=== PATIENT | male | born 1945 | race Caucasian/White ===

== ENCOUNTER 2016-03-19 07:24 | Inpatient (IN) | payer OTHER, BC ==
--- NOTE | 2016-03-19 07:36 | PDOC ---
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 He reports feeling shaky which he states is similar to his prior experience with extreme low blood pressure. He states his blood pressure was 71/ 40 when he checked before coming to the ED. He states he takes a low dose of clonidine ER (1xdaily) which he states lowers his blood pressure slightly, and states if he feels his pressure is too low he pops a salt pill which regulates the pressure. He denies taking the medications today. He reports that after his radiation treatments he has had difficulty controlling his blood pressures (very labile, alternately hypotensive and hypertensive), and reports a recorded high of 249. He states the change between extreme high and low pressures can be within the hour. The patient also states he has cervical problems s/p radiation, but states his neck pain is worse this morning. The pain is similar to previous, no associated facial numbness/tingling vision changes. He denies chest pain, shortness of breath, headache and dizziness. He denies fever, chills, nausea, vomit, diarrhea and constipation. He denies dysuria, frequency, urgency and hematuria. Allergies: NKDA Social history: Denies toxic habits PCP - Dr. Cohen Cardio Dr. Guardado <Casie Moreno - Last Filed: 03/19/16 11:54> - General Stated Complaint: WEAKNESS Time Seen by Provider: 03/19/16 07:36 Past History - Past Medical History Cancer: Yes HTN: Yes Hypercholesterolemia: Yes Thyroid Disease: Yes (hypo) - Psycho/Social/Smoking Cessation Hx Suicidal Ideation: No Smoking History: Unknown if ever smoked Hx Alcohol Use: No Drug/Substance Use Hx: No Substance Use Type: None Hx Substance Use Treatment: No <Ronal Choudhury - Last Filed: 03/19/16 11:02> <Casie Moreno - Last Filed: 03/19/16 11:54> - Past Medical History Allergies/Adverse Reactions: Allergies Allergy/AdvReac Type Severity Reaction Status Date / Time tamsulosin HCl [From Flomax] AdvReac Intermediate dizziness Verified 03/19/16 07 :45 Home Medications: Ambulatory Orders Aspirin [ASA -] 81 mg PO DAILY 10/20/15 Cholecalciferol (Vitamin D3) [Vitamin D3] 2,000 unit PO DAILY 10/20/15 Cyanocobalamin (Vitamin B-12) [Vitamin B-12] 1,000 mcg PO DAILY 10/20/15 Levothyroxine Sodium [Unithroid] 125 mcg PO DAILY 10/20/15 Rosuvastatin Calcium [Crestor] 10 mg PO DAILY 10/20/15 Clonidine HCl [Catapres -] 0.1 mg PO BID #60 tablet 10/23/15 Alfuzosin HCl [Uroxatral] 10 mg PO DAILY 03/19/16 Amlodipine Besylate [Norvasc -] 5 mg PO DAILY PRN 03/19/16 Trospium Chloride [Trospium Chloride ER] 20 mg PO DAILY 03/19/16 Review of Systems - Review of Systems Able to Perform ROS?: Yes Comments:: 03/19/16 09:07 CONSTITUTIONAL: No reported: Fever, Chills, Diaphoresis, Generalized Weakness, Malaise, Loss of Appetite HEENT: No reported: Rhinorrhea, Nasal Congestion, Throat Pain, Throat Swelling, Difficulty Swallowing, Mouth Swelling, Ear Pain, Eye Pain, Visual Changes CARDIOVASCULAR: No reported: Chest Pain, Syncope, Palpitations, Irregular Heart Rate, Lightheadedness, Peripheral Edema RESPIRATORY: No reported: Cough, Shortness of Breath, SOB with Exertion, Orthopnea, Wheezing , Stridor, Hemoptysis GASTROINTESTINAL: No reported: Abdominal pain, Abdominal Distension, Nausea, Vomiting, Diarrhea, Constipation, Melena, Hematochezia GENITOURINARY: No reported: Dysuria, Frequency, Urgency, Hesitancy, Flank Pain, Genital Pain MUSCULOSKELETAL: (+) Neck pain. No reported: Myalgia, Arthralgia, Joint Swelling, Back pain, SKIN: No reported: Rash, Itching, Pallor HEMEATOLOGIC/IMMUNOLOGIC: No reported: Easy Bleeding, Easy Bruising, Lymphadenopathy, Frequent infections ENDOCRINE: No reported: Unexplained Weight Gain, Unexplained Weight Loss, Heat Intolerance , Cold Intolerance NEUROLOGIC: (+) Feeling shaky. No reported: Headache, Focal Weakness, Paresthesias, Vertigo , Lightheadedness, Unsteady Gait, Seizure, Mental Status Changes, Incontinence PSYCHIATRIC: No reported: Anxiety, Depression <Casie Moreno - Last Filed: 03/19/16 11:54> *Physical Exam - Vital Signs Last Vital Signs Temp Pulse Resp BP Pulse Ox 97.9 F 94 H 18 181/98 98 03/19/16 07:46 03/19/16 07:54 03/19/16 07:46 03/19/16 07:46 03/19/16 07:54 - Physical Exam Comments: 03/19/16 09:08 GENERAL: The patient is awake, alert, and fully oriented, Nontoxic - in no acute distress. HEAD: Normocephalic, atraumatic. EYES: extraocular movements intact, sclera anicteric, conjunctiva clear. ENT: Normal voice, Moist mucous membranes. NECK: Normal range of motion, supple LUNGS: Breath sounds equal, clear to auscultation bilaterally. No wheezes, no rhonchi, no rales. HEART: Regular rate and rhythm, without murmur, rub or gallop. ABDOMEN: Soft, nontender, normoactive bowel sounds. No guarding, no rebound.No CVA tenderness EXTREMITIES: Normal range of motion, no edema. No clubbing or cyanosis. No cords, erythema, or tenderness. NEUROLOGICAL: No facial assymetry, Normal speech, PSYCH: Normal mood, normal affect. SKIN: Warm, Dry, normal turgor, <Casie Moreno - Last Filed: 03/19/16 11:54> Heart Score/ECG Review - ECG Impressions Comment:: 03/19/16 09:40 Twelve-lead EKG was performed and reviewed by me. There is normal sinus rhythm with a normal rate. Rate of 90 The intervals are normal. There is normal R wave progression Nonspecific ST-T wave changes <Ronal Choudhury - Last Filed: 03/19/16 11:02> ED Treatment Course - LABORATORY CBC & Chemistry Diagram: 03/19/16 08:10 03/19/16 08:10 <Ronal Choudhury - Last Filed: 03/19/16 11:02> - LABORATORY CBC & Chemistry Diagram: 03/19/16 08:10 03/19/16 08:10 - ADDITIONAL ORDERS Additional order review: Laboratory Results 03/19/16 08:10 Sodium 139 Potassium 3.9 Chloride 103 Carbon Dioxide 27 Anion Gap 9 BUN 21 H D Creatinine 1.4 H D Creat Clearance w eGFR 50.25 Random Glucose 143 H D Calcium 9.2 Total Bilirubin 0.5 AST 15 D ALT 25 D Alkaline Phosphatase 70 Total Protein 6.8 Albumin 4.1 03/19/16 08:10 RBC 4.76 MCV 86.3 MCHC 33.0 RDW 14.2 MPV 7.8 Neutrophils % 85.6 H Lymphocytes % 7.0 L D Monocytes % 6.4 Eosinophils % 0.8 Basophils % 0.2 - RADIOLOGY Radiograph Interpretation: 03/19/16 11:53 CXR was read at 09:32 Impression: No acute pathology <Casie Moreno - Last Filed: 03/19/16 11:54> Medical Decision Making - Medical Decision Making 03/19/16 08:03 70y M hx of throat ca s/p radiation and chemotherapy, labile htn, hl, hypothyroidism, presents with feeling mild headache/lightheaded this morning, pt also had passed out per his , took his BP and was 70s/40s, no cp/sob/ diaphoresis/fever/chills. pts bp here is slightly hypertensive. will ck labs will continue to monitor bp will give percocet for neck pain (secondary to radiatio ninjury) will reassess A portion of this note was documented by scribe services under my direction. I have reviewed the details of the note, within reason, and agree with the documentation with the following case summary and management plan written by me 03/19/16 09:54 labs reviewed pts bp reassessed, now his BP noted low at 99/[address] Cohen regarding disposition 03/19/16 10:50 03/19/16 11:03 case d/w dr. lara (covering for dr. cohen) wlil admit for further management terry ladmit to telemetry Case discussed in detail with admitting physician including history, physical exam and ancillary studies. Admitting physician has assumed care for the patient, will follow all pending diagnostics and will complete the evaluation and treatment. <Ronal Choudhury - Last Filed: 03/19/16 11:02> - Medical Decision Making 03/19/16 11:22 Dr. Cohen was paged at his office at 9:53 for a doctor to doctor consult. I was informed Dr. Lara is covering [facility] today and she was paged overhead at this time. Dr. Lara was paged a second time at 9:58. Dr. Lara was paged a third time at 10:25. She returned the call at 10:40 and the patient's case was discussed. <Casie Moreno - Last Filed: 03/19/16 11:54> *DC/Admit/Observation/Transfer - Discharge Dispostion Admit: Yes <Ronal Choudhury - Last Filed: 03/19/16 11:02> - Attestations Scribe Attestion: 03/19/16 09:08 Documentation prepared by Casie Moreno, acting as medical tech for Ronal Choudhury MD, MD <Casie Moreno - Last Filed: 03/19/16 11:54> Diagnosis at time of Disposition: Labile hypertension Syncope Qualifiers: Syncope type: unspecified Qualified Code(s): R55 - Syncope and collapse - Referrals
[2016-03-19] MEDS ORDERED: OXYCODONE/APAP 5/325MG COMBO TABLET PO ONE (08:06)
[2016-03-19 08:15] VITALS: BMI 32.5
[2016-03-19 08:36] LABS: BASOPHIL 0.2 % (0-2.0); EOSINOPHIL 0.8 % (0-4.5); MCH 28.5 pg (25.7-33.7); MEAN CELL VOLUME 86.3 fl (80-96); MEAN PLT VOLUME 7.8 fl (7.5-11.1); NEUTROPHILS 85.6 % (42.8-82.8); PLATELET COUNT 169 K/MM3 (134-434); RDW 14.2 % (11.9-15.9); WHITE BLOOD COUNT 10.2 K/mm3 (4.0-10.0)
[2016-03-19 08:51] LABS: INR 1.09 (0.82-1.09)
[2016-03-19 08:55] LABS: ALBUMIN 4.1 g/dl (3.4-5.0); BILIRUBIN,TOTAL 0.5 mg/dL (0.2-1.0); CALCIUM 9.2 mg/dL (8.5-10.1); CREATININE 1.4 mg/dL (0.7-1.3); TOT PROT 6.8 g/dl (6.4-8.2)
[2016-03-19] MEDS ORDERED: OXYCODONE/APAP 5/325MG COMBO TABLET ONE (09:41)
--- NOTE | 2016-03-19 13:42 | HP ---
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 He reports feeling shaky which he states is similar to his prior experience with extreme low blood pressure. He states his blood pressure was 71/ 40 when he checked before coming to the ED. He states he takes a low dose of clonidine ER (1xdaily) which he states lowers his blood pressure slightly, and states if he feels his pressure is too low he pops a salt pill which regulates the pressure. He denies taking the medications today. He reports that after his radiation treatments he has had difficulty controlling his blood pressures (very labile, alternately hypotensive and hypertensive), and reports a recorded high of 249. He states the change between extreme high and low pressures can be within the hour. The patient also states he has cervical problems s/p radiation, but states his neck pain is worse this morning. The pain is similar to previous, no associated facial numbness/tingling vision changes. He denies chest pain, shortness of breath, headache and dizziness. He denies fever, chills, nausea, vomit, diarrhea and constipation. He denies dysuria, frequency, urgency and hematuria. per patient he says he was ok last night then today early in morning he started feeling very cold and turned up heat but n relief then when he tried to get up from bed he passed out and fell in bed and thats when he came to ER he takes clonidine ER 01.g daily in afternoon, per patient his BP is very labile and keeps fluctating BP from as low as 60 spb to 240 sbp. 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[employer] , 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 Home Medications - Allergies Allergies/Adverse Reactions: Allergies Allergy/AdvReac Type Severity Reaction Status Date / Time tamsulosin HCl [From Flomax] AdvReac Intermediate dizziness Verified 03/19/16 07 :45 - Home Medications Home Medications: Ambulatory Orders Aspirin [ASA -] 81 mg PO DAILY 10/20/15 Cholecalciferol (Vitamin D3) [Vitamin D3] 2,000 unit PO DAILY 10/20/15 Cyanocobalamin (Vitamin B-12) [Vitamin B-12] 1,000 mcg PO DAILY 10/20/15 Levothyroxine Sodium [Unithroid] 125 mcg PO DAILY 10/20/15 Rosuvastatin Calcium [Crestor] 10 mg PO DAILY 10/20/15 Clonidine HCl [Catapres -] 0.1 mg PO BID #60 tablet 10/23/15 Alfuzosin HCl [Uroxatral] 10 mg PO DAILY 03/19/16 Amlodipine Besylate [Norvasc -] 5 mg PO DAILY PRN 03/19/16 Trospium Chloride [Trospium Chloride ER] 20 mg PO DAILY 03/19/16 Family Disease History - Family Disease History Family Disease History: CA: Father (G-E junction tumor), Mother (lung ca), Sister (breast ca), Other: Brother (goiter surgery) Review of Systems - Review of Systems Constitutional: reports: No Symptoms Neck: reports: No Symptoms Cardiovascular: reports: No Symptoms Respiratory: reports: No Symptoms Gastrointestinal: reports: No Symptoms Physical Examination Vital Signs: Vital Signs Temperature 97.8 F 03/19/16 13:28 Pulse Rate 84 03/19/16 13:28 Respiratory Rate 18 03/19/16 13:28 Blood Pressure 116/71 03/19/16 13:28 O2 Sat by Pulse Oximetry (%) 96 03/19/16 13:28 Constitutional: Yes: Calm Neck: Yes: Trachea Midline Cardiovascular: Yes: Regular Rate and Rhythm, S1, S2 Respiratory: Yes: CTA Bilaterally Gastrointestinal: Yes: Normal Bowel Sounds, Soft Edema: No Imaging - Results Chest X-ray: Report Reviewed Problem List - Problems (1) Syncope Assessment/Plan: tele echo carotid doppler cardio eval possible slight dehydration will give fluids for 6hrs check UA Code(s): R55 - SYNCOPE AND COLLAPSE Qualifiers: Syncope type: unspecified Qualified Code(s): R55 - Syncope and collapse (2) Labile hypertension Assessment/Plan: cardio clonidine ER 0.1mg daily in afternoon norvasc 5mg only takes of BP> 170 if BP< 80 sbptakes nacl tablet Code(s): I10 - ESSENTIAL (PRIMARY) HYPERTENSION (3) Benign prostatic hypertrophy Assessment/Plan: alfuzosin Code(s): N40.0 - BENIGN PROSTATIC HYPERPLASIA WITHOUT LOWER URINRY TRACT SYMP (4) HLD (hyperlipidemia) Assessment/Plan: crestor check lipid panel Code(s): E78.5 - HYPERLIPIDEMIA, UNSPECIFIED Qualifiers: (5) Hypothyroid Assessment/Plan: check tsh and free t4 Code(s): E03.9 - HYPOTHYROIDISM, UNSPECIFIED (6) Renal insufficiency Assessment/Plan: iv hydration Code(s): N28.9 - DISORDER OF KIDNEY AND URETER, UNSPECIFIED (7) History of throat cancer Assessment/Plan: s/p radiation Code(s): Z85.819 - PRSNL HX OF MALIG NEOPLM OF UNSP SITE LIP,ORAL CAV,& PHARYNX
[2016-03-19] MEDS ORDERED: SODIUM CHLORIDE 1,000 ML IV SCH ×2 (14:15→17:00)
[2016-03-19] MEDS ORDERED: cloNIDine HCL 0.1 MG TABLET PO ONE (17:00)
--- NOTE | 2016-03-19 18:15 | EKG ---
Test Reason : Blood Pressure : / mmHG Vent. Rate : 090 BPM Atrial Rate : 090 BPM P-R Int : 172 ms QRS Dur : 096 ms QT Int : 356 ms P-R-T Axes : 049 -05 027 degrees QTc Int : 435 ms NORMAL SINUS RHYTHM NONSPECIFIC ST ABNORMALITY RSR' OR QR PATTERN IN V1 SUGGESTS RIGHT VENTRICULAR CONDUCTION DELAY ABNORMAL ECG WHEN COMPARED WITH ECG OF 20-OCT-2015 04:47, VENT. RATE HAS INCREASED Confirmed by ROMINA DOTSON, ROBEL ([id number]) on 03/19/2016 6:14:59 PM Referred By: Confirmed By:ROBEL VANEGAS MD
--- NOTE | 2016-03-19 18:34 | CONSULT ---
Consult Consult Specialty:: Cardiology Referred by:: Dr. Murillo Reason for Consultation:: Cardiac evaluation - History of Present Illness Chief Complaint: Dizziness, possible syncope History of Present Illness: Patient is a 70 year male who is well known to our service (sees Dr. 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 He presents to ED feeling his blood pressure being low early this morning. His BP was measured at 71/40 mmHg. He usually takes Clonidine ER in the afternoon which he took yesterday. Early this morning, patient was found lethargic and possibly unable to respond while in his bed. His BP tends to be difficult to control as it goes up as high as 240 systolic and low as 70's systolic. He takes salt pill sometime at extreme low BP. He is awake and alert at this time. He denies chest pain, shortness of breath or palpitation. Denies PND or orthopnea. Denies fever or chills. Denies headache or lightheadedness. 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[employer] , [employer] Home Medications - Allergies Allergies/Adverse Reactions: Allergies Allergy/AdvReac Type Severity Reaction Status Date / Time tamsulosin HCl [From Flomax] AdvReac Intermediate dizziness Verified 03/19/16 07 :45 - Home Medications Home Medications: Ambulatory Orders Aspirin [ASA -] 81 mg PO DAILY 10/20/15 Cholecalciferol (Vitamin D3) [Vitamin D3] 2,000 unit PO DAILY 10/20/15 Cyanocobalamin (Vitamin B-12) [Vitamin B-12] 1,000 mcg PO DAILY 10/20/15 Levothyroxine Sodium [Unithroid] 125 mcg PO DAILY 10/20/15 Rosuvastatin Calcium [Crestor] 10 mg PO DAILY 10/20/15 Clonidine HCl [Catapres -] 0.1 mg PO BID #60 tablet 10/23/15 Alfuzosin HCl [Uroxatral] 10 mg PO DAILY 03/19/16 Amlodipine Besylate [Norvasc -] 5 mg PO DAILY PRN 03/19/16 Trospium Chloride [Trospium Chloride ER] 20 mg PO DAILY 03/19/16 Family Disease History - Family Disease History Family Disease History: CA: Father (G-E junction tumor), Mother (lung ca), Sister (breast ca), Other: Brother (goiter surgery) Review of Systems - Review of Systems Constitutional: denies: Chills, Fever Cardiovascular: denies: Chest Pain, Palpitations, Shortness of Breath Respiratory: denies: Cough, Hemoptysis, Orthopnea, PND, SOB, SOB on Exertion Gastrointestinal: denies: Abdominal Pain, Constipation, Diarrhea, Melena, Nausea , Rectal Bleeding, Vomiting Genitourinary: denies: Dysuria Neurological: reports: Dizziness. denies: Headache, Seizure, Syncope Vital Signs: Vital Signs Temperature 97.9 F 03/19/16 15:15 Pulse Rate 90 03/19/16 15:15 Respiratory Rate 18 03/19/16 15:15 Blood Pressure 181/112 03/19/16 15:15 O2 Sat by Pulse Oximetry (%) 96 03/19/16 15:15 Neck: Yes: Supple Respiratory: Yes: CTA Bilaterally Gastrointestinal: Yes: Normal Bowel Sounds, Soft. No: Tenderness Cardiovascular: Yes: Regular Rate and Rhythm JVD: No Carotid Bruit: No PMI: Non-Displaced Heart Sounds: Yes: S1, S2 Edema: No - Other Data Labs, Other Data: INR, PTT INR 1.09 (0.82-1.09) 03/19/16 08:10 Laboratory Results - last 24 hr 03/19/16 03/19/16 03/19/16 08:01 08:10 08:10 WBC 10.2 H D RBC 4.76 Hgb 13.6 Hct 41.1 MCV 86.3 MCHC 33.0 RDW 14.2 Plt Count 169 MPV 7.8 Neutrophils % 85.6 H Lymphocytes % 7.0 L D Monocytes % 6.4 Eosinophils % 0.8 Basophils % 0.2 INR Sodium 139 Potassium 3.9 Chloride 103 Carbon Dioxide 27 Anion Gap 9 BUN 21 H D Creatinine 1.4 H D Creat Clearance w eGFR 50.25 Random Glucose 143 H D Calcium 9.2 Total Bilirubin 0.5 AST 15 D ALT 25 D Alkaline Phosphatase 70 Total Protein 6.8 Albumin 4.1 Blood Type B POSITIVE Antibody Screen Negative Sinus rhythm with nonspecific ST abnormality Imaging - Results Chest X-ray: Report Reviewed EKG: Report Reviewed Problem List - Problems (1) History of throat cancer Code(s): Z85.819 - PRSNL HX OF MALIG NEOPLM OF UNSP SITE LIP,ORAL CAV,& PHARYNX (2) Hypothyroid Code(s): E03.9 - HYPOTHYROIDISM, UNSPECIFIED Qualifiers: Hypothyroidism type: unspecified Qualified Code(s): E03.9 - Hypothyroidism, unspecified (3) Labile hypertension Code(s): I10 - ESSENTIAL (PRIMARY) HYPERTENSION (4) Syncope Code(s): R55 - SYNCOPE AND COLLAPSE Qualifiers: Syncope type: unspecified Qualified Code(s): R55 - Syncope and collapse (5) Autonomic postural hypotension Code(s): I95.1 - ORTHOSTATIC HYPOTENSION (6) HLD (hyperlipidemia) Code(s): E78.5 - HYPERLIPIDEMIA, UNSPECIFIED Qualifiers: Hyperlipidemia type: pure hypercholesterolemia (7) Labile essential hypertension Code(s): I10 - ESSENTIAL (PRIMARY) HYPERTENSION (8) Renal insufficiency Code(s): N28.9 - DISORDER OF KIDNEY AND URETER, UNSPECIFIED Assessment/Plan 1. Autonomic dysfunction due to radiation therapy after head and neck CA - orthostatic hypotension 2. CAD - non-obstructive 3. HTN/HCVD - at times labile and with hypotension due to above 4. Hypercholesterolemia 5. Hypothyroidism 6. Head and neck CA S/P radiation and chemotherapy PLAN: 1. Clonidine ER as tolerated. Patient had taken other medications including Bystolic which was ineffective. Patient may take his own from home. 2. Continue Crestor 3. Continue ASA 4. DVT prophylaxis 5. Transthoracic echocardiogram to assess LV and valvular function - normal LV systolic function, mild LAD, mild MR, TR, AR and small pericardial effusion Further plans are to follow Gutierrez Acevedo MD
[2016-03-19] MEDS: HEPARIN NA (PORCINE) 5,000 UNITS/ML 1ML VIAL SQ SCH (21:18)
[2016-03-19] MEDS: ROSUVASTATIN CA 10 MG TABLET (FP) PO SCH (21:18)
[2016-03-19 21:52] LABS: PH,URINE 5.5 (5.0-8.0); URINE APPEARANCE CLEAR; URINE BILIRUBIN 1+ (NEGATIVE); URINE BLOOD NEGATIVE (NEGATIVE); URINE COLOR YELLOW; URINE GLUCOSE (UA) NEGATIVE (NEGATIVE); URINE KETONE NEGATIVE (NEGATIVE); URINE LEUK ESTERASE NEGATIVE (NEGATIVE); URINE NITRITE NEGATIVE (NEGATIVE); URINE UROBILINOGEN 0.2 E.U/dl E.U./dl (0.2-1.0)
[2016-03-19 21:59] LABS: URINE PROTEIN 1+ (NEGATIVE)
[2016-03-19] MEDS ORDERED: cloNIDine HCL 0.1 MG TABLET PO SCH (22:00)
[2016-03-19 22:14] LABS: GRANULAR CASTS 14 /lpf; URINE BACTERIA RARE /hpf (NONE SEEN); URINE HYALINE CAST 22 /lpf; URINE MUCUS MANY; URINE RBC 5 /hpf (0-3); URINE WBC 9 /hpf (3-5); YEAST FEW
[2016-03-20] MEDS: LEVOTHYROXINE NA 125 MCG TABLET (FP) PO SCH (06:09)
[2016-03-20 06:46] LABS: MCH 28.9 pg (25.7-33.7); MCHC 33.5 g/dl (32.0-35.9); MEAN CELL VOLUME 86.2 fl (80-96); MEAN PLT VOLUME 7.9 fl (7.5-11.1); PLATELET COUNT 166 K/MM3 (134-434); RDW 14.4 % (11.9-15.9)
[2016-03-20 07:30] LABS: ALBUMIN 3.1 g/dl (3.4-5.0); BILIRUBIN,TOTAL 0.4 mg/dL (0.2-1.0); CALCIUM 8.4 mg/dL (8.5-10.1); CREATININE 1.3 mg/dL (0.7-1.3); MAGNESIUM 2.2 mg/dL (1.8-2.4); PHOSPHOROUS 3.6 mg/dL (2.5-4.9); THYROID STIMULATING HORMONE 3.26 uIU/ml (0.358-3.74); TOT PROT 5.6 g/dl (6.4-8.2); TROPONIN I 0.03 ng/ml (0.00-0.05)
[2016-03-20 07:33] LABS: INR 1.1 (0.82-1.09); PROTHROMBIN TIME (PATIENT) 12.1 SEC (9.98-11.88)
[2016-03-20 07:36] LABS: ACTIVATED PTT 29.1 SECONDS (26.9-34.4)
--- NOTE | 2016-03-20 09:20 | PN ---
Progress Note, Physician - Current Medication List Current Medications: Active Medications Aspirin (Ecotrin -) 81 mg PO DAILY [facility] Clonidine (Catapres -) 0.1 mg PO DAILY [facility] Heparin Sodium (Porcine) (Heparin -) 5,000 unit SQ BID [facility] Last Admin: 03/19/16 21:18 Dose: 5,000 unit Sodium Chloride (Normal Saline -) 1,000 mls @ 50 mls/hr IV ASDIR [facility] Last Admin: 03/19/16 17:16 Dose: 50 mls/hr Levothyroxine Sodium (Synthroid -) 125 mcg PO DAILY@0700 [facility] Last Admin: 03/20/16 06:09 Dose: 125 mcg Rosuvastatin Calcium (Crestor -) 10 mg PO HS [facility] Last Admin: 03/19/16 21:18 Dose: 10 mg - Objective Vital Signs: Vital Signs Temperature 98.1 F 03/20/16 06:00 Pulse Rate 74 03/20/16 06:00 Respiratory Rate 20 03/20/16 06:00 Blood Pressure 100/60 03/20/16 06:00 O2 Sat by Pulse Oximetry (%) 96 03/19/16 21:00 Labs: CBC, BMP 03/20/16 05:35 03/20/16 05:35 INR, PTT INR 1.10 (0.82-1.09) 03/20/16 05:35 Assessment/Plan - Problems (1) Syncope Assessment/Plan: DUE TO LOW BP IVF tele echo carotid doppler cardio eval check UA Code(s): R55 - SYNCOPE AND COLLAPSE Qualifiers: Syncope type: unspecified Qualified Code(s): R55 - Syncope and collapse (2) Labile hypertension Assessment/Plan: cardio clonidine ER 0.1mg daily in afternoon norvasc 5mg only takes of BP> 170 if BP< 80 sbp takes nacl tablet Code(s): I10 - ESSENTIAL (PRIMARY) HYPERTENSION (3) Benign prostatic hypertrophy Assessment/Plan: dc alfuzosin start flomax Code(s): N40.0 - BENIGN PROSTATIC HYPERPLASIA WITHOUT LOWER URINRY TRACT SYMP (4) HLD (hyperlipidemia) Assessment/Plan: crestor check lipid panel Code(s): E78.5 - HYPERLIPIDEMIA, UNSPECIFIED Qualifiers: (5) Hypothyroid Assessment/Plan: check tsh and free t4 Code(s): E03.9 - HYPOTHYROIDISM, UNSPECIFIED (6) Renal insufficiency Assessment/Plan: iv hydration Code(s): N28.9 - DISORDER OF KIDNEY AND URETER, UNSPECIFIED (7) History of throat cancer Assessment/Plan: s/p radiation Code(s): Z85.819 - PRSNL HX OF MALIG NEOPLM OF UNSP SITE LIP,ORAL CAV,& PHARYNX
[2016-03-20] MEDS: HEPARIN NA (PORCINE) 5,000 UNITS/ML 1ML VIAL SQ SCH ×2 (09:58→21:07)
[2016-03-20] MEDS: ASPIRIN COATED 81 MG TABLET.EC PO SCH (09:58)
--- NOTE | 2016-03-20 10:38 | PN ---
Progress Note, Physician History of Present Illness: Labile pressures have improved on extended release clonidine, considering trying transdermal formulation. - Current Medication List Current Medications: Active Medications Aspirin (Ecotrin -) 81 mg PO DAILY [facility] Last Admin: 03/20/16 09:58 Dose: 81 mg Clonidine (Catapres -) 0.1 mg PO DAILY [facility] Heparin Sodium (Porcine) (Heparin -) 5,000 unit SQ BID [facility] Last Admin: 03/20/16 09:58 Dose: 5,000 unit Sodium Chloride (Normal Saline -) 1,000 mls @ 125 mls/hr IV ASDIR [facility] Levothyroxine Sodium (Synthroid -) 125 mcg PO DAILY@0700 [facility] Last Admin: 03/20/16 06:09 Dose: 125 mcg Rosuvastatin Calcium (Crestor -) 10 mg PO HS [facility] Last Admin: 03/19/16 21:18 Dose: 10 mg Tamsulosin HCl (Flomax -) 0.8 mg PO DAILY@0830 [facility] - Objective Vital Signs: Vital Signs Temperature 98.1 F 03/20/16 06:00 Pulse Rate 74 03/20/16 06:00 Respiratory Rate 20 03/20/16 06:00 Blood Pressure 100/60 03/20/16 06:00 O2 Sat by Pulse Oximetry (%) 96 03/19/16 21:00 Constitutional: Yes: No Distress, Calm Neck: Yes: Supple Cardiovascular: Yes: Regular Rate and Rhythm Respiratory: Yes: Regular, CTA Bilaterally Gastrointestinal: Yes: Normal Bowel Sounds, Soft Edema: No Labs: CBC, BMP 03/20/16 05:35 03/20/16 05:35 INR, PTT INR 1.10 (0.82-1.09) 03/20/16 05:35 - ....Imaging EKG: Report Reviewed (Tele shows no events) Problem List - Problems (1) Hypothyroid Code(s): E03.9 - HYPOTHYROIDISM, UNSPECIFIED Qualifiers: Hypothyroidism type: unspecified Qualified Code(s): E03.9 - Hypothyroidism, unspecified (2) Labile hypertension Code(s): I10 - ESSENTIAL (PRIMARY) HYPERTENSION (3) Autonomic postural hypotension Code(s): I95.1 - ORTHOSTATIC HYPOTENSION (4) HLD (hyperlipidemia) Code(s): E78.5 - HYPERLIPIDEMIA, UNSPECIFIED Qualifiers: Hyperlipidemia type: pure hypercholesterolemia Qualified Code(s): E78.0 - Pure hypercholesterolemia Assessment/Plan 09/28/2015 Normal LV size and fxn, mild LVH, mild-mod MR, TR, mild MS, AR 10/21/2015 Renovascular ultrasound showed no renal artery stenosis, increased resistive index bilaterally c/w small vessel renal disease 03/19/2016 normal LV systolic function, mild LAD, mild MR, TR, AR and small pericardial effusion 1. Hypertensive cardiovascular disease with labile hypertension and intermittent postural hypotension referable to dysautonomia post head and neck XRT 2. Non-obstructive CAD, angina pectoris 3. Hyperlipidemia 4. Hypothyroidism 5. Benign prostatic hypertrophy P:1. Continue clondine ER as hemodynamics tolerate, continue ASA 81 qd, Crestor 10 qhs 2. F/u carotid u/s
[2016-03-20] MEDS: SODIUM CHLORIDE 1,000 ML IV SCH (12:18)
[2016-03-20] MEDS ORDERED: cloNIDine HCL 0.1 MG TABLET PO SCH (13:00)
[2016-03-20] MEDS: CLONIDINE 0.1 MG PO SCH (18:08)
[2016-03-20] MEDS: ROSUVASTATIN CA 10 MG TABLET (FP) PO SCH (21:07)
[2016-03-21] MEDS: LEVOTHYROXINE NA 125 MCG TABLET (FP) PO SCH (06:21)
[2016-03-21] MEDS ORDERED: TAMSULOSIN HCL 0.4 MG CAP.ER.24H (FP) PO SCH (08:30)
[2016-03-21 08:46] LABS: CALCIUM 8.6 mg/dL (8.5-10.1); CREATININE 0.8 mg/dL (0.7-1.3)
--- NOTE | 2016-03-21 09:01 | DS ---
Physical Examination Vital Signs: Vital Signs Temperature 98.2 F 03/21/16 06:21 Pulse Rate 70 03/21/16 06:21 Respiratory Rate 18 03/21/16 06:21 Blood Pressure 128/88 03/21/16 06:21 O2 Sat by Pulse Oximetry (%) 98 03/20/16 22:02 Neck: Yes: Supple Cardiovascular: Yes: Regular Rate and Rhythm Respiratory: Yes: Regular, CTA Bilaterally Gastrointestinal: Yes: Normal Bowel Sounds, Soft Labs: CBC, BMP 03/20/16 05:35 03/21/16 05:35 Discharge Summary Reason For Visit: SYNCOPE,LABILE HYPERPERTENSION Current Active Problems History of throat cancer (Acute) Hypothyroid (Acute) Labile hypertension (Acute) Syncope (Acute) Hospital Course: The patient is a 70 year old male, with a significant past medical history of hypertension, hypothyroidism, hyperlipidemia, neuropathy (bilateral feet) and 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 He reports feeling shaky which he states is similar to his prior experience with extreme low blood pressure. He states his blood pressure was 71/ 40 when he checked before coming to the ED. He states he takes a low dose of clonidine ER (1xdaily) which he states lowers his blood pressure slightly, and states if he feels his pressure is too low he pops a salt pill which regulates the pressure. He denies taking the medications today. He reports that after his radiation treatments he has had difficulty controlling his blood pressures (very labile, alternately hypotensive and hypertensive), and reports a recorded high of 249. He states the change between extreme high and low pressures can be within the hour. The patient also states he has cervical problems s/p radiation, but states his neck pain is worse this morning. The pain is similar to previous, no associated facial numbness/tingling vision changes. He denies chest pain, shortness of breath, headache and dizziness. He denies fever, chills, nausea, vomit, diarrhea and constipation. He denies dysuria, frequency, urgency and hematuria. per patient he says he was ok last night then today early in morning he started feeling very cold and turned up heat but n relief then when he tried to get up from bed he passed out and fell in bed and thats when he came to ER he takes clonidine ER 01.g daily in afternoon, per patient his BP is very labile and keeps fluctating BP from as low as 60 spb to 240 sbp. 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) ENT: Yes: Other (tongue ca) Endocrine: Yes: Diabetes Mellitus, Hypothyroidism - Problems (1) Syncope Assessment/Plan: DUE TO LOW BP IVF tele echo carotid doppler cardio eval check UA Code(s): R55 - SYNCOPE AND COLLAPSE Qualifiers: Syncope type: unspecified Qualified Code(s): R55 - Syncope and collapse (2) Labile hypertension Assessment/Plan: cardio clonidine ER 0.1mg daily in afternoon norvasc 5mg only takes of BP> 170 if BP< 80 sbp takes nacl tablet Code(s): I10 - ESSENTIAL (PRIMARY) HYPERTENSION (3) Benign prostatic hypertrophy Assessment/Plan: dc alfuzosin start flomax Code(s): N40.0 - BENIGN PROSTATIC HYPERPLASIA WITHOUT LOWER URINRY TRACT SYMP (4) HLD (hyperlipidemia) Assessment/Plan: crestor check lipid panel Code(s): E78.5 - HYPERLIPIDEMIA, UNSPECIFIED Qualifiers: (5) Hypothyroid Assessment/Plan: check tsh and free t4 Code(s): E03.9 - HYPOTHYROIDISM, UNSPECIFIED (6) Renal insufficiency Assessment/Plan: iv hydration Code(s): N28.9 - DISORDER OF KIDNEY AND URETER, UNSPECIFIED (7) History of throat cancer Assessment/Plan: s/p radiation Code(s): Z85.819 - PRSNL HX OF MALIG NEOPLM OF UNSP SITE LIP,ORAL CAV,& PHARYNX - Instructions Referrals: Fern Murillo MD [Primary Care Provider] - 2 Weeks - Home Medications Comprehensive Discharge Medication List: Ambulatory Orders Aspirin [ASA -] 81 mg PO DAILY 10/20/15 Cholecalciferol (Vitamin D3) [Vitamin D3] 2,000 unit PO DAILY 10/20/15 Cyanocobalamin (Vitamin B-12) [Vitamin B-12] 1,000 mcg PO DAILY 10/20/15 Levothyroxine Sodium [Unithroid] 125 mcg PO DAILY 10/20/15 Rosuvastatin Calcium [Crestor] 10 mg PO DAILY 10/20/15 Clonidine HCl [Catapres -] 0.1 mg PO BID #60 tablet 10/23/15 Trospium Chloride [Trospium Chloride ER] 20 mg PO DAILY 03/19/16 Tamsulosin HCl [Flomax -] 0.8 mg PO DAILY@0830 #30 cap.er.24h 03/21/16
[2016-03-21 10:00] VITALS: BP 180/106; PULSE 88; TEMP 97.7
[2016-03-21] MEDS ORDERED: PT OWN MED DRAWER 7, Y5N ONE (10:01)
[2016-03-21] MEDS: HEPARIN NA (PORCINE) 5,000 UNITS/ML 1ML VIAL SQ SCH (10:06)
[2016-03-21] MEDS: SODIUM CHLORIDE 1,000 ML IV SCH (10:07)
[2016-03-21] MEDS: ASPIRIN COATED 81 MG TABLET.EC PO SCH (10:07)
[2016-03-21] MEDS: CLONIDINE 0.1 MG PO SCH (10:11)
== END 2016-03-21 10:40 | disposition home or self-care (01) | DRG 312 ==
LOC: JER 07:24 → JERBED 11:15 → J4S 15:13
PROVIDERS: ADMIT Family Medicine; ATTEND Family Medicine
DX: R55 Syncope and collapse (principal); E03.9 Hypothyroidism, unspecified; E78.5 Hyperlipidemia, unspecified; G62.9 Polyneuropathy, unspecified; N40.0 Benign prostatic hyperplasia without lower urinary tract symptoms; Z85.819 Personal history of malignant neoplasm of unspecified site of lip, oral cavity, and pharynx; I11.9 Hypertensive heart disease without heart failure; I25.119 Atherosclerotic heart disease of native coronary artery with unspecified angina pectoris; N28.9 Disorder of kidney and ureter, unspecified; I95.1 Orthostatic hypotension
CPT/HCPCS: 36415; 71010-TC; 80048; 80053; 80061; 81003; 81015; 82550; 83721; 83735; 83880; 84100; 84443; 84484; 85025; 85027; 85610; 85730; 86850; 86900; 86901; 93005; 93010; 93306-TC; 93880-TC; 99283-25; J1644

== ENCOUNTER 2017-06-17 00:49 | Inpatient (IN) | payer OTHER, BC ==
[2017-06-17] MEDS ORDERED: ACETAMINOPHEN 1000 MG/100 ML VIAL (NON FORMULARY) IVPB ONE (02:01)
[2017-06-17] MEDS ORDERED: SODIUM CHLORIDE 1,000 ML IV STA (02:01)
[2017-06-17 02:18] VITALS: BMI 29.8
[2017-06-17 02:33] LABS: BASO % 0.2 % (0-2.0); EOS % 0.1 % (0-4.5); HEMATOCRIT 37.2 % (35.4-49); HEMOGLOBIN 12.5 GM/dL (11.7-16.9); LYMPH % 1.9 % (8-40); MCH 28.5 pg (25.7-33.7); MCHC 33.5 g/dl (32.0-35.9); MEAN CELL VOLUME 85.2 fl (80-96); MEAN PLT VOLUME 8.3 fl (7.5-11.1); MONO % 3.4 % (3.8-10.2); NEUT % 94.4 % (42.8-82.8); PLATELET COUNT 221 K/MM3 (134-434); RBC 4.37 M/mm3 (4.00-5.60); RDW 14.1 % (11.9-15.9); WHITE BLOOD COUNT 16.9 K/mm3 (4.0-10.0)
--- NOTE | 2017-06-17 02:41 | PDOC ---
History of Present Illness - General Chief Complaint: Weakness Stated Complaint: FEVER,WEAKNESS Time Seen by Provider: 06/17/17 01:43 - History of Present Illness Initial Comments: 06/17/17 02:34 The patient is a 70 year old male with a significant PMH of hypertension, hypothyroidism, hyperlipidemia, neuropathy (bilateral feet) and radiation damage to throat 2/2 throat CA (remission 5 years) who presents to the emergency department with generalized weakness, dizziness, and fever with TMax 104 today. The patient states that he has been having intermittent fevers for a month. He had a chest X-ray and CT scan of his chest as outpt that showed a ground glass opacity. He was never started on abx but was scheduled for scope with Dr. Maki. Pt presents to ED today because he feels very weak. The patient denies vision changes, chest pain, shortness of breath, and headache. Denies nausea, vomit, diarrhea and constipation. Denies dysuria, frequency, urgency and hematuria. Allergies: NKDA Social history: Denies toxic habits PCP - Dr. Murillo Cardio Dr. Guardado Past History - Past Medical History Allergies/Adverse Reactions: Allergies Allergy/AdvReac Type Severity Reaction Status Date / Time tamsulosin HCl [From Flomax] AdvReac Intermediate dizziness Verified 03/19/16 07 :45 Home Medications: Ambulatory Orders Aspirin [ASA -] 81 mg PO DAILY 10/20/15 Cholecalciferol (Vitamin D3) [Vitamin D3] 2,000 unit PO DAILY 10/20/15 Cyanocobalamin (Vitamin B-12) [Vitamin B-12] 1,000 mcg PO DAILY 10/20/15 Levothyroxine Sodium [Unithroid] 125 mcg PO DAILY 10/20/15 Rosuvastatin Calcium [Crestor] 10 mg PO DAILY 10/20/15 cloNIDine HCL [Catapres -] 0.1 mg PO BID #60 tablet 10/23/15 Trospium Chloride [Trospium Chloride ER] 20 mg PO DAILY 03/19/16 Tamsulosin HCl [Flomax -] 0.8 mg PO DAILY@0830 #30 cap.er.24h 03/21/16 Cancer: Yes COPD: No HTN: Yes Hypercholesterolemia: Yes Thyroid Disease: Yes (hypo) - Suicide/Smoking/Psychosocial Hx Smoking History: Never smoked Have you smoked in the past 12 months: No Information on smoking cessation initiated: No Hx Alcohol Use: No Drug/Substance Use Hx: No Substance Use Type: None Hx Substance Use Treatment: No Review of Systems - Review of Systems Comments:: 06/17/17 02:40 "GENERAL/CONSTITUTIONAL: + fever no chills. No weakness. HEAD, EYES, EARS, NOSE AND THROAT: No change in vision. No ear pain or discharge. No sore throat. CARDIOVASCULAR: No chest pain or shortness of breath. RESPIRATORY: + cough, no wheezing, or hemoptysis. GASTROINTESTINAL: No nausea, vomiting, diarrhea or constipation. GENITOURINARY: No dysuria, frequency, or change in urination. MUSCULOSKELETAL: No joint or muscle swelling or pain. No neck or back pain. SKIN: No rash NEUROLOGIC: No headache, vertigo, loss of consciousness, or change in strength/ sensation. ENDOCRINE: No increased thirst. No abnormal weight change. HEMATOLOGIC/LYMPHATIC: No anemia, easy bleeding, or history of blood clots. ALLERGIC/IMMUNOLOGIC: No hives or skin allergy. " *Physical Exam - Vital Signs Last Vital Signs Temp Pulse Resp BP Pulse Ox 101.9 F H 103 H 18 115/63 89 L 06/17/17 00:55 06/17/17 00:55 06/17/17 00:55 06/17/17 00:55 06/17/17 00:55 - Physical Exam Comments: 06/17/17 02:41 "GENERAL: Awake, alert, and fully oriented, in no acute distress. Generally weak appearing. HEAD: No signs of trauma EYES: PERRLA, EOMI, sclera anicteric, conjunctiva clear ENT: Auricles normal inspection, hearing grossly normal, nares patent, oropharynx clear without exudates. Moist mucosa NECK: Nontender, no stepoffs, Normal ROM, supple, no lymphadenopathy, JVD, or masses LUNGS: Breath sounds equal, clear to auscultation bilaterally. No wheezes, and no crackles HEART: Regular rate and rhythm, normal S1 and S2, no murmurs, rubs or gallops ABDOMEN: Soft, nontender, normoactive bowel sounds. No guarding, no rebound. No masses EXTREMITIES: Normal range of motion, no edema. No clubbing or cyanosis. No cords, erythema, or tenderness NEUROLOGICAL: Cranial nerves II through XII intact. 5/5 strength and sensation in all extremities, Normal speech, normal gait, normal cerebellar function SKIN: Warm, Dry, normal turgor, no rashes or lesions noted. " ED Treatment Course - LABORATORY CBC & Chemistry Diagram: 06/17/17 02:00 06/17/17 02:00 - RADIOLOGY Radiology Studies Ordered: Category Date Time Status CHEST X-RAY PORTABLE* [RAD] Stat Radiology 06/17/17 02:01 Ordered Medical Decision Making - Medical Decision Making 06/17/17 02:41 72 M with fever, weakness, and cough. Found to have ground glass opacity on outpt CT chest. In ED, pt is febrile, tachycardic, and hypoxic. Clinically consistent with PNA. Will send cultures and flu swab. - Labs, cultures - CXR, UA - Flu swab - IVF, tylenol - Abx - Admit 06/17/17 03:51 Labs with WBC 16 CXR with no obvious consolidation, but given opacity seen on prior CT scan 2 weeks ago, will cover for CAP Pt admitted to hospitalist. *DC/Admit/Observation/Transfer Diagnosis at time of Disposition: PNA (pneumonia) - Discharge Dispostion Admit: Yes - Referrals Referrals: Fern Murillo MD [Primary Care Provider] - - Patient Instructions - Post Discharge Activity - Attestations Physician Attestion: 06/17/17 03:51 I, Dr. Lito Finley MD, attest that this document has been prepared under my direction and personally reviewed by me in its entirety. I further attest, that it accurately reflects all work, treatment, procedures and medical decision -making performed by me.
[2017-06-17] MEDS ORDERED: ACETAMINOPHEN INJECTION 100 ML IVPB ONE (02:48)
[2017-06-17 02:50] LABS: INR 1.14 (0.82-1.09); PROTHROMBIN TIME (PATIENT) 12.9 SEC (9.98-11.88)
[2017-06-17 02:53] LABS: ACTIVATED PTT 31.1 SECONDS (26.9-34.4)
[2017-06-17 02:56] LABS: ALBUMIN 3.9 g/dl (3.4-5.0); ANION GAP 11 (8-16); BLOOD UREA NITROGEN 22 mg/dL (7-18); CALCIUM 9.1 mg/dL (8.5-10.1); CHLORIDE 100 mmol/L (98-107); CO2 29 mmol/L (21-32); CREATININE 0.9 mg/dL (0.7-1.3); GLUCOSE,RANDOM 156 mg/dL (74-106); POTASSIUM 3.7 mmol/L (3.5-5.1); SGOT/AST 15 U/L (15-37); SGPT/ALT 18 U/L (12-78); SODIUM 140 mmol/L (136-145)
[2017-06-17 02:58] LABS: ALK PHOS 78 U/L (45-117); BILIRUBIN,TOTAL 0.6 mg/dL (0.2-1.0); TOT PROT 7.1 g/dl (6.4-8.2)
[2017-06-17] MEDS ORDERED: AZITHROMYCIN IVPB 500 MG in DEXTROSE 5%-WATER - 250 ML IVPB ONE (03:23)
[2017-06-17] MEDS ORDERED: CEFTRIAXONE 1 GM in DEXTROSE 5%-WATER - 100 ML IVPB ONE (03:23)
[2017-06-17] MEDS ORDERED: AZITHROMYCIN IVPB 250 ML IVPB ONE (03:52)
[2017-06-17] MEDS ORDERED: CEFTRIAXONE 1 GM/50 ML BAG ONE (03:52)
[2017-06-17 05:39] LABS: VENOUS PC02 42.9 mmHg (38-52); VENOUS PH 7.41 (7.32-7.42)
--- NOTE | 2017-06-17 05:43 | HP ---
CHIEF COMPLAINT: fever PCP: Chidi HISTORY OF PRESENT ILLNESS: This is a 72 year old male with a past medical history of HTN, HLD, neuropathy who presented to the ED with fever of 104 today. Pt reports he has been having intermittent fevers for about a month with chills. Also with dry, persistent cough. Had a CT scan last week which revealed ground glass opacities, was referred to Dr. Maki for same. Saw Dr. Maki today prior to fever who scheduled pt for a bronchoscopy. he then went home and spiked a fever which prompted him to come to the ED. ER course was notable for: (1) WBC 16.9 (2) Lactic acid 1.8 (3) temp 101.9 upon arrival Recent Travel: pt denies PAST MEDICAL HISTORY: HTN, HLD, hypothyroid, neuropathy (chemo induced?), 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 damage resulting in wide fluctuations in BP PAST SURGICAL HISTORY: tonsillectomy as a child g-tube placement and subsequent removal 2010 Social History: worked in [employer], + caustic exposures Smoking: pt denies Alcohol: pt denies Drugs: pt denies Allergies tamsulosin HCl [From Flomax] Adverse Reaction (Intermediate, Verified 03/19/16 07:45) dizziness HOME MEDICATIONS: 3 Medication Instructions Recorded Aspirin [ASA -] 81 mg PO DAILY 10/20/15 Cholecalciferol (Vitamin D3) 2,000 unit PO DAILY 10/20/15 [Vitamin D3] Cyanocobalamin (Vitamin B-12) 1,000 mcg PO DAILY 10/20/15 [Vitamin B-12] Levothyroxine Sodium [Unithroid] 125 mcg PO DAILY 10/20/15 Rosuvastatin Calcium [Crestor] 10 mg PO HS 10/20/15 Trospium Chloride [Trospium 20 mg PO BID 03/19/16 Chloride ER] Amlodipine Besylate 5 mg PO DAILY PRN 06/17/17 Midodrine HCl 2.5 mg PO DAILY PRN 06/17/17 cloNIDine HCL [Catapres -] 0.1 mg PO BID PRN 06/17/17 REVIEW OF SYSTEMS CONSTITUTIONAL: Present: fever, chills, diaphoresis Absent: generalized weakness, malaise, loss of appetite, weight change HEENT: Absent: rhinorrhea, nasal congestion, throat pain, throat swelling, difficulty swallowing, mouth swelling, ear pain, eye pain, visual changes CARDIOVASCULAR: Absent: chest pain, syncope, palpitations, irregular heart rate, lightheadedness , peripheral edema RESPIRATORY: Present: cough Absent: shortness of breath, dyspnea with exertion, orthopnea, wheezing, stridor , hemoptysis GASTROINTESTINAL: Absent: abdominal pain, abdominal distension, nausea, vomiting, diarrhea, constipation, melena, hematochezia GENITOURINARY: Absent: dysuria, frequency, urgency, hesitancy, hematuria, flank pain, genital pain MUSCULOSKELETAL: Absent: myalgia, arthralgia, joint swelling, back pain, neck pain SKIN: Absent: rash, itching, pallor HEMATOLOGIC/IMMUNOLOGIC: Absent: easy bleeding, easy bruising, lymphadenopathy, frequent infections ENDOCRINE: Absent: unexplained weight gain, unexplained weight loss, heat intolerance, cold intolerance NEUROLOGIC: Absent: headache, focal weakness or paresthesias, dizziness, unsteady gait, seizure, mental status changes, bladder or bowel incontinence PSYCHIATRIC: Absent: anxiety, depression, suicidal or homicidal ideation, hallucinations. PHYSICAL EXAMINATION Vital Signs - 24 hr 3 06/17/17 00:55 Temperature 101.9 F H Pulse Rate 103 H Respiratory 18 Rate Blood Pressure 115/63 O2 Sat by Pulse 89 L Oximetry (%) GENERAL: Awake, alert, and fully oriented, in no acute distress. HEAD: Normal with no signs of trauma. EYES: Pupils equal, round and reactive to light, extraocular movements intact, sclera anicteric, conjunctiva clear. No lid lag. EARS, NOSE, THROAT: Ears normal, nares patent, oropharynx clear without exudates. Moist mucous membranes. NECK: Normal range of motion, supple without lymphadenopathy, JVD, or masses. LUNGS: Breath sounds equal, clear to auscultation bilaterally. No wheezes. No accessory muscle use. + bibasilar crackles HEART: Regular rate and rhythm, normal S1 and S2 without murmur, rub or gallop. ABDOMEN: Soft, nontender, not distended, normoactive bowel sounds, no guarding, no rebound, no masses. No hepatomegaly or splenomegaly. MUSCULOSKELETAL: Normal range of motion at all joints. No bony deformities or tenderness. No CVA tenderness. UPPER EXTREMITIES: 2+ pulses, warm, well-perfused. No cyanosis. No clubbing. No peripheral edema. LOWER EXTREMITIES: 2+ pulses, warm, well-perfused. No calf tenderness. No peripheral edema. NEUROLOGICAL: Cranial nerves II-XII intact. Normal speech. Normal gait. PSYCHIATRIC: Cooperative. Good eye contact. Appropriate mood and affect. SKIN: Warm, dry, normal turgor, no rashes or lesions noted, normal capillary refill. Laboratory Results - last 24 hr 3 06/17/17 06/17/17 06/17/17 02:00 02:00 02:00 WBC 16.9 H D RBC 4.37 Hgb 12.5 Hct 37.2 MCV 85.2 MCH 28.5 MCHC 33.5 RDW 14.1 Plt Count 221 D MPV 8.3 Neutrophils % 94.4 H Lymphocytes % 1.9 L D Monocytes % 3.4 L Eosinophils % 0.1 D Basophils % 0.2 PT with INR 12.90 H INR 1.14 PTT (Actin FS) 31.1 Sodium 140 Potassium 3.7 Chloride 100 Carbon Dioxide 29 Anion Gap 11 BUN 22 H Creatinine 0.9 Creat Clearance w eGFR > 60 Random Glucose 156 H D Lactic Acid 1.8 Calcium 9.1 Total Bilirubin 0.6 D AST 15 D ALT 18 Alkaline Phosphatase 78 D Troponin I 0.02 D Total Protein 7.1 D Albumin 3.9 D ECG sinus tachycardia vent rate 102, QTC [address]/T wave changes CXR unavailable for viewing ASSESSMENT/PLAN: 72yM with PMH HTN, HLD, hypothyroid, neuropathy, tongue/throat CA with radiation induced damage presented to the ED with fever. Sepsis secondary to CAP - will treat for CAP given fever, cough, and recent CT findings - cont azithro and ceftriaxone - pulm consult HTN - monitor BP and administer meds accordingly HLD - cont home crestor BPH - cont home [id number] BID hypothyroid - cont home synthroid DVT PPX - heparin 5000u TID FEN - tolerating po, will hold on further IVF as pt appears euvolemic - bmp in am 06/18/17 - low sodium diet as tolerated Dispo: Pt currently requires inpatient management of his emergent condition. Visit type - Emergency Visit Emergency Visit: Yes ED Registration Date: 06/17/17 Care time: The patient presented to the Emergency Department on the above date and was hospitalized for further evaluation of their emergent condition. - New Patient This patient is new to me today: Yes Date on this admission: 06/17/17 - Critical Care Critical Care patient: No Hospitalist Screening - Colonoscopy Questionnaire Colonoscopy Questionnaire: Colonoscopy Questionnaire - Patient: 50 - 75 years old and never had a screening colonoscopy: No History of colon or rectal polyps, or CA: No History of IBD, Crohn's disease or UC: No History of abdominal radiation therapy as a child: No - Relative: 1 with colon or rectal CA, or polyps at age 60 or younger: No Colon or rectal CA diagnosed at age 45 or younger: No Multiple relatives with colon or rectal CA: No - Outcome: Screening Result: Negative Screen
[2017-06-17 07:35] LABS: URINE APPEARANCE CLEAR; URINE BILIRUBIN NEGATIVE (<2.0 mg/dL); URINE BLOOD 1+ (NEGATIVE); URINE COLOR STRAW; URINE GLUCOSE (UA) NEGATIVE (NEGATIVE); URINE KETONE NEGATIVE (NEGATIVE); URINE LEUK ESTERASE NEGATIVE (NEGATIVE); URINE NITRITE NEGATIVE (NEGATIVE); URINE PROTEIN NEGATIVE (NEGATIVE); URINE UROBILINOGEN NEGATIVE mg/dL (0.2-1.0)
--- NOTE | 2017-06-17 10:30 | EKG ---
Test Reason : Blood Pressure : / mmHG Vent. Rate : 102 BPM Atrial Rate : 102 BPM P-R Int : 164 ms QRS Dur : 094 ms QT Int : 352 ms P-R-T Axes : 041 -09 060 degrees QTc Int : 458 ms SINUS TACHYCARDIA OTHERWISE NORMAL ECG WHEN COMPARED WITH ECG OF 19-MAR-2016 07:40, NO SIGNIFICANT CHANGE WAS FOUND Confirmed by MD Askew Daniel ([id number]) on 06/17/2017 10:30:35 AM Referred By: Confirmed By:Alexis Askew MD
--- NOTE | 2017-06-17 10:40 | CON.ID ---
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 s/p chemo and RT 2010, he has had feveronce or twice a month. since the end of February! History of Present Illness: he gets fever at night only- starts with chills, then goes to bed and has fevers , sweats it out and he gets better after a couple of hours- this has been happening once or twice a month since February he has had several episodes of hemoptysis- old dry blood- none since May no weight loss good appetite- notes chronic aspiration- coughs all the time and forces food down at dinner sleeps poorly had chest ct last week by Dr Maki- ground glass infiltrate RLL had a dental cleaning within the last 6 months no history of TB worked in [employer] and a/c -now retired saw dr richelle patel 2 weeks ago had endoscopy- ok saw derm recently as well no pets - History Source History Provided By: Patient Limitations to Obtaining History: No Limitations - Past Medical History Cardio/Vascular: Yes: HTN, Hyperlipdemia, Other (Autonomic dysfunction with orthostatic hypotension) Renal/: Yes: BPH Heme/Onc: Yes: Cancer (cancer base of the tongue- s/p chemo and RT) ENT: Yes: Other (head and neck CA) Endocrine: Yes: Diabetes Mellitus, Hypothyroidism - Alcohol/Substance Use Hx Alcohol Use: No History of Substance Use: reports: None - Smoking History Smoking history: Never smoked Have you smoked in the past 12 months: No - Social History Usual Living Arrangement: With Spouse ADL: Independent 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, 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[place] , [employer] Place of : [facility] History of Recent Travel: No Home Medications - Allergies Allergies/Adverse Reactions: Allergies Allergy/AdvReac Type Severity Reaction Status Date / Time tamsulosin HCl [From Flomax] AdvReac Intermediate dizziness Verified 03/19/16 07 :45 - Home Medications Home Medications: Ambulatory Orders Aspirin [ASA -] 81 mg PO DAILY 10/20/15 Cholecalciferol (Vitamin D3) [Vitamin D3] 2,000 unit PO DAILY 10/20/15 Cyanocobalamin (Vitamin B-12) [Vitamin B-12] 1,000 mcg PO DAILY 10/20/15 Levothyroxine Sodium [Unithroid] 125 mcg PO DAILY 10/20/15 Rosuvastatin Calcium [Crestor] 10 mg PO HS 10/20/15 Family Disease History - Family Disease History Family Disease History: CA: Father (G-E junction tumor), Mother (lung ca), Sister (breast ca), Other: Brother (goiter surgery) Review of Systems - Review of Systems Constitutional: reports: Chills, Fever. denies: Loss of Appetite, Malaise, Night Sweats, Unintentional Wgt. Loss Eyes: reports: No Symptoms HENT: reports: Difficult Swallowing. denies: Throat Pain Neck: reports: No Symptoms Cardiovascular: reports: No Symptoms Respiratory: reports: Cough Gastrointestinal: reports: No Symptoms. denies: Abdominal Pain, Constipation, Diarrhea Genitourinary: reports: No Symptoms. denies: Burning, Discharge, Dysuria Musculoskeletal: reports: No Symptoms Integumentary: reports: No Symptoms Neurological: reports: No Symptoms Hematology/Lymphatic: reports: No Symptoms Physical Exam Vital Signs: Vital Signs Temperature 98.2 F 06/17/17 08:48 Pulse Rate 80 06/17/17 10:14 Respiratory Rate 20 06/17/17 08:48 Blood Pressure 184/104 06/17/17 10:14 O2 Sat by Pulse Oximetry (%) 95 06/17/17 07:09 Constitutional: Yes: Well Nourished, No Distress, Calm Eyes: Yes: Conjunctiva Clear, EOM Intact HENT: Yes: Atraumatic, Normocephalic, Other (good dentition). No: Pharyngeal Erythema, Thrush Cardiovascular: Yes: Regular Rate and Rhythm Respiratory: Yes: Regular, CTA Bilaterally Gastrointestinal: Yes: Normal Bowel Sounds, Soft ...Rectal Exam: Yes: Deferred Renal/: No: CVA Tenderness - Left, CVA Tenderness - Right Musculoskeletal: Yes: WNL Extremities: Yes: WNL Edema: LLE: Trace, RLE: Trace Integumentary: No: Jaundice, Rash Neurological: Yes: Alert, Oriented Labs: CBC, BMP 06/17/17 02:00 06/17/17 02:00 Imaging - Results Chest X-ray: Report Reviewed (portable cxray no infiltrate, will repeat pa and lateral) Problem List - Problems (1) FUO (fever of unknown origin) Code(s): R50.9 - FEVER, UNSPECIFIED (2) PNA (pneumonia) Code(s): J18.9 - PNEUMONIA, UNSPECIFIED ORGANISM (3) History of throat cancer Code(s): Z85.819 - PRSNL HX OF MALIG NEOPLM OF UNSP SITE LIP,ORAL CAV,& PHARYNX (4) Benign prostatic hypertrophy Code(s): N40.0 - BENIGN PROSTATIC HYPERPLASIA WITHOUT LOWER URINRY TRACT SYMP Assessment/Plan blood cultures esr/crp sputum culture swallowing eval- ?chronic aspiration quant gold legionella urinary antigen ?sbe, ?pneumonia ?malignancy may need bronch d/w dr lara d/w dr maki
--- NOTE | 2017-06-17 10:41 | PN ---
Progress Note (short form) - Note Progress Note: PULMONARY CONSULTATION DICTATED 06/17/17 IMP INTERMITTENT FEVERS ?ASPIRATION,? INFECTIOUS,?INFLAMMATORY,? RECURRENT ASPIRATION HEMOPTYSIS ? ENDOBRONCHIAL LESION,INFECTIOUS H/O THROAT AND TONGUE CA S/P RT,CHEMO DYSPHAGIA LABILE HTN HYPOTHYROID HLD PLAN IV ABX PER ID CULTURES SWALLOWING EVALUATION ENT EVAL FLEXIBLE BRONCHOSCOPY DR UMANA Problem List - Problems (1) Hemoptysis Code(s): R04.2 - HEMOPTYSIS (2) FUO (fever of unknown origin) Code(s): R50.9 - FEVER, UNSPECIFIED (3) Autonomic postural hypotension Code(s): I95.1 - ORTHOSTATIC HYPOTENSION (4) Benign prostatic hypertrophy Code(s): N40.0 - BENIGN PROSTATIC HYPERPLASIA WITHOUT LOWER URINRY TRACT SYMP (5) HLD (hyperlipidemia) Code(s): E78.5 - HYPERLIPIDEMIA, UNSPECIFIED Qualifiers: Hyperlipidemia type: pure hypercholesterolemia (6) History of throat cancer Code(s): Z85.819 - PRSNL HX OF MALIG NEOPLM OF UNSP SITE LIP,ORAL CAV,& PHARYNX (7) Hypothyroid Code(s): E03.9 - HYPOTHYROIDISM, UNSPECIFIED Qualifiers: Hypothyroidism type: unspecified Qualified Code(s): E03.9 - Hypothyroidism , unspecified (8) Labile essential hypertension Code(s): I10 - ESSENTIAL (PRIMARY) HYPERTENSION
--- NOTE | 2017-06-17 10:49 | PN ---
Progress Note, Physician Chief Complaint: patient seen and examined has had coughin for last few weeks,fever noted was seen by pulm had chest ct and told to come to ER temp 101.4 and WBC 16.9 in ER currently on abx - Current Medication List Current Medications: Active Medications Amlodipine Besylate (Norvasc -) 5 mg PO DAILY [facility] Heparin Sodium (Porcine) (Heparin -) 5,000 unit SQ TID [facility] Ceftriaxone Sodium 2 gm/ (Dextrose) 100 mls @ 200 mls/hr IVPB DAILY [facility] Azithromycin 500 mg/ Dextrose 250 mls @ 250 mls/hr IVPB DAILY [facility] - Objective Vital Signs: Vital Signs Temperature 98.2 F 06/17/17 08:48 Pulse Rate 80 06/17/17 10:14 Respiratory Rate 20 06/17/17 08:48 Blood Pressure 184/104 06/17/17 10:14 O2 Sat by Pulse Oximetry (%) 95 06/17/17 07:09 Constitutional: Yes: Calm Cardiovascular: Yes: Regular Rate and Rhythm, S1, S2 Respiratory: Yes: Diminished (on right side) Gastrointestinal: Yes: Normal Bowel Sounds, Soft Edema: No Neurological: Yes: Alert, Oriented Labs: CBC, BMP 06/17/17 02:00 06/17/17 02:00 INR, PTT INR 1.14 (0.82-1.09) 06/17/17 02:00 Assessment/Plan cough/ r/o CAP pulm ID on board iv abx delonte fay to r/o ? aspiration HTN: has history of labile blood presure he says his normal is around 140-150SBP on norvasc 5mg and says it drops his BP alot will give same dose and monitor DVT ppx
[2017-06-17] MEDS: amLODIPine BESYLATE 5 MG TABLET (FP) PO SCH (11:04)
[2017-06-17] MEDS ORDERED: amLODIPine BESYLATE 5 MG TABLET (FP) ONE (11:05)
--- NOTE | 2017-06-17 11:25 | CONS ---
DATE OF CONSULTATION: REFERRING PHYSICIAN: Fern Murillo MD HISTORY: The patient is a 72-year-old white male with past medical history of tongue and throat cancer status post RT and chemotherapy 2010 at [place], history of hypertension, hyperlipidemia, neuropathy, also labile blood pressure with episodes ranging from highs to hypotension, history of hypothyroidism secondary to radiation therapy, nonsmoker admitted to [facility] with the complaint of a fever of 104. I saw the patient yesterday in my office for initial evaluation. At the time, he presented secondary to intermittent hemoptysis for a couple of months with the last being in May. He has also had intermittent fevers since February. He states his fever usually presents in the evening about 9 o'clock and is associated with chills. He underwent a CAT scan of the chest a week ago, which revealed some ground-glass opacity in the right lower lobe and partial atelectasis right middle lobe. The patient was scheduled for bronchoscopy next week. The patient states that last night he went home and developed a fever of 104 at which time he presented to the emergency room. He denied any chest pain, shortness of breath, cough, or hemoptysis last night. He states that he has dysphagia secondary to radiation and when he swallows either liquids and/or solids it feels like it gets stuck. He is unsure whether or not he aspirates. He has a cough usually worse at nighttime. There is no history of recent travel. There is no history of DVT or PE in the past. He has a history of occupational exposure. 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 Exposure to fumes. PAST MEDICAL HISTORY: Again, includes labile blood pressure, hyperlipidemia, neuropathy, hypothyroidism, oral and throat cancer status post RT and chemotherapy. REVIEW OF SYSTEMS: Positive cough, positive intermittent hemoptysis, positive fever, positive chills. No nausea, no vomiting, no abdominal pain. Positive dysphagia. No lower extremity edema. SOCIAL HISTORY: Again, nonsmoker. Positive history of occupational exposures. CURRENT MEDICATIONS: Include heparin subcutaneous t.i.d. PHYSICAL EXAMINATION: General: The patient is a well-developed, well-nourished male awake and alert in no acute distress. Vital Signs: He is currently afebrile. Blood pressure 184/104, respiratory rate 20, O2 saturation 95% on 3 L. HEENT: Normocephalic and atraumatic. Neck: Supple. Heart: Regular S1, S2. Chest: A few bibasilar crackles. Abdomen: Soft. Bowel sounds are positive. Extremities: No cyanosis or edema. LABORATORIES: WBC 16.9, hemoglobin 12.5, hematocrit 37.2 with a platelet count of 221,000. There are 94 polys, 1 lymphocyte, and 3 monocytes. INR 1.14. Venous blood gas 7.41, PCO2 of 42, PO2 of 49, bicarbonate 26. Electrolytes: BUN 22, creatinine 0.9. Chest x-ray reveals no acute infiltrates or effusions. IMPRESSION: 1. Fever, etiology to be determined with a possible infectious etiology, although the patient has been with intermittent fevers for the past 3 months. 2. Rule out possible aspiration. The patient gives a history of dysphagia. 3. Hemoptysis, again, rule out endobronchial pathology. 4. History of oral throat and tongue cancer status post radiation therapy and chemotherapy. 5. Labile blood pressure with intermittent episodes of hypertension as well as hypotension. 6. Hypothyroidism. 7. Hyperlipidemia. PLAN: Antibiotics as per Infectious Disease. Obtain cultures. Consider swallowing evaluation. Also will schedule for flexible bronchoscopy. SOWMYA UMANA M.D. KENNY/[id number]
--- NOTE | 2017-06-17 14:02 | CONSULT ---
Admitting History and Physical - Primary Care Physician PCP: Jyoti Flores - Admission History of Present Illness: per emr: 72yM with PMH HTN, HLD, hypothyroid, neuropathy, tongue/throat CA with radiation induced damage presented to the ED with fever. Pt coughing for last few weeks,fever noted was seen by pulm had chest ct and told to come to ER temp 101.4 and WBC 16.9 in ER This is my first consult with this pt. Pt and report having intensive RT at [facility] in 2010, at which time he could not swallow and was given a feeding tube. His swallowing improved over 4- 6 months. He had an MBS at [facility] in December 05, 2016. Radiologist report documented residue and silent aspiration. The pt does not have the Speech pathologist's report, however, we sent her an Email to obtain it. Pt denies change of diet at that time of mbs or swallowing strategies given. However, he was taught 2 exercises- Sylvie and effortful swallow. He does not practice the effortful swallow or holding his breath as he feels he will pass out. At times, he will cough food out of his throat hours later eg rice, or eat spaghetti, with some in his mouth and some stuck in his throat. He does cough while drinking at home, and has taught himself to swallow and squeeze to eventually get the food down.. Pt reports his cancer was on the left of midline.Cancer base of the tongue- s/p chemo and RT History Source: Patient, Family Member, Medical Record Limitations to Obtaining History: No Limitations - Past Medical History Cardiovascular: Yes: HTN, Hyperlipdemia, Other (Autonomic dysfunction with orthostatic hypotension) Renal/: Yes: BPH Heme/Onc: Yes: Cancer (cancer base of the tongue- s/p chemo and RT) ENT: Yes: Other (head and neck CA) Endocrine: Yes: Diabetes Mellitus, Hypothyroidism - Smoking History Smoking history: Never smoked Have you smoked in the past 12 months: No - Alcohol/Substance Use Hx Alcohol Use: No History of Substance Use: reports: None - Social History ADL: Independent 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, 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 , 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 History of Recent Travel: No History - Admission Reason For Visit: PNEUMONIA - Diagnostics X-ray: Report Reviewed - General Mental Status: Alert and Oriented, Awake and Alert, Able to Follow Commands Attention: Intact Ability to Follow Directions: Excellent Head/Neck Control: WFL - Hearing Hearing: Functional Speech Evaluation - Communication Primary Language: ICELANDIC Communication: Yes: Within Normal Limits Oral Expression Ability: Yes: No Impairment - Speech Characteristics Voice Loudness: Normal Voice Pitch: Yes: Normal Voice Phonatory-based Quality: Yes: Normal Speech Pattern: Normal Speech Clarity: < 100% Nasal Resonance: Normal Articulation: Yes: Precise - Language/Auditory Comprehension Follows: Yes: 2 Stage Simple Commands - Language/Verbal Expression Able to Respond to Simple Queries: Yes: WNL Able to Communicate Wants and Needs: Yes: WNL Functional Communication Status: Yes: WNL - 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: Yes: WNL Short Term Memory: Yes: WNL - Swallow Evaluation/Bedside Assessment Current Nutritional Intake: Regular, Thin Liquids Oral Secretions: Yes: WFL Dentition: Yes: Adequate, Missing Teeth Facial Symmetry at Rest: Symmetrical Facial Symmetry on Retraction: Symmetrical Sensation: Normal Against Resistance Opening: Normal Against Resistance Closing: Normal Pucker Lips: Normal Smile: Normal Lingual Movement: Normal, Symmetric Lingual Speed of Movement: Normal Lingual Movement Strgth Against Opposition: Normal Lingual Movement Characteristics: Normal Velopharyngeal Movement: Normal Rate of Intake: WFL Sensation: Bite Reflex Labial Seal: WFL Chewing: WFL Oral Prep Time: WFL A-P Transit: WFL Timing of Swallow: WFL Coughing/Throat Clear: Yes (thin liquid, delayed. Not with nectar thick liquid) Recommendations - Speech Evaluation, Impression/Plan Impression: Strong suspicion of aspiration on thin liquid and residue in pharynx. Pt eats rapidly and does not use any swallowing strategies. - Dysphagia Impressions/Plan Swallowing Skills: Impaired Dysphagia Impressions: Mild Impairment, Moderate Impairment, Ongoing Evaluation , Suspect Aspiration *Silent aspiration: cannot be R/O at bedside Dysphagia Treatment Plan: Small Bites, Chin Tuck/Down, Head Turn Left, OOB for meals, OOB for 1 h. after meals, Other (Multiple swallows, alternate a bite of soft cohesive food with extra gravy with a 1/2 tsp of applesauce. Eat slowly, small bites. Trial of head rotation/flexed to left 9Presumed affected side per pt's hx) Cough/reswallow as indicated) Recommendations: MBS w Esophagus (after bronchoscopy performed) - Recommendations Diet Consistency: Dysphagia Whole (extra gravy. Extra applesauce on eac tray.) Medication Administration: Crushed with applesauce Liquids: [place] Thick Supplement: Other (Ensure compact)
[2017-06-17] MEDS: HEPARIN NA (PORCINE) 5,000 UNITS/ML 1ML VIAL SQ SCH ×2 (15:35→21:33)
[2017-06-17] MEDS ORDERED: amLODIPine BESYLATE 5 MG TABLET (FP) PO ONE (17:30)
[2017-06-18] MEDS: HEPARIN NA (PORCINE) 5,000 UNITS/ML 1ML VIAL SQ SCH ×3 (06:46→21:14)
[2017-06-18 07:35] LABS: BASO % 0.3 % (0-2.0); EOS % 3.1 % (0-4.5); HEMATOCRIT 35.8 % (35.4-49); LYMPH % 17.6 % (8-40); MCH 28.5 pg (25.7-33.7); MCHC 33.6 g/dl (32.0-35.9); MEAN CELL VOLUME 84.9 fl (80-96); MEAN PLT VOLUME 7.8 fl (7.5-11.1); PLATELET COUNT 194 K/MM3 (134-434); RBC 4.22 M/mm3 (4.00-5.60); RDW 14.3 % (11.9-15.9)
[2017-06-18 07:46] LABS: ANION GAP 6 (8-16); BLOOD UREA NITROGEN 17 mg/dL (7-18); CALCIUM 9.1 mg/dL (8.5-10.1); CHLORIDE 107 mmol/L (98-107); CO2 32 mmol/L (21-32); CREATININE 0.7 mg/dL (0.7-1.3); GLUCOSE,RANDOM 114 mg/dL (74-106); MAGNESIUM 2.3 mg/dL (1.8-2.4); PHOSPHOROUS 2.9 mg/dL (2.5-4.9); POTASSIUM 3.9 mmol/L (3.5-5.1); SODIUM 145 mmol/L (136-145)
[2017-06-18] MEDS ORDERED: PT OWN MED DRAWER 7, Y5N ONE (09:51)
[2017-06-18] MEDS: amLODIPine BESYLATE 5 MG TABLET (FP) PO SCH (09:59)
[2017-06-18] MEDS: AZITHROMYCIN IVPB 500 MG in SODIUM CHLORIDE 250 ML IVPB SCH (09:59)
[2017-06-18] MEDS: CEFTRIAXONE 2 GM in DEXTROSE 5%-WATER - 100 ML IVPB SCH (09:59)
--- NOTE | 2017-06-18 11:15 | PN ---
Progress Note, Physician Chief Complaint: AWAKE ALERT + DARK COLORED COFFEE GROUND SPUTUM? - Current Medication List Current Medications: Active Medications Amlodipine Besylate (Norvasc -) 5 mg PO DAILY [facility] Last Admin: 06/18/17 09:59 Dose: 5 mg Heparin Sodium (Porcine) (Heparin -) 5,000 unit SQ TID [facility] Last Admin: 06/18/17 06:46 Dose: 5,000 unit Ceftriaxone Sodium 2 gm/ (Dextrose) 100 mls @ 200 mls/hr IVPB DAILY [facility] Last Admin: 06/18/17 09:59 Dose: 200 mls/hr Azithromycin 500 mg/ Sodium (Chloride) 250 mls @ 250 mls/hr IVPB DAILY [facility] Last Admin: 06/18/17 09:59 Dose: 250 mls/hr - Objective Vital Signs: Vital Signs Temperature 98.0 F 06/18/17 06:00 Pulse Rate 75 06/18/17 06:00 Respiratory Rate 20 06/18/17 06:00 Blood Pressure 157/94 06/18/17 06:00 O2 Sat by Pulse Oximetry (%) 97 06/17/17 21:00 Constitutional: Yes: Mild Distress Eyes: Yes: WNL HENT: Yes: WNL Neck: Yes: WNL Cardiovascular: Yes: WNL Respiratory: Yes: WNL Gastrointestinal: Yes: WNL Genitourinary: Yes: WNL Musculoskeletal: Yes: WNL Extremities: Yes: WNL Edema: No Peripheral Pulses WNL: Yes Integumentary: Yes: WNL Wound/Incision: Yes: Clean/Dry Neurological: Yes: WNL ...Motor Strength: WNL Psychiatric: Yes: WNL Labs: CBC, BMP 06/18/17 07:05 06/18/17 07:05 INR, PTT INR 1.14 (0.82-1.09) 06/17/17 02:00 Problem List - Problems (1) HTN (hypertension) Code(s): I10 - ESSENTIAL (PRIMARY) HYPERTENSION (2) FUO (fever of unknown origin) Code(s): R50.9 - FEVER, UNSPECIFIED (3) Hemoptysis Code(s): R04.2 - HEMOPTYSIS (4) PNA (pneumonia) Code(s): J18.9 - PNEUMONIA, UNSPECIFIED ORGANISM (5) Benign prostatic hypertrophy Code(s): N40.0 - BENIGN PROSTATIC HYPERPLASIA WITHOUT LOWER URINRY TRACT SYMP (6) History of throat cancer Code(s): Z85.819 - PRSNL HX OF MALIG NEOPLM OF UNSP SITE LIP,ORAL CAV,& PHARYNX Assessment/Plan MODIFIED BARIUM TODAY BP CONTROL MAY ADD DARIN PULM F/U R/O NEOPLASM IV ABX NEBS
--- NOTE | 2017-06-18 11:39 | PN ---
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 Swallowing compensatory strategies reviewed. For MBS today. Awaiting copy of previous MBS 11/2016 from Speech Pathology at [facility].
--- NOTE | 2017-06-18 14:37 | PN ---
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
--- NOTE | 2017-06-18 18:31 | PN ---
Progress Note (short form) - Note Progress Note: doing well no fevers wbc now normal swallowing evaluation noted now on dysphagia diet Vital Signs Period Temp Pulse Resp BP Sys/Leblanc Pulse Ox Last 24 Hr 97.4 F-98.2 F 72-89 18-20 108-157/66-94 96-97 cor-rrr lungs clear abd soft,nt ext no edema CBC, BMP 06/18/17 07:05 06/18/17 07:05 Laboratory Tests 06/17/17 06/18/17 12:09 07:05 ESR 29 H C-Reactive Protein 7.4 H Microbiology 06/17/17 06:57 Urine - Urine Clean Catch Urine Culture - Final NO GROWTH OBTAINED 06/17/17 02:00 Blood - Peripheral Venous Blood Culture - Preliminary NO GROWTH OBTAINED AFTER 24 HOURS, INCUBATION TO CONTINUE FOR 4 DAYS. 06/17/17 02:00 Blood - Peripheral Venous Blood Culture - Preliminary NO GROWTH OBTAINED AFTER 24 HOURS, INCUBATION TO CONTINUE FOR 4 DAYS. 06/17/17 02:57 Nasopharyngeal Swab Influenza Types A,B Antigen (THERESA) - Final 06/17/17 02:57 Nasopharyngeal Swab - Final a/p fevers/leukocytosis resolved infiltrates on ct scan from last week suspect chronic aspiration he is for bronchoscopy this week continue rocephin/zith for CAP Problem List - Problems (1) FUO (fever of unknown origin) Code(s): R50.9 - FEVER, UNSPECIFIED (2) PNA (pneumonia) Code(s): J18.9 - PNEUMONIA, UNSPECIFIED ORGANISM (3) History of throat cancer Code(s): Z85.819 - PRSNL HX OF MALIG NEOPLM OF UNSP SITE LIP,ORAL CAV,& PHARYNX (4) Benign prostatic hypertrophy Code(s): N40.0 - BENIGN PROSTATIC HYPERPLASIA WITHOUT LOWER URINRY TRACT SYMP
[2017-06-19] MEDS: HEPARIN NA (PORCINE) 5,000 UNITS/ML 1ML VIAL SQ SCH ×3 (06:06→21:43)
[2017-06-19] MEDS: LEVOTHYROXINE NA 125 MCG TABLET (FP) PO SCH (06:06)
--- NOTE | 2017-06-19 09:06 | PN ---
Progress Note, Physician - Current Medication List Current Medications: Active Medications Amlodipine Besylate (Norvasc -) 5 mg PO DAILY [facility] Last Admin: 06/18/17 09:59 Dose: 5 mg Heparin Sodium (Porcine) (Heparin -) 5,000 unit SQ TID [facility] Last Admin: 06/19/17 06:06 Dose: 5,000 unit Ceftriaxone Sodium 2 gm/ (Dextrose) 100 mls @ 200 mls/hr IVPB DAILY [facility] Last Admin: 06/18/17 09:59 Dose: 200 mls/hr Azithromycin 500 mg/ Sodium (Chloride) 250 mls @ 250 mls/hr IVPB DAILY [facility] Last Admin: 06/18/17 09:59 Dose: 250 mls/hr Levothyroxine Sodium (Synthroid -) 125 mcg PO DAILY@0700 [facility] Last Admin: 06/19/17 06:06 Dose: 125 mcg - Objective Vital Signs: Vital Signs Temperature 98.2 F 06/19/17 06:00 Pulse Rate 69 06/19/17 06:00 Respiratory Rate 18 06/19/17 06:00 Blood Pressure 107/66 06/19/17 06:00 O2 Sat by Pulse Oximetry (%) 97 06/18/17 21:00 Cardiovascular: Yes: Regular Rate and Rhythm Respiratory: Yes: Cough, Rhonchi Gastrointestinal: Yes: Normal Bowel Sounds, Soft Labs: CBC, BMP 06/18/17 07:05 06/18/17 07:05 INR, PTT INR 1.14 (0.82-1.09) 06/17/17 02:00 Problem List - Problems (1) Aspiration into respiratory tract Assessment/Plan: -SWALLOW THERAPY -PRECAUTIONS DISCUSSED Code(s): T17.908A - UNSP FB IN RESP TRACT, PART UNSP CAUSING OTH INJURY, INIT (2) HTN (hypertension) Assessment/Plan: -MONITOR Code(s): I10 - ESSENTIAL (PRIMARY) HYPERTENSION (3) Hemoptysis Assessment/Plan: W/U PER PULMONARY -BRONCHOSCOPY Code(s): R04.2 - HEMOPTYSIS (4) PNA (pneumonia) Assessment/Plan: -IV ABX PER ID Code(s): J18.9 - PNEUMONIA, UNSPECIFIED ORGANISM (5) Melanoma Assessment/Plan: -PT MONITORED AY MT SAMIRA Code(s): C43.9 - MALIGNANT MELANOMA OF SKIN, UNSPECIFIED
[2017-06-19] MEDS: AZITHROMYCIN IVPB 500 MG in SODIUM CHLORIDE 250 ML IVPB SCH (09:26)
[2017-06-19] MEDS: CEFTRIAXONE 2 GM in DEXTROSE 5%-WATER - 100 ML IVPB SCH (09:26)
[2017-06-19] MEDS: amLODIPine BESYLATE 5 MG TABLET (FP) PO SCH (09:26)
--- NOTE | 2017-06-19 10:51 | PN ---
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 Dx of mild pharyngeal dysphagia with pharyngeal residue and mild silent aspiration on thin liquid after the swallow. Alternating solids with liquids and swallowing exercises were recommended at that time. Significant dysphagia noted on MBS yesterday, with Mild to moderate silent aspiration on thin liquid and on use of nectar thick liquid for liquid washdown technique. Pt and were educated at length (1.5 hours)on results of MBS. They watched videos of the aspiration to understand it and hopefully will improve compliance with recommendations. Diet modification to pureed, chopped moist foods (tuna, egg salad, chicken salad , extra vanegas, no celery) and easily mashed foods such as fish, quiche. At home, foods can be cooked moist and soft, and mashed with extra gravy/ condiments or cooked and chopped in mold maintenance technician with extra liquid. Espy thick liquids Compensatory strategies-Single, small sips of nectar thick liquid. No straws. No continuous drinking. Chin tuck, hold breath, swallow hard twice, cough hard, reswallow. Supraglottic swallow technique Swallowing exercises -Sylvie, effortful swallow, Tongue resistance exercises. Mouth care/Biotene spray before meals Swallowing tx is vital upon d/c to continue to educate above, monitor tolerance. Repeat MBS as indicated. Reviewed diet rec with need for new orders with nursing/dietary. Dys ground with 1-2 soft items, add tuna, egg salad etc, fish, etc. extra gravy Ensure pudding/magic cup?
--- NOTE | 2017-06-19 11:19 | PN ---
Progress Note, PALS NURSE - Note Progress Note: Pt education: Diet modification to pureed, chopped moist foods (tuna, egg salad, chicken salad , extra vanegas, no celery) and easily mashed foods such as fish, quiche. At home, foods can be cooked moist and soft, and mashed with extra gravy/ condiments or cooked and chopped in erecting crane operator with extra liquid. [place] thick liquids Compensatory strategies-Single, small sips of nectar thick liquid. No straws. No continuous drinking. Chin tuck, hold breath, swallow hard twice, cough hard, reswallow. Supraglottic swallow technique Swallowing exercises -Sylvie, effortful swallow, Tongue resistance exercises. Mouth care/Biotene spray befor meals Swallowing tx is vital upon d/c to continue to educate above, monitor tolerance. Repeat MBS as indicated.
--- NOTE | 2017-06-19 14:09 | PN ---
Progress Note (short form) - Note Progress Note: Feels better today. No hemoptysis. Afebrile. Swallow evaluation noted. Intake & Output 06/16/17 06/17/17 06/18/17 06/19/17 23:59 23:59 23:59 23:59 Intake Total 400 1605 425 Balance 400 1605 425 Weight 220 lb Last Vital Signs Temp Pulse Resp BP Pulse Ox 98 F 74 18 123/67 96 06/19/17 09:38 06/19/17 09:38 06/19/17 09:38 06/19/17 09:38 06/19/17 09:00 Active Medications Amlodipine Besylate (Norvasc -) 5 mg PO DAILY [facility] Last Admin: 06/19/17 09:26 Dose: 5 mg Heparin Sodium (Porcine) (Heparin -) 5,000 unit SQ TID [facility] Last Admin: 06/19/17 06:06 Dose: 5,000 unit Ceftriaxone Sodium 2 gm/ (Dextrose) 100 mls @ 200 mls/hr IVPB DAILY [facility] Last Admin: 06/19/17 09:26 Dose: 200 mls/hr Azithromycin 500 mg/ Sodium (Chloride) 250 mls @ 250 mls/hr IVPB DAILY [facility] Last Admin: 06/19/17 09:26 Dose: 250 mls/hr Levothyroxine Sodium (Synthroid -) 125 mcg PO DAILY@0700 [facility] Last Admin: 06/19/17 06:06 Dose: 125 mcg Constitutional: Yes: NAD Eyes: Yes: WNL HENT: Yes: WNL Neck: Yes: WNL Cardiovascular: Yes: WNL Respiratory: Yes: clear, no wheeze Gastrointestinal: Yes: (+) BS, soft Genitourinary: Yes: WNL Musculoskeletal: Yes: WNL Extremities: Yes: WNL Edema: No Peripheral Pulses WNL: Yes Integumentary: Yes: WNL Neurological: Yes: on-focal ...Motor Strength: WNL Psychiatric: Yes: WNL Labs: Problem List - Problems (1) Hemoptysis Code(s): R04.2 - HEMOPTYSIS (2) FUO (fever of unknown origin) Code(s): R50.9 - FEVER, UNSPECIFIED (3) Autonomic postural hypotension Code(s): I95.1 - ORTHOSTATIC HYPOTENSION (4) Benign prostatic hypertrophy Code(s): N40.0 - BENIGN PROSTATIC HYPERPLASIA WITHOUT LOWER URINRY TRACT SYMP (5) HLD (hyperlipidemia) Code(s): E78.5 - HYPERLIPIDEMIA, UNSPECIFIED Qualifiers: Hyperlipidemia type: pure hypercholesterolemia (6) History of throat cancer Code(s): Z85.819 - PRSNL HX OF MALIG NEOPLM OF UNSP SITE LIP,ORAL CAV,& PHARYNX (7) Hypothyroid Code(s): E03.9 - HYPOTHYROIDISM, UNSPECIFIED Qualifiers: Hypothyroidism type: unspecified Qualified Code(s): E03.9 - Hypothyroidism , unspecified (8) Labile essential hypertension Code(s): I10 - ESSENTIAL (PRIMARY) HYPERTENSION IMP INTERMITTENT FEVERS: LIKELY DUE TO RECURRENT RESOLVED HEMOPTYSIS H/O THROAT AND TONGUE CA S/P RT,CHEMO HTN HYPOTHYROID HLD PLAN ABX PER ID FOLLOW FINAL CULTURES RECOMMENDATIONS PER SWALLOW PACKING MACHINE INSPECTOR HOLD BRONCHOSCOPY FOR NOW / MAY CONSIDER OUTPATIENT DR ARTEAGA
[2017-06-20] MEDS: LEVOTHYROXINE NA 125 MCG TABLET (FP) PO SCH (06:07)
[2017-06-20] MEDS: HEPARIN NA (PORCINE) 5,000 UNITS/ML 1ML VIAL SQ SCH ×2 (06:07→14:19)
--- NOTE | 2017-06-20 09:19 | DS ---
Physical Examination Vital Signs: Vital Signs Temperature 97.8 F 06/20/17 06:00 Pulse Rate 70 06/20/17 06:00 Respiratory Rate 20 06/20/17 06:00 Blood Pressure 126/76 06/20/17 06:00 O2 Sat by Pulse Oximetry (%) 95 06/19/17 21:00 Labs: CBC, BMP 06/18/17 07:05 06/18/17 07:05 Discharge Summary Reason For Visit: PNEUMONIA Current Active Problems Aspiration into respiratory tract (Acute) FUO (fever of unknown origin) (Acute) HTN (hypertension) (Acute) Hemoptysis (Acute) PNA (pneumonia) (Acute) Hospital Course: 72 year old male with a past medical history of HTN, HLD, neuropathy who presented to the ED with fever of 104 today. Pt reports he has been having intermittent fevers for about a month with chills. Also with dry, persistent cough. Had a CT scan last week which revealed ground glass opacities, was referred to Dr. Maki for same. Saw Dr. Maki today prior to fever who scheduled pt for a bronchoscopy. he then went home and spiked a fever which prompted him to come to the ED. 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) ENT: Yes: Other (head and neck CA) Endocrine: Yes: Diabetes Mellitus, Hypothyroidism - Problems (1) Aspiration into respiratory tract Assessment/Plan: -SWALLOW THERAPY -PRECAUTIONS DISCUSSED Code(s): T17.908A - UNSP FB IN RESP TRACT, PART UNSP CAUSING OTH INJURY, INIT (2) HTN (hypertension) Assessment/Plan: -MONITOR Code(s): I10 - ESSENTIAL (PRIMARY) HYPERTENSION (3) Hemoptysis Assessment/Plan: W/U PER PULMONARY -BRONCHOSCOPY Code(s): R04.2 - HEMOPTYSIS (4) PNA (pneumonia) Assessment/Plan: -IV ABX PER ID Code(s): J18.9 - PNEUMONIA, UNSPECIFIED ORGANISM (5) Melanoma Assessment/Plan: -PT MONITORED AY YA HOGAN Code(s): C43.9 - MALIGNANT MELANOMA OF SKIN, UNSPECIFIED Condition: Improved - Instructions Referrals: Fern Murillo MD [Primary Care Provider] - 1 Week Disposition: HOME - Home Medications Comprehensive Discharge Medication List: Ambulatory Orders Aspirin [ASA -] 81 mg PO DAILY 10/20/15 Cholecalciferol (Vitamin D3) [Vitamin D3] 2,000 unit PO DAILY 10/20/15 Cyanocobalamin (Vitamin B-12) [Vitamin B-12] 1,000 mcg PO DAILY 10/20/15 Levothyroxine Sodium [Unithroid] 125 mcg PO DAILY 10/20/15 Rosuvastatin Calcium [Crestor] 10 mg PO HS 10/20/15 Amlodipine Besylate [Norvasc -] 5 mg PO DAILY #30 tablet 06/20/17 Cefuroxime Axetil [Ceftin -] 500 mg PO Q12H #10 tablet 06/20/17
[2017-06-20 09:37] VITALS: TEMP 97.9
[2017-06-20] MEDS ORDERED: PT OWN MED DRAWER 7, Y5N ONE (09:42)
[2017-06-20] MEDS: amLODIPine BESYLATE 5 MG TABLET (FP) PO SCH (09:44)
[2017-06-20] MEDS: CEFTRIAXONE 2 GM in DEXTROSE 5%-WATER - 100 ML IVPB SCH (09:44)
[2017-06-20] MEDS: AZITHROMYCIN IVPB 500 MG in SODIUM CHLORIDE 250 ML IVPB SCH (10:27)
--- NOTE | 2017-06-20 15:04 | PN ---
Progress Note, SOLDERER - Note Progress Note: Pt ordered simply thick Reviewed diet rec with pt and plans for d/c Dys ground with 1-2 soft items, add tuna, egg salad etc, fish, etc. extra gravy Ensure pudding/magic cup rec Pt seems to be coughing less. Reminded pt to Set up appt with swallowing therapist.
--- NOTE | 2017-06-20 15:51 | PN ---
Progress Note, Physician History of Present Illness: PULMONARY ALERT,NO DISTRESS,-SOB,-HEMOPTYSIS - Current Medication List Current Medications: Active Medications Amlodipine Besylate (Norvasc -) 5 mg PO DAILY [facility] Last Admin: 06/20/17 09:44 Dose: 5 mg Heparin Sodium (Porcine) (Heparin -) 5,000 unit SQ TID [facility] Last Admin: 06/20/17 14:19 Dose: 5,000 unit Ceftriaxone Sodium 2 gm/ (Dextrose) 100 mls @ 200 mls/hr IVPB DAILY [facility] Last Admin: 06/20/17 09:44 Dose: 200 mls/hr Azithromycin 500 mg/ Sodium (Chloride) 250 mls @ 250 mls/hr IVPB DAILY [facility] Last Admin: 06/20/17 10:27 Dose: 250 mls/hr Levothyroxine Sodium (Synthroid -) 125 mcg PO DAILY@0700 [facility] Last Admin: 06/20/17 06:07 Dose: 125 mcg - Objective Vital Signs: Vital Signs Temperature 97.9 F 06/20/17 09:33 Pulse Rate 76 06/20/17 09:33 Respiratory Rate 20 06/20/17 09:33 Blood Pressure 137/76 06/20/17 09:33 O2 Sat by Pulse Oximetry (%) 95 06/19/17 21:00 Constitutional: Yes: Well Nourished, Calm Eyes: Yes: WNL HENT: Yes: WNL Neck: Yes: WNL Cardiovascular: Yes: Regular Rate and Rhythm, S1, S2 Respiratory: Yes: CTA Bilaterally Gastrointestinal: Yes: Normal Bowel Sounds, Soft Extremities: Yes: WNL Edema: No Labs: CBC, BMP 06/18/17 07:05 Problem List - Problems (1) Hemoptysis Code(s): R04.2 - HEMOPTYSIS (2) FUO (fever of unknown origin) Code(s): R50.9 - FEVER, UNSPECIFIED (3) Autonomic postural hypotension Code(s): I95.1 - ORTHOSTATIC HYPOTENSION (4) Benign prostatic hypertrophy Code(s): N40.0 - BENIGN PROSTATIC HYPERPLASIA WITHOUT LOWER URINRY TRACT SYMP (5) HLD (hyperlipidemia) Code(s): E78.5 - HYPERLIPIDEMIA, UNSPECIFIED Qualifiers: Hyperlipidemia type: pure hypercholesterolemia (6) History of throat cancer Code(s): Z85.819 - PRSNL HX OF MALIG NEOPLM OF UNSP SITE LIP,ORAL CAV,& PHARYNX (7) Hypothyroid Code(s): E03.9 - HYPOTHYROIDISM, UNSPECIFIED Qualifiers: Hypothyroidism type: unspecified Qualified Code(s): E03.9 - Hypothyroidism , unspecified (8) Labile essential hypertension Code(s): I10 - ESSENTIAL (PRIMARY) HYPERTENSION Assessment/Plan Problem List - Problems (1) Hemoptysis Code(s): R04.2 - HEMOPTYSIS (2) FUO (fever of unknown origin) Code(s): R50.9 - FEVER, UNSPECIFIED (3) Autonomic postural hypotension Code(s): I95.1 - ORTHOSTATIC HYPOTENSION (4) Benign prostatic hypertrophy Code(s): N40.0 - BENIGN PROSTATIC HYPERPLASIA WITHOUT LOWER URINRY TRACT SYMP (5) HLD (hyperlipidemia) Code(s): E78.5 - HYPERLIPIDEMIA, UNSPECIFIED Qualifiers: Hyperlipidemia type: pure hypercholesterolemia (6) History of throat cancer Code(s): Z85.819 - PRSNL HX OF MALIG NEOPLM OF UNSP SITE LIP,ORAL CAV,& PHARYNX (7) Hypothyroid Code(s): E03.9 - HYPOTHYROIDISM, UNSPECIFIED Qualifiers: Hypothyroidism type: unspecified Qualified Code(s): E03.9 - Hypothyroidism , unspecified (8) Labile essential hypertension Code(s): I10 - ESSENTIAL (PRIMARY) HYPERTENSION IMP INTERMITTENT FEVERS: LIKELY DUE TO RECURRENT ASPIRATION RESOLVED HEMOPTYSIS H/O THROAT AND TONGUE CA S/P RT,CHEMO HTN HYPOTHYROID HLD PLAN ABX PER ID RECOMMENDATIONS PER SWALLOW REPAIRER EVAPORATOR OUTPATIENT BRONCHOSCOPY NEXT Friday06/25/[address] UMANA
[2017-06-20 15:54] VITALS: BP 153/92; PULSE 85
== END 2017-06-20 18:48 | disposition home or self-care (01) | DRG 178 ==
LOC: JER 00:49 → JERBED 03:51 → J5S 13:52
PROVIDERS: ADMIT Internal Medicine; ATTEND Family Medicine
DX: J69.0 Pneumonitis due to inhalation of food and vomit (principal); R04.2 Hemoptysis; T17.220A Food in pharynx causing asphyxiation, initial encounter; X58.XXXA Exposure to other specified factors, initial encounter; R13.13 Dysphagia, pharyngeal phase; I95.1 Orthostatic hypotension; C43.9 Malignant melanoma of skin, unspecified; I10 Essential (primary) hypertension; E03.9 Hypothyroidism, unspecified; E78.5 Hyperlipidemia, unspecified; G62.9 Polyneuropathy, unspecified; Z85.12 Personal history of malignant neoplasm of trachea; Z85.810 Personal history of malignant neoplasm of tongue; N40.0 Benign prostatic hyperplasia without lower urinary tract symptoms
CPT/HCPCS: 36415; 71045-TC-FY; 71046-TC-FY; 74230-TC-FY; 80048; 80053; 81003; 81015; 82803; 83605; 83735; 84100; 84484; 85025; 85610; 85651; 85730; 86140; 86480; 87040; 87070; 87086; 87205; 87804; 87899; 92611-GN; 93005; 93010; 99283-25; J0131; J1644; J7030

== ENCOUNTER 2017-06-26 11:16 | Day surgery (SDC) | payer OTHER, BC ==
[2017-06-24 20:08] VITALS: BMI 30.5
[2017-06-26 15:48] VITALS: BP 143/63; PULSE 79; TEMP 97.7
== END 2017-06-26 16:00 | disposition home or self-care (01) ==
LOC: JASU-SURG 11:16
PROVIDERS: ATTEND Internal Medicine
PROC: 0B9M8ZX Drainage of Bilateral Lungs, Via Natural or Artificial Opening Endoscopic, Diagnostic (ICD-10-PCS; principal; 2017-06-26)
DX: R04.2 Hemoptysis (principal); Z85.819 Personal history of malignant neoplasm of unspecified site of lip, oral cavity, and pharynx; E03.9 Hypothyroidism, unspecified; I10 Essential (primary) hypertension; E78.5 Hyperlipidemia, unspecified
CPT/HCPCS: 87070; 87102; 87116; 87205; 87206; 87210; 88108; 88305-TC; 94760

== ENCOUNTER 2017-06-28 02:51 | Inpatient (IN) | payer OTHER, BC ==
[2017-06-28] MEDS ORDERED: SODIUM CHLORIDE 1,000 ML IV STA (03:34)
--- NOTE | 2017-06-28 04:15 | PDOC ---
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 As per patient's , patient began to experiencing gradual weakness while at home last night, stating she gave him tylenol at 9:30pm and put him back to bed. She reports the patient woke up at midnight last night and began to talk to himself and experience delirious behaviour. Patient's reports taking his temperature which showed 103.7, prompting her to bring him into the ED for further evaluation. Patient's reports patient has been experiencing associated symptoms of general body aches coughing, dizziness, blurred vision and shortness of breath. Denies chest pain, nausea, Denies trauma to affected area. Denies contact with sick individuals, out of state traveling. Denies any other symptoms. Allergies: Tamsulosin HCL Social history: No smoking. No alcohol. No illicit Surgical history: tonsillectomy as a child, g-tube placement and subsequent removal 2010 PMD: Dr. Murillo <Jimenez Rouse - Last Filed: 06/28/17 04:36> - General History Source: Patient Exam Limitations: No Limitations <Christel Watts - Last Filed: 06/28/17 06:25> - General Chief Complaint: Respiratory Stated Complaint: FEVER/COUGH Time Seen by Provider: 06/28/17 03:22 Past History <Jimenez Rouse - Last Filed: 06/28/17 04:36> - Past Medical History Anemia: No Asthma: No Cancer: Yes (Tongue and throat CA 2010) Cardiac Disorders: No CVA: No COPD: No CHF: No Dementia: No Diabetes: No GI Disorders: Yes (GERD) Disorders: (BPH) HTN: Yes Hypercholesterolemia: Yes Liver Disease: No Seizures: No Thyroid Disease: Yes (hypo) - Surgical History Abdominal Surgery: No Appendectomy: No Cardiac Surgery: No Cholecystectomy: No Lung Surgery: No Neurologic Surgery: No Orthopedic Surgery: No - Suicide/Smoking/Psychosocial Hx Smoking History: Never smoked Have you smoked in the past 12 months: No Information on smoking cessation initiated: No Hx Alcohol Use: No Drug/Substance Use Hx: No Substance Use Type: Alcohol Hx Substance Use Treatment: No <Christel Watts - Last Filed: 06/28/17 06:25> - Past Medical History Allergies/Adverse Reactions: Allergies Allergy/AdvReac Type Severity Reaction Status Date / Time tamsulosin HCl [From Flomax] AdvReac Intermediate dizziness Verified 06/28/17 03 :34 Home Medications: Ambulatory Orders Aspirin [ASA -] 81 mg PO DAILY 10/20/15 Cholecalciferol (Vitamin D3) [Vitamin D3] 2,000 unit PO DAILY 10/20/15 Cyanocobalamin (Vitamin B-12) [Vitamin B-12] 1,000 mcg PO DAILY 10/20/15 Levothyroxine Sodium [Unithroid] 125 mcg PO DAILY 10/20/15 Rosuvastatin Calcium [Crestor] 10 mg PO HS 10/20/15 Amlodipine Besylate [Norvasc -] 5 mg PO DAILY #30 tablet 06/20/17 Cefuroxime Axetil [Ceftin -] 500 mg PO Q12H #10 tablet 06/20/17 Review of Systems - Review of Systems Able to Perform ROS?: Yes Comments:: 06/28/17 04:37 GENERAL/CONSTITUTIONAL: +Dizziness. +General weakness. +General body aches. No: fever, chills, weakness, loss of appetite. HEAD, EYES, EARS, NOSE AND THROAT: No: change in vision, ear pain, discharge, sore throat, throat swelling. CARDIOVASCULAR: No: chest pain, lightheadedness, palpitations, syncope RESPIRATORY: +Cough. +Sob. No: wheezing, hemoptysis, stridor. GASTROINTESTINAL: No: nausea, vomiting, abdominal cramping, diarrhea, rectal bleeding, constipation. GENITOURINARY: No: dysuria, hematuria, frequency, urgency, flank pain. MUSCULOSKELETAL: No: back pain, neck pain, joint pain, muscle swelling or pain SKIN: No: lesions, pallor, rash or easy bruising. NEUROLOGIC: +Momentary delirium. No: headache, vertigo, paresthesias, weakness ENDOCRINE: No: unexplained weight gain or loss HEMATOLOGIC/LYMPHATIC: No: anemia, easy bleeding, swelling nodes <Jimenez Rouse - Last Filed: 06/28/17 04:36> *Physical Exam - Vital Signs Last Vital Signs Temp Pulse Resp BP Pulse Ox 98.0 F 94 H 22 114/66 92 L 06/28/17 03:30 06/28/17 03:30 06/28/17 03:30 06/28/17 03:30 06/28/17 03:30 - Physical Exam Comments: 06/28/17 04:38 GENERAL: The patient is in no acute distress. HEAD: Normal with no signs of trauma. EYES: PERRLA, EOMI, sclera anicteric, conjunctiva clear. ENT: Ears normal, nares patent, oropharynx clear without exudates. Moist mucous membranes. NECK: Normal range of motion, supple without lymphadenopathy, JVD, or masses. LUNGS: +Rhonchi Left base. +Crackles Left base. Breath sounds equal, clear to auscultation bilaterally. No wheezes, and no crackles. HEART:Regular rate and rhythm, normal S1 and S2 without murmur, rub or gallop. ABDOMEN: Soft, nontender, normoactive bowel sounds. No guarding, no rebound. EXTREMITIES: Normal range of motion, no edema. No clubbing or cyanosis. No erythema, or tenderness. NEUROLOGICAL: Cranial nerves II through XII grossly intact. Normal speech. No focal neurological deficits. MUSCULOSKELETAL: Back nontender to palpation, no CVA tenderness SKIN: +Multiple hyperpigmented lesions. Warm, Dry, normal turgor, no rashes or lesions noted. <Jimenez Rouse - Last Filed: 06/28/17 04:36> - Vital Signs Last Vital Signs Temp Pulse Resp BP Pulse Ox 98.0 F 94 H 22 114/66 92 L 06/28/17 03:30 06/28/17 03:30 06/28/17 03:30 06/28/17 03:30 06/28/17 03:30 <Christel Watts - Last Filed: 06/28/17 06:25> ED Treatment Course - LABORATORY CBC & Chemistry Diagram: 06/28/17 03:53 - ADDITIONAL ORDERS Additional order review: Laboratory Results 06/28/17 03:53 VBG pH 7.46 H POC VBG pCO2 39.3 POC VBG pO2 33.7 D Mixed VBG HCO3 27.8 H 06/28/17 03:53 RBC 4.05 MCV 85.8 MCHC 33.9 RDW 14.7 MPV 7.9 Neutrophils % 77.0 Lymphocytes % 8.7 D Monocytes % 13.5 H Eosinophils % 0.5 D Basophils % 0.3 <Jimenez Rouse - Last Filed: 06/28/17 04:36> - LABORATORY CBC & Chemistry Diagram: 06/28/17 03:53 06/28/17 03:29 - RADIOLOGY Radiology Studies Ordered: Category Date Time Status CHEST X-RAY PORTABLE* [RAD] Stat Radiology 06/28/17 03:29 Ordered <MacChristel - Last Filed: 06/28/17 06:25> Medical Decision Making - Medical Decision Making 06/28/17 05:22 Mr Avila presents to the ER with due to fevers Briefly, he is a 72 yo M h/o HTN, HLD, neuropathy who is s/p recent admission for hemoptysis and fevers, found to have aspiration. Pt 2 days s/p bronchoscopy He had had bodyaches, decreased po intake all day This evening, he was noted by his to be confused, and sayinf strange things She checked his temperature and it was 103.7 Pt has had a cough (unchanged) No abdominal pain or nausea No vomiting, no diarrhea No rash He checks his O2 saturations at home and notes that his saturations were low - 80s On exam: Awake, alert, and fully oriented, in no acute distress. Left basilar crackles and rhonchi, No wheezes HEART: Regular rate and rhythm ABDOMEN: Soft, nontender, not distended UPPER EXTREMITIES: 2+ pulses, warm, well-perfused. No cyanosis. No clubbing. No peripheral edema. LOWER EXTREMITIES: 2+ pulses, warm, well-perfused. No calf tenderness. No peripheral edema. NEUROLOGICAL: Cranial nerves II-XII intact. Normal speech. Normal gait. PSYCHIATRIC: Cooperative. Good eye contact. Appropriate mood and affect. SKIN: Multiple hyperpigmented lesions noted on chest wall Sepsis order set placed Pt O2 saturations 89%, placed on supplemental O2 EKG: Sinus rhythm, rate of 89 bpm, axis is normal, no ST elevations or depressions, T waves upright 06/28/17 05:30 Laboratory Tests 06/18/17 06/28/17 06/28/17 07:05 03:29 03:53 WBC 5.1 Hgb 11.8 Hct 34.7 L Plt Count 163 Neutrophils % 77.0 Lymphocytes % 8.7 D PT with INR INR PTT (Actin FS) Sodium 139 Potassium 4.0 Chloride 101 Carbon Dioxide 27 Anion Gap 6 L 11 BUN 21 H D Creatinine 0.7 D 1.3 D Troponin I 06/28/17 06/28/17 03:53 03:53 WBC Hgb Hct Plt Count Neutrophils % Lymphocytes % PT with INR 12.50 H INR 1.11 PTT (Actin FS) 31.7 Sodium Potassium Chloride Carbon Dioxide Anion Gap BUN Creatinine Troponin I 0.02 CXR: left basilar changes No fever in ER No leukocytosis Lactate nml Will hold abx at this point (unclear if basilar changes are related to bronc) will place on observation to the hospitalist service clinical impression: hypoxia, initial presentation 06/28/17 06:24 <Christel Watts - Last Filed: 06/28/17 06:25> *DC/Admit/Observation/Transfer - Attestations Scribe Attestion: 06/28/17 04:38 Documentation prepared by Jimenez Rouse, acting as claim review medical director for Christel Watts MD/DO. <Jimenez Rouse - Last Filed: 06/28/17 04:36> - Discharge Dispostion Admit: Yes <Christel Watts - Last Filed: 06/28/17 06:25> Diagnosis at time of Disposition: Renal insufficiency, Hypoxia - Discharge Dispostion Condition at time of disposition: Stable
[2017-06-28 04:16] LABS: BASO % 0.3 % (0-2.0); EOS % 0.5 % (0-4.5); HEMATOCRIT 34.7 % (35.4-49); HEMOGLOBIN 11.8 GM/dL (11.7-16.9); LYMPH % 8.7 % (8-40); MCH 29.1 pg (25.7-33.7); MCHC 33.9 g/dl (32.0-35.9); MEAN CELL VOLUME 85.8 fl (80-96); MEAN PLT VOLUME 7.9 fl (7.5-11.1); MONO % 13.5 % (3.8-10.2); PLATELET COUNT 163 K/MM3 (134-434); RBC 4.05 M/mm3 (4.00-5.60); RDW 14.7 % (11.9-15.9); WHITE BLOOD COUNT 5.1 K/mm3 (4.0-10.0)
[2017-06-28 04:21] LABS: VENOUS PC02 39.3 mmHg (38-52); VENOUS PH 7.46 (7.32-7.42)
[2017-06-28 04:22] LABS: VENOUS PO2 33.7 mmHg (28-48)
[2017-06-28 04:30] LABS: INR 1.11 (0.82-1.09); PROTHROMBIN TIME (PATIENT) 12.5 SEC (9.98-11.88)
[2017-06-28 04:33] LABS: ACTIVATED PTT 31.7 SECONDS (26.9-34.4)
[2017-06-28 04:41] LABS: ALBUMIN 3.5 g/dl (3.4-5.0); ANION GAP 11 (8-16); BILIRUBIN,TOTAL 0.6 mg/dL (0.2-1.0); BLOOD UREA NITROGEN 21 mg/dL (7-18); CALCIUM 8.6 mg/dL (8.5-10.1); CHLORIDE 101 mmol/L (98-107); CO2 27 mmol/L (21-32); CREATININE 1.3 mg/dL (0.7-1.3); GLUCOSE,RANDOM 113 mg/dL (74-106); SGOT/AST 15 U/L (15-37); SGPT/ALT 28 U/L (12-78); SODIUM 139 mmol/L (136-145); TOT PROT 6.2 g/dl (6.4-8.2)
[2017-06-28 04:44] LABS: ALK PHOS 65 U/L (45-117)
[2017-06-28 06:14] LABS: URINE APPEARANCE SLCLOUDY; URINE BILIRUBIN NEGATIVE (<2.0 mg/dL); URINE BLOOD NEGATIVE (NEGATIVE); URINE COLOR YELLOW; URINE GLUCOSE (UA) NEGATIVE (NEGATIVE); URINE KETONE NEGATIVE (NEGATIVE); URINE LEUK ESTERASE NEGATIVE (NEGATIVE); URINE NITRITE NEGATIVE (NEGATIVE); URINE UROBILINOGEN NEGATIVE mg/dL (0.2-1.0)
[2017-06-28 06:15] LABS: URINE PROTEIN 1+ (NEGATIVE)
[2017-06-28 06:22] LABS: EPI CELLS RARE /HPF (FEW); URINE BACTERIA RARE /hpf (NONE SEEN); URINE HYALINE CAST 14 /lpf; URINE MUCUS MODERATE
--- NOTE | 2017-06-28 06:37 | HP ---
CHIEF COMPLAINT: fever PCP: Chidi HISTORY OF PRESENT ILLNESS: This is a 72 year old male with a past medical history significant for chronic silent aspiration, HTN, HLD, neuropathy who presented to the ED with fever of 103.7 last night. gave pt tylenol around 930pm. No fever upon arrival to ED or since. Recent hospitalization 06/17/17-06/20/17 for fever, found to have silent aspiration. His diet was changed to chopped with nectar thick liquids with improvement in cough. Pt is s/p bronchoscopy on 06/26. Pt also reports desat into 70s on home oximeter. Here sat was in high 80s prior to being placed on oxygen. Pt states that he has had some SOB since bronchoscopy on . Denies CP or change in cough. Pt reports strict compliance with chopped diet with nectar thick liquids. 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 resulting in wide fluctuations in BP, chronic silent aspiration PAST SURGICAL HISTORY: tonsillectomy as a child g-tube placement and subsequent removal 2010 Social History: worked in [employer] industry, + caustic exposures Smoking: pt denies Alcohol: pt denies Drugs: pt denies Family History: mother age 87, dementia father age 94, esophagus CA sister with breast CA one sister and one brother alive and well Allergies tamsulosin HCl [From [employer]] Adverse Reaction (Intermediate, Verified 06/28/17 03:34) dizziness HOME MEDICATIONS: 3 Medication Instructions Recorded Aspirin [ASA -] 81 mg PO DAILY 10/20/15 Cholecalciferol (Vitamin D3) 2,000 unit PO DAILY 10/20/15 [Vitamin D3] Cyanocobalamin (Vitamin B-12) 1,000 mcg PO DAILY 10/20/15 [Vitamin B-12] Levothyroxine Sodium [Unithroid] 125 mcg PO DAILY 10/20/15 Rosuvastatin Calcium [Crestor] 10 mg PO HS 10/20/15 Amlodipine Besylate [Norvasc -] 5 mg PO DAILY #30 tablet 06/20/17 Cefuroxime Axetil [Ceftin -] 500 mg PO Q12H #10 tablet 06/20/17 REVIEW OF SYSTEMS CONSTITUTIONAL: Present: fever, chills Absent: diaphoresis, generalized weakness, malaise, loss of appetite, weight change HEENT: Absent: rhinorrhea, nasal congestion, throat pain, throat swelling, difficulty swallowing, mouth swelling, ear pain, eye pain, visual changes CARDIOVASCULAR: Absent: chest pain, syncope, palpitations, irregular heart rate, lightheadedness , peripheral edema RESPIRATORY: Present: shortness of breath Absent: cough, dyspnea with exertion, orthopnea, wheezing, stridor, hemoptysis GASTROINTESTINAL: Absent: abdominal pain, abdominal distension, nausea, vomiting, diarrhea, constipation, melena, hematochezia GENITOURINARY: Absent: dysuria, frequency, urgency, hesitancy, hematuria, flank pain, genital pain MUSCULOSKELETAL: Absent: myalgia, arthralgia, joint swelling, back pain, neck pain SKIN: Absent: rash, itching, pallor HEMATOLOGIC/IMMUNOLOGIC: Absent: easy bleeding, easy bruising, lymphadenopathy, frequent infections ENDOCRINE: Absent: unexplained weight gain, unexplained weight loss, heat intolerance, cold intolerance NEUROLOGIC: Absent: headache, focal weakness or paresthesias, dizziness, unsteady gait, seizure, mental status changes, bladder or bowel incontinence PSYCHIATRIC: Absent: anxiety, depression, suicidal or homicidal ideation, hallucinations. PHYSICAL EXAMINATION Vital Signs - 24 hr 3 06/28/17 03:30 Temperature 98.0 F Pulse Rate 94 H Respiratory 22 Rate Blood Pressure 114/66 O2 Sat by Pulse 92 L Oximetry (%) GENERAL: Awake, alert, and fully oriented, in no acute distress. HEAD: Normal with no signs of trauma. EYES: Pupils equal, round and reactive to light, extraocular movements intact, sclera anicteric, conjunctiva clear. No lid lag. EARS, NOSE, THROAT: Ears normal, nares patent, oropharynx clear without exudates. Moist mucous membranes. NECK: Normal range of motion, supple without lymphadenopathy, JVD, or masses. LUNGS: Breath sounds equal, clear to auscultation bilaterally upper lung chisholm. Crackles present bilat bases. No wheezes. No accessory muscle use. HEART: Regular rate and rhythm, normal S1 and S2 without murmur, rub or gallop. ABDOMEN: Soft, nontender, not distended, normoactive bowel sounds, no guarding, no rebound, no masses. No hepatomegaly or splenomegaly. MUSCULOSKELETAL: Normal range of motion at all joints. No bony deformities or tenderness. No CVA tenderness. UPPER EXTREMITIES: 2+ pulses, warm, well-perfused. No cyanosis. No clubbing. No peripheral edema. LOWER EXTREMITIES: 2+ pulses, warm, well-perfused. No calf tenderness. No peripheral edema. NEUROLOGICAL: Cranial nerves II-XII intact. Normal speech. Normal gait. PSYCHIATRIC: Cooperative. Good eye contact. Appropriate mood and affect. SKIN: Warm, dry, normal turgor, no rashes or lesions noted, normal capillary refill. Laboratory Results - last 24 hr 3 06/28/17 06/28/17 06/28/17 03:29 03:53 03:53 WBC 5.1 RBC 4.05 Hgb 11.8 Hct 34.7 L MCV 85.8 MCH 29.1 MCHC 33.9 RDW 14.7 Plt Count 163 MPV 7.9 Neutrophils % 77.0 Lymphocytes % 8.7 D Monocytes % 13.5 H Eosinophils % 0.5 D Basophils % 0.3 PT with INR 12.50 H INR 1.11 PTT (Actin FS) 31.7 VBG pH POC VBG pCO2 POC VBG pO2 Mixed VBG HCO3 Sodium 139 Potassium 4.0 Chloride 101 Carbon Dioxide 27 Anion Gap 11 BUN 21 H D Creatinine 1.3 D Creat Clearance w eGFR 54.42 Random Glucose 113 H Lactic Acid Calcium 8.6 Total Bilirubin 0.6 AST 15 ALT 28 D Alkaline Phosphatase 65 Troponin I Total Protein 6.2 L Albumin 3.5 Urine Color Urine Appearance Urine pH Ur Specific [place] Urine Protein Urine Glucose (UA) Urine Ketones Urine Blood Urine Nitrite Urine Bilirubin Urine Urobilinogen Ur Leukocyte Esterase 3 06/28/17 06/28/17 06/28/17 03:53 03:53 03:53 WBC RBC Hgb Hct MCV MCH MCHC RDW Plt Count MPV Neutrophils % Lymphocytes % Monocytes % Eosinophils % Basophils % PT with INR INR PTT (Actin FS) VBG pH 7.46 H POC VBG pCO2 39.3 POC VBG pO2 33.7 D Mixed VBG HCO3 27.8 H Sodium Potassium Chloride Carbon Dioxide Anion Gap BUN Creatinine Creat Clearance w eGFR Random Glucose Lactic Acid 1.1 Calcium Total Bilirubin AST ALT Alkaline Phosphatase Troponin I 0.02 Total Protein Albumin Urine Color Urine Appearance Urine pH Ur Specific [place] Urine Protein Urine Glucose (UA) Urine Ketones Urine Blood Urine Nitrite Urine Bilirubin Urine Urobilinogen Ur Leukocyte Esterase 3 Urine Color Yellow 06/28/17 06:05 Urine Appearance Slcloudy 06/28/17 06:05 Urine pH 5.0 (5.0-8.0) 06/28/17 06:05 Ur Specific [place] 1.017 (1.001-1.035) 06/28/17 06:05 Urine Protein 1+ (NEGATIVE) H 06/28/17 06:05 Urine Glucose (UA) Negative (NEGATIVE) 06/28/17 06:05 Urine Ketones Negative (NEGATIVE) 06/28/17 06:05 Urine Blood Negative (NEGATIVE) 06/28/17 06:05 Urine Nitrite Negative (NEGATIVE) 06/28/17 06:05 Urine Bilirubin Negative (<2.0 mg/dL) 06/28/17 06:05 Ur Leukocyte Esterase Negative (NEGATIVE) 06/28/17 06:05 CXR official read pending, follow results ASSESSMENT/PLAN: 72yM with PMH HTN, HLD, hypothyroid, neuropathy (chemo induced?), 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 fever - unclear origin. No elevated WBC, no elevated lactic acid, does not appear septic - will monitor off antibiotics for now, would start if spikes fever. - ID consult Hypoxia - unclear etiology - pulmonary consult - cont oxygen via NC, sat improved and pt much more comfortable with same. mild elevation in Cr - ? hypovolemia r/t new diet / thickened liquids - gentle IV hydration NS 50cc/hr x 1 liter then reassess HTN - cont home amlodipine HLD - cont home crestor hypothyroid - cont home synthroid DVT PPX - heparin 5000u BID FEN - gentle IV hydration NS @ 50cc/hr x 1 liter - BMP in am 06/29 - chopped diet with nectar thick liquids Dispo: Pt currently requires further observation for management of his emergent condition. Visit type - Emergency Visit Emergency Visit: Yes ED Registration Date: 06/28/17 Care time: The patient presented to the Emergency Department on the above date and was hospitalized for further evaluation of their emergent condition. - New Patient This patient is new to me today: Yes Date on this admission: 06/28/17 - Critical Care Critical Care patient: No Hospitalist Screening - Colonoscopy Questionnaire Colonoscopy Questionnaire: Colonoscopy Questionnaire - Patient: 50 - 75 years old and never had a screening colonoscopy: Unknown History of colon or rectal polyps, or CA: No History of IBD, Crohn's disease or UC: No History of abdominal radiation therapy as a child: No - Relative: 1 with colon or rectal CA, or polyps at age 60 or younger: No Colon or rectal CA diagnosed at age 45 or younger: No Multiple relatives with colon or rectal CA: No - Outcome: Screening Result: Negative Screen
[2017-06-28] MEDS ORDERED: SODIUM CHLORIDE 1,000 ML IV SCH (06:45)
--- NOTE | 2017-06-28 07:37 | PN ---
Progress Note (short form) - Note Progress Note: ID Mr Avila admitted not feeling well yesterday with temp found to be 103.7 at home. He has history of recurrent aspirations possible related to a history of laryngeal cancer in 2010 [facility] gOT CHEMOTHERAPY AND radiation therapy and had a G tube at that time. Has had aspiration documented and says on off fevers since apr. IN june admitted with fever and WBC and cultures all negative. Bronch done 2 days ago outpt says results normal No cultures sent says he couphs up blood intermittently. Recent CT ground glass infiltrate RML. Now afebrile and looks comfortable Hypoxic on admission. Denies travel smoking LIves with . No pets or hobbies Says has enlarged prostate,neuropathy Laboratory Tests 06/28/17 06/28/17 06/28/17 03:29 03:53 06:05 WBCAssessment 5.1 Hgb 11.8 Hct 34.7 L Plt Count 163 Neutrophils % 77.0 Lymphocytes % 8.7 D Monocytes % 13.5 H BUN 21 H D Creatinine 1.3 D Creat Clearance w eGFR 54.42 Total Bilirubin 0.6 AST 15 ALT 28 D Alkaline Phosphatase 65 Total Protein 6.2 L Albumin 3.5 Urine WBC (Auto) 3 Urine RBC (Auto) 3 Selected Entries 06/28/17 03:30 Temperature 98.0 F Pulse Rate 94 H Respiratory 22 Rate Blood Pressure 114/66 O2 Sat by Pulse 92 L Oximetry (%) Weight 220 lb Assessment Possible that aspirations causing his fever. Currently afebrile and looks comfortable normal WBC Recent bronch 06/26 ? aspiration Plan Observe off antibiotics ESR CRP Would CT to look for malignancy Ivett DOTSON Problem List - Problems (1) Aspiration into respiratory tract Code(s): T17.908A - UNSP FB IN RESP TRACT, PART UNSP CAUSING OTH INJURY, INIT (2) FUO (fever of unknown origin) Code(s): R50.9 - FEVER, UNSPECIFIED
--- NOTE | 2017-06-28 08:25 | CONS ---
DATE OF CONSULTATION: DATE OF DICTATION: 06/28/2017 HISTORY OF PRESENT ILLNESS: This is a 72-year-old male who presents with a chief complaint of not feeling well at home yesterday and found to have a temperature at home of 103.7. The history is significant in that the patient in 2010 was diagnosed with a laryngeal cancer and treated at [facility] with radiation therapy and chemotherapy. He notes during that period of time he required a gastrostomy tube for feeding. This has since been removed. Over the last several months dating back perhaps to April he states he has had intermittent episodes of fever at home. In June of this year he was admitted to [facility] with documented fever to 101.9. Cultures were obtained at that time, blood and urine, all negative, and a sputum had normal respiratory culture. A CT imaging study showed some ground-glass infiltrate in the middle lobe and the patient has reported intermittent episodes of hemoptysis. He denies any prior history of tuberculosis and on June 26 he apparently underwent a bronchoscopy at [facility] as an outpatient. I could not find a report of the procedure, but the patient noted that he was told that everything was normal. He had been home since the procedure and yesterday said that he did not feel well and when his took his temperature it was 103.7. His O2 saturation was noted to be 92%, though he denied any shortness of breath. A decision was made to manage him off of antibiotics as here he has been afebrile and appears stable. He has no history of recent travel. His tuberculosis status is unknown. He is and no HIV risk factors. He has no pets and no unusual hobbies. He has been apparently diagnosed with aspiration and had a modified barium swallow study done June 18 which confirmed silent aspiration. His x-ray here shows no evidence of acute infiltrate. PAST MEDICAL HISTORY: Laryngeal cancer, radiation and chemotherapy, neuropathy, hyperlipidemia, hypothyroidism. CURRENT MEDICATIONS: Amlodipine, Crestor, aspirin, Synthroid, vitamin D. ALLERGIES: TAMSULOSIN? SOCIAL HISTORY: Nonsmoker. No history of ETOH. Retired. No history of occupational lung. FAMILY HISTORY: Positive for gastric cancer. REVIEW OF SYSTEMS: Respiratory: Hemoptysis intermittently with chronic cough. Cardiac: No chest pain, palpitations, syncope. Gastrointestinal: No weight loss, abdominal pain, nausea, vomiting. Genitourinary: History of enlarged prostate, frequent urination, urgency chronically. PHYSICAL EXAMINATION: General: Revealed a plcw-[id number]-bssrxgjnu male in no acute distress. Vital Signs: His temperature was 98, pulse 94, blood pressure 114/66, respirations 22. HEENT: Revealed his own teeth, several missing. Neck: Supple. No adenopathy. Lungs: Clear to P & A. Heart: S1, S2. Regular rhythm. Abdomen: Soft, nontender, without organomegaly, guarding or rebound. Extremities: No clubbing, cyanosis or edema. LABORATORY DATA: The white count was 5.1, hemoglobin 11.8, platelets of 163. ESR of 29. BUN 21, creatinine 1.3. Liver enzymes within normal limits. Urinalysis: WBCs 3, 3 RBCs, rare bacteria. Chest x-ray with no acute infiltrate seen. ASSESSMENT: A 72-year-old male with history of laryngeal cancer, 2010, recently diagnosed silent aspiration probably on the basis of his prior history of laryngeal cancer, now presents with recurrent fever which has been intermittent since April and at times associated with episodes of transient hemoptysis. His chest x-ray does not show any evidence of infiltrate and currently he appears stable. RECOMMENDATIONS: At this point it seems reasonable to observe him off of antibiotics as cultures of blood and urine have been obtained and are currently pending. Would obtain an ESR and CRP. Lastly CT imaging of the abdomen and pelvis for completeness to make sure no other source of fever of unknown origin such as neoplasm present. Will obtain full report on bronchoscopy once available. BrayanERON Gold. ALDEN WHALEY M.D. [id number]
--- NOTE | 2017-06-28 08:50 | EKG ---
Test Reason : Blood Pressure : / mmHG Vent. Rate : 089 BPM Atrial Rate : 089 BPM P-R Int : 172 ms QRS Dur : 094 ms QT Int : 354 ms P-R-T Axes : 042 -02 045 degrees QTc Int : 430 ms SINUS RHYTHM WITH PREMATURE ATRIAL COMPLEXES OTHERWISE NORMAL ECG WHEN COMPARED WITH ECG OF 17-JUN-2017 00:59, PREMATURE ATRIAL COMPLEXES ARE NOW PRESENT Confirmed by KEON DOTSON, ASHLEIGH ([id number]) on 06/28/2017 8:49:50 AM Referred By: Confirmed By:ASHLEIGH HERBERT MD
--- NOTE | 2017-06-28 09:38 | CON.PULM ---
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 As per patient's , patient began to experiencing gradual weakness while at home last night, stating she gave him tylenol at 9:30pm and put him back to bed. She reports the patient woke up at midnight last night and began to talk to himself and experience delirious behaviour. Patient's reports taking his temperature which showed 103.7, prompting her to bring him into the ED for further evaluation, patient has been experiencing associated symptoms of general body aches coughing, dizziness, blurred vision and shortness of breath. recent FOB performed 06/26 has been unrevealing thus far. - History Source History Provided By: Patient, Medical Record Limitations to Obtaining History: No Limitations - Past Medical History [employer]: No: Alzheimer's Cardio/Vascular: Yes: HTN, Hyperlipdemia, Other (Autonomic dysfunction with orthostatic hypotension) Pulmonary: Yes: Pneumonia, Other (aspiration) Renal/: Yes: BPH Heme/Onc: Yes: Anemia ENT: Yes: Other (head and neck CA) Endocrine: Yes: Diabetes Mellitus, Hypothyroidism - Alcohol/Substance Use Hx Alcohol Use: No History of Substance Use: reports: None - Smoking History Smoking history: Never smoked Have you smoked in the past 12 months: No - Social History Usual Living Arrangement: With Spouse ADL: Independent 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, 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[id number] History of Recent Travel: No Home Medications - Allergies Allergies/Adverse Reactions: Allergies Allergy/AdvReac Type Severity Reaction Status Date / Time tamsulosin HCl [From Flomax] AdvReac Intermediate dizziness Verified 06/28/17 03 :34 - Home Medications Home Medications: Ambulatory Orders Aspirin [ASA -] 81 mg PO DAILY 10/20/15 Cholecalciferol (Vitamin D3) [Vitamin D3] 2,000 unit PO DAILY 10/20/15 Cyanocobalamin (Vitamin B-12) [Vitamin B-12] 1,000 mcg PO DAILY 10/20/15 Levothyroxine Sodium [Unithroid] 125 mcg PO DAILY 10/20/15 Rosuvastatin Calcium [Crestor] 10 mg PO HS 10/20/15 Amlodipine Besylate [Norvasc -] 5 mg PO DAILY #30 tablet 06/20/17 Cefuroxime Axetil [Ceftin -] 500 mg PO Q12H #10 tablet 06/20/17 Family Disease History - Family Disease History Family Disease History: CA: Father (G-E junction tumor), Mother (lung ca), Sister (breast ca), Other: Brother (goiter surgery) Review of Systems - Review of Systems Constitutional: reports: Fever Eyes: reports: Blurred Vision HENT: denies: Ear Discharge Neck: denies: Lumps Cardiovascular: denies: Edema, Shortness of Breath Respiratory: reports: Cough. denies: Hemoptysis, Wheezing Gastrointestinal: denies: Abdominal Pain Genitourinary: denies: Burning Physical Exam Vital Sings: Vital Signs Temperature 98.0 F 06/28/17 03:30 Pulse Rate 94 H 06/28/17 03:30 Respiratory Rate 22 06/28/17 03:30 Blood Pressure 114/66 06/28/17 03:30 O2 Sat by Pulse Oximetry (%) 92 L 06/28/17 03:30 Constitutional: Yes: Calm Eyes: Yes: EOM Intact HENT: Yes: Normocephalic Neck: Yes: Trachea Midline Cardiovascular: Yes: S1, S2 Respiratory: Yes: Rales (right base) Gastrointestinal: Yes: Normal Bowel Sounds Edema: No Labs: CBC, BMP 06/28/17 03:53 06/28/17 03:29 Imaging - Results Chest X-ray: Report Reviewed, Image Reviewed Problem List - Problems (1) Aspiration into respiratory tract Code(s): T17.908A - UNSP FB IN RESP TRACT, PART UNSP CAUSING OTH INJURY, INIT (2) FUO (fever of unknown origin) Code(s): R50.9 - FEVER, UNSPECIFIED (3) HTN (hypertension) Code(s): I10 - ESSENTIAL (PRIMARY) HYPERTENSION (4) History of throat cancer Code(s): Z85.819 - PRSNL HX OF MALIG NEOPLM OF UNSP SITE LIP,ORAL CAV,& PHARYNX (5) PNA (pneumonia) Code(s): J18.9 - PNEUMONIA, UNSPECIFIED ORGANISM Assessment/Plan Likely repeat aspiration causing fever/cough will monitor off antibiotics for now Obtain ct chest supplemental o2 aspiration precautions dvt/pud proph will follow thank you Haley Iglesias MD
[2017-06-28] MEDS: amLODIPine BESYLATE 5 MG TABLET (FP) PO SCH (10:57)
[2017-06-28] MEDS: ASPIRIN 81 MG CHEWABLE TABLETS PO SCH (10:57)
[2017-06-28] MEDS: CYANOCOBALAMIN 1,000 MCG TABLET (FP) PO SCH (10:57)
[2017-06-28] MEDS: CHOLECALCIFEROL (VITAMIN D3) 1,000 UNIT TABLET (FP) PO SCH (10:57)
[2017-06-28] MEDS: LEVOTHYROXINE NA 125 MCG TABLET (FP) PO SCH (10:57)
[2017-06-28] MEDS: HEPARIN NA (PORCINE) 5,000 UNITS/ML 1ML VIAL SQ SCH ×2 (10:57→21:18)
[2017-06-28 13:12] VITALS: BMI 29.7
--- NOTE | 2017-06-28 17:33 | PN ---
Progress Note, Physician Chief Complaint: CT CHEST SHOWS NEW INFLAMMATORY PROCESS VS GROUNDGLASS DENIES FEVER OR CHILLS - Current Medication List Current Medications: Active Medications Amlodipine Besylate (Norvasc -) 5 mg PO DAILY [facility] Last Admin: 06/28/17 10:57 Dose: 5 mg Aspirin (Asa -) 81 mg PO DAILY [facility] Last Admin: 06/28/17 10:57 Dose: 81 mg Cholecalciferol (Vitamin D3 -) 2,000 unit PO DAILY [facility] Last Admin: 06/28/17 10:57 Dose: 2,000 unit Cyanocobalamin (Vitamin B12 -) 1,000 mcg PO DAILY [facility] Last Admin: 06/28/17 10:57 Dose: 1,000 mcg Heparin Sodium (Porcine) (Heparin -) 5,000 unit SQ BID [facility] Last Admin: 06/28/17 10:57 Dose: 5,000 unit Sodium Chloride (Normal Saline -) 1,000 mls @ 50 mls/hr IV ASDIR [facility] Stop: 06/29/17 06:35 Last Admin: 06/28/17 10:11 Dose: 50 mls/hr Levothyroxine Sodium (Synthroid -) 125 mcg PO DAILY@0700 [facility] Last Admin: 06/28/17 10:57 Dose: 125 mcg Rosuvastatin Calcium (Crestor -) 10 mg PO [facility] - Objective Vital Signs: Vital Signs Temperature 98.5 F 06/28/17 16:15 Pulse Rate 88 06/28/17 16:15 Respiratory Rate 20 06/28/17 16:15 Blood Pressure 153/98 06/28/17 16:15 O2 Sat by Pulse Oximetry (%) 94 L 06/28/17 16:23 Constitutional: Yes: Mild Distress Eyes: Yes: WNL HENT: Yes: WNL Neck: Yes: WNL Cardiovascular: Yes: WNL Respiratory: Yes: On Nasal O2, SOB Gastrointestinal: Yes: WNL Genitourinary: Yes: WNL Musculoskeletal: Yes: WNL Extremities: Yes: WNL Edema: No Peripheral Pulses WNL: Yes Integumentary: Yes: WNL Wound/Incision: Yes: Clean/Dry Neurological: Yes: WNL ...Motor Strength: WNL Psychiatric: Yes: WNL Labs: CBC, BMP 06/28/17 03:53 06/28/17 03:29 INR, PTT INR 1.11 (0.82-1.09) 06/28/17 03:53 Problem List - Problems (1) Hypoxia Code(s): R09.02 - HYPOXEMIA (2) Renal insufficiency Code(s): N28.9 - DISORDER OF KIDNEY AND URETER, UNSPECIFIED (3) Aspiration into respiratory tract Code(s): T17.908A - UNSP FB IN RESP TRACT, PART UNSP CAUSING OTH INJURY, INIT (4) FUO (fever of unknown origin) Code(s): R50.9 - FEVER, UNSPECIFIED (5) HLD (hyperlipidemia) Code(s): E78.5 - HYPERLIPIDEMIA, UNSPECIFIED Qualifiers: Hyperlipidemia type: pure hypercholesterolemia (6) HTN (hypertension) Code(s): I10 - ESSENTIAL (PRIMARY) HYPERTENSION Assessment/Plan NPO FOR NOW MODIFIED BARIUM ORDERED NS IVF MONITOR LABS OOB TO CHAIR
[2017-06-28] MEDS ORDERED: ACETAMINOPHEN 1000 MG/100 ML VIAL (NON FORMULARY) IVPB ONE (21:05)
[2017-06-28] MEDS: ROSUVASTATIN CA 10 MG TABLET (FP) PO SCH (21:18)
[2017-06-29] MEDS: LEVOTHYROXINE NA 125 MCG TABLET (FP) PO SCH (06:15)
[2017-06-29 07:14] LABS: BASO % 0.2 % (0-2.0); EOS % 0.2 % (0-4.5); HEMATOCRIT 37.2 % (35.4-49); HEMOGLOBIN 12.5 GM/dL (11.7-16.9); LYMPH % 3.8 % (8-40); MCH 28.7 pg (25.7-33.7); MCHC 33.5 g/dl (32.0-35.9); MEAN CELL VOLUME 85.6 fl (80-96); MEAN PLT VOLUME 7.8 fl (7.5-11.1); NEUT % 88.8 % (42.8-82.8); PLATELET COUNT 157 K/MM3 (134-434); RBC 4.35 M/mm3 (4.00-5.60); RDW 14.6 % (11.9-15.9); WHITE BLOOD COUNT 7.5 K/mm3 (4.0-10.0)
[2017-06-29 07:30] LABS: ANION GAP 8 (8-16); BLOOD UREA NITROGEN 14 mg/dL (7-18); CALCIUM 8.3 mg/dL (8.5-10.1); CHLORIDE 101 mmol/L (98-107); CO2 28 mmol/L (21-32); CREATININE 0.7 mg/dL (0.7-1.3); GLUCOSE,RANDOM 116 mg/dL (74-106); MAGNESIUM 1.8 mg/dL (1.8-2.4); PHOSPHOROUS 2.7 mg/dL (2.5-4.9); POTASSIUM 3.8 mmol/L (3.5-5.1); SODIUM 137 mmol/L (136-145)
[2017-06-29] MEDS: ASPIRIN 81 MG CHEWABLE TABLETS PO SCH ×2 (10:00→10:56)
[2017-06-29] MEDS: CYANOCOBALAMIN 1,000 MCG TABLET (FP) PO SCH (10:56)
[2017-06-29] MEDS: amLODIPine BESYLATE 5 MG TABLET (FP) PO SCH ×2 (10:56→13:29)
[2017-06-29] MEDS: CHOLECALCIFEROL (VITAMIN D3) 1,000 UNIT TABLET (FP) PO SCH (10:57)
[2017-06-29] MEDS: HEPARIN NA (PORCINE) 5,000 UNITS/ML 1ML VIAL SQ SCH ×2 (10:58→21:22)
--- NOTE | 2017-06-29 11:32 | PN ---
Progress Note (short form) - Note Progress Note: PULMONARY LOW GRADE TEMPS/HEADACHE OVERALL NOT FEELING WELL TMAX 100.0 ANICTERIC RIGHT BASE CRACKLES PERSIST S1S2 BS+ NO EDEMA CT CHEST: RIGHT BASE INFILTRATE LABS/MEDS/NOTES REVIEWED LIKELY REPEATED ASPIRATION WILL HAVE SWALLOW EVAL/MBS DIET MODIFICATION Haley MATTSON MD Problem List - Problems (1) Aspiration into respiratory tract Code(s): T17.908A - UNSP FB IN RESP TRACT, PART UNSP CAUSING OTH INJURY, INIT (2) FUO (fever of unknown origin) Code(s): R50.9 - FEVER, UNSPECIFIED (3) HTN (hypertension) Code(s): I10 - ESSENTIAL (PRIMARY) HYPERTENSION (4) History of throat cancer Code(s): Z85.819 - PRSNL HX OF MALIG NEOPLM OF UNSP SITE LIP,ORAL CAV,& PHARYNX (5) PNA (pneumonia) Code(s): J18.9 - PNEUMONIA, UNSPECIFIED ORGANISM
--- NOTE | 2017-06-29 11:47 | PN ---
Progress Note, Physician Chief Complaint: NPO FOR MODIFIED BARIUM TOMORROW C/O HEADACHE - Current Medication List Current Medications: Active Medications Amlodipine Besylate (Norvasc -) 5 mg PO DAILY [facility] Last Admin: 06/29/17 10:56 Dose: Not Given Aspirin (Asa -) 81 mg PO DAILY [facility] Last Admin: 06/29/17 10:56 Dose: Not Given Cholecalciferol (Vitamin D3 -) 2,000 unit PO DAILY [facility] Last Admin: 06/29/17 10:57 Dose: Not Given Cyanocobalamin (Vitamin B12 -) 1,000 mcg PO DAILY [facility] Last Admin: 06/29/17 10:56 Dose: Not Given Heparin Sodium (Porcine) (Heparin -) 5,000 unit SQ BID [facility] Last Admin: 06/29/17 10:58 Dose: 5,000 unit Levothyroxine Sodium (Synthroid -) 125 mcg PO DAILY@0700 [facility] Last Admin: 06/29/17 06:15 Dose: Not Given Rosuvastatin Calcium (Crestor -) 10 mg PO HS [facility] Last Admin: 06/28/17 21:18 Dose: Not Given - Objective Vital Signs: Vital Signs Temperature 98.9 F 06/29/17 06:14 Pulse Rate 99 H 06/29/17 06:14 Respiratory Rate 20 06/29/17 06:14 Blood Pressure 156/87 06/29/17 06:14 O2 Sat by Pulse Oximetry (%) 94 L 06/29/17 00:00 Constitutional: Yes: Mild Distress Eyes: Yes: WNL HENT: Yes: Other Neck: Yes: WNL Cardiovascular: Yes: WNL Respiratory: Yes: On Nasal O2, Rhonchi Gastrointestinal: Yes: WNL Genitourinary: Yes: WNL Musculoskeletal: Yes: WNL Extremities: Yes: WNL Edema: No Peripheral Pulses WNL: Yes Integumentary: Yes: WNL Wound/Incision: Yes: Clean/Dry Neurological: Yes: WNL ...Motor Strength: WNL Psychiatric: Yes: WNL Labs: CBC, BMP 06/29/17 06:00 06/29/17 06:00 INR, PTT INR 1.11 (0.82-1.09) 06/28/17 03:53 Problem List - Problems (1) Hypoxia Code(s): R09.02 - HYPOXEMIA (2) Renal insufficiency Code(s): N28.9 - DISORDER OF KIDNEY AND URETER, UNSPECIFIED (3) Aspiration into respiratory tract Code(s): T17.908A - UNSP FB IN RESP TRACT, PART UNSP CAUSING OTH INJURY, INIT (4) FUO (fever of unknown origin) Code(s): R50.9 - FEVER, UNSPECIFIED (5) HLD (hyperlipidemia) Code(s): E78.5 - HYPERLIPIDEMIA, UNSPECIFIED Qualifiers: Hyperlipidemia type: pure hypercholesterolemia Qualified Code(s): E78.00 - Pure hypercholesterolemia, unspecified; E78.0 - Pure hypercholesterolemia (6) HTN (hypertension) Code(s): I10 - ESSENTIAL (PRIMARY) HYPERTENSION Assessment/Plan FLONASE/CLARITIN/TYLENOL NASAL HEADACHE NPO EXCEPT MEDS AWAIT SWALLOW EVAL PULM EVAL CT CHEST SHOWS UPPER LOBE INFLAMMATORY CHANGES
[2017-06-29] MEDS: LORATADINE 10 MG TABLET PO SCH (12:00)
[2017-06-29] MEDS: FLUTICASONE PROP 0.05% 16 GM NASAL SPRAY NS SCH (12:00)
[2017-06-29] MEDS: ACETAMINOPHEN 325 MG TABLET (FP) PO PRN (13:32)
[2017-06-29] MEDS: SODIUM CHLORIDE NASAL SPRAY 44 ML BOTTLE NS PRN (13:44)
[2017-06-29] MEDS ORDERED: PT OWN MED DRAWER 7, Y5N ONE (13:59)
[2017-06-29] MEDS: ROSUVASTATIN CA 10 MG TABLET (FP) PO SCH (21:22)
[2017-06-30] MEDS: LEVOTHYROXINE NA 125 MCG TABLET (FP) PO SCH (06:37)
--- NOTE | 2017-06-30 08:39 | PN ---
Progress Note, Physician History of Present Illness: c/o cough congestion - Current Medication List Current Medications: Active Medications Acetaminophen (Tylenol -) 650 mg PO Q6H PRN PRN Reason: PAIN LEVEL 6-10 Last Admin: 06/29/17 13:32 Dose: 650 mg Amlodipine Besylate (Norvasc -) 5 mg PO DAILY [facility] Last Admin: 06/29/17 13:29 Dose: 5 mg Aspirin (Asa -) 81 mg PO DAILY [facility] Last Admin: 06/29/17 10:00 Dose: 81 mg Cholecalciferol (Vitamin D3 -) 2,000 unit PO DAILY [facility] Last Admin: 06/29/17 10:57 Dose: Not Given Cyanocobalamin (Vitamin B12 -) 1,000 mcg PO DAILY [facility] Last Admin: 06/29/17 10:56 Dose: Not Given Fluticasone Propionate (Flonase -) 2 spray NS DAILY [facility] Last Admin: 06/29/17 12:00 Dose: 2 spray Heparin Sodium (Porcine) (Heparin -) 5,000 unit SQ BID [facility] Last Admin: 06/29/17 21:22 Dose: 5,000 unit Levothyroxine Sodium (Synthroid -) 125 mcg PO DAILY@0700 [facility] Last Admin: 06/30/17 06:37 Dose: 125 mcg Loratadine (Claritin -) 10 mg PO DAILY [facility] Last Admin: 06/29/17 12:00 Dose: 10 mg Rosuvastatin Calcium (Crestor -) 10 mg PO HS [facility] Last Admin: 06/29/17 21:22 Dose: 10 mg Sodium Chloride ([place] Nasal [place] -) 2 spray NS BID PRN PRN Reason: NASAL CONGESTION Last Admin: 06/29/17 13:44 Dose: 2 sprays - Objective Vital Signs: Vital Signs Temperature 99.2 F 06/30/17 04:00 Pulse Rate 74 06/30/17 04:00 Respiratory Rate 20 06/30/17 04:00 Blood Pressure 106/63 06/30/17 04:00 O2 Sat by Pulse Oximetry (%) 94 L 06/30/17 00:00 Cardiovascular: Yes: S1, S2 Respiratory: Yes: Diminished, Rales Gastrointestinal: Yes: Normal Bowel Sounds, Soft Labs: CBC, BMP 06/29/17 06:00 06/29/17 06:00 INR, PTT INR 1.11 (0.82-1.09) 06/28/17 03:53 Problem List - Problems (1) Aspiration into respiratory tract Assessment/Plan: swallow eval peg discussed with patient and he agrees will d/w team Code(s): T17.908A - UNSP FB IN RESP TRACT, PART UNSP CAUSING OTH INJURY, INIT (2) Labile essential hypertension Assessment/Plan: same meds Code(s): I10 - ESSENTIAL (PRIMARY) HYPERTENSION (3) Melanoma Assessment/Plan: s/p excision and chemo Code(s): C43.9 - MALIGNANT MELANOMA OF SKIN, UNSPECIFIED (4) PNA (pneumonia) Assessment/Plan: iv abx nebs id and pulm on case Code(s): J18.9 - PNEUMONIA, UNSPECIFIED ORGANISM
[2017-06-30] MEDS ORDERED: PT OWN MED DRAWER 7, Y5N ONE ×2 (09:47→10:40)
[2017-06-30] MEDS: HEPARIN NA (PORCINE) 5,000 UNITS/ML 1ML VIAL SQ SCH ×2 (09:50→21:55)
[2017-06-30] MEDS: ASPIRIN 81 MG CHEWABLE TABLETS PO SCH (09:50)
[2017-06-30] MEDS: FLUTICASONE PROP 0.05% 16 GM NASAL SPRAY NS SCH (09:50)
[2017-06-30] MEDS: LORATADINE 10 MG TABLET PO SCH (09:50)
[2017-06-30] MEDS: amLODIPine BESYLATE 5 MG TABLET (FP) PO SCH (09:51)
--- NOTE | 2017-06-30 10:17 | CONSULT ---
Admitting History and Physical - Primary Care Physician PCP: Yosef Andrade - Admission History of Present Illness: Pt well known to me from recent admission. 72yM with PMH HTN, HLD, hypothyroid, neuropathy, tongue/throat CA with radiation induced damage presented to the ED last admission, coughing for last few weeks,fever noted. Significant dysphagia noted on MBS during last admission with Mild to moderate silent aspiration on thin liquid and on use of nectar thick liquid for liquid washdown technique. Diet was modified and pt and were educated at length regarding compensatory swallowing techniques.Swallowing tx was recommended, however, pt was waiting for call back from [facility]. Per pt and his , he was doing well with diet and strategies, eating well, with less phlegm and without know fevers following discharge. Pt had a bronchoscopy on 06/26, with noted mucous plugs removed. On 06/27, pt had a fever of 103.7. He is congested with cough. No appetite. Pt is NPO except for meds crushed and given in applesauce. MBS ordered. PMD has discussed PEG with pt. 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 Cardiovascular: Yes: HTN, Hyperlipdemia, Other (Autonomic dysfunction with orthostatic hypotension) Pulmonary: Yes: Pneumonia, Other (aspiration) Renal/: Yes: BPH Heme/Onc: Yes: Anemia ENT: Yes: Other (head and neck CA) Endocrine: Yes: Diabetes Mellitus, Hypothyroidism - Smoking History Smoking history: Never smoked Have you smoked in the past 12 months: No - Alcohol/Substance Use Hx Alcohol Use: No History of Substance Use: reports: None - Social History ADL: Independent 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, 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[employer] , 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 History of Recent Travel: No History - Admission Reason For Visit: HYPOXIA RENAL INSUFFICIENCY - Diagnostics X-ray: Report Reviewed CT Scan: Report Reviewed - General Mental Status: Alert and Oriented, Awake and Alert, Able to Follow Commands Attention: Intact Ability to Follow Directions: Excellent Head/Neck Control: WFL (c/o neck pain) - Hearing Hearing: Functional Speech Evaluation - Communication Primary Language: [place] Communication: Yes: Within Normal Limits Oral Expression Ability: Yes: No Impairment - Speech Production Able to Make Needs Known: Yes: WNL Intelligibility: Yes: WNL - Speech Characteristics Voice Loudness: Normal Voice Pitch: Yes: Normal Voice Phonatory-based Quality: Yes: Normal Speech Pattern: Normal Speech Clarity: < 100% Nasal Resonance: Normal Articulation: Yes: Precise - Language/Verbal Expression Able to Respond to Simple Queries: Yes: WNL Able to Communicate Wants and Needs: Yes: WNL Functional Communication Status: Yes: WNL - 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: Yes: WNL Short Term Memory: Yes: WNL - Swallow Evaluation/Bedside Assessment Current Nutritional Intake: NPO Oral Secretions: Yes: WFL Dentition: Yes: Adequate Facial Symmetry at Rest: Symmetrical Facial Symmetry on Retraction: Symmetrical Facial Movement: Controlled Sensation: Normal Against Resistance Opening: Normal Against Resistance Closing: Normal Pucker Lips: Normal Smile: Normal Lingual Movement: Normal, Symmetric Lingual Speed of Movement: Normal Lingual Movement Strgth Against Opposition: Normal Lingual Movement Characteristics: Normal Velopharyngeal Movement: Normal Laryngeal Elevation: Impaired Labial Seal: WFL Chewing: WFL A-P Transit: WFL Recommendations - Speech Evaluation, Impression/Plan Impression: Known to me from previous admission/mbs. Pt was clinically tolerating modified diet, using compensatory swallowing strategies, per , without known fever spikes or phlegm production.Cough/fever onset on 06/27.Was npo 06/25 and little intake on 06/26. PNA, aspiration during Bronch? - Disposition Discharge to: Home with Assist - Dysphagia Impressions/Plan Swallowing Skills: Impaired *Silent aspiration: cannot be R/O at bedside Recommendations: Modified Barium Swallow (to determine functionality of swallow with modified diet/compensatory strategies/indication for PEG.)
--- NOTE | 2017-06-30 10:20 | PN ---
Progress Note, Physician Chief Complaint: ID After I saw him 06/28 he spike fever to 102 degrees which he reports at home [employer]. says has a severe couph Note had had bronchoscopy for hemoptysis Recent antibiotics Couph is prominent now Congested - Current Medication List Current Medications: Active Medications Acetaminophen (Tylenol -) 650 mg PO Q6H PRN PRN Reason: PAIN LEVEL 6-10 Last Admin: 06/29/17 13:32 Dose: 650 mg Albuterol/Ipratropium (Duoneb -) 1 amp NEB RQID [facility] Amlodipine Besylate (Norvasc -) 5 mg PO DAILY [facility] Last Admin: 06/30/17 09:51 Dose: 5 mg Aspirin (Asa -) 81 mg PO DAILY [facility] Last Admin: 06/30/17 09:50 Dose: 81 mg Cholecalciferol (Vitamin D3 -) 2,000 unit PO DAILY [facility] Last Admin: 06/29/17 10:57 Dose: Not Given Cyanocobalamin (Vitamin B12 -) 1,000 mcg PO DAILY [facility] Last Admin: 06/29/17 10:56 Dose: Not Given Fluticasone Propionate (Flonase -) 2 spray NS DAILY [facility] Last Admin: 06/30/17 09:50 Dose: 2 spray Heparin Sodium (Porcine) (Heparin -) 5,000 unit SQ BID [facility] Last Admin: 06/30/17 09:50 Dose: 5,000 unit Levofloxacin (Levaquin 500 Mg Premixed Ivpb -) 500 mg in 100 mls @ 100 mls/hr IVPB ONCE ONE PRN Reason: Protocol Stop: 06/30/17 10:39 Last Admin: 06/30/17 09:49 Dose: 100 mls/hr Levothyroxine Sodium (Synthroid -) 125 mcg PO DAILY@0700 [facility] Last Admin: 06/30/17 06:37 Dose: 125 mcg Loratadine (Claritin -) 10 mg PO DAILY [facility] Last Admin: 06/30/17 09:50 Dose: 10 mg Rosuvastatin Calcium (Crestor -) 10 mg PO HS [facility] Last Admin: 06/29/17 21:22 Dose: 10 mg Sodium Chloride ([place] Nasal [place] -) 2 spray NS BID PRN PRN Reason: NASAL CONGESTION Last Admin: 06/29/17 13:44 Dose: 2 sprays - Objective Vital Signs: Vital Signs Temperature 99.4 F 06/30/17 09:45 Pulse Rate 93 H 06/30/17 09:45 Respiratory Rate 20 06/30/17 09:45 Blood Pressure 156/107 06/30/17 09:45 O2 Sat by Pulse Oximetry (%) 94 L 06/30/17 00:00 Constitutional: Yes: Well Nourished, No Distress Labs: CBC, BMP 06/29/17 06:00 06/29/17 06:00 INR, PTT INR 1.11 (0.82-1.09) 06/28/17 03:53 Problem List - Problems (1) Aspiration into respiratory tract Code(s): T17.908A - UNSP FB IN RESP TRACT, PART UNSP CAUSING OTH INJURY, INIT (2) FUO (fever of unknown origin) Code(s): R50.9 - FEVER, UNSPECIFIED Assessment/Plan Microbiology 06/28/17 06:33 Nasopharyngeal Swab Influenza Types A,B Antigen (THERESA) - Final 06/28/17 06:33 Nasopharyngeal Swab - Final 06/28/17 06:05 Urine - Urine Clean Catch Urine Culture - Final NO GROWTH OBTAINED 06/26/17 14:30 Bronchial Washings - Right Lower Lobe Gram Stain - Final 06/26/17 14:30 Bronchial Washings - Right Lower Lobe Bronchoalveolar Lavage Culture - Final NORMAL RESPIRATORY STEWART 06/26/17 14:30 Bronchial Washings - Right Lower Lobe AFB Smear Concentration - Final 06/28/17 03:53 Blood - Peripheral Venous Blood Culture - Preliminary NO GROWTH OBTAINED AFTER 48 HOURS, INCUBATION TO CONTINUE FOR 3 DAYS. 06/28/17 03:53 Blood - Peripheral Venous Blood Culture - Preliminary NO GROWTH OBTAINED AFTER 48 HOURS, INCUBATION TO CONTINUE FOR 3 DAYS. 06/26/17 14:30 Bronchial Washings - Right Lower Lobe AMBREEN Preparation - Preliminary 06/26/17 14:30 Bronchial Washings - Right Lower Lobe Fungal Culture - Preliminary Assessment Clinically suspect pneumonia ? procedure anesthesia related. Recently got Ceftriaxone and Azithrocycin last admission Treat more broadly now and get sputum c/s Zosyn 4.5grs q 8 H Ivett DOTSON
[2017-06-30] MEDS: ACETAMINOPHEN 325 MG TABLET (FP) PO PRN (11:00)
[2017-06-30] MEDS: ALBUTEROL SO4 2.5/IPRATROPIUM 0.5 INH SOL 3 ML VIAL.NEB. NEB SCH ×3 (11:00→20:44)
[2017-06-30] MEDS ORDERED: DEXTROSE 5%-WATER 100 ML IVPB ONE ×2 (11:49→17:09)
[2017-06-30] MEDS ORDERED: PIPERACILLIN/TAZOBACTAM 4.5 GM VIAL IVPB ONE ×2 (11:49→17:09)
[2017-06-30] MEDS: PIPERACILLIN/TAZOB 4.5 GM 4.5 GM in DEXTROSE 5%-WATER 100 ML IVPB SCH ×2 (11:59→17:20)
--- NOTE | 2017-06-30 14:08 | PN ---
Progress Note, Physician History of Present Illness: PULMONARY ALERT,NO DISTRESS,+ COUGH,- HEMOPTYSIS - Current Medication List Current Medications: Active Medications Acetaminophen (Tylenol -) 650 mg PO Q6H PRN PRN Reason: PAIN LEVEL 6-10 Last Admin: 06/30/17 11:00 Dose: 650 mg Albuterol/Ipratropium (Duoneb -) 1 amp NEB RQID [facility] Last Admin: 06/30/17 11:00 Dose: 1 amp Amlodipine Besylate (Norvasc -) 5 mg PO DAILY [facility] Last Admin: 06/30/17 09:51 Dose: 5 mg Aspirin (Asa -) 81 mg PO DAILY [facility] Last Admin: 06/30/17 09:50 Dose: 81 mg Cholecalciferol (Vitamin D3 -) 2,000 unit PO DAILY [facility] Last Admin: 06/29/17 10:57 Dose: Not Given Cyanocobalamin (Vitamin B12 -) 1,000 mcg PO DAILY [facility] Last Admin: 06/29/17 10:56 Dose: Not Given Fluticasone Propionate (Flonase -) 2 spray NS DAILY [facility] Last Admin: 06/30/17 09:50 Dose: 2 spray Heparin Sodium (Porcine) (Heparin -) 5,000 unit SQ BID [facility] Last Admin: 06/30/17 09:50 Dose: 5,000 unit Piperacillin Sod/Tazobactam (Sod 4.5 gm/ Dextrose) 100 mls @ 200 mls/hr IVPB Q8H-IV LITTLE PRN Reason: Protocol Last Admin: 06/30/17 11:59 Dose: 200 mls/hr Levothyroxine Sodium (Synthroid -) 125 mcg PO DAILY@0700 [facility] Last Admin: 06/30/17 06:37 Dose: 125 mcg Loratadine (Claritin -) 10 mg PO DAILY [facility] Last Admin: 06/30/17 09:50 Dose: 10 mg Rosuvastatin Calcium (Crestor -) 10 mg PO HS [facility] Last Admin: 06/29/17 21:22 Dose: 10 mg Sodium Chloride ([place] Nasal [place] -) 2 spray NS BID PRN PRN Reason: NASAL CONGESTION Last Admin: 06/29/17 13:44 Dose: 2 sprays - Objective Vital Signs: Vital Signs Temperature 99.4 F 06/30/17 09:45 Pulse Rate 93 H 06/30/17 09:45 Respiratory Rate 20 06/30/17 09:45 Blood Pressure 156/107 06/30/17 09:45 O2 Sat by Pulse Oximetry (%) 92 L 06/30/17 08:00 Constitutional: Yes: Well Nourished, Calm Eyes: Yes: WNL HENT: Yes: WNL Neck: Yes: WNL Cardiovascular: Yes: Regular Rate and Rhythm, S1, S2 Respiratory: Yes: Rales (SCATTERED NAKUL CRACKLES) Gastrointestinal: Yes: Normal Bowel Sounds, Soft Extremities: Yes: WNL Edema: No Labs: CBC, BMP 06/29/17 06:00 Assessment/Plan Problem List - Problems (1) Aspiration into respiratory tract Code(s): T17.908A - UNSP FB IN RESP TRACT, PART UNSP CAUSING OTH INJURY, INIT (2) FUO (fever of unknown origin) Code(s): R50.9 - FEVER, UNSPECIFIED (3) HTN (hypertension) Code(s): I10 - ESSENTIAL (PRIMARY) HYPERTENSION (4) History of throat cancer Code(s): Z85.819 - PRSNL HX OF MALIG NEOPLM OF UNSP SITE LIP,ORAL CAV,& PHARYNX (5) PNA (pneumonia) Code(s): J18.9 - PNEUMONIA, UNSPECIFIED ORGANISM RLL Assessment/Plan Likely repeat aspiration causing fever/cough abx as a per id supplemental o2 aspiration precautions dvt/pud proph inhaled bronchodilators DR UMANA
--- NOTE | 2017-06-30 18:02 | CON.GI ---
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 Cardio/Vascular: Yes: HTN, Hyperlipdemia, Other (Autonomic dysfunction with orthostatic hypotension) Pulmonary: Yes: Pneumonia, Other (aspiration) Renal/: Yes: BPH ENT: Yes: Other (head and neck CA) Endocrine: Yes: Diabetes Mellitus, Hypothyroidism - Alcohol/Substance Use Hx Alcohol Use: No History of Substance Use: reports: None - Smoking History Smoking history: Never smoked Have you smoked in the past 12 months: No - Social History Usual Living Arrangement: With Spouse ADL: Independent 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, 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[employer] , [employer] History of Recent Travel: No Home Medications - Allergies Allergies/Adverse Reactions: Allergies Allergy/AdvReac Type Severity Reaction Status Date / Time tamsulosin HCl [From Flomax] AdvReac Intermediate dizziness Verified 06/28/17 03 :34 - Home Medications Home Medications: Ambulatory Orders Aspirin [ASA -] 81 mg PO DAILY 10/20/15 Cholecalciferol (Vitamin D3) [Vitamin D3] 2,000 unit PO DAILY 10/20/15 Cyanocobalamin (Vitamin B-12) [Vitamin B-12] 1,000 mcg PO DAILY 10/20/15 Levothyroxine Sodium [Unithroid] 125 mcg PO DAILY 10/20/15 Rosuvastatin Calcium [Crestor] 10 mg PO HS 10/20/15 Amlodipine Besylate [Norvasc -] 5 mg PO DAILY #30 tablet 06/20/17 Cefuroxime Axetil [Ceftin -] 500 mg PO Q12H #10 tablet 06/20/17 Family Disease History - Family Disease History Family Disease History: CA: Father (G-E junction tumor), Mother (lung ca), Sister (breast ca), Other: Brother (goiter surgery) Physical Exam-GI Vital Signs: Vital Signs Temperature 98.6 F 06/30/17 15:12 Pulse Rate 85 06/30/17 15:12 Respiratory Rate 20 06/30/17 16:00 Blood Pressure 107/68 06/30/17 15:12 O2 Sat by Pulse Oximetry (%) 92 L 06/30/17 16:00 Constitutional: Yes: Well Nourished Eyes: Yes: Conjunctiva Clear HENT: Yes: Atraumatic Neck: Yes: Supple Cardiovascular: Yes: Regular Rate and Rhythm Respiratory: Yes: CTA Bilaterally ...Palpate: Yes: Soft. No: Firm/Rigid, Guarding, Hepatomegaly, Mass, Pulsatile Mass, Splenomegaly, Tenderness Labs: CBC, BMP 06/29/17 06:00 06/29/17 06:00 INR, PTT INR 1.11 (0.82-1.09) 06/28/17 03:53 Problem List - Problems (1) Aspiration into respiratory tract Assessment/Plan: R> for Peg insertion Code(s): T17.908A - UNSP FB IN RESP TRACT, PART UNSP CAUSING OTH INJURY, INIT
[2017-06-30] MEDS: ROSUVASTATIN CA 10 MG TABLET (FP) PO SCH (21:54)
[2017-07-01] MEDS ORDERED: PIPERACILLIN/TAZOBACTAM 4.5 GM VIAL IVPB ONE ×3 (01:16→16:44)
[2017-07-01] MEDS ORDERED: DEXTROSE 5%-WATER 100 ML IVPB ONE ×3 (01:17→16:45)
[2017-07-01] MEDS: PIPERACILLIN/TAZOB 4.5 GM 4.5 GM in DEXTROSE 5%-WATER 100 ML IVPB SCH ×3 (01:28→17:04)
[2017-07-01] MEDS: LEVOTHYROXINE NA 125 MCG TABLET (FP) PO SCH (06:30)
--- NOTE | 2017-07-01 08:01 | PN ---
Progress Note, Physician History of Present Illness: c/o cough--better congestion - Current Medication List Current Medications: Active Medications Acetaminophen (Tylenol -) 650 mg PO Q6H PRN PRN Reason: PAIN LEVEL 6-10 Last Admin: 06/30/17 11:00 Dose: 650 mg Albuterol/Ipratropium (Duoneb -) 1 amp NEB RQID [facility] Last Admin: 06/30/17 20:44 Dose: 1 amp Amlodipine Besylate (Norvasc -) 5 mg PO DAILY [facility] Last Admin: 06/30/17 09:51 Dose: 5 mg Aspirin (Asa -) 81 mg PO DAILY [facility] Last Admin: 06/30/17 09:50 Dose: 81 mg Cholecalciferol (Vitamin D3 -) 2,000 unit PO DAILY [facility] Last Admin: 06/29/17 10:57 Dose: Not Given Cyanocobalamin (Vitamin B12 -) 1,000 mcg PO DAILY [facility] Last Admin: 06/29/17 10:56 Dose: Not Given Fluticasone Propionate (Flonase -) 2 spray NS DAILY [facility] Last Admin: 06/30/17 09:50 Dose: 2 spray Heparin Sodium (Porcine) (Heparin -) 5,000 unit SQ BID [facility] Last Admin: 06/30/17 21:55 Dose: 5,000 unit Piperacillin Sod/Tazobactam (Sod 4.5 gm/ Dextrose) 100 mls @ 200 mls/hr IVPB Q8H-IV LITTLE PRN Reason: Protocol Last Admin: 07/01/17 01:28 Dose: 200 mls/hr Levothyroxine Sodium (Synthroid -) 125 mcg PO DAILY@0700 [facility] Last Admin: 07/01/17 06:30 Dose: 125 mcg Loratadine (Claritin -) 10 mg PO DAILY [facility] Last Admin: 06/30/17 09:50 Dose: 10 mg Rosuvastatin Calcium (Crestor -) 10 mg PO HS [facility] Last Admin: 06/30/17 21:54 Dose: 10 mg Sodium Chloride ([place] Nasal [place] -) 2 spray NS BID PRN PRN Reason: NASAL CONGESTION Last Admin: 06/29/17 13:44 Dose: 2 sprays - Objective Vital Signs: Vital Signs Temperature 98 F 07/01/17 06:45 Pulse Rate 80 07/01/17 06:45 Respiratory Rate 18 04/24/18 06:45 Blood Pressure 110/75 04/24/18 06:45 O2 Sat by Pulse Oximetry (%) 92 L 06/30/17 22:00 Cardiovascular: Yes: S1, S2 Respiratory: Yes: Diminished, Rhonchi Gastrointestinal: Yes: Normal Bowel Sounds, Soft Labs: CBC, BMP 06/29/17 06:00 06/29/17 06:00 INR, PTT INR 1.11 (0.82-1.09) 06/28/17 03:53 Problem List - Problems (1) Aspiration into respiratory tract Assessment/Plan: swallow eval noted--npo peg discussed with patient and he agrees gi on case Code(s): T17.908A - UNSP FB IN RESP TRACT, PART UNSP CAUSING OTH INJURY, INIT (2) Labile essential hypertension Assessment/Plan: same meds Code(s): I10 - ESSENTIAL (PRIMARY) HYPERTENSION (3) Melanoma Assessment/Plan: s/p excision and chemo Code(s): C43.9 - MALIGNANT MELANOMA OF SKIN, UNSPECIFIED (4) PNA (pneumonia) Assessment/Plan: iv abx nebs id and pulm on case cxr Code(s): J18.9 - PNEUMONIA, UNSPECIFIED ORGANISM
[2017-07-01] MEDS: ALBUTEROL SO4 2.5/IPRATROPIUM 0.5 INH SOL 3 ML VIAL.NEB. NEB SCH ×4 (08:45→20:14)
[2017-07-01] MEDS ORDERED: PT OWN MED DRAWER 7, Y5N ONE ×2 (09:45→18:25)
[2017-07-01] MEDS: ASPIRIN 81 MG CHEWABLE TABLETS PO SCH (09:51)
[2017-07-01] MEDS: LORATADINE 10 MG TABLET PO SCH (09:51)
[2017-07-01] MEDS: FLUTICASONE PROP 0.05% 16 GM NASAL SPRAY NS SCH (09:52)
[2017-07-01] MEDS: amLODIPine BESYLATE 5 MG TABLET (FP) PO SCH (09:52)
[2017-07-01] MEDS: HEPARIN NA (PORCINE) 5,000 UNITS/ML 1ML VIAL SQ SCH ×2 (09:52→21:08)
[2017-07-01] MEDS: CYANOCOBALAMIN 1,000 MCG TABLET (FP) PO SCH (09:52)
[2017-07-01] MEDS: CHOLECALCIFEROL (VITAMIN D3) 1,000 UNIT TABLET (FP) PO SCH (09:53)
--- NOTE | 2017-07-01 10:01 | PN ---
Progress Note, M[employer]IPAL [employer] MAGISTRATE - Note Progress Note: MBS/plan for PEG discussed with Dr. Murillo/Nursing/Pt. JT may be indicated to reduce aspiration risk with PEG. Dr. Murillo will discuss this with Sher Margarita. Pt is fearful about eating at this time. TF will provide hydration/ possibly nutrition. It is vital that pt continues to swallow to maintain and rehabilitate swallowing function for saliva and hopefully PO intake. Pt requires intensive swallowing tx upon discharge. Began review with pt :Chin tuck, hold breath, swallow hard twice, cough hard, reswallow. Supraglottic swallow technique Swallowing exercises -Sylvie, effortful swallow, Tongue resistance exercises. Mouthcare 2-3 times daily. Frequent use of hard cough/Expectorate if neccessary/reswallow to protect airway.
--- NOTE | 2017-07-01 10:03 | PN ---
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 Swallowing exercises - Sylvie, Effortful swallow, Tongue resistance exercises. Frequent use of hard cough/Expectorate, if neccessary/reswallow to protect airway. Mouthcare 2-3 times daily.
--- NOTE | 2017-07-01 11:42 | PN ---
Progress Note (short form) - Note Progress Note: Some improvement in congested cough. No CP or SOB. No acute events overnight. Intake & Output 06/28/17 06/29/17 06/30/17 07/01/17 23:59 23:59 23:59 23:59 Intake Total 1190 1000 1100 100 Balance 1190 1000 1100 100 Weight 219 lb 219 lb Last Vital Signs Temp Pulse Resp BP Pulse Ox 97.8 F 84 18 121/86 95 07/01/17 10:00 07/01/17 10:00 07/01/17 10:00 07/01/17 10:00 07/01/17 10:00 Active Medications Acetaminophen (Tylenol -) 650 mg PO Q6H PRN PRN Reason: PAIN LEVEL 6-10 Last Admin: 06/30/17 11:00 Dose: 650 mg Albuterol/Ipratropium (Duoneb -) 1 amp NEB RQID [facility] Last Admin: 06/30/17 20:44 Dose: 1 amp Amlodipine Besylate (Norvasc -) 5 mg PO DAILY [facility] Last Admin: 07/01/17 09:52 Dose: 5 mg Aspirin (Asa -) 81 mg PO DAILY [facility] Last Admin: 07/01/17 09:51 Dose: 81 mg Cholecalciferol (Vitamin D3 -) 2,000 unit PO DAILY [facility] Last Admin: 07/01/17 09:53 Dose: 2,000 unit Cyanocobalamin (Vitamin B12 -) 1,000 mcg PO DAILY [facility] Last Admin: 07/01/17 09:52 Dose: 1,000 mcg Fluticasone Propionate (Flonase -) 2 spray NS DAILY [facility] Last Admin: 07/01/17 09:52 Dose: 2 spray Heparin Sodium (Porcine) (Heparin -) 5,000 unit SQ BID [facility] Last Admin: 07/01/17 09:52 Dose: 5,000 unit Piperacillin Sod/Tazobactam (Sod 4.5 gm/ Dextrose) 100 mls @ 200 mls/hr IVPB Q8H-IV [facility] PRN Reason: Protocol Last Admin: 07/01/17 09:54 Dose: 200 mls/hr Amino Acids (Clinimix -) 1,000 mls @ 84 mls/hr IV Q12H [facility] Levothyroxine Sodium (Synthroid -) 125 mcg PO DAILY@0700 [facility] Last Admin: 07/01/17 06:30 Dose: 125 mcg Loratadine (Claritin -) 10 mg PO DAILY [facility] Last Admin: 07/01/17 09:51 Dose: 10 mg Rosuvastatin Calcium (Crestor -) 10 mg PO HS [facility] Last Admin: 06/30/17 21:54 Dose: 10 mg Sodium Chloride ([place] Nasal [place] -) 2 spray NS BID PRN PRN Reason: NASAL CONGESTION Last Admin: 06/29/17 13:44 Dose: 2 sprays Constitutional: Yes: NAD Eyes: Yes: WNL HENT: Yes: WNL Neck: Yes: WNL Cardiovascular: Yes: Regular Rate and Rhythm, S1, S2 Respiratory: Yes: Scattered basilar rhonchi Gastrointestinal: Yes: Normal Bowel Sounds, Soft Extremities: Yes: WNL Edema: No Labs: Assessment/Plan Problem List - Problems (1) Aspiration into respiratory tract Code(s): T17.908A - UNSP FB IN RESP TRACT, PART UNSP CAUSING OTH INJURY, INIT (2) FUO (fever of unknown origin) Code(s): R50.9 - FEVER, UNSPECIFIED (3) HTN (hypertension) Code(s): I10 - ESSENTIAL (PRIMARY) HYPERTENSION (4) History of throat cancer Code(s): Z85.819 - PRSNL HX OF MALIG NEOPLM OF UNSP SITE LIP,ORAL CAV,& PHARYNX (5) RLL PNA (pneumonia) Code(s): J18.9 - PNEUMONIA, UNSPECIFIED ORGANISM Assessment/Plan Likely repeat aspiration causing fever/cough ABX per ID Supplemental O2 as needed Aspiration precautions VTE prophylaxis BD [place] PRN Dr Powell
[2017-07-01] MEDS: AMINO ACIDS 4.25%/D5W 1,000 ML IV SCH ×2 (13:29→23:50)
--- NOTE | 2017-07-01 15:04 | PN ---
Progress Note, Physician History of Present Illness: Reports mild dyspnea at rest + Cough, congestion No c/o chest pain Temps down - Current Medication List Current Medications: Active Medications Acetaminophen (Tylenol -) 650 mg PO Q6H PRN PRN Reason: PAIN LEVEL 6-10 Last Admin: 06/30/17 11:00 Dose: 650 mg Albuterol/Ipratropium (Duoneb -) 1 amp NEB RQID [facility] Last Admin: 07/01/17 12:30 Dose: 1 amp Amlodipine Besylate (Norvasc -) 5 mg PO DAILY [facility] Last Admin: 07/01/17 09:52 Dose: 5 mg Aspirin (Asa -) 81 mg PO DAILY [facility] Last Admin: 07/01/17 09:51 Dose: 81 mg Cholecalciferol (Vitamin D3 -) 2,000 unit PO DAILY [facility] Last Admin: 07/01/17 09:53 Dose: 2,000 unit Cyanocobalamin (Vitamin B12 -) 1,000 mcg PO DAILY [facility] Last Admin: 07/01/17 09:52 Dose: 1,000 mcg Fluticasone Propionate (Flonase -) 2 spray NS DAILY [facility] Last Admin: 07/01/17 09:52 Dose: 2 spray Heparin Sodium (Porcine) (Heparin -) 5,000 unit SQ BID [facility] Last Admin: 07/01/17 09:52 Dose: 5,000 unit Piperacillin Sod/Tazobactam (Sod 4.5 gm/ Dextrose) 100 mls @ 200 mls/hr IVPB Q8H-IV [facility] PRN Reason: Protocol Last Admin: 07/01/17 09:54 Dose: 200 mls/hr Amino Acids (Clinimix -) 1,000 mls @ 84 mls/hr IV Q12H [facility] Last Admin: 07/01/17 13:29 Dose: 84 mls/hr Levothyroxine Sodium (Synthroid -) 125 mcg PO DAILY@0700 [facility] Last Admin: 07/01/17 06:30 Dose: 125 mcg Loratadine (Claritin -) 10 mg PO DAILY [facility] Last Admin: 07/01/17 09:51 Dose: 10 mg Rosuvastatin Calcium (Crestor -) 10 mg PO HS [facility] Last Admin: 06/30/17 21:54 Dose: 10 mg Sodium Chloride ([place] Nasal [place] -) 2 spray NS BID PRN PRN Reason: NASAL CONGESTION Last Admin: 06/29/17 13:44 Dose: 2 sprays - Objective Vital Signs: Vital Signs Temperature 97.8 F 07/01/17 10:00 Pulse Rate 84 07/01/17 10:00 Respiratory Rate 18 07/01/17 10:00 Blood Pressure 121/86 07/01/17 10:00 O2 Sat by Pulse Oximetry (%) 95 07/01/17 10:00 Constitutional: Yes: No Distress Cardiovascular: Yes: Regular Rate and Rhythm, S1, S2 Respiratory: Yes: Rhonchi, Other (+ bilateral rhonchi) Gastrointestinal: Yes: Normal Bowel Sounds, Soft, Tenderness Edema: LLE: 1+, RLE: 1+ Labs: CBC, BMP 06/29/17 06:00 06/29/17 06:00 INR, PTT INR 1.11 (0.82-1.09) 06/28/17 03:53 Assessment/Plan Pneumonia Fever- improved Continue Doug
[2017-07-01] MEDS: ROSUVASTATIN CA 10 MG TABLET (FP) PO SCH (21:08)
[2017-07-02] MEDS ORDERED: PIPERACILLIN/TAZOBACTAM 4.5 GM VIAL IVPB ONE ×3 (01:05→16:46)
[2017-07-02] MEDS ORDERED: DEXTROSE 5%-WATER 100 ML IVPB ONE ×3 (01:05→16:46)
[2017-07-02] MEDS: PIPERACILLIN/TAZOB 4.5 GM 4.5 GM in DEXTROSE 5%-WATER 100 ML IVPB SCH ×3 (01:10→17:23)
[2017-07-02] MEDS: AMINO ACIDS 4.25%/D5W 1,000 ML IV SCH ×4 (02:48→23:55)
[2017-07-02] MEDS: LEVOTHYROXINE NA 125 MCG TABLET (FP) PO SCH (06:39)
--- NOTE | 2017-07-02 07:46 | PN ---
Progress Note, Physician History of Present Illness: c/o cough--better congestion - Current Medication List Current Medications: Active Medications Acetaminophen (Tylenol -) 650 mg PO Q6H PRN PRN Reason: PAIN LEVEL 6-10 Last Admin: 06/30/17 11:00 Dose: 650 mg Albuterol/Ipratropium (Duoneb -) 1 amp NEB RQID [facility] Last Admin: 07/01/17 20:14 Dose: 1 amp Amlodipine Besylate (Norvasc -) 5 mg PO DAILY [facility] Last Admin: 07/01/17 09:52 Dose: 5 mg Aspirin (Asa -) 81 mg PO DAILY [facility] Last Admin: 07/01/17 09:51 Dose: 81 mg Cholecalciferol (Vitamin D3 -) 2,000 unit PO DAILY [facility] Last Admin: 07/01/17 09:53 Dose: 2,000 unit Cyanocobalamin (Vitamin B12 -) 1,000 mcg PO DAILY [facility] Last Admin: 07/01/17 09:52 Dose: 1,000 mcg Fluticasone Propionate (Flonase -) 2 spray NS DAILY [facility] Last Admin: 07/01/17 09:52 Dose: 2 spray Heparin Sodium (Porcine) (Heparin -) 5,000 unit SQ BID [facility] Last Admin: 07/01/17 21:08 Dose: 5,000 unit Piperacillin Sod/Tazobactam (Sod 4.5 gm/ Dextrose) 100 mls @ 200 mls/hr IVPB Q8H-IV [facility] PRN Reason: Protocol Last Admin: 07/02/17 01:10 Dose: 200 mls/hr Amino Acids (Clinimix -) 1,000 mls @ 84 mls/hr IV Q12H [facility] Last Admin: 07/02/17 02:48 Dose: 84 mls/hr Levothyroxine Sodium (Synthroid -) 125 mcg PO DAILY@0700 [facility] Last Admin: 07/02/17 06:39 Dose: 125 mcg Loratadine (Claritin -) 10 mg PO DAILY [facility] Last Admin: 07/01/17 09:51 Dose: 10 mg Rosuvastatin Calcium (Crestor -) 10 mg PO HS [facility] Last Admin: 07/01/17 21:08 Dose: 10 mg Sodium Chloride ([place] Nasal [place] -) 2 spray NS BID PRN PRN Reason: NASAL CONGESTION Last Admin: 06/29/17 13:44 Dose: 2 sprays - Objective Vital Signs: Vital Signs Temperature 97.6 F 07/02/17 06:44 Pulse Rate 79 07/02/17 06:44 Respiratory Rate 18 07/02/17 06:44 Blood Pressure 161/106 07/02/17 06:44 O2 Sat by Pulse Oximetry (%) 96 07/01/17 22:00 Cardiovascular: Yes: Regular Rate and Rhythm Respiratory: Yes: Regular, Rhonchi Gastrointestinal: Yes: Normal Bowel Sounds, Soft Labs: CBC, BMP 06/29/17 06:00 06/29/17 06:00 INR, PTT INR 1.11 (0.82-1.09) 06/28/17 03:53 Problem List - Problems (1) Aspiration into respiratory tract Assessment/Plan: swallow eval noted--npo peg discussed with patient and he agrees gi on case for peg in am if ok with id and pulm Code(s): T17.908A - UNSP FB IN RESP TRACT, PART UNSP CAUSING OTH INJURY, INIT (2) Labile essential hypertension Assessment/Plan: same meds Code(s): I10 - ESSENTIAL (PRIMARY) HYPERTENSION (3) Melanoma Assessment/Plan: s/p excision and chemo Code(s): C43.9 - MALIGNANT MELANOMA OF SKIN, UNSPECIFIED (4) PNA (pneumonia) Assessment/Plan: iv abx nebs id and pulm on case cxr improved Code(s): J18.9 - PNEUMONIA, UNSPECIFIED ORGANISM
[2017-07-02] MEDS ORDERED: PT OWN MED DRAWER 7, Y5N ONE (07:58)
[2017-07-02] MEDS: ALBUTEROL SO4 2.5/IPRATROPIUM 0.5 INH SOL 3 ML VIAL.NEB. NEB SCH ×4 (08:17→21:06)
[2017-07-02] MEDS: ASPIRIN 81 MG CHEWABLE TABLETS PO SCH (09:46)
[2017-07-02] MEDS: HEPARIN NA (PORCINE) 5,000 UNITS/ML 1ML VIAL SQ SCH ×2 (09:46→21:37)
[2017-07-02] MEDS: amLODIPine BESYLATE 5 MG TABLET (FP) PO SCH (09:46)
[2017-07-02] MEDS: CHOLECALCIFEROL (VITAMIN D3) 1,000 UNIT TABLET (FP) PO SCH (09:46)
[2017-07-02] MEDS: CYANOCOBALAMIN 1,000 MCG TABLET (FP) PO SCH (09:46)
[2017-07-02] MEDS: LORATADINE 10 MG TABLET PO SCH (09:46)
[2017-07-02] MEDS: FLUTICASONE PROP 0.05% 16 GM NASAL SPRAY NS SCH (09:47)
--- NOTE | 2017-07-02 11:42 | PN ---
Progress Note, [employer] - Note Progress Note: Looks better. Cough, nonproductive thoughout tx session. Educated pt on swallowing technigue. Reviewed video of mbs with pt where tx techniques of super supraglottic swallow -breath hold, effortful swallow, cough. , reswallow eliminated aspiration completely with honey thick liquid. Pt reports bringing up pills in applesauce. Suggest crushing meds, give in 1/3 tsp applesauce, swallow hard a few times, repeatedly, with chin flexed, to improve clearance. Swallowing exercises -Sylvie, effortful swallow, Tongue resistance exercises. Defer Shaker exercise due to neck pain at this time. Mouthcare 2-3 times daily. Frequent use of hard cough/Expectorate if neccessary/ reswallow to protect airway. Reminded pt to please work on calling [facility], if not MAUREEN Zamorano regarding out pt swallowing tx appt, marlyn. PEG planned for tomorrow.
--- NOTE | 2017-07-02 12:09 | PN ---
Progress Note (short form) - Note Progress Note: PULMONARY No further fevers. +nonproductive cough. Sputum growing presumptive pseudomonas. For PEG tomorrow. Last Vital Signs Temp Pulse Resp BP Pulse Ox 97.6 F 79 18 161/106 96 07/02/17 06:44 07/02/17 06:44 07/02/17 06:44 07/02/17 06:44 07/01/17 22:00 Gen: NAD at rest Heart: RRR Lung: decreased breath sounds at the bases Abd: soft, nontender Ext: no edema CBC, BMP 06/29/17 06:00 06/29/17 06:00 Active Medications Acetaminophen (Tylenol -) 650 mg PO Q6H PRN PRN Reason: PAIN LEVEL 6-10 Last Admin: 06/30/17 11:00 Dose: 650 mg Albuterol/Ipratropium (Duoneb -) 1 amp NEB RQID [facility] Last Admin: 07/02/17 08:17 Dose: 1 amp Amlodipine Besylate (Norvasc -) 5 mg PO DAILY [facility] Last Admin: 07/02/17 09:46 Dose: 5 mg Aspirin (Asa -) 81 mg PO DAILY [facility] Last Admin: 07/02/17 09:46 Dose: 81 mg Cholecalciferol (Vitamin D3 -) 2,000 unit PO DAILY [facility] Last Admin: 07/02/17 09:46 Dose: 2,000 unit Cyanocobalamin (Vitamin B12 -) 1,000 mcg PO DAILY [facility] Last Admin: 07/02/17 09:46 Dose: 1,000 mcg Fluticasone Propionate (Flonase -) 2 spray NS DAILY [facility] Last Admin: 07/02/17 09:47 Dose: 2 spray Heparin Sodium (Porcine) (Heparin -) 5,000 unit SQ BID [facility] Last Admin: 07/02/17 09:46 Dose: 5,000 unit Piperacillin Sod/Tazobactam (Sod 4.5 gm/ Dextrose) 100 mls @ 200 mls/hr IVPB Q8H-IV [facility] PRN Reason: Protocol Last Admin: 07/02/17 09:46 Dose: 200 mls/hr Amino Acids (Clinimix -) 1,000 mls @ 84 mls/hr IV Q12H [facility] Last Admin: 07/02/17 12:00 Dose: Not Given Levothyroxine Sodium (Synthroid -) 125 mcg PO DAILY@0700 [facility] Last Admin: 07/02/17 06:39 Dose: 125 mcg Loratadine (Claritin -) 10 mg PO DAILY [facility] Last Admin: 07/02/17 09:46 Dose: 10 mg Rosuvastatin Calcium (Crestor -) 10 mg PO HS [facility] Last Admin: 07/01/17 21:08 Dose: 10 mg Sodium Chloride ([place] Nasal [place] -) 2 spray NS BID PRN PRN Reason: NASAL CONGESTION Last Admin: 06/29/17 13:44 Dose: 2 sprays A/P Pneumonia likely Aspiration h/o Laryngeal Ca HTN Hypercholesterolemia Hypothyroidism - continue antibiotics - f/u cultures - aspiration precautions - inhaled bronchodilators - for PEG placement - DVT prophylaxis
[2017-07-02] MEDS: ROSUVASTATIN CA 10 MG TABLET (FP) PO SCH (21:36)
[2017-07-03] MEDS ORDERED: DEXTROSE 5%-WATER 100 ML IVPB ONE ×3 (00:53→18:04)
[2017-07-03] MEDS ORDERED: PIPERACILLIN/TAZOBACTAM 4.5 GM VIAL IVPB ONE ×3 (00:53→18:04)
[2017-07-03] MEDS: PIPERACILLIN/TAZOB 4.5 GM 4.5 GM in DEXTROSE 5%-WATER 100 ML IVPB SCH ×3 (01:15→18:06)
[2017-07-03] MEDS: LEVOTHYROXINE NA 125 MCG TABLET (FP) PO SCH (06:39)
[2017-07-03] MEDS ORDERED: PROPOFOL 20 ML ONE ×2 (07:28)
[2017-07-03] MEDS: ALBUTEROL SO4 2.5/IPRATROPIUM 0.5 INH SOL 3 ML VIAL.NEB. NEB SCH ×4 (09:05→20:41)
--- NOTE | 2017-07-03 10:01 | PN ---
Progress Note (short form) - Note Progress Note: Still with some congested cough. S/P PEG this AM without incident. Intake & Output 06/30/17 07/01/17 07/02/17 07/03/17 23:59 23:59 23:59 23:59 Intake Total 1100 1386 1040 904 Balance 1100 1386 1040 904 Weight 219 lb Last Vital Signs Temp Pulse Resp BP Pulse Ox 97.5 F L 74 18 145/84 95 07/03/17 08:14 07/03/17 08:51 07/03/17 08:51 07/03/17 08:51 07/03/17 08:51 Active Medications Acetaminophen (Tylenol -) 650 mg PO Q6H PRN PRN Reason: PAIN LEVEL 6-10 Last Admin: 06/30/17 11:00 Dose: 650 mg Albuterol/Ipratropium (Duoneb -) 1 amp NEB RQID [facility] Last Admin: 07/03/17 09:05 Dose: 1 amp Amlodipine Besylate (Norvasc -) 5 mg PO DAILY [facility] Last Admin: 07/02/17 09:46 Dose: 5 mg Aspirin (Asa -) 81 mg PO DAILY [facility] Last Admin: 07/02/17 09:46 Dose: 81 mg Cholecalciferol (Vitamin D3 -) 2,000 unit PO DAILY [facility] Last Admin: 07/02/17 09:46 Dose: 2,000 unit Cyanocobalamin (Vitamin B12 -) 1,000 mcg PO DAILY [facility] Last Admin: 07/02/17 09:46 Dose: 1,000 mcg Fluticasone Propionate (Flonase -) 2 spray NS DAILY [facility] Last Admin: 07/02/17 09:47 Dose: 2 spray Heparin Sodium (Porcine) (Heparin -) 5,000 unit SQ BID [facility] Last Admin: 07/02/17 21:37 Dose: Not Given Piperacillin Sod/Tazobactam (Sod 4.5 gm/ Dextrose) 100 mls @ 200 mls/hr IVPB Q8H-IV [facility] PRN Reason: Protocol Last Admin: 07/03/17 01:15 Dose: 200 mls/hr Amino Acids (Clinimix -) 1,000 mls @ 84 mls/hr IV Q12H [facility] Last Admin: 07/02/17 23:55 Dose: Not Given Levothyroxine Sodium (Synthroid -) 125 mcg PO DAILY@0700 [facility] Last Admin: 07/03/17 06:39 Dose: Not Given Loratadine (Claritin -) 10 mg PO DAILY [facility] Last Admin: 07/02/17 09:46 Dose: 10 mg Rosuvastatin Calcium (Crestor -) 10 mg PO HS [facility] Last Admin: 07/02/17 21:36 Dose: 10 mg Sodium Chloride ([place] Nasal [place] -) 2 spray NS BID PRN PRN Reason: NASAL CONGESTION Last Admin: 06/29/17 13:44 Dose: 2 sprays Constitutional: Yes: NAD Eyes: Yes: WNL HENT: Yes: WNL Neck: Yes: WNL Cardiovascular: Yes: Regular Rate and Rhythm, S1, S2 Respiratory: Yes: Scattered basilar rhonchi Gastrointestinal: Yes: Normal Bowel Sounds, Soft Extremities: Yes: WNL Edema: No Labs: Assessment/Plan Problem List - Problems (1) Aspiration into respiratory tract Code(s): T17.908A - UNSP FB IN RESP TRACT, PART UNSP CAUSING OTH INJURY, INIT (2) FUO (fever of unknown origin) Code(s): R50.9 - FEVER, UNSPECIFIED (3) HTN (hypertension) Code(s): I10 - ESSENTIAL (PRIMARY) HYPERTENSION (4) History of throat cancer Code(s): Z85.819 - PRSNL HX OF MALIG NEOPLM OF UNSP SITE LIP,ORAL CAV,& PHARYNX (5) RLL PNA (pneumonia) Code(s): J18.9 - PNEUMONIA, UNSPECIFIED ORGANISM Assessment/Plan Repeated aspiration causing fever/cough ABX per ID Supplemental O2 as needed Aspiration precautions VTE prophylaxis BD TX PRN PEG feeds Dr Powell
[2017-07-03] MEDS: amLODIPine BESYLATE 5 MG TABLET (FP) PO SCH (10:48)
[2017-07-03] MEDS: CYANOCOBALAMIN 1,000 MCG TABLET (FP) PO SCH (10:48)
[2017-07-03] MEDS: HEPARIN NA (PORCINE) 5,000 UNITS/ML 1ML VIAL SQ SCH ×2 (10:48→21:05)
[2017-07-03] MEDS: CHOLECALCIFEROL (VITAMIN D3) 1,000 UNIT TABLET (FP) PO SCH (10:48)
[2017-07-03] MEDS: ASPIRIN 81 MG CHEWABLE TABLETS PO SCH (10:48)
[2017-07-03] MEDS: LORATADINE 10 MG TABLET PO SCH (10:49)
[2017-07-03] MEDS: FLUTICASONE PROP 0.05% 16 GM NASAL SPRAY NS SCH (10:50)
[2017-07-03] MEDS: SODIUM CHLORIDE NASAL SPRAY 44 ML BOTTLE NS PRN (10:50)
[2017-07-03] MEDS: AMINO ACIDS 4.25%/D5W 1,000 ML IV SCH (10:53)
--- NOTE | 2017-07-03 11:11 | PN ---
Progress Note, Physician Chief Complaint: patient seen and examined s/p PEG placement patient had episode of while walking back from bathroom suddenly felt jittery and as if his legs giving way adn his helped him BP at that time and bgm was normal and his was alert oriented with no loss of consciousness - Current Medication List Current Medications: Active Medications Acetaminophen (Tylenol -) 650 mg PO Q6H PRN PRN Reason: PAIN LEVEL 6-10 Last Admin: 06/30/17 11:00 Dose: 650 mg Albuterol/Ipratropium (Duoneb -) 1 amp NEB RQID [facility] Last Admin: 07/03/17 09:05 Dose: 1 amp Amlodipine Besylate (Norvasc -) 5 mg PO DAILY [facility] Last Admin: 07/03/17 10:48 Dose: 5 mg Aspirin (Asa -) 81 mg PO DAILY [facility] Last Admin: 07/03/17 10:48 Dose: 81 mg Cholecalciferol (Vitamin D3 -) 2,000 unit PO DAILY [facility] Last Admin: 07/03/17 10:48 Dose: 2,000 unit Cyanocobalamin (Vitamin B12 -) 1,000 mcg PO DAILY [facility] Last Admin: 07/03/17 10:48 Dose: 1,000 mcg Fluticasone Propionate (Flonase -) 2 spray NS DAILY [facility] Last Admin: 07/03/17 10:50 Dose: 2 spray Heparin Sodium (Porcine) (Heparin -) 5,000 unit SQ BID [facility] Last Admin: 07/03/17 10:48 Dose: 5,000 unit Piperacillin Sod/Tazobactam (Sod 4.5 gm/ Dextrose) 100 mls @ 200 mls/hr IVPB Q8H-IV [facility] PRN Reason: Protocol Last Admin: 07/03/17 10:49 Dose: 200 mls/hr Amino Acids (Clinimix -) 1,000 mls @ 84 mls/hr IV Q12H [facility] Last Admin: 07/03/17 10:53 Dose: 84 mls/hr Levothyroxine Sodium (Synthroid -) 125 mcg PO DAILY@0700 [facility] Last Admin: 07/03/17 06:39 Dose: Not Given Loratadine (Claritin -) 10 mg PO DAILY [facility] Last Admin: 07/03/17 10:49 Dose: 10 mg Rosuvastatin Calcium (Crestor -) 10 mg PO HS [facility] Last Admin: 07/02/17 21:36 Dose: 10 mg Sodium Chloride ([place] Nasal [place] -) 2 spray NS BID PRN PRN Reason: NASAL CONGESTION Last Admin: 07/03/17 10:50 Dose: 2 sprays - Objective Vital Signs: Vital Signs Temperature 97.5 F L 07/03/17 08:14 Pulse Rate 74 07/03/17 08:51 Respiratory Rate 18 07/03/17 08:51 Blood Pressure 145/84 07/03/17 08:51 O2 Sat by Pulse Oximetry (%) 95 07/03/17 08:51 Constitutional: Yes: Calm Cardiovascular: Yes: Regular Rate and Rhythm, S1, S2 Respiratory: Yes: CTA Bilaterally Gastrointestinal: Yes: Normal Bowel Sounds, Soft, Other (peg) Edema: No Neurological: Yes: Alert, Oriented Labs: CBC, BMP 06/29/17 06:00 06/29/17 06:00 INR, PTT INR 1.11 (0.82-1.09) 06/28/17 03:53 Problem List - Problems (1) Aspiration into respiratory tract Assessment/Plan: pneumonia on iv zosyn s/p peg on tube feeds Code(s): T17.908A - UNSP FB IN RESP TRACT, PART UNSP CAUSING OTH INJURY, INIT (2) HLD (hyperlipidemia) Assessment/Plan: on statin Code(s): E78.5 - HYPERLIPIDEMIA, UNSPECIFIED Qualifiers: Hyperlipidemia type: pure hypercholesterolemia Qualified Code(s): E78.00 - Pure hypercholesterolemia, unspecified; E78.0 - Pure hypercholesterolemia (3) Hypothyroid Assessment/Plan: on synthroid Code(s): E03.9 - HYPOTHYROIDISM, UNSPECIFIED Qualifiers: Hypothyroidism type: unspecified Qualified Code(s): E03.9 - Hypothyroidism , unspecified Assessment/Plan will check orthostatic vitals for 24 hr and terry get carotid doppler to look for stenosis unclear why patient got jittery and unsteady on his feet PT evaluation
--- NOTE | 2017-07-03 12:45 | CON.CARD ---
Consult Consult Specialty:: Cardiology Referred by:: Dr. 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 He is being treated for aspiration PNA, swallow test confirms aspiration, PEG tube was placed, BP remains labile. 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: No: Alzheimer's Cardio/Vascular: Yes: HTN, Hyperlipdemia, Other (Autonomic dysfunction with orthostatic hypotension) Pulmonary: Yes: Pneumonia, Other (aspiration) Renal/: Yes: BPH ENT: Yes: Other (head and neck CA) Endocrine: Yes: Diabetes Mellitus, Hypothyroidism - Alcohol/Substance Use Hx Alcohol Use: No History of Substance Use: reports: None - Smoking History Smoking history: Never smoked Have you smoked in the past 12 months: No - Social History Usual Living Arrangement: With Spouse ADL: Independent 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, 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[employer] , [employer] History of Recent Travel: No Home Medications - Allergies Allergies/Adverse Reactions: Allergies Allergy/AdvReac Type Severity Reaction Status Date / Time tamsulosin HCl [From Flomax] AdvReac Intermediate dizziness Verified 06/28/17 03 :34 - Home Medications Home Medications: Ambulatory Orders Aspirin [ASA -] 81 mg PO DAILY 10/20/15 Cholecalciferol (Vitamin D3) [Vitamin D3] 2,000 unit PO DAILY 10/20/15 Cyanocobalamin (Vitamin B-12) [Vitamin B-12] 1,000 mcg PO DAILY 10/20/15 Levothyroxine Sodium [Unithroid] 125 mcg PO DAILY 10/20/15 Rosuvastatin Calcium [Crestor] 10 mg PO HS 10/20/15 Amlodipine Besylate [Norvasc -] 5 mg PO DAILY #30 tablet 06/20/17 Cefuroxime Axetil [Ceftin -] 500 mg PO Q12H #10 tablet 06/20/17 Family Disease History - Family Disease History Family Disease History: CA: Father (G-E junction tumor), Mother (lung ca), Sister (breast ca), Other: Brother (goiter surgery) Review of Systems - Review of Systems Constitutional: reports: Fever Respiratory: reports: Cough, Hemoptysis Vital Signs: Vital Signs Temperature 97.5 F L 07/03/17 08:14 Pulse Rate 74 07/03/17 08:51 Respiratory Rate 18 07/03/17 08:51 Blood Pressure 145/84 07/03/17 08:51 O2 Sat by Pulse Oximetry (%) 95 07/03/17 08:51 Constitutional: Yes: No Distress, Calm Neck: Yes: Supple Respiratory: Yes: Regular, Diminished, On Nasal O2 Gastrointestinal: Yes: Normal Bowel Sounds, Soft, Other (PEG tube in place) Cardiovascular: Yes: Regular Rate and Rhythm JVD: No Carotid Bruit: No Heart Sounds: Yes: S1, S2 Edema: No - Other Data Labs, Other Data: CBC, BMP 06/29/17 06:00 06/29/17 06:00 INR, PTT INR 1.11 (0.82-1.09) 06/28/17 03:53 SR @ 89 PAC Imaging - Results Chest X-ray: Report Reviewed (Improved aeration) Cat Scan: Report Reviewed (Patchy RLL infiltrates) Problem List - Problems (1) Aspiration into respiratory tract Code(s): T17.908A - UNSP FB IN RESP TRACT, PART UNSP CAUSING OTH INJURY, INIT Qualifiers: Encounter type: initial encounter Qualified Code(s): T17.908A - Unspecified foreign body in respiratory tract, part unspecified causing other injury, initial encounter (2) Autonomic postural hypotension Code(s): I95.1 - ORTHOSTATIC HYPOTENSION (3) HLD (hyperlipidemia) Code(s): E78.5 - HYPERLIPIDEMIA, UNSPECIFIED Qualifiers: Hyperlipidemia type: pure hypercholesterolemia Qualified Code(s): E78.00 - Pure hypercholesterolemia, unspecified; E78.0 - Pure hypercholesterolemia (4) Hemoptysis Code(s): R04.2 - HEMOPTYSIS (5) History of throat cancer Code(s): Z85.819 - PRSNL HX OF MALIG NEOPLM OF UNSP SITE LIP,ORAL CAV,& PHARYNX (6) Hypothyroid Code(s): E03.9 - HYPOTHYROIDISM, UNSPECIFIED Qualifiers: Hypothyroidism type: unspecified Qualified Code(s): E03.9 - Hypothyroidism , unspecified (7) Labile essential hypertension Code(s): I10 - ESSENTIAL (PRIMARY) HYPERTENSION (8) PNA (pneumonia) Code(s): J18.9 - PNEUMONIA, UNSPECIFIED ORGANISM Qualifiers: Pneumonia type: aspiration pneumonia Laterality: right Lung location: lower lobe of lung Assessment/Plan 09/28/2015 Normal LV size and fxn, mild LVH, mild-mod MR, TR, mild [place], AR 10/21/2015 Renovascular ultrasound showed no renal artery stenosis, increased resistive index bilaterally c/w small vessel renal disease 03/19/2016 normal LV systolic function, mild LAD, mild MR, TR, AR and small pericardial effusion Pharmacologic Lexiscan myocardial perfusion imaging study performed January revealed small size infero-basal wall defect compatible with diaphragmatic attenuation with normal left ventricular contraction pattern on LV gated analysis with calculated left ventricular ejection fraction of 67% at rest and 72% post Lexiscan infusion. Echocardiography performed September 28, 2015 revealed concentric left ventricular hypertrophy with overall preserved left ventricular systolic function and calculated left ventricular ejection fraction of 61%, mitral annular calcification, aortic valve leaflet sclerosis, left atrial dilatation measuring 4.2 cm, aortic root sclerosis and dilatation measuring 3.8 cm, mild to moderate mitral and tricuspid valve regurgitation, mild aortic valve regurgitation with calculated RVSP of 51 mmHg consistent with mild to moderate degree of pulmonary hypertension. 1. Aspiration Pneumonia with dysphagia post PEG 2. 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 Non-obstructive CAD, angina pectoris 3. Hyperlipidemia 4. Hypothyroidism 5. Benign prostatic hypertrophy P:1. Continue Norvasc 5 qd as hemodynamics tolerate, continue ASA 81 qd, Crestor 10 qhs 2. Complete abx course, Supplemental O2 as needed 3. Enteral feeds, DVT prophylaxis 4. Thank you for consultative opportunity
--- NOTE | 2017-07-03 14:53 | PN ---
Progress Note, Physician History of Present Illness: Reports occasional cough No c/o chest pain or dyspnea Temps down Sputum c/s Pseudomonas - Current Medication List Current Medications: Active Medications Acetaminophen (Tylenol -) 650 mg PO Q6H PRN PRN Reason: PAIN LEVEL 6-10 Last Admin: 06/30/17 11:00 Dose: 650 mg Albuterol/Ipratropium (Duoneb -) 1 amp NEB RQID [facility] Last Admin: 07/03/17 13:00 Dose: 1 amp Amlodipine Besylate (Norvasc -) 5 mg PO DAILY [facility] Last Admin: 07/03/17 10:48 Dose: 5 mg Aspirin (Asa -) 81 mg PO DAILY [facility] Last Admin: 07/03/17 10:48 Dose: 81 mg Cholecalciferol (Vitamin D3 -) 2,000 unit PO DAILY [facility] Last Admin: 07/03/17 10:48 Dose: 2,000 unit Cyanocobalamin (Vitamin B12 -) 1,000 mcg PO DAILY [facility] Last Admin: 07/03/17 10:48 Dose: 1,000 mcg Fluticasone Propionate (Flonase -) 2 spray NS DAILY [facility] Last Admin: 07/03/17 10:50 Dose: 2 spray Heparin Sodium (Porcine) (Heparin -) 5,000 unit SQ BID [facility] Last Admin: 07/03/17 10:48 Dose: 5,000 unit Piperacillin Sod/Tazobactam (Sod 4.5 gm/ Dextrose) 100 mls @ 200 mls/hr IVPB Q8H-IV [facility] PRN Reason: Protocol Last Admin: 07/03/17 10:49 Dose: 200 mls/hr Levothyroxine Sodium (Synthroid -) 125 mcg PO DAILY@0700 [facility] Last Admin: 07/03/17 06:39 Dose: Not Given Loratadine (Claritin -) 10 mg PO DAILY [facility] Last Admin: 07/03/17 10:49 Dose: 10 mg Rosuvastatin Calcium (Crestor -) 10 mg PO HS [facility] Last Admin: 07/02/17 21:36 Dose: 10 mg Sodium Chloride ([place] Nasal [place] -) 2 spray NS BID PRN PRN Reason: NASAL CONGESTION Last Admin: 07/03/17 10:50 Dose: 2 sprays - Objective Vital Signs: Vital Signs Temperature 97.6 F 07/03/17 10:00 Pulse Rate 87 07/03/17 10:00 Respiratory Rate 18 07/03/17 10:00 Blood Pressure 145/86 07/03/17 10:45 O2 Sat by Pulse Oximetry (%) 99 07/03/17 09:45 Constitutional: Yes: No Distress Eyes: Yes: Conjunctiva Clear Cardiovascular: Yes: Regular Rate and Rhythm, S1, S2 Respiratory: Yes: Rhonchi Gastrointestinal: Yes: Normal Bowel Sounds, Soft. No: Tenderness Labs: CBC, BMP 06/29/17 06:00 06/29/17 06:00 INR, PTT INR 1.11 (0.82-1.09) 06/28/17 03:53 Assessment/Plan Pneumonia Fever- improved Discontinue Zosyn Levaquin 500mg GT qd x 3d
[2017-07-03] MEDS ORDERED: ACETAMINOPHEN 325 MG TABLET (FP) PO PRN (17:52)
[2017-07-03] MEDS ORDERED: SODIUM CHLORIDE NASAL SPRAY 44 ML BOTTLE NS PRN (17:52)
[2017-07-03] MEDS ORDERED: PT OWN MED DRAWER 7, Y5N ONE (18:45)
[2017-07-03] MEDS: ROSUVASTATIN CA 10 MG TABLET (FP) PO SCH (21:05)
[2017-07-04] MEDS ORDERED: DEXTROSE 5%-WATER 100 ML IVPB ONE ×3 (00:11→18:01)
[2017-07-04] MEDS ORDERED: PIPERACILLIN/TAZOBACTAM 4.5 GM VIAL IVPB ONE ×3 (00:11→18:00)
[2017-07-04] MEDS: PIPERACILLIN/TAZOB 4.5 GM 4.5 GM in DEXTROSE 5%-WATER 100 ML IVPB SCH ×3 (01:23→18:07)
[2017-07-04] MEDS: LEVOTHYROXINE NA 125 MCG TABLET (FP) PO SCH (06:11)
--- NOTE | 2017-07-04 08:16 | PN ---
Progress Note, Physician History of Present Illness: cough--better less congestion had a syncopal episode while walking yesterday - Current Medication List Current Medications: Active Medications Acetaminophen (Tylenol -) 650 mg PO Q6H PRN PRN Reason: PAIN LEVEL 6-10 Albuterol/Ipratropium (Duoneb -) 1 amp NEB RQID [facility] Last Admin: 07/03/17 20:41 Dose: 1 amp Amlodipine Besylate (Norvasc -) 5 mg PO DAILY [facility] Aspirin (Asa -) 81 mg PO DAILY [facility] Cholecalciferol (Vitamin D3 -) 2,000 unit PO DAILY [facility] Cyanocobalamin (Vitamin B12 -) 1,000 mcg PO DAILY [facility] Fluticasone Propionate (Flonase -) 2 spray NS DAILY [facility] Heparin Sodium (Porcine) (Heparin -) 5,000 unit SQ BID [facility] Last Admin: 07/03/17 21:05 Dose: 5,000 unit Piperacillin Sod/Tazobactam (Sod 4.5 gm/ Dextrose) 100 mls @ 200 mls/hr IVPB Q8H-IV [facility] PRN Reason: Protocol Last Admin: 07/04/17 01:23 Dose: 200 mls/hr Levothyroxine Sodium (Synthroid -) 125 mcg PO DAILY@0700 [facility] Last Admin: 07/04/17 06:11 Dose: 125 mcg Loratadine (Claritin -) 10 mg PO DAILY [facility] Rosuvastatin Calcium (Crestor -) 10 mg PO HS [facility] Last Admin: 07/03/17 21:05 Dose: 10 mg Sodium Chloride ([place] Nasal [place] -) 2 spray NS BID PRN PRN Reason: NASAL CONGESTION - Objective Vital Signs: Vital Signs Temperature 97.7 F 07/04/17 06:00 Pulse Rate 71 07/04/17 06:00 Respiratory Rate 20 07/04/17 06:00 Blood Pressure 100/58 07/04/17 06:00 O2 Sat by Pulse Oximetry (%) 99 07/03/17 22:00 Cardiovascular: Yes: Murmur, S1, S2 Respiratory: Yes: Regular, CTA Bilaterally Gastrointestinal: Yes: Normal Bowel Sounds, Soft Neurological: Yes: Alert, Oriented Labs: CBC, BMP 06/29/17 06:00 06/29/17 06:00 INR, PTT INR 1.11 (0.82-1.09) 06/28/17 03:53 Problem List - Problems (1) Syncope Assessment/Plan: -echo -ct of head -holter -neuro -labs -ekg -orthostatic bp Code(s): R55 - SYNCOPE AND COLLAPSE Qualifiers: Syncope type: unspecified Qualified Code(s): R55 - Syncope and collapse (2) Aspiration into respiratory tract Assessment/Plan: swallow eval noted--npo peg in place Code(s): T17.908A - UNSP FB IN RESP TRACT, PART UNSP CAUSING OTH INJURY, INIT Qualifiers: Encounter type: initial encounter Qualified Code(s): T17.908A - Unspecified foreign body in respiratory tract, part unspecified causing other injury, initial encounter (3) Labile essential hypertension Assessment/Plan: same meds Code(s): I10 - ESSENTIAL (PRIMARY) HYPERTENSION (4) Melanoma Assessment/Plan: s/p excision and chemo Code(s): C43.9 - MALIGNANT MELANOMA OF SKIN, UNSPECIFIED (5) PNA (pneumonia) Assessment/Plan: iv abx nebs id and pulm on case cxr improved Code(s): J18.9 - PNEUMONIA, UNSPECIFIED ORGANISM Qualifiers: Pneumonia type: aspiration pneumonia Laterality: right Lung location: lower lobe of lung (6) Carotid stenosis Assessment/Plan: -vascular consult Code(s): I65.29 - OCCLUSION AND STENOSIS OF UNSPECIFIED CAROTID ARTERY
[2017-07-04] MEDS: ALBUTEROL SO4 2.5/IPRATROPIUM 0.5 INH SOL 3 ML VIAL.NEB. NEB SCH ×4 (08:30→16:05)
[2017-07-04] MEDS: FLUTICASONE PROP 0.05% 16 GM NASAL SPRAY NS SCH (10:04)
[2017-07-04 10:23] LABS: BASO % 0.2 % (0-2.0); EOS % 2.2 % (0-4.5); HEMATOCRIT 32.7 % (35.4-49); HEMOGLOBIN 11.1 GM/dL (11.7-16.9); LYMPH % 12.5 % (8-40); MCH 28.7 pg (25.7-33.7); MCHC 34.1 g/dl (32.0-35.9); MEAN CELL VOLUME 84.2 fl (80-96); MEAN PLT VOLUME 7.3 fl (7.5-11.1); MONO % 10.3 % (3.8-10.2); NEUT % 74.8 % (42.8-82.8); PLATELET COUNT 190 K/MM3 (134-434); RBC 3.88 M/mm3 (4.00-5.60); RDW 14.5 % (11.9-15.9); WHITE BLOOD COUNT 4.9 K/mm3 (4.0-10.0)
[2017-07-04] MEDS: CHOLECALCIFEROL (VITAMIN D3) 1,000 UNIT TABLET (FP) PO SCH (10:29)
[2017-07-04] MEDS: amLODIPine BESYLATE 5 MG TABLET (FP) PO SCH (10:29)
[2017-07-04] MEDS: CYANOCOBALAMIN 1,000 MCG TABLET (FP) PO SCH (10:29)
[2017-07-04] MEDS: ASPIRIN 81 MG CHEWABLE TABLETS PO SCH (10:29)
[2017-07-04] MEDS: LORATADINE 10 MG TABLET PO SCH (10:29)
[2017-07-04] MEDS: HEPARIN NA (PORCINE) 5,000 UNITS/ML 1ML VIAL SQ SCH ×2 (10:29→21:05)
[2017-07-04 10:44] LABS: ANION GAP 3 (8-16); BILIRUBIN,TOTAL 0.4 mg/dL (0.2-1.0); BLOOD UREA NITROGEN 16 mg/dL (7-18); CALCIUM 8.9 mg/dL (8.5-10.1); CHLORIDE 105 mmol/L (98-107); CO2 32 mmol/L (21-32); CREATININE 0.8 mg/dL (0.7-1.3); GLUCOSE,RANDOM 121 mg/dL (74-106); POTASSIUM 3.3 mmol/L (3.5-5.1); SGOT/AST 25 U/L (15-37); SGPT/ALT 27 U/L (12-78); SODIUM 140 mmol/L (136-145); TOT PROT 6.3 g/dl (6.4-8.2)
[2017-07-04 10:52] LABS: ALK PHOS 56 U/L (45-117)
--- NOTE | 2017-07-04 10:55 | PN ---
Progress Note (short form) - Note Progress Note: PULMONARY "PASSED OUT COMING OUT OF BATHROOM" LESS COUGH AFTER PLACEMENT OF PEG REMAINS ON ABS VSS/AFEBRILE ANICTERIC RIGHT BASE CRACKLES PERSIST S1S2 BS+ NO EDEMA CAROTID STUDY/CARDIO EVAL REVIEWED LABS/MEDS/NOTES REVIEWED CONTINUE CURRENT MANAGEMENT PER PRIMARY TEAM RESPIRATORY STATUS IS STABLE Haley MATTSON MD Problem List - Problems (1) Aspiration into respiratory tract Code(s): T17.908A - UNSP FB IN RESP TRACT, PART UNSP CAUSING OTH INJURY, INIT Qualifiers: Encounter type: initial encounter Qualified Code(s): T17.908A - Unspecified foreign body in respiratory tract, part unspecified causing other injury, initial encounter (2) FUO (fever of unknown origin) Code(s): R50.9 - FEVER, UNSPECIFIED (3) HTN (hypertension) Code(s): I10 - ESSENTIAL (PRIMARY) HYPERTENSION Qualifiers: Hypertension type: essential hypertension Qualified Code(s): I10 - Essential (primary) hypertension (4) History of throat cancer Code(s): Z85.819 - PRSNL HX OF MALIG NEOPLM OF UNSP SITE LIP,ORAL CAV,& PHARYNX (5) PNA (pneumonia) Code(s): J18.9 - PNEUMONIA, UNSPECIFIED ORGANISM Qualifiers: Pneumonia type: aspiration pneumonia Laterality: right Lung location: lower lobe of lung
--- NOTE | 2017-07-04 11:23 | PN ---
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 PEG inserted. Coughing less. Pt will be going to [place] for out pt swallowing therapy. Repeat MBS results faxed. I believe pt has excellent potential to tolerate PO intake with modified diet and use of compensatory strategies. Hopefully pt can be weaned from PEG feedings , or use predominantly for hydration/medication. Selected Entries 07/03/17 07/03/17 07/03/17 06:39 08:14 09:45 Temperature 98.1 F 97.5 F L 97.6 F 07/03/17 07/03/17 07/03/17 10:00 13:50 16:30 Temperature 97.6 F 98.6 F 97.7 F 07/03/17 07/04/17 07/04/17 22:35 01:48 06:00 Temperature 98.6 F 98.1 F 97.7 F Laboratory Tests 07/04/17 10:13 WBC 4.9 D
--- NOTE | 2017-07-04 12:00 | PN ---
Progress Note, Physician History of Present Illness: Episode of syncope in bathroom yesterday without prodromal sxs, BP remains labile. Holter monitor placed. - Current Medication List Current Medications: Active Medications Acetaminophen (Tylenol -) 650 mg PO Q6H PRN PRN Reason: PAIN LEVEL 6-10 Albuterol/Ipratropium (Duoneb -) 1 amp NEB RQID [facility] Last Admin: 07/04/17 11:51 Dose: 1 amp Amlodipine Besylate (Norvasc -) 5 mg PO DAILY [facility] Last Admin: 07/04/17 10:29 Dose: 5 mg Aspirin (Asa -) 81 mg PO DAILY [facility] Last Admin: 07/04/17 10:29 Dose: 81 mg Cholecalciferol (Vitamin D3 -) 2,000 unit PO DAILY [facility] Last Admin: 07/04/17 10:29 Dose: 2,000 unit Cyanocobalamin (Vitamin B12 -) 1,000 mcg PO DAILY [facility] Last Admin: 07/04/17 10:29 Dose: 1,000 mcg Fluticasone Propionate (Flonase -) 2 spray NS DAILY [facility] Heparin Sodium (Porcine) (Heparin -) 5,000 unit SQ BID [facility] Last Admin: 07/04/17 10:29 Dose: 5,000 unit Piperacillin Sod/Tazobactam (Sod 4.5 gm/ Dextrose) 100 mls @ 200 mls/hr IVPB Q8H-IV [facility] PRN Reason: Protocol Last Admin: 07/04/17 10:29 Dose: 200 mls/hr Levothyroxine Sodium (Synthroid -) 125 mcg PO DAILY@0700 [facility] Last Admin: 07/04/17 06:11 Dose: 125 mcg Loratadine (Claritin -) 10 mg PO DAILY [facility] Last Admin: 07/04/17 10:29 Dose: 10 mg Rosuvastatin Calcium (Crestor -) 10 mg PO HS [facility] Last Admin: 07/03/17 21:05 Dose: 10 mg Sodium Chloride ([place] Nasal [place] -) 2 spray NS BID PRN PRN Reason: NASAL CONGESTION - Objective Vital Signs: Vital Signs Temperature 98.9 F 07/04/17 10:00 Pulse Rate 83 07/04/17 10:00 Respiratory Rate 16 07/04/17 10:00 Blood Pressure 155/92 07/04/17 10:00 O2 Sat by Pulse Oximetry (%) 99 07/03/17 22:00 Constitutional: Yes: No Distress, Calm, Thin Neck: Yes: Supple Cardiovascular: Yes: Regular Rate and Rhythm Respiratory: Yes: Regular, CTA Bilaterally Gastrointestinal: Yes: Normal Bowel Sounds, Soft, Other (PEG in place) Edema: No Labs: CBC, BMP 07/04/17 10:13 07/04/17 10:13 INR, PTT INR 1.11 (0.82-1.09) 06/28/17 03:53 Problem List - Problems (1) Aspiration into respiratory tract Code(s): T17.908A - UNSP FB IN RESP TRACT, PART UNSP CAUSING OTH INJURY, INIT Qualifiers: Encounter type: initial encounter Qualified Code(s): T17.908A - Unspecified foreign body in respiratory tract, part unspecified causing other injury, initial encounter (2) Autonomic postural hypotension Code(s): I95.1 - ORTHOSTATIC HYPOTENSION (3) HLD (hyperlipidemia) Code(s): E78.5 - HYPERLIPIDEMIA, UNSPECIFIED Qualifiers: Hyperlipidemia type: pure hypercholesterolemia Qualified Code(s): E78.00 - Pure hypercholesterolemia, unspecified; E78.0 - Pure hypercholesterolemia (4) Hemoptysis Code(s): R04.2 - HEMOPTYSIS (5) History of throat cancer Code(s): Z85.819 - PRSNL HX OF MALIG NEOPLM OF UNSP SITE LIP,ORAL CAV,& PHARYNX (6) Hypothyroid Code(s): E03.9 - HYPOTHYROIDISM, UNSPECIFIED Qualifiers: Hypothyroidism type: unspecified Qualified Code(s): E03.9 - Hypothyroidism , unspecified (7) Labile essential hypertension Code(s): I10 - ESSENTIAL (PRIMARY) HYPERTENSION (8) PNA (pneumonia) Code(s): J18.9 - PNEUMONIA, UNSPECIFIED ORGANISM Qualifiers: Pneumonia type: aspiration pneumonia Laterality: right Lung location: lower lobe of lung Assessment/Plan 09/28/2015 Normal LV size and fxn, mild LVH, mild-mod MR, TR, mild [place], AR 10/21/2015 Renovascular ultrasound showed no renal artery stenosis, increased resistive index bilaterally c/w small vessel renal disease 03/19/2016 normal LV systolic function, mild LAD, mild MR, TR, AR and small pericardial effusion Pharmacologic Lexiscan myocardial perfusion imaging study performed January revealed small size infero-basal wall defect compatible with diaphragmatic attenuation with normal left ventricular contraction pattern on LV gated analysis with calculated left ventricular ejection fraction of 67% at rest and 72% post Lexiscan infusion. Echocardiography performed September 28, 2015 revealed concentric left ventricular hypertrophy with overall preserved left ventricular systolic function and calculated left ventricular ejection fraction of 61%, mitral annular calcification, aortic valve leaflet sclerosis, left atrial dilatation measuring 4.2 cm, aortic root sclerosis and dilatation measuring 3.8 cm, mild to moderate mitral and tricuspid valve regurgitation, mild aortic valve regurgitation with calculated RVSP of 51 mmHg consistent with mild to moderate degree of pulmonary hypertension. 1. Aspiration Pneumonia with dysphagia post PEG 2. 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 Non-obstructive CAD, angina pectoris 3. Hyperlipidemia 4. Hypothyroidism 5. Benign prostatic hypertrophy P:1. Continue Norvasc 5 qd as hemodynamics tolerate, continue ASA 81 qd, Crestor 10 qhs 2. Complete abx course, Supplemental O2 as needed 3. Enteral feeds, DVT prophylaxis 4. F/u holter monitor results
--- NOTE | 2017-07-04 16:52 | PN ---
Progress Note (short form) - Note Progress Note: VAscular surgery Carotid duplex images reviewed. At best <50% stenosis in right carotid. Left carotid is within normal limits. No need for any intervention. Medical management. David meyer DO
--- NOTE | 2017-07-04 18:28 | CONSULT ---
Consult - text type - Consultation Consultation Note: NEUROLOGY CONSULTATION is greatly appreciated: This 72 yo RH man, retired [employer] with h/o HTN, Chol, is s/p Surgery, RT and chemo for oropharyngeal carcinoma [id number]. Complicated by hypothyroidism, dysphagia, peripheral neuropathy and dysautonomia with blood pressure fluctualtions x 4 yrs. Has tried multiple combinations of hyper- and hypotensive meds including midodrine and fluorinef. Most recently on amlodipine and midodrine, both of which he takes on a PRN BASIS , based on multiple (Up to 80) BP determinations daily. BP's still fluctuate widely and quickly Presyncope (lightheadedness and blurred vision) and Syncope (sometimes with minimal or no warning) occur when standing up or with prolonged standing at any time of the day. Now admitted with weakness, fevers (103.7) and pneumonia attributed to aspiration confirmed by modified barium swallow. Now s/p PEG. LIBRADO: Neck supple. No bruits. cor reg. Neuro: MS/speech: Normal CN II-XII: normal Motor: No drift or tremor. normal strength. Near-constant periodic mov 't of the feet and toes. Reduced KJ's. Absent AJ's. Toes downgoing. Coord: No FTN dystaxia Sensory: Reduced vibration over the feet. Romberg +/- Gait: Sl wide-based. IMP: 1. Mild-Moderate Peripheral Neuropathy 2. Dysautonomia (possibly due to RT damage to carotid baroreceptors or to the neuropathy). 3. Dysphagia (more on a mechanical than neurological basis) SUGGEST: Continue midodrine 5 mg BID at breakfast and lunch times with amlodipine Continue to check orthostatic BP's. Consider neuro f/u and trial of treatment with Northera (a new agent for neurogenic orthostatic hypotension) if desired Thank you very much, Mekhi Rodriguez MD
[2017-07-04] MEDS: ROSUVASTATIN CA 10 MG TABLET (FP) PO SCH (21:05)
[2017-07-05] MEDS ORDERED: PIPERACILLIN/TAZOBACTAM 4.5 GM VIAL IVPB ONE (00:07)
[2017-07-05] MEDS ORDERED: DEXTROSE 5%-WATER 100 ML IVPB ONE (00:08)
[2017-07-05] MEDS: PIPERACILLIN/TAZOB 4.5 GM 4.5 GM in DEXTROSE 5%-WATER 100 ML IVPB SCH (02:43)
[2017-07-05] MEDS: LEVOTHYROXINE NA 125 MCG TABLET (FP) PO SCH (06:05)
[2017-07-05] MEDS: ALBUTEROL SO4 2.5/IPRATROPIUM 0.5 INH SOL 3 ML VIAL.NEB. NEB SCH ×4 (07:39→20:50)
[2017-07-05] MEDS ORDERED: POTASSIUM CHLORIDE ORAL LIQUID 20 MEQ/15 ML GT ONE (07:56)
--- NOTE | 2017-07-05 08:52 | PN ---
Progress Note, Physician Chief Complaint: aspiration pneumonia - Current Medication List Current Medications: Active Medications Acetaminophen (Tylenol -) 650 mg PO Q6H PRN PRN Reason: PAIN LEVEL 6-10 Albuterol/Ipratropium (Duoneb -) 1 amp NEB RQID [facility] Last Admin: 07/05/17 07:39 Dose: 1 amp Amino Acids (Prosource No Carb Liquid Pkt) 30 ml PO BID@0800,1730 [facility] Amlodipine Besylate (Norvasc -) 5 mg PO DAILY [facility] Last Admin: 07/04/17 10:29 Dose: 5 mg Aspirin (Asa -) 81 mg PO DAILY [facility] Last Admin: 07/04/17 10:29 Dose: 81 mg Bacitracin (Bacitracin -) 1 applic TP DAILY [facility] Cholecalciferol (Vitamin D3 -) 2,000 unit PO DAILY [facility] Last Admin: 07/04/17 10:29 Dose: 2,000 unit Cyanocobalamin (Vitamin B12 -) 1,000 mcg PO DAILY [facility] Last Admin: 07/04/17 10:29 Dose: 1,000 mcg Fluticasone Propionate (Flonase -) 2 spray NS DAILY [facility] Last Admin: 07/04/17 10:04 Dose: 2 spray Heparin Sodium (Porcine) (Heparin -) 5,000 unit SQ BID [facility] Last Admin: 07/04/17 21:05 Dose: 5,000 unit Levofloxacin (Levaquin -) 500 mg PO DAILY [facility] Levothyroxine Sodium (Synthroid -) 125 mcg PO DAILY@0700 [facility] Last Admin: 07/05/17 06:05 Dose: 125 mcg Loratadine (Claritin -) 10 mg PO DAILY [facility] Last Admin: 07/04/17 10:29 Dose: 10 mg Rosuvastatin Calcium (Crestor -) 10 mg PO HS [facility] Last Admin: 07/04/17 21:05 Dose: 10 mg Sodium Chloride ([place] Nasal [place] -) 2 spray NS BID PRN PRN Reason: NASAL CONGESTION - Objective Vital Signs: Vital Signs Temperature 97.8 F 07/05/17 06:00 Pulse Rate 77 07/05/17 06:00 Respiratory Rate 18 07/05/17 06:00 Blood Pressure 148/82 07/05/17 06:00 O2 Sat by Pulse Oximetry (%) 94 L 07/04/17 22:00 Constitutional: Yes: Well Nourished, No Distress, Calm Cardiovascular: Yes: Regular Rate and Rhythm Respiratory: Yes: Regular Gastrointestinal: Yes: Normal Bowel Sounds, Soft, Other (PEG) Musculoskeletal: Yes: WNL Extremities: Yes: WNL Edema: No Peripheral Pulses WNL: Yes Neurological: Yes: Alert, Oriented Psychiatric: Yes: Alert, Oriented Labs: CBC, BMP 07/04/17 10:13 07/04/17 10:13 INR, PTT INR 1.11 (0.82-1.09) 06/28/17 03:53 Problem List - Problems (1) Aspiration pneumonia Assessment/Plan: -Feeding through PEG -NPO until repeat swallow eval and therapy outpatient -seen by Speech pathology inpatient -ID and pulmonary on board -PO abx Code(s): J69.0 - PNEUMONITIS DUE TO INHALATION OF FOOD AND VOMIT (2) History of throat cancer Code(s): Z85.819 - PRSNL HX OF MALIG NEOPLM OF UNSP SITE LIP,ORAL CAV,& PHARYNX (3) Orthostatic hypotension Assessment/Plan: +orthostatics compression stockings midodrine with amlodipine? Code(s): I95.1 - ORTHOSTATIC HYPOTENSION (4) Hypokalemia Assessment/Plan: -likely 2/2 to decreased po intake -KCl 10 meq x 3 -repeat labs in AM Code(s): E87.6 - HYPOKALEMIA (5) Syncope Assessment/Plan: echo reviewed carotid U/S unremarkable cardiology consult appreciated Code(s): R55 - SYNCOPE AND COLLAPSE Qualifiers: Syncope type: unspecified Qualified Code(s): R55 - Syncope and collapse Assessment/Plan See problem list
[2017-07-05] MEDS: AMINO ACIDS/PROTEIN HYDROLYS 30 ML LIQUID.PKT PO SCH ×2 (09:35→17:56)
[2017-07-05] MEDS: ASPIRIN 81 MG CHEWABLE TABLETS PO SCH (09:35)
[2017-07-05] MEDS: CYANOCOBALAMIN 1,000 MCG TABLET (FP) PO SCH (09:35)
[2017-07-05] MEDS: LORATADINE 10 MG TABLET PO SCH (09:35)
[2017-07-05] MEDS: HEPARIN NA (PORCINE) 5,000 UNITS/ML 1ML VIAL SQ SCH ×2 (09:35→22:00)
[2017-07-05] MEDS: amLODIPine BESYLATE 5 MG TABLET (FP) PO SCH (09:35)
[2017-07-05] MEDS: FLUTICASONE PROP 0.05% 16 GM NASAL SPRAY NS SCH (09:36)
[2017-07-05] MEDS: BACITRACIN 15 GM TUBE TOPICAL OINTMENT TP SCH (09:36)
[2017-07-05] MEDS: CHOLECALCIFEROL (VITAMIN D3) 1,000 UNIT TABLET (FP) PO SCH (09:48)
[2017-07-05 10:38] LABS: BASO % 0.4 % (0-2.0); EOS % 2.7 % (0-4.5); HEMATOCRIT 35.6 % (35.4-49); HEMOGLOBIN 11.9 GM/dL (11.7-16.9); LYMPH % 11.9 % (8-40); MCH 28.5 pg (25.7-33.7); MCHC 33.6 g/dl (32.0-35.9); MEAN CELL VOLUME 84.9 fl (80-96); MEAN PLT VOLUME 7.6 fl (7.5-11.1); MONO % 10.9 % (3.8-10.2); NEUT % 74.1 % (42.8-82.8); PLATELET COUNT 211 K/MM3 (134-434); RBC 4.19 M/mm3 (4.00-5.60); RDW 14.5 % (11.9-15.9); WHITE BLOOD COUNT 4.7 K/mm3 (4.0-10.0)
[2017-07-05 11:02] LABS: ALBUMIN 3.5 g/dl (3.4-5.0); ALK PHOS 57 U/L (45-117); ANION GAP 7 (8-16); BILIRUBIN,TOTAL 0.4 mg/dL (0.2-1.0); BLOOD UREA NITROGEN 16 mg/dL (7-18); CHLORIDE 100 mmol/L (98-107); CO2 35 mmol/L (21-32); CREATININE 0.9 mg/dL (0.7-1.3); GLUCOSE,RANDOM 119 mg/dL (74-106); POTASSIUM 3.7 mmol/L (3.5-5.1); SGOT/AST 34 U/L (15-37); SGPT/ALT 40 U/L (12-78); SODIUM 142 mmol/L (136-145); TOT PROT 6.9 g/dl (6.4-8.2)
--- NOTE | 2017-07-05 11:33 | EKG ---
Test Reason : Blood Pressure : / mmHG Vent. Rate : 080 BPM Atrial Rate : 080 BPM P-R Int : 176 ms QRS Dur : 098 ms QT Int : 388 ms P-R-T Axes : 038 -04 037 degrees QTc Int : 447 ms NORMAL SINUS RHYTHM NORMAL ECG WHEN COMPARED WITH ECG OF 28-JUN-2017 03:21, PREMATURE ATRIAL COMPLEXES ARE NO LONGER PRESENT Confirmed by SHAYLA EATON MD ([id number]) on 07/05/2017 11:33:44 AM Referred By: Confirmed By:SHAYLA EATON MD
--- NOTE | 2017-07-05 12:56 | PN ---
Progress Note (short form) - Note Progress Note: PULMONARY No further fevers. +nonproductive cough but better. Tolerating feeds. Last Vital Signs Temp Pulse Resp BP Pulse Ox 97.6 F 66 18 135/78 100 07/05/17 10:00 07/05/17 10:00 07/05/17 10:00 07/05/17 10:00 07/05/17 10:00 Gen: NAD at rest Heart: RRR Lung: basilar rales Abd: soft, nontender Ext: no edema CBC, BMP 07/05/17 10:17 07/05/17 10:17 Active Medications Acetaminophen (Tylenol -) 650 mg PO Q6H PRN PRN Reason: PAIN LEVEL 6-10 Albuterol/Ipratropium (Duoneb -) 1 amp NEB RQID [facility] Last Admin: 07/05/17 12:10 Dose: 1 amp Amino Acids (Prosource No Carb Liquid Pkt) 30 ml PO BID@0800,1730 [facility] Last Admin: 07/05/17 09:35 Dose: 30 ml Amlodipine Besylate (Norvasc -) 5 mg PO DAILY [facility] Last Admin: 07/05/17 09:35 Dose: 5 mg Aspirin (Asa -) 81 mg PO DAILY [facility] Last Admin: 07/05/17 09:35 Dose: 81 mg Bacitracin (Bacitracin -) 1 applic TP DAILY [facility] Last Admin: 07/05/17 09:36 Dose: 1 applic Cholecalciferol (Vitamin D3 -) 2,000 unit PO DAILY [facility] Last Admin: 07/05/17 09:48 Dose: 2,000 unit Cyanocobalamin (Vitamin B12 -) 1,000 mcg PO DAILY [facility] Last Admin: 07/05/17 09:35 Dose: 1,000 mcg Fluticasone Propionate (Flonase -) 2 spray NS DAILY [facility] Last Admin: 07/05/17 09:36 Dose: 2 spray Heparin Sodium (Porcine) (Heparin -) 5,000 unit SQ BID [facility] Last Admin: 07/05/17 09:35 Dose: 5,000 unit Levofloxacin (Levaquin -) 500 mg PO DAILY [facility] Last Admin: 07/05/17 09:35 Dose: 500 mg Levothyroxine Sodium (Synthroid -) 125 mcg PO DAILY@0700 [facility] Last Admin: 07/05/17 06:05 Dose: 125 mcg Loratadine (Claritin -) 10 mg PO DAILY [facility] Last Admin: 07/05/17 09:35 Dose: 10 mg Rosuvastatin Calcium (Crestor -) 10 mg PO [facility] Last Admin: 07/04/17 21:05 Dose: 10 mg Sodium Chloride ([place] Nasal [place] -) 2 spray NS BID PRN PRN Reason: NASAL CONGESTION A/P Pneumonia likely Aspiration h/o Laryngeal Ca HTN Hypercholesterolemia Hypothyroidism - continue antibiotics - aspiration precautions - inhaled bronchodilators - enteral feeds - DVT prophylaxis
--- NOTE | 2017-07-05 17:08 | PN ---
Progress Note, Physician History of Present Illness: Denies recurrence of syncope, BP remains labile. Holter monitor pending. - Current Medication List Current Medications: Active Medications Acetaminophen (Tylenol -) 650 mg PO Q6H PRN PRN Reason: PAIN LEVEL 6-10 Albuterol/Ipratropium (Duoneb -) 1 amp NEB RQID [facility] Last Admin: 07/05/17 16:34 Dose: 1 amp Amino Acids (Prosource No Carb Liquid Pkt) 30 ml PO BID@0800,1730 [facility] Last Admin: 07/05/17 09:35 Dose: 30 ml Amlodipine Besylate (Norvasc -) 5 mg PO DAILY [facility] Last Admin: 07/05/17 09:35 Dose: 5 mg Aspirin (Asa -) 81 mg PO DAILY [facility] Last Admin: 07/05/17 09:35 Dose: 81 mg Bacitracin (Bacitracin -) 1 applic TP DAILY [facility] Last Admin: 07/05/17 09:36 Dose: 1 applic Cholecalciferol (Vitamin D3 -) 2,000 unit PO DAILY [facility] Last Admin: 07/05/17 09:48 Dose: 2,000 unit Cyanocobalamin (Vitamin B12 -) 1,000 mcg PO DAILY [facility] Last Admin: 07/05/17 09:35 Dose: 1,000 mcg Fluticasone Propionate (Flonase -) 2 spray NS DAILY [facility] Last Admin: 07/05/17 09:36 Dose: 2 spray Heparin Sodium (Porcine) (Heparin -) 5,000 unit SQ BID [facility] Last Admin: 07/05/17 09:35 Dose: 5,000 unit Levofloxacin (Levaquin -) 500 mg PO DAILY [facility] Last Admin: 07/05/17 09:35 Dose: 500 mg Levothyroxine Sodium (Synthroid -) 125 mcg PO DAILY@0700 [facility] Last Admin: 07/05/17 06:05 Dose: 125 mcg Loratadine (Claritin -) 10 mg PO DAILY [facility] Last Admin: 07/05/17 09:35 Dose: 10 mg Rosuvastatin Calcium (Crestor -) 10 mg PO HS [facility] Last Admin: 07/04/17 21:05 Dose: 10 mg Sodium Chloride ([place] Nasal [place] -) 2 spray NS BID PRN PRN Reason: NASAL CONGESTION - Objective Vital Signs: Vital Signs Temperature 98.2 F 07/05/17 14:13 Pulse Rate 86 07/05/17 16:42 Respiratory Rate 16 07/05/17 14:13 Blood Pressure 121/65 07/05/17 16:42 O2 Sat by Pulse Oximetry (%) 100 07/05/17 10:00 Constitutional: Yes: No Distress, Calm Neck: Yes: Supple Cardiovascular: Yes: Regular Rate and Rhythm Respiratory: Yes: Regular, CTA Bilaterally Gastrointestinal: Yes: Normal Bowel Sounds, Soft Edema: No Labs: CBC, BMP 07/05/17 10:17 07/05/17 10:17 INR, PTT INR 1.11 (0.82-1.09) 06/28/17 03:53 Problem List - Problems (1) Aspiration into respiratory tract Code(s): T17.908A - UNSP FB IN RESP TRACT, PART UNSP CAUSING OTH INJURY, INIT Qualifiers: Encounter type: initial encounter Qualified Code(s): T17.908A - Unspecified foreign body in respiratory tract, part unspecified causing other injury, initial encounter (2) Autonomic postural hypotension Code(s): I95.1 - ORTHOSTATIC HYPOTENSION (3) HLD (hyperlipidemia) Code(s): E78.5 - HYPERLIPIDEMIA, UNSPECIFIED Qualifiers: Hyperlipidemia type: pure hypercholesterolemia Qualified Code(s): E78.00 - Pure hypercholesterolemia, unspecified; E78.0 - Pure hypercholesterolemia (4) Hemoptysis Code(s): R04.2 - HEMOPTYSIS (5) History of throat cancer Code(s): Z85.819 - PRSNL HX OF MALIG NEOPLM OF UNSP SITE LIP,ORAL CAV,& PHARYNX (6) Hypothyroid Code(s): E03.9 - HYPOTHYROIDISM, UNSPECIFIED Qualifiers: Hypothyroidism type: unspecified Qualified Code(s): E03.9 - Hypothyroidism , unspecified (7) Labile essential hypertension Code(s): I10 - ESSENTIAL (PRIMARY) HYPERTENSION (8) PNA (pneumonia) Code(s): J18.9 - PNEUMONIA, UNSPECIFIED ORGANISM Qualifiers: Pneumonia type: aspiration pneumonia Laterality: right Lung location: lower lobe of lung Assessment/Plan 07/04/2017 Normal LV size and fxn, EF 55-60%, mild AR 09/28/2015 Normal LV size and fxn, mild LVH, mild-mod MR, TR, mild KS, AR 10/21/2015 Renovascular ultrasound showed no renal artery stenosis, increased resistive index bilaterally c/w small vessel renal disease 03/19/2016 normal LV systolic function, mild LAD, mild MR, TR, AR and small pericardial effusion Pharmacologic Lexiscan myocardial perfusion imaging study performed January revealed small size infero-basal wall defect compatible with diaphragmatic attenuation with normal left ventricular contraction pattern on LV gated analysis with calculated left ventricular ejection fraction of 67% at rest and 72% post Lexiscan infusion. Echocardiography performed September 28, 2015 revealed concentric left ventricular hypertrophy with overall preserved left ventricular systolic function and calculated left ventricular ejection fraction of 61%, mitral annular calcification, aortic valve leaflet sclerosis, left atrial dilatation measuring 4.2 cm, aortic root sclerosis and dilatation measuring 3.8 cm, mild to moderate mitral and tricuspid valve regurgitation, mild aortic valve regurgitation with calculated RVSP of 51 mmHg consistent with mild to moderate degree of pulmonary hypertension. 1. Aspiration Pneumonia with dysphagia post PEG 2. 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 Non-obstructive CAD, angina pectoris 3. Hyperlipidemia 4. Hypothyroidism 5. Benign prostatic hypertrophy P:1. Continue Norvasc 5 qd and Midodrine 5 bid prn SBP<90 mmHg (patient uses on as needed basis) as hemodynamics tolerate, continue ASA 81 qd, Crestor 10 qhs 2. Complete abx course, Supplemental O2 as needed 3. Enteral feeds, DVT prophylaxis 4. F/u holter monitor results 5. Trial of treatment with Northera (a new agent for neurogenic orthostatic hypotension)
[2017-07-05] MEDS ORDERED: MIDODRINE HCL 5 MG TABLET PO PRN (17:14)
[2017-07-05] MEDS: ROSUVASTATIN CA 10 MG TABLET (FP) PO SCH (22:00)
[2017-07-06] MEDS: LEVOTHYROXINE NA 125 MCG TABLET (FP) PO SCH (06:28)
[2017-07-06] MEDS: ALBUTEROL SO4 2.5/IPRATROPIUM 0.5 INH SOL 3 ML VIAL.NEB. NEB SCH ×4 (07:53→20:23)
[2017-07-06] MEDS ORDERED: amLODIPine BESYLATE 5 MG TABLET (FP) PO SCH (08:50)
--- NOTE | 2017-07-06 08:58 | PN ---
Progress Note, Physician Chief Complaint: aspiration pneumonia History of Present Illness: NAD, in bed was unable to tolerate continous feeding changed to Bolus feedings- which he will be getting at home Seen by Cardiology for labile BP's - Current Medication List Current Medications: Active Medications Acetaminophen (Tylenol -) 650 mg PO Q6H PRN PRN Reason: PAIN LEVEL 6-10 Albuterol/Ipratropium (Duoneb -) 1 amp NEB RQID [facility] Last Admin: 07/06/17 07:53 Dose: 1 amp Amino Acids (Prosource No Carb Liquid Pkt) 30 ml PO BID@0800,1730 [facility] Last Admin: 07/05/17 17:56 Dose: 30 ml Amlodipine Besylate (Norvasc -) 2.5 mg PO DAILY [facility] Aspirin (Asa -) 81 mg PO DAILY [facility] Last Admin: 07/05/17 09:35 Dose: 81 mg Bacitracin (Bacitracin -) 1 applic TP DAILY [facility] Last Admin: 07/05/17 09:36 Dose: 1 applic Cholecalciferol (Vitamin D3 -) 2,000 unit PO DAILY [facility] Last Admin: 07/05/17 09:48 Dose: 2,000 unit Cyanocobalamin (Vitamin B12 -) 1,000 mcg PO DAILY [facility] Last Admin: 07/05/17 09:35 Dose: 1,000 mcg Fluticasone Propionate (Flonase -) 2 spray NS DAILY [facility] Last Admin: 07/05/17 09:36 Dose: 2 spray Heparin Sodium (Porcine) (Heparin -) 5,000 unit SQ BID [facility] Last Admin: 07/05/17 22:00 Dose: 5,000 unit Levofloxacin (Levaquin -) 500 mg PO DAILY [facility] Last Admin: 07/05/17 09:35 Dose: 500 mg Levothyroxine Sodium (Synthroid -) 125 mcg PO DAILY@0700 [facility] Last Admin: 07/06/17 06:28 Dose: 125 mcg Loratadine (Claritin -) 10 mg PO DAILY [facility] Last Admin: 07/05/17 09:35 Dose: 10 mg Midodrine (Proamatine -) 5 mg PO BID-MID PRN PRN Reason: MAP<65mm Hg OR SBP <90 Rosuvastatin Calcium (Crestor -) 10 mg PO HS [facility] Last Admin: 07/05/17 22:00 Dose: 10 mg Sodium Chloride ([place] Nasal [place] -) 2 spray NS BID PRN PRN Reason: NASAL CONGESTION - Objective Vital Signs: Vital Signs Temperature 98.6 F 07/06/17 06:00 Pulse Rate 73 07/06/17 06:00 Respiratory Rate 20 07/06/17 06:00 Blood Pressure 116/70 07/06/17 06:00 O2 Sat by Pulse Oximetry (%) 100 07/05/17 10:00 Constitutional: Yes: Well Nourished, No Distress, Calm Cardiovascular: Yes: Regular Rate and Rhythm Respiratory: Yes: Regular Gastrointestinal: Yes: Normal Bowel Sounds, Soft, Other (PEG) Musculoskeletal: Yes: Muscle Weakness Extremities: Yes: WNL Edema: No Peripheral Pulses WNL: Yes Neurological: Yes: Alert, Oriented Psychiatric: Yes: Alert, Oriented Labs: CBC, BMP 07/05/17 10:17 07/05/17 10:17 INR, PTT INR 1.11 (0.82-1.09) 06/28/17 03:53 Problem List - Problems (1) Aspiration pneumonia Assessment/Plan: -Feeding through PEG- BOLUS -NPO until repeat swallow eval and therapy outpatient -seen by Speech pathology inpatient -ID and pulmonary on board -PO abx X 3 days Code(s): J69.0 - PNEUMONITIS DUE TO INHALATION OF FOOD AND VOMIT (2) History of throat cancer Code(s): Z85.819 - PRSNL HX OF MALIG NEOPLM OF UNSP SITE LIP,ORAL CAV,& PHARYNX (3) Orthostatic hypotension Assessment/Plan: +orthostatics compression stockings -decrease amlodipine to 2.5 mg po daily, hold for SBP <100 mm Hg -Midodrine BID PRN for SBP below 90 mm Hg Code(s): I95.1 - ORTHOSTATIC HYPOTENSION (4) Hypokalemia Assessment/Plan: -likely 2/2 to decreased po intake -resolved Code(s): E87.6 - HYPOKALEMIA (5) Syncope Assessment/Plan: echo reviewed carotid U/S unremarkable cardiology consult appreciated Code(s): R55 - SYNCOPE AND COLLAPSE Qualifiers: Syncope type: unspecified Qualified Code(s): R55 - Syncope and collapse Assessment/Plan See problem list Physical therapy
[2017-07-06] MEDS: amLODIPine BESYLATE 5 MG TABLET (FP) PO SCH (09:33)
[2017-07-06] MEDS: AMINO ACIDS/PROTEIN HYDROLYS 30 ML LIQUID.PKT PO SCH ×2 (09:33→18:45)
[2017-07-06] MEDS: LORATADINE 10 MG TABLET PO SCH (09:33)
[2017-07-06] MEDS: CYANOCOBALAMIN 1,000 MCG TABLET (FP) PO SCH (09:33)
[2017-07-06] MEDS: ASPIRIN 81 MG CHEWABLE TABLETS PO SCH (09:34)
[2017-07-06] MEDS: CHOLECALCIFEROL (VITAMIN D3) 1,000 UNIT TABLET (FP) PO SCH (09:35)
[2017-07-06] MEDS: HEPARIN NA (PORCINE) 5,000 UNITS/ML 1ML VIAL SQ SCH ×2 (09:35→21:09)
[2017-07-06] MEDS: BACITRACIN 15 GM TUBE TOPICAL OINTMENT TP SCH (09:39)
[2017-07-06] MEDS: FLUTICASONE PROP 0.05% 16 GM NASAL SPRAY NS SCH (09:39)
--- NOTE | 2017-07-06 09:56 | DS ---
Physical Examination Vital Signs: Vital Signs Temperature 98.6 F 07/06/17 06:00 Pulse Rate 73 07/06/17 06:00 Respiratory Rate 20 07/06/17 06:00 Blood Pressure 116/70 07/06/17 06:00 O2 Sat by Pulse Oximetry (%) 100 07/05/17 10:00 Constitutional: Yes: Well Nourished, No Distress, Calm Cardiovascular: Yes: Regular Rate and Rhythm Respiratory: Yes: Regular Gastrointestinal: Yes: Normal Bowel Sounds, Soft, Other (PEG) Musculoskeletal: Yes: Muscle Weakness Extremities: Yes: WNL Edema: No Peripheral Pulses WNL: Yes Neurological: Yes: Alert, Oriented Psychiatric: Yes: Alert, Oriented Labs: CBC, BMP 07/05/17 10:17 07/05/17 10:17 Discharge Summary Reason For Visit: HYPOXIA RENAL INSUFFICIENCY Current Active Problems Aspiration pneumonia (Acute) Carotid stenosis (Acute) Hypokalemia (Acute) Hypoxia (Acute) Orthostatic hypotension (Acute) Renal insufficiency (Acute) Hospital Course: ADMISSION This is a 72 year old male with a past medical history significant for chronic silent aspiration, HTN, HLD, neuropathy who presented to the ED with fever of 103.7 last night. gave pt tylenol around 930pm. No fever upon arrival to ED or since. Recent hospitalization 06/17/17-06/20/17 for fever, found to have silent aspiration. His diet was changed to chopped with nectar thick liquids with improvement in cough. Pt is s/p bronchoscopy on 06/26. Pt also reports desat into 70s on home oximeter. Here sat was in high 80s prior to being placed on oxygen. Pt states that he has had some SOB since bronchoscopy on . Denies CP or change in cough. Pt reports strict compliance with chopped diet with nectar thick liquids. MODIFIED BARIUM SWALLOW: PHARYNGEAL STAGE: The swallow reflex was delayed in onset with stasis in the vallecula and posterior pharyngeal wall with pureed food. There was intermittent trace penetration into the laryngeal vestibule. Patient needed reminders to flex his head and swallow hard twice and cough to protect the airway. With thick liquid there was trace to mild penetration during the swallow , as well as intermittent trace to mild silent aspiration on residue after the swallow without patient awareness. Patient did attempt to perform compensatory strategies that he has been taught previously. However it was inconsistent and unreliable. During the study when I talked him through be compensatory strategies, remind him to hold his breath and swallow hard, cough and re-swallow , airway protection was much improved. Patient had greatest difficulty initiating the second and third swallow upon command. ESOPHAGEAL STAGE: Not visualized IMPRESSION: Patient does silently aspirate intermittently on nectar and honey thick liquid. He is able to eliminate or mostly eliminate aspiration, holding his breath,swallowing hard, coughing and re-swallowing. However, he needs directions do so efficiently and successfully. I believe patient could probably tolerate pureed food using the strategies independently. However , it is questionable if he could do so with the liquids without direction of speech pathology. Greatest issue is that aspiration is silent- He does not feel the aspirate and does not cough reflexively or in a timely manner RECOMMENDATIONS: Patient is considering a PEG insertion to ease po intake. This may be feasible, at least for hydration until swallowing therapy is provided, and use of strategies are more consistent. Patient to have Repeat MBS outpatient. Condition: Stable - Instructions Diet, Activity, Other Instructions: Home: bolus 6 cans Jevity 1.5, 4 feedings: 1.5 can, 1.5 can, 1.5 can, 1.5 can Add 1320 mls water throughout the day; 165 ml before & after each feeding. Referrals: Fern Murillo MD [Primary Care Provider] - Kirstin Guardado MD [Staff Physician] - Disposition: VNS/HOME HEALTH CARE - Home Medications Comprehensive Discharge Medication List: Ambulatory Orders Aspirin [ASA -] 81 mg PO DAILY 10/20/15 Cholecalciferol (Vitamin D3) [Vitamin D3] 2,000 unit PO DAILY 10/20/15 Cyanocobalamin (Vitamin B-12) [Vitamin B-12] 1,000 mcg PO DAILY 10/20/15 Levothyroxine Sodium [Unithroid] 125 mcg PO DAILY 10/20/15 Rosuvastatin Calcium [Crestor] 10 mg PO HS 10/20/15 Amlodipine Besylate [Norvasc -] 5 mg PO DAILY #30 tablet 06/20/17 Cefuroxime Axetil [Ceftin -] 500 mg PO Q12H #10 tablet 06/20/17
--- NOTE | 2017-07-06 10:53 | HOL ---
Hook-up date: 2017-07-04 10:07:00 Duration: 23:41:00 Test Indications: SYNCOPE Medications: 32321 QRS complexes 300 Ventricular ectopics which represent <1 % of total QRS comp. 4305 Supraventricular ectopics which represent 5 % of total QRS comp. * Paced QRS complexs which represent % of total QRS comp. 27 % of Time Classified as Noise VENTRICULAR ECTOPY 299 Isolated 0 Bigeminal Cycles 0 Couplets 0 Runs 0 Beats in Runs * Beats LONGEST at * BPM at :: -- * Beats FASTEST at * BPM at :: -- SUPRAVENTRICULAR ECTOPY 4184 Isolated 47 Couplets 1 Runs 15 Beats in Runs 15 Beats LONGEST at 166 BPM at 18:57:07 2017-07-04 15 Beats FASTEST at 166 BPM at 18:57:07 2017-07-04 HEART RATES 59 MIN at 07:14:08 2017-07-05 77 AVG 105 MAX at 14:40:07 2017-07-04 LONGEST RR 1.296 secs at 07:29:20 2017-07-05 SCANNED BY: KADE 07/05/17 1. Baseline sinus rhythm with avg hr 77 and range 59-105. 2. No significant bradycardia/pauses. 3. Occasional isolated pvcs. 4. Frequent isolated PACs with one atrial run (15 beats). 5. No vt, vf, afib, aflutter. 6. No diary submitted. Confirmed by ANGELITO DOTSON, SHAYLA (2014) on 07/06/2017 10:53:25 AM Referred By: Ermias GOLDBERG Overread By: SHAYLA EATON MD
--- NOTE | 2017-07-06 12:57 | PN ---
Progress Note (short form) - Note Progress Note: PULMONARY +nonproductive cough but better. Tolerating bolus feeds. Desaturated off oxygen. Last Vital Signs Temp Pulse Resp BP Pulse Ox 98.6 F 73 20 116/70 100 07/06/17 06:00 07/06/17 06:00 07/06/17 06:00 07/06/17 06:00 07/05/17 10:00 Gen: NAD at rest Heart: RRR Lung: basilar rales Abd: soft, nontender Ext: no edema CBC, BMP 07/05/17 10:17 07/05/17 10:17 Active Medications Acetaminophen (Tylenol -) 650 mg PO Q6H PRN PRN Reason: PAIN LEVEL 6-10 Albuterol/Ipratropium (Duoneb -) 1 amp NEB RQID [facility] Last Admin: 07/06/17 12:19 Dose: 1 amp Amino Acids (Prosource No Carb Liquid Pkt) 30 ml PO BID@0800,1730 [facility] Last Admin: 07/06/17 09:33 Dose: 30 ml Amlodipine Besylate (Norvasc -) 2.5 mg PO DAILY [facility] Last Admin: 07/06/17 09:33 Dose: 2.5 mg Aspirin (Asa -) 81 mg PO DAILY [facility] Last Admin: 07/06/17 09:34 Dose: 81 mg Bacitracin (Bacitracin -) 1 applic TP DAILY [facility] Last Admin: 07/06/17 09:39 Dose: 1 applic Cholecalciferol (Vitamin D3 -) 2,000 unit PO DAILY [facility] Last Admin: 07/06/17 09:35 Dose: 2,000 unit Cyanocobalamin (Vitamin B12 -) 1,000 mcg PO DAILY [facility] Last Admin: 07/06/17 09:33 Dose: 1,000 mcg Fluticasone Propionate (Flonase -) 2 spray NS DAILY [facility] Last Admin: 07/06/17 09:39 Dose: 2 spray Heparin Sodium (Porcine) (Heparin -) 5,000 unit SQ BID [facility] Last Admin: 07/06/17 09:35 Dose: 5,000 unit Levofloxacin (Levaquin -) 500 mg PO DAILY [facility] Last Admin: 07/06/17 09:35 Dose: 500 mg Levothyroxine Sodium (Synthroid -) 125 mcg PO DAILY@0700 [facility] Last Admin: 07/06/17 06:28 Dose: 125 mcg Loratadine (Claritin -) 10 mg PO DAILY [facility] Last Admin: 07/06/17 09:33 Dose: 10 mg Midodrine (Proamatine -) 5 mg PO BID-MID PRN PRN Reason: MAP<65mm Hg OR SBP <90 Rosuvastatin Calcium (Crestor -) 10 mg PO HS [facility] Last Admin: 07/05/17 22:00 Dose: 10 mg Sodium Chloride ([place] Nasal [place] -) 2 spray NS BID PRN PRN Reason: NASAL CONGESTION A/P Pneumonia likely Aspiration h/o Laryngeal Ca HTN Hypercholesterolemia Hypothyroidism - continue antibiotics - aspiration precautions - inhaled bronchodilators - enteral feeds - DVT prophylaxis - will need to check ambulatory SpO2 on room air to assess for home O2 when ready for discharge
--- NOTE | 2017-07-06 13:30 | PN ---
Progress Note, Physician History of Present Illness: Episode of near syncope with prodrome, resolved after lying down, BP remains labile. Non-productive cough. - Current Medication List Current Medications: Active Medications Acetaminophen (Tylenol -) 650 mg PO Q6H PRN PRN Reason: PAIN LEVEL 6-10 Albuterol/Ipratropium (Duoneb -) 1 amp NEB RQID [facility] Last Admin: 07/06/17 12:19 Dose: 1 amp Amino Acids (Prosource No Carb Liquid Pkt) 30 ml PO BID@0800,1730 [facility] Last Admin: 07/06/17 09:33 Dose: 30 ml Amlodipine Besylate (Norvasc -) 2.5 mg PO DAILY [facility] Last Admin: 07/06/17 09:33 Dose: 2.5 mg Aspirin (Asa -) 81 mg PO DAILY [facility] Last Admin: 07/06/17 09:34 Dose: 81 mg Bacitracin (Bacitracin -) 1 applic TP DAILY [facility] Last Admin: 07/06/17 09:39 Dose: 1 applic Cholecalciferol (Vitamin D3 -) 2,000 unit PO DAILY [facility] Last Admin: 07/06/17 09:35 Dose: 2,000 unit Cyanocobalamin (Vitamin B12 -) 1,000 mcg PO DAILY [facility] Last Admin: 07/06/17 09:33 Dose: 1,000 mcg Fluticasone Propionate (Flonase -) 2 spray NS DAILY [facility] Last Admin: 07/06/17 09:39 Dose: 2 spray Heparin Sodium (Porcine) (Heparin -) 5,000 unit SQ BID [facility] Last Admin: 07/06/17 09:35 Dose: 5,000 unit Levofloxacin (Levaquin -) 500 mg PO DAILY [facility] Last Admin: 07/06/17 09:35 Dose: 500 mg Levothyroxine Sodium (Synthroid -) 125 mcg PO DAILY@0700 [facility] Last Admin: 07/06/17 06:28 Dose: 125 mcg Loratadine (Claritin -) 10 mg PO DAILY [facility] Last Admin: 07/06/17 09:33 Dose: 10 mg Midodrine (Proamatine -) 5 mg PO BID-MID PRN PRN Reason: MAP<65mm Hg OR SBP <90 Rosuvastatin Calcium (Crestor -) 10 mg PO HS [facility] Last Admin: 07/05/17 22:00 Dose: 10 mg Sodium Chloride ([place] Nasal [place] -) 2 spray NS BID PRN PRN Reason: NASAL CONGESTION - Objective Vital Signs: Vital Signs Temperature 97.6 F 07/06/17 11:00 Pulse Rate 78 07/06/17 11:00 Respiratory Rate 18 07/06/17 11:00 Blood Pressure 128/83 07/06/17 11:00 O2 Sat by Pulse Oximetry (%) 100 07/05/17 10:00 Constitutional: Yes: No Distress, Calm, Thin Neck: Yes: Supple Cardiovascular: Yes: Regular Rate and Rhythm Respiratory: Yes: Regular, Diminished, On Nasal O2 Gastrointestinal: Yes: Normal Bowel Sounds, Soft Edema: No Labs: CBC, BMP 07/05/17 10:17 07/05/17 10:17 INR, PTT INR 1.11 (0.82-1.09) 06/28/17 03:53 Problem List - Problems (1) Aspiration into respiratory tract Code(s): T17.908A - UNSP FB IN RESP TRACT, PART UNSP CAUSING OTH INJURY, INIT Qualifiers: Encounter type: initial encounter Qualified Code(s): T17.908A - Unspecified foreign body in respiratory tract, part unspecified causing other injury, initial encounter (2) Autonomic postural hypotension Code(s): I95.1 - ORTHOSTATIC HYPOTENSION (3) HLD (hyperlipidemia) Code(s): E78.5 - HYPERLIPIDEMIA, UNSPECIFIED Qualifiers: Hyperlipidemia type: pure hypercholesterolemia Qualified Code(s): E78.00 - Pure hypercholesterolemia, unspecified; E78.0 - Pure hypercholesterolemia (4) Hemoptysis Code(s): R04.2 - HEMOPTYSIS (5) History of throat cancer Code(s): Z85.819 - PRSNL HX OF MALIG NEOPLM OF UNSP SITE LIP,ORAL CAV,& PHARYNX (6) Hypothyroid Code(s): E03.9 - HYPOTHYROIDISM, UNSPECIFIED Qualifiers: Hypothyroidism type: unspecified Qualified Code(s): E03.9 - Hypothyroidism , unspecified (7) Labile essential hypertension Code(s): I10 - ESSENTIAL (PRIMARY) HYPERTENSION (8) PNA (pneumonia) Code(s): J18.9 - PNEUMONIA, UNSPECIFIED ORGANISM Qualifiers: Pneumonia type: aspiration pneumonia Laterality: right Lung location: lower lobe of lung Assessment/Plan 07/04/2017 Normal LV size and fxn, EF 55-60%, mild AR 09/28/2015 Normal LV size and fxn, mild LVH, mild-mod MR, TR, mild [place], AR 10/21/2015 Renovascular ultrasound showed no renal artery stenosis, increased resistive index bilaterally c/w small vessel renal disease 03/19/2016 normal LV systolic function, mild LAD, mild MR, TR, AR and small pericardial effusion Pharmacologic Lexiscan myocardial perfusion imaging study performed January revealed small size infero-basal wall defect compatible with diaphragmatic attenuation with normal left ventricular contraction pattern on LV gated analysis with calculated left ventricular ejection fraction of 67% at rest and 72% post Lexiscan infusion. Echocardiography performed September 28, 2015 revealed concentric left ventricular hypertrophy with overall preserved left ventricular systolic function and calculated left ventricular ejection fraction of 61%, mitral annular calcification, aortic valve leaflet sclerosis, left atrial dilatation measuring 4.2 cm, aortic root sclerosis and dilatation measuring 3.8 cm, mild to moderate mitral and tricuspid valve regurgitation, mild aortic valve regurgitation with calculated RVSP of 51 mmHg consistent with mild to moderate degree of pulmonary hypertension. 1. Aspiration Pneumonia with dysphagia post PEG 2. 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 Non-obstructive CAD, angina pectoris 3. Hyperlipidemia 4. Hypothyroidism 5. Benign prostatic hypertrophy P:1. Continue Norvasc 2.5 qd and Midodrine 5 bid prn SBP<90 mmHg (patient uses on as needed basis) as hemodynamics tolerate, continue ASA 81 qd, Crestor 10 qhs 2. Complete abx course, Supplemental O2 as needed 3. Enteral feeds, DVT prophylaxis 4. Holter monitor showed NSR, occ PVC, freq PAC, no pauses 5. Trial of treatment with Northera (a new agent for neurogenic orthostatic hypotension) 6. Will need to check ambulatory SpO2 on room air to assess for home O2 when ready for discharge
[2017-07-06] MEDS: ROSUVASTATIN CA 10 MG TABLET (FP) PO SCH (21:09)
[2017-07-07] MEDS: LEVOTHYROXINE NA 125 MCG TABLET (FP) PO SCH (06:07)
[2017-07-07] MEDS: ALBUTEROL SO4 2.5/IPRATROPIUM 0.5 INH SOL 3 ML VIAL.NEB. NEB SCH ×4 (07:10→20:06)
--- NOTE | 2017-07-07 08:32 | DS ---
Physical Examination Vital Signs: Vital Signs Temperature 97.8 F 07/07/17 06:00 Pulse Rate 74 07/07/17 06:00 Respiratory Rate 20 07/07/17 06:00 Blood Pressure 128/78 07/07/17 06:00 O2 Sat by Pulse Oximetry (%) 98 07/06/17 17:31 Cardiovascular: Yes: Regular Rate and Rhythm Respiratory: Yes: Regular, CTA Bilaterally Gastrointestinal: Yes: Normal Bowel Sounds, Soft Neurological: Yes: Alert, Oriented Labs: CBC, BMP 07/05/17 10:17 07/05/17 10:17 Discharge Summary Reason For Visit: HYPOXIA RENAL INSUFFICIENCY Current Active Problems Aspiration pneumonia (Acute) Carotid stenosis (Acute) Hypokalemia (Acute) Hypoxia (Acute) Orthostatic hypotension (Acute) Renal insufficiency (Acute) Hospital Course: Patient is a 72 year old male with a significant past medical history of HTN, HLD, hypothyroid, neuropathy (chemo induced?), 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 damage resulting in wide fluctuations in BP, who presents to the ED with complaints of weakness that began last night while at home. As per patient's , patient began to experiencing gradual weakness while at home last night, stating she gave him tylenol at 9:30pm and put him back to bed. She reports the patient woke up at midnight last night and began to talk to himself and experience delirious behaviour. Patient's reports taking his temperature which showed 103.7, prompting her to bring him into the ED for further evaluation, patient has been experiencing associated symptoms of general body aches coughing, dizziness, blurred vision and shortness of breath. recent FOB performed 06/26 has been unrevealing thus far. 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 Cardio/Vascular: Yes: HTN, Hyperlipdemia, Other (Autonomic dysfunction with orthostatic hypotension) Pulmonary: Yes: Pneumonia, Other (aspiration) Renal/: Yes: BPH Heme/Onc: Yes: Anemia ENT: Yes: Other (head and neck CA) Endocrine: Yes: Diabetes Mellitus, Hypothyroidism - Problems (1) Aspiration pneumonia Assessment/Plan: -Feeding through PEG- BOLUS-will need mcfp(99 months) at this time due to aspiration and to maintain adequate intake-- -NPO until repeat swallow eval and therapy outpatient -seen by Speech pathology inpatient -ID and pulmonary on board -PO abx X 3 days -check pulse ox Code(s): J69.0 - PNEUMONITIS DUE TO INHALATION OF FOOD AND VOMIT (2) History of throat cancer Code(s): Z85.819 - PRSNL HX OF MALIG NEOPLM OF UNSP SITE LIP,ORAL CAV,& PHARYNX (3) Orthostatic hypotension Assessment/Plan: +orthostatics compression stockings -decrease amlodipine to 2.5 mg po daily, hold for SBP <100 mm Hg -Midodrine BID PRN for SBP below 90 mm Hg Code(s): I95.1 - ORTHOSTATIC HYPOTENSION (4) Hypokalemia Assessment/Plan: -likely 2/2 to decreased po intake -resolved Code(s): E87.6 - HYPOKALEMIA (5) Syncope Assessment/Plan: echo reviewed carotid U/S unremarkable cardiology consult appreciated physical therapy Code(s): R55 - SYNCOPE AND COLLAPSE Qualifiers: Syncope type: unspecified Qualified Code(s): R55 - Syncope and collapse Condition: Stable - Instructions Diet, Activity, Other Instructions: Home: bolus 6 cans Jevity 1.5, 4 feedings: 1.5 can, 1.5 can, 1.5 can, 1.5 can Add 1320 mls water throughout the day; 165 ml before & after each feeding. Referrals: Fern Murillo MD [Primary Care Provider] - Kirstin Guardado MD [Staff Physician] - Disposition: VNS/HOME HEALTH CARE - Home Medications Comprehensive Discharge Medication List: Ambulatory Orders Aspirin [ASA -] 81 mg PO DAILY 10/20/15 Cholecalciferol (Vitamin D3) [Vitamin D3] 2,000 unit PO DAILY 10/20/15 Cyanocobalamin (Vitamin B-12) [Vitamin B-12] 1,000 mcg PO DAILY 10/20/15 Levothyroxine Sodium [Unithroid] 125 mcg PO DAILY 10/20/15 Rosuvastatin Calcium [Crestor] 10 mg PO HS 10/20/15 Acetaminophen [Tylenol .Regular Strength -] 650 mg PO Q6H PRN tablet 07/06/17 Amino Acids/Protein Hydrolys [Prosource No Carb Liquid Pkt] 30 ml PO BID@0800, 1730 #1800 ml 07/06/17 Amlodipine Besylate [Norvasc -] 2.5 mg PO DAILY #30 tablet 07/06/17 Bacitracin - [Bacitracin Topical Ointment -] 1 applic TP DAILY #1 tube 07/06/17 Fluticasone Prop 0.05% Nasal [Flonase -] 2 spray NS DAILY #1 inh 07/06/17 Loratadine [Claritin -] 10 mg PO DAILY #30 tablet 07/06/17 Midodrine HCl [Proamatine -] 5 mg PO BID-MID PRN #60 tablet 07/06/17
[2017-07-07] MEDS: HEPARIN NA (PORCINE) 5,000 UNITS/ML 1ML VIAL SQ SCH ×2 (11:02→21:52)
[2017-07-07] MEDS: AMINO ACIDS/PROTEIN HYDROLYS 30 ML LIQUID.PKT PO SCH ×2 (11:02→17:43)
[2017-07-07] MEDS: CYANOCOBALAMIN 1,000 MCG TABLET (FP) PO SCH (11:02)
[2017-07-07] MEDS: LORATADINE 10 MG TABLET PO SCH (11:02)
[2017-07-07] MEDS: amLODIPine BESYLATE 5 MG TABLET (FP) PO SCH (11:03)
[2017-07-07] MEDS: FLUTICASONE PROP 0.05% 16 GM NASAL SPRAY NS SCH (11:03)
[2017-07-07] MEDS: ASPIRIN 81 MG CHEWABLE TABLETS PO SCH (11:03)
[2017-07-07] MEDS: BACITRACIN 15 GM TUBE TOPICAL OINTMENT TP SCH (11:03)
[2017-07-07] MEDS: CHOLECALCIFEROL (VITAMIN D3) 1,000 UNIT TABLET (FP) PO SCH (11:03)
--- NOTE | 2017-07-07 11:21 | PN ---
Progress Note, Physician History of Present Illness: No further episode of near or true syncope with prodrome, BP remains labile. Non -productive cough. - Current Medication List Current Medications: Active Medications Acetaminophen (Tylenol -) 650 mg PO Q6H PRN PRN Reason: PAIN LEVEL 6-10 Albuterol/Ipratropium (Duoneb -) 1 amp NEB RQID [facility] Last Admin: 07/07/17 07:10 Dose: 1 amp Amino Acids (Prosource No Carb Liquid Pkt) 30 ml PO BID@0800,1730 [facility] Last Admin: 07/07/17 11:02 Dose: 30 ml Amlodipine Besylate (Norvasc -) 2.5 mg PO DAILY [facility] Last Admin: 07/07/17 11:03 Dose: 2.5 mg Aspirin (Asa -) 81 mg PO DAILY [facility] Last Admin: 07/07/17 11:03 Dose: 81 mg Bacitracin (Bacitracin -) 1 applic TP DAILY [facility] Last Admin: 07/07/17 11:03 Dose: 1 applic Cholecalciferol (Vitamin D3 -) 2,000 unit PO DAILY [facility] Last Admin: 07/07/17 11:03 Dose: 2,000 unit Cyanocobalamin (Vitamin B12 -) 1,000 mcg PO DAILY [facility] Last Admin: 07/07/17 11:02 Dose: 1,000 mcg Fluticasone Propionate (Flonase -) 2 spray NS DAILY [facility] Last Admin: 07/07/17 11:03 Dose: 2 spray Heparin Sodium (Porcine) (Heparin -) 5,000 unit SQ BID [facility] Last Admin: 07/07/17 11:02 Dose: 5,000 unit Levofloxacin (Levaquin -) 500 mg PO DAILY [facility] Last Admin: 07/07/17 11:03 Dose: 500 mg Levothyroxine Sodium (Synthroid -) 125 mcg PO DAILY@0700 [facility] Last Admin: 07/07/17 06:07 Dose: 125 mcg Loratadine (Claritin -) 10 mg PO DAILY [facility] Last Admin: 07/07/17 11:02 Dose: 10 mg Midodrine (Proamatine -) 5 mg PO BID-MID PRN PRN Reason: MAP<65mm Hg OR SBP <90 Rosuvastatin Calcium (Crestor -) 10 mg PO HS [facility] Last Admin: 07/06/17 21:09 Dose: 10 mg Sodium Chloride ([place] Nasal [place] -) 2 spray NS BID PRN PRN Reason: NASAL CONGESTION - Objective Vital Signs: Vital Signs Temperature 97.8 F 07/07/17 06:00 Pulse Rate 74 07/07/17 06:00 Respiratory Rate 20 07/07/17 06:00 Blood Pressure 128/78 07/07/17 06:00 O2 Sat by Pulse Oximetry (%) 98 07/06/17 17:31 Constitutional: Yes: No Distress Neck: Yes: Supple Cardiovascular: Yes: Regular Rate and Rhythm Respiratory: Yes: Regular, Diminished Gastrointestinal: Yes: Normal Bowel Sounds, Soft Edema: No Labs: CBC, BMP 07/05/17 10:17 07/05/17 10:17 INR, PTT INR 1.11 (0.82-1.09) 06/28/17 03:53 Problem List - Problems (1) Aspiration into respiratory tract Code(s): T17.908A - UNSP FB IN RESP TRACT, PART UNSP CAUSING OTH INJURY, INIT Qualifiers: Encounter type: initial encounter Qualified Code(s): T17.908A - Unspecified foreign body in respiratory tract, part unspecified causing other injury, initial encounter (2) Autonomic postural hypotension Code(s): I95.1 - ORTHOSTATIC HYPOTENSION (3) HLD (hyperlipidemia) Code(s): E78.5 - HYPERLIPIDEMIA, UNSPECIFIED Qualifiers: Hyperlipidemia type: pure hypercholesterolemia Qualified Code(s): E78.00 - Pure hypercholesterolemia, unspecified; E78.0 - Pure hypercholesterolemia (4) Hemoptysis Code(s): R04.2 - HEMOPTYSIS (5) History of throat cancer Code(s): Z85.819 - PRSNL HX OF MALIG NEOPLM OF UNSP SITE LIP,ORAL CAV,& PHARYNX (6) Hypothyroid Code(s): E03.9 - HYPOTHYROIDISM, UNSPECIFIED Qualifiers: Hypothyroidism type: unspecified Qualified Code(s): E03.9 - Hypothyroidism , unspecified (7) Labile essential hypertension Code(s): I10 - ESSENTIAL (PRIMARY) HYPERTENSION (8) PNA (pneumonia) Code(s): J18.9 - PNEUMONIA, UNSPECIFIED ORGANISM Qualifiers: Pneumonia type: aspiration pneumonia Laterality: right Lung location: lower lobe of lung Assessment/Plan 07/04/2017 Normal LV size and fxn, EF 55-60%, mild AR 09/28/2015 Normal LV size and fxn, mild LVH, mild-mod MR, TR, mild [place], AR 10/21/2015 Renovascular ultrasound showed no renal artery stenosis, increased resistive index bilaterally c/w small vessel renal disease 03/19/2016 normal LV systolic function, mild LAD, mild MR, TR, AR and small pericardial effusion Pharmacologic Lexiscan myocardial perfusion imaging study performed January revealed small size infero-basal wall defect compatible with diaphragmatic attenuation with normal left ventricular contraction pattern on LV gated analysis with calculated left ventricular ejection fraction of 67% at rest and 72% post Lexiscan infusion. Echocardiography performed September 28, 2015 revealed concentric left ventricular hypertrophy with overall preserved left ventricular systolic function and calculated left ventricular ejection fraction of 61%, mitral annular calcification, aortic valve leaflet sclerosis, left atrial dilatation measuring 4.2 cm, aortic root sclerosis and dilatation measuring 3.8 cm, mild to moderate mitral and tricuspid valve regurgitation, mild aortic valve regurgitation with calculated RVSP of 51 mmHg consistent with mild to moderate degree of pulmonary hypertension. 1. Aspiration Pneumonia with dysphagia post PEG 2. 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 Non-obstructive CAD, angina pectoris 3. Hyperlipidemia 4. Hypothyroidism 5. Benign prostatic hypertrophy P:1. Continue Norvasc 2.5 qd and Midodrine 5 bid prn SBP<90 mmHg (patient uses on as needed basis) as hemodynamics tolerate, continue ASA 81 qd, Crestor 10 qhs 2. Complete abx course, Supplemental O2 as needed 3. Enteral feeds, DVT prophylaxis 4. Holter monitor showed NSR, occ PVC, freq PAC, no pauses 5. Trial of treatment with Northera (a new agent for neurogenic orthostatic hypotension) 6. Will need to check ambulatory SpO2 on room air to assess for home O2 when ready for discharge
--- NOTE | 2017-07-07 12:28 | PN ---
Progress Note (short form) - Note Progress Note: PULMONARY +nonproductive cough but better. Tolerating bolus feeds. Desaturated with ambulation to 77% on room air. Last Vital Signs Temp Pulse Resp BP Pulse Ox 97.7 F 102 H 16 82/44 94 L 07/07/17 10:00 07/07/17 12:07 07/07/17 10:00 07/07/17 10:00 07/07/17 12:07 Gen: NAD at rest Heart: RRR Lung: basilar rales Abd: soft, nontender Ext: no edema CBC, BMP 07/05/17 10:17 07/05/17 10:17 Active Medications Acetaminophen (Tylenol -) 650 mg PO Q6H PRN PRN Reason: PAIN LEVEL 6-10 Albuterol/Ipratropium (Duoneb -) 1 amp NEB RQID [facility] Last Admin: 07/07/17 11:32 Dose: 1 amp Amino Acids (Prosource No Carb Liquid Pkt) 30 ml PO BID@0800,1730 [facility] Last Admin: 07/07/17 11:02 Dose: 30 ml Amlodipine Besylate (Norvasc -) 2.5 mg PO DAILY [facility] Last Admin: 07/07/17 11:03 Dose: 2.5 mg Aspirin (Asa -) 81 mg PO DAILY [facility] Last Admin: 07/07/17 11:03 Dose: 81 mg Bacitracin (Bacitracin -) 1 applic TP DAILY [facility] Last Admin: 07/07/17 11:03 Dose: 1 applic Cholecalciferol (Vitamin D3 -) 2,000 unit PO DAILY [facility] Last Admin: 07/07/17 11:03 Dose: 2,000 unit Cyanocobalamin (Vitamin B12 -) 1,000 mcg PO DAILY [facility] Last Admin: 07/07/17 11:02 Dose: 1,000 mcg Fluticasone Propionate (Flonase -) 2 spray NS DAILY [facility] Last Admin: 07/07/17 11:03 Dose: 2 spray Heparin Sodium (Porcine) (Heparin -) 5,000 unit SQ BID [facility] Last Admin: 07/07/17 11:02 Dose: 5,000 unit Levofloxacin (Levaquin -) 500 mg PO DAILY [facility] Last Admin: 07/07/17 11:03 Dose: 500 mg Levothyroxine Sodium (Synthroid -) 125 mcg PO DAILY@0700 [facility] Last Admin: 07/07/17 06:07 Dose: 125 mcg Loratadine (Claritin -) 10 mg PO DAILY [facility] Last Admin: 07/07/17 11:02 Dose: 10 mg Midodrine (Proamatine -) 5 mg PO BID-MID PRN PRN Reason: MAP<65mm Hg OR SBP <90 Rosuvastatin Calcium (Crestor -) 10 mg PO HS [facility] Last Admin: 07/06/17 21:09 Dose: 10 mg Sodium Chloride ([place] Nasal [place] -) 2 spray NS BID PRN PRN Reason: NASAL CONGESTION A/P Pneumonia likely Aspiration h/o Laryngeal Ca HTN Hypercholesterolemia Hypothyroidism - continue antibiotics - aspiration precautions - inhaled bronchodilators - enteral feeds - DVT prophylaxis - will need home O2 for chronic hypoxic respiratory failure
--- NOTE | 2017-07-07 14:26 | PN ---
Progress Note (short form) - Note Progress Note: PEG tube was inserted because of silent aspiration noted on MBS. patient was noted to be silently aspirating intermittently, and he was not able to feel the aspirate or cough up reflexively in a timely manner. patient will need extensive swallow therapy as an outpatient which might improve his condition and he might be able to eat orally again. Problem List - Problems (1) Aspiration into respiratory tract Code(s): T17.908A - UNSP FB IN RESP TRACT, PART UNSP CAUSING OTH INJURY, INIT Qualifiers: Encounter type: initial encounter Qualified Code(s): T17.908A - Unspecified foreign body in respiratory tract, part unspecified causing other injury, initial encounter (2) HLD (hyperlipidemia) Code(s): E78.5 - HYPERLIPIDEMIA, UNSPECIFIED Qualifiers: Hyperlipidemia type: pure hypercholesterolemia Qualified Code(s): E78.00 - Pure hypercholesterolemia, unspecified; E78.0 - Pure hypercholesterolemia (3) Hypothyroid Code(s): E03.9 - HYPOTHYROIDISM, UNSPECIFIED Qualifiers: Hypothyroidism type: unspecified Qualified Code(s): E03.9 - Hypothyroidism , unspecified
--- NOTE | 2017-07-07 16:06 | PN ---
Progress Note, FACILITIES COORDINATOR - Note Progress Note: I believe pt has excellent potential to tolerate PO intake with modified diet and use of compensatory strategies. Hopefully pt can be weaned from PEG feedings , or use predominantly for hydration/medication. Pt still does not have an appt set up with [facility]. I have suggested to family to follow up or call [facility]/Jaun to set up appt soon. It is important for him to perform the swallowing exercises and begin PO trials. Homecare swallowing tx can be ordered if out pt appt not yet obtained upon d/c.
[2017-07-07] MEDS ORDERED: PT OWN MED DRAWER 7, Y5N ONE (17:35)
[2017-07-07] MEDS: ROSUVASTATIN CA 10 MG TABLET (FP) PO SCH (21:52)
[2017-07-08] MEDS: LEVOTHYROXINE NA 125 MCG TABLET (FP) PO SCH (06:19)
[2017-07-08] MEDS: ALBUTEROL SO4 2.5/IPRATROPIUM 0.5 INH SOL 3 ML VIAL.NEB. NEB SCH ×3 (08:48→15:35)
[2017-07-08] MEDS: CHOLECALCIFEROL (VITAMIN D3) 1,000 UNIT TABLET (FP) PO SCH (09:40)
[2017-07-08] MEDS: amLODIPine BESYLATE 5 MG TABLET (FP) PO SCH (09:40)
[2017-07-08] MEDS: CYANOCOBALAMIN 1,000 MCG TABLET (FP) PO SCH (09:40)
[2017-07-08] MEDS: AMINO ACIDS/PROTEIN HYDROLYS 30 ML LIQUID.PKT PO SCH (09:40)
[2017-07-08] MEDS: HEPARIN NA (PORCINE) 5,000 UNITS/ML 1ML VIAL SQ SCH (09:40)
[2017-07-08] MEDS: ASPIRIN 81 MG CHEWABLE TABLETS PO SCH (09:40)
--- NOTE | 2017-07-08 09:40 | PN ---
Progress Note (short form) - Note Progress Note: PULMONARY Still with some nonproductive cough. Tolerating bolus feeds. Last Vital Signs Temp Pulse Resp BP Pulse Ox 98.3 F 81 20 141/94 94 L 07/08/17 06:00 07/08/17 06:00 07/08/17 06:00 07/08/17 06:00 07/07/17 22:00 Gen: NAD at rest Heart: RRR Lung: basilar rales Abd: soft, nontender Ext: no edema CBC, BMP 07/05/17 10:17 07/05/17 10:17 Active Medications Acetaminophen (Tylenol -) 650 mg PO Q6H PRN PRN Reason: PAIN LEVEL 6-10 Albuterol/Ipratropium (Duoneb -) 1 amp NEB RQID [facility] Last Admin: 07/08/17 08:48 Dose: 1 amp Amino Acids (Prosource No Carb Liquid Pkt) 30 ml PO BID@0800,1730 [facility] Last Admin: 07/07/17 17:43 Dose: 30 ml Amlodipine Besylate (Norvasc -) 2.5 mg PO DAILY [facility] Last Admin: 07/07/17 11:03 Dose: 2.5 mg Aspirin (Asa -) 81 mg PO DAILY [facility] Last Admin: 07/07/17 11:03 Dose: 81 mg Bacitracin (Bacitracin -) 1 applic TP DAILY [facility] Last Admin: 07/07/17 11:03 Dose: 1 applic Cholecalciferol (Vitamin D3 -) 2,000 unit PO DAILY [facility] Last Admin: 07/07/17 11:03 Dose: 2,000 unit Cyanocobalamin (Vitamin B12 -) 1,000 mcg PO DAILY [facility] Last Admin: 07/07/17 11:02 Dose: 1,000 mcg Fluticasone Propionate (Flonase -) 2 spray NS DAILY [facility] Last Admin: 07/07/17 11:03 Dose: 2 spray Heparin Sodium (Porcine) (Heparin -) 5,000 unit SQ BID [facility] Last Admin: 07/07/17 21:52 Dose: 5,000 unit Levofloxacin (Levaquin -) 500 mg PO DAILY [facility] Last Admin: 07/07/17 11:03 Dose: 500 mg Levothyroxine Sodium (Synthroid -) 125 mcg PO DAILY@0700 [facility] Last Admin: 07/08/17 06:19 Dose: 125 mcg Loratadine (Claritin -) 10 mg PO DAILY [facility] Last Admin: 07/07/17 11:02 Dose: 10 mg Midodrine (Proamatine -) 5 mg PO BID-MID PRN PRN Reason: MAP<65mm Hg OR SBP <90 Rosuvastatin Calcium (Crestor -) 10 mg PO HS [facility] Last Admin: 07/07/17 21:52 Dose: 10 mg Sodium Chloride ([place] Nasal [place] -) 2 spray NS BID PRN PRN Reason: NASAL CONGESTION A/P Pneumonia likely Aspiration h/o Laryngeal Ca HTN Hypercholesterolemia Hypothyroidism - continue antibiotics - aspiration precautions - inhaled bronchodilators - enteral feeds - DVT prophylaxis - will need home O2 for chronic hypoxic respiratory failure - can be discharged from pulmonary standpoint on home O2
[2017-07-08] MEDS: FLUTICASONE PROP 0.05% 16 GM NASAL SPRAY NS SCH (09:41)
[2017-07-08] MEDS: BACITRACIN 15 GM TUBE TOPICAL OINTMENT TP SCH (09:41)
[2017-07-08] MEDS: LORATADINE 10 MG TABLET PO SCH (09:41)
--- NOTE | 2017-07-08 10:01 | PN ---
Progress Note, Physician Chief Complaint: aspiration pneumonia History of Present Illness: NAD, in bed was unable to tolerate continous feeding changed to Bolus feedings- which he will be getting at home Seen by Cardiology for labile BP's - Current Medication List Current Medications: Active Medications Acetaminophen (Tylenol -) 650 mg PO Q6H PRN PRN Reason: PAIN LEVEL 6-10 Albuterol/Ipratropium (Duoneb -) 1 amp NEB RQID [facility] Last Admin: 07/08/17 08:48 Dose: 1 amp Amino Acids (Prosource No Carb Liquid Pkt) 30 ml PO BID@0800,1730 [facility] Last Admin: 07/08/17 09:40 Dose: 30 ml Amlodipine Besylate (Norvasc -) 2.5 mg PO DAILY [facility] Last Admin: 07/08/17 09:40 Dose: 2.5 mg Aspirin (Asa -) 81 mg PO DAILY [facility] Last Admin: 07/08/17 09:40 Dose: 81 mg Bacitracin (Bacitracin -) 1 applic TP DAILY [facility] Last Admin: 07/08/17 09:41 Dose: 1 applic Cholecalciferol (Vitamin D3 -) 2,000 unit PO DAILY [facility] Last Admin: 07/08/17 09:40 Dose: 2,000 unit Cyanocobalamin (Vitamin B12 -) 1,000 mcg PO DAILY [facility] Last Admin: 07/08/17 09:40 Dose: 1,000 mcg Fluticasone Propionate (Flonase -) 2 spray NS DAILY [facility] Last Admin: 07/08/17 09:41 Dose: 2 spray Heparin Sodium (Porcine) (Heparin -) 5,000 unit SQ BID [facility] Last Admin: 07/08/17 09:40 Dose: 5,000 unit Levothyroxine Sodium (Synthroid -) 125 mcg PO DAILY@0700 [facility] Last Admin: 07/08/17 06:19 Dose: 125 mcg Loratadine (Claritin -) 10 mg PO DAILY [facility] Last Admin: 07/08/17 09:41 Dose: 10 mg Midodrine (Proamatine -) 5 mg PO BID-MID PRN PRN Reason: MAP<65mm Hg OR SBP <90 Rosuvastatin Calcium (Crestor -) 10 mg PO HS [facility] Last Admin: 07/07/17 21:52 Dose: 10 mg Sodium Chloride ([place] Nasal [place] -) 2 spray NS BID PRN PRN Reason: NASAL CONGESTION - Objective Vital Signs: Vital Signs Temperature 98.3 F 07/08/17 06:00 Pulse Rate 81 07/08/17 06:00 Respiratory Rate 20 07/08/17 06:00 Blood Pressure 141/94 07/08/17 06:00 O2 Sat by Pulse Oximetry (%) 94 L 07/07/17 22:00 Constitutional: Yes: Well Nourished, No Distress, Calm Cardiovascular: Yes: Regular Rate and Rhythm Respiratory: Yes: Regular Gastrointestinal: Yes: Normal Bowel Sounds, Soft, Other (PEG) Musculoskeletal: Yes: WNL Extremities: Yes: WNL Edema: No Peripheral Pulses WNL: Yes Neurological: Yes: Alert, Oriented Psychiatric: Yes: Alert, Oriented Labs: CBC, BMP 07/05/17 10:17 07/05/17 10:17 INR, PTT INR 1.11 (0.82-1.09) 06/28/17 03:53 Problem List - Problems (1) Aspiration pneumonia Assessment/Plan: -Feeding through PEG- BOLUS -NPO until repeat swallow eval and therapy outpatient -seen by Speech pathology inpatient -ID and pulmonary on board -PO abx X 3 days-completed Code(s): J69.0 - PNEUMONITIS DUE TO INHALATION OF FOOD AND VOMIT (2) History of throat cancer Code(s): Z85.819 - PRSNL HX OF MALIG NEOPLM OF UNSP SITE LIP,ORAL CAV,& PHARYNX (3) Orthostatic hypotension Assessment/Plan: +orthostatics compression stockings -decrease amlodipine to 2.5 mg po daily, hold for SBP <100 mm Hg -Midodrine BID PRN for SBP below 90 mm Hg Code(s): I95.1 - ORTHOSTATIC HYPOTENSION (4) Hypokalemia Assessment/Plan: -likely 2/2 to decreased po intake -resolved Code(s): E87.6 - HYPOKALEMIA (5) Syncope Assessment/Plan: echo reviewed carotid U/S unremarkable cardiology consult appreciated Code(s): R55 - SYNCOPE AND COLLAPSE Qualifiers: Syncope type: unspecified Qualified Code(s): R55 - Syncope and collapse Assessment/Plan See problem list Physical therapy
--- NOTE | 2017-07-08 11:22 | PN ---
Progress Note, Physician Chief Complaint: Events noted Not in distress History of Present Illness: Patient was seen and examined. Awake and alert. Chart was reviewed Denies chest pain, SOB or palpitations Less cough - Current Medication List Current Medications: Active Medications Acetaminophen (Tylenol -) 650 mg PO Q6H PRN PRN Reason: PAIN LEVEL 6-10 Albuterol/Ipratropium (Duoneb -) 1 amp NEB RQID [facility] Last Admin: 07/08/17 08:48 Dose: 1 amp Amino Acids (Prosource No Carb Liquid Pkt) 30 ml PO BID@0800,1730 [facility] Last Admin: 07/08/17 09:40 Dose: 30 ml Amlodipine Besylate (Norvasc -) 2.5 mg PO DAILY [facility] Last Admin: 07/08/17 09:40 Dose: 2.5 mg Aspirin (Asa -) 81 mg PO DAILY [facility] Last Admin: 07/08/17 09:40 Dose: 81 mg Bacitracin (Bacitracin -) 1 applic TP DAILY [facility] Last Admin: 07/08/17 09:41 Dose: 1 applic Cholecalciferol (Vitamin D3 -) 2,000 unit PO DAILY [facility] Last Admin: 07/08/17 09:40 Dose: 2,000 unit Cyanocobalamin (Vitamin B12 -) 1,000 mcg PO DAILY [facility] Last Admin: 07/08/17 09:40 Dose: 1,000 mcg Fluticasone Propionate (Flonase -) 2 spray NS DAILY [facility] Last Admin: 07/08/17 09:41 Dose: 2 spray Heparin Sodium (Porcine) (Heparin -) 5,000 unit SQ BID [facility] Last Admin: 07/08/17 09:40 Dose: 5,000 unit Levothyroxine Sodium (Synthroid -) 125 mcg PO DAILY@0700 [facility] Last Admin: 07/08/17 06:19 Dose: 125 mcg Loratadine (Claritin -) 10 mg PO DAILY [facility] Last Admin: 07/08/17 09:41 Dose: 10 mg Midodrine (Proamatine -) 5 mg PO BID-MID PRN PRN Reason: MAP<65mm Hg OR SBP <90 Rosuvastatin Calcium (Crestor -) 10 mg PO HS [facility] Last Admin: 07/07/17 21:52 Dose: 10 mg Sodium Chloride ([place] Nasal [place] -) 2 spray NS BID PRN PRN Reason: NASAL CONGESTION - Objective Vital Signs: Vital Signs Temperature 98.3 F 07/08/17 06:00 Pulse Rate 81 07/08/17 06:00 Respiratory Rate 20 07/08/17 06:00 Blood Pressure 141/94 07/08/17 06:00 O2 Sat by Pulse Oximetry (%) 94 L 07/07/17 22:00 HENT: Yes: Atraumatic Neck: Yes: Supple Cardiovascular: Yes: Regular Rate and Rhythm, S1, S2 Respiratory: Yes: CTA Bilaterally Gastrointestinal: Yes: Normal Bowel Sounds, Soft. No: Tenderness Edema: No Problem List - Problems (1) Aspiration pneumonia Code(s): J69.0 - PNEUMONITIS DUE TO INHALATION OF FOOD AND VOMIT (2) Carotid stenosis Code(s): I65.29 - OCCLUSION AND STENOSIS OF UNSPECIFIED CAROTID ARTERY (3) Orthostatic hypotension Code(s): I95.1 - ORTHOSTATIC HYPOTENSION (4) Autonomic postural hypotension Code(s): I95.1 - ORTHOSTATIC HYPOTENSION (5) HLD (hyperlipidemia) Code(s): E78.5 - HYPERLIPIDEMIA, UNSPECIFIED Qualifiers: Hyperlipidemia type: pure hypercholesterolemia Qualified Code(s): E78.00 - Pure hypercholesterolemia, unspecified; E78.0 - Pure hypercholesterolemia (6) HTN (hypertension) Code(s): I10 - ESSENTIAL (PRIMARY) HYPERTENSION Qualifiers: Hypertension type: essential hypertension Qualified Code(s): I10 - Essential (primary) hypertension (7) History of throat cancer Code(s): Z85.819 - PRSNL HX OF MALIG NEOPLM OF UNSP SITE LIP,ORAL CAV,& PHARYNX (8) Hypothyroid Code(s): E03.9 - HYPOTHYROIDISM, UNSPECIFIED Qualifiers: Hypothyroidism type: unspecified Qualified Code(s): E03.9 - Hypothyroidism , unspecified (9) PNA (pneumonia) Code(s): J18.9 - PNEUMONIA, UNSPECIFIED ORGANISM Qualifiers: Pneumonia type: aspiration pneumonia Laterality: right Lung location: lower lobe of lung (10) Syncope Code(s): R55 - SYNCOPE AND COLLAPSE Qualifiers: Syncope type: unspecified Qualified Code(s): R55 - Syncope and collapse Assessment/Plan 1. Aspiration Pneumonia with dysphagia post PEG 2. 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 Non-obstructive CAD, angina pectoris 3. Hyperlipidemia 4. Hypothyroidism 5. Benign prostatic hypertrophy PLAN: 1. Continue Norvasc 2.5 qd and Midodrine 5 bid prn SBP<90 mmHg. Continue ASA 81 qd and Crestor 10 qhs 2. Complete antibiotic course and Supplemental O2 as needed 3. Enteral feeds and DVT prophylaxiss 4. Trial of treatment with Northera (a new agent for neurogenic orthostatic hypotension) 5. Nutrition via PEG Further plans are to follow. Patient to follow up with Dr. Guardado in the office Gutierrez Acevedo MD
--- NOTE | 2017-07-08 13:50 | PN ---
Progress Note, CREDIT COORDINATOR - Note Progress Note: I believe pt has excellent potential to tolerate PO intake with modified diet and use of compensatory strategies. Hopefully pt can be weaned from PEG feedings , or use predominantly for hydration/medication. Pt and his have not yet set up an appt with out pt tx. They will not receive home care. Pt is performing swallowing exercises independently but will benefit from initiation of PO trials with a sp pathologist. Pending d/c.
[2017-07-08 14:59] VITALS: BP 123/69; PULSE 85; TEMP 97.9
== END 2017-07-08 17:24 | disposition home health service (06) | DRG 177 ==
LOC: JER 02:51 → INTOOBSV 05:51 → JERBED 05:51 → UNDOADMOB 05:51 → JERBED 05:55 → UNDOADMIN 05:55 → JERBED 06:15 → J8W 06:44 → OBSVTOIN 06-30 09:24
PROVIDERS: ADMIT Internal Medicine; ATTEND Family Medicine
PROC: 0DH63UZ Insertion of Feeding Device into Stomach, Percutaneous Approach (ICD-10-PCS; principal; 2017-07-03 07:30)
DX: J69.0 Pneumonitis due to inhalation of food and vomit (principal); J96.21 Acute and chronic respiratory failure with hypoxia; R04.2 Hemoptysis; G90.3 Multi-system degeneration of the autonomic nervous system; I95.1 Orthostatic hypotension; I25.119 Atherosclerotic heart disease of native coronary artery with unspecified angina pectoris; E78.5 Hyperlipidemia, unspecified; E03.9 Hypothyroidism, unspecified; N40.0 Benign prostatic hyperplasia without lower urinary tract symptoms; E87.6 Hypokalemia; R55 Syncope and collapse; I65.29 Occlusion and stenosis of unspecified carotid artery; N28.9 Disorder of kidney and ureter, unspecified; G62.9 Polyneuropathy, unspecified; Z85.819 Personal history of malignant neoplasm of unspecified site of lip, oral cavity, and pharynx; R13.10 Dysphagia, unspecified; I10 Essential (primary) hypertension; R41.0 Disorientation, unspecified
CPT/HCPCS: 36415; 70552-TC; 71045-TC-FY; 71046-TC-FY; 71250-TC; 74230-TC-FY; 80048; 80053; 81003; 81015; 82550; 82803; 83605; 83735; 84100; 84443; 84484; 85025; 85610; 85651; 85730; 86140; 86480; 87040; 87070; 87086; 87186; 87205; 87804; 92611-GN; 93005; 93010; 93225; 93226; 93306-TC; 93880-TC; 94640; 94761; 97116-GP; 97161-GP; 99282-25; G0378; J0131; J1644; J7030; J7620

== ENCOUNTER 2017-09-26 14:12 | Emergency (ER) | payer OTHER, BC ==
[2017-09-26 14:36] VITALS: BP 154/86; PULSE 81; TEMP 98.2; BMI 27.1
--- NOTE | 2017-09-26 15:32 | PDOC ---
Attending Attestation - Resident Resident Name: RadhaKobe - ED Attending Attestation I have performed the following: I have examined & evaluated the patient, The case was reviewed & discussed with the resident, I agree w/resident's findings & plan, Exceptions are as noted - HPI HPI: 09/26/17 15:27 72 yo M c/ hx of HTN, labile HTN, carotid stenosis, neck cancer s/p radiation, CRI, HLD, aspiration PNA, PEG tube presents from Dr. Murillo for hypotension and dizziness. The patient reports a chronic history of alternating hypotension and hypertension that he controls at home with medications, either with midorine or amlodopine. The patient states that since his radiation to his neck, he has been having labile blood pressures, which is chronic. Yesterday, he started to note that he had an episode of low grade temperature but no other symptoms. Today, while visiting his PMD for review of his low grade fever (which he doesn' t have anymore). While in the office, the patient has had lightheadedness ( which he typically reports he has low blood pressure). The patient had systolics of 80s and the patient was sent here. The patient's blood pressure readings typically ranges from 80s to 200s. He currently has no complaints and wishes to go home. - Physicial Exam PE: 09/26/17 18:31 GENERAL: Awake, alert, and fully oriented, in no acute distress HEAD: No signs of trauma EYES: PERRLA, EOMI, sclera anicteric, conjunctiva clear ENT: Auricles normal inspection, hearing grossly normal, nares patent, oropharynx clear without exudates. Moist mucosa NECK: Normal ROM, supple LUNGS: Breath sounds equal, clear to auscultation bilaterally. No wheezes, and no crackles HEART: Regular rate and rhythm, normal S1 and S2, no murmurs, rubs or gallops ABDOMEN: Soft, nontender No guarding, no rebound. No masses +Peg clean dry and intact. EXTREMITIES: Normal range of motion, no edema. No clubbing or cyanosis. No cords, erythema, or tenderness NEUROLOGICAL: Cranial nerves II through XII grossly intact. Normal speech, normal gait SKIN: Warm, Dry, normal turgor, no rashes or lesions noted. - Medical Decision Making 09/26/17 18:38 Vital Signs Temp Pulse Resp BP Pulse Ox 98.2 F 81 16 154/86 98 09/26/17 14:30 09/26/17 14:30 09/26/17 14:30 09/26/17 14:30 09/26/17 14:30 The patient is otherwise nontoxic and well-appearing. I suspect his dizziness was secondary to his labile blood pressures. Patient reports that this is chronic for him. We wanted to ensure that his low grade fever from yesterday from an infectious process such as aspiration PNA. Chest xray reviewed by me, pending official radiology read, demonstrates no infiltrates. Labs reviewed and otherwise unremarkable. Perhaps he may have had a small viral syndrome, However, he is now well- appearing and comfortable. I feel comfortable in allowing patient to go home and have supportive care. 09/26/17 18:56 Heart Score/ECG Review #1 ECG reviewed & interpreted by me at: 16:15 09/26/17 18:40 NSR 77, nonspecific T wave abnormality, QTC 466 msec, no std/maryse
[2017-09-26 16:20] LABS: BASO % 0.4 % (0-2.0); EOS % 1.4 % (0-4.5); HEMATOCRIT 37.2 % (35.4-49); HEMOGLOBIN 12.4 GM/dL (11.7-16.9); LYMPH % 6.9 % (8-40); MCH 28.2 pg (25.7-33.7); MCHC 33.4 g/dl (32.0-35.9); MEAN CELL VOLUME 84.4 fl (80-96); MONO % 7.7 % (3.8-10.2); NEUT % 83.6 % (42.8-82.8); PLATELET COUNT 227 K/MM3 (134-434); RBC 4.41 M/mm3 (4.00-5.60); RDW 14.2 % (11.9-15.9); WHITE BLOOD COUNT 9.4 K/mm3 (4.0-10.0)
--- NOTE | 2017-09-26 16:25 | PDOC ---
History of Present Illness - General Chief Complaint: Blood Pressure Problem Stated Complaint: Blood Pressure Problem Time Seen by Provider: 09/26/17 14:37 History Source: Patient Exam Limitations: No Limitations - History of Present Illness Initial Comments: 09/26/17 16:14 72 yo male pmh of hyperlipidemia, carotid stenosis, renal insufficiency, aspiration pneumonia (currently has a peg tube) labile hypertension (ranges from SBP 80s to 230s) due to radiation of head and neck from throat cancer presents to ED from PCPs office (Dr. Murillo) for hypotension and dizziness. Patients history of head and neck cancer radiation lead to extreme variability in blood pressures from damaged baroreceptors and is required to self medicate based on daily pressures with Amlodipine and Midorine. At his PCPs office his pressure was in the 80s and was reportedly dizzy. Patient took 10mg of Midodrine which improved his pressure during triage to 154/86. Currently patient is feeling well and has no specific complaints but does admit to feeling fevers last night with a recorded temp of 99.6. Patient denies current f /c/n/v abdominal pain, changes in bowel or bladder habits, CP or SOB Past History - Past Medical History Allergies/Adverse Reactions: Allergies Allergy/AdvReac Type Severity Reaction Status Date / Time tamsulosin HCl [From Flomax] AdvReac Intermediate dizziness Verified 09/26/17 14 :29 Home Medications: Ambulatory Orders Aspirin [ASA -] 81 mg PO DAILY 10/20/15 Cholecalciferol (Vitamin D3) [Vitamin D3] 2,000 unit PO DAILY 10/20/15 Cyanocobalamin (Vitamin B-12) [Vitamin B-12] 1,000 mcg PO DAILY 10/20/15 Levothyroxine Sodium [Unithroid] 125 mcg PO DAILY 10/20/15 Rosuvastatin Calcium [Crestor] 10 mg PO HS 10/20/15 Acetaminophen [Tylenol .Regular Strength -] 650 mg PO Q6H PRN tablet 07/06/17 Amino Acids/Protein Hydrolys [Prosource No Carb Liquid Pkt] 30 ml PO BID@0800, 1730 #1800 ml 07/06/17 Amlodipine Besylate [Norvasc -] 2.5 mg PO DAILY #30 tablet 07/06/17 Fluticasone Prop 0.05% Nasal [Flonase -] 2 spray NS DAILY #1 inh 07/06/17 Loratadine [Claritin -] 10 mg PO DAILY #30 tablet 07/06/17 Midodrine HCl [Proamatine -] 5 mg PO BID-MID PRN #60 tablet 07/06/17 Anemia: No Asthma: No Cancer: Yes (Tongue and throat CA 2010) Cardiac Disorders: No CVA: No COPD: No CHF: No Dementia: No Diabetes: No GI Disorders: Yes (GERD) Disorders: (BPH) HTN: Yes Hypercholesterolemia: Yes Liver Disease: No Seizures: No Thyroid Disease: Yes (hypo) - Surgical History Abdominal Surgery: No Appendectomy: No Cardiac Surgery: No Cholecystectomy: No Lung Surgery: No Neurologic Surgery: No Orthopedic Surgery: Yes - Immunization History Immunization Up to Date: Yes - Suicide/Smoking/Psychosocial Hx Smoking History: Never smoked Have you smoked in the past 12 months: No Information on smoking cessation initiated: No Hx Alcohol Use: No Drug/Substance Use Hx: No Substance Use Type: None Hx Substance Use Treatment: No Review of Systems - Review of Systems Constitutional: No: Chills, Diaphoresis, Fever HEENTM: No: Recent change in vision Respiratory: Yes: Cough (persistent ), Productive cough (ongoing issue). No: Shortness of Breath, SOB with Exertion, Stridor, Wheezing, Hemoptysis Cardiac (ROS): No: Chest Pain, Edema, Irregular Heart Rate, Lightheadedness, Palpitations, Syncope ABD/GI: No: Abdominal Distended, Constipated, Diarrhea, Nausea, Vomiting : No: Burning, Dysuria, Discharge, Frequency, Flank Pain Musculoskeletal: No: Back Pain, Muscle Weakness Neurological: No: Headache, Numbness, Paresthesia, Tingling, Weakness *Physical Exam - Vital Signs Last Vital Signs Temp Pulse Resp BP Pulse Ox 98.2 F 81 16 154/86 98 09/26/17 14:30 09/26/17 14:30 09/26/17 14:30 09/26/17 14:30 09/26/17 14:30 - Physical Exam General Appearance: Yes: Nourished, Appropriately Dressed. No: Apparent Distress HEENT: positive: EOMI, Normal ENT Inspection Neck: negative: Carotid bruit Respiratory/Chest: positive: Other (Left lower lobe gargling other lobes clear to auscultation). negative: Lungs Clear, Respiratory Distress, Crackles, Wheezing Cardiovascular: positive: Regular Rhythm, Regular Rate, S1, S2. negative: Edema , JVD, Murmur Vascular Pulses: Dorsalis-Pedis (R): 4+, Doralis-Pedis (L): 4+ Gastrointestinal/Abdominal: positive: Normal Bowel Sounds. negative: Tender, Pulsatile Mass, Distended, Guarding, Rebound, Tenderness Extremity: positive: Normal Capillary Refill. 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 tech II-XII NML intact, Fully Oriented, Alert, Normal Mood/ Affect, Normal Response, Motor Strength 07/12 ED Treatment Course - LABORATORY CBC & Chemistry Diagram: 09/26/17 15:58 09/26/17 15:58 - RADIOLOGY Radiology Studies Ordered: Category Date Time Status CHEST X-RAY PORTABLE* [RAD] Stat Radiology 09/26/17 15:33 Ordered Medical Decision Making - Medical Decision Making 09/26/17 17:25 72 yo male pmh of hyperlipidemia, carotid stenosis, renal insufficiency, aspiration pneumonia (currently has a peg tube) labile hypertension (ranges from SBP 80s to 230s) due to radiation of head and neck from throat cancer presents to ED from PCPs office (Dr. Murillo) for hypotension and dizziness.At his PCPs office his pressure was in the 80s and was reportedly dizzy. Patient took 10mg of Midodrine which improved his pressure during triage to 154/86. Patient has had multiple blood pressure rechecks all within 150s SBP and no continued feelings of dizziness. Chest x ray negative for aspiration pneumonia Patient had an exacerbation of ongoing medical problem (labile pressures) and was self treated prior to arrival. Patient resting comfortably with no new complaints and plan to discharge home. 09/26/17 18:34 *DC/Admit/Observation/Transfer Diagnosis at time of Disposition: Labile hypertension - Discharge Dispostion Disposition: HOME Condition at time of disposition: Good Decision to Admit order: No - Referrals Referrals: Fern Murillo MD [Primary Care Provider] - - Patient Instructions Printed Discharge Instructions: How to Monitor Your Blood Pressure at Home, DI for High Blood Pressure Additional Instructions: please follow up with your PCP within 3 day. Please return to the Emergency Room if you have new or worsening symptoms including but not limited too loss of consciousness, persistent dizziness, chest pain, palpitations or shortness of breath. Please continue taking your home doses of medication to treat high and low pressures as needed. - Post Discharge Activity
[2017-09-26 16:44] LABS: ALBUMIN 3.7 g/dl (3.4-5.0); ALK PHOS 78 U/L (45-117); ANION GAP 6 (8-16); BILIRUBIN,TOTAL 0.7 mg/dL (0.2-1.0); BLOOD UREA NITROGEN 20 mg/dL (7-18); CALCIUM 9.5 mg/dL (8.5-10.1); CHLORIDE 101 mmol/L (98-107); CO2 34 mmol/L (21-32); CREATININE 0.9 mg/dL (0.7-1.3); GLUCOSE,RANDOM 94 mg/dL (74-106); POTASSIUM 3.6 mmol/L (3.5-5.1); SGOT/AST 9 U/L (15-37); SGPT/ALT 15 U/L (12-78); SODIUM 141 mmol/L (136-145); TOT PROT 7.4 g/dl (6.4-8.2)
--- NOTE | 2017-09-27 10:09 | EKG ---
Test Reason : Blood Pressure : / mmHG Vent. Rate : 077 BPM Atrial Rate : 077 BPM P-R Int : 176 ms QRS Dur : 090 ms QT Int : 412 ms P-R-T Axes : 048 003 044 degrees QTc Int : 466 ms NORMAL SINUS RHYTHM NONSPECIFIC T WAVE ABNORMALITY PROLONGED QT ABNORMAL ECG WHEN COMPARED WITH ECG OF 04-JUL-2017 09:41, NONSPECIFIC T WAVE ABNORMALITY NOW EVIDENT IN LATERAL LEADS Confirmed by KEON DOTSON, ASHLEIGH ([id number]) on 09/27/2017 10:09:19 AM Referred By: Confirmed By:ASHLEIGH HERBERT MD
== END 2017-09-26 19:35 | disposition home or self-care (01) ==
LOC: JER 14:12
DX: I10 Essential (primary) hypertension (principal); T66.XXXA Radiation sickness, unspecified, initial encounter; I65.29 Occlusion and stenosis of unspecified carotid artery; I12.9 Hypertensive chronic kidney disease with stage 1 through stage 4 chronic kidney disease, or unspecified chronic kidney disease; N18.9 Chronic kidney disease, unspecified; N40.0 Benign prostatic hyperplasia without lower urinary tract symptoms; Z85.810 Personal history of malignant neoplasm of tongue; Z85.818 Personal history of malignant neoplasm of other sites of lip, oral cavity, and pharynx; Z93.1 Gastrostomy status
CPT/HCPCS: 36415; 71045-TC-FY; 80053; 84484; 85025; 93005; 93010; 99283-25

== ENCOUNTER 2018-01-16 03:26 | Inpatient (IN) | payer OTHER, BC ==
--- NOTE | 2018-01-16 04:11 | PDOC ---
History of Present Illness - General Chief Complaint: Lightheaded Stated Complaint: DIZZINESS Time Seen by Provider: 01/16/18 03:30 - History of Present Illness Initial Comments: 72yo M with PMH of labile blood pressure, bph, gerd, hypothyroid, hld, cardiac stenosis, renal insufficiency, aspiration pneumonia presenting with fever and chills. Patients at the bedside providing collateral history. She measured a fever of 102.3 at home and out of concern for this and his recent chills, patient decided to come to the ED. He has used home oxygen 2L since he was discharged from the hospital in July for aspiration pneumonia. Patient will sometimes desat in the mid-80s when at home. Patient reports having a cough since that time as well. He last saw his truck operator, Dr. Maki on 10/30/17 and has an appointment to see him again on 02/03/18. Patient describes how his labile blood pressures are at his baseline, necessitating as many as twenty bp checks per day. Denies chest pain, shortness of breath, or abdominal pain. Past History - Past Medical History Allergies/Adverse Reactions: Allergies Allergy/AdvReac Type Severity Reaction Status Date / Time tamsulosin HCl [From Flomax] AdvReac Intermediate dizziness Verified 01/16/18 03 :35 Home Medications: Ambulatory Orders Aspirin [ASA -] 81 mg PO DAILY 10/20/15 Cholecalciferol (Vitamin D3) [Vitamin D3] 2,000 unit PO DAILY 10/20/15 Cyanocobalamin (Vitamin B-12) [Vitamin B-12] 1,000 mcg PO DAILY 10/20/15 Levothyroxine Sodium [Unithroid] 125 mcg PO DAILY 10/20/15 Rosuvastatin Calcium [Crestor] 10 mg PO HS 10/20/15 Acetaminophen [Tylenol .Regular Strength -] 650 mg PO Q6H PRN tablet 07/06/17 Midodrine HCl [Proamatine -] 5 mg PO BID-MID PRN #60 tablet 07/06/17 Albuterol 0.083% Nebulizer Malissa [Ventolin 0.083% Nebulizer Soln -] 1 amp NEB PRN PRN 01/16/18 Amlodipine Besylate [Norvasc -] 5 mg PO DAILY 01/16/18 Fluticasone Prop 0.05% Nasal [Flonase -] 2 spray NS DAILY PRN 01/16/18 Gabapentin 100 mg PO TID 01/16/18 Sodium Chloride 1,000 mg MC DAILY 01/16/18 Trospium Chloride [Trospium Chloride ER] 20 mg PO DAILY 01/16/18 Anemia: No Asthma: No Cancer: Yes (Tongue and throat CA 2010) Cardiac Disorders: No CVA: No COPD: No CHF: No Dementia: No Diabetes: No GI Disorders: Yes (GERD) Disorders: (BPH) HTN: Yes (and hypotension) Hypercholesterolemia: Yes Liver Disease: No Seizures: No Thyroid Disease: Yes (hypo) - Surgical History Abdominal Surgery: No Appendectomy: No Cardiac Surgery: No Cholecystectomy: No GI Surgery: Yes (G tube) Lung Surgery: No Neurologic Surgery: No Orthopedic Surgery: Yes - Immunization History Immunization Up to Date: Yes - Suicide/Smoking/Psychosocial Hx Smoking History: Never smoked Have you smoked in the past 12 months: No Information on smoking cessation initiated: No Hx Alcohol Use: No Drug/Substance Use Hx: No Substance Use Type: None Hx Substance Use Treatment: No Review of Systems - Review of Systems Comments:: Constitutional: +fever, +chills HEENT: no throat pain, no dysphagia Cardiovascular: no chest pain, no palpitations Respiratory: +cough, no shortness of breath Gastrointestinal: no abdominal pain, no nausea, no vomiting Genitourinary: no dysuria, no frequency Musculoskeletal: no myalgia, no arthralgia Skin: no rash, no itching Neurologic: no headache, no dizziness *Physical Exam - Vital Signs Last Vital Signs Temp Pulse Resp BP Pulse Ox 99.0 F 98 H 18 181/109 H 96 01/16/18 03:36 01/16/18 03:36 01/16/18 03:36 01/16/18 03:36 01/16/18 03:36 - Physical Exam Comments: General: Awake, alert, and fully oriented, in no acute distress Head: No signs of trauma Eyes: EOMI, sclera anicteric ENT: Moist mucus membranes Neck: Normal ROM, supple Lungs: Crackles present at right lower lung base Cardio: Regular rhythm, S1 and S2 present Abdomen: Soft, nontender. PEG tube in place Extremities: Normal range of motion, Distal pulses present SKIN: Warm, Dry, normal turgor Neurologic: Cranial nerves II through XII grossly intact. Normal speech ED Treatment Course - LABORATORY CBC & Chemistry Diagram: 01/16/18 04:45 01/16/18 04:40 Medical Decision Making - Medical Decision Making 72yo M with PMH of labile htn, bph, gerd, hypothyroid, hld, cardiac stenosis, renal insufficiency, aspiration pneumonia presenting with fever and chills. -WBC=7.2, Tpn negative -CXR shows bilateral infiltrates (my impression) suggestive of pneumonia -Will treat with levaquin 750 01/16/18 06:42 Plan to admit 01/16/18 06:50 Discussed case with inpatient team who accepted patient for admission under attending, Dr. Fenton *DC/Admit/Observation/Transfer Diagnosis at time of Disposition: Pneumonia - Discharge Dispostion Condition at time of disposition: Guarded Decision to Admit order: Yes - Referrals - Patient Instructions - Post Discharge Activity
[2018-01-16 05:06] LABS: BASO % 0.5 % (0-2.0); EOS % 2.1 % (0-4.5); HEMATOCRIT 32.6 % (35.4-49); HEMOGLOBIN 10.5 GM/dL (11.7-16.9); LYMPH % 9.9 % (8-40); MCH 26.7 pg (25.7-33.7); MCHC 32.3 g/dl (32.0-35.9); MEAN CELL VOLUME 82.9 fl (80-96); MONO % 6.5 % (3.8-10.2); PLATELET COUNT 217 K/MM3 (134-434); RBC 3.93 M/mm3 (4.00-5.60); RDW 14.8 % (11.9-15.9); WHITE BLOOD COUNT 7.2 K/mm3 (4.0-10.0)
[2018-01-16] MEDS ORDERED: MIDODRINE HCL 5 MG TABLET PO ONE (05:14)
[2018-01-16 05:23] LABS: ALBUMIN 3.2 g/dl (3.4-5.0); ALK PHOS 65 U/L (45-117); ANION GAP 6 MMOL/L (8-16); BILIRUBIN,TOTAL 0.4 mg/dL (0.2-1); BLOOD UREA NITROGEN 26 mg/dL (7-18); CALCIUM 8.6 mg/dL (8.5-10.1); CHLORIDE 104 mmol/L (98-107); CO2 29 mmol/L (21-32); CREATININE 0.8 mg/dL (0.55-1.3); GLUCOSE,RANDOM 113 mg/dL (74-106); MAGNESIUM 1.8 mg/dL (1.8-2.4); POTASSIUM 3.7 mmol/L (3.5-5.1); SGOT/AST 9 U/L (15-37); SGPT/ALT 13 U/L (13-61); SODIUM 140 mmol/L (136-145); TOT PROT 6.7 g/dl (6.4-8.2)
[2018-01-16] MEDS ORDERED: ACETAMINOPHEN 1000 MG/100 ML VIAL (NON FORMULARY) IVPB ONE ×2 (06:02→06:33)
--- NOTE | 2018-01-16 06:02 | PDOC ---
Attending Attestation - Resident Resident Name: Keren Koenig - ED Attending Attestation I have performed the following: I have examined & evaluated the patient, The case was reviewed & discussed with the resident, I agree w/resident's findings & plan - HPI HPI: 01/16/18 05:57 72-year-old male with history of pharyngeal CA status post radiation therapy complicated by autonomic stability with labile blood pressures, occasionally symptomatic with lightheadedness, also complicated by chronic dysphasia with aspiration pneumonia in the past presents now with episode of being unable to stand and prolonged dizziness. activated EMS, was noted to have elevated blood pressures on arrival, here with continued dizziness initially very hypertensive and then became very hypotensive, with lows at 70/40. All of this is not unusual for the patient, and is typical of his underlying syndrome. He treats his hypertension with amlodipine, treats his prolonged hypotension with Midrin. Has chronic cough, denies any lung pain, denies any change in his cough but reports low-grade temp of 99 at home this evening. - Physicial Exam PE: 01/16/18 05:59 On my examination, blood pressure 72/49 Patient is seated comfortably in stretcher speaking full sentences, no acute distress, conversant and pleasant Heart is regular Slightly decreased breath sounds at the right base, otherwise clear without crackles or wheezing Abdomen is soft Neurologically intact - Medical Decision Making 01/16/18 06:00 72-year-old male with history of autonomic instability presents with persistent generalized weakness and dizziness in the setting of his usual labile blood pressures, also with low-grade fever at home. Presentation could be patient's baseline underlying pathology, rule out acute process such as infection. Labs EKG, chest x-ray Given several descending blood pressure readings with most recent of 70/40, patient states this is past his threshold for taking the Midrin, so we'll dose here and follow-up symptoms Reassess 01/16/18 06:37 no leukocytosis, chem wnl cxr with RLL haziness concerning for pna, particularly aspiration given the hx. although bp instability appears to be 2/2 pt's baseline, will admit for further monitoring given superimposed pneumonia and infection. sepsis protocol initiated, will give IV abx [facility] covering [place] Heart Score/ECG Review #1 ECG reviewed & interpreted by me at: 04:03 General ECG Interpretation: Sinus Rhythm (apc noted), Normal Rate (93), Normal Intervals (qtc 469), No acute ischemic changes Compared to previous ECG there are: No significant change (c/w 09/26/17)
[2018-01-16] MEDS ORDERED: ACETAMINOPHEN INJECTION 100 ML IVPB ONE (06:17)
--- NOTE | 2018-01-16 07:36 | EKG ---
Test Reason : Blood Pressure : / mmHG Vent. Rate : 093 BPM Atrial Rate : 093 BPM P-R Int : 168 ms QRS Dur : 088 ms QT Int : 378 ms P-R-T Axes : 043 016 059 degrees QTc Int : 469 ms SINUS RHYTHM WITH PREMATURE ATRIAL COMPLEXES WHEN COMPARED WITH ECG OF 26-SEP-2017 16:12, PREMATURE ATRIAL COMPLEXES ARE NOW PRESENT NONSPECIFIC T WAVE ABNORMALITY NO LONGER EVIDENT IN LATERAL LEADS Confirmed by ANDREW LAI MD ([id number]) on 01/16/2018 7:36:44 AM Referred By: Confirmed By:ANDREW LAI MD
--- NOTE | 2018-01-16 09:57 | HP ---
Admitting History and Physical - Primary Care Physician PCP: Fern Murillo - Admission Chief Complaint: came in for fever and high BP History of Present Illness: 72-year-old male with history of pharyngeal CA status post radiation therapy complicated by autonomic stability with labile blood pressures, occasionally symptomatic with lightheadedness, also complicated by chronic dysphagia with aspiration pneumonia in the past presents now with episode of being unable to stand and prolonged dizziness. activated EMS, was noted to have elevated blood pressures on arrival, here with continued dizziness initially very hypertensive and then became very hypotensive, with lows at 70/40. All of this is not unusual for the patient, and is typical of his underlying syndrome. He treats his hypertension with amlodipine, treats his prolonged hypotension with Midodrin. Has chronic cough, denies any lung pain, denies any change in his cough but reports low-grade temp of 99 at home this evening. in ER temp 100.1 levaquin and midodrine in ER per patient he says he had fever at home and then his BP was elevated. 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[employer] , [employer] History of Recent Travel: No Home Medications - Allergies Allergies/Adverse Reactions: Allergies Allergy/AdvReac Type Severity Reaction Status Date / Time tamsulosin HCl [From Flomax] AdvReac Intermediate dizziness Verified 01/16/18 03 :35 - Home Medications Home Medications: Ambulatory Orders Aspirin [ASA -] 81 mg PO DAILY 10/20/15 Cholecalciferol (Vitamin D3) [Vitamin D3] 2,000 unit PO DAILY 10/20/15 Cyanocobalamin (Vitamin B-12) [Vitamin B-12] 1,000 mcg PO DAILY 10/20/15 Levothyroxine Sodium [Unithroid] 125 mcg PO DAILY 10/20/15 Rosuvastatin Calcium [Crestor] 10 mg PO HS 10/20/15 Acetaminophen [Tylenol .Regular Strength -] 650 mg PO Q6H PRN tablet 07/06/17 Midodrine HCl [Proamatine -] 5 mg PO BID-MID PRN #60 tablet 07/06/17 Albuterol 0.083% Nebulizer Malissa [Ventolin 0.083% Nebulizer Soln -] 1 amp NEB PRN PRN 01/16/18 Amlodipine Besylate [Norvasc -] 5 mg PO DAILY 01/16/18 Fluticasone Prop 0.05% Nasal [Flonase -] 2 spray NS DAILY PRN 01/16/18 Gabapentin 100 mg PO TID 01/16/18 Sodium Chloride 1,000 mg MC DAILY 01/16/18 Trospium Chloride [Trospium Chloride ER] 20 mg PO DAILY 01/16/18 Family Disease History - Family Disease History Family Disease History: CA: Father (G-E junction tumor), Mother (lung ca), Sister (breast ca), Other: Brother (goiter surgery) Review of Systems - Review of Systems Neck: reports: No Symptoms Cardiovascular: reports: No Symptoms Respiratory: reports: No Symptoms Physical Examination Vital Signs: Vital Signs Temperature 100.1 F H 01/16/18 05:56 Pulse Rate 83 01/16/18 07:00 Respiratory Rate 19 01/16/18 07:00 Blood Pressure 118/79 01/16/18 07:00 O2 Sat by Pulse Oximetry (%) 99 01/16/18 07:00 Constitutional: Yes: Calm Cardiovascular: Yes: Regular Rate and Rhythm, S1, S2 Respiratory: Yes: On Nasal O2, Other (crackles on right side) Gastrointestinal: Yes: Normal Bowel Sounds, Soft, Other ( g tube) Edema: No Integumentary: Yes: Other (variagated pigmented lesion on the back) Neurological: Yes: Alert, Oriented Labs: CBC, BMP 01/16/18 04:45 01/16/18 04:40 Imaging - Results Chest X-ray: Report Reviewed (bibasilar changes), Image Reviewed Problem List - Problems (1) PNA (pneumonia) Assessment/Plan: kevin aponte regarding po food ID and pulm consult Code(s): J18.9 - PNEUMONIA, UNSPECIFIED ORGANISM (2) Autonomic postural hypotension Assessment/Plan: autonomic 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 midodrine BID neuro dr moore PT telemetry Code(s): I95.1 - ORTHOSTATIC HYPOTENSION (3) HLD (hyperlipidemia) Assessment/Plan: statin lipid profile Code(s): E78.5 - HYPERLIPIDEMIA, UNSPECIFIED Qualifiers: Hyperlipidemia type: pure hypercholesterolemia Qualified Code(s): E78.00 - Pure hypercholesterolemia, unspecified; E78.0 - Pure hypercholesterolemia (4) Hypothyroid Assessment/Plan: synthroid check tsh Code(s): E03.9 - HYPOTHYROIDISM, UNSPECIFIED Qualifiers: Hypothyroidism type: unspecified Qualified Code(s): E03.9 - Hypothyroidism , unspecified (5) Dizziness Assessment/Plan: PT eval, neurology telemetry Code(s): R42 - DIZZINESS AND GIDDINESS (6) CAD (coronary artery disease) Assessment/Plan: asprin and statin Code(s): I25.10 - ATHSCL HEART DISEASE OF [place] CORONARY ARTERY W/O ANG PCTRS
[2018-01-16] MEDS: MIDODRINE HCL 5 MG TABLET PO SCH ×2 (10:53→19:27)
--- NOTE | 2018-01-16 11:56 | CONSULT ---
Admitting History and Physical - Primary Care Physician PCP: Jyoti Flores - Admission History of Present Illness: Per EMR: 72-year-old male with history of pharyngeal CA status post radiation therapy complicated by autonomic stability with labile blood pressures, occasionally symptomatic with lightheadedness, also complicated by chronic dysphagia with aspiration pneumonia in the past presents now with episode of being unable to stand and prolonged dizziness. activated EMS, was noted to have elevated blood pressures on arrival, here with continued dizziness initially very hypertensive and then became very hypotensive, with lows at 70/40. All of this is not unusual for the patient, and is typical of his underlying syndrome. He treats his hypertension with amlodipine, treats his prolonged hypotension with Midodrin. Has chronic cough, denies any lung pain, denies any change in his cough but reports low-grade temp of 99 at home this evening. in ER temp 100.1 Pneumonia Autonomic postural hypotension-autonomic 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 Pt seen by me in July 2017 for 2 MBS with intermittent silent aspiration on nectar and honey thick liquid. Aspiration eliminated with chin tuck, breath hold technique. Follow through with compensatory strategies was inconsistent and unreliable. With coaching, he was successful in protecting his airway.I felt he was fairly safe with puree independently butr not with liquids. PEG inserted, with intention of continueing puree, hydrating though PEG and supplemental nutrition though PEG. Pt was referred for OPD swallowing tx which he received at [facility]. Per pt, after d/c, he was NPO,received swallowing exercises at [facility] but he no longer ate by mouth. He said he "cheated sometimes and coughed, even on water!" He reports repeating MBS at [facility] and "failed" and was told not to eat or drink. 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 , 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 History of Recent Travel: No History - Admission Reason For Visit: DIZZINESS - Diagnostics X-ray: Report Reviewed (bibasilar changes) - General Mental Status: Alert and Oriented, Awake and Alert, Able to Follow Commands Attention: Intact Ability to Follow Directions: Good Head/Neck Control: WFL - Hearing Hearing: Functional Speech Evaluation - Communication Primary Language: UPPER SORBI[place] Communication: Yes: Within Normal Limits Oral Expression Ability: Yes: No Impairment - Speech Production Able to Make Needs Known: Yes: WNL Intelligibility: Yes: WNL - Speech Characteristics Voice Loudness: Normal Voice Pitch: Yes: Normal Voice Phonatory-based Quality: Yes: Normal Speech Pattern: Normal Speech Clarity: < 100% Nasal Resonance: Normal Articulation: Yes: Precise Rate of Speech: Intact - Language/Auditory Comprehension Follows: Yes: 2 Stage Simple Commands - Language/Verbal Expression Able to Respond to Simple Queries: Yes: WNL Able to Communicate Wants and Needs: Yes: WNL Functional Communication Status: Yes: WNL - Swallow Evaluation/Bedside Assessment Current Nutritional Intake: NPO, G Tube Oral Secretions: Yes: WFL Dentition: Yes: Adequate Facial Symmetry at Rest: Symmetrical Facial Symmetry on Retraction: Symmetrical Sensation: Normal Against Resistance Opening: Normal Against Resistance Closing: Normal Pucker Lips: Normal Smile: Normal Lingual Movement: Normal, Symmetric Lingual Speed of Movement: Normal Lingual Movement Strgth Against Opposition: Normal Lingual Movement Characteristics: Normal Velopharyngeal Movement: Normal Recommendations - Speech Evaluation, Impression/Plan Impression: PO trials not given. When last seen in July 2017, pt demonstrated intermittent aspiration on liquids. Pt received PEG. Pt d/c'd and received swallowing tx but has been NPO since July. Although I believe pt may have had potential for some safe PO intake, with modified diet, it was crucial that he used compensatory strategies which he did not seem to be able to do consistently.Pt requires PEG feedings for nutrition , hydration and medication. Pt does not want repeat MBS, "I have given up on eating." - Dysphagia Impressions/Plan Swallowing Skills: Impaired Dysphagia Impressions: Severe Impairment, Suspect Aspiration *Silent aspiration: cannot be R/O at bedside Recommendations: Other (GT feeding)
--- NOTE | 2018-01-16 15:05 | PN ---
Progress Note (short form) - Note Progress Note: PULMONARY CONSULTATION DICTATED 01/16/18 IMP PNEUMONIA LIKELY ASPIRATION AUTONOMIC DYSFUNCTION LABILE BP DIZZINESS H/O PHARYNGEAL CA S/P RT ANEMIA DM PLAN ABX O2 INHALED BRONCHODILATORS SPUTUM C+S F/U CHEST X-RAYS MONITOR BP DR UMANA Problem List - Problems (1) CAD (coronary artery disease) Code(s): I25.10 - ATHSCL HEART DISEASE OF [place] CORONARY ARTERY W/O ANG PCTRS (2) Dizziness Code(s): R42 - DIZZINESS AND GIDDINESS (3) PNA (pneumonia) Code(s): J18.9 - PNEUMONIA, UNSPECIFIED ORGANISM (4) Aspiration pneumonia Code(s): J69.0 - PNEUMONITIS DUE TO INHALATION OF FOOD AND VOMIT (5) Autonomic postural hypotension Code(s): I95.1 - ORTHOSTATIC HYPOTENSION (6) Benign prostatic hypertrophy Code(s): N40.0 - BENIGN PROSTATIC HYPERPLASIA WITHOUT LOWER URINRY TRACT SYMP (7) History of throat cancer Code(s): Z85.819 - PRSNL HX OF MALIG NEOPLM OF UNSP SITE LIP,ORAL CAV,& PHARYNX (8) Orthostatic hypotension Code(s): I95.1 - ORTHOSTATIC HYPOTENSION
[2018-01-16] MEDS ORDERED: ALBUTEROL SO4 2.5/IPRATROPIUM 0.5 INH SOL 3 ML VIAL.NEB. NEB PRN (15:06)
--- NOTE | 2018-01-16 15:35 | CON.CARD ---
Consult Consult Specialty:: Cardiology Referred by:: Dr. Montes Reason for Consultation:: Labile HTN - History of Present Illness Chief Complaint: Fevers, cough History of Present Illness: Patient is a 72 year old male with a significant past medical history of HTN, HLD, hypothyroid, neuropathy (chemo induced?), tongue and throat CA s/p radiation therapy with resulting hypothyroid state, c-spine and carotid baroreceptor autonomic dysfunction secondary to radiation therapy damage with labile blood pressures, chronic aspiration and dysphagia post PEG tube admitted for fevers, chills, cough without chest discomfort, dyspnea, near or true syncope, palpitations, orthopnea, PND or LE edema. He is being treated for aspiration PNA, BP remains labile. Last seen in office 01/01/2018. - History Source History Provided By: Patient Limitations to Obtaining History: No Limitations - Past Medical History Cardio/Vascular: Yes: HTN, Hyperlipdemia, Other (Autonomic dysfunction with orthostatic hypotension) Pulmonary: Yes: Pneumonia, Other (aspiration) Renal/: Yes: BPH ENT: Yes: Other (head and neck CA) Endocrine: Yes: Diabetes Mellitus, Hypothyroidism - Alcohol/Substance Use Hx Alcohol Use: No History of Substance Use: reports: None - Smoking History Smoking history: Never smoked Have you smoked in the past 12 months: No - Social History Usual Living Arrangement: With Spouse ADL: Independent 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 History of Recent Travel: No Home Medications - Allergies Allergies/Adverse Reactions: Allergies Allergy/AdvReac Type Severity Reaction Status Date / Time tamsulosin HCl [From Flomax] AdvReac Intermediate dizziness Verified 01/16/18 03 :35 - Home Medications Home Medications: Ambulatory Orders Aspirin [ASA -] 81 mg PO DAILY 10/20/15 Cholecalciferol (Vitamin D3) [Vitamin D3] 2,000 unit PO DAILY 10/20/15 Cyanocobalamin (Vitamin B-12) [Vitamin B-12] 1,000 mcg PO DAILY 10/20/15 Levothyroxine Sodium [Unithroid] 125 mcg PO DAILY 10/20/15 Rosuvastatin Calcium [Crestor] 10 mg PO HS 10/20/15 Acetaminophen [Tylenol .Regular Strength -] 650 mg PO Q6H PRN tablet 07/06/17 Midodrine HCl [Proamatine -] 5 mg PO BID-MID PRN #60 tablet 07/06/17 Albuterol 0.083% Nebulizer Malissa [Ventolin 0.083% Nebulizer Soln -] 1 amp NEB PRN PRN 01/16/18 Amlodipine Besylate [Norvasc -] 5 mg PO DAILY 01/16/18 Fluticasone Prop 0.05% Nasal [Flonase -] 2 spray NS DAILY PRN 01/16/18 Gabapentin 100 mg PO TID 01/16/18 Sodium Chloride 1,000 mg MC DAILY 01/16/18 Trospium Chloride [Trospium Chloride ER] 20 mg PO DAILY 01/16/18 Family Disease History - Family Disease History Family Disease History: CA: Father (G-E junction tumor), Mother (lung ca), Sister (breast ca), Other: Brother (goiter surgery) Review of Systems - Review of Systems Constitutional: reports: Fever Respiratory: reports: Cough, SOB Vital Signs: Vital Signs Temperature 100.1 F H 01/16/18 05:56 Pulse Rate 73 01/16/18 12:50 Respiratory Rate 18 01/16/18 12:50 Blood Pressure 108/70 01/16/18 12:50 O2 Sat by Pulse Oximetry (%) 97 01/16/18 12:50 Constitutional: Yes: No Distress, Calm, Thin Neck: Yes: Supple Respiratory: Yes: Regular, Diminished, On Nasal O2 Gastrointestinal: Yes: Normal Bowel Sounds, Soft, Other (PEG site intact) Cardiovascular: Yes: Regular Rate and Rhythm JVD: No Carotid Bruit: No Heart Sounds: Yes: S1, S2 Edema: No - Other Data Labs, Other Data: CBC, BMP 01/16/18 04:45 01/16/18 04:40 Troponin, BNP 01/16/18 04:40 Troponin I < 0.02 Troponin, BNP 01/16/18 04:40 Troponin I < 0.02 NSR @ 93 PAC Imaging - Results Chest X-ray: Report Reviewed (Bibasilar infiltrates) Problem List - Problems (1) CAD (coronary artery disease) Code(s): I25.10 - ATHSCL HEART DISEASE OF [place] CORONARY ARTERY W/O ANG PCTRS Qualifiers: Coronary Disease-Associated Artery/Lesion type: [place] artery [place] vs. transplanted heart: [place] heart Associated angina: without angina Qualified Code(s): I25.10 - Atherosclerotic heart disease of [place] coronary artery without angina pectoris (2) Aspiration pneumonia Code(s): J69.0 - PNEUMONITIS DUE TO INHALATION OF FOOD AND VOMIT Qualifiers: Laterality: bilateral Lung location: lower lobe of lung (3) Autonomic postural hypotension Code(s): I95.1 - ORTHOSTATIC HYPOTENSION (4) Carotid stenosis Code(s): I65.29 - OCCLUSION AND STENOSIS OF UNSPECIFIED CAROTID ARTERY (5) HLD (hyperlipidemia) Code(s): E78.5 - HYPERLIPIDEMIA, UNSPECIFIED Qualifiers: Hyperlipidemia type: pure hypercholesterolemia Qualified Code(s): E78.00 - Pure hypercholesterolemia, unspecified; E78.0 - Pure hypercholesterolemia (6) History of throat cancer Code(s): Z85.819 - PRSNL HX OF MALIG NEOPLM OF UNSP SITE LIP,ORAL CAV,& PHARYNX (7) Hypothyroid Code(s): E03.9 - HYPOTHYROIDISM, UNSPECIFIED Qualifiers: Hypothyroidism type: unspecified Qualified Code(s): E03.9 - Hypothyroidism , unspecified (8) Labile hypertension Code(s): I10 - ESSENTIAL (PRIMARY) HYPERTENSION (9) Orthostatic hypotension Code(s): I95.1 - ORTHOSTATIC HYPOTENSION Assessment/Plan Holter: SR freq PAC Echo: 07/04/2017 Echo: Normal LV and RV size and fxn, mild LAE, mild AR Lexisan Myoview: 01/31/2016 No ischemia, LVEF 67% 1. Aspiration Pneumonia with chronic aspiration and dysphagia post PEG 2. 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 Non-obstructive CAD, angina pectoris 3. Hyperlipidemia 4. Hypothyroidism 5. Benign prostatic hypertrophy PLAN: 1. Continue Norvasc 5 qd and Midodrine 5 bid prn SBP<90 mmHg. Continue ASA 81 qd and Crestor 20 qhs 2. Continue empiric antibiotic course and Supplemental O2 as needed 3. Enteral feeds and DVT prophylaxiss 4. Consider trial of treatment with Northera (a new agent for neurogenic orthostatic hypotension) 5. Nutrition via PEG 6. Thank you for consultative opportunity
[2018-01-16] MEDS ORDERED: GABAPENTIN 100 MG CAPSULE (FP) ONE (16:03)
--- NOTE | 2018-01-16 16:41 | PN ---
Progress Note (short form) - Note Progress Note: ID Consult dictated Probable aspiration RLL pneumonia Possible sepsis secondary to pneumonia Hx laryngeal ca in remission Await c/s Obtain sputum c/s, legionella/pneumococcal ag Influenza swab Empiric zosyn
--- NOTE | 2018-01-16 18:14 | CONS ---
DATE OF CONSULTATION: 01/16/2018 HISTORY OF PRESENT ILLNESS: The patient is a 72-year-old male with a history of laryngeal cancer in remission, evaluated for pneumonia. He presents with the onset of chills and high-grade fever at home. He reports fever as high as 102.3. He has had an increased cough. The patient states that he has had a chronic cough since July of this year when he was treated for pneumonia. He reports that over the past several days, he has had increased sputum production which has gone from whitish to yellowish in color. He denies any hemoptysis, dyspnea or chest pain. A chest x-ray shows increased markings at the bases bilaterally. He has a history of laryngeal cancer status post radiation and chemotherapy in 2010. He has been in remission. He has a feeding gastrostomy and takes nothing by mouth. He has had no known ill contacts. His is well. He is a lifelong nonsmoker. No recent travel or significant pet exposure. No hospitalization since spring of this year. He has received influenza and pneumococcal vaccines. The patient has had labile blood pressure with systolic blood pressures dropping into the 70s. PAST MEDICAL HISTORY: Positive for labile blood pressure secondary to autonomic dysfunction, benign prostatic hypertrophy, gastroesophageal reflux, hypothyroidism, hyperlipidemia, chronic kidney disease, autonomic dysfunction, laryngeal cancer. ALLERGIES: FLOMAX. MEDICATIONS: Aspirin, levothyroxine, Crestor, Norvasc, Neurontin. SOCIAL HISTORY: He resides at home with his . He reports being a lifelong nonsmoker. He is a nondrinker. REVIEW OF SYSTEMS: Neurologic: No loss of consciousness, seizure activity or focal weakness. Cardiac: Negative for chest pain or palpitations. Respiratory: As per HPI. Gastrointestinal: Positive for feeding gastrostomy. Genitourinary: Negative for urinary tract infection. LABORATORY DATA: White count 7.2, hematocrit 32.6, platelet count 217, creatinine 0.8. Blood cultures are pending. PHYSICAL EXAMINATION: General: The patient is a thin male in no acute respiratory distress. He appears comfortable at rest on nasal cannula O2. Vital Signs: Temperature 100.1, blood pressure 108/70, pulse 73 and regular, respiratory rate 18 per minute. HEENT: Sclerae anicteric. Neck: Supple. Heart: Heart sounds S1, S2. Lungs: Rales at the bases bilaterally. Abdomen: Soft. No tenderness elicited. No masses, rebound or rigidity. A feeding gastrostomy tube is in place. No erythema or tenderness. Extremities: Negative for edema. IMPRESSION: 1. Probable aspiration/right lower lobe pneumonia. 2. Positive sepsis secondary to pneumonia. 3. History of laryngeal cancer. PLAN: 1. Will await cultures. 2. Obtain sputum culture and urine Legionella/pneumococcal antigens, influenza swab. 3. Empiric antibiotic coverage with Zosyn 3.375 grams IV piggyback every 8 hours. 4. Would hold macrolides or quinolones in light of prolonged QT interval of 469. The case was discussed with the patient's present at the time of the examination. Thank you for the kind referral. ANDREW TURNER M.D. [id number]
[2018-01-16] MEDS: GABAPENTIN 100 MG CAPSULE (FP) PO SCH ×2 (19:27→23:55)
[2018-01-16] MEDS ORDERED: PIPERACILLIN/TAZOB 3.375 GM 3.375 GM/50 ML BAG IVPB ONE (19:32)
[2018-01-16] MEDS: PIPERACILLIN/TAZOB 3.375 GM 3.375 GM in DEXTROSE 5%-WATER - 50 ML IVPB SCH (19:57)
[2018-01-16] MEDS ORDERED: ROSUVASTATIN CA 10 MG TABLET (FP) PO SCH (22:00)
[2018-01-17] MEDS: HEPARIN NA (PORCINE) 5,000 UNITS/ML 1ML VIAL SQ SCH ×3 (00:08→21:59)
[2018-01-17] MEDS: ROSUVASTATIN CA 10 MG TABLET (FP) PO SCH ×2 (00:08→21:59)
[2018-01-17] MEDS ORDERED: PIPERACILLIN/TAZOBACTAM 3.375 GM VIAL IVPB ONE ×3 (01:23→17:53)
[2018-01-17] MEDS ORDERED: DEXTROSE 5%-WATER - 50 ML IVPB ONE ×3 (01:23→17:54)
[2018-01-17] MEDS: PIPERACILLIN/TAZOB 3.375 GM 3.375 GM in DEXTROSE 5%-WATER - 50 ML IVPB SCH ×3 (01:48→18:00)
[2018-01-17 03:28] VITALS: BMI 25.0
[2018-01-17] MEDS: LEVOTHYROXINE NA 125 MCG TABLET (FP) PO SCH (06:06)
[2018-01-17] MEDS: GABAPENTIN 100 MG CAPSULE (FP) PO SCH ×3 (06:06→21:59)
[2018-01-17 07:49] LABS: HEMATOCRIT 34.7 % (35.4-49); HEMOGLOBIN 11.3 GM/dL (11.7-16.9); MCH 26.9 pg (25.7-33.7); MCHC 32.6 g/dl (32.0-35.9); MEAN CELL VOLUME 82.6 fl (80-96); PLATELET COUNT 215 K/MM3 (134-434); RBC 4.19 M/mm3 (4.00-5.60); RDW 14.6 % (11.9-15.9); WHITE BLOOD COUNT 6.4 K/mm3 (4.0-10.0)
[2018-01-17 08:27] LABS: ALBUMIN 3.1 g/dl (3.4-5.0); ALK PHOS 67 U/L (45-117); ANION GAP 8 MMOL/L (8-16); BILIRUBIN,TOTAL 0.4 mg/dL (0.2-1); BLOOD UREA NITROGEN 19 mg/dL (7-18); CALCIUM 8.8 mg/dL (8.5-10.1); CHLORIDE 101 mmol/L (98-107); CHOLESTEROL 90 mg/dL (50-200); CO2 32 mmol/L (21-32); CREATININE 0.7 mg/dL (0.55-1.3); GLUCOSE,RANDOM 87 mg/dL (74-106); HDL CHOLESTEROL 48 mg/dL (40-60); MAGNESIUM 2.1 mg/dL (1.8-2.4); PHOSPHOROUS 3.7 mg/dL (2.5-4.9); POTASSIUM 3.8 mmol/L (3.5-5.1); SGOT/AST 10 U/L (15-37); SGPT/ALT 14 U/L (13-61); SODIUM 141 mmol/L (136-145); TOT PROT 6.8 g/dl (6.4-8.2); TRIGLYCERIDES 72 mg/dL (0-150)
--- NOTE | 2018-01-17 08:44 | PN ---
Progress Note, Physician Chief Complaint: Dizziness Aspiration Pneumonia History of Present Illness: NAD Feeling better CXR- New Bibasilar changes Febrile on admission afebrile overnight Being treated with IV abx, seen by ID HAD A REPEAT MODIFIED BARIUM SWALLOW AT [place], WHICH SHOWED THAT PATIENT ASPIRATED DURING SWALLOW WITH NO COUGH RESPONSE WHEN GIVEN LIQUID BOLUS TRIALS. IT WAS THEREFORE CONCLUDED THAT PATIENT HAS SEVERE PHARYNGEAL STAGE DYSPHAGIA, IS AT HIGH RISK FOR ASPIRATION WITH ORAL FEEDS AND HAS SIGNIFICANT BOLUS TRANSPORT ISSUES SECONDARY TO LATE RADIATION ASSOCIATED DYSPHAGIA AND IS NOT EMENDABLE TO THERAPEUTIC INTERVENTION WHICH IS NOT REVERSIBLE DESPITE SPEECH THERAPY OUTPATIENT. (COPY IN CHART) - Current Medication List Current Medications: Active Medications Albuterol/Ipratropium (Duoneb -) 1 amp NEB Q4H PRN PRN Reason: SHORTNESS OF BREATH Amlodipine Besylate (Norvasc -) 5 mg PO DAILY [facility] Aspirin (Asa -) 81 mg PO DAILY [facility] Gabapentin (Neurontin -) 100 mg PO TID [facility] Last Admin: 01/17/18 06:06 Dose: 100 mg Heparin Sodium (Porcine) (Heparin -) 5,000 unit SQ BID [facility] Last Admin: 01/17/18 00:08 Dose: 5,000 unit Piperacillin Sod/Tazobactam (Sod 3.375 gm/ Dextrose) 50 mls @ 100 mls/hr IVPB Q8H-IV [facility]; Protocol Last Admin: 01/17/18 01:48 Dose: 100 mls/hr Levothyroxine Sodium (Synthroid -) 125 mcg PO DAILY@0700 [facility] Last Admin: 01/17/18 06:06 Dose: 125 mcg Midodrine (Proamatine -) 5 mg PO BID-MID [facility] Last Admin: 01/16/18 19:27 Dose: Not Given Rosuvastatin Calcium (Crestor -) 20 mg PO HS [facility] Last Admin: 01/17/18 00:08 Dose: 20 mg - Objective Vital Signs: Vital Signs Temperature 97.5 F L 01/17/18 05:00 Pulse Rate 78 01/17/18 05:00 Respiratory Rate 17 01/17/18 05:00 Blood Pressure 154/103 H 01/17/18 05:00 O2 Sat by Pulse Oximetry (%) 98 01/16/18 22:30 Constitutional: Yes: Well Nourished, No Distress, Calm Cardiovascular: Yes: Regular Rate and Rhythm Respiratory: Yes: Regular, Rales (BLL) Musculoskeletal: Yes: WNL Extremities: Yes: WNL Edema: No Peripheral Pulses WNL: Yes Neurological: Yes: Alert, Oriented Psychiatric: Yes: Alert, Oriented Labs: CBC, BMP 01/17/18 05:30 01/17/18 05:30 Problem List - Problems (1) Aspiration pneumonia Assessment/Plan: -NPO except meds -CXR-Bibasilar changes -Nasal O2 PRN -Bronchodilators -Pulmonary and ID consult -Also seen by PUBLIC HEALTH TECHNOLOGIST -Repeat MBS not indicated at this time -On IV Zosyn 3.375 Q8H -Legionella culture pending Code(s): J69.0 - PNEUMONITIS DUE TO INHALATION OF FOOD AND VOMIT Qualifiers: Laterality: bilateral Lung location: lower lobe of lung (2) Autonomic postural hypotension Assessment/Plan: -Seen by Cardiology -Chronic -Maintains pressure with midodrine and amlodipine -Compression stockings Code(s): I95.1 - ORTHOSTATIC HYPOTENSION (3) History of throat cancer Assessment/Plan: -Has seen ENT [facility] Code(s): Z85.819 - PRSNL HX OF MALIG NEOPLM OF UNSP SITE LIP,ORAL CAV,& PHARYNX Assessment/Plan see problem list Physical therapy DVT prophylaxis
--- NOTE | 2018-01-17 09:19 | PN ---
Progress Note, Physician Chief Complaint: Events noted Not in distress History of Present Illness: Patient was seen and examined. Awake and alert. Chart was reviewed Denies chest pain, SOB or palpitations - Current Medication List Current Medications: Active Medications Albuterol/Ipratropium (Duoneb -) 1 amp NEB Q4H PRN PRN Reason: SHORTNESS OF BREATH Amlodipine Besylate (Norvasc -) 5 mg PO DAILY [facility] Aspirin (Asa -) 81 mg PO DAILY [facility] Gabapentin (Neurontin -) 100 mg PO TID [facility] Last Admin: 01/17/18 06:06 Dose: 100 mg Heparin Sodium (Porcine) (Heparin -) 5,000 unit SQ BID [facility] Last Admin: 01/17/18 00:08 Dose: 5,000 unit Piperacillin Sod/Tazobactam (Sod 3.375 gm/ Dextrose) 50 mls @ 100 mls/hr IVPB Q8H-IV [facility]; Protocol Last Admin: 01/17/18 01:48 Dose: 100 mls/hr Levothyroxine Sodium (Synthroid -) 125 mcg PO DAILY@0700 [facility] Last Admin: 01/17/18 06:06 Dose: 125 mcg Midodrine (Proamatine -) 5 mg PO BID-MID [facility] Last Admin: 01/16/18 19:27 Dose: Not Given Rosuvastatin Calcium (Crestor -) 20 mg PO HS [facility] Last Admin: 01/17/18 00:08 Dose: 20 mg - Objective Vital Signs: Vital Signs Temperature 97.6 F 01/17/18 08:57 Pulse Rate 68 01/17/18 08:57 Respiratory Rate 18 01/17/18 08:57 Blood Pressure 98/58 L 01/17/18 08:57 O2 Sat by Pulse Oximetry (%) 96 01/17/18 08:57 Eyes: Yes: PERRL HENT: Yes: Atraumatic Neck: Yes: Supple Cardiovascular: Yes: Regular Rate and Rhythm, S1, S2 Respiratory: Yes: CTA Bilaterally Gastrointestinal: Yes: Normal Bowel Sounds, Soft, Other (PEG) Edema: No Additional Findings/Remarks: Review of Systems Cardiovascular: denies: chest pain, SOB, palpitations Respiratory: denies: denies: Cough or Sputum Production Gastrointestinal: denies: Nausea, Vomiting, Diarrhea, Constipation or Abdominal Discomfort Musculoskeletal: denies: joint pains Endocrine: No Symptoms Reported Neuro: denies syncope, seizures Labs: CBC, BMP 01/17/18 05:30 01/17/18 05:30 Problem List - Problems (1) CAD (coronary artery disease) Code(s): I25.10 - ATHSCL HEART DISEASE OF [place] CORONARY ARTERY W/O ANG PCTRS Qualifiers: Coronary Disease-Associated Artery/Lesion type: [place] artery [place] vs. transplanted heart: [place] heart Associated angina: without angina Qualified Code(s): I25.10 - Atherosclerotic heart disease of [place] coronary artery without angina pectoris (2) PNA (pneumonia) Code(s): J18.9 - PNEUMONIA, UNSPECIFIED ORGANISM Qualifiers: Pneumonia type: aspiration pneumonia (3) Aspiration pneumonia Code(s): J69.0 - PNEUMONITIS DUE TO INHALATION OF FOOD AND VOMIT Qualifiers: Laterality: bilateral Lung location: lower lobe of lung (4) Autonomic postural hypotension Code(s): I95.1 - ORTHOSTATIC HYPOTENSION (5) Benign prostatic hypertrophy Code(s): N40.0 - BENIGN PROSTATIC HYPERPLASIA WITHOUT LOWER URINRY TRACT SYMP (6) Carotid stenosis Code(s): I65.29 - OCCLUSION AND STENOSIS OF UNSPECIFIED CAROTID ARTERY (7) HLD (hyperlipidemia) Code(s): E78.5 - HYPERLIPIDEMIA, UNSPECIFIED Qualifiers: Hyperlipidemia type: pure hypercholesterolemia Qualified Code(s): E78.00 - Pure hypercholesterolemia, unspecified; E78.0 - Pure hypercholesterolemia (8) HTN (hypertension) Code(s): I10 - ESSENTIAL (PRIMARY) HYPERTENSION Qualifiers: Hypertension type: essential hypertension Qualified Code(s): I10 - Essential (primary) hypertension (9) Hypothyroid Code(s): E03.9 - HYPOTHYROIDISM, UNSPECIFIED Qualifiers: Hypothyroidism type: unspecified Qualified Code(s): E03.9 - Hypothyroidism , unspecified (10) Orthostatic hypotension Code(s): I95.1 - ORTHOSTATIC HYPOTENSION (11) Renal insufficiency Code(s): N28.9 - DISORDER OF KIDNEY AND URETER, UNSPECIFIED Assessment/Plan 1. Aspiration Pneumonia 2. Recurrent syncope with labile hypertension and intermittent postural hypotension referable to dysautonomia 3. 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 Non-obstructive CAD, angina pectoris 5. Hyperlipidemia 6. Hypothyroidism 7. Benign prostatic hypertrophy PLAN: 1. Continue Norvasc 5 QD and Midodrine 5 BID as needed. Continue ASA 81 QD and Crestor 20 QHS 2. Continue empiric antibiotic course 3. Enteral feeds via PEG 4. Consider trial of treatment with Northera (a new agent for neurogenic orthostatic hypotension) 5. DVT prophylaxis Gutierrez Acevedo MD
[2018-01-17] MEDS ORDERED: PT OWN MED DRAWER 7, Y5N ONE ×4 (09:26→22:16)
[2018-01-17] MEDS: ASPIRIN 81 MG CHEWABLE TABLETS PO SCH (10:37)
[2018-01-17] MEDS: MIDODRINE HCL 5 MG TABLET PO SCH ×2 (10:37→18:30)
[2018-01-17] MEDS: amLODIPine BESYLATE 5 MG TABLET (FP) PO SCH (10:52)
--- NOTE | 2018-01-17 11:17 | CON.NEURO ---
Consult Consult Specialty:: neurology - History of Present Illness Chief Complaint: dizziness History of Present Illness: 72-year-old male with history of pharyngeal CA status post radiation therapy complicated by autonomic stability with labile blood pressures, occasionally symptomatic with lightheadedness, also complicated by chronic dysphagia with aspiration pneumonia in the past presents now with episode of being unable to stand and prolonged dizziness. activated EMS, was noted to have elevated blood pressures on arrival, here with continued dizziness initially very hypertensive and then became very hypotensive, with lows at 70/40. All of this is not unusual for the patient, and is typical of his underlying syndrome. He treats his hypertension with amlodipine, treats his prolonged hypotension with Midodrin. He states that was dx as laryngeal ca in 2010 , s/p chemo and radiation ; he has developed sever autonomic dysfx post XRT , he also c/o numbness of his exts ; he denies any spinning sensation or stroke like symptoms. 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[employer] , [employer] History of Recent Travel: No Home Medications - Allergies Allergies/Adverse Reactions: Allergies Allergy/AdvReac Type Severity Reaction Status Date / Time tamsulosin HCl [From Flomax] AdvReac Intermediate dizziness Verified 01/16/18 03 :35 - Home Medications Home Medications: Ambulatory Orders Aspirin [ASA -] 81 mg PO DAILY 10/20/15 Cholecalciferol (Vitamin D3) [Vitamin D3] 2,000 unit PO DAILY 10/20/15 Cyanocobalamin (Vitamin B-12) [Vitamin B-12] 1,000 mcg PO DAILY 10/20/15 Levothyroxine Sodium [Unithroid] 125 mcg PO DAILY 10/20/15 Rosuvastatin Calcium [Crestor] 10 mg PO HS 10/20/15 Acetaminophen [Tylenol .Regular Strength -] 650 mg PO Q6H PRN tablet 07/06/17 Midodrine HCl [Proamatine -] 5 mg PO BID-MID PRN #60 tablet 07/06/17 Albuterol 0.083% Nebulizer Malissa [Ventolin 0.083% Nebulizer Soln -] 1 amp NEB PRN PRN 01/16/18 Amlodipine Besylate [Norvasc -] 5 mg PO DAILY 01/16/18 Fluticasone Prop 0.05% Nasal [Flonase -] 2 spray NS DAILY PRN 01/16/18 Gabapentin 100 mg PO TID 01/16/18 Sodium Chloride 1,000 mg MC DAILY 01/16/18 Trospium Chloride [Trospium Chloride ER] 20 mg PO DAILY 01/16/18 Family Disease History - Family Disease History Family Disease History: CA: Father (G-E junction tumor), Mother (lung ca), Sister (breast ca), Other: Brother (goiter surgery) Review of Systems - Review of Systems Constitutional: reports: No Symptoms Eyes: reports: No Symptoms Neck: reports: No Symptoms Cardiovascular: reports: No Symptoms Physical Exam-Neuro Vital Signs: Vital Signs Temperature 97.6 F 01/17/18 08:57 Pulse Rate 68 01/17/18 08:57 Respiratory Rate 18 01/17/18 08:57 Blood Pressure 98/58 L 01/17/18 08:57 O2 Sat by Pulse Oximetry (%) 96 01/17/18 08:57 Constitutional: Yes: Well Nourished Neck: Yes: Supple Cardiovascular: Yes: Regular Rate and Rhythm Respiratory: Yes: Regular Musculoskeletal: Yes: WNL Labs: CBC, BMP 01/17/18 05:30 01/17/18 05:30 Problem List - Problems (1) CAD (coronary artery disease) Code(s): I25.10 - ATHSCL HEART DISEASE OF [place] CORONARY ARTERY W/O ANG PCTRS Qualifiers: Coronary Disease-Associated Artery/Lesion type: [place] artery [place] vs. transplanted heart: [place] heart Associated angina: without angina Qualified Code(s): I25.10 - Atherosclerotic heart disease of [place] coronary artery without angina pectoris (2) Dizziness Code(s): R42 - DIZZINESS AND GIDDINESS (3) Aspiration pneumonia Code(s): J69.0 - PNEUMONITIS DUE TO INHALATION OF FOOD AND VOMIT Qualifiers: Laterality: bilateral Lung location: lower lobe of lung (4) Autonomic postural hypotension Code(s): I95.1 - ORTHOSTATIC HYPOTENSION (5) Carotid stenosis Code(s): I65.29 - OCCLUSION AND STENOSIS OF UNSPECIFIED CAROTID ARTERY Assessment/Plan 72-year-old male with history of pharyngeal CA status post radiation therapy complicated by autonomic stability with labile blood pressures, occasionally symptomatic with lightheadedness, also complicated by chronic dysphagia with aspiration pneumonia in the past presents now with episode of being unable to stand and prolonged dizziness. No evidence of central ataxia or stroke like symptoms , no parkinsonism to suggest MSA . His sym is due to Autonomic dysfx and autonomic neuropathy , need to exclude mets . Rec CTH WO MRA brain wo MRA head and neck Elevation of the head of bed at night psodomotor as OP EMG as OP Cardio f/u pt/ot Fall precautions c/w current meds Health maintenance per primary team. Thank you. Librado Zabala MD [phone]
[2018-01-17] MEDS ORDERED: ACETAMINOPHEN 325 MG TABLET (FP) PO PRN (13:38)
--- NOTE | 2018-01-17 14:23 | PN ---
Progress Note (short form) - Note Progress Note: Resting in NAD. Afebrile. No acute events overnight. Intake & Output 01/14/18 01/15/18 01/16/18 01/17/18 23:59 23:59 23:59 23:59 Intake Total 1510 250 Output Total 800 600 Balance 710 -350 Weight 185 lb 0.016 oz Last Vital Signs Temp Pulse Resp BP Pulse Ox 97.6 F 68 18 98/58 L 96 01/17/18 08:57 01/17/18 08:57 01/17/18 08:57 01/17/18 08:57 01/17/18 08:57 Active Medications Acetaminophen (Tylenol -) 650 mg PO Q4H PRN PRN Reason: FEVER Last Admin: 01/17/18 13:43 Dose: 650 mg Albuterol/Ipratropium (Duoneb -) 1 amp NEB Q4H PRN PRN Reason: SHORTNESS OF BREATH Amlodipine Besylate (Norvasc -) 5 mg PO DAILY [facility] Last Admin: 01/17/18 10:52 Dose: Not Given Aspirin (Asa -) 81 mg PO DAILY [facility] Last Admin: 01/17/18 10:37 Dose: 81 mg Gabapentin (Neurontin -) 100 mg PO TID [facility] Last Admin: 01/17/18 13:56 Dose: 100 mg Heparin Sodium (Porcine) (Heparin -) 5,000 unit SQ BID [facility] Last Admin: 01/17/18 10:37 Dose: 5,000 unit Piperacillin Sod/Tazobactam (Sod 3.375 gm/ Dextrose) 50 mls @ 100 mls/hr IVPB Q8H-IV [facility]; Protocol Last Admin: 01/17/18 10:36 Dose: 100 mls/hr Levothyroxine Sodium (Synthroid -) 125 mcg PO DAILY@0700 [facility] Last Admin: 01/17/18 06:06 Dose: 125 mcg Midodrine (Proamatine -) 5 mg PO BID-MID [facility] Last Admin: 01/17/18 10:37 Dose: Not Given Rosuvastatin Calcium (Crestor -) 20 mg PO HS [facility] Last Admin: 01/17/18 00:08 Dose: 20 mg Constitutional: Yes: NAD Cardiovascular: Yes: Regular Rate and Rhythm Respiratory: Yes: Bibasilar rhonchi Musculoskeletal: Yes: WNL Extremities: Yes: WNL Edema: No Peripheral Pulses WNL: Yes Neurological: Yes: Alert, Oriented Psychiatric: Yes: Alert, Oriented Labs: Laboratory Results - last 24 hr 01/17/18 01/17/18 01/17/18 05:30 05:30 10:33 WBC 6.4 RBC 4.19 Hgb 11.3 L Hct 34.7 L MCV 82.6 MCH 26.9 MCHC 32.6 RDW 14.6 Plt Count 215 MPV 8.0 Sodium 141 Potassium 3.8 Chloride 101 Carbon Dioxide 32 Anion Gap 8 BUN 19 H Creatinine 0.7 Creat Clearance w eGFR > 60 Random Glucose 87 Calcium 8.8 Phosphorus 3.7 Magnesium 2.1 Ferritin 200.7 Total Bilirubin 0.4 AST 10 L ALT 14 Alkaline Phosphatase 67 Creatine Kinase 29 Troponin I < 0.02 Total Protein 6.8 Albumin 3.1 L Triglycerides 72 Cholesterol 90 Total LDL Cholesterol 37 HDL Cholesterol 48 TSH 3.18 D Problem List - Problems (1) CAD (coronary artery disease) Code(s): I25.10 - ATHSCL HEART DISEASE OF [place] CORONARY ARTERY W/O ANG PCTRS (2) Dizziness Code(s): R42 - DIZZINESS AND GIDDINESS (3) PNA (pneumonia) Code(s): J18.9 - PNEUMONIA, UNSPECIFIED ORGANISM (4) Aspiration pneumonia Code(s): J69.0 - PNEUMONITIS DUE TO INHALATION OF FOOD AND VOMIT (5) Autonomic postural hypotension Code(s): I95.1 - ORTHOSTATIC HYPOTENSION (6) Benign prostatic hypertrophy Code(s): N40.0 - BENIGN PROSTATIC HYPERPLASIA WITHOUT LOWER URINRY TRACT SYMP (7) History of throat cancer Code(s): Z85.819 - PRSNL HX OF MALIG NEOPLM OF UNSP SITE LIP,ORAL CAV,& PHARYNX (8) Orthostatic hypotension Code(s): I95.1 - ORTHOSTATIC HYPOTENSION IMP PNEUMONIA LIKELY ASPIRATION AUTONOMIC DYSFUNCTION LABILE BP DIZZINESS H/O PHARYNGEAL CA S/P RT ANEMIA DM PLAN ABX PER ID O2 INHALED BRONCHODILATORS FOLLOW SPUTUM C+S DR ARTEAGA
--- NOTE | 2018-01-17 18:44 | PN ---
Progress Note, Physician History of Present Illness: Awake, alert Seated in bed Reports less sputum production No c/o chest pain/ dyspnea Temps down - Current Medication List Current Medications: Active Medications Acetaminophen (Tylenol -) 650 mg PO Q4H PRN PRN Reason: FEVER Last Admin: 01/17/18 13:43 Dose: 650 mg Albuterol/Ipratropium (Duoneb -) 1 amp NEB Q4H PRN PRN Reason: SHORTNESS OF BREATH Amlodipine Besylate (Norvasc -) 5 mg PO DAILY [facility] Last Admin: 01/17/18 10:52 Dose: Not Given Aspirin (Asa -) 81 mg PO DAILY [facility] Last Admin: 01/17/18 10:37 Dose: 81 mg Gabapentin (Neurontin -) 100 mg PO TID [facility] Last Admin: 01/17/18 13:56 Dose: 100 mg Heparin Sodium (Porcine) (Heparin -) 5,000 unit SQ BID [facility] Last Admin: 01/17/18 10:37 Dose: 5,000 unit Piperacillin Sod/Tazobactam (Sod 3.375 gm/ Dextrose) 50 mls @ 100 mls/hr IVPB Q8H-IV [facility]; Protocol Last Admin: 01/17/18 18:00 Dose: 100 mls/hr Levothyroxine Sodium (Synthroid -) 125 mcg PO DAILY@0700 [facility] Last Admin: 01/17/18 06:06 Dose: 125 mcg Midodrine (Proamatine -) 5 mg PO BID-MID [facility] Last Admin: 01/17/18 10:37 Dose: Not Given Pt's Won Med_Non- Formulary Med_ Trospium 20mg Tab 1 each PO BID [facility] Rosuvastatin Calcium (Crestor -) 20 mg PO HS [facility] Last Admin: 01/17/18 00:08 Dose: 20 mg - Objective Vital Signs: Vital Signs Temperature 97.4 F L 01/17/18 17:00 Pulse Rate 80 01/17/18 17:00 Respiratory Rate 20 01/17/18 17:00 Blood Pressure 95/47 L 01/17/18 17:00 O2 Sat by Pulse Oximetry (%) 96 01/17/18 08:57 Constitutional: Yes: No Distress Eyes: Yes: Conjunctiva Clear Cardiovascular: Yes: Regular Rate and Rhythm, S1, S2 Respiratory: Yes: Other (rales R base/lower lung field) Gastrointestinal: Yes: Normal Bowel Sounds, Soft Edema: No Labs: CBC, BMP 01/17/18 05:30 01/17/18 05:30 Assessment/Plan Probable aspiration pneumonia Fever- improved Hx laryngeal ca Continue empiric zosyn
[2018-01-17] MEDS: TROSPIUM PO SCH (21:59)
[2018-01-18] MEDS ORDERED: PIPERACILLIN/TAZOBACTAM 3.375 GM VIAL IVPB ONE ×3 (00:30→16:47)
[2018-01-18] MEDS ORDERED: DEXTROSE 5%-WATER - 50 ML IVPB ONE ×3 (00:31→16:48)
[2018-01-18] MEDS: PIPERACILLIN/TAZOB 3.375 GM 3.375 GM in DEXTROSE 5%-WATER - 50 ML IVPB SCH ×3 (02:49→18:13)
[2018-01-18] MEDS: GABAPENTIN 100 MG CAPSULE (FP) PO SCH ×3 (06:12→21:18)
[2018-01-18] MEDS: LEVOTHYROXINE NA 125 MCG TABLET (FP) PO SCH (06:12)
[2018-01-18 08:08] LABS: SERUM IRON SATURATION 19 % (15-55); TOTAL IRON BINDING CAPACITY 232 ug/dL (250-450); UIBC 189 ug/dL (111-343)
--- NOTE | 2018-01-18 09:13 | PN ---
Progress Note, Physician Chief Complaint: Events noted Not in distress History of Present Illness: Patient was seen and examined. Awake and alert. Chart was reviewed Denies chest pain, SOB or palpitations - Current Medication List Current Medications: Active Medications Acetaminophen (Tylenol -) 650 mg PO Q4H PRN PRN Reason: FEVER Last Admin: 01/17/18 13:43 Dose: 650 mg Albuterol/Ipratropium (Duoneb -) 1 amp NEB Q4H PRN PRN Reason: SHORTNESS OF BREATH Amlodipine Besylate (Norvasc -) 5 mg PO DAILY [facility] Last Admin: 01/17/18 10:52 Dose: Not Given Aspirin (Asa -) 81 mg PO DAILY [facility] Last Admin: 01/17/18 10:37 Dose: 81 mg Gabapentin (Neurontin -) 100 mg PO TID [facility] Last Admin: 01/18/18 06:12 Dose: 100 mg Heparin Sodium (Porcine) (Heparin -) 5,000 unit SQ BID [facility] Last Admin: 01/17/18 21:59 Dose: 5,000 unit Piperacillin Sod/Tazobactam (Sod 3.375 gm/ Dextrose) 50 mls @ 100 mls/hr IVPB Q8H-IV [facility]; Protocol Last Admin: 01/18/18 02:49 Dose: 100 mls/hr Levothyroxine Sodium (Synthroid -) 125 mcg PO DAILY@0700 [facility] Last Admin: 01/18/18 06:12 Dose: 125 mcg Midodrine (Proamatine -) 5 mg PO BID-MID [facility] Last Admin: 01/17/18 18:30 Dose: 5 mg Pt's Won Med_Non- Formulary Med_ Trospium 20mg Tab 1 each PO BID [facility] Last Admin: 01/17/18 21:59 Dose: 1 each Rosuvastatin Calcium (Crestor -) 20 mg PO HS [facility] Last Admin: 01/17/18 21:59 Dose: 20 mg - Objective Vital Signs: Vital Signs Temperature 97.9 F 01/18/18 05:47 Pulse Rate 69 01/18/18 05:47 Respiratory Rate 20 01/18/18 05:47 Blood Pressure 109/64 01/18/18 05:47 O2 Sat by Pulse Oximetry (%) 98 01/17/18 21:00 Eyes: Yes: PERRL HENT: Yes: Atraumatic Neck: Yes: Supple Cardiovascular: Yes: Regular Rate and Rhythm, S1, S2 Respiratory: Yes: CTA Bilaterally Gastrointestinal: Yes: Normal Bowel Sounds, Soft, Other (PEG) Edema: No Additional Findings/Remarks: Review of Systems Cardiovascular: denies: chest pain, SOB, palpitations Respiratory: denies: denies: Cough or Sputum Production Gastrointestinal: denies: Nausea, Vomiting, Diarrhea, Constipation or Abdominal Discomfort Musculoskeletal: denies: joint pains Endocrine: No Symptoms Reported Neuro: denies syncope, seizures Labs: CBC, BMP 01/17/18 05:30 01/17/18 05:30 Problem List - Problems (1) CAD (coronary artery disease) Code(s): I25.10 - ATHSCL HEART DISEASE OF [place] CORONARY ARTERY W/O ANG PCTRS Qualifiers: Coronary Disease-Associated Artery/Lesion type: [place] artery [place] vs. transplanted heart: [place] heart Associated angina: without angina Qualified Code(s): I25.10 - Atherosclerotic heart disease of [place] coronary artery without angina pectoris (2) PNA (pneumonia) Code(s): J18.9 - PNEUMONIA, UNSPECIFIED ORGANISM Qualifiers: Pneumonia type: aspiration pneumonia (3) Aspiration pneumonia Code(s): J69.0 - PNEUMONITIS DUE TO INHALATION OF FOOD AND VOMIT Qualifiers: Laterality: bilateral Lung location: lower lobe of lung (4) Autonomic postural hypotension Code(s): I95.1 - ORTHOSTATIC HYPOTENSION (5) Benign prostatic hypertrophy Code(s): N40.0 - BENIGN PROSTATIC HYPERPLASIA WITHOUT LOWER URINRY TRACT SYMP (6) Carotid stenosis Code(s): I65.29 - OCCLUSION AND STENOSIS OF UNSPECIFIED CAROTID ARTERY (7) HLD (hyperlipidemia) Code(s): E78.5 - HYPERLIPIDEMIA, UNSPECIFIED Qualifiers: Hyperlipidemia type: pure hypercholesterolemia Qualified Code(s): E78.00 - Pure hypercholesterolemia, unspecified; E78.0 - Pure hypercholesterolemia (8) HTN (hypertension) Code(s): I10 - ESSENTIAL (PRIMARY) HYPERTENSION Qualifiers: Hypertension type: essential hypertension Qualified Code(s): I10 - Essential (primary) hypertension (9) Hypothyroid Code(s): E03.9 - HYPOTHYROIDISM, UNSPECIFIED Qualifiers: Hypothyroidism type: unspecified Qualified Code(s): E03.9 - Hypothyroidism , unspecified (10) Orthostatic hypotension Code(s): I95.1 - ORTHOSTATIC HYPOTENSION (11) Renal insufficiency Code(s): N28.9 - DISORDER OF KIDNEY AND URETER, UNSPECIFIED Assessment/Plan 1. Aspiration Pneumonia 2. Recurrent syncope with labile hypertension and intermittent postural hypotension referable to dysautonomia 3. 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 Non-obstructive CAD, angina pectoris 5. Hyperlipidemia 6. Hypothyroidism 7. Benign prostatic hypertrophy PLAN: 1. Continue Norvasc 5 QD 2. Continue Midodrine 5 BID as needed. 3. Continue ASA 81 QD and Crestor 20 QHS 4. Continue empiric antibiotic course 5. Enteral feeds via PEG 6. DVT prophylaxis. Monitor orthostasis Gutierrez Acevedo MD
[2018-01-18] MEDS ORDERED: PT OWN MED DRAWER 7, Y5N ONE ×2 (09:26→19:45)
--- NOTE | 2018-01-18 09:31 | PN ---
Progress Note, Physician Chief Complaint: Dizziness Aspiration Pneumonia History of Present Illness: NAD Feeling better CXR- New Bibasilar changes Febrile on admission afebrile overnight Being treated with IV abx, seen by ID HAD A REPEAT MODIFIED BARIUM SWALLOW AT [place], WHICH SHOWED THAT PATIENT ASPIRATED DURING SWALLOW WITH NO COUGH RESPONSE WHEN GIVEN LIQUID BOLUS TRIALS. IT WAS THEREFORE CONCLUDED THAT PATIENT HAS SEVERE PHARYNGEAL STAGE DYSPHAGIA, IS AT HIGH RISK FOR ASPIRATION WITH ORAL FEEDS AND HAS SIGNIFICANT BOLUS TRANSPORT ISSUES SECONDARY TO LATE RADIATION ASSOCIATED DYSPHAGIA AND IS NOT EMENDABLE TO THERAPEUTIC INTERVENTION WHICH IS NOT REVERSIBLE DESPITE SPEECH THERAPY OUTPATIENT. (COPY IN CHART) - Current Medication List Current Medications: Active Medications Acetaminophen (Tylenol -) 650 mg PO Q4H PRN PRN Reason: FEVER Last Admin: 01/17/18 13:43 Dose: 650 mg Albuterol/Ipratropium (Duoneb -) 1 amp NEB Q4H PRN PRN Reason: SHORTNESS OF BREATH Amlodipine Besylate (Norvasc -) 5 mg PO DAILY [facility] Last Admin: 01/17/18 10:52 Dose: Not Given Aspirin (Asa -) 81 mg PO DAILY [facility] Last Admin: 01/17/18 10:37 Dose: 81 mg Gabapentin (Neurontin -) 100 mg PO TID [facility] Last Admin: 01/18/18 06:12 Dose: 100 mg Heparin Sodium (Porcine) (Heparin -) 5,000 unit SQ BID [facility] Last Admin: 01/17/18 21:59 Dose: 5,000 unit Piperacillin Sod/Tazobactam (Sod 3.375 gm/ Dextrose) 50 mls @ 100 mls/hr IVPB Q8H-IV [facility]; Protocol Last Admin: 01/18/18 02:49 Dose: 100 mls/hr Levothyroxine Sodium (Synthroid -) 125 mcg PO DAILY@0700 [facility] Last Admin: 01/18/18 06:12 Dose: 125 mcg Midodrine (Proamatine -) 5 mg PO BID-MID [facility] Last Admin: 01/17/18 18:30 Dose: 5 mg Pt's Won Med_Non- Formulary Med_ Trospium 20mg Tab 1 each PO BID [facility] Last Admin: 01/17/18 21:59 Dose: 1 each Rosuvastatin Calcium (Crestor -) 20 mg PO HS [facility] Last Admin: 01/17/18 21:59 Dose: 20 mg - Objective Vital Signs: Vital Signs Temperature 97.9 F 01/18/18 05:47 Pulse Rate 69 01/18/18 05:47 Respiratory Rate 20 01/18/18 05:47 Blood Pressure 109/64 01/18/18 05:47 O2 Sat by Pulse Oximetry (%) 98 01/17/18 21:00 Constitutional: Yes: Well Nourished, No Distress, Calm Cardiovascular: Yes: Regular Rate and Rhythm Respiratory: Yes: Regular, On Nasal O2, Rhonchi (RLL), SOB on Exertion Gastrointestinal: Yes: Normal Bowel Sounds, Soft Genitourinary: Yes: WNL Musculoskeletal: Yes: WNL Extremities: Yes: WNL Edema: No Peripheral Pulses WNL: Yes Neurological: Yes: Alert, Oriented Psychiatric: Yes: Alert, Oriented Labs: CBC, BMP 01/17/18 05:30 01/17/18 05:30 Problem List - Problems (1) Aspiration pneumonia Assessment/Plan: -NPO except meds -CXR-Bibasilar changes -Nasal O2 PRN -Bronchodilators -Pulmonary and ID consult -Also seen by [employer] -Repeat MBS not indicated at this time -On IV Zosyn 3.375 Q8H -Legionella culture pending Code(s): J69.0 - PNEUMONITIS DUE TO INHALATION OF FOOD AND VOMIT Qualifiers: Laterality: bilateral Lung location: lower lobe of lung (2) Autonomic postural hypotension Assessment/Plan: -Seen by Cardiology -Chronic -Maintains pressure with midodrine and amlodipine -Compression stockings Code(s): I95.1 - ORTHOSTATIC HYPOTENSION (3) History of throat cancer Assessment/Plan: -Has seen ENT at [facility] Code(s): Z85.819 - PRSNL [facility],ORAL CAV,& PHARYNX Assessment/Plan see problem list Physical therapy DVT prophylaxis
[2018-01-18] MEDS: HEPARIN NA (PORCINE) 5,000 UNITS/ML 1ML VIAL SQ SCH ×2 (10:58→21:18)
[2018-01-18] MEDS: ASPIRIN 81 MG CHEWABLE TABLETS PO SCH (10:58)
[2018-01-18] MEDS: amLODIPine BESYLATE 5 MG TABLET (FP) PO SCH ×2 (10:58→11:01)
[2018-01-18] MEDS: TROSPIUM PO SCH ×2 (10:59→21:19)
[2018-01-18] MEDS: MIDODRINE HCL 5 MG TABLET PO SCH ×2 (10:59→17:18)
--- NOTE | 2018-01-18 13:15 | PN ---
Progress Note (short form) - Note Progress Note: Resting in NAD. No CP Or SOB. Afebrile. No acute events overnight. Intake & Output 01/15/18 01/16/18 01/17/18 01/18/18 23:59 23:59 23:59 23:59 Intake Total 1510 500 100 Output Total 800 600 400 Balance 710 -100 -300 Weight 185 lb 0.016 oz Last Vital Signs Temp Pulse Resp BP Pulse Ox 98 F 77 20 95/57 L 98 01/18/18 10:57 01/18/18 10:57 01/18/18 10:57 01/18/18 10:57 01/17/18 21:00 Active Medications Acetaminophen (Tylenol -) 650 mg PO Q4H PRN PRN Reason: FEVER Last Admin: 01/17/18 13:43 Dose: 650 mg Albuterol/Ipratropium (Duoneb -) 1 amp NEB Q4H PRN PRN Reason: SHORTNESS OF BREATH Amlodipine Besylate (Norvasc -) 5 mg PO DAILY [facility] Last Admin: 01/18/18 11:01 Dose: Not Given Aspirin (Asa -) 81 mg PO DAILY [facility] Last Admin: 01/18/18 10:58 Dose: 81 mg Gabapentin (Neurontin -) 100 mg PO TID [facility] Last Admin: 01/18/18 06:12 Dose: 100 mg Heparin Sodium (Porcine) (Heparin -) 5,000 unit SQ BID [facility] Last Admin: 01/18/18 10:58 Dose: 5,000 unit Piperacillin Sod/Tazobactam (Sod 3.375 gm/ Dextrose) 50 mls @ 100 mls/hr IVPB Q8H-IV [facility]; Protocol Last Admin: 01/18/18 10:59 Dose: 100 mls/hr Levothyroxine Sodium (Synthroid -) 125 mcg PO DAILY@0700 [facility] Last Admin: 01/18/18 06:12 Dose: 125 mcg Midodrine (Proamatine -) 5 mg PO BID-MID [facility] Last Admin: 01/18/18 10:59 Dose: Not Given Pt's Won Med_Non- Formulary Med_ Trospium 20mg Tab 1 each PO BID [facility] Last Admin: 01/18/18 10:59 Dose: 1 each Rosuvastatin Calcium (Crestor -) 20 mg PO HS [facility] Last Admin: 01/17/18 21:59 Dose: 20 mg Constitutional: Yes: NAD Cardiovascular: Yes: Regular Rate and Rhythm Respiratory: Yes: Bibasilar rhonchi Musculoskeletal: Yes: WNL Extremities: Yes: WNL Edema: No Peripheral Pulses WNL: Yes Neurological: Yes: Alert, Oriented Psychiatric: Yes: Alert, Oriented Labs: Laboratory Results - last 24 hr 01/17/18 10:33 Iron 43 TIBC 232 L Iron Saturation 19 Problem List - Problems (1) CAD (coronary artery disease) Code(s): I25.10 - ATHSCL HEART DISEASE OF [place] CORONARY ARTERY W/O ANG PCTRS (2) Dizziness Code(s): R42 - DIZZINESS AND GIDDINESS (3) PNA (pneumonia) Code(s): J18.9 - PNEUMONIA, UNSPECIFIED ORGANISM (4) Aspiration pneumonia Code(s): J69.0 - PNEUMONITIS DUE TO INHALATION OF FOOD AND VOMIT (5) Autonomic postural hypotension Code(s): I95.1 - ORTHOSTATIC HYPOTENSION (6) Benign prostatic hypertrophy Code(s): N40.0 - BENIGN PROSTATIC HYPERPLASIA WITHOUT LOWER URINRY TRACT SYMP (7) History of throat cancer Code(s): Z85.819 - PRSNL HX OF MALIG NEOPLM OF [place] SITE LIP,ORAL CAV,& PHARYNX (8) Orthostatic hypotension Code(s): I95.1 - ORTHOSTATIC HYPOTENSION IMP PNEUMONIA LIKELY ASPIRATION AUTONOMIC DYSFUNCTION LABILE BP DIZZINESS H/O PHARYNGEAL CA S/P RT ANEMIA DM PLAN ABX PER ID O2 INHALED BRONCHODILATORS DR ARTEAGA
[2018-01-18] MEDS: ROSUVASTATIN CA 10 MG TABLET (FP) PO SCH (21:18)
[2018-01-19] MEDS: PIPERACILLIN/TAZOB 3.375 GM 3.375 GM in DEXTROSE 5%-WATER - 50 ML IVPB SCH ×3 (02:44→17:18)
[2018-01-19] MEDS ORDERED: PIPERACILLIN/TAZOBACTAM 3.375 GM VIAL IVPB ONE ×3 (03:41→16:56)
[2018-01-19] MEDS ORDERED: DEXTROSE 5%-WATER - 50 ML IVPB ONE ×3 (03:41→16:56)
[2018-01-19] MEDS: LEVOTHYROXINE NA 125 MCG TABLET (FP) PO SCH (05:59)
[2018-01-19] MEDS: GABAPENTIN 100 MG CAPSULE (FP) PO SCH ×3 (05:59→21:24)
--- NOTE | 2018-01-19 08:43 | PN ---
Progress Note, Physician - Current Medication List Current Medications: Active Medications Acetaminophen (Tylenol -) 650 mg PO Q4H PRN PRN Reason: FEVER Last Admin: 01/17/18 13:43 Dose: 650 mg Albuterol/Ipratropium (Duoneb -) 1 amp NEB Q4H PRN PRN Reason: SHORTNESS OF BREATH Amlodipine Besylate (Norvasc -) 5 mg PO DAILY [facility] Last Admin: 01/18/18 11:01 Dose: Not Given Aspirin (Asa -) 81 mg PO DAILY [facility] Last Admin: 01/18/18 10:58 Dose: 81 mg Gabapentin (Neurontin -) 100 mg PO TID [facility] Last Admin: 01/19/18 05:59 Dose: 100 mg Heparin Sodium (Porcine) (Heparin -) 5,000 unit SQ BID [facility] Last Admin: 01/18/18 21:18 Dose: 5,000 unit Piperacillin Sod/Tazobactam (Sod 3.375 gm/ Dextrose) 50 mls @ 100 mls/hr IVPB Q8H-IV [facility]; Protocol Last Admin: 01/19/18 02:44 Dose: 100 mls/hr Levothyroxine Sodium (Synthroid -) 125 mcg PO DAILY@0700 [facility] Last Admin: 01/19/18 05:59 Dose: 125 mcg Midodrine (Proamatine -) 5 mg PO BID-MID [facility] Last Admin: 01/18/18 17:18 Dose: Not Given Pt's Won Med_Non- Formulary Med_ Trospium 20mg Tab 1 each PO BID [facility] Last Admin: 01/18/18 21:19 Dose: 1 each Rosuvastatin Calcium (Crestor -) 20 mg PO HS [facility] Last Admin: 01/18/18 21:18 Dose: 20 mg - Objective Vital Signs: Vital Signs Temperature 98.3 F 01/19/18 05:00 Pulse Rate 70 01/19/18 05:00 Respiratory Rate 18 01/19/18 05:00 Blood Pressure 112/71 01/19/18 05:00 O2 Sat by Pulse Oximetry (%) 96 01/18/18 21:00 Cardiovascular: Yes: S1, S2 Respiratory: Yes: On Nasal O2, Rhonchi Gastrointestinal: Yes: Normal Bowel Sounds, Soft. No: Tenderness Labs: CBC, BMP 01/17/18 05:30 01/17/18 05:30 Assessment/Plan - Problems (1) Aspiration pneumonia Assessment/Plan: -NPO except meds -CXR-Bibasilar changes--Repeat -Nasal O2 PRN -Bronchodilators -Pulmonary and ID consult -Also seen by [employer] -Repeat MBS not indicated at this time -On IV Zosyn 3.375 Q8H -Legionella culture pending Code(s): J69.0 - PNEUMONITIS DUE TO INHALATION OF FOOD AND VOMIT Qualifiers: Laterality: bilateral Lung location: lower lobe of lung (2) Autonomic postural hypotension Assessment/Plan: -Seen by Cardiology -Chronic -Maintains pressure with midodrine and amlodipine -Compression stockings Code(s): I95.1 - ORTHOSTATIC HYPOTENSION (3) History of throat cancer Assessment/Plan: -Has seen ENT at [facility] Code(s): Z85.819 - PRSNL HX OF MALIG NEOPLM OF [place] SITE LIP,ORAL CAV,& PHARYNX Assessment/Plan see problem list Physical therapy DVT prophylaxis
--- NOTE | 2018-01-19 09:20 | CONS ---
DATE OF CONSULTATION: 01/16/2018 REFERRING PHYSICIAN: Fern Murillo MD HISTORY OF PRESENT ILLNESS: The patient is a 72-year-old white male known to me from previous hospitalization as well as from office followup. He has a past medical history of pharyngeal cancer status post radiation therapy complicated by autonomic instability with labile blood pressures, maintained on midodrine as well as amlodipine. He has a history of chronic dysphagia, aspiration pneumonia, status post G-tube, hyperlipidemia, benign prostatic hypertrophy, anemia, diabetes and hypothyroidism. He was admitted to [facility] with prolonged dizziness and inability to stand. EMS was called and the patient was noted to have blood pressure. He presented to the emergency room with the above. In the ER, he was also noted to be hypotensive, for which he was given midodrine. The patient has also been complaining of some chills over the past couple of days and has been coughing up yellow sputum. He denies any fever, nausea, vomiting or diaphoresis. A chest x-ray performed revealed increasing bibasilar infiltrates, likely pneumonia. The patient denies any significant shortness of breath. He has had some weight loss. He denies night sweats. PAST MEDICAL HISTORY: Again, this includes autonomic dysfunction, a history of labile blood pressures, pneumonia, aspiration, hyperlipidemia, orthostatic hypotension, benign prostatic hypertrophy, anemia, diabetes, hypothyroidism and pharyngeal cancer. REVIEW OF SYSTEMS: Positive for cough, sputum, mild chest congestion and chills. No fever or hemoptysis. No abdominal pain. Positive for dizziness. PAST MEDICATIONS: Medications prior to admission included aspirin, vitamin D3, vitamin B12, Synthroid, Crestor, , albuterol, Norvasc, Nasonex, gabapentin, sodium chloride and . CURRENT MEDICATIONS: Levaquin, , heparin, Neurontin, Norvasc, Crestor, aspirin and Synthroid. PHYSICAL EXAMINATION: General: The patient is a well-developed, well-nourished male, awake and alert, in no acute distress. Vital Signs: He is afebrile. Blood pressure is 108/70, respiratory rate 18, O2 saturation is 92% on 2 liters of oxygen. Temperature is 100.1. HEENT: Head is normocephalic, atraumatic. Neck: Supple. Heart: Regular, S1, S2. Chest: Bibasilar crackles one-third up. Abdomen: Soft. Bowel sounds are positive. Extremities: No cyanosis or edema. LABORATORY: WBC is 7.2, hemoglobin 10.5, hematocrit 32.6, platelet count of 217,000, BUN 26, creatinine 0.8. A chest x-ray is as noted earlier. IMPRESSION: 1. Fever and chills secondary to bilateral lower lobe infiltrates, specifically pneumonia. 2. History of recurrent aspiration pneumonia. 3. Autonomic dysfunction with labile blood pressures and orthostatic hypotension. 4. Anemia. 5. Benign prostatic hypertrophy. 6. Pharyngeal cancer status post radiation therapy. PLAN: 1. IV antibiotics. 2. Inhaled bronchodilators. 3. Continue G-tube feedings. 4. Supplemental O2. 5. Obtain cultures. 6. Monitor blood pressures. SOWMYA UMANA M.D. [id number]
[2018-01-19] MEDS: HEPARIN NA (PORCINE) 5,000 UNITS/ML 1ML VIAL SQ SCH ×2 (09:43→21:24)
[2018-01-19] MEDS: ASPIRIN 81 MG CHEWABLE TABLETS PO SCH (09:43)
[2018-01-19] MEDS: amLODIPine BESYLATE 5 MG TABLET (FP) PO SCH ×2 (09:44→09:50)
[2018-01-19] MEDS: TROSPIUM PO SCH ×2 (09:44→21:24)
[2018-01-19] MEDS: MIDODRINE HCL 5 MG TABLET PO SCH ×3 (09:45→17:45)
--- NOTE | 2018-01-19 09:51 | PN ---
Progress Note, Physician Chief Complaint: Events noted Not in distress History of Present Illness: Patient was seen and examined. Awake and alert. Chart was reviewed Denies chest pain, SOB or palpitations - Current Medication List Current Medications: Active Medications Acetaminophen (Tylenol -) 650 mg PO Q4H PRN PRN Reason: FEVER Last Admin: 01/17/18 13:43 Dose: 650 mg Albuterol/Ipratropium (Duoneb -) 1 amp NEB Q4H PRN PRN Reason: SHORTNESS OF BREATH Amlodipine Besylate (Norvasc -) 5 mg PO DAILY [facility] Last Admin: 01/19/18 09:50 Dose: Not Given Aspirin (Asa -) 81 mg PO DAILY [facility] Last Admin: 01/19/18 09:43 Dose: 81 mg Gabapentin (Neurontin -) 100 mg PO TID [facility] Last Admin: 01/19/18 05:59 Dose: 100 mg Heparin Sodium (Porcine) (Heparin -) 5,000 unit SQ BID [facility] Last Admin: 01/19/18 09:43 Dose: 5,000 unit Piperacillin Sod/Tazobactam (Sod 3.375 gm/ Dextrose) 50 mls @ 100 mls/hr IVPB Q8H-IV [facility]; Protocol Last Admin: 01/19/18 09:45 Dose: 100 mls/hr Levothyroxine Sodium (Synthroid -) 125 mcg PO DAILY@0700 [facility] Last Admin: 01/19/18 05:59 Dose: 125 mcg Midodrine (Proamatine -) 5 mg PO BID-MID [facility] Last Admin: 01/19/18 09:49 Dose: 5 mg Pt's Won Med_Non- Formulary Med_ Trospium 20mg Tab 1 each PO BID [facility] Last Admin: 01/19/18 09:44 Dose: 1 each Rosuvastatin Calcium (Crestor -) 20 mg PO HS [facility] Last Admin: 01/18/18 21:18 Dose: 20 mg - Objective Vital Signs: Vital Signs Temperature 98.3 F 01/19/18 05:00 Pulse Rate 70 01/19/18 05:00 Respiratory Rate 18 01/19/18 05:00 Blood Pressure 112/71 01/19/18 05:00 O2 Sat by Pulse Oximetry (%) 96 01/18/18 21:00 Eyes: Yes: PERRL HENT: Yes: Atraumatic Neck: Yes: Supple Cardiovascular: Yes: Regular Rate and Rhythm, S1, S2 Respiratory: Yes: CTA Bilaterally Gastrointestinal: Yes: Normal Bowel Sounds, Soft, Other (PEG). No: Tenderness Edema: No Additional Findings/Remarks: Review of Systems Cardiovascular: denies: chest pain, SOB, palpitations Respiratory: denies: denies: Cough or Sputum Production Gastrointestinal: denies: Nausea, Vomiting, Diarrhea, Constipation or Abdominal Discomfort Musculoskeletal: denies: joint pains Endocrine: No Symptoms Reported Neuro: denies syncope, seizures Problem List - Problems (1) CAD (coronary artery disease) Code(s): I25.10 - ATHSCL HEART DISEASE OF [place] CORONARY ARTERY W/O ANG PCTRS Qualifiers: Coronary Disease-Associated Artery/Lesion type: [place] artery [place] vs. transplanted heart: [place] heart Associated angina: without angina Qualified Code(s): I25.10 - Atherosclerotic heart disease of [place] coronary artery without angina pectoris (2) PNA (pneumonia) Code(s): J18.9 - PNEUMONIA, UNSPECIFIED ORGANISM Qualifiers: Pneumonia type: aspiration pneumonia (3) Aspiration pneumonia Code(s): J69.0 - PNEUMONITIS DUE TO INHALATION OF FOOD AND VOMIT Qualifiers: Laterality: bilateral Lung location: lower lobe of lung (4) Autonomic postural hypotension Code(s): I95.1 - ORTHOSTATIC HYPOTENSION (5) Benign prostatic hypertrophy Code(s): N40.0 - BENIGN PROSTATIC HYPERPLASIA WITHOUT LOWER URINRY TRACT SYMP (6) Carotid stenosis Code(s): I65.29 - OCCLUSION AND STENOSIS OF UNSPECIFIED CAROTID ARTERY (7) HLD (hyperlipidemia) Code(s): E78.5 - HYPERLIPIDEMIA, UNSPECIFIED Qualifiers: Hyperlipidemia type: pure hypercholesterolemia Qualified Code(s): E78.00 - Pure hypercholesterolemia, unspecified; E78.0 - Pure hypercholesterolemia (8) HTN (hypertension) Code(s): I10 - ESSENTIAL (PRIMARY) HYPERTENSION Qualifiers: Hypertension type: essential hypertension Qualified Code(s): I10 - Essential (primary) hypertension (9) Hypothyroid Code(s): E03.9 - HYPOTHYROIDISM, UNSPECIFIED Qualifiers: Hypothyroidism type: unspecified Qualified Code(s): E03.9 - Hypothyroidism , unspecified (10) Orthostatic hypotension Code(s): I95.1 - ORTHOSTATIC HYPOTENSION (11) Renal insufficiency Code(s): N28.9 - DISORDER OF KIDNEY AND URETER, UNSPECIFIED Assessment/Plan 1. Aspiration Pneumonia 2. Recurrent syncope with labile hypertension and intermittent postural hypotension referable to dysautonomia 3. 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 Non-obstructive CAD, angina pectoris 5. Hyperlipidemia 6. Hypothyroidism 7. Benign prostatic hypertrophy PLAN: 1. Continue Norvasc 5 QD 2. Continue Midodrine 5 BID as needed. 3. Continue ASA 81 QD and Crestor 20 QHS 4. Continue empiric antibiotic course 5. Enteral feeds via PEG 6. DVT prophylaxis. Monitor orthostasis Gutierrez Acevedo MD
--- NOTE | 2018-01-19 11:19 | PN ---
Progress Note, Physician History of Present Illness: PULMONARY ALERT,FEELING BETTER,+ COUGH (YELLOW SPUTUM) - Current Medication List Current Medications: Active Medications Acetaminophen (Tylenol -) 650 mg PO Q4H PRN PRN Reason: FEVER Last Admin: 01/17/18 13:43 Dose: 650 mg Albuterol/Ipratropium (Duoneb -) 1 amp NEB Q4H PRN PRN Reason: SHORTNESS OF BREATH Amlodipine Besylate (Norvasc -) 5 mg PO DAILY [facility] Last Admin: 01/19/18 09:50 Dose: Not Given Aspirin (Asa -) 81 mg PO DAILY [facility] Last Admin: 01/19/18 09:43 Dose: 81 mg Gabapentin (Neurontin -) 100 mg PO TID [facility] Last Admin: 01/19/18 05:59 Dose: 100 mg Heparin Sodium (Porcine) (Heparin -) 5,000 unit SQ BID [facility] Last Admin: 01/19/18 09:43 Dose: 5,000 unit Piperacillin Sod/Tazobactam (Sod 3.375 gm/ Dextrose) 50 mls @ 100 mls/hr IVPB Q8H-IV [facility]; Protocol Last Admin: 01/19/18 09:45 Dose: 100 mls/hr Levothyroxine Sodium (Synthroid -) 125 mcg PO DAILY@0700 [facility] Last Admin: 01/19/18 05:59 Dose: 125 mcg Midodrine (Proamatine -) 5 mg PO BID-MID [facility] Last Admin: 01/19/18 09:49 Dose: 5 mg Pt's Won Med_Non- Formulary Med_ Trospium 20mg Tab 1 each PO BID [facility] Last Admin: 01/19/18 09:44 Dose: 1 each Rosuvastatin Calcium (Crestor -) 20 mg PO HS [facility] Last Admin: 01/18/18 21:18 Dose: 20 mg - Objective Vital Signs: Vital Signs Temperature 98.3 F 01/19/18 05:00 Pulse Rate 70 01/19/18 05:00 Respiratory Rate 18 01/19/18 05:00 Blood Pressure 112/71 01/19/18 05:00 O2 Sat by Pulse Oximetry (%) 96 01/18/18 21:00 Constitutional: Yes: Well Nourished, Calm Eyes: Yes: WNL HENT: Yes: WNL Neck: Yes: WNL Cardiovascular: Yes: Regular Rate and Rhythm, S1, S2 Respiratory: Yes: Rales (BILATERAL RALES 1/3 UP) Gastrointestinal: Yes: Normal Bowel Sounds, Soft Extremities: Yes: WNL Edema: No Labs: CBC, BMP Problem List - Problems (1) CAD (coronary artery disease) Code(s): I25.10 - ATHSCL HEART DISEASE OF [place] CORONARY ARTERY W/O ANG PCTRS Qualifiers: Coronary Disease-Associated Artery/Lesion type: [place] artery [place] vs. transplanted heart: [place] heart Associated angina: without angina Qualified Code(s): I25.10 - Atherosclerotic heart disease of [place] coronary artery without angina pectoris (2) Dizziness Code(s): R42 - DIZZINESS AND GIDDINESS (3) PNA (pneumonia) Code(s): J18.9 - PNEUMONIA, UNSPECIFIED ORGANISM Qualifiers: Pneumonia type: aspiration pneumonia (4) Aspiration pneumonia Code(s): J69.0 - PNEUMONITIS DUE TO INHALATION OF FOOD AND VOMIT Qualifiers: Laterality: bilateral Lung location: lower lobe of lung (5) Autonomic postural hypotension Code(s): I95.1 - ORTHOSTATIC HYPOTENSION (6) Benign prostatic hypertrophy Code(s): N40.0 - BENIGN PROSTATIC HYPERPLASIA WITHOUT LOWER URINRY TRACT SYMP (7) History of throat cancer Code(s): Z85.819 - PRSNL HX OF MALIG NEOPLM OF UNSP SITE LIP,ORAL CAV,& PHARYNX (8) Orthostatic hypotension Code(s): I95.1 - ORTHOSTATIC HYPOTENSION Assessment/Plan IMP PNEUMONIA LIKELY ASPIRATION AUTONOMIC DYSFUNCTION LABILE BP DIZZINESS H/O PHARYNGEAL CA S/P RT ANEMIA DM PLAN ABX PER ID O2 INHALED BRONCHODILATORS F/U CHEST X-RAYS MONITOR BP DR UMANA Problem List - Problems (1) CAD (coronary artery disease) Code(s): I25.10 - ATHSCL HEART DISEASE OF [place] CORONARY ARTERY W/O ANG PCTRS (2) Dizziness Code(s): R42 - DIZZINESS AND GIDDINESS (3) PNA (pneumonia) Code(s): J18.9 - PNEUMONIA, UNSPECIFIED ORGANISM (4) Aspiration pneumonia Code(s): J69.0 - PNEUMONITIS DUE TO INHALATION OF FOOD AND VOMIT (5) Autonomic postural hypotension Code(s): I95.1 - ORTHOSTATIC HYPOTENSION (6) Benign prostatic hypertrophy Code(s): N40.0 - BENIGN PROSTATIC HYPERPLASIA WITHOUT LOWER URINRY TRACT SYMP (7) History of throat cancer Code(s): Z85.819 - PRSNL HX OF MALIG NEOPLM OF UNSP SITE LIP,ORAL CAV,& PHARYNX (8) Orthostatic hypotension Code(s): I95.1 - ORTHOSTATIC HYPOTENSION
--- NOTE | 2018-01-19 11:23 | PN ---
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 Reviewed with him that he is likely aspirating silently on thin water, with greater risk if he is not performing frequent mouth care to reduce build up of oral bacteria. [facility] MBS reviewed. Voice is strong and not wet or gurgly. Suggest Mouth care TID Continuation of swallowing exercises to reduce risk of aspiration on secretions. NPO including PO medication and sips of water. Consider all Meds via PEG for now. Pt instructed again to Sip water/swish/spit- Do not swallow water. Recurrent PNA possibly sec to aspiration. Pt requires TF for total nutritional intake/hydration/medication at this time.
--- NOTE | 2018-01-19 14:43 | PN ---
Progress Note, Physician History of Present Illness: Awake, alert Seated in bed Reports less sputum production No c/o chest pain/ dyspnea Temps down Wound c/s PEG site MRSA - Current Medication List Current Medications: Active Medications Acetaminophen (Tylenol -) 650 mg PO Q4H PRN PRN Reason: FEVER Last Admin: 01/17/18 13:43 Dose: 650 mg Albuterol/Ipratropium (Duoneb -) 1 amp NEB Q4H PRN PRN Reason: SHORTNESS OF BREATH Amlodipine Besylate (Norvasc -) 5 mg PO DAILY [facility] Last Admin: 01/19/18 09:50 Dose: Not Given Aspirin (Asa -) 81 mg PO DAILY [facility] Last Admin: 01/19/18 09:43 Dose: 81 mg Gabapentin (Neurontin -) 100 mg PO TID [facility] Last Admin: 01/19/18 13:29 Dose: 100 mg Heparin Sodium (Porcine) (Heparin -) 5,000 unit SQ BID [facility] Last Admin: 01/19/18 09:43 Dose: 5,000 unit Piperacillin Sod/Tazobactam (Sod 3.375 gm/ Dextrose) 50 mls @ 100 mls/hr IVPB Q8H-IV [facility]; Protocol Last Admin: 01/19/18 09:45 Dose: 100 mls/hr Levothyroxine Sodium (Synthroid -) 125 mcg PO DAILY@0700 [facility] Last Admin: 01/19/18 05:59 Dose: 125 mcg Midodrine (Proamatine -) 5 mg PO BID-MID [facility] Last Admin: 01/19/18 09:49 Dose: 5 mg Pt's Won Med_Non- Formulary Med_ Trospium 20mg Tab 1 each PO BID [facility] Last Admin: 01/19/18 09:44 Dose: 1 each Rosuvastatin Calcium (Crestor -) 20 mg PO HS [facility] Last Admin: 01/18/18 21:18 Dose: 20 mg - Objective Vital Signs: Vital Signs Temperature 98.3 F 01/19/18 14:00 Pulse Rate 79 01/19/18 14:00 Respiratory Rate 20 01/19/18 14:00 Blood Pressure 159/99 01/19/18 14:00 O2 Sat by Pulse Oximetry (%) 97 01/19/18 09:00 Constitutional: Yes: No Distress Eyes: Yes: Conjunctiva Clear Cardiovascular: Yes: Regular Rate and Rhythm, S1, S2 Respiratory: Yes: Other (few crepitations R base) Gastrointestinal: Yes: Normal Bowel Sounds, Soft, Other (no erythema or drainage noted at PEG site). No: Tenderness Edema: No Labs: CBC, BMP 01/17/18 05:30 01/17/18 05:30 Assessment/Plan Probable aspiration pneumonia Fever- improved Hx laryngeal ca + wound c/s MRSA- PEG site does not appear clinically infected Continue empiric zosyn, day #4
[2018-01-19] MEDS ORDERED: PT OWN MED DRAWER 7, Y5N ONE ×2 (19:18→21:18)
[2018-01-19] MEDS: ROSUVASTATIN CA 10 MG TABLET (FP) PO SCH (21:24)
[2018-01-20] MEDS ORDERED: PIPERACILLIN/TAZOBACTAM 3.375 GM VIAL IVPB ONE ×3 (01:05→18:44)
[2018-01-20] MEDS ORDERED: DEXTROSE 5%-WATER - 50 ML IVPB ONE ×3 (01:05→18:44)
[2018-01-20] MEDS: PIPERACILLIN/TAZOB 3.375 GM 3.375 GM in DEXTROSE 5%-WATER - 50 ML IVPB SCH ×3 (01:22→18:48)
[2018-01-20] MEDS: LEVOTHYROXINE NA 125 MCG TABLET (FP) PO SCH (06:03)
[2018-01-20] MEDS: GABAPENTIN 100 MG CAPSULE (FP) PO SCH ×3 (06:03→21:55)
[2018-01-20] MEDS ORDERED: PT OWN MED DRAWER 7, Y5N ONE ×2 (09:21→21:27)
[2018-01-20] MEDS: amLODIPine BESYLATE 5 MG TABLET (FP) PO SCH (09:35)
[2018-01-20] MEDS: MIDODRINE HCL 5 MG TABLET PO SCH ×2 (09:35→18:44)
[2018-01-20] MEDS: TROSPIUM PO SCH ×2 (09:43→21:55)
[2018-01-20] MEDS: ASPIRIN 81 MG CHEWABLE TABLETS PO SCH (09:44)
[2018-01-20] MEDS: HEPARIN NA (PORCINE) 5,000 UNITS/ML 1ML VIAL SQ SCH ×2 (09:44→21:55)
--- NOTE | 2018-01-20 10:16 | PN ---
Progress Note (short form) - Note Progress Note: Chief Complaint: Events noted, notes reviewed, reports cough productive of sputum, denies any chest pain History of Present Illness: Seen and examined on telemetry. Events noted, notes reviewed, reports cough productive of sputum, denies any chest pain Medications: Current Medications Acetaminophen (Tylenol -) 650 mg PO Q4H PRN PRN Reason: FEVER Last Admin: 01/17/18 13:43 Dose: 650 mg Albuterol/Ipratropium (Duoneb -) 1 amp NEB Q4H PRN PRN Reason: SHORTNESS OF BREATH Amlodipine Besylate (Norvasc -) 5 mg PO DAILY [facility] Last Admin: 01/20/18 09:35 Dose: Not Given Aspirin (Asa -) 81 mg PO DAILY [facility] Last Admin: 01/20/18 09:44 Dose: 81 mg Gabapentin (Neurontin -) 100 mg PO TID [facility] Last Admin: 01/20/18 06:03 Dose: 100 mg Heparin Sodium (Porcine) (Heparin -) 5,000 unit SQ BID [facility] Last Admin: 01/20/18 09:44 Dose: 5,000 unit Piperacillin Sod/Tazobactam (Sod 3.375 gm/ Dextrose) 50 mls @ 100 mls/hr IVPB Q8H-IV [facility]; Protocol Last Admin: 01/20/18 09:36 Dose: 100 mls/hr Levothyroxine Sodium (Synthroid -) 125 mcg PO DAILY@0700 [facility] Last Admin: 01/20/18 06:03 Dose: 125 mcg Midodrine (Proamatine -) 5 mg PO BID-MID [facility] Last Admin: 01/20/18 09:35 Dose: Not Given Pt's Won Med_Non- Formulary Med_ Trospium 20mg Tab 1 each PO BID [facility] Last Admin: 01/20/18 09:43 Dose: 1 each Rosuvastatin Calcium (Crestor -) 20 mg PO HS [facility] Last Admin: 01/19/18 21:24 Dose: 20 mg Review of Systems - Review of Systems Constitutional: no symptoms reported Respiratory: as noted above Cardiovascular: as noted above Gastrointestinal: denies Nausea, Vomiting, Diarrhea, Constipation or Abdominal Pain Genitourinary: no symptoms reported Musculoskeletal: no symptoms reported Endocrine: no symptoms reported Vital Signs: Last Vital Signs Temp Pulse Resp BP Pulse Ox 97.8 F 79 20 146/96 95 01/20/18 06:00 01/20/18 06:00 01/20/18 06:00 01/20/18 06:00 01/19/18 22:00 Intake & Output 01/17/18 01/18/18 01/19/18 01/20/18 23:59 23:59 23:59 23:59 Intake Total 500 210 70 50 Output Total 600 400 Balance -100 -190 70 50 Weight 185 lb Neck: Supple Negative JVD Respiratory: Diminished Breath Sounds at the Bases Bilaterally Cardiovascular: S1 S2 Regular Rate and Rhythm Gastrointestinal: Soft Benign Normal Bowel Sounds Ext: Negative Edema Labs: CBC, BMP 01/17/18 05:30 01/17/18 05:30 Assessment/Plan ASSESSMENT: 1. Aspiration Pneumonia, resolving 2. Recurrent syncope related to postural hypotension referable to profound dysautonomia post head and neck radiation therapy 3. HTN, labile blood pressure 4. CAD non-obstructive CAD, angina pectoris 5. Diastolic LV dysfuntion with clinical class 0 NYHA classification LV failure 6. Hyperlipidemia 7. Hypothyroidism 8. 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 Benign prostatic hypertrophy PLAN: 1. Continue Norvasc at the above noted dosage with caution related to the above noted profound dysautonomia 2. Continue Midodrine at the above noted dosage as needed 3. Continue ASA 4. Continue Crestor 5. Antibiotic as per the primary team Kirstin Guardado M.D.
--- NOTE | 2018-01-20 12:27 | PN ---
Progress Note, Physician History of Present Illness: PULMONARY ALERT,FEELING BETTER,-RESP DISTRESS,MILD COUGH - Current Medication List Current Medications: Active Medications Acetaminophen (Tylenol -) 650 mg PO Q4H PRN PRN Reason: FEVER Last Admin: 01/17/18 13:43 Dose: 650 mg Albuterol/Ipratropium (Duoneb -) 1 amp NEB Q4H PRN PRN Reason: SHORTNESS OF BREATH Amlodipine Besylate (Norvasc -) 5 mg PO DAILY [facility] Last Admin: 01/20/18 09:35 Dose: Not Given Aspirin (Asa -) 81 mg PO DAILY [facility] Last Admin: 01/20/18 09:44 Dose: 81 mg Gabapentin (Neurontin -) 100 mg PO TID [facility] Last Admin: 01/20/18 06:03 Dose: 100 mg Heparin Sodium (Porcine) (Heparin -) 5,000 unit SQ BID [facility] Last Admin: 01/20/18 09:44 Dose: 5,000 unit Piperacillin Sod/Tazobactam (Sod 3.375 gm/ Dextrose) 50 mls @ 100 mls/hr IVPB Q8H-IV [facility]; Protocol Last Admin: 01/20/18 09:36 Dose: 100 mls/hr Levothyroxine Sodium (Synthroid -) 125 mcg PO DAILY@0700 [facility] Last Admin: 01/20/18 06:03 Dose: 125 mcg Midodrine (Proamatine -) 5 mg PO BID-MID [facility] Last Admin: 01/20/18 09:35 Dose: Not Given Pt's Won Med_Non- Formulary Med_ Trospium 20mg Tab 1 each PO BID [facility] Last Admin: 01/20/18 09:43 Dose: 1 each Rosuvastatin Calcium (Crestor -) 20 mg PO HS [facility] Last Admin: 01/19/18 21:24 Dose: 20 mg - Objective Vital Signs: Vital Signs Temperature 97.2 F L 01/20/18 10:00 Pulse Rate 75 01/20/18 10:00 Respiratory Rate 18 01/20/18 10:00 Blood Pressure 114/73 01/20/18 10:00 O2 Sat by Pulse Oximetry (%) 97 01/20/18 10:31 Constitutional: Yes: Well Nourished, Calm Eyes: Yes: WNL HENT: Yes: WNL Neck: Yes: WNL Cardiovascular: Yes: Regular Rate and Rhythm, S1, S2 Respiratory: Yes: Rales (BIBASAILR CRACKLES) Gastrointestinal: Yes: Normal Bowel Sounds, Soft Extremities: Yes: WNL Edema: No Labs: CBC, BMP Problem List - Problems (1) CAD (coronary artery disease) Code(s): I25.10 - ATHSCL HEART DISEASE OF [place] CORONARY ARTERY W/O ANG PCTRS Qualifiers: Coronary Disease-Associated Artery/Lesion type: [place] artery [place] vs. transplanted heart: [place] heart Associated angina: without angina Qualified Code(s): I25.10 - Atherosclerotic heart disease of [place] coronary artery without angina pectoris (2) Dizziness Code(s): R42 - DIZZINESS AND GIDDINESS (3) PNA (pneumonia) Code(s): J18.9 - PNEUMONIA, UNSPECIFIED ORGANISM Qualifiers: Pneumonia type: aspiration pneumonia (4) Aspiration pneumonia Code(s): J69.0 - PNEUMONITIS DUE TO INHALATION OF FOOD AND VOMIT Qualifiers: Laterality: bilateral Lung location: lower lobe of lung (5) Autonomic postural hypotension Code(s): I95.1 - ORTHOSTATIC HYPOTENSION (6) Benign prostatic hypertrophy Code(s): N40.0 - BENIGN PROSTATIC HYPERPLASIA WITHOUT LOWER URINRY TRACT SYMP (7) History of throat cancer Code(s): Z85.819 - PRSNL HX OF MALIG NEOPLM OF UNSP SITE LIP,ORAL CAV,& PHARYNX (8) Orthostatic hypotension Code(s): I95.1 - ORTHOSTATIC HYPOTENSION Assessment/Plan IMP PNEUMONIA LIKELY ASPIRATION AUTONOMIC DYSFUNCTION LABILE BP DIZZINESS H/O PHARYNGEAL CA S/P RT ANEMIA DM PLAN ABX PER ID O2 INHALED BRONCHODILATORS F/U CHEST X-RAYS MONITOR BP DR UMANA Problem List - Problems (1) CAD (coronary artery disease) Code(s): I25.10 - ATHSCL HEART DISEASE OF [place] CORONARY ARTERY W/O ANG PCTRS (2) Dizziness Code(s): R42 - DIZZINESS AND GIDDINESS (3) PNA (pneumonia) Code(s): J18.9 - PNEUMONIA, UNSPECIFIED ORGANISM (4) Aspiration pneumonia Code(s): J69.0 - PNEUMONITIS DUE TO INHALATION OF FOOD AND VOMIT (5) Autonomic postural hypotension Code(s): I95.1 - ORTHOSTATIC HYPOTENSION (6) Benign prostatic hypertrophy Code(s): N40.0 - BENIGN PROSTATIC HYPERPLASIA WITHOUT LOWER URINRY TRACT SYMP (7) History of throat cancer Code(s): Z85.819 - PRSNL HX OF MALIG NEOPLM OF UNSP SITE LIP,ORAL CAV,& PHARYNX (8) Orthostatic hypotension Code(s): I95.1 - ORTHOSTATIC HYPOTENSION
--- NOTE | 2018-01-20 18:28 | PN ---
Progress Note, Physician Chief Complaint: AWAKE ALERT FEELING BETTER EVENTS AND NOTES REVIEWED - Current Medication List Current Medications: Active Medications Acetaminophen (Tylenol -) 650 mg PO Q4H PRN PRN Reason: FEVER Last Admin: 01/17/18 13:43 Dose: 650 mg Albuterol/Ipratropium (Duoneb -) 1 amp NEB Q4H PRN PRN Reason: SHORTNESS OF BREATH Amlodipine Besylate (Norvasc -) 5 mg PO DAILY [facility] Last Admin: 01/20/18 09:35 Dose: Not Given Aspirin (Asa -) 81 mg PO DAILY [facility] Last Admin: 01/20/18 09:44 Dose: 81 mg Gabapentin (Neurontin -) 100 mg PO TID [facility] Last Admin: 01/20/18 14:58 Dose: 100 mg Heparin Sodium (Porcine) (Heparin -) 5,000 unit SQ BID [facility] Last Admin: 01/20/18 09:44 Dose: 5,000 unit Piperacillin Sod/Tazobactam (Sod 3.375 gm/ Dextrose) 50 mls @ 100 mls/hr IVPB Q8H-IV [facility]; Protocol Last Admin: 01/20/18 09:36 Dose: 100 mls/hr Levothyroxine Sodium (Synthroid -) 125 mcg PO DAILY@0700 [facility] Last Admin: 01/20/18 06:03 Dose: 125 mcg Midodrine (Proamatine -) 5 mg PO BID-MID [facility] Last Admin: 01/20/18 09:35 Dose: Not Given Pt's Won Med_Non- Formulary Med_ Trospium 20mg Tab 1 each PO BID [facility] Last Admin: 01/20/18 09:43 Dose: 1 each Rosuvastatin Calcium (Crestor -) 20 mg PO HS [facility] Last Admin: 01/19/18 21:24 Dose: 20 mg - Objective Vital Signs: Vital Signs Temperature 98.0 F 01/20/18 13:45 Pulse Rate 81 01/20/18 13:45 Respiratory Rate 18 01/20/18 13:45 Blood Pressure 152/107 H 01/20/18 13:45 O2 Sat by Pulse Oximetry (%) 97 01/20/18 10:31 Constitutional: Yes: No Distress Eyes: Yes: WNL HENT: Yes: WNL Neck: Yes: WNL Cardiovascular: Yes: WNL Respiratory: Yes: Diminished, On Nasal O2 Gastrointestinal: Yes: WNL Genitourinary: Yes: WNL Musculoskeletal: Yes: WNL Extremities: Yes: WNL Edema: No Peripheral Pulses WNL: Yes Integumentary: Yes: WNL Wound/Incision: Yes: Clean/Dry Neurological: Yes: WNL ...Motor Strength: WNL Psychiatric: Yes: WNL Labs: CBC, BMP 01/17/18 05:30 01/17/18 05:30 Problem List - Problems (1) CAD (coronary artery disease) Code(s): I25.10 - ATHSCL HEART DISEASE OF [place] CORONARY ARTERY W/O ANG PCTRS Qualifiers: Coronary Disease-Associated Artery/Lesion type: [place] artery [place] vs. transplanted heart: [place] heart Associated angina: without angina Qualified Code(s): I25.10 - Atherosclerotic heart disease of [place] coronary artery without angina pectoris (2) Dizziness Code(s): R42 - DIZZINESS AND GIDDINESS (3) PNA (pneumonia) Code(s): J18.9 - PNEUMONIA, UNSPECIFIED ORGANISM Qualifiers: Pneumonia type: aspiration pneumonia (4) Aspiration into respiratory tract Code(s): T17.908A - UNSP FB IN RESP TRACT, PART UNSP CAUSING OTH INJURY, INIT Qualifiers: Encounter type: initial encounter Qualified Code(s): T17.908A - Unspecified foreign body in respiratory tract, part unspecified causing other injury, initial encounter (5) Aspiration pneumonia Code(s): J69.0 - PNEUMONITIS DUE TO INHALATION OF FOOD AND VOMIT Qualifiers: Laterality: bilateral Lung location: lower lobe of lung (6) Autonomic postural hypotension Code(s): I95.1 - ORTHOSTATIC HYPOTENSION (7) Benign prostatic hypertrophy Code(s): N40.0 - BENIGN PROSTATIC HYPERPLASIA WITHOUT LOWER URINRY TRACT SYMP Assessment/Plan IV ABX PER ID NEBS O2 SUPPORT OOB TO CHAIR DVT PROPHYLAXIS CARDIO EVAL FOR FLUCTUATIONG BP
[2018-01-20] MEDS: ROSUVASTATIN CA 10 MG TABLET (FP) PO SCH (21:45)
[2018-01-21] MEDS ORDERED: PIPERACILLIN/TAZOBACTAM 3.375 GM VIAL IVPB ONE ×2 (01:29→09:19)
[2018-01-21] MEDS ORDERED: DEXTROSE 5%-WATER - 50 ML IVPB ONE ×2 (01:30→09:19)
[2018-01-21] MEDS: PIPERACILLIN/TAZOB 3.375 GM 3.375 GM in DEXTROSE 5%-WATER - 50 ML IVPB SCH ×2 (01:31→09:26)
[2018-01-21] MEDS: LEVOTHYROXINE NA 125 MCG TABLET (FP) PO SCH (06:35)
[2018-01-21] MEDS: GABAPENTIN 100 MG CAPSULE (FP) PO SCH ×2 (06:35→14:14)
--- NOTE | 2018-01-21 08:49 | PN ---
Progress Note, Physician - Current Medication List Current Medications: Active Medications Acetaminophen (Tylenol -) 650 mg PO Q4H PRN PRN Reason: FEVER Last Admin: 01/17/18 13:43 Dose: 650 mg Albuterol/Ipratropium (Duoneb -) 1 amp NEB Q4H PRN PRN Reason: SHORTNESS OF BREATH Amlodipine Besylate (Norvasc -) 5 mg PO DAILY [facility] Last Admin: 01/20/18 09:35 Dose: Not Given Aspirin (Asa -) 81 mg PO DAILY [facility] Last Admin: 01/20/18 09:44 Dose: 81 mg Gabapentin (Neurontin -) 100 mg PO TID [facility] Last Admin: 01/21/18 06:35 Dose: 100 mg Heparin Sodium (Porcine) (Heparin -) 5,000 unit SQ BID [facility] Last Admin: 01/20/18 21:55 Dose: 5,000 unit Piperacillin Sod/Tazobactam (Sod 3.375 gm/ Dextrose) 50 mls @ 100 mls/hr IVPB Q8H-IV [facility]; Protocol Last Admin: 01/21/18 01:31 Dose: 100 mls/hr Levothyroxine Sodium (Synthroid -) 125 mcg PO DAILY@0700 [facility] Last Admin: 01/21/18 06:35 Dose: 125 mcg Midodrine (Proamatine -) 5 mg PO BID-MID [facility] Last Admin: 01/20/18 18:44 Dose: Not Given Pt's Won Med_Non- Formulary Med_ Trospium 20mg Tab 1 each PO BID [facility] Last Admin: 01/20/18 21:55 Dose: 1 each Rosuvastatin Calcium (Crestor -) 20 mg PO HS [facility] Last Admin: 01/20/18 21:45 Dose: 20 mg - Objective Vital Signs: Vital Signs Temperature 97.6 F 01/21/18 06:00 Pulse Rate 68 01/21/18 06:00 Respiratory Rate 19 01/21/18 06:00 Blood Pressure 128/72 01/21/18 06:00 O2 Sat by Pulse Oximetry (%) 95 01/20/18 21:00 Cardiovascular: Yes: S1, S2 Respiratory: Yes: Regular, CTA Bilaterally Gastrointestinal: Yes: Normal Bowel Sounds, Soft Labs: CBC, BMP 01/17/18 05:30 01/17/18 05:30 Assessment/Plan - Problems (1) Aspiration pneumonia Assessment/Plan: -NPO except meds -CXR---Repeat noted -Nasal O2 PRN -Bronchodilators -Pulmonary and ID follow up -Also seen by BUILDING SERVICE WORKER -Repeat MBS not indicated at this time -On IV Zosyn 3.375 U0M--oahuwjgm po if ok with id -Legionella culture pending Code(s): J69.0 - PNEUMONITIS DUE TO INHALATION OF FOOD AND VOMIT Qualifiers: Laterality: bilateral Lung location: lower lobe of lung (2) Autonomic postural hypotension Assessment/Plan: -Seen by Cardiology -Chronic -Maintains pressure with midodrine and amlodipine -Compression stockings Code(s): I95.1 - ORTHOSTATIC HYPOTENSION (3) History of throat cancer Assessment/Plan: -Has seen ENT [facility] Code(s): Z85.819 - PRSNL HX OF MALIG NEOPLM OF UNSP SITE LIP,ORAL CAV,& PHARYNX see problem list Physical therapy DVT prophylaxis
[2018-01-21] MEDS ORDERED: PT OWN MED DRAWER 7, Y5N ONE (09:19)
[2018-01-21] MEDS: MIDODRINE HCL 5 MG TABLET PO SCH (09:26)
[2018-01-21] MEDS: amLODIPine BESYLATE 5 MG TABLET (FP) PO SCH (09:27)
[2018-01-21] MEDS: HEPARIN NA (PORCINE) 5,000 UNITS/ML 1ML VIAL SQ SCH (09:28)
[2018-01-21] MEDS: TROSPIUM PO SCH (09:28)
[2018-01-21] MEDS: ASPIRIN 81 MG CHEWABLE TABLETS PO SCH (09:28)
--- NOTE | 2018-01-21 10:08 | PN ---
Progress Note, Physician History of Present Illness: Cough improved, denies fevers, chills, dyspnea, worsening orthostasis. - Current Medication List Current Medications: Active Medications Acetaminophen (Tylenol -) 650 mg PO Q4H PRN PRN Reason: FEVER Last Admin: 01/17/18 13:43 Dose: 650 mg Albuterol/Ipratropium (Duoneb -) 1 amp NEB Q4H PRN PRN Reason: SHORTNESS OF BREATH Amlodipine Besylate (Norvasc -) 5 mg PO DAILY [facility] Last Admin: 01/21/18 09:27 Dose: Not Given Aspirin (Asa -) 81 mg PO DAILY [facility] Last Admin: 01/21/18 09:28 Dose: 81 mg Gabapentin (Neurontin -) 100 mg PO TID [facility] Last Admin: 01/21/18 06:35 Dose: 100 mg Heparin Sodium (Porcine) (Heparin -) 5,000 unit SQ BID [facility] Last Admin: 01/21/18 09:28 Dose: 5,000 unit Piperacillin Sod/Tazobactam (Sod 3.375 gm/ Dextrose) 50 mls @ 100 mls/hr IVPB Q8H-IV [facility]; Protocol Last Admin: 01/21/18 09:26 Dose: 100 mls/hr Levothyroxine Sodium (Synthroid -) 125 mcg PO DAILY@0700 [facility] Last Admin: 01/21/18 06:35 Dose: 125 mcg Midodrine (Proamatine -) 5 mg PO BID-MID [facility] Last Admin: 01/21/18 09:26 Dose: Not Given Pt's Won Med_Non- Formulary Med_ Trospium 20mg Tab 1 each PO BID [facility] Last Admin: 01/21/18 09:28 Dose: 1 each Rosuvastatin Calcium (Crestor -) 20 mg PO HS [facility] Last Admin: 01/20/18 21:45 Dose: 20 mg - Objective Vital Signs: Vital Signs Temperature 97.6 F 01/21/18 06:00 Pulse Rate 68 01/21/18 06:00 Respiratory Rate 19 01/21/18 06:00 Blood Pressure 128/72 01/21/18 06:00 O2 Sat by Pulse Oximetry (%) 95 01/20/18 21:00 Constitutional: Yes: No Distress, Calm, Thin Neck: Yes: Supple Cardiovascular: Yes: Regular Rate and Rhythm Respiratory: Yes: Regular, Diminished Gastrointestinal: Yes: Normal Bowel Sounds, Soft, Other (PEG in situ) Edema: No Labs: CBC, BMP 01/17/18 05:30 01/17/18 05:30 Problem List - Problems (1) CAD (coronary artery disease) Code(s): I25.10 - ATHSCL HEART DISEASE OF [place] CORONARY ARTERY W/O ANG PCTRS Qualifiers: Coronary Disease-Associated Artery/Lesion type: [place] artery [place] vs. transplanted heart: [place] heart Associated angina: without angina Qualified Code(s): I25.10 - Atherosclerotic heart disease of [place] coronary artery without angina pectoris (2) Aspiration pneumonia Code(s): J69.0 - PNEUMONITIS DUE TO INHALATION OF FOOD AND VOMIT Qualifiers: Laterality: bilateral Lung location: lower lobe of lung (3) Autonomic postural hypotension Code(s): I95.1 - ORTHOSTATIC HYPOTENSION (4) Carotid stenosis Code(s): I65.29 - OCCLUSION AND STENOSIS OF UNSPECIFIED CAROTID ARTERY (5) HLD (hyperlipidemia) Code(s): E78.5 - HYPERLIPIDEMIA, UNSPECIFIED Qualifiers: Hyperlipidemia type: pure hypercholesterolemia Qualified Code(s): E78.00 - Pure hypercholesterolemia, unspecified; E78.0 - Pure hypercholesterolemia (6) History of throat cancer Code(s): Z85.819 - PRSNL HX OF MALIG NEOPLM OF UNSP SITE LIP,ORAL CAV,& PHARYNX (7) Hypothyroid Code(s): E03.9 - HYPOTHYROIDISM, UNSPECIFIED Qualifiers: Hypothyroidism type: unspecified Qualified Code(s): E03.9 - Hypothyroidism , unspecified (8) Labile hypertension Code(s): I10 - ESSENTIAL (PRIMARY) HYPERTENSION (9) Orthostatic hypotension Code(s): I95.1 - ORTHOSTATIC HYPOTENSION Assessment/Plan Holter: SR freq PAC Echo: 07/04/2017 Echo: Normal LV and RV size and fxn, mild LAE, mild AR Lexisan Myoview: 01/31/2016 No ischemia, LVEF 67% 1. Resolving Aspiration Pneumonia with chronic aspiration and dysphagia post PEG 2. 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 Non-obstructive CAD, angina pectoris 3. Hyperlipidemia 4. Hypothyroidism 5. Benign prostatic hypertrophy 6. Diastolic dysfunction PLAN: 1. Continue Norvasc 5 qd and Midodrine 5 bid prn SBP<90 mmHg. Continue ASA 81 qd and Crestor 20 qhs 2. Continue empiric antibiotic course and Supplemental O2 as needed 3. Enteral feeds and DVT prophylaxiss 4. Consider trial of treatment with Northera (a new agent for neurogenic orthostatic hypotension) 5. Nutrition via PEG
--- NOTE | 2018-01-21 12:45 | DS ---
Physical Examination Vital Signs: Vital Signs Temperature 97.6 F 01/21/18 10:00 Pulse Rate 77 01/21/18 10:00 Respiratory Rate 18 01/21/18 10:00 Blood Pressure 151/107 H 01/21/18 10:00 O2 Sat by Pulse Oximetry (%) 99 01/21/18 09:00 Labs: CBC, BMP 01/17/18 05:30 01/17/18 05:30 Discharge Summary Reason For Visit: DIZZINESS Current Active Problems CAD (coronary artery disease) (Acute) Dizziness (Acute) PNA (pneumonia) (Acute) Condition: Improved - Instructions Disposition: HOME - Home Medications Comprehensive Discharge Medication List: Ambulatory Orders Aspirin [ASA -] 81 mg PO DAILY 10/20/15 Cholecalciferol (Vitamin D3) [Vitamin D3] 2,000 unit PO DAILY 10/20/15 Cyanocobalamin (Vitamin B-12) [Vitamin B-12] 1,000 mcg PO DAILY 10/20/15 Levothyroxine Sodium [Unithroid] 125 mcg PO DAILY 10/20/15 Rosuvastatin Calcium [Crestor] 10 mg PO HS 10/20/15 Acetaminophen [Tylenol .Regular Strength -] 650 mg PO Q6H PRN tablet 07/06/17 Midodrine HCl [Proamatine -] 5 mg PO BID-MID PRN #60 tablet 07/06/17 Albuterol 0.083% Nebulizer Malissa [Ventolin 0.083% Nebulizer Soln -] 1 amp NEB PRN PRN 01/16/18 Amlodipine Besylate [Norvasc -] 5 mg PO DAILY 01/16/18 Fluticasone Prop 0.05% Nasal [Flonase -] 2 spray NS DAILY PRN 01/16/18 Gabapentin 100 mg PO TID 01/16/18 Sodium Chloride 1,000 mg MC DAILY 01/16/18 Acetaminophen [Tylenol .Regular Strength -] 650 mg PO Q4H PRN tablet 01/21/18 Albuterol 2.5/Ipratropium 0.5 [Duoneb -] 1 amp NEB Q4H PRN amp 01/21/18 Amoxicillin/Potassium Clav [Augmentin 250-62.5 mg/5 ml] 750 mg PO BID #300 ml Aspirin [ASA -] 81 mg PO DAILY tab.chew 01/21/18
--- NOTE | 2018-01-21 13:37 | PN ---
Progress Note, Physician History of Present Illness: PULMONARY ALERT,NO DISTRESS,LESS COUGH - Current Medication List Current Medications: Active Medications Acetaminophen (Tylenol -) 650 mg PO Q4H PRN PRN Reason: FEVER Last Admin: 01/17/18 13:43 Dose: 650 mg Albuterol/Ipratropium (Duoneb -) 1 amp NEB Q4H PRN PRN Reason: SHORTNESS OF BREATH Amlodipine Besylate (Norvasc -) 5 mg PO DAILY [facility] Last Admin: 01/21/18 09:27 Dose: Not Given Aspirin (Asa -) 81 mg PO DAILY [facility] Last Admin: 01/21/18 09:28 Dose: 81 mg Gabapentin (Neurontin -) 100 mg PO TID [facility] Last Admin: 01/21/18 06:35 Dose: 100 mg Heparin Sodium (Porcine) (Heparin -) 5,000 unit SQ BID [facility] Last Admin: 01/21/18 09:28 Dose: 5,000 unit Piperacillin Sod/Tazobactam (Sod 3.375 gm/ Dextrose) 50 mls @ 100 mls/hr IVPB Q8H-IV [facility]; Protocol Last Admin: 01/21/18 09:26 Dose: 100 mls/hr Levothyroxine Sodium (Synthroid -) 125 mcg PO DAILY@0700 [facility] Last Admin: 01/21/18 06:35 Dose: 125 mcg Midodrine (Proamatine -) 5 mg PO BID-MID [facility] Last Admin: 01/21/18 09:26 Dose: Not Given Pt's Won Med_Non- Formulary Med_ Trospium 20mg Tab 1 each PO BID [facility] Last Admin: 01/21/18 09:28 Dose: 1 each Rosuvastatin Calcium (Crestor -) 20 mg PO HS [facility] Last Admin: 01/20/18 21:45 Dose: 20 mg - Objective Vital Signs: Vital Signs Temperature 97.6 F 01/21/18 10:00 Pulse Rate 77 01/21/18 10:00 Respiratory Rate 18 01/21/18 10:00 Blood Pressure 151/107 H 01/21/18 10:00 O2 Sat by Pulse Oximetry (%) 99 01/21/18 09:00 Constitutional: Yes: Well Nourished, Calm Eyes: Yes: WNL HENT: Yes: WNL Neck: Yes: WNL Cardiovascular: Yes: Regular Rate and Rhythm, S1, S2 Respiratory: Yes: Rales (BIBASILAR RALES) Gastrointestinal: Yes: Normal Bowel Sounds, Soft Extremities: Yes: WNL Edema: No Labs: CBC, BMP Problem List - Problems (1) CAD (coronary artery disease) Code(s): I25.10 - ATHSCL HEART DISEASE OF [place] CORONARY ARTERY W/O ANG PCTRS Qualifiers: Coronary Disease-Associated Artery/Lesion type: [place] artery [place] vs. transplanted heart: [place] heart Associated angina: without angina Qualified Code(s): I25.10 - Atherosclerotic heart disease of [place] coronary artery without angina pectoris (2) Dizziness Code(s): R42 - DIZZINESS AND GIDDINESS (3) PNA (pneumonia) Code(s): J18.9 - PNEUMONIA, UNSPECIFIED ORGANISM Qualifiers: Pneumonia type: aspiration pneumonia (4) Aspiration pneumonia Code(s): J69.0 - PNEUMONITIS DUE TO INHALATION OF FOOD AND VOMIT Qualifiers: Laterality: bilateral Lung location: lower lobe of lung (5) Autonomic postural hypotension Code(s): I95.1 - ORTHOSTATIC HYPOTENSION (6) Benign prostatic hypertrophy Code(s): N40.0 - BENIGN PROSTATIC HYPERPLASIA WITHOUT LOWER URINRY TRACT SYMP (7) History of throat cancer Code(s): Z85.819 - PRSNL HX OF MALIG NEOPLM OF UNSP SITE LIP,ORAL CAV,& PHARYNX (8) Orthostatic hypotension Code(s): I95.1 - ORTHOSTATIC HYPOTENSION Assessment/Plan IMP PNEUMONIA LIKELY ASPIRATION IMPROVING AUTONOMIC DYSFUNCTION LABILE BP DIZZINESS H/O PHARYNGEAL CA S/P RT ANEMIA DM PLAN ABX O2 INHALED BRONCHODILATORS F/U CHEST X-RAYS MONITOR BP DR UMANA Problem List - Problems (1) CAD (coronary artery disease) Code(s): I25.10 - ATHSCL HEART DISEASE OF [place] CORONARY ARTERY W/O ANG PCTRS (2) Dizziness Code(s): R42 - DIZZINESS AND GIDDINESS (3) PNA (pneumonia) Code(s): J18.9 - PNEUMONIA, UNSPECIFIED ORGANISM (4) Aspiration pneumonia Code(s): J69.0 - PNEUMONITIS DUE TO INHALATION OF FOOD AND VOMIT (5) Autonomic postural hypotension Code(s): I95.1 - ORTHOSTATIC HYPOTENSION (6) Benign prostatic hypertrophy Code(s): N40.0 - BENIGN PROSTATIC HYPERPLASIA WITHOUT LOWER URINRY TRACT SYMP (7) History of throat cancer Code(s): Z85.819 - PRSNL HX OF MALIG NEOPLM OF UNSP SITE LIP,ORAL CAV,& PHARYNX (8) Orthostatic hypotension Code(s): I95.1 - ORTHOSTATIC HYPOTENSION
[2018-01-21 14:51] VITALS: BP 125/71; PULSE 78; TEMP 98.1
== END 2018-01-21 16:45 | disposition home or self-care (01) | DRG 178 ==
LOC: JER 03:26 → JERBED 06:51 → J4W 22:42 → J4S 01-19 16:32
PROVIDERS: ADMIT Internal Medicine; ATTEND Family Medicine
DX: J69.0 Pneumonitis due to inhalation of food and vomit (principal); G90.3 Multi-system degeneration of the autonomic nervous system; N40.0 Benign prostatic hyperplasia without lower urinary tract symptoms; E03.9 Hypothyroidism, unspecified; E78.5 Hyperlipidemia, unspecified; I10 Essential (primary) hypertension; K21.9 Gastro-esophageal reflux disease without esophagitis; E11.9 Type 2 diabetes mellitus without complications; R42 Dizziness and giddiness; I25.10 Atherosclerotic heart disease of native coronary artery without angina pectoris; N28.9 Disorder of kidney and ureter, unspecified; D64.9 Anemia, unspecified; I65.29 Occlusion and stenosis of unspecified carotid artery; G90.4 Autonomic dysreflexia; Z85.810 Personal history of malignant neoplasm of tongue; Z85.819 Personal history of malignant neoplasm of unspecified site of lip, oral cavity, and pharynx; Z85.01 Personal history of malignant neoplasm of esophagus; Z93.1 Gastrostomy status
CPT/HCPCS: 36415; 70450-TC; 70544-TC; 70547-TC; 70551-TC; 71045-TC-FY; 71046-TC-FY; 80053; 80061; 82550; 82728; 83540; 83550; 83605; 83721; 83735; 84100; 84443; 84484; 85025; 85027; 87040; 87070; 87186; 87205; 87804; 87899; 93005; 93010; 97116-GP; 97161-GP; 99285-25; J0131; J1644

== ENCOUNTER 2018-02-14 05:05 | Inpatient (IN) | payer OTHER, BC ==
--- NOTE | 2018-02-14 05:16 | PDOC ---
Attending Attestation - Resident Resident Name: David Jaimes - ED Attending Attestation I have performed the following: I have examined & evaluated the patient, The case was reviewed & discussed with the resident, I agree w/resident's findings & plan - HPI HPI: 02/14/18 06:51 Pt comes with 3 syncopal episodes, which is noral for him ever since he receieved radiation to the head and neck for his throat cancer. He states that he is often on our ER for HTN or hypotension and that he has meds for both at home, as given by Dr. Murillo, his PMD. Pt has a fever today, which made him come to the ER. Pt has a fever, but no localizing symptoms. He has a hx of aspirating, and thus has a PEG tube in place. Pt is likely having microaspirations, due to aspiration of his sputum, and oral mary. - Physicial Exam PE: 02/14/18 06:54 Agree with resident exam. Lungs clear bilat. No suprapubic pain and no flank pain. Pt has no abdominal tenderness and his PEG site is no cellulitic. - Medical Decision Making 02/14/18 06:55 Pt likely has microaspiration into the right hilar area.. Pt will be treated with IV rocephin and metronidazole. We are awaiting collection of his urine. He will be admitted to the hospitalist. team. Heart Score/ECG Review - ECG Intrepretation Rhythm: Regular Rhythm - [place]: Normal - P and OK Prominent R with upright T in V1 (true posterior OK): No Delta Wave(s) Present: No WPW: No - QRS Poor R Wave Progression: No Q Wave Present: No - ST and T Early Repolarization: No Non Specific ST-T Wave changes: No Flattened T Waves: No Prolonged Q-T Interval: No - ECG Impressions Normal ECG: Yes Non-specific ST Elevation: No Ischemic Changes: No Bradycardia: No Torsades liz Pointes: No WPW: No
[2018-02-14 05:57] LABS: BASO % 0.2 % (0-2.0); EOS % 0.6 % (0-4.5); HEMATOCRIT 32.4 % (35.4-49); HEMOGLOBIN 10.4 GM/dL (11.7-16.9); LYMPH % 5.6 % (8-40); MCHC 32.1 g/dl (32.0-35.9); MEAN PLT VOLUME 8.1 fl (7.5-11.1); MONO % 6.3 % (3.8-10.2); NEUT % 87.3 % (42.8-82.8); PLATELET COUNT 184 K/MM3 (134-434); RBC 3.86 M/mm3 (4.00-5.60); WHITE BLOOD COUNT 10.1 K/mm3 (4.0-10.0)
--- NOTE | 2018-02-14 05:57 | PDOC ---
History of Present Illness - General Chief Complaint: Syncope/Near Syncope Stated Complaint: WEAKNESS Time Seen by Provider: 02/14/18 05:09 History Source: Patient Exam Limitations: No Limitations - History of Present Illness Initial Comments: 02/14/18 05:52 The patient is a 72M with a PMH of pharyngeal CA status post radiation therapy complicated by autonomic stability with labile blood pressures, occasionally symptomatic with lightheadedness, also complicated by chronic dysphasia who presents to the ER after having a syncopal episode, cough, and fevers. The patient states that he's had syncopal episodes almost daily. However, he's had a cough for "a while" with fevers x 2 days. He denies CP, SOB, nausea, vomiting , but admits to prior aspiration PNA. Past History - Past Medical History Allergies/Adverse Reactions: Allergies Allergy/AdvReac Type Severity Reaction Status Date / Time tamsulosin HCl [From Flomax] AdvReac Intermediate dizziness Verified 02/14/18 06 :07 Home Medications: Ambulatory Orders Aspirin [ASA -] 81 mg PO DAILY 10/20/15 Cholecalciferol (Vitamin D3) [Vitamin D3] 2,000 unit PO DAILY 10/20/15 Cyanocobalamin (Vitamin B-12) [Vitamin B-12] 1,000 mcg PO DAILY 10/20/15 Levothyroxine Sodium [Unithroid] 125 mcg PO DAILY 10/20/15 Rosuvastatin Calcium [Crestor] 10 mg PO HS 10/20/15 Acetaminophen [Tylenol .Regular Strength -] 650 mg PO Q6H PRN tablet 07/06/17 Midodrine HCl [Proamatine -] 5 mg PO BID-MID PRN #60 tablet 07/06/17 Albuterol 0.083% Nebulizer Malissa [Ventolin 0.083% Nebulizer Soln -] 1 amp NEB PRN PRN 01/16/18 Amlodipine Besylate [Norvasc -] 5 mg PO DAILY 01/16/18 Fluticasone Prop 0.05% Nasal [Flonase -] 2 spray NS DAILY PRN 01/16/18 Gabapentin 100 mg PO TID 01/16/18 Sodium Chloride 1,000 mg MC DAILY 01/16/18 Acetaminophen [Tylenol .Regular Strength -] 650 mg PO Q4H PRN tablet 01/21/18 Albuterol 2.5/Ipratropium 0.5 [Duoneb -] 1 amp NEB Q4H PRN amp 01/21/18 Aspirin [ASA -] 81 mg PO DAILY tab.chew 01/21/18 Anemia: Yes Asthma: No Cancer: Yes (Tongue and throat CA 2010) Cardiac Disorders: Yes CVA: No COPD: No CHF: No Dementia: No Diabetes: No GI Disorders: Yes (GERD) Disorders: (BPH) HTN: Yes Hypercholesterolemia: Yes Liver Disease: No Seizures: No Thyroid Disease: Yes (hypo) - Surgical History Abdominal Surgery: No Appendectomy: No Cardiac Surgery: No Cholecystectomy: No GI Surgery: Yes (G tube) Lung Surgery: No Neurologic Surgery: No Orthopedic Surgery: Yes - Immunization History Immunization Up to Date: Yes - Suicide/Smoking/Psychosocial Hx Smoking History: Never smoked Have you smoked in the past 12 months: No Hx Alcohol Use: No Drug/Substance Use Hx: No Substance Use Type: None Hx Substance Use Treatment: No Review of Systems - Review of Systems Able to Perform ROS?: Yes Comments:: 02/14/18 05:57 GENERAL/CONSTITUTIONAL: No fever or chills. No weakness. HEAD, EYES, EARS, NOSE AND THROAT: No change in vision. No ear pain or discharge. No sore throat. CARDIOVASCULAR: No chest pain, palpitations, or lightheadedness. RESPIRATORY: Positive for cough. No wheezing, shortness of breath, or hemoptysis. GASTROINTESTINAL: No nausea, vomiting, diarrhea, constipation, or abdominal pain. GENITOURINARY: No dysuria, frequency, hematuria, or change in urination. MUSCULOSKELETAL: No joint or muscle swelling or pain. No neck or back pain. SKIN: No rash or lesions. NEUROLOGIC: No headache, numbness, tingling, focal weakness, loss of consciousness, or change in strength/sensation. Is the patient limited [place] proficient: No *Physical Exam - Vital Signs Last Vital Signs Temp Pulse Resp BP Pulse Ox 99.8 F H 93 H 19 163/86 97 02/14/18 05:43 02/14/18 05:05 02/14/18 05:05 02/14/18 05:05 02/14/18 05:05 - Physical Exam Comments: 02/14/18 06:18 GENERAL: Well developed, well nourished. Awake and alert. No acute distress. HEENT: Normocephalic, atraumatic. Hearing grossly normal. Moist mucous membranes. PERRLA, EOMI. No conjunctival pallor. NECK: Supple. Full ROM. No JVD. CARDIOVASCULAR: Regular rate and rhythm. No murmurs, rubs, or gallops. PULMONARY: No evidence of respiratory distress. Coarse breath sounds present bilaterally. ABDOMINAL: Soft. Non-tender. Non-distended. No rebound or guarding. GENITOURINARY: No CVA tenderness bilaterally. MUSCULOSKELETAL: Normal range of motion at all joints. No bony deformities or tenderness. EXTREMITIES: No cyanosis. No clubbing. No edema. No calf tenderness or swelling. SKIN: Warm and dry. Normal capillary refill. No rashes. No jaundice. NEUROLOGICAL: Alert, awake, appropriate. Cranial nerves 2-12 grossly intact. Normal speech. PSYCHIATRIC: Cooperative. Good eye contact. Appropriate mood and affect. Moderate Sedation - Procedure Monitoring Vital Signs: Procedure Monitoring Vital Signs Temperature 99.8 F H 02/14/18 05:43 Pulse Rate 93 H 02/14/18 05:05 Respiratory Rate 19 02/14/18 05:05 Blood Pressure 163/86 02/14/18 05:05 O2 Sat by Pulse Oximetry (%) 97 02/14/18 05:05 ED Treatment Course - LABORATORY CBC & Chemistry Diagram: 02/14/18 05:27 02/14/18 05:27 - RADIOLOGY Radiology Studies Ordered: Category Date Time Status CHEST X-RAY PORTABLE* [RAD] Stat Radiology 02/14/18 05:09 Taken Medical Decision Making - Medical Decision Making 02/14/18 06:19 The patient is a 72M with MMP including frequent syncopal episodes who presents to the ER after having a syncopal episodes. Per , he has had a worsening cough and fever up to 102 at home. He was given motrin prior to arrival. Concern for recurrent PNA and sepsis 2/2 to PNA. CXR and labs pending. 02/14/18 06:25 Preliminary read of CXR shows hilar consolidation on R side. Will give ceftriaxone and metronidazole for presumed aspiration PNA. Will microblog for admission once labs return. 02/14/18 06:47 Pt endorsed to [facility] for admission under Dr. Murillo. *DC/Admit/Observation/Transfer Diagnosis at time of Disposition: Syncope Qualifiers: Syncope type: unspecified Qualified Code(s): R55 - Syncope and collapse Aspiration pneumonia Qualifiers: Aspiration pneumonia type: unspecified Laterality: right Lung location: unspecified part of lung Qualified Code(s): J69.0 - Pneumonitis due to inhalation of food and vomit - Discharge Dispostion Condition at time of disposition: Guarded Decision to Admit order: Yes - Referrals Referrals: Fern Murillo MD [Primary Care Provider] - - Patient Instructions - Post Discharge Activity
[2018-02-14 06:05] LABS: INR 1.13 (0.83-1.09); PROTHROMBIN TIME (PATIENT) 13.3 SEC (9.7-13.0)
[2018-02-14] MEDS ORDERED: CEFTRIAXONE 1,000 MG in DEXTROSE 5%-WATER - 50 ML IVPB ONE (06:26)
[2018-02-14 06:32] LABS: ALBUMIN 3.1 g/dl (3.4-5.0); ALK PHOS 69 U/L (45-117); ANION GAP 9 MMOL/L (8-16); BILIRUBIN,TOTAL 0.6 mg/dL (0.2-1); BLOOD UREA NITROGEN 24 mg/dL (7-18); CALCIUM 8.4 mg/dL (8.5-10.1); CHLORIDE 102 mmol/L (98-107); CO2 29 mmol/L (21-32); CREATININE 0.8 mg/dL (0.55-1.3); GLUCOSE,RANDOM 146 mg/dL (74-106); POTASSIUM 3.7 mmol/L (3.5-5.1); SGOT/AST 16 U/L (15-37); SGPT/ALT 22 U/L (13-61); SODIUM 140 mmol/L (136-145); TOT PROT 6.5 g/dl (6.4-8.2)
[2018-02-14] MEDS ORDERED: CEFTRIAXONE 1 GM/50 ML BAG ONE ×2 (06:34→13:54)
[2018-02-14 09:50] LABS: URINE APPEARANCE CLOUDY; URINE BILIRUBIN NEGATIVE (<2.0 mg/dL); URINE COLOR YELLOW; URINE GLUCOSE (UA) NEGATIVE (NEGATIVE); URINE KETONE NEGATIVE (NEGATIVE); URINE LEUK ESTERASE NEGATIVE (NEGATIVE); URINE NITRITE NEGATIVE (NEGATIVE); URINE PROTEIN NEGATIVE (NEGATIVE)
--- NOTE | 2018-02-14 11:58 | HP ---
Admitting History and Physical - Admission History of Present Illness: 72M with a PMH of pharyngeal CA status post radiation therapy complicated by autonomic stability with labile blood pressures, occasionally symptomatic with lightheadedness, also complicated by chronic dysphasia who presents to the ER after having a syncopal episode, cough, and fevers. The patient states that he' s had syncopal episodes almost daily. However, he's had a cough for "a while" with fevers x 2 days. He denies CP, SOB, nausea, vomiting, but admits to prior aspiration PNA. 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[employer] , [employer] History of Recent Travel: No Home Medications - Allergies Allergies/Adverse Reactions: Allergies Allergy/AdvReac Type Severity Reaction Status Date / Time tamsulosin HCl [From Flomax] AdvReac Intermediate dizziness Verified 02/14/18 06 :07 - Home Medications Home Medications: Ambulatory Orders Aspirin [ASA -] 81 mg PO DAILY 10/20/15 Cholecalciferol (Vitamin D3) [Vitamin D3] 2,000 unit PO DAILY 10/20/15 Cyanocobalamin (Vitamin B-12) [Vitamin B-12] 1,000 mcg PO DAILY 10/20/15 Levothyroxine Sodium [Unithroid] 125 mcg PO DAILY 10/20/15 Rosuvastatin Calcium [Crestor] 10 mg PO HS 10/20/15 Acetaminophen [Tylenol .Regular Strength -] 650 mg PO Q6H PRN tablet 07/06/17 Midodrine HCl [Proamatine -] 5 mg PO BID-MID PRN #60 tablet 07/06/17 Albuterol 0.083% Nebulizer Malissa [Ventolin 0.083% Nebulizer Soln -] 1 amp NEB PRN PRN 01/16/18 Amlodipine Besylate [Norvasc -] 5 mg PO DAILY 01/16/18 Fluticasone Prop 0.05% Nasal [Flonase -] 2 spray NS DAILY PRN 01/16/18 Gabapentin 100 mg PO TID 01/16/18 Sodium Chloride 1,000 mg MC DAILY 01/16/18 Acetaminophen [Tylenol .Regular Strength -] 650 mg PO Q4H PRN tablet 01/21/18 Albuterol 2.5/Ipratropium 0.5 [Duoneb -] 1 amp NEB Q4H PRN amp 01/21/18 Aspirin [ASA -] 81 mg PO DAILY tab.chew 01/21/18 Family Disease History - Family Disease History Family Disease History: CA: Father (G-E junction tumor), Mother (lung ca), Sister (breast ca), Other: Brother (goiter surgery) Physical Examination Vital Signs: Vital Signs Temperature 98.6 F 02/14/18 08:19 Pulse Rate 78 02/14/18 08:19 Respiratory Rate 17 02/14/18 08:19 Blood Pressure 126/75 02/14/18 08:19 O2 Sat by Pulse Oximetry (%) 100 02/14/18 08:20 Labs: CBC, BMP 02/14/18 05:27 02/14/18 05:27 Problem List - Problems (1) Aspiration pneumonia Assessment/Plan: IV ABX -ID Code(s): J69.0 - PNEUMONITIS DUE TO INHALATION OF FOOD AND VOMIT Qualifiers: Aspiration pneumonia type: unspecified Laterality: right Lung location: unspecified part of lung Qualified Code(s): J69.0 - Pneumonitis due to inhalation of food and vomit (2) Syncope Assessment/Plan: Monitor bp Code(s): R55 - SYNCOPE AND COLLAPSE Qualifiers: Syncope type: unspecified Qualified Code(s): R55 - Syncope and collapse (3) Labile hypertension Code(s): I10 - ESSENTIAL (PRIMARY) HYPERTENSION
[2018-02-14] MEDS ORDERED: FLUTICASONE PROP 0.05% 16 GM NASAL SPRAY NS PRN (13:38)
[2018-02-14] MEDS ORDERED: MIDODRINE HCL 5 MG TABLET PO PRN (13:38)
[2018-02-14] MEDS ORDERED: ACETAMINOPHEN 325 MG TABLET (FP) PO PRN (13:38)
[2018-02-14] MEDS ORDERED: ALBUTEROL SO4 2.5/IPRATROPIUM 0.5 INH SOL 3 ML VIAL.NEB. NEB PRN (13:38)
[2018-02-14] MEDS ORDERED: CEFTRIAXONE 1 GM in DEXTROSE 5%-WATER - 100 ML IVPB SCH (13:45)
[2018-02-14] MEDS: GABAPENTIN 100 MG CAPSULE (FP) PO SCH ×2 (13:59→21:23)
[2018-02-14 18:32] LABS: HEMATOCRIT 31.2 % (35.4-49); HEMOGLOBIN 10.8 GM/dL (11.7-16.9); MCH 28.6 pg (25.7-33.7); MCHC 34.5 g/dl (32.0-35.9); MEAN CELL VOLUME 82.9 fl (80-96); MEAN PLT VOLUME 8.8 fl (7.5-11.1); PLATELET COUNT 195 K/MM3 (134-434); RBC 3.76 M/mm3 (4.00-5.60); WHITE BLOOD COUNT 5.7 K/mm3 (4.0-10.0)
[2018-02-14] MEDS ORDERED: GABAPENTIN 100 MG CAPSULE (FP) ONE (21:14)
--- NOTE | 2018-02-14 21:18 | EKG ---
Test Reason : Blood Pressure : / mmHG Vent. Rate : 086 BPM Atrial Rate : 086 BPM P-R Int : 170 ms QRS Dur : 090 ms QT Int : 390 ms P-R-T Axes : 046 001 058 degrees QTc Int : 466 ms NORMAL SINUS RHYTHM NORMAL ECG WHEN COMPARED WITH ECG OF 16-JAN-2018 04:03, PREMATURE ATRIAL COMPLEXES ARE NO LONGER PRESENT Confirmed by ASHLEIGH HERBERT MD ([id number]) on 02/14/2018 9:18:31 PM Referred By: Confirmed By:ASHLEIGH HERBERT MD
[2018-02-14] MEDS: ROSUVASTATIN CA 10 MG TABLET (FP) PO SCH (21:23)
[2018-02-14 22:36] VITALS: BMI 25.0
[2018-02-15] MEDS: LEVOTHYROXINE NA 125 MCG TABLET (FP) PO SCH (06:55)
[2018-02-15] MEDS: GABAPENTIN 100 MG CAPSULE (FP) PO SCH ×3 (06:55→21:29)
[2018-02-15 07:56] LABS: BASO % 0.3 % (0-2.0); EOS % 4.2 % (0-4.5); HEMATOCRIT 31.1 % (35.4-49); HEMOGLOBIN 10.8 GM/dL (11.7-16.9); LYMPH % 16.2 % (8-40); MCH 28.8 pg (25.7-33.7); MCHC 34.7 g/dl (32.0-35.9); MEAN CELL VOLUME 82.9 fl (80-96); MEAN PLT VOLUME 8.7 fl (7.5-11.1); MONO % 10.4 % (3.8-10.2); NEUT % 68.9 % (42.8-82.8); PLATELET COUNT 199 K/MM3 (134-434); RBC 3.74 M/mm3 (4.00-5.60); RDW 15.1 % (11.9-15.9); WHITE BLOOD COUNT 4.8 K/mm3 (4.0-10.0)
[2018-02-15 08:50] LABS: ALBUMIN 3.1 g/dl (3.4-5.0); ALK PHOS 65 U/L (45-117); ANION GAP 10 MMOL/L (8-16); BILIRUBIN,TOTAL 0.5 mg/dL (0.2-1); BLOOD UREA NITROGEN 17 mg/dL (7-18); CALCIUM 8.7 mg/dL (8.5-10.1); CHLORIDE 101 mmol/L (98-107); CO2 30 mmol/L (21-32); CREATININE 0.6 mg/dL (0.55-1.3); GLUCOSE,RANDOM 83 mg/dL (74-106); POTASSIUM 3.8 mmol/L (3.5-5.1); SGOT/AST 14 U/L (15-37); SGPT/ALT 19 U/L (13-61); SODIUM 141 mmol/L (136-145); TOT PROT 6.5 g/dl (6.4-8.2)
[2018-02-15] MEDS ORDERED: SODIUM CHLORIDE 1 GM TABLET PO SCH (10:00)
[2018-02-15] MEDS ORDERED: cefTRIAXone SODIUM 1 GM VIAL ONE (11:05)
[2018-02-15] MEDS ORDERED: DEXTROSE 5%-WATER - 50 ML IVPB ONE (11:05)
[2018-02-15] MEDS ORDERED: PT OWN MED DRAWER 7, Y5N ONE (11:05)
[2018-02-15] MEDS: ASPIRIN 81 MG CHEWABLE TABLETS PO SCH (11:15)
[2018-02-15] MEDS: amLODIPine BESYLATE 5 MG TABLET (FP) PO SCH (11:15)
[2018-02-15] MEDS: CEFTRIAXONE 1 GM in DEXTROSE 5%-WATER - 50 ML IVPB SCH (11:15)
--- NOTE | 2018-02-15 14:07 | PN ---
Progress Note, Physician - Current Medication List Current Medications: Active Medications Acetaminophen (Tylenol -) 650 mg PO Q4H PRN PRN Reason: FEVER Albuterol/Ipratropium (Duoneb -) 1 amp NEB Q4H PRN PRN Reason: SHORTNESS OF BREATH Amlodipine Besylate (Norvasc -) 5 mg PO DAILY [facility] Last Admin: 02/15/18 11:15 Dose: 5 mg Aspirin (Asa -) 81 mg PO DAILY [facility] Last Admin: 02/15/18 11:15 Dose: 81 mg Fluticasone Propionate (Flonase -) 2 spray NS DAILY PRN PRN Reason: NASAL CONGESTION Gabapentin (Neurontin -) 100 mg PO TID [facility] Last Admin: 02/15/18 06:55 Dose: 100 mg Ceftriaxone Sodium 1 gm/ (Dextrose) 50 mls @ 100 mls/hr IVPB DAILY [facility]; Protocol Last Admin: 02/15/18 11:15 Dose: 100 mls/hr Levothyroxine Sodium (Synthroid -) 125 mcg PO DAILY@0700 [facility] Last Admin: 02/15/18 06:55 Dose: 125 mcg Midodrine (Proamatine -) 5 mg PO BID-MID PRN PRN Reason: MAP<65mm Hg OR SBP <90 Rosuvastatin Calcium (Crestor -) 10 mg PO HS [facility] Last Admin: 02/14/18 21:23 Dose: 10 mg Sodium Chloride (Sodium Chloride Tablet -) 1 gm PO DAILY [facility] Last Admin: 02/15/18 11:16 Dose: Not Given - Objective Vital Signs: Vital Signs Temperature 97.7 F 02/15/18 10:00 Pulse Rate 77 02/15/18 10:00 Respiratory Rate 20 02/15/18 10:00 Blood Pressure 132/74 02/15/18 10:00 O2 Sat by Pulse Oximetry (%) 97 02/15/18 09:00 Cardiovascular: Yes: S1, S2 Respiratory: Yes: Regular, CTA Bilaterally Gastrointestinal: Yes: Normal Bowel Sounds, Soft Labs: CBC, BMP 02/15/18 05:30 02/15/18 05:30 INR, PTT INR 1.13 (0.83-1.09) H 02/14/18 05:27 Problem List - Problems (1) Aspiration pneumonia Assessment/Plan: IV ABX -ID Consult -Repeat cxr--? pneumonia--maybe atelactasis Code(s): J69.0 - PNEUMONITIS DUE TO INHALATION OF FOOD AND VOMIT Qualifiers: Aspiration pneumonia type: unspecified Laterality: right Lung location: unspecified part of lung Qualified Code(s): J69.0 - Pneumonitis due to inhalation of food and vomit (2) Syncope Assessment/Plan: Monitor bp Code(s): R55 - SYNCOPE AND COLLAPSE Qualifiers: Syncope type: unspecified Qualified Code(s): R55 - Syncope and collapse (3) Labile hypertension Assessment/Plan: Monitor Code(s): I10 - ESSENTIAL (PRIMARY) HYPERTENSION
--- NOTE | 2018-02-15 19:07 | PN ---
Progress Note (short form) - Note Progress Note: ID Consult dictated R/O recurrent aspiration pneumonia Hx Laryngeal ca Hx autonomic dysfunction Await c/s Continue empiric ceftriaxone
[2018-02-15] MEDS: ROSUVASTATIN CA 10 MG TABLET (FP) PO SCH (21:29)
--- NOTE | 2018-02-16 01:03 | CONS ---
DATE OF CONSULTATION: 02/15/2018 The patient is a 72-year-old male with a history of laryngeal cancer, status post chemotherapy and radiation therapy, history of chronic dysphagia status post feeding gastrostomy and recent hospitalization for aspiration pneumonia, now evaluated for suspected recurrent aspiration. The patient was hospitalized in January of 2018 with aspiration pneumonia. He now presents with worsening cough and fever at home. Patient has had a chronic cough dating back to July. His cough increased in frequency and was associated with whitish sputum. In addition, he reports having recurrent syncopal episodes secondary to his known diagnosis of autonomic dysfunction. He was evaluated in the emergency room where he was noted to have low-grade fever and chest x-ray with increased markings at the bases bilaterally. He was empirically treated with ceftriaxone and Flagyl for presumed aspiration pneumonia. At the present time, he is awake and alert. He is ambulatory. He denies any chest pain. No complaints of dyspnea. He denies any shaking chills. No known ill contacts. Recent hospitalizations, as mentioned. No recent travel. PAST MEDICAL HISTORY: Positive for autonomic dysfunction with recurrent syncopal episodes, laryngeal cancer status post radiation and chemotherapy in 2010, hyperlipidemia, BPH, gastroesophageal reflux, hypothyroidism. PAST SURGICAL HISTORY: Status post feeding gastrostomy. ALLERGIES: FLOMAX. MEDICATIONS: Aspirin, levothyroxine, Crestor, Norvasc, Neurontin. SOCIAL HISTORY: Lives at home with his significant other. He is a nonsmoker. REVIEW OF SYSTEMS: Neurologic: Positive for recurrent syncopal episodes secondary to labile blood pressure. Cardiac: Negative chest pain or palpitations. Respiratory: As per HPI. Gastrointestinal: Status post feeding gastrostomy. Genitourinary: Negative for urinary tract infection. LABORATORY DATA: White count on admission is 10.1, presently 4.8. Hematocrit 31.1, platelet count 199, creatinine 0.6. Urinalysis is negative. Chest x-ray shows increased markings at the bases bilaterally. PHYSICAL EXAMINATION: General: He is awake and alert. He is ambulatory. He is in no acute distress. Vital Signs: Temperature 97.7, temperature maximum 99.8, blood pressure 132/74, pulse 77 and regular, respirations 20 per minute. HEENT: Sclerae anicteric. Heart Sounds: S1, S2. Lungs: Rhonchi bilaterally. Abdomen: Soft. Feeding gastrostomy tube is in place. Extremities: Negative for edema. IMPRESSION: 1. Probable recurrent aspiration pneumonia. 2. Autonomic dysfunction status post syncopal episodes. 3. Laryngeal cancer status post chemotherapy and radiation therapy. PLAN: Await cultures. Continue empiric antibiotic coverage for presumed aspiration with ceftriaxone. Sputum cultures in the past have grown mixed organisms including yeast, MRSA, and pseudomonas, which likely represented colonization. Continue supportive measures and aspiration precautions. I will follow. Thank you for the kind referral. ANDREW TURNER M.D. [id number]
[2018-02-16] MEDS: LEVOTHYROXINE NA 125 MCG TABLET (FP) PO SCH (06:17)
[2018-02-16] MEDS: GABAPENTIN 100 MG CAPSULE (FP) PO SCH (06:18)
[2018-02-16] MEDS ORDERED: cefTRIAXone SODIUM 1 GM VIAL ONE (09:58)
[2018-02-16] MEDS ORDERED: DEXTROSE 5%-WATER - 50 ML IVPB ONE (09:58)
[2018-02-16] MEDS: ASPIRIN 81 MG CHEWABLE TABLETS PO SCH (10:10)
[2018-02-16] MEDS: amLODIPine BESYLATE 5 MG TABLET (FP) PO SCH (10:10)
[2018-02-16] MEDS: CEFTRIAXONE 1 GM in DEXTROSE 5%-WATER - 50 ML IVPB SCH (10:10)
--- NOTE | 2018-02-16 11:25 | PN ---
Progress Note, Physician History of Present Illness: Awake, alert Supine in bed No new complaints No recurrent syncope Reports + blood - streaked sputum No c/o fever/ chills - Current Medication List Current Medications: Active Medications Acetaminophen (Tylenol -) 650 mg PO Q4H PRN PRN Reason: FEVER Albuterol/Ipratropium (Duoneb -) 1 amp NEB Q4H PRN PRN Reason: SHORTNESS OF BREATH Amlodipine Besylate (Norvasc -) 5 mg PO DAILY [facility] Last Admin: 02/16/18 10:10 Dose: 5 mg Aspirin (Asa -) 81 mg PO DAILY [facility] Last Admin: 02/16/18 10:10 Dose: 81 mg Fluticasone Propionate (Flonase -) 2 spray NS DAILY PRN PRN Reason: NASAL CONGESTION Gabapentin (Neurontin Oral Liquid -) 100 mg PO TID [facility] Ceftriaxone Sodium 1 gm/ (Dextrose) 50 mls @ 100 mls/hr IVPB DAILY [facility]; Protocol Last Admin: 02/16/18 10:10 Dose: 100 mls/hr Levothyroxine Sodium (Synthroid -) 125 mcg PO DAILY@0700 [facility] Last Admin: 02/16/18 06:17 Dose: 125 mcg Midodrine (Proamatine -) 5 mg PO BID-MID PRN PRN Reason: MAP<65mm Hg OR SBP <90 Rosuvastatin Calcium (Crestor -) 10 mg PO HS [facility] Last Admin: 02/15/18 21:29 Dose: 10 mg - Objective Vital Signs: Vital Signs Temperature 98.2 F 02/16/18 09:14 Pulse Rate 81 02/16/18 09:14 Respiratory Rate 20 02/16/18 09:14 Blood Pressure 139/102 H 02/16/18 09:14 O2 Sat by Pulse Oximetry (%) 97 02/15/18 20:41 Constitutional: Yes: No Distress, Thin Eyes: Yes: Conjunctiva Clear Cardiovascular: Yes: Regular Rate and Rhythm, S1, S2 Respiratory: Yes: Other (few crepitations at bases) Gastrointestinal: Yes: Normal Bowel Sounds, Soft, Other (+ GT). No: Tenderness Edema: No Labs: CBC, BMP 02/15/18 05:30 02/15/18 05:30 INR, PTT INR 1.13 (0.83-1.09) H 12/08/18 05:27 Assessment/Plan Probable recurrent aspiration pneumonia S/P Syncope Labile blood c/s/ autonomic dysfunction Laryngeal ca Continue ceftriaxone
[2018-02-16] MEDS ORDERED: MIDODRINE HCL 5 MG TABLET GT PRN (11:35)
[2018-02-16] MEDS ORDERED: ACETAMINOPHEN 650 MG/20.3 ML ORAL SOLUTION (CUPS) GT PRN (11:36)
--- NOTE | 2018-02-16 11:41 | PN ---
Progress Note, Physician Chief Complaint: EVENTS AND NOTES REVIEWED AWAKE ALERT DENIES CHEST PAIN OR SOB +DIZZINESS - Current Medication List Current Medications: Active Medications Acetaminophen (Tylenol Oral Solution -) 650 mg GT Q6H PRN PRN Reason: PAIN OR FEVER Albuterol/Ipratropium (Duoneb -) 1 amp NEB Q4H PRN PRN Reason: SHORTNESS OF BREATH Amlodipine Besylate (Norvasc -) 5 mg GT DAILY [facility] Aspirin (Asa -) [address] [facility] Last Admin: 02/16/18 10:10 Dose: 81 mg Fluticasone Propionate (Flonase -) 2 spray NS DAILY PRN PRN Reason: NASAL CONGESTION Gabapentin (Neurontin Oral Liquid -) 100 mg GT TID [facility] Ceftriaxone Sodium 1 gm/ (Dextrose) 50 mls @ 100 mls/hr IVPB DAILY [facility]; Protocol Last Admin: 02/16/18 10:10 Dose: 100 mls/hr Levothyroxine Sodium (Synthroid -) 125 mcg GT DAILY@0700 [facility] Midodrine (Proamatine -) 5 mg GT BID-MID PRN PRN Reason: MAP<65mm Hg OR SBP <90 Rosuvastatin Calcium (Crestor -) 10 mg PO HS [facility] Last Admin: 02/15/18 21:29 Dose: 10 mg - Objective Vital Signs: Vital Signs Temperature 98.2 F 02/16/18 09:14 Pulse Rate 81 02/16/18 09:14 Respiratory Rate 20 02/16/18 09:14 Blood Pressure 139/102 H 02/16/18 09:14 O2 Sat by Pulse Oximetry (%) 97 02/15/18 20:41 Constitutional: Yes: Mild Distress Eyes: Yes: WNL HENT: Yes: WNL Neck: Yes: WNL Cardiovascular: Yes: WNL Respiratory: Yes: WNL Gastrointestinal: Yes: Soft, Other (GTUBE) Genitourinary: Yes: WNL Musculoskeletal: Yes: WNL Extremities: Yes: WNL Edema: Yes Peripheral Pulses WNL: Yes Integumentary: Yes: WNL Wound/Incision: Yes: Clean/Dry Neurological: Yes: WNL ...Motor Strength: WNL Psychiatric: Yes: WNL Labs: CBC, BMP 02/15/18 05:30 02/15/18 05:30 INR, PTT INR 1.13 (0.83-1.09) H 02/14/18 05:27 Problem List - Problems (1) Aspiration pneumonia Code(s): J69.0 - PNEUMONITIS DUE TO INHALATION OF FOOD AND VOMIT Qualifiers: Aspiration pneumonia type: unspecified Laterality: right Lung location: unspecified part of lung Qualified Code(s): J69.0 - Pneumonitis due to inhalation of food and vomit (2) Syncope Code(s): R55 - SYNCOPE AND COLLAPSE Qualifiers: Syncope type: unspecified Qualified Code(s): R55 - Syncope and collapse (3) Aspiration into respiratory tract Code(s): T17.908A - UNSP FB IN RESP TRACT, PART UNSP CAUSING OTH INJURY, INIT Qualifiers: Encounter type: initial encounter Qualified Code(s): T17.908A - Unspecified foreign body in respiratory tract, part unspecified causing other injury, initial encounter (4) Benign prostatic hypertrophy Code(s): N40.0 - BENIGN PROSTATIC HYPERPLASIA WITHOUT LOWER URINRY TRACT SYMP (5) CAD (coronary artery disease) Code(s): I25.10 - ATHSCL HEART DISEASE OF [place] CORONARY ARTERY W/O ANG PCTRS Qualifiers: Coronary Disease-Associated Artery/Lesion type: [place] artery [place] vs. transplanted heart: [place] heart Associated angina: without angina Qualified Code(s): I25.10 - Atherosclerotic heart disease of [place] coronary artery without angina pectoris (6) Carotid stenosis Code(s): I65.29 - OCCLUSION AND STENOSIS OF UNSPECIFIED CAROTID ARTERY (7) Dizziness Code(s): R42 - DIZZINESS AND GIDDINESS (8) HTN (hypertension) Code(s): I10 - ESSENTIAL (PRIMARY) HYPERTENSION Qualifiers: Hypertension type: essential hypertension Qualified Code(s): I10 - Essential (primary) hypertension (9) History of throat cancer Code(s): Z85.819 - PRSNL HX OF MALIG NEOPLM OF UNSP SITE LIP,ORAL CAV,& PHARYNX (10) Hypothyroid Code(s): E03.9 - HYPOTHYROIDISM, UNSPECIFIED Qualifiers: Hypothyroidism type: unspecified Qualified Code(s): E03.9 - Hypothyroidism , unspecified Assessment/Plan IV ABX FOR UTI CHECKING LABS PT EVAL OOB TO CHAIR
[2018-02-16] MEDS ORDERED: GABAPENTIN 250 MG/5 ML ORAL SOLUTION, 470 ML BOTTLE PO SCH (14:00)
[2018-02-16] MEDS ORDERED: PT OWN MED DRAWER 7, Y5N ONE ×3 (14:43→22:48)
[2018-02-16] MEDS: GABAPENTIN 250 MG/5 ML ORAL SOLUTION, 470 ML BOTTLE GT SCH ×2 (14:57→22:49)
[2018-02-16] MEDS: ROSUVASTATIN CA 10 MG TABLET (FP) PO SCH (22:49)
[2018-02-16] MEDS: NYSTATIN/TRIAMCINOLONE TOPICAL CREAM 15 GM TUBE TP SCH (22:50)
[2018-02-17] MEDS ORDERED: PT OWN MED DRAWER 7, Y5N ONE (06:10)
[2018-02-17] MEDS: LEVOTHYROXINE NA 125 MCG TABLET (FP) GT SCH (07:02)
[2018-02-17] MEDS: GABAPENTIN 250 MG/5 ML ORAL SOLUTION, 470 ML BOTTLE GT SCH ×3 (07:03→21:36)
--- NOTE | 2018-02-17 09:21 | PN ---
Progress Note (short form) - Note Progress Note: Chief Complaint: Events noted, notes reviewed, fever and chills with recurrent syncope, denies any chest pain or dyspnea, reports cough productive of clear sputum History of Present Illness: Seen and examined on telemetry. Full consult dictated Medications: Current Medications Acetaminophen (Tylenol Oral Solution -) 650 mg GT Q6H PRN PRN Reason: PAIN OR FEVER Albuterol/Ipratropium (Duoneb -) 1 amp NEB Q4H PRN PRN Reason: SHORTNESS OF BREATH Amlodipine Besylate (Norvasc -) 5 mg GT DAILY [facility] Aspirin (Asa -) 81 mg PO DAILY [facility] Last Admin: 02/16/18 10:10 Dose: 81 mg Fluticasone Propionate (Flonase -) 2 spray NS DAILY PRN PRN Reason: NASAL CONGESTION Gabapentin (Neurontin Oral Liquid -) 100 mg GT TID [facility] Last Admin: 02/17/18 07:03 Dose: 100 mg Ceftriaxone Sodium 1 gm/ (Dextrose) 50 mls @ 100 mls/hr IVPB DAILY [facility]; Protocol Last Admin: 02/16/18 10:10 Dose: 100 mls/hr Levothyroxine Sodium (Synthroid -) 125 mcg GT DAILY@0700 [facility] Last Admin: 02/17/18 07:02 Dose: 125 mcg Midodrine (Proamatine -) 5 mg GT BID-MID PRN PRN Reason: MAP<65mm Hg OR SBP <90 Nystatin/Triamcinolone Acetonide (Mycolog Ii Cream -) 1 applic TP BID [facility] Last Admin: 02/16/18 22:50 Dose: 1 applic Rosuvastatin Calcium (Crestor -) 10 mg PO HS [facility] Last Admin: 02/16/18 22:49 Dose: 10 mg Review of Systems - Review of Systems Constitutional: no symptoms reported Respiratory: as noted above Cardiovascular: as noted above Gastrointestinal: denies Nausea, Vomiting, Diarrhea, Constipation or Abdominal Pain Genitourinary: no symptoms reported Musculoskeletal: no symptoms reported Endocrine: no symptoms reported Vital Signs: Last Vital Signs Temp Pulse Resp BP Pulse Ox 97.3 F L 75 20 129/84 96 02/17/18 06:45 02/17/18 06:45 02/17/18 06:45 02/17/18 06:45 02/16/18 21:00 Intake & Output 12/10/2502/15/18 02/16/18 02/17/18 23:59 23:59 23:59 23:59 Intake Total 1000 1010 Balance 1000 1010 Weight 185 lb Neck: Supple Negative JVD Respiratory: Diminished Breath Sounds at the Bases Bilaterally Cardiovascular: S1 S2 Regular Rate and Rhythm Gastrointestinal: Soft Benign Normal Bowel Sounds Ext: Negative Edema Labs: CBC, BMP 02/15/18 05:30 02/15/18 05:30 Hepatic Panel Total Bilirubin 0.5 mg/dL (0.2-1) 02/15/18 05:30 AST 14 U/L (15-37) L 02/15/18 05:30 ALT 19 U/L (13-61) 02/15/18 05:30 Alkaline Phosphatase 65 U/L (45-117) 02/15/18 05:30 Albumin 3.1 g/dl (3.4-5.0) L 02/15/18 05:30 INR, PTT INR 1.13 (0.83-1.09) H 02/14/18 05:27 Assessment/Plan ASSESSMENT: 1. Aspiration Pneumonia, recurrent 2. Recurrent syncope related to postural hypotension referable to profound dysautonomia post head and neck radiation therapy 3. HTN, labile blood pressure 4. CAD non-obstructive CAD, angina pectoris 5. Diastolic LV dysfuntion with clinical class 0 NYHA classification LV failure 6. Hyperlipidemia 7. Hypothyroidism 8. 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 Benign prostatic hypertrophy PLAN: 1. Continue Norvasc at the above noted dosage with caution related to the above noted profound dysautonomia 2. Continue Midodrine at the above noted dosage as needed 3. Continue ASA 4. Continue Crestor 5. Antibiotic as per the primary team 6. No additional intervention is indicated from the cardiovascular point of view , additional evaluation and F/U as outpatient referral to the [facility] at [facility] [place]/Neurology Kirstin Guardado M.D.
[2018-02-17] MEDS ORDERED: cefTRIAXone SODIUM 1 GM VIAL ONE (09:36)
[2018-02-17] MEDS ORDERED: DEXTROSE 5%-WATER - 50 ML IVPB ONE (09:37)
[2018-02-17] MEDS: ASPIRIN 81 MG CHEWABLE TABLETS PO SCH (10:47)
[2018-02-17] MEDS: amLODIPine BESYLATE 5 MG TABLET (FP) GT SCH (10:48)
[2018-02-17] MEDS: NYSTATIN/TRIAMCINOLONE TOPICAL CREAM 15 GM TUBE TP SCH ×2 (10:48→21:36)
[2018-02-17] MEDS: CEFTRIAXONE 1 GM in DEXTROSE 5%-WATER - 50 ML IVPB SCH (10:48)
--- NOTE | 2018-02-17 11:30 | CONS ---
DATE OF CONSULTATION: 02/17/2018 REQUESTING PHYSICIAN: Yosef Andrade MD CHIEF COMPLAINT: Syncopal episode, cardiovascular evaluation. A 72-year-old male well known to our service from prior hospitalizations and recent office followup, with known history of coronary artery disease; non-obstructive coronary artery disease on coronary angiography; angina pectoris; diastolic left ventricular dysfunction with clinical class 0 [employer] classification left ventricular failure; hypertensive cardiovascular disease; labile hypertension; hypercholesterolemia; hypothyroidism; throat carcinoma, post radiation therapy; with profound autonomic dysfunction with recurrent syncopal episodes related to profound orthostatic hypotension; chronic aspiration pneumonias; chronic dysphagia; post PEG tube insertion, who was recently hospitalized January 16, 2018, with aspiration pneumonia and recurrent syncopal episodes. Patient states that at home he developed fever and chills and subsequently had recurrent syncopal episodes. In view of which, EMS was contacted, and patient was transferred to [facility] for further evaluation and management. Patient currently is in bed, denies any chest discomfort. Patient denies any dyspnea. Patient reports cough productive of clear sputum. Patient denied any orthopnea or paroxysmal nocturnal dyspnea. Patient denied peripheral edema. Patient denied any palpitations. Patient reports fatigue and tiredness. PAST MEDICAL HISTORY: Coronary artery disease; nonobstructive coronary artery disease on prior coronary angiography; angina pectoris; diastolic left ventricular dysfunction with clinical class 0 [employer] classification left ventricular failure; hypertensive cardiovascular disease; labile blood pressure; hypercholesterolemia; hypothyroidism; profound autonomic dysfunction with recurrent syncopal episodes related to hypotension; throat carcinoma, post radiation therapy; recurrent aspiration pneumonias; dysphagia; post PEG insertion. SOCIAL HISTORY: Nonsmoker. FAMILY HISTORY: No history of coronary artery disease. ALLERGIES: FLOMAX. MEDICAL THERAPY CURRENTLY: Includes acetaminophen 650 mg every 6 hours as needed, DuoNeb nebulizer, Norvasc 5 mg once a day, Ecotrin 81 mg once a day, Flonase 2 sprays daily as needed, gabapentin 100 mg 3 times a day, ceftriaxone 50 mL daily, levothyroxine 125 mcg once daily, midodrine 5 mg twice a day, Crestor 10 mg once daily. REVIEW OF SYSTEMS: Head and Neck: Denies headache, photophobia, blurring of vision. Respiratory: Cough productive of clear sputum. Cardiovascular: As noted above. Gastrointestinal: Dysphagia. Denies nausea, vomiting, diarrhea. Genitourinary: No symptoms reported. Musculoskeletal: No symptoms reported. PHYSICAL EXAMINATION: Vital Signs: Blood pressure is 129/84 mmHg, pulse rate 75 beats per minute. Head and Neck: Pupils equal and reactive to light and accommodation. Extraocular muscles are intact. Anicteric sclerae. Negative JVD. No bruit appreciated. Chest: Minimal scattered rhonchi at the bases. Cardiovascular: S1 and S2 regular. No murmurs appreciated. Abdomen: PEG in situ. Soft, benign. Normoactive bowel sounds. Extremities: Negative edema. Intact distal pulses. No calf tenderness . Electrocardiogram reveals sinus rhythm with nonspecific T-wave abnormality, early transition. Chest x-ray report was noted. CBC revealed white cell count 4.8, hemoglobin 10.8, platelet count 199. INR 1.13. Basic metabolic profile revealed sodium 141, potassium 3.8, BUN of 17, creatinine 0.6, glucose 83. ASSESSMENT: 1. Aspiration pneumonia, recurrent. 2. Recurrent syncopal episodes related to postural hypotension referable to profound dysautonomia post head and neck radiation therapy. 3. Hypertensive cardiovascular disease, labile blood pressure. 4. Coronary artery disease, nonobstructive coronary artery disease, angina pectoris. 5. Diastolic left ventricular dysfunction with clinical class 0 [employer] classification left ventricular failure. 6. Hypercholesterolemia. 7. Hypothyroidism. 8. Both head and neck radiation therapy for laryngeal carcinoma. 9. History of benign prostatic hypertrophy. RECOMMENDATIONS: 1. Continuation of Norvasc at the above-noted dosage with caution related to the above-noted profound dysautonomia. 2. Continuation of midodrine therapy at the above-noted dosage as needed. Dose titration. 3. Continuation of aspirin. 4. Continuation of Crestor. 5. Antibiotics as per the primary team. 6. No additional intervention is indicated from the cardiovascular point of view. Additional evaluation and followup as outpatient with a referral to the autonomic nervous system center at [facility], Neurology Division. Thank you for the kind referral. PANFILO LE M.D. [id number]
--- NOTE | 2018-02-17 15:15 | PN ---
Progress Note, Physician Chief Complaint: AWAKE ALERT BEDSIDE DENIES CHEST PAIN OR SOB - Current Medication List Current Medications: Active Medications Acetaminophen (Tylenol Oral Solution -) 650 mg GT Q6H PRN PRN Reason: PAIN OR FEVER Albuterol/Ipratropium (Duoneb -) 1 amp NEB Q4H PRN PRN Reason: SHORTNESS OF BREATH Amlodipine Besylate (Norvasc -) 5 mg GT DAILY [facility] Last Admin: 02/17/18 10:48 Dose: 5 mg Aspirin (Asa -) 81 mg PO DAILY [facility] Last Admin: 02/17/18 10:47 Dose: 81 mg Fluticasone Propionate (Flonase -) 2 spray NS DAILY PRN PRN Reason: NASAL CONGESTION Gabapentin (Neurontin Oral Liquid -) 100 mg GT TID [facility] Last Admin: 02/17/18 07:03 Dose: 100 mg Ceftriaxone Sodium 1 gm/ (Dextrose) 50 mls @ 100 mls/hr IVPB DAILY [facility]; Protocol Last Admin: 02/17/18 10:48 Dose: 100 mls/hr Levothyroxine Sodium (Synthroid -) 125 mcg GT DAILY@0700 [facility] Last Admin: 02/17/18 07:02 Dose: 125 mcg Midodrine (Proamatine -) 5 mg GT BID-MID PRN PRN Reason: MAP<65mm Hg OR SBP <90 Nystatin/Triamcinolone Acetonide (Mycolog Ii Cream -) 1 applic TP BID [facility] Last Admin: 02/17/18 10:48 Dose: 1 applic Rosuvastatin Calcium (Crestor -) 10 mg PO HS [facility] Last Admin: 02/16/18 22:49 Dose: 10 mg - Objective Vital Signs: Vital Signs Temperature 97.3 F L 02/17/18 06:45 Pulse Rate 82 02/17/18 10:46 Respiratory Rate 20 02/17/18 09:00 Blood Pressure 103/70 02/17/18 10:46 O2 Sat by Pulse Oximetry (%) 98 02/17/18 09:00 Constitutional: Yes: Mild Distress Eyes: Yes: WNL HENT: Yes: WNL Neck: Yes: Other Cardiovascular: Yes: WNL Respiratory: Yes: Diminished Gastrointestinal: Yes: WNL Genitourinary: Yes: WNL Musculoskeletal: Yes: WNL Extremities: Yes: WNL Edema: No Peripheral Pulses WNL: Yes Integumentary: Yes: WNL Wound/Incision: Yes: Clean/Dry Neurological: Yes: WNL ...Motor Strength: WNL Psychiatric: Yes: WNL Labs: CBC, BMP 02/15/18 05:30 02/15/18 05:30 INR, PTT INR 1.13 (0.83-1.09) H 02/14/18 05:27 Problem List - Problems (1) Aspiration pneumonia Code(s): J69.0 - PNEUMONITIS DUE TO INHALATION OF FOOD AND VOMIT Qualifiers: Aspiration pneumonia type: unspecified Laterality: right Lung location: unspecified part of lung Qualified Code(s): J69.0 - Pneumonitis due to inhalation of food and vomit (2) Syncope Code(s): R55 - SYNCOPE AND COLLAPSE Qualifiers: Syncope type: unspecified Qualified Code(s): R55 - Syncope and collapse (3) Aspiration into respiratory tract Code(s): T17.908A - UNSP FB IN RESP TRACT, PART UNSP CAUSING OTH INJURY, INIT Qualifiers: Encounter type: initial encounter Qualified Code(s): T17.908A - Unspecified foreign body in respiratory tract, part unspecified causing other injury, initial encounter (4) Benign prostatic hypertrophy Code(s): N40.0 - BENIGN PROSTATIC HYPERPLASIA WITHOUT LOWER URINRY TRACT SYMP (5) CAD (coronary artery disease) Code(s): I25.10 - ATHSCL HEART DISEASE OF [place] CORONARY ARTERY W/O ANG PCTRS Qualifiers: Coronary Disease-Associated Artery/Lesion type: [place] artery [place] vs. transplanted heart: [place] heart Associated angina: without angina Qualified Code(s): I25.10 - Atherosclerotic heart disease of [place] coronary artery without angina pectoris (6) Carotid stenosis Code(s): I65.29 - OCCLUSION AND STENOSIS OF UNSPECIFIED CAROTID ARTERY (7) Dizziness Code(s): R42 - DIZZINESS AND GIDDINESS (8) HTN (hypertension) Code(s): I10 - ESSENTIAL (PRIMARY) HYPERTENSION Qualifiers: Hypertension type: essential hypertension Qualified Code(s): I10 - Essential (primary) hypertension (9) History of throat cancer Code(s): Z85.819 - PRSNL HX OF MALIG NEOPLM OF UNSP SITE LIP,ORAL CAV,& PHARYNX (10) Hypothyroid Code(s): E03.9 - HYPOTHYROIDISM, UNSPECIFIED Qualifiers: Hypothyroidism type: unspecified Qualified Code(s): E03.9 - Hypothyroidism , unspecified Assessment/Plan IV ABX FOR UTI CHECKING LABS PT EVAL OOB TO CHAIR ORTHOSTATIC POSITIVE
[2018-02-17] MEDS: ROSUVASTATIN CA 10 MG TABLET (FP) PO SCH (21:36)
[2018-02-18] MEDS: GABAPENTIN 250 MG/5 ML ORAL SOLUTION, 470 ML BOTTLE GT SCH ×3 (06:51→21:32)
[2018-02-18] MEDS: LEVOTHYROXINE NA 125 MCG TABLET (FP) GT SCH (06:51)
[2018-02-18 07:29] LABS: HEMATOCRIT 35.3 % (35.4-49); HEMOGLOBIN 11.2 GM/dL (11.7-16.9); MCH 27.1 pg (25.7-33.7); MCHC 31.9 g/dl (32.0-35.9); MEAN CELL VOLUME 85.2 fl (80-96); MEAN PLT VOLUME 8.4 fl (7.5-11.1); PLATELET COUNT 210 K/MM3 (134-434); RBC 4.14 M/mm3 (4.00-5.60); RDW 15.2 % (11.9-15.9); WHITE BLOOD COUNT 4.5 K/mm3 (4.0-10.0)
[2018-02-18 08:01] LABS: ANION GAP 6 MMOL/L (8-16); BLOOD UREA NITROGEN 17 mg/dL (7-18); CHLORIDE 100 mmol/L (98-107); CO2 36 mmol/L (21-32); CREATININE 0.7 mg/dL (0.55-1.3); GLUCOSE,RANDOM 94 mg/dL (74-106); POTASSIUM 4.3 mmol/L (3.5-5.1); SODIUM 142 mmol/L (136-145)
--- NOTE | 2018-02-18 09:31 | PN ---
Progress Note, Physician History of Present Illness: Cough improved, denies recurrent near or true syncope, afebrile. - Current Medication List Current Medications: Active Medications Acetaminophen (Tylenol Oral Solution -) 650 mg GT Q6H PRN PRN Reason: PAIN OR FEVER Albuterol/Ipratropium (Duoneb -) 1 amp NEB Q4H PRN PRN Reason: SHORTNESS OF BREATH Amlodipine Besylate (Norvasc -) 5 mg GT DAILY [facility] Last Admin: 02/17/18 10:48 Dose: 5 mg Aspirin (Asa -) 81 mg PO DAILY [facility] Last Admin: 02/17/18 10:47 Dose: 81 mg Fluticasone Propionate (Flonase -) 2 spray NS DAILY PRN PRN Reason: NASAL CONGESTION Gabapentin (Neurontin Oral Liquid -) 100 mg GT TID [facility] Last Admin: 02/18/18 06:51 Dose: 100 mg Ceftriaxone Sodium 1 gm/ (Dextrose) 50 mls @ 100 mls/hr IVPB DAILY [facility]; Protocol Last Admin: 02/17/18 10:48 Dose: 100 mls/hr Levothyroxine Sodium (Synthroid -) 125 mcg GT DAILY@0700 [facility] Last Admin: 02/18/18 06:51 Dose: 125 mcg Midodrine (Proamatine -) 5 mg GT BID-MID PRN PRN Reason: MAP<65mm Hg OR SBP <90 Nystatin/Triamcinolone Acetonide (Mycolog Ii Cream -) 1 applic TP BID [facility] Last Admin: 02/17/18 21:36 Dose: 1 applic Rosuvastatin Calcium (Crestor -) 10 mg PO HS [facility] Last Admin: 02/17/18 21:36 Dose: 10 mg - Objective Vital Signs: Vital Signs Temperature 97.3 F L 02/18/18 06:00 Pulse Rate 70 02/18/18 06:00 Respiratory Rate 20 02/18/18 06:00 Blood Pressure 117/72 02/18/18 06:00 O2 Sat by Pulse Oximetry (%) 98 02/17/18 21:00 Constitutional: Yes: No Distress, Calm Neck: Yes: Supple Cardiovascular: Yes: Regular Rate and Rhythm Respiratory: Yes: Regular, CTA Bilaterally Gastrointestinal: Yes: Normal Bowel Sounds, Soft Edema: No Labs: CBC, BMP 02/18/18 05:30 02/18/18 05:30 INR, PTT INR 1.13 (0.83-1.09) H 02/14/18 05:27 Problem List - Problems (1) Aspiration pneumonia Code(s): J69.0 - PNEUMONITIS DUE TO INHALATION OF FOOD AND VOMIT Qualifiers: Aspiration pneumonia type: unspecified Laterality: right Lung location: unspecified part of lung Qualified Code(s): J69.0 - Pneumonitis due to inhalation of food and vomit (2) Syncope Code(s): R55 - SYNCOPE AND COLLAPSE Qualifiers: Syncope type: unspecified Qualified Code(s): R55 - Syncope and collapse (3) Autonomic postural hypotension Code(s): I95.1 - ORTHOSTATIC HYPOTENSION (4) CAD (coronary artery disease) Code(s): I25.10 - ATHSCL HEART DISEASE OF [place] CORONARY ARTERY W/O ANG PCTRS Qualifiers: Coronary Disease-Associated Artery/Lesion type: [place] artery [place] vs. transplanted heart: [place] heart Associated angina: without angina Qualified Code(s): I25.10 - Atherosclerotic heart disease of [place] coronary artery without angina pectoris (5) HLD (hyperlipidemia) Code(s): E78.5 - HYPERLIPIDEMIA, UNSPECIFIED Qualifiers: Hyperlipidemia type: pure hypercholesterolemia Qualified Code(s): E78.00 - Pure hypercholesterolemia, unspecified; E78.0 - Pure hypercholesterolemia (6) HTN (hypertension) Code(s): I10 - ESSENTIAL (PRIMARY) HYPERTENSION Qualifiers: Hypertension type: essential hypertension Qualified Code(s): I10 - Essential (primary) hypertension (7) Hypothyroid Code(s): E03.9 - HYPOTHYROIDISM, UNSPECIFIED Qualifiers: Hypothyroidism type: unspecified Qualified Code(s): E03.9 - Hypothyroidism , unspecified (8) Orthostatic hypotension Code(s): I95.1 - ORTHOSTATIC HYPOTENSION Assessment/Plan 1. Aspiration Pneumonia, recurrent 2. Recurrent syncope related to postural hypotension referable to profound dysautonomia post head and neck radiation therapy 3. HTN, labile blood pressure 4. CAD non-obstructive CAD, angina pectoris 5. Diastolic LV dysfuntion with clinical class 0 NYHA classification LV failure 6. Hyperlipidemia 7. Hypothyroidism 8. 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 Benign prostatic hypertrophy PLAN: 1. Continue Norvasc 5 qd at the above noted dosage with caution related to the above noted profound dysautonomia 2. Continue Midodrine 5 bid at the above noted dosage as needed 3. Continue ASA 81 qd 4. Continue Crestor 10 qhs 5. Complete antibiotic as per the primary team 6. No additional intervention is indicated from the cardiovascular point of view , additional evaluation and F/U as outpatient referral to [place] [facility] [place] [facility] [place]
--- NOTE | 2018-02-18 10:16 | PN ---
Progress Note, Physician Chief Complaint: AWAKE AND ALERT DENIES ANY DISCOMFORT - Current Medication List Current Medications: Active Medications Acetaminophen (Tylenol Oral Solution -) 650 mg GT Q6H PRN PRN Reason: PAIN OR FEVER Albuterol/Ipratropium (Duoneb -) 1 amp NEB Q4H PRN PRN Reason: SHORTNESS OF BREATH Amlodipine Besylate (Norvasc -) 5 mg GT DAILY [facility] Last Admin: 02/17/18 10:48 Dose: 5 mg Aspirin (Asa -) 81 mg PO DAILY [facility] Last Admin: 02/17/18 10:47 Dose: 81 mg Fluticasone Propionate (Flonase -) 2 spray NS DAILY PRN PRN Reason: NASAL CONGESTION Gabapentin (Neurontin Oral Liquid -) 100 mg GT TID [facility] Last Admin: 02/18/18 06:51 Dose: 100 mg Ceftriaxone Sodium 1 gm/ (Dextrose) 50 mls @ 100 mls/hr IVPB DAILY [facility]; Protocol Last Admin: 02/17/18 10:48 Dose: 100 mls/hr Levothyroxine Sodium (Synthroid -) 125 mcg GT DAILY@0700 [facility] Last Admin: 02/18/18 06:51 Dose: 125 mcg Midodrine (Proamatine -) 5 mg GT BID-MID PRN PRN Reason: MAP<65mm Hg OR SBP <90 Nystatin/Triamcinolone Acetonide (Mycolog Ii Cream -) 1 applic TP BID [facility] Last Admin: 02/17/18 21:36 Dose: 1 applic Rosuvastatin Calcium (Crestor -) 10 mg PO HS [facility] Last Admin: 02/17/18 21:36 Dose: 10 mg - Objective Vital Signs: Vital Signs Temperature 97.3 F L 02/18/18 06:00 Pulse Rate 70 02/18/18 06:00 Respiratory Rate 20 02/18/18 06:00 Blood Pressure 117/72 02/18/18 06:00 O2 Sat by Pulse Oximetry (%) 98 02/17/18 21:00 Constitutional: Yes: Mild Distress Eyes: Yes: WNL HENT: Yes: WNL Cardiovascular: Yes: Regular Rate and Rhythm Respiratory: Yes: WNL, Other (GTUBE) Gastrointestinal: Yes: WNL Musculoskeletal: Yes: WNL Extremities: Yes: WNL Labs: CBC, BMP 02/18/18 05:30 02/18/18 05:30 INR, PTT INR 1.13 (0.83-1.09) H 02/14/18 05:27 Problem List - Problems (1) Aspiration pneumonia Code(s): J69.0 - PNEUMONITIS DUE TO INHALATION OF FOOD AND VOMIT Qualifiers: Aspiration pneumonia type: unspecified Laterality: right Lung location: unspecified part of lung Qualified Code(s): J69.0 - Pneumonitis due to inhalation of food and vomit (2) Syncope Code(s): R55 - SYNCOPE AND COLLAPSE Qualifiers: Syncope type: unspecified Qualified Code(s): R55 - Syncope and collapse (3) Aspiration into respiratory tract Code(s): T17.908A - UNSP FB IN RESP TRACT, PART UNSP CAUSING OTH INJURY, INIT Qualifiers: Encounter type: initial encounter Qualified Code(s): T17.908A - Unspecified foreign body in respiratory tract, part unspecified causing other injury, initial encounter (4) Benign prostatic hypertrophy Code(s): N40.0 - BENIGN PROSTATIC HYPERPLASIA WITHOUT LOWER URINRY TRACT SYMP (5) CAD (coronary artery disease) Code(s): I25.10 - ATHSCL HEART DISEASE OF [place] CORONARY ARTERY W/O ANG PCTRS Qualifiers: Coronary Disease-Associated Artery/Lesion type: [place] artery [place] vs. transplanted heart: [place] heart Associated angina: without angina Qualified Code(s): I25.10 - Atherosclerotic heart disease of [place] coronary artery without angina pectoris (6) Carotid stenosis Code(s): I65.29 - OCCLUSION AND STENOSIS OF UNSPECIFIED CAROTID ARTERY (7) Dizziness Code(s): R42 - DIZZINESS AND GIDDINESS (8) HTN (hypertension) Code(s): I10 - ESSENTIAL (PRIMARY) HYPERTENSION Qualifiers: Hypertension type: essential hypertension Qualified Code(s): I10 - Essential (primary) hypertension (9) History of throat cancer Code(s): Z85.819 - PRSNL HX OF MALIG NEOPLM OF UNSP SITE LIP,ORAL CAV,& PHARYNX (10) Hypothyroid Code(s): E03.9 - HYPOTHYROIDISM, UNSPECIFIED Qualifiers: Hypothyroidism type: unspecified Qualified Code(s): E03.9 - Hypothyroidism , unspecified Assessment/Plan IV ABX FOR UTI CHECKING LABS PT EVAL OOB TO CHAIR ORTHOSTATIC POSITIVE DC TELE TRANSFER TO MED SURG
[2018-02-18] MEDS ORDERED: cefTRIAXone SODIUM 1 GM VIAL ONE (10:33)
[2018-02-18] MEDS ORDERED: DEXTROSE 5%-WATER - 50 ML IVPB ONE (10:34)
[2018-02-18] MEDS: amLODIPine BESYLATE 5 MG TABLET (FP) GT SCH (10:35)
[2018-02-18] MEDS: ASPIRIN 81 MG CHEWABLE TABLETS PO SCH (10:36)
[2018-02-18] MEDS: CEFTRIAXONE 1 GM in DEXTROSE 5%-WATER - 50 ML IVPB SCH (10:36)
[2018-02-18] MEDS: NYSTATIN/TRIAMCINOLONE TOPICAL CREAM 15 GM TUBE TP SCH ×2 (10:36→21:38)
--- NOTE | 2018-02-18 11:56 | PN ---
Progress Note (short form) - Note Progress Note: PULMONARY CONSULTATION DICTATED 02/18/18 IMP RECURRENT ASPIRATION PNEUMONIA SYNCOPE H/O PHARYNGEAL CA S/P RT AUTONOMIC DYSFUNCTION ORTHOSTATIC HYPOTENSION LABILE HTN S/P GT BPH DM PLAN ABX PER ID O2 ASPIRATION PRECAUTIONS F/U CHEST X-RAY MONITOR BPS DR UMANA Problem List - Problems (1) Aspiration pneumonia Code(s): J69.0 - PNEUMONITIS DUE TO INHALATION OF FOOD AND VOMIT Qualifiers: Aspiration pneumonia type: unspecified Laterality: right Lung location: unspecified part of lung Qualified Code(s): J69.0 - Pneumonitis due to inhalation of food and vomit (2) Syncope Code(s): R55 - SYNCOPE AND COLLAPSE Qualifiers: Syncope type: unspecified Qualified Code(s): R55 - Syncope and collapse (3) Aspiration into respiratory tract Code(s): T17.908A - UNSP FB IN RESP TRACT, PART UNSP CAUSING OTH INJURY, INIT Qualifiers: Encounter type: initial encounter Qualified Code(s): T17.908A - Unspecified foreign body in respiratory tract, part unspecified causing other injury, initial encounter (4) Autonomic postural hypotension Code(s): I95.1 - ORTHOSTATIC HYPOTENSION (5) Benign prostatic hypertrophy Code(s): N40.0 - BENIGN PROSTATIC HYPERPLASIA WITHOUT LOWER URINRY TRACT SYMP (6) CAD (coronary artery disease) Code(s): I25.10 - ATHSCL HEART DISEASE OF [place] CORONARY ARTERY W/O ANG PCTRS Qualifiers: Coronary Disease-Associated Artery/Lesion type: [place] artery [place] vs. transplanted heart: [place] heart Associated angina: without angina Qualified Code(s): I25.10 - Atherosclerotic heart disease of [place] coronary artery without angina pectoris (7) HLD (hyperlipidemia) Code(s): E78.5 - HYPERLIPIDEMIA, UNSPECIFIED Qualifiers: Hyperlipidemia type: pure hypercholesterolemia Qualified Code(s): E78.00 - Pure hypercholesterolemia, unspecified; E78.0 - Pure hypercholesterolemia (8) Labile hypertension Code(s): I10 - ESSENTIAL (PRIMARY) HYPERTENSION (9) Orthostatic hypotension Code(s): I95.1 - ORTHOSTATIC HYPOTENSION
--- NOTE | 2018-02-18 12:42 | CONS ---
DATE OF CONSULTATION: 02/18/2018 REFERRING PHYSICIAN: Fern Murillo MD HISTORY OF PRESENT ILLNESS: The patient is a 72-year-old white male known to me from previous hospitalization as well as office followup with a past medical history of pharyngeal cancer, status post radiation therapy complicated by autonomic instability with labile blood pressures with chronic dysphagia, history of recurrent aspiration pneumonia, status post G-tube, benign prostatic hyperplasia, hyperlipidemia, and orthostatic hypotension. He was admitted to [facility] on February 14, 2018 status post syncopal episode, cough, and fevers. The patient states that he has been having syncopal episodes on a daily basis as he gets up and blacks out. He denied any chest pain, nausea or vomiting. He has also had a cough for a couple of days prior to admission with a fever for 2 days. He presented to the emergency room above. On admission he was felt to have likely aspiration pneumonia. He was placed on antibiotic therapy. He was admitted to the telemetry unit for further workup. He was evaluated by Infectious Disease consult by Dr. Quintero and placed on broad spectrum antibiotics. He was also evaluated by Dr. Guardado with a cardiology consultation due to recurrent syncope who felt that the patient has postural hypotension secondary to profound dysautonomia status post head and neck radiation therapy. The patient is a nonsmoker. There is no history of occupational exposure to chemical fumes. PAST MEDICAL HISTORY: Includes recurrent aspiration pneumonia, nonobstructive coronary artery disease, diastolic heart failure, hypothyroidism, hypercholesterolemia, labile hypertension as well as orthostatic hypotension, pharyngeal cancer, status post radiation therapy, profound autonomic dysfunction with chronic syncopal episodes, chronic aspiration pneumonia and dysphagia status post G-tube insertion. REVIEW OF SYSTEMS: No orthopnea, no PND. Positive for occasional mild shortness of breath and positive cough. No chest pain, no palpitations. No headaches or visual disturbances. Positive syncopal episodes. CURRENT MEDICATIONS: Include ____, Tylenol, ceftriaxone, Neurontin, ____, DuoNeb, Flonase, Norvasc, Crestor, aspirin, and Synthroid. PHYSICAL EXAMINATION: General: The patient is a well-developed, well-nourished male currently awake and alert in no acute distress. Vital Signs: He is afebrile. Blood pressure is right side standing 84/54, right side supine 106/45, respiratory rate 20, and oxygen saturation 98% on room air. HEENT: Normocephalic, atraumatic. Neck: Supple. Heart: Regular S1, S2. Chest: A few crackles at the bases. Abdomen: Soft, bowel sounds positive. Extremities: No cyanosis or edema. LABORATORIES: WBC 4.5, hemoglobin 11.2, hematocrit 35.3, platelet count of 210,000, INR is 1.13, BUN 17, creatinine 0.7. Chest x-ray: No atelectatic changes at the bases. IMPRESSION: 1. Likely recurrent aspiration pneumonia. 2. Syncopal secondary to serial autonomic dysfunction. 3. Severe orthostatic hypotension. 4. Labile hypertension. 5. History of pharyngeal cancer, status post radiation therapy and status post G-tube insertion. 6. Hypothyroidism. 7. Diabetes. PLAN: Antibiotics as per Infectious Disease, supplemental oxygen, aspiration precautions, further workup as per Cardiology, and monitor blood pressures. SOWMYA UMANA M.D. [id number]
[2018-02-18] MEDS ORDERED: ALBUTEROL SO4 2.5/IPRATROPIUM 0.5 INH SOL 3 ML VIAL.NEB. NEB PRN (14:14)
[2018-02-18] MEDS ORDERED: FLUTICASONE PROP 0.05% 16 GM NASAL SPRAY NS PRN (14:14)
[2018-02-18] MEDS ORDERED: MIDODRINE HCL 5 MG TABLET GT PRN (14:14)
[2018-02-18] MEDS ORDERED: ACETAMINOPHEN 650 MG/20.3 ML ORAL SOLUTION (CUPS) GT PRN (14:14)
[2018-02-18] MEDS ORDERED: PT OWN MED DRAWER 7, Y5N ONE ×3 (14:31→21:32)
[2018-02-18] MEDS: ROSUVASTATIN CA 10 MG TABLET (FP) PO SCH (21:32)
[2018-02-19] MEDS: GABAPENTIN 250 MG/5 ML ORAL SOLUTION, 470 ML BOTTLE GT SCH ×3 (06:06→21:08)
[2018-02-19] MEDS: LEVOTHYROXINE NA 125 MCG TABLET (FP) GT SCH (06:06)
[2018-02-19] MEDS ORDERED: DEXTROSE 5%-WATER - 50 ML IVPB ONE (09:58)
[2018-02-19] MEDS ORDERED: cefTRIAXone SODIUM 1 GM VIAL ONE (09:58)
[2018-02-19] MEDS: ASPIRIN 81 MG CHEWABLE TABLETS PO SCH (10:20)
[2018-02-19] MEDS: amLODIPine BESYLATE 5 MG TABLET (FP) GT SCH (10:20)
[2018-02-19] MEDS: CEFTRIAXONE 1 GM in DEXTROSE 5%-WATER - 50 ML IVPB SCH (10:20)
[2018-02-19] MEDS: NYSTATIN/TRIAMCINOLONE TOPICAL CREAM 15 GM TUBE TP SCH ×2 (10:21→21:08)
--- NOTE | 2018-02-19 10:42 | PN ---
Progress Note, Physician History of Present Illness: Cough improved, denies recurrent near or true syncope, afebrile. - Current Medication List Current Medications: Active Medications Acetaminophen (Tylenol Oral Solution -) 650 mg GT Q6H PRN PRN Reason: PAIN OR FEVER Albuterol/Ipratropium (Duoneb -) 1 amp NEB Q4H PRN PRN Reason: SHORTNESS OF BREATH Amlodipine Besylate (Norvasc -) 5 mg GT DAILY [facility] Aspirin (Asa -) 81 mg PO DAILY [facility] Fluticasone Propionate (Flonase -) 2 spray NS DAILY PRN PRN Reason: NASAL CONGESTION Gabapentin (Neurontin Oral Liquid -) 100 mg GT TID [facility] Last Admin: 02/19/18 06:06 Dose: 100 mg Ceftriaxone Sodium 1 gm/ (Dextrose) 50 mls @ 100 mls/hr IVPB DAILY [facility]; Protocol Levothyroxine Sodium (Synthroid -) 125 mcg GT DAILY@0700 [facility] Last Admin: 02/19/18 06:06 Dose: 125 mcg Midodrine (Proamatine -) 5 mg GT BID-MID PRN PRN Reason: MAP<65mm Hg OR SBP <90 Nystatin/Triamcinolone Acetonide (Mycolog Ii Cream -) 1 applic TP BID [facility] Last Admin: 02/18/18 21:38 Dose: 1 applic Rosuvastatin Calcium (Crestor -) 10 mg PO HS [facility] Last Admin: 02/18/18 21:32 Dose: 10 mg - Objective Vital Signs: Vital Signs Temperature 98.1 F 02/19/18 06:10 Pulse Rate 82 02/19/18 06:10 Respiratory Rate 20 02/19/18 06:10 Blood Pressure 113/63 02/19/18 06:10 O2 Sat by Pulse Oximetry (%) 98 02/18/18 21:00 Constitutional: Yes: No Distress, Calm, Thin Neck: Yes: Supple Cardiovascular: Yes: Regular Rate and Rhythm Respiratory: Yes: Regular, CTA Bilaterally Gastrointestinal: Yes: Normal Bowel Sounds, Soft Edema: No Labs: CBC, BMP 02/18/18 05:30 02/18/18 05:30 INR, PTT INR 1.13 (0.83-1.09) H 02/14/18 05:27 Problem List - Problems (1) Aspiration pneumonia Code(s): J69.0 - PNEUMONITIS DUE TO INHALATION OF FOOD AND VOMIT Qualifiers: Aspiration pneumonia type: unspecified Laterality: right Lung location: unspecified part of lung Qualified Code(s): J69.0 - Pneumonitis due to inhalation of food and vomit (2) Syncope Code(s): R55 - SYNCOPE AND COLLAPSE Qualifiers: Syncope type: unspecified Qualified Code(s): R55 - Syncope and collapse (3) Autonomic postural hypotension Code(s): I95.1 - ORTHOSTATIC HYPOTENSION (4) CAD (coronary artery disease) Code(s): I25.10 - ATHSCL HEART DISEASE OF [place] CORONARY ARTERY W/O ANG PCTRS Qualifiers: Coronary Disease-Associated Artery/Lesion type: [place] artery [place] vs. transplanted heart: [place] heart Associated angina: without angina Qualified Code(s): I25.10 - Atherosclerotic heart disease of [place] coronary artery without angina pectoris (5) HLD (hyperlipidemia) Code(s): E78.5 - HYPERLIPIDEMIA, UNSPECIFIED Qualifiers: Hyperlipidemia type: pure hypercholesterolemia Qualified Code(s): E78.00 - Pure hypercholesterolemia, unspecified; E78.0 - Pure hypercholesterolemia (6) HTN (hypertension) Code(s): I10 - ESSENTIAL (PRIMARY) HYPERTENSION Qualifiers: Hypertension type: essential hypertension Qualified Code(s): I10 - Essential (primary) hypertension (7) Hypothyroid Code(s): E03.9 - HYPOTHYROIDISM, UNSPECIFIED Qualifiers: Hypothyroidism type: unspecified Qualified Code(s): E03.9 - Hypothyroidism , unspecified (8) Orthostatic hypotension Code(s): I95.1 - ORTHOSTATIC HYPOTENSION Assessment/Plan 1. Aspiration Pneumonia, recurrent s/p G-tube 2. Recurrent syncope related to postural hypotension referable to profound dysautonomia post head and neck radiation therapy 3. HTN, labile blood pressure 4. CAD non-obstructive CAD, angina pectoris 5. Diastolic LV dysfuntion with clinical class 0 NYHA classification LV failure 6. Hyperlipidemia 7. Hypothyroidism 8. 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 Benign prostatic hypertrophy PLAN: 1. Continue Norvasc 5 qd at the above noted dosage with caution related to the above noted profound dysautonomia 2. Continue Midodrine 5 bid at the above noted dosage as needed 3. Continue ASA 81 qd 4. Continue Crestor 10 qhs 5. Complete antibiotic as per the primary team 6. No additional intervention is indicated from the cardiovascular point of view , additional evaluation and F/U as outpatient referral to the [facility] at [facility] [place]
--- NOTE | 2018-02-19 11:01 | PN ---
Progress Note, Physician Chief Complaint: Aspiration pneumonia History of Present Illness: NAD Seen by Pulmonary and ID Received 5 days of ceftriaxone afebrile no leukocytosis - Current Medication List Current Medications: Active Medications Acetaminophen (Tylenol Oral Solution -) 650 mg GT Q6H PRN PRN Reason: PAIN OR FEVER Albuterol/Ipratropium (Duoneb -) 1 amp NEB Q4H PRN PRN Reason: SHORTNESS OF BREATH Amlodipine Besylate (Norvasc -) 5 mg GT DAILY [facility] Aspirin (Asa -) 81 mg PO DAILY [facility] Fluticasone Propionate (Flonase -) 2 spray NS DAILY PRN PRN Reason: NASAL CONGESTION Gabapentin (Neurontin Oral Liquid -) 100 mg GT TID [facility] Last Admin: 02/19/18 06:06 Dose: 100 mg Ceftriaxone Sodium 1 gm/ (Dextrose) 50 mls @ 100 mls/hr IVPB DAILY [facility]; Protocol Levothyroxine Sodium (Synthroid -) 125 mcg GT DAILY@0700 [facility] Last Admin: 02/19/18 06:06 Dose: 125 mcg Midodrine (Proamatine -) 5 mg GT BID-MID PRN PRN Reason: MAP<65mm Hg OR SBP <90 Nystatin/Triamcinolone Acetonide (Mycolog Ii Cream -) 1 applic TP BID [facility] Last Admin: 02/18/18 21:38 Dose: 1 applic Rosuvastatin Calcium (Crestor -) 10 mg PO HS [facility] Last Admin: 02/18/18 21:32 Dose: 10 mg - Objective Vital Signs: Vital Signs Temperature 98.1 F 02/19/18 06:10 Pulse Rate 82 02/19/18 06:10 Respiratory Rate 20 02/19/18 06:10 Blood Pressure 113/63 02/19/18 06:10 O2 Sat by Pulse Oximetry (%) 98 02/18/18 21:00 Constitutional: Yes: Well Nourished, No Distress, Calm Cardiovascular: Yes: Regular Rate and Rhythm Respiratory: Yes: Regular Gastrointestinal: Yes: Normal Bowel Sounds, Soft Musculoskeletal: Yes: WNL Extremities: Yes: WNL Edema: No Peripheral Pulses WNL: Yes Neurological: Yes: Alert, Oriented Psychiatric: Yes: Alert, Oriented Labs: CBC, BMP 02/18/18 05:30 02/18/18 05:30 INR, PTT INR 1.13 (0.83-1.09) H 02/14/18 05:27 Problem List - Problems (1) Aspiration pneumonia Assessment/Plan: -CXR unrevealing of aspiration pneumonia -BC negative -UA negative Code(s): J69.0 - PNEUMONITIS DUE TO INHALATION OF FOOD AND VOMIT Qualifiers: Aspiration pneumonia type: unspecified Laterality: right Lung location: unspecified part of lung Qualified Code(s): J69.0 - Pneumonitis due to inhalation of food and vomit (2) Dysautonomia orthostatic hypotension syndrome Assessment/Plan: 2/2 to head and neck radiation s/p laryngeal ca -Seen by Cardiology -balances between midodrine and amlodipine Code(s): G90.3 - MULTI-SYSTEM DEGENERATION OF THE AUTONOMIC NERVOUS SYSTEM Assessment/Plan see problem list self ambulatory
--- NOTE | 2018-02-19 14:41 | PN ---
Progress Note (short form) - Note Progress Note: PULMONARY Denies shortness of breath. +cough with green sputum. Had episode of near syncope about 20 minutes ago, now resolved. Vital Signs Period Temp Pulse Resp BP Sys/Leblanc Pulse Ox Last 24 Hr 97.6 F-98.2 F 76-84 20-20 71-187/37-96 98-98 Gen: NAD at rest Heart: RRR Lung: decreased breath sounds at the bases Abd: soft, nontender Ext: no edema CBC, BMP 02/18/18 05:30 02/18/18 05:30 Active Medications Acetaminophen (Tylenol Oral Solution -) 650 mg GT Q6H PRN PRN Reason: PAIN OR FEVER Albuterol/Ipratropium (Duoneb -) 1 amp NEB Q4H PRN PRN Reason: SHORTNESS OF BREATH Amlodipine Besylate (Norvasc -) 5 mg GT DAILY [facility] Last Admin: 02/19/18 10:20 Dose: 5 mg Aspirin (Asa -) 81 mg PO DAILY [facility] Last Admin: 02/19/18 10:20 Dose: 81 mg Fluticasone Propionate (Flonase -) 2 spray NS DAILY PRN PRN Reason: NASAL CONGESTION Gabapentin (Neurontin Oral Liquid -) 100 mg GT TID [facility] Last Admin: 02/19/18 06:06 Dose: 100 mg Ceftriaxone Sodium 1 gm/ (Dextrose) 50 mls @ 100 mls/hr IVPB DAILY [facility]; Protocol Last Admin: 02/19/18 10:20 Dose: 100 mls/hr Levothyroxine Sodium (Synthroid -) 125 mcg GT DAILY@0700 [facility] Last Admin: 02/19/18 06:06 Dose: 125 mcg Midodrine (Proamatine -) 5 mg GT BID-MID PRN PRN Reason: MAP<65mm Hg OR SBP <90 Nystatin/Triamcinolone Acetonide (Mycolog Ii Cream -) 1 applic TP BID [facility] Last Admin: 02/19/18 10:21 Dose: 1 applic Rosuvastatin Calcium (Crestor -) 10 mg PO HS [facility] Last Admin: 02/18/18 21:32 Dose: 10 mg A/P Pneumonia likely Aspiration Syncope Orthostatic Hypotension HTN CAD LV Diastolic Dysfunction Hyperlipidemia Hypothyroidism h/o Laryngeal Ca BPH - continue antibiotics - continue midodrine - fall precautions - O2 as needed - aspiration precautions - DVT prophylaxis
[2018-02-19] MEDS ORDERED: PT OWN MED DRAWER 7, Y5N ONE ×2 (15:11→21:04)
--- NOTE | 2018-02-19 17:51 | DS ---
Physical Examination Vital Signs: Vital Signs Temperature 97.9 F 02/19/18 14:19 Pulse Rate 83 02/19/18 14:19 Respiratory Rate 20 02/19/18 09:00 Blood Pressure 146/83 02/19/18 14:19 O2 Sat by Pulse Oximetry (%) 98 02/19/18 09:00 Findings/Remarks: 72M with a PMH of pharyngeal CA status post radiation therapy complicated by autonomic stability with labile blood pressures, occasionally symptomatic with lightheadedness, also complicated by chronic dysphasia who presents to the ER after having a syncopal episode, cough, and fevers. The patient states that he' s had syncopal episodes almost daily. However, he's had a cough for "a while" with fevers x 2 days. He denies CP, SOB, nausea, vomiting, but admits to prior aspiration PNA. Constitutional: Yes: Well Nourished, No Distress, Calm Cardiovascular: Yes: Regular Rate and Rhythm Respiratory: Yes: Regular Gastrointestinal: Yes: Normal Bowel Sounds, Soft Musculoskeletal: Yes: WNL Extremities: Yes: WNL Edema: No Peripheral Pulses WNL: Yes Neurological: Yes: Alert, Oriented Psychiatric: Yes: Alert, Oriented Labs: CBC, BMP 02/18/18 05:30 02/18/18 05:30 Discharge Summary Reason For Visit: SYNCOPE/PNEUMONIA Current Active Problems Aspiration pneumonia (Acute) Dysautonomia orthostatic hypotension syndrome (Acute) Syncope (Acute) Hospital Course: Laboratory Last Values WBC 4.5 K/mm3 (4.0-10.0) 02/18/18 05:30 RBC 4.14 M/mm3 (4.00-5.60) 02/18/18 05:30 Hgb 11.2 GM/dL (11.7-16.9) L 02/18/18 05:30 Hct 35.3 % (35.4-49) L 02/18/18 05:30 MCV 85.2 fl (80-96) 02/18/18 05:30 MCH 27.1 pg (25.7-33.7) 02/18/18 05:30 MCHC 31.9 g/dl (32.0-35.9) L 02/18/18 05:30 RDW 15.2 % (11.9-15.9) 02/18/18 05:30 Plt Count 210 K/MM3 (134-434) 02/18/18 05:30 MPV 8.4 fl (7.5-11.1) 02/18/18 05:30 Absolute Neuts (auto) 3.3 K/mm3 (1.5-8.0) 02/15/18 05:30 Neutrophils % 68.9 % (42.8-82.8) D 02/15/18 05:30 Lymphocytes % 16.2 % (8-40) D 02/15/18 05:30 Monocytes % 10.4 % (3.8-10.2) H 02/15/18 05:30 Eosinophils % 4.2 % (0-4.5) D 02/15/18 05:30 Basophils % 0.3 % (0-2.0) 02/15/18 05:30 Nucleated RBC % 0 % (0-0) 02/15/18 05:30 PT with INR 13.30 SEC (9.7-13.0) H 02/14/18 05:27 INR 1.13 (0.83-1.09) H 02/14/18 05:27 Sodium 142 mmol/L (136-145) 02/18/18 05:30 Potassium 4.3 mmol/L (3.5-5.1) 02/18/18 05:30 Chloride 100 mmol/L (98-107) 02/18/18 05:30 Carbon Dioxide 36 mmol/L (21-32) H 02/18/18 05:30 Anion Gap 6 MMOL/L (8-16) L 02/18/18 05:30 BUN 17 mg/dL (7-18) 02/18/18 05:30 Creatinine 0.7 mg/dL (0.55-1.3) 02/18/18 05:30 Creat Clearance w eGFR > 60 (>60) 02/18/18 05:30 Random Glucose 94 mg/dL (74-106) 02/18/18 05:30 Lactic Acid 1.3 mmol/L (0.4-2.0) 02/14/18 05:27 Calcium 9.0 mg/dL (8.5-10.1) 02/18/18 05:30 Magnesium 2.0 mg/dL (1.8-2.4) 02/14/18 05:27 Ferritin 235.4 ng/ml (8-388) 02/14/18 05:27 Total Bilirubin 0.5 mg/dL (0.2-1) 02/15/18 05:30 AST 14 U/L (15-37) L 02/15/18 05:30 ALT 19 U/L (13-61) 02/15/18 05:30 Alkaline Phosphatase 65 U/L (45-117) 02/15/18 05:30 Creatine Kinase 24 IU/L (26-308) L 02/14/18 05:27 Troponin I 0.03 ng/ml (0.00-0.05) 02/14/18 05:27 B-Natriuretic Peptide 287.0 pg/ml (5-125) H 02/14/18 05:27 Total Protein 6.5 g/dl (6.4-8.2) 02/15/18 05:30 Albumin 3.1 g/dl (3.4-5.0) L 02/15/18 05:30 Vitamin B12 898 pg/ml (193-986) 02/14/18 05:27 Urine Color Yellow 02/14/18 09:00 Urine Appearance Cloudy 02/14/18 09:00 Urine pH 7.0 (5.0-8.0) D 02/14/18 09:00 Ur Specific [place] 1.014 (1.010-1.035) 02/14/18 09:00 Urine Protein Negative (NEGATIVE) 02/14/18 09:00 Urine Glucose (UA) Negative (NEGATIVE) 02/14/18 09:00 Urine Ketones Negative (NEGATIVE) 02/14/18 09:00 Urine Blood Negative (NEGATIVE) 02/14/18 09:00 Urine Nitrite Negative (NEGATIVE) 02/14/18 09:00 Urine Bilirubin Negative (<2.0 mg/dL) 02/14/18 09:00 Urine Urobilinogen 2.0 mg/dL (0.2-1.0) 02/14/18 09:00 Ur Leukocyte Esterase Negative (NEGATIVE) 02/14/18 09:00 Microbiology 02/14/18 05:27 Blood - Peripheral Venous Blood Culture - Final NO GROWTH AFTER 5 DAYS INCUBATION 02/14/18 05:27 Blood - Peripheral Venous Blood Culture - Final NO GROWTH AFTER 5 DAYS INCUBATION Condition: Stable - Instructions Referrals: Fern Murillo MD [Primary Care Provider] - Disposition: HOME - Home Medications Comprehensive Discharge Medication List: Ambulatory Orders Aspirin [ASA -] 81 mg PO DAILY 10/20/15 Cholecalciferol (Vitamin D3) [Vitamin D3] 2,000 unit PO DAILY 10/20/15 Cyanocobalamin (Vitamin B-12) [Vitamin B-12] 1,000 mcg PO DAILY 10/20/15 Levothyroxine Sodium [Unithroid] 125 mcg PO DAILY 10/20/15 Rosuvastatin Calcium [Crestor] 10 mg PO HS 10/20/15 Acetaminophen [Tylenol .Regular Strength -] 650 mg PO Q6H PRN tablet 07/06/17 Midodrine HCl [Proamatine -] 5 mg PO BID-MID PRN #60 tablet 07/06/17 Albuterol 0.083% Nebulizer Malissa [Ventolin 0.083% Nebulizer Soln -] 1 amp NEB PRN PRN 01/16/18 Amlodipine Besylate [Norvasc -] 5 mg PO DAILY 01/16/18 Fluticasone Prop 0.05% Nasal [Flonase -] 2 spray NS DAILY PRN 01/16/18 Sodium Chloride 1,000 mg MC DAILY 01/16/18 Acetaminophen [Tylenol .Regular Strength -] 650 mg PO Q4H PRN tablet 01/21/18 Albuterol 2.5/Ipratropium 0.5 [Duoneb -] 1 amp NEB Q4H PRN amp 01/21/18 Aspirin [ASA -] 81 mg PO DAILY tab.chew 01/21/18 Gabapentin Liquid [Neurontin Oral Liquid -] 100 mg GT TID #120 ml 02/19/18 Nystatin/Triamcinolone Top Cr [Mycolog II -] 1 applic TP BID #45 g 02/19/18
[2018-02-19] MEDS: ROSUVASTATIN CA 10 MG TABLET (FP) PO SCH (21:08)
[2018-02-20] MEDS: LEVOTHYROXINE NA 125 MCG TABLET (FP) GT SCH (06:12)
[2018-02-20] MEDS: GABAPENTIN 250 MG/5 ML ORAL SOLUTION, 470 ML BOTTLE GT SCH ×2 (06:12→14:33)
--- NOTE | 2018-02-20 09:39 | PN ---
Progress Note, Physician History of Present Illness: Cough improved, denies recurrent near or true syncope, afebrile. - Current Medication List Current Medications: Active Medications Acetaminophen (Tylenol Oral Solution -) 650 mg GT Q6H PRN PRN Reason: PAIN OR FEVER Albuterol/Ipratropium (Duoneb -) 1 amp NEB Q4H PRN PRN Reason: SHORTNESS OF BREATH Amlodipine Besylate (Norvasc -) 5 mg GT DAILY [facility] Last Admin: 02/19/18 10:20 Dose: 5 mg Aspirin (Asa -) 81 mg PO DAILY [facility] Last Admin: 02/19/18 10:20 Dose: 81 mg Fluticasone Propionate (Flonase -) 2 spray NS DAILY PRN PRN Reason: NASAL CONGESTION Gabapentin (Neurontin Oral Liquid -) 100 mg GT TID [facility] Last Admin: 02/20/18 06:12 Dose: 100 mg Ceftriaxone Sodium 1 gm/ (Dextrose) 50 mls @ 100 mls/hr IVPB DAILY [facility]; Protocol Last Admin: 02/19/18 10:20 Dose: 100 mls/hr Levothyroxine Sodium (Synthroid -) 125 mcg GT DAILY@0700 [facility] Last Admin: 02/20/18 06:12 Dose: 125 mcg Midodrine (Proamatine -) 5 mg GT BID-MID PRN PRN Reason: MAP<65mm Hg OR SBP <90 Nystatin/Triamcinolone Acetonide (Mycolog Ii Cream -) 1 applic TP BID [facility] Last Admin: 02/19/18 21:08 Dose: 1 applic Rosuvastatin Calcium (Crestor -) 10 mg PO HS [facility] Last Admin: 02/19/18 21:08 Dose: 10 mg - Objective Vital Signs: Vital Signs Temperature 98.2 F 02/20/18 09:00 Pulse Rate 73 02/20/18 09:00 Respiratory Rate 18 02/20/18 09:00 Blood Pressure 103/59 L 02/20/18 09:00 O2 Sat by Pulse Oximetry (%) 98 02/19/18 21:00 Constitutional: Yes: No Distress, Calm Neck: Yes: Supple Cardiovascular: Yes: Regular Rate and Rhythm Respiratory: Yes: Regular, CTA Bilaterally, On Nasal O2 Gastrointestinal: Yes: Normal Bowel Sounds, Soft Edema: No Labs: CBC, BMP 02/18/18 05:30 02/18/18 05:30 INR, PTT INR 1.13 (0.83-1.09) H 02/14/18 05:27 Problem List - Problems (1) Aspiration pneumonia Code(s): J69.0 - PNEUMONITIS DUE TO INHALATION OF FOOD AND VOMIT Qualifiers: Aspiration pneumonia type: unspecified Laterality: right Lung location: unspecified part of lung Qualified Code(s): J69.0 - Pneumonitis due to inhalation of food and vomit (2) Syncope Code(s): R55 - SYNCOPE AND COLLAPSE Qualifiers: Syncope type: unspecified Qualified Code(s): R55 - Syncope and collapse (3) Autonomic postural hypotension Code(s): I95.1 - ORTHOSTATIC HYPOTENSION (4) CAD (coronary artery disease) Code(s): I25.10 - ATHSCL HEART DISEASE OF [place] CORONARY ARTERY W/O ANG PCTRS Qualifiers: Coronary Disease-Associated Artery/Lesion type: [place] artery [place] vs. transplanted heart: [place] heart Associated angina: without angina Qualified Code(s): I25.10 - Atherosclerotic heart disease of [place] coronary artery without angina pectoris (5) HLD (hyperlipidemia) Code(s): E78.5 - HYPERLIPIDEMIA, UNSPECIFIED Qualifiers: Hyperlipidemia type: pure hypercholesterolemia Qualified Code(s): E78.00 - Pure hypercholesterolemia, unspecified; E78.0 - Pure hypercholesterolemia (6) HTN (hypertension) Code(s): I10 - ESSENTIAL (PRIMARY) HYPERTENSION Qualifiers: Hypertension type: essential hypertension Qualified Code(s): I10 - Essential (primary) hypertension (7) Hypothyroid Code(s): E03.9 - HYPOTHYROIDISM, UNSPECIFIED Qualifiers: Hypothyroidism type: unspecified Qualified Code(s): E03.9 - Hypothyroidism , unspecified (8) Orthostatic hypotension Code(s): I95.1 - ORTHOSTATIC HYPOTENSION Assessment/Plan 1. Aspiration Pneumonia, recurrent s/p G-tube 2. Recurrent syncope related to postural hypotension referable to profound dysautonomia post head and neck radiation therapy 3. HTN, labile blood pressure 4. CAD non-obstructive CAD, angina pectoris 5. Diastolic LV dysfuntion with clinical class 0 NYHA classification LV failure 6. Hyperlipidemia 7. Hypothyroidism 8. 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 Benign prostatic hypertrophy PLAN: 1. Continue Norvasc 5 qd at the above noted dosage with caution related to the above noted profound dysautonomia 2. Continue Midodrine 5 bid at the above noted dosage as needed 3. Continue ASA 81 qd 4. Continue Crestor 10 qhs 5. Complete antibiotic course as per the primary team, aspiration precautions 6. No additional intervention is indicated from the cardiovascular point of view , additional evaluation and F/U as outpatient referral to the [facility] at [facility]/Neurology
[2018-02-20] MEDS ORDERED: DEXTROSE 5%-WATER - 50 ML IVPB ONE (10:33)
[2018-02-20] MEDS ORDERED: cefTRIAXone SODIUM 1 GM VIAL ONE (10:33)
[2018-02-20] MEDS: ASPIRIN 81 MG CHEWABLE TABLETS PO SCH (10:40)
[2018-02-20] MEDS: amLODIPine BESYLATE 5 MG TABLET (FP) GT SCH (10:40)
[2018-02-20] MEDS: CEFTRIAXONE 1 GM in DEXTROSE 5%-WATER - 50 ML IVPB SCH (10:40)
[2018-02-20] MEDS: NYSTATIN/TRIAMCINOLONE TOPICAL CREAM 15 GM TUBE TP SCH (10:41)
--- NOTE | 2018-02-20 10:53 | PN ---
Progress Note, Physician Chief Complaint: Aspiration pneumonia History of Present Illness: NAD Seen by Pulmonary and ID Received 7 days of ceftriaxone afebrile no leukocytosis - Current Medication List Current Medications: Active Medications Acetaminophen (Tylenol Oral Solution -) 650 mg GT Q6H PRN PRN Reason: PAIN OR FEVER Albuterol/Ipratropium (Duoneb -) 1 amp NEB Q4H PRN PRN Reason: SHORTNESS OF BREATH Amlodipine Besylate (Norvasc -) 5 mg GT DAILY [facility] Last Admin: 02/20/18 10:40 Dose: Not Given Aspirin (Asa -) 81 mg PO DAILY [facility] Last Admin: 02/20/18 10:40 Dose: 81 mg Fluticasone Propionate (Flonase -) 2 spray NS DAILY PRN PRN Reason: NASAL CONGESTION Gabapentin (Neurontin Oral Liquid -) 100 mg GT TID [facility] Last Admin: 02/20/18 06:12 Dose: 100 mg Ceftriaxone Sodium 1 gm/ (Dextrose) 50 mls @ 100 mls/hr IVPB DAILY [facility]; Protocol Last Admin: 02/20/18 10:40 Dose: 100 mls/hr Levothyroxine Sodium (Synthroid -) 125 mcg GT DAILY@0700 [facility] Last Admin: 02/20/18 06:12 Dose: 125 mcg Midodrine (Proamatine -) 5 mg GT BID-MID PRN PRN Reason: MAP<65mm Hg OR SBP <90 Nystatin/Triamcinolone Acetonide (Mycolog Ii Cream -) 1 applic TP BID [facility] Last Admin: 02/20/18 10:41 Dose: 1 applic Rosuvastatin Calcium (Crestor -) 10 mg PO HS [facility] Last Admin: 02/19/18 21:08 Dose: 10 mg - Objective Vital Signs: Vital Signs Temperature 98.2 F 02/20/18 09:00 Pulse Rate 73 02/20/18 09:00 Respiratory Rate 18 02/20/18 09:00 Blood Pressure 103/59 L 02/20/18 09:00 O2 Sat by Pulse Oximetry (%) 98 02/19/18 21:00 Constitutional: Yes: Well Nourished, No Distress, Calm Cardiovascular: Yes: Regular Rate and Rhythm Respiratory: Yes: Regular Gastrointestinal: Yes: Normal Bowel Sounds, Soft, Other (PEG) Genitourinary: Yes: WNL Musculoskeletal: Yes: WNL Extremities: Yes: WNL Edema: No Peripheral Pulses WNL: Yes Neurological: Yes: Alert, Oriented Psychiatric: Yes: Alert, Oriented Labs: CBC, BMP 02/18/18 05:30 02/18/18 05:30 INR, PTT INR 1.13 (0.83-1.09) H 02/14/18 05:27 Problem List - Problems (1) Aspiration pneumonia Assessment/Plan: -CXR unrevealing of aspiration pneumonia -BC negative -UA negative Code(s): J69.0 - PNEUMONITIS DUE TO INHALATION OF FOOD AND VOMIT Qualifiers: Aspiration pneumonia type: unspecified Laterality: right Lung location: unspecified part of lung Qualified Code(s): J69.0 - Pneumonitis due to inhalation of food and vomit (2) Dysautonomia orthostatic hypotension syndrome Assessment/Plan: 2/2 to head and neck radiation s/p laryngeal ca -Seen by Cardiology -balances between midodrine and amlodipine Code(s): G90.3 - MULTI-SYSTEM DEGENERATION OF THE AUTONOMIC NERVOUS SYSTEM Assessment/Plan see problem list self ambulatory d/c home
--- NOTE | 2018-02-20 12:00 | PN ---
Progress Note, Physician History of Present Illness: Awake, alert Seated in bed No new complaints Afebrile WBC WNL - Current Medication List Current Medications: Active Medications Acetaminophen (Tylenol Oral Solution -) 650 mg GT Q6H PRN PRN Reason: PAIN OR FEVER Albuterol/Ipratropium (Duoneb -) 1 amp NEB Q4H PRN PRN Reason: SHORTNESS OF BREATH Amlodipine Besylate (Norvasc -) 5 mg GT DAILY [facility] Last Admin: 02/20/18 10:40 Dose: Not Given Aspirin (Asa -) 81 mg PO DAILY [facility] Last Admin: 02/20/18 10:40 Dose: 81 mg Fluticasone Propionate (Flonase -) 2 spray NS DAILY PRN PRN Reason: NASAL CONGESTION Gabapentin (Neurontin Oral Liquid -) 100 mg GT TID [facility] Last Admin: 02/20/18 06:12 Dose: 100 mg Ceftriaxone Sodium 1 gm/ (Dextrose) 50 mls @ 100 mls/hr IVPB DAILY [facility]; Protocol Last Admin: 02/20/18 10:40 Dose: 100 mls/hr Levothyroxine Sodium (Synthroid -) 125 mcg GT DAILY@0700 [facility] Last Admin: 02/20/18 06:12 Dose: 125 mcg Midodrine (Proamatine -) 5 mg GT BID-MID PRN PRN Reason: MAP<65mm Hg OR SBP <90 Nystatin/Triamcinolone Acetonide (Mycolog Ii Cream -) 1 applic TP BID [facility] Last Admin: 02/20/18 10:41 Dose: 1 applic Rosuvastatin Calcium (Crestor -) 10 mg PO HS [facility] Last Admin: 02/19/18 21:08 Dose: 10 mg - Objective Vital Signs: Vital Signs Temperature 98.2 F 02/20/18 09:00 Pulse Rate 73 02/20/18 09:00 Respiratory Rate 18 02/20/18 09:00 Blood Pressure 103/59 L 02/20/18 09:00 O2 Sat by Pulse Oximetry (%) 98 02/19/18 21:00 Constitutional: Yes: No Distress Eyes: Yes: Conjunctiva Clear Cardiovascular: Yes: Regular Rate and Rhythm, S1, S2 Respiratory: Yes: CTA Bilaterally Gastrointestinal: Yes: Normal Bowel Sounds, Soft. No: Tenderness Edema: No Labs: CBC, BMP 02/18/18 05:30 02/18/18 05:30 INR, PTT INR 1.13 (0.83-1.09) H 02/14/18 05:27 Assessment/Plan Probable recurrent aspiration pneumonia S/P Syncope Labile blood c/s/ autonomic dysfunction Laryngeal ca Substitute augmentin po bid x3d
[2018-02-20 13:56] VITALS: BP 125/75; PULSE 79; TEMP 97.7
== END 2018-02-20 16:37 | disposition home or self-care (01) | DRG 178 ==
LOC: JER 05:05 → JERBED 06:38 → J4W 22:46 → J6S 02-18 13:33
PROVIDERS: ADMIT Family Medicine; ATTEND Family Medicine
DX: J69.0 Pneumonitis due to inhalation of food and vomit (principal); G90.3 Multi-system degeneration of the autonomic nervous system; I25.110 Atherosclerotic heart disease of native coronary artery with unstable angina pectoris; R13.10 Dysphagia, unspecified; R55 Syncope and collapse; I95.1 Orthostatic hypotension; E03.9 Hypothyroidism, unspecified; D64.9 Anemia, unspecified; N40.0 Benign prostatic hyperplasia without lower urinary tract symptoms; K21.9 Gastro-esophageal reflux disease without esophagitis; E78.00 Pure hypercholesterolemia, unspecified; E11.9 Type 2 diabetes mellitus without complications; I10 Essential (primary) hypertension; I65.29 Occlusion and stenosis of unspecified carotid artery; Z85.819 Personal history of malignant neoplasm of unspecified site of lip, oral cavity, and pharynx; Z93.1 Gastrostomy status
CPT/HCPCS: 36415; 71045-TC-FY; 71046-TC-FY; 80048; 80053; 81003; 82550; 82607; 82728; 83540; 83550; 83605; 83735; 83880; 84484; 85025; 85027; 85610; 87040; 93005; 93010; 97116-GP; 97161-GP; 99285-25

== ENCOUNTER 2018-09-21 13:36 | Inpatient (IN) | payer OTHER, BC ==
[2018-09-21 13:45] VITALS: BMI 25.7
--- NOTE | 2018-09-21 13:45 | PDOC ---
Rapid Medical Evaluation Chief Complaint: Hemoptysis Time Seen by Provider: 09/21/18 13:41 Medical Evaluation: Allergies Allergy/AdvReac Type Severity Reaction Status Date / Time tamsulosin HCl [From Flomax] AdvReac Intermediate dizziness Verified 02/14/18 06 :07 09/21/18 13:41 I have performed a brief in-person evaluation of this patient. The patient presents with a chief complaint of: h/o aspirated PNA on supplementary oxygen sent in by PCP for evaluation of coughing up blood. Patient report has h/o intermittent hemoptysis but has been persistent now for 2 weeks now. report tactile fever yesterday. Pertinent physical exam findings: A&O x 3. lungs CTAB I have ordered the following: CXR, cbc, cmp, d-dimer The patient will proceed to the ED for further evaluation Discharge Disposition - Diagnosis Hemoptysis - Discharge Dispostion Condition at time of disposition: Stable - Referrals - Patient Instructions - Post Discharge Activity
--- NOTE | 2018-09-21 15:39 | PDOC ---
History of Present Illness - General Chief Complaint: Hemoptysis Stated Complaint: SPITTING BLOOD Time Seen by Provider: 09/21/18 13:41 History Source: Patient Exam Limitations: No Limitations - History of Present Illness Initial Comments: 09/21/18 15:18 73 yo M with a hx of HTN, COPD (2 liters home O2), HLD, autonomic dysfunction, hypothyroidism, anemia, DM, and pharyngeal cancer s/p radiation [phone] without surgical resection without metastatic disease presents to the emergency department with hemoptysis for the past 2 weeks. Per the patient, he had cases of hemoptysis that last for a day with less blood content throughout the past couple of years. His last surveillance of his cancer was 2011. He states he has had subjective fevers Past History - Past Medical History Allergies/Adverse Reactions: Allergies Allergy/AdvReac Type Severity Reaction Status Date / Time tamsulosin HCl [From Flomax] AdvReac Intermediate dizziness Verified 02/14/18 06 :07 Home Medications: Ambulatory Orders Aspirin [ASA -] 81 mg PO DAILY 10/20/15 Cholecalciferol (Vitamin D3) [Vitamin D3] 2,000 unit PO DAILY 10/20/15 Cyanocobalamin (Vitamin B-12) [Vitamin B-12] 1,000 mcg PO DAILY 10/20/15 Levothyroxine Sodium [Unithroid] 125 mcg PO DAILY 10/20/15 Rosuvastatin Calcium [Crestor] 10 mg PO HS 10/20/15 Acetaminophen [Tylenol .Regular Strength -] 650 mg PO Q6H PRN tablet 07/06/17 Midodrine HCl [Proamatine -] 5 mg PO BID-MID PRN #60 tablet 07/06/17 Albuterol 0.083% Nebulizer Malissa [Ventolin 0.083% Nebulizer Soln -] 1 amp NEB PRN PRN 01/16/18 Amlodipine Besylate [Norvasc -] 5 mg PO DAILY 01/16/18 Fluticasone Prop 0.05% Nasal [Flonase -] 2 spray NS DAILY PRN 01/16/18 Sodium Chloride 1,000 mg MC DAILY 01/16/18 Acetaminophen [Tylenol .Regular Strength -] 650 mg PO Q4H PRN tablet 01/21/18 Albuterol 2.5/Ipratropium 0.5 [Duoneb -] 1 amp NEB Q4H PRN amp 01/21/18 Aspirin [ASA -] 81 mg PO DAILY tab.chew 01/21/18 Gabapentin Liquid [Neurontin Oral Liquid -] 100 mg GT TID #120 ml 02/19/18 Nystatin/Triamcinolone Top Cr [Mycolog II -] 1 applic TP BID #45 g 02/19/18 Amoxicillin/Potassium Clav [Augmentin ES Suspension] 600 mg PO BID #30 ml Anemia: Yes Asthma: No Cancer: Yes (Tongue and throat CA 2010) Cardiac Disorders: Yes CVA: No COPD: No CHF: No Dementia: No Diabetes: No GI Disorders: Yes (GERD) Disorders: (BPH) HTN: Yes Hypercholesterolemia: Yes Liver Disease: No Seizures: No Thyroid Disease: Yes (hypo) - Surgical History Abdominal Surgery: No Appendectomy: No Cardiac Surgery: No Cholecystectomy: No GI Surgery: Yes (G tube) Lung Surgery: No Neurologic Surgery: No Orthopedic Surgery: Yes - Immunization History Immunization Up to Date: Yes - Suicide/Smoking/Psychosocial Hx Smoking History: Never smoked Have you smoked in the past 12 months: No Information on smoking cessation initiated: No Hx Alcohol Use: No Drug/Substance Use Hx: No Substance Use Type: None Hx Substance Use Treatment: No *Physical Exam - Vital Signs Last Vital Signs Temp Pulse Resp BP Pulse Ox 97.7 F 95 H 20 118/55 L 96 09/21/18 13:41 09/21/18 13:41 09/21/18 13:41 09/21/18 13:41 09/21/18 13:41 *DC/Admit/Observation/Transfer Diagnosis at time of Disposition: Hemoptysis - Discharge Dispostion Condition at time of disposition: Stable - Referrals - Patient Instructions - Post Discharge Activity
--- NOTE | 2018-09-21 16:15 | PDOC ---
Documentation entered by Jaqueline Barrow SCRIBE, acting as scribe for Dio Franco MD. Dio Franco MD: This documentation has been prepared by the scribe, Jaqueline Barrow SCRIBE, under my direction and personally reviewed by me in its entirety. I confirm that the documentation accurately reflects all work, treatment, procedures, and medical decision making performed by me. Attending Attestation - Resident Resident Name: Nolberto Hidalgo - ED Attending Attestation I have performed the following: I have examined & evaluated the patient, The case was reviewed & discussed with the resident, I agree w/resident's findings & plan - HPI HPI: 09/21/18 16:08 73-year-old male with history of nasopharyngeal CA, COPD on oxygen presents from home with hemoptysis for 8d. Pt has h/o radiation treatment to the neck 2010, since then will have occasional episodes of hemoptysis, but now with daily and ongoing cough with white/brown phlegm and blood. no lung/thoracic pain , has had worsening dyspnea over the last 2 days, and had subjective fever/ chills for two days. - Physicial Exam PE: 09/21/18 16:13 O2 sat 96% on his baseline supplemental oxygen, vital signs otherwise normal Seated in wheelchair, oxygen in place, baseline state dyspnea Oropharynx without any active bleeding or lesions Crackles and decreased breath sounds in the left lower and left mid lung field, right side is clear Heart is regular with systolic ejection murmur Abdomen benign No edema - Medical Decision Making 09/21/18 16:14 73-year-old male with history of COPD and nasopharyngeal CA status post radiation presents with 8 days of persistent hemoptysis, question infectious versus neoplastic. No acute respiratory distress at this time. Sepsis workup initiated given subjective fever/chills at home Labs, EKG Chest x-ray, will likely need CT chest Supplemental oxygen Admission
[2018-09-21 16:27] LABS: BASO % 0.2 % (0-2.0); EOS % 0.8 % (0-4.5); HEMATOCRIT 32.6 % (35.4-49); HEMOGLOBIN 10.9 GM/dL (11.7-16.9); LYMPH % 5.7 % (8-40); MCH 29.6 pg (25.7-33.7); MCHC 33.3 g/dl (32.0-35.9); MEAN CELL VOLUME 88.8 fl (80-96); MEAN PLT VOLUME 8.2 fl (7.5-11.1); MONO % 7.6 % (3.8-10.2); NEUT % 85.7 % (42.8-82.8); PLATELET COUNT 217 K/MM3 (134-434); RBC 3.67 M/mm3 (4.00-5.60); RDW 13.7 % (11.9-15.9)
[2018-09-21 16:31] LABS: INR 1.08 (0.83-1.09); PROTHROMBIN TIME (PATIENT) 12.8 SEC (9.7-13.0)
[2018-09-21 16:34] LABS: ACTIVATED PTT 33.3 SECONDS (25.2-36.5)
[2018-09-21 16:55] LABS: ALBUMIN 3.4 g/dl (3.4-5.0); BILIRUBIN,TOTAL 0.7 mg/dL (0.2-1); BLOOD UREA NITROGEN 29.9 mg/dL (7-18); POTASSIUM 3.7 mmol/L (3.5-5.1); TOT PROT 7.1 g/dl (6.4-8.2)
[2018-09-21] MEDS ORDERED: ALBUTEROL SO4 0.083% IH SOL 2.5 MG/3 ML VIAL.NEB. NEB PRN (20:20)
[2018-09-21] MEDS ORDERED: ALBUTEROL SO4 2.5/IPRATROPIUM 0.5 INH SOL 3 ML VIAL.NEB. NEB PRN (20:20)
[2018-09-21] MEDS ORDERED: INSULIN (NOVOLOG) ASPART 100 UNITS/ML 10ML VIAL ONE (23:33)
[2018-09-22] MEDS: GABAPENTIN 250 MG/5 ML ORAL SOLUTION, 470 ML BOTTLE GT SCH ×3 (00:50→13:03)
[2018-09-22] MEDS ORDERED: LEVOTHYROXINE NA 125 MCG TABLET (FP) PO SCH (07:00)
[2018-09-22 08:12] LABS: BASO % 0.3 % (0-2.0); EOS % 2.3 % (0-4.5); HEMATOCRIT 33.8 % (35.4-49); HEMOGLOBIN 11.5 GM/dL (11.7-16.9); LYMPH % 11.5 % (8-40); MCH 30.1 pg (25.7-33.7); MCHC 34.2 g/dl (32.0-35.9); MEAN PLT VOLUME 8.1 fl (7.5-11.1); MONO % 7.3 % (3.8-10.2); NEUT % 78.6 % (42.8-82.8); RBC 3.84 M/mm3 (4.00-5.60); RDW 13.8 % (11.9-15.9)
[2018-09-22 08:47] LABS: ALBUMIN 3.5 g/dl (3.4-5.0); BILIRUBIN,TOTAL 0.7 mg/dL (0.2-1); BLOOD UREA NITROGEN 20.9 mg/dL (7-18); CALCIUM 9.1 mg/dL (8.5-10.1); CREATININE 0.8 mg/dL (0.55-1.3); MAGNESIUM 2.4 mg/dL (1.8-2.4); PHOSPHOROUS 3.3 mg/dL (2.5-4.9); POTASSIUM 3.7 mmol/L (3.5-5.1); TOT PROT 7.4 g/dl (6.4-8.2)
--- NOTE | 2018-09-22 09:37 | HP ---
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[employer] , [employer] History of Recent Travel: No Home Medications - Allergies Allergies/Adverse Reactions: Allergies Allergy/AdvReac Type Severity Reaction Status Date / Time tamsulosin HCl [From Flomax] AdvReac Intermediate dizziness Verified 02/14/18 06 :07 - Home Medications Home Medications: Ambulatory Orders Aspirin [ASA -] 81 mg PO DAILY 10/20/15 Cholecalciferol (Vitamin D3) [Vitamin D3] 2,000 unit PO DAILY 10/20/15 Cyanocobalamin (Vitamin B-12) [Vitamin B-12] 1,000 mcg PO DAILY 10/20/15 Levothyroxine Sodium [Unithroid] 125 mcg PO DAILY 10/20/15 Rosuvastatin Calcium [Crestor] 10 mg PO HS 10/20/15 Acetaminophen [Tylenol .Regular Strength -] 650 mg PO Q6H PRN tablet 07/06/17 Midodrine HCl [Proamatine -] 5 mg PO BID-MID PRN #60 tablet 07/06/17 Albuterol 0.083% Nebulizer Malissa [Ventolin 0.083% Nebulizer Soln -] 1 amp NEB PRN PRN 01/16/18 Amlodipine Besylate [Norvasc -] 5 mg PO DAILY 01/16/18 Fluticasone Prop 0.05% Nasal [Flonase -] 2 spray NS DAILY PRN 01/16/18 Sodium Chloride 1,000 mg MC DAILY 01/16/18 Acetaminophen [Tylenol .Regular Strength -] 650 mg PO Q4H PRN tablet 01/21/18 Albuterol 2.5/Ipratropium 0.5 [Duoneb -] 1 amp NEB Q4H PRN amp 01/21/18 Aspirin [ASA -] 81 mg PO DAILY tab.chew 01/21/18 Gabapentin Liquid [Neurontin Oral Liquid -] 100 mg GT TID #120 ml 02/19/18 Nystatin/Triamcinolone Top Cr [Mycolog II -] 1 applic TP BID #45 g 02/19/18 Amoxicillin/Potassium Clav [Augmentin ES Suspension] 600 mg PO BID #30 ml Family Disease History - Family Disease History Family Disease History: CA: Father (G-E junction tumor), Mother (lung ca), Sister (breast ca), Other: Brother (goiter surgery) Physical Examination Vital Signs: Vital Signs Temperature 98.9 F 09/22/18 06:04 Pulse Rate 76 09/22/18 06:04 Respiratory Rate 20 09/22/18 06:04 Blood Pressure 157/99 09/22/18 06:04 O2 Sat by Pulse Oximetry (%) 99 09/22/18 06:04 Cardiovascular: Yes: Regular Rate and Rhythm Respiratory: Yes: On Nasal O2, Rhonchi Gastrointestinal: Yes: Normal Bowel Sounds, Soft Edema: No Labs: CBC, BMP 09/22/18 07:46 Imaging - Results Cat Scan: Report Reviewed Problem List - Problems (1) Aspiration into respiratory tract Assessment/Plan: IV ABX ID AND PULM CONSULTS MONITOR Code(s): T17.908A - UNSP FB IN RESP TRACT, PART UNSP CAUSING OTH INJURY, INIT Qualifiers: Encounter type: initial encounter Qualified Code(s): T17.908A - Unspecified foreign body in respiratory tract, part unspecified causing other injury, initial encounter (2) Hemoptysis Assessment/Plan: DUE TO ABOVE Code(s): R04.2 - HEMOPTYSIS (3) HLD (hyperlipidemia) Assessment/Plan: CRESTOR Code(s): E78.5 - HYPERLIPIDEMIA, UNSPECIFIED Qualifiers: Hyperlipidemia type: pure hypercholesterolemia Qualified Code(s): E78.00 - Pure hypercholesterolemia, unspecified; E78.0 - Pure hypercholesterolemia (4) HTN (hypertension) Code(s): I10 - ESSENTIAL (PRIMARY) HYPERTENSION Qualifiers: Hypertension type: essential hypertension Qualified Code(s): I10 - Essential (primary) hypertension (5) History of throat cancer Code(s): Z85.819 - PRSNL HX OF MALIG NEOPLM OF UNSP SITE LIP,ORAL CAV,& PHARYNX (6) Labile essential hypertension Assessment/Plan: MONITOR ON CURRENT MEDS Code(s): I10 - ESSENTIAL (PRIMARY) HYPERTENSION (7) PNA (pneumonia) Assessment/Plan: ABOVE Code(s): J18.9 - PNEUMONIA, UNSPECIFIED ORGANISM Qualifiers: Pneumonia type: aspiration pneumonia
[2018-09-22 09:46] LABS: PLATELET COUNT 212 K/MM3 (134-434)
[2018-09-22] MEDS ORDERED: PANTOPRAZOLE 20 MG TABLET (FP) PO SCH (10:00)
[2018-09-22] MEDS ORDERED: FLUTICASONE PROP 0.05% 16 GM NASAL SPRAY NS PRN (10:07)
[2018-09-22] MEDS ORDERED: PIPERACILLIN/TAZOB 3.375 GM 3.375 GM in DEXTROSE 5%-WATER - 50 ML IVPB SCH ×2 (11:00→18:00)
[2018-09-22] MEDS: amLODIPine BESYLATE 5 MG TABLET (FP) PEG SCH (11:45)
--- NOTE | 2018-09-22 11:47 | PN ---
Progress Note (short form) - Note Progress Note: ID CONSULT DICTATED R/O RECURRENT ASP PNEUMONIA RECURENT HEMOPTYSIS HX AUTONOMIC DYSFUNCTION/ RECURRENT SYNCOPE HX HEAD AND NECK CA HX + SPUTUM C/S MRSA/ PSEUDOMONAS OBTAIN C/S EMPIRIC VANCOMYCIN / CEFEPIME
--- NOTE | 2018-09-22 12:19 | CONS ---
INFECTIOUS DISEASE CONSULTATION DATE OF CONSULTATION: DATE OF DICTATION: 09/22/2018 HISTORY: The patient is a 73-year-old male with a history of head and neck CA status post radiation therapy, feeding gastrostomy, autonomic dysfunction/recurrent syncope now re-admitted with hemoptysis. Patient has had recurrent episodes of hemoptysis over the past several years. He was most recently admitted in February of 2018 for a recurrent aspiration pneumonia. He reports that over the past week he has had recurrent taty hemoptysis associated with increasing shortness of breath. He reports having a syncopal episode at home and developing fever 1 day prior to admission. He presented to the emergency room where CAT scan of the chest showed atelectasis and bibasilar infiltrates. He was empirically treated with Zosyn. Patient reports cough productive of thick sputum with taty blood. He denies any chest pain. No complaints of dyspnea at the present time on nasal cannula O2. He has had a history of recurrent aspiration pneumonia, and in the past, he has had positive sputum cultures for pseudomonas and MRSA. He denies any ill contacts, any recent travel. No recent antibiotic therapy. Last admission was in February 2018. PAST MEDICAL HISTORY: Positive for head and neck cancer status post radiation therapy, COPD, gastroesophageal reflux, BPH, hypothyroidism, diabetes mellitus, autonomic dysfunction/recurrent syncope. PAST SURGICAL HISTORY: Status post feeding gastrostomy. ALLERGIES: TAMSULOSIN. MEDICATIONS: At the present time include Tylenol, albuterol, amlodipine, Zosyn, Neurontin, Zantac, Crestor. SOCIAL HISTORY: Lives at home with his significant other. He is a nonsmoker, nondrinker. Patient is fed through a feeding gastrostomy tube. SYSTEMS REVIEW: Neurologic: Positive for syncopal episode. There is no seizure activity or focal weakness. Cardiac: Negative chest pain or palpitations. Respiratory: As per HPI. Gastrointestinal: Positive for feeding gastrostomy. Genitourinary: Positive for BPH. Negative for urinary tract infection. LABORATORY DATA: White count 7.0, hematocrit 33.8, platelets 212, BUN 20, creatinine 0.8. Liver enzymes normal. INR 1.0. Cultures are pending. PHYSICAL EXAMINATION: General: He is awake and alert, thin male in no acute distress. Breathing is nonlabored. Vital Signs: Temperature is 98.6, blood pressure 180/109, pulse 87 regular, respirations 20 per minute. HEENT: Sclerae anicteric. Heart: Sounds S1, S2. Lungs: Rales at the bases bilaterally. Abdomen: Soft. Feeding gastrostomy tube is in place. Extremities: Negative for edema. IMPRESSION: 1. Rule out recurrent aspiration pneumonia. 2. Recurrent hemoptysis. 3. History of autonomic dysfunction/recurrent syncope. 4. Head and neck cancer status post radiation therapy. 5. Positive sputum culture, methicillin-resistant Staphylococcus aureus, and pseudomonas. PLAN: Await cultures. Empiric antibiotic coverage with vancomycin and cefepime. Pulmonary evaluation. We will follow. Thank you for the kind referral. ANDREW TURNER M.D. [id number]
--- NOTE | 2018-09-22 12:28 | PN ---
Progress Note (short form) - Note Progress Note: PULMONARY CONSULTATION DICTATED 09/22/18 IMP BILATERAL PNEUMONIA LIKELY ASPIRATION HEMOPTYSIS SECONDARY TO PNEUMONIA COPD H/O ORAL PHARYNGEAL CA S/P RT H/O ASPIRATION S/P GT AUTONOMIC DYSFUNCTION DM BPH PLAN ABX PER ID O2 INHALED BRONCHODILATORS F/U CHEST X-RAY QUANTIFY HEMOPTYSIS F/U CHEST CT IN 4-6 WKS TO CONFIRM RESOLUTION OF INFILTRATES FLEX BRONCHOSCOPY IF HEMOPTYSIS PERSIST DR UMANA Problem List - Problems (1) Hemoptysis Code(s): R04.2 - HEMOPTYSIS (2) Aspiration into respiratory tract Code(s): T17.908A - UNSP FB IN RESP TRACT, PART UNSP CAUSING OTH INJURY, INIT Qualifiers: Encounter type: initial encounter Qualified Code(s): T17.908A - Unspecified foreign body in respiratory tract, part unspecified causing other injury, initial encounter (3) Aspiration pneumonia Code(s): J69.0 - PNEUMONITIS DUE TO INHALATION OF FOOD AND VOMIT Qualifiers: Aspiration pneumonia type: unspecified Laterality: right Lung location: unspecified part of lung Qualified Code(s): J69.0 - Pneumonitis due to inhalation of food and vomit (4) Autonomic postural hypotension Code(s): I95.1 - ORTHOSTATIC HYPOTENSION (5) Benign prostatic hypertrophy Code(s): N40.0 - BENIGN PROSTATIC HYPERPLASIA WITHOUT LOWER URINRY TRACT SYMP (6) CAD (coronary artery disease) Code(s): I25.10 - ATHSCL HEART DISEASE OF [place] CORONARY ARTERY W/O ANG PCTRS Qualifiers: Coronary Disease-Associated Artery/Lesion type: [place] artery [place] vs. transplanted heart: [place] heart Associated angina: without angina Qualified Code(s): I25.10 - Atherosclerotic heart disease of [place] coronary artery without angina pectoris (7) HLD (hyperlipidemia) Code(s): E78.5 - HYPERLIPIDEMIA, UNSPECIFIED Qualifiers: Hyperlipidemia type: pure hypercholesterolemia Qualified Code(s): E78.00 - Pure hypercholesterolemia, unspecified; E78.0 - Pure hypercholesterolemia (8) HTN (hypertension) Code(s): I10 - ESSENTIAL (PRIMARY) HYPERTENSION Qualifiers: Hypertension type: essential hypertension Qualified Code(s): I10 - Essential (primary) hypertension (9) History of throat cancer Code(s): Z85.819 - PRSNL HX OF MALIG NEOPLM OF UNSP SITE LIP,ORAL CAV,& PHARYNX
[2018-09-22] MEDS: VANCOMYCIN 1 GRAM (PRE-DOCKED) 1,000 MG/250 ML BAG IVPB SCH (13:36)
--- NOTE | 2018-09-22 13:36 | CONS ---
PULMONARY CONSULTATION DATE OF CONSULTATION: 09/22/2018 REFERRING PHYSICIAN: Fern Murillo MD HISTORY: The patient is a 73-year-old white male known to me from previous hospitalizations as well as followed with past medical history that includes pharyngeal CA status post radiation therapy complicated by autonomic disability, autonomic labile blood pressures maintained on Midodrine as well as amlodipine, history of chronic dysphagia, recurrent aspiration pneumonia, status post GT, hyperlipidemia, benign BPH, anemia, diabetes, hypothyroidism, nonsmoker. Admitted to [facility] on September 21 with complaint of 2-day history hemoptysis as well as fever. Patient states he was doing well until a couple of days prior to admission when he started developing a fever up to 103, chills as well as cough productive of bloody sputum. Denied any chest pain, nausea, vomiting, diarrhea, diaphoresis. Denied any significant shortness of breath. Patient has a history of hemoptysis and had a bronchoscopy 2 years ago, which revealed no evidence of malignancy, no evidence of endobronchial pathology. On admission, he underwent a CT scan of the chest, which revealed bibasilar infiltrates. He was placed on broad-spectrum antibiotics. Patient, as stated before, has a history of recurrent aspiration pneumonias and status post GT insertion. Occasionally he takes p.o. but on predominantly GT feedings. PAST MEDICAL HISTORY: Again, includes tongue and throat CA status post RT, COPD, history of BPH, GERD, labile hypertension, autonomic dysfunction, hypothyroidism, anemia, diabetes, pneumonia, and chronic dysphagia status post GT as well as BPH and orthostatic hypotension. REVIEW OF SYSTEMS: Positive fever, positive chills, positive hemoptysis. No chest pain, no palpitations, no nausea, no vomiting. CURRENT MEDICATIONS: Include cefepime, vancomycin, Neurontin, albuterol, DuoNeb, Flonase, Norvasc, Zantac, Crestor, and Synthroid. SOCIAL HISTORY: Nonsmoker. No occupational exposures. PHYSICAL EXAMINATION: General: The patient is a well-developed, well-nourished male awake and alert in no acute distress. Vital Signs: He is currently afebrile. Heart rate is 87, blood pressure is 180/109, respiratory rate is 20, O2 saturation is 99% on 2 L. HEENT: Normocephalic, atraumatic. Neck: Supple. Heart: Regular S1, S2. Chest: Bilateral rales 1/3 up. Abdomen: Soft. Bowel sounds are positive. Extremities: No cyanosis or edema. LABORATORIES: WBC 7, hemoglobin 11.5, hematocrit 33.8 with a platelet count of 212,000. INR is 1.08. Chemistries: BUN 20, creatinine 0.8. Chest CT, again, reveals bilateral lower lobe alveolar opacities, bilateral upper lobe infiltrates, minimal bibasilar bronchiectatic changes. IMPRESSION: 1. Fever, hemoptysis likely secondary to bilateral pneumonia, likely aspiration. 2. Hemoptysis, again, secondary to pneumonia. 3. History of chronic obstructive pulmonary disease. 4. History of oropharyngeal cancer status post radiation therapy. 5. History of dysphagia. 6. History of aspiration status post gastrostomy tube. 7. Autonomic dysfunction with labile blood pressures. 8. Diabetes. 9. Benign prostatic hypertrophy. PLAN: Continue antibiotics as per Infectious Disease. Obtain cultures. Supplemental O2. Inhaled bronchodilators. Follow up chest x-ray. Quantify hemoptysis. Follow up chest CT in 4-6 weeks to confirm resolution of infiltrates and a flex bronchoscopy if hemoptysis persists. SOWMYA UMANA M.D. [id number]
[2018-09-22] MEDS: CEFEPIME 1 GM in DEXTROSE 5%-WATER 100 ML IVPB SCH ×2 (16:18→17:14)
[2018-09-22] MEDS ORDERED: amLODIPine BESYLATE 5 MG TABLET (FP) PO ONE (18:29)
[2018-09-22] MEDS ORDERED: ROSUVASTATIN CA 10 MG TABLET (FP) PO SCH (22:00)
[2018-09-23] MEDS ORDERED: VANCOMYCIN 1 GRAM (PRE-DOCKED) 1,000 MG/250 ML BAG IVPB ONE (00:43)
[2018-09-23] MEDS: GABAPENTIN 250 MG/5 ML ORAL SOLUTION, 470 ML BOTTLE GT SCH ×4 (00:55→22:07)
[2018-09-23] MEDS: VANCOMYCIN 1 GRAM (PRE-DOCKED) 1,000 MG/250 ML BAG IVPB SCH ×3 (00:55→23:15)
[2018-09-23] MEDS: RANITIDINE HCL 150 MG/10 ML UNIT-DOSE PEG SCH ×3 (00:55→22:07)
[2018-09-23] MEDS ORDERED: amLODIPine BESYLATE 5 MG TABLET (FP) ONE (00:59)
[2018-09-23] MEDS ORDERED: hydrALAZINE HCL 20 MG/ML VIAL IVPB ONE (02:58)
[2018-09-23] MEDS ORDERED: DEXTROSE 5%-WATER 100 ML IVPB ONE ×2 (03:06→08:29)
[2018-09-23] MEDS ORDERED: CEFEPIME HCL 1 GM VIAL (RESTRICTED TO ID) ONE ×3 (03:06→16:53)
[2018-09-23] MEDS ORDERED: amLODIPine BESYLATE 5 MG TABLET (FP) PO ONE (03:13)
[2018-09-23] MEDS: CEFEPIME 1 GM in DEXTROSE 5%-WATER 100 ML IVPB SCH ×3 (03:42→17:46)
[2018-09-23] MEDS: LEVOTHYROXINE NA 125 MCG TABLET (FP) PEG SCH (07:14)
[2018-09-23] MEDS: amLODIPine BESYLATE 5 MG TABLET (FP) PEG SCH ×2 (09:13→11:32)
--- NOTE | 2018-09-23 09:41 | PN ---
Progress Note, Physician Chief Complaint: AWAKE ALERT C/O BACK PAIN - Current Medication List Current Medications: Active Medications Acetaminophen (Tylenol -) 650 mg PO Q6H PRN PRN Reason: PAIN LEVEL 6-10 Albuterol Sulfate (Ventolin 0.083% Nebulizer Soln -) 1 amp NEB PRN PRN PRN Reason: Dyspnea Albuterol/Ipratropium (Duoneb -) 1 amp NEB Q4H PRN PRN Reason: SHORTNESS OF BREATH Amlodipine Besylate (Norvasc -) 5 mg PEG DAILY [facility] Fluticasone Propionate (Flonase -) 2 spray NS DAILY PRN PRN Reason: NASAL CONGESTION Gabapentin (Neurontin Oral Liquid -) 100 mg GT TID [facility] Last Admin: 09/23/18 06:46 Dose: 100 mg Vancomycin HCl (Vancomycin (Pre-Docked)) 1,000 mg in 250 mls @ 166.667 mls/hr IVPB BID@0000,1200 [facility]; Protocol Last Admin: 09/23/18 00:55 Dose: 166.667 mls/hr Cefepime HCl 1 gm/ Dextrose 100 mls @ 200 mls/hr IVPB Q8H-IV [facility]; Protocol Last Admin: 09/23/18 09:13 Dose: 200 mls/hr Levothyroxine Sodium (Synthroid -) 125 mcg PEG AM [facility] Last Admin: 09/23/18 07:14 Dose: 125 mcg Ranitidine HCl (Zantac Oral Solution -) 150 mg PEG BID [facility] Last Admin: 09/23/18 09:13 Dose: 150 mg Rosuvastatin Calcium (Crestor -) 10 mg PO HS [facility] - Objective Vital Signs: Vital Signs Temperature 98.2 F 09/23/18 02:07 Pulse Rate 91 H 09/23/18 04:15 Respiratory Rate 20 09/23/18 02:07 Blood Pressure 186/109 H 09/23/18 04:15 O2 Sat by Pulse Oximetry (%) 99 09/23/18 03:48 Constitutional: Yes: Mild Distress Eyes: Yes: WNL HENT: Yes: WNL Neck: Yes: WNL Cardiovascular: Yes: Regular Rate and Rhythm Respiratory: Yes: Diminished, Rhonchi Gastrointestinal: Yes: Normal Bowel Sounds, Other (GTUBE) Genitourinary: Yes: WNL Musculoskeletal: Yes: Back Pain Extremities: Yes: WNL Edema: No Peripheral Pulses WNL: Yes Integumentary: Yes: WNL Wound/Incision: Yes: Clean/Dry Neurological: Yes: Other Psychiatric: Yes: WNL Labs: CBC, BMP 09/22/18 07:46 09/22/18 07:46 INR, PTT INR 1.08 (0.83-1.09) 09/21/18 15:57 Problem List - Problems (1) Lumbago Code(s): M54.5 - LOW BACK PAIN (2) Aspiration into respiratory tract Code(s): T17.908A - UNSP FB IN RESP TRACT, PART UNSP CAUSING OTH INJURY, INIT Qualifiers: Encounter type: initial encounter Qualified Code(s): T17.908A - Unspecified foreign body in respiratory tract, part unspecified causing other injury, initial encounter (3) Aspiration pneumonia Code(s): J69.0 - PNEUMONITIS DUE TO INHALATION OF FOOD AND VOMIT Qualifiers: Aspiration pneumonia type: unspecified Laterality: right Lung location: unspecified part of lung Qualified Code(s): J69.0 - Pneumonitis due to inhalation of food and vomit (4) Benign prostatic hypertrophy Code(s): N40.0 - BENIGN PROSTATIC HYPERPLASIA WITHOUT LOWER URINRY TRACT SYMP (5) CAD (coronary artery disease) Code(s): I25.10 - ATHSCL HEART DISEASE OF [place] CORONARY ARTERY W/O ANG PCTRS Qualifiers: Coronary Disease-Associated Artery/Lesion type: [place] artery [place] vs. transplanted heart: [place] heart Associated angina: without angina Qualified Code(s): I25.10 - Atherosclerotic heart disease of [place] coronary artery without angina pectoris (6) Carotid stenosis Code(s): I65.29 - OCCLUSION AND STENOSIS OF UNSPECIFIED CAROTID ARTERY (7) Dizziness Code(s): R42 - DIZZINESS AND GIDDINESS (8) Dysautonomia orthostatic hypotension syndrome Code(s): G90.3 - MULTI-SYSTEM DEGENERATION OF THE AUTONOMIC NERVOUS SYSTEM (9) HLD (hyperlipidemia) Code(s): E78.5 - HYPERLIPIDEMIA, UNSPECIFIED Qualifiers: Hyperlipidemia type: pure hypercholesterolemia Qualified Code(s): E78.00 - Pure hypercholesterolemia, unspecified; E78.0 - Pure hypercholesterolemia (10) HTN (hypertension) Code(s): I10 - ESSENTIAL (PRIMARY) HYPERTENSION Qualifiers: Hypertension type: essential hypertension Qualified Code(s): I10 - Essential (primary) hypertension (11) History of throat cancer Code(s): Z85.819 - PRSNL HX OF MALIG NEOPLM OF UNSP SITE LIP,ORAL CAV,& PHARYNX Assessment/Plan IV ABX PER ID PULMONARY EVAL CHANGED FEEDS TO BOLUS TID NEBS LIDODERM PATCH TO BACK DVT PROPHYLAXIS PT EVAL
[2018-09-23] MEDS: LIDOCAINE 5% TOPICAL PATCH TP SCH (10:06)
--- NOTE | 2018-09-23 13:17 | EKG ---
Test Reason : Blood Pressure : / mmHG Vent. Rate : 080 BPM Atrial Rate : 080 BPM P-R Int : 168 ms QRS Dur : 098 ms QT Int : 390 ms P-R-T Axes : 015 000 039 degrees QTc Int : 449 ms NORMAL SINUS RHYTHM NORMAL ECG WHEN COMPARED WITH ECG OF 14-FEB-2018 05:18, NO SIGNIFICANT CHANGE WAS FOUND Confirmed by ASHLEIGH HERBERT MD ([id number]) on 09/23/2018 1:17:34 PM Referred By: Ermias DENISE Confirmed By:ASHLEIGH HERBERT MD
--- NOTE | 2018-09-23 14:37 | PN ---
Progress Note (short form) - Note Progress Note: PULMONARY Still with some hemoptysis. No shortness of breath. No fevers recorded. Vital Signs Period Temp Pulse Resp BP Sys/Leblanc Pulse Ox Last 24 Hr 97.9 F-98.2 F 76-97 16-20 106-224/68-137 95-99 Gen: NAD at rest Heart: RRR Lung: decreased breath sounds at the bases Abd: soft, nontender Ext: no edema CBC, BMP 09/22/18 07:46 09/22/18 07:46 Active Medications Acetaminophen (Tylenol -) 650 mg PO Q6H PRN PRN Reason: PAIN LEVEL 6-10 Albuterol Sulfate (Ventolin 0.083% Nebulizer Soln -) 1 amp NEB PRN PRN PRN Reason: Dyspnea Albuterol/Ipratropium (Duoneb -) 1 amp NEB Q4H PRN PRN Reason: SHORTNESS OF BREATH Amlodipine Besylate (Norvasc -) 5 mg PEG DAILY [facility] Last Admin: 09/23/18 11:32 Dose: Not Given Fluticasone Propionate (Flonase -) 2 spray NS DAILY PRN PRN Reason: NASAL CONGESTION Gabapentin (Neurontin Oral Liquid -) 100 mg GT TID [facility] Last Admin: 09/23/18 13:40 Dose: 100 mg Vancomycin HCl (Vancomycin (Pre-Docked)) 1,000 mg in 250 mls @ 166.667 mls/hr IVPB BID@0000,1200 [facility]; Protocol Last Admin: 09/23/18 11:25 Dose: 166.667 mls/hr Cefepime HCl 1 gm/ Dextrose 100 mls @ 200 mls/hr IVPB Q8H-IV [facility]; Protocol Last Admin: 09/23/18 09:13 Dose: 200 mls/hr Levothyroxine Sodium (Synthroid -) 125 mcg PEG AM [facility] Last Admin: 09/23/18 07:14 Dose: 125 mcg Lidocaine (Lidoderm Patch -) 1 patch TP DAILY [facility] Last Admin: 09/23/18 10:06 Dose: 1 patch Miscellaneous (Lidoderm Patch Removal) 1 each MC DAILY@2200 [facility] Ranitidine HCl (Zantac Oral Solution -) 150 mg PEG BID [facility] Last Admin: 09/23/18 09:13 Dose: 150 mg Rosuvastatin Calcium (Crestor -) 10 mg PO HS [facility] A/P Pneumonia likely Aspiration Hemoptysis COPD h/o Pharyngeal Ca s/p RT s/p PEG DM Hyperlipidemia HTN - continue antibiotics - f/u cultures - monitor hemoptysis - inhaled bronchodilators - O2 to keep SpO2 >90% - DVT prophylaxis
--- NOTE | 2018-09-23 15:13 | PN ---
Progress Note (short form) - Note Progress Note: still with intermittent hemoptysis no fevers Vital Signs Period Temp Pulse Resp BP Sys/Leblanc Pulse Ox Last 24 Hr 97.9 F-98.2 F 76-97 16-20 106-224/68-137 95-99 cpr-rrr lungs decreased bs at bases abd soft,nt +gt ext no edema CBC, BMP 09/22/18 07:46 09/22/18 07:46 Microbiology 09/22/18 10:47 Blood - Peripheral Venous Blood Culture - Preliminary NO GROWTH OBTAINED AFTER 24 HOURS, INCUBATION TO CONTINUE FOR 4 DAYS. 09/22/18 10:55 Blood - Peripheral Venous Blood Culture - Preliminary NO GROWTH OBTAINED AFTER 24 HOURS, INCUBATION TO CONTINUE FOR 4 DAYS. a/p bibasilar pneumonia most likely aspiration bronchiectasis with hemoptysis continue vancomycin and cefepime will give patient a sputum cup to get culture will check vanco trough in am history of head and neck cancer MRSA contact isolation to continue
--- NOTE | 2018-09-23 15:57 | CONSULT ---
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 He says he's had hemoptysis for a few years but has worsened over the last few weeks. He normally has copious secretions without blood. He also states that he's had subjective fevers to 104 on Friday night. Today patient states he still has hemoptysis. He is currently being treated for B/L aspiration PNA and is on cefepime and vanc per ID. No recent travels Background: lib[place], mongolian Colonoscopy in the last 10 years. Says it was normal Social: Never smoker, denies drugs Family hx: Sister w/ Breast cancer, Father with Esophageal Ca, Colon Ca REVIEW OF SYSTEMS: CONSTITUTIONAL: fevers Absent: chills, diaphoresis, generalized weakness, malaise, loss of appetite, weight change HEENT: Absent: rhinorrhea, nasal congestion, throat pain, throat swelling, difficulty swallowing, mouth swelling, ear pain, eye pain, visual changes CARDIOVASCULAR: Absent: chest pain, syncope, palpitations, irregular heart rate, lightheadedness , peripheral edema RESPIRATORY: cough, hemoptysis Absent:dyspnea with exertion, orthopnea, wheezing, stridor GASTROINTESTINAL: Absent: abdominal pain, abdominal distension, nausea, vomiting, diarrhea, melena GENITOURINARY: Absent: dysuria, frequency, urgency, hesitancy, hematuria, flank pain, genital pain Neuro: numbness feet and toes, autonomic neuropathy HEMATOLOGIC/IMMUNOLOGIC: Absent: easy bleeding, easy bruising, lymphadenopathy PHYSICAL EXAMINATION Vital Signs - 24 hr 09/22/18 09/22/18 09/22/18 18:13 19:00 21:05 Temperature 98.2 F Pulse Rate 95 H 87 Pulse Rate [ 89 Apical] Respiratory 20 20 16 Rate Blood Pressure 224/119 H 183/105 H Blood Pressure 212/122 H [Left Arm] O2 Sat by Pulse 99 Oximetry (%) 09/23/18 09/23/18 09/23/18 01:00 02:07 02:25 Temperature 98.2 F Pulse Rate 97 H Pulse Rate [ 87 Apical] Respiratory 16 20 Rate Blood Pressure 208/130 H 207/137 H Blood Pressure 202/98 H [Left Arm] O2 Sat by Pulse 99 Oximetry (%) 09/23/18 09/23/18 09/23/18 02:47 03:00 03:45 Temperature Pulse Rate Pulse Rate [ Apical] Respiratory Rate Blood Pressure 199/110 H 145/99 Blood Pressure [Left Arm] O2 Sat by Pulse 99 Oximetry (%) 09/23/18 09/23/18 09/23/18 03:48 04:00 04:15 Temperature Pulse Rate 91 H Pulse Rate [ Apical] Respiratory Rate Blood Pressure 182/97 H 186/109 H Blood Pressure [Left Arm] O2 Sat by Pulse 99 Oximetry (%) 09/23/18 09/23/18 09/23/18 07:30 09:00 09:15 Temperature 97.9 F Pulse Rate 76 Pulse Rate [ Apical] Respiratory 18 Rate Blood Pressure 106/68 156/84 Blood Pressure [Left Arm] O2 Sat by Pulse 95 Oximetry (%) 09/23/18 09/23/18 11:32 15:13 Temperature 97.8 F Pulse Rate 75 Pulse Rate [ Apical] Respiratory 20 Rate Blood Pressure 142/86 101/54 L Blood Pressure [Left Arm] O2 Sat by Pulse Oximetry (%) GENERAL: Awake, alert, and fully oriented, in no acute distress. HEAD: Normal with no signs of trauma. EYES: Pupils equal, round and reactive to light, extraocular movements intact, sclera anicteric, conjunctiva clear. EARS, NOSE, THROAT: oropharynx clear without exudates. dry mucous membranes. NECK: supple without lymphadenopathy LUNGS: decreased breath sounds at the bases HEART: RRR, no MGRs ABDOMEN: Soft, nontender, not distended, normoactive bowel sounds, +Peg in place. no erythema, warmth. LOWER EXTREMITIES: 2+ pulses, warm, No peripheral edema. NEUROLOGICAL: Cranial nerves II-XII intact. Normal speech. Testes: circumsized, No masses palpable, no tenderness, no discharge ASSESSMENT/PLAN: #Hemoptysis #Aspiration PNA #Hx of Laryngeal Ca- s/p chemotherapy/RT -CXR w/ B/L Lower Lobe infiltrates -IV abx per ID, Vanco, Cefepime -Hgb Stable -Transfuse if Hgb <7 -MRSA isolation Dispo: We will continue to follow the patient. Thank you for this consultative opportunity. Visit type - Emergency Visit Emergency Visit: Yes ED Registration Date: 09/21/18 Care time: The patient presented to the Emergency Department on the above date and was hospitalized for further evaluation of their emergent condition. - New Patient This patient is new to me today: Yes Date on this admission: 09/24/18 - Critical Care Critical Care patient: No ATTENDING PHYSICIAN STATEMENT I saw and evaluated the patient. I reviewed the resident's note and discussed the case with the resident. I agree with the resident's findings and plan as documented. SUBJECTIVE: OBJECTIVE: ASSESSMENT AND PLAN:
--- NOTE | 2018-09-23 17:11 | PN ---
Teaching Attending Note Name of Resident: Dilan Schreiber ATTENDING PHYSICIAN STATEMENT I saw and evaluated the patient. I reviewed the resident's note and discussed the case with the resident. I agree with the resident's findings and plan as documented. SUBJECTIVE: Patient seen and examined 73 year old male with history of hypopharynx tumor s/p RT/ chemotherapy. Resultant hypothyroid post RT Non smoker, non drinker, with ? exposures in past Oxygen dependent PEG feeding tube Last Vital Signs Temp Pulse Resp BP Pulse Ox 97.8 F 75 20 101/54 L 95 09/23/18 15:13 09/23/18 15:13 09/23/18 15:13 09/23/18 15:13 09/23/18 09:00 ROS- recent headaches, no diplopia, epistasis, on PEG tube feedings; hemoptysis intermittently, fevers intermittently, frequency, decrease flow nocturia - 3-4 x per night ; numbness feet and toes ; autonomic neuropathy; intermittent diarrhea Current Medications Generic Name Dose Route Start Last Admin Trade Name Freq PRN Reason Stop Dose Admin Acetaminophen 650 mg 09/21/18 20:20 Tylenol - PO Q6H PRN PAIN LEVEL 6-10 Albuterol Sulfate 1 amp 09/21/18 20:20 Ventolin 0.083% Nebulizer Soln - NEB PRN PRN Dyspnea Albuterol/Ipratropium 1 amp 09/21/18 20:20 Duoneb - NEB Q4H PRN SHORTNESS OF BREATH Amlodipine Besylate 5 mg 09/23/18 10:00 09/23/18 11:32 Norvasc - PEG Not Given DAILY [facility] Fluticasone Propionate 2 spray 09/22/18 10:07 Flonase - NS DAILY PRN NASAL CONGESTION Gabapentin 100 mg 09/21/18 22:00 09/23/18 13:40 Neurontin Oral Liquid - GT 100 mg TID [facility] Administration Vancomycin HCl 1,000 mg in 250 mls @ 166.667 mls/hr 09/22/18 12:00 09/23/18 11:25 Vancomycin (Pre-Docked) IVPB 166.667 mls/hr BID@0000,1200 [facility] Administration Protocol Cefepime HCl 1 gm/ Dextrose 100 mls @ 200 mls/hr 09/22/18 12:30 09/23/18 09: 13 IVPB 200 mls/hr Q8H-IV [facility] Administration Protocol Levothyroxine Sodium 125 mcg 09/22/18 10:11 09/23/18 07:14 Synthroid - PEG 125 mcg AM [facility] Administration Lidocaine 1 patch 09/23/18 10:00 09/23/18 10:06 Lidoderm Patch - TP 1 patch DAILY [facility] Administration Miscellaneous 1 each 09/23/18 22:00 Lidoderm Patch Removal MC DAILY@2200 [facility] Ranitidine HCl 150 mg 09/22/18 22:00 09/23/18 09:13 Zantac Oral Solution - PEG 150 mg BID [facility] Administration Rosuvastatin Calcium 10 mg 09/22/18 22:00 Crestor - PO HS [facility] OBJECTIVE: CT- bilateral lower lobe infiltrates HEENT: LIZA, EOM Intact Oropharynx: No thrush, No mucositis Neck: fullness to neck Nodes: Without adenopathy Cor: RSR, No murmurs, No gallops Lungs: Clear to P&A Abd: Soft, Normal bowel sounds, No organomegaly PEG testes descended , circumcised Ext:No significant edema Skin: No rashes, Integument intact ASSESSMENT AND PLAN: Impression Hypopharynx ca - s/p chemotherapy /RT Hypothyroid PEG feeding Bilateral lower lobe infiltrates Plan: Antibiotics per ID
[2018-09-23] MEDS: LIDOCAINE PATCH REMOVAL MC SCH (22:07)
[2018-09-24] MEDS ORDERED: CEFEPIME HCL 1 GM VIAL (RESTRICTED TO ID) ONE ×3 (01:18→17:20)
[2018-09-24] MEDS ORDERED: DEXTROSE 5%-WATER 100 ML IVPB ONE ×3 (01:19→17:20)
[2018-09-24] MEDS: CEFEPIME 1 GM in DEXTROSE 5%-WATER 100 ML IVPB SCH ×3 (01:41→17:29)
[2018-09-24] MEDS: LEVOTHYROXINE NA 125 MCG TABLET (FP) PEG SCH (06:08)
[2018-09-24] MEDS: GABAPENTIN 250 MG/5 ML ORAL SOLUTION, 470 ML BOTTLE GT SCH ×3 (06:08→22:12)
--- NOTE | 2018-09-24 07:59 | PN ---
Progress Note, Physician - Current Medication List Current Medications: Active Medications Acetaminophen (Tylenol -) 650 mg PO Q6H PRN PRN Reason: PAIN LEVEL 6-10 Albuterol Sulfate (Ventolin 0.083% Nebulizer Soln -) 1 amp NEB PRN PRN PRN Reason: Dyspnea Albuterol/Ipratropium (Duoneb -) 1 amp NEB Q4H PRN PRN Reason: SHORTNESS OF BREATH Amlodipine Besylate (Norvasc -) 5 mg PEG DAILY [facility] Last Admin: 09/23/18 11:32 Dose: Not Given Fluticasone Propionate (Flonase -) 2 spray NS DAILY PRN PRN Reason: NASAL CONGESTION Gabapentin (Neurontin Oral Liquid -) 100 mg GT TID [facility] Last Admin: 09/24/18 06:08 Dose: 100 mg Vancomycin HCl (Vancomycin (Pre-Docked)) 1,000 mg in 250 mls @ 166.667 mls/hr IVPB BID@0000,1200 [facility]; Protocol Last Admin: 09/23/18 23:15 Dose: 166.667 mls/hr Cefepime HCl 1 gm/ Dextrose 100 mls @ 200 mls/hr IVPB Q8H-IV [facility]; Protocol Last Admin: 09/24/18 01:41 Dose: 200 mls/hr Levothyroxine Sodium (Synthroid -) 125 mcg PEG AM [facility] Last Admin: 09/24/18 06:08 Dose: 125 mcg Lidocaine (Lidoderm Patch -) 1 patch TP DAILY [facility] Last Admin: 09/23/18 10:06 Dose: 1 patch Miscellaneous (Lidoderm Patch Removal) 1 each MC DAILY@2200 [facility] Last Admin: 09/23/18 22:07 Dose: 1 each Ranitidine HCl (Zantac Oral Solution -) 150 mg PEG BID [facility] Last Admin: 09/23/18 22:07 Dose: 150 mg Rosuvastatin Calcium (Crestor -) 10 mg PO HS [facility] - Objective Vital Signs: Vital Signs Temperature 98.2 F 09/24/18 02:00 Pulse Rate 79 09/24/18 02:00 Respiratory Rate 20 09/24/18 02:00 Blood Pressure 114/65 09/24/18 02:00 O2 Sat by Pulse Oximetry (%) 96 09/23/18 21:00 Cardiovascular: Yes: S1, S2 Respiratory: Yes: On Nasal O2, Rhonchi Gastrointestinal: Yes: Normal Bowel Sounds, Soft Labs: CBC, BMP 09/22/18 07:46 09/22/18 07:46 INR, PTT INR 1.08 (0.83-1.09) 09/21/18 15:57 Problem List - Problems (1) Aspiration into respiratory tract Assessment/Plan: IV ABX--continue vancomycin and cefepime ID AND PULM CONSULTS NOTED MONITOR Code(s): T17.908A - UNSP FB IN RESP TRACT, PART UNSP CAUSING OTH INJURY, INIT Qualifiers: Encounter type: initial encounter Qualified Code(s): T17.908A - Unspecified foreign body in respiratory tract, part unspecified causing other injury, initial encounter (2) Hemoptysis Assessment/Plan: DUE TO ABOVE BRONCHOSCOPY IF PERSISTENT Code(s): R04.2 - HEMOPTYSIS (3) HLD (hyperlipidemia) Assessment/Plan: CRESTOR Code(s): E78.5 - HYPERLIPIDEMIA, UNSPECIFIED Qualifiers: Hyperlipidemia type: pure hypercholesterolemia Qualified Code(s): E78.00 - Pure hypercholesterolemia, unspecified; E78.0 - Pure hypercholesterolemia (4) HTN (hypertension) Code(s): I10 - ESSENTIAL (PRIMARY) HYPERTENSION Qualifiers: Hypertension type: essential hypertension Qualified Code(s): I10 - Essential (primary) hypertension (5) History of throat cancer Code(s): Z85.819 - PRSNL HX OF MALIG NEOPLM OF UNSP SITE LIP,ORAL CAV,& PHARYNX (6) Labile essential hypertension Assessment/Plan: MONITOR ON CURRENT MEDS Code(s): I10 - ESSENTIAL (PRIMARY) HYPERTENSION (7) PNA (pneumonia) Assessment/Plan: ABOVE Code(s): J18.9 - PNEUMONIA, UNSPECIFIED ORGANISM Qualifiers: Pneumonia type: aspiration pneumonia
--- NOTE | 2018-09-24 10:17 | PN ---
Progress Note (short form) - Note Progress Note: PULMONARY Still with some hemoptysis but much less. No shortness of breath. No fevers recorded. Vital Signs Period Temp Pulse Resp BP Sys/Leblanc Pulse Ox Last 24 Hr 97.5 F-98.2 F 75-80 20-20 101-142/54-86 96 Gen: NAD at rest Heart: RRR Lung: decreased breath sounds at the bases Abd: soft, nontender Ext: no edema CBC, BMP 09/22/18 07:46 09/22/18 07:46 Active Medications Acetaminophen (Tylenol -) 650 mg PO Q6H PRN PRN Reason: PAIN LEVEL 6-10 Albuterol Sulfate (Ventolin 0.083% Nebulizer Soln -) 1 amp NEB PRN PRN PRN Reason: Dyspnea Albuterol/Ipratropium (Duoneb -) 1 amp NEB Q4H PRN PRN Reason: SHORTNESS OF BREATH Amlodipine Besylate (Norvasc -) 5 mg PEG DAILY [facility] Last Admin: 09/23/18 11:32 Dose: Not Given Fluticasone Propionate (Flonase -) 2 spray NS DAILY PRN PRN Reason: NASAL CONGESTION Gabapentin (Neurontin Oral Liquid -) 100 mg GT TID [facility] Last Admin: 09/24/18 06:08 Dose: 100 mg Vancomycin HCl (Vancomycin (Pre-Docked)) 1,000 mg in 250 mls @ 166.667 mls/hr IVPB BID@0000,1200 [facility]; Protocol Last Admin: 09/23/18 23:15 Dose: 166.667 mls/hr Cefepime HCl 1 gm/ Dextrose 100 mls @ 200 mls/hr IVPB Q8H-IV [facility]; Protocol Last Admin: 09/24/18 01:41 Dose: 200 mls/hr Levothyroxine Sodium (Synthroid -) 125 mcg PEG AM [facility] Last Admin: 09/24/18 06:08 Dose: 125 mcg Lidocaine (Lidoderm Patch -) 1 patch TP DAILY [facility] Last Admin: 09/23/18 10:06 Dose: 1 patch Miscellaneous (Lidoderm Patch Removal) 1 each MC DAILY@2200 [facility] Last Admin: 09/23/18 22:07 Dose: 1 each Ranitidine HCl (Zantac Oral Solution -) 150 mg PEG BID [facility] Last Admin: 09/23/18 22:07 Dose: 150 mg Rosuvastatin Calcium (Crestor -) 10 mg PO HS [facility] A/P Pneumonia likely Aspiration Hemoptysis COPD Bronchiectasis h/o Pharyngeal Ca s/p RT s/p PEG DM Hyperlipidemia HTN - continue antibiotics - f/u cultures - monitor hemoptysis - inhaled bronchodilators - O2 to keep SpO2 >90% - DVT prophylaxis
[2018-09-24] MEDS: LIDOCAINE 5% TOPICAL PATCH TP SCH (10:45)
--- NOTE | 2018-09-24 11:19 | PN ---
Progress Note, Physician History of Present Illness: AWAKE, ALERT SEATED IN BED REPORTS EPISODE OF HEMOPTYSIS NO C/O CHEST PAIN/ DYSPNEA AFEBRILE - Current Medication List Current Medications: Active Medications Acetaminophen (Tylenol -) 650 mg PO Q6H PRN PRN Reason: PAIN LEVEL 6-10 Albuterol Sulfate (Ventolin 0.083% Nebulizer Soln -) 1 amp NEB PRN PRN PRN Reason: Dyspnea Albuterol/Ipratropium (Duoneb -) 1 amp NEB Q4H PRN PRN Reason: SHORTNESS OF BREATH Amlodipine Besylate (Norvasc -) 5 mg PEG DAILY [facility] Last Admin: 09/23/18 11:32 Dose: Not Given Fluticasone Propionate (Flonase -) 2 spray NS DAILY PRN PRN Reason: NASAL CONGESTION Gabapentin (Neurontin Oral Liquid -) 100 mg GT TID [facility] Last Admin: 09/24/18 06:08 Dose: 100 mg Vancomycin HCl (Vancomycin (Pre-Docked)) 1,000 mg in 250 mls @ 166.667 mls/hr IVPB BID@0000,1200 [facility]; Protocol Last Admin: 09/23/18 23:15 Dose: 166.667 mls/hr Cefepime HCl 1 gm/ Dextrose 100 mls @ 200 mls/hr IVPB Q8H-IV [facility]; Protocol Last Admin: 09/24/18 01:41 Dose: 200 mls/hr Levothyroxine Sodium (Synthroid -) 125 mcg PEG AM [facility] Last Admin: 09/24/18 06:08 Dose: 125 mcg Lidocaine (Lidoderm Patch -) 1 patch TP DAILY [facility] Last Admin: 09/23/18 10:06 Dose: 1 patch Miscellaneous (Lidoderm Patch Removal) 1 each MC DAILY@2200 [facility] Last Admin: 09/23/18 22:07 Dose: 1 each Ranitidine HCl (Zantac Oral Solution -) 150 mg PEG BID [facility] Last Admin: 09/23/18 22:07 Dose: 150 mg Rosuvastatin Calcium (Crestor -) 10 mg PO HS [facility] - Objective Vital Signs: Vital Signs Temperature 97.7 F 09/24/18 10:00 Pulse Rate 67 09/24/18 10:00 Respiratory Rate 20 09/24/18 10:00 Blood Pressure 130/80 09/24/18 10:00 O2 Sat by Pulse Oximetry (%) 96 09/23/18 21:00 Constitutional: Yes: No Distress Eyes: Yes: Conjunctiva Clear Cardiovascular: Yes: Regular Rate and Rhythm, S1, S2 Respiratory: Yes: Rhonchi Gastrointestinal: Yes: Normal Bowel Sounds, Soft. 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
[2018-09-24] MEDS: VANCOMYCIN 1 GRAM (PRE-DOCKED) 1,000 MG/250 ML BAG IVPB SCH (12:50)
[2018-09-24] MEDS: amLODIPine BESYLATE 5 MG TABLET (FP) PEG SCH (13:03)
[2018-09-24] MEDS: RANITIDINE HCL 150 MG/10 ML UNIT-DOSE PEG SCH ×2 (13:03→22:12)
[2018-09-24] MEDS ORDERED: PT OWN MED DRAWER 7, Y5N ONE ×2 (14:45→22:02)
[2018-09-24] MEDS: LIDOCAINE PATCH REMOVAL MC SCH (22:13)
[2018-09-25] MEDS: VANCOMYCIN 1 GRAM (PRE-DOCKED) 1,000 MG/250 ML BAG IVPB SCH ×3 (00:30→23:49)
[2018-09-25] MEDS ORDERED: CEFEPIME HCL 1 GM VIAL (RESTRICTED TO ID) ONE ×4 (00:48→23:28)
[2018-09-25] MEDS ORDERED: DEXTROSE 5%-WATER 100 ML IVPB ONE ×4 (00:48→23:29)
[2018-09-25] MEDS: CEFEPIME 1 GM in DEXTROSE 5%-WATER 100 ML IVPB SCH ×3 (01:08→17:04)
[2018-09-25 04:08] LABS: SERUM IRON SATURATION 13 % (15-55); TOTAL IRON BINDING CAPACITY 254 ug/dL (250-450)
[2018-09-25] MEDS: GABAPENTIN 250 MG/5 ML ORAL SOLUTION, 470 ML BOTTLE GT SCH ×3 (06:14→21:22)
[2018-09-25] MEDS: LEVOTHYROXINE NA 125 MCG TABLET (FP) PEG SCH (06:14)
[2018-09-25] MEDS: amLODIPine BESYLATE 5 MG TABLET (FP) PEG SCH (09:02)
[2018-09-25] MEDS: RANITIDINE HCL 150 MG/10 ML UNIT-DOSE PEG SCH ×2 (09:02→21:22)
[2018-09-25] MEDS: LIDOCAINE 5% TOPICAL PATCH TP SCH (09:02)
[2018-09-25] MEDS ORDERED: PT OWN MED DRAWER 7, Y5N ONE ×3 (13:37→21:20)
--- NOTE | 2018-09-25 15:11 | PN ---
Progress Note, Physician Chief Complaint: Hemoptysis Pneumonia History of Present Illness: Previous notes and events reviewed awake and alert NAD denies hemoptysis denies chest pain or SOB - Current Medication List Current Medications: Active Medications Acetaminophen (Tylenol -) 650 mg PO Q6H PRN PRN Reason: PAIN LEVEL 6-10 Albuterol Sulfate (Ventolin 0.083% Nebulizer Soln -) 1 amp NEB PRN PRN PRN Reason: Dyspnea Albuterol/Ipratropium (Duoneb -) 1 amp NEB Q4H PRN PRN Reason: SHORTNESS OF BREATH Amlodipine Besylate (Norvasc -) 5 mg PEG DAILY [facility] Last Admin: 09/25/18 09:02 Dose: Not Given Fluticasone Propionate (Flonase -) 2 spray NS DAILY PRN PRN Reason: NASAL CONGESTION Gabapentin (Neurontin Oral Liquid -) 100 mg GT TID [facility] Last Admin: 09/25/18 13:27 Dose: 100 mg Vancomycin HCl (Vancomycin (Pre-Docked)) 1,000 mg in 250 mls @ 166.667 mls/hr IVPB BID@0000,1200 [facility]; Protocol Last Admin: 09/25/18 11:06 Dose: 166.667 mls/hr Cefepime HCl 1 gm/ Dextrose 100 mls @ 200 mls/hr IVPB Q8H-IV [facility]; Protocol Last Admin: 09/25/18 09:01 Dose: 200 mls/hr Levothyroxine Sodium (Synthroid -) 125 mcg PEG AM [facility] Last Admin: 09/25/18 06:14 Dose: 125 mcg Lidocaine (Lidoderm Patch -) 1 patch TP DAILY [facility] Last Admin: 09/25/18 09:02 Dose: 1 patch Miscellaneous (Lidoderm Patch Removal) 1 each MC DAILY@2200 [facility] Last Admin: 09/24/18 22:13 Dose: 1 each Ranitidine HCl (Zantac Oral Solution -) 150 mg PEG BID [facility] Last Admin: 09/25/18 09:02 Dose: 150 mg Rosuvastatin Calcium (Crestor -) 10 mg PO HS [facility] - Objective Vital Signs: Vital Signs Temperature 97.7 F 09/25/18 13:43 Pulse Rate 74 09/25/18 13:43 Respiratory Rate 20 09/25/18 13:43 Blood Pressure 148/100 09/25/18 13:43 O2 Sat by Pulse Oximetry (%) 98 09/25/18 09:00 Constitutional: Yes: No Distress, Calm Eyes: Yes: Conjunctiva Clear HENT: Yes: Atraumatic Cardiovascular: Yes: Regular Rate and Rhythm Respiratory: Yes: Regular, On Nasal O2, Rhonchi Gastrointestinal: Yes: Normal Bowel Sounds, Soft, Other (G tube) Musculoskeletal: Yes: WNL Extremities: Yes: WNL Edema: No Neurological: Yes: Alert, Oriented Psychiatric: Yes: Alert, Oriented Labs: CBC, BMP 09/22/18 07:46 09/22/18 07:46 INR, PTT INR 1.08 (0.83-1.09) 09/21/18 15:57 Microbiology 09/22/18 10:55 Blood - Peripheral Venous Blood Culture - Preliminary NO GROWTH OBTAINED AFTER 72 HOURS, INCUBATION TO CONTINUE FOR 2 DAYS. 09/22/18 10:47 Blood - Peripheral Venous Blood Culture - Preliminary NO GROWTH OBTAINED AFTER 72 HOURS, INCUBATION TO CONTINUE FOR 2 DAYS. 09/23/18 17:00 Sputum - Expectorated Gram Stain - Final Problem List - Problems (1) Hemoptysis Assessment/Plan: -Pulm on board -Chest CT shows B/L lower lobe patchy alveolar opacities could in part include hemorrhage, -f/u chest CT in 4-6 weeks -if hemoptysis persist will need bronchoscopy Code(s): R04.2 - HEMOPTYSIS (2) Aspiration pneumonia Assessment/Plan: -Pulm and ID on board -No leukocytosis -afebrile -Chest CT scan shows B/L lower lobe patchy alveolar opacities, small B/L upper and mid lung field opacities which may be persistent and/or recurrent in nature , probable minimal to mild bibasilar bronchiectasis , no pleural effusion -Cefepime and Vanco Code(s): J69.0 - PNEUMONITIS DUE TO INHALATION OF FOOD AND VOMIT Qualifiers: Aspiration pneumonia type: unspecified Laterality: right Lung location: unspecified part of lung Qualified Code(s): J69.0 - Pneumonitis due to inhalation of food and vomit (3) CAD (coronary artery disease) Assessment/Plan: -Crestor Code(s): I25.10 - ATHSCL HEART DISEASE OF [place] CORONARY ARTERY W/O ANG PCTRS Qualifiers: Coronary Disease-Associated Artery/Lesion type: [place] artery [place] vs. transplanted heart: [place] heart Associated angina: without angina Qualified Code(s): I25.10 - Atherosclerotic heart disease of [place] coronary artery without angina pectoris (4) HLD (hyperlipidemia) Assessment/Plan: -Crestor Code(s): E78.5 - HYPERLIPIDEMIA, UNSPECIFIED Qualifiers: Hyperlipidemia type: pure hypercholesterolemia Qualified Code(s): E78.00 - Pure hypercholesterolemia, unspecified; E78.0 - Pure hypercholesterolemia (5) HTN (hypertension) Assessment/Plan: -Norvasc -low Na diet Code(s): I10 - ESSENTIAL (PRIMARY) HYPERTENSION Qualifiers: Hypertension type: essential hypertension Qualified Code(s): I10 - Essential (primary) hypertension (6) History of throat cancer Code(s): Z85.819 - PRSNL HX OF MALIG NEOPLM OF UNSP SITE LIP,ORAL CAV,& PHARYNX (7) Hypothyroid Assessment/Plan: -Levothyroxine Code(s): E03.9 - HYPOTHYROIDISM, UNSPECIFIED Qualifiers: Hypothyroidism type: unspecified Qualified Code(s): E03.9 - Hypothyroidism , unspecified Assessment/Plan see problem list SCDs
--- NOTE | 2018-09-25 15:39 | PN ---
Progress Note, Physician History of Present Illness: pulmonary alert,much improved,-sob,less cough,trace blood tinged sputum - Current Medication List Current Medications: Active Medications Acetaminophen (Tylenol -) 650 mg PO Q6H PRN PRN Reason: PAIN LEVEL 6-10 Albuterol Sulfate (Ventolin 0.083% Nebulizer Soln -) 1 amp NEB PRN PRN PRN Reason: Dyspnea Albuterol/Ipratropium (Duoneb -) 1 amp NEB Q4H PRN PRN Reason: SHORTNESS OF BREATH Amlodipine Besylate (Norvasc -) 5 mg PEG DAILY [facility] Last Admin: 09/25/18 09:02 Dose: Not Given Fluticasone Propionate (Flonase -) 2 spray NS DAILY PRN PRN Reason: NASAL CONGESTION Gabapentin (Neurontin Oral Liquid -) 100 mg GT TID [facility] Last Admin: 09/25/18 13:27 Dose: 100 mg Vancomycin HCl (Vancomycin (Pre-Docked)) 1,000 mg in 250 mls @ 166.667 mls/hr IVPB BID@0000,1200 [facility]; Protocol Last Admin: 09/25/18 11:06 Dose: 166.667 mls/hr Cefepime HCl 1 gm/ Dextrose 100 mls @ 200 mls/hr IVPB Q8H-IV [facility]; Protocol Last Admin: 09/25/18 09:01 Dose: 200 mls/hr Levothyroxine Sodium (Synthroid -) 125 mcg PEG AM [facility] Last Admin: 09/25/18 06:14 Dose: 125 mcg Lidocaine (Lidoderm Patch -) 1 patch TP DAILY [facility] Last Admin: 09/25/18 09:02 Dose: 1 patch Miscellaneous (Lidoderm Patch Removal) 1 each MC DAILY@2200 [facility] Last Admin: 09/24/18 22:13 Dose: 1 each Ranitidine HCl (Zantac Oral Solution -) 150 mg PEG BID [facility] Last Admin: 09/25/18 09:02 Dose: 150 mg Rosuvastatin Calcium (Crestor -) 10 mg PO HS [facility] - Objective Vital Signs: Vital Signs Temperature 97.7 F 09/25/18 13:43 Pulse Rate 74 09/25/18 13:43 Respiratory Rate 20 09/25/18 13:43 Blood Pressure 148/100 09/25/18 13:43 O2 Sat by Pulse Oximetry (%) 98 09/25/18 09:00 Constitutional: Yes: Well Nourished, Calm Eyes: Yes: WNL HENT: Yes: WNL Neck: Yes: WNL Cardiovascular: Yes: Regular Rate and Rhythm, S1, S2 Respiratory: Yes: Rales (bilateral cracckle1/3 up) Gastrointestinal: Yes: Normal Bowel Sounds, Soft Extremities: Yes: WNL Edema: No Labs: CBC, BMP Problem List - Problems (1) Hemoptysis Code(s): R04.2 - HEMOPTYSIS (2) Aspiration into respiratory tract Code(s): T17.908A - UNSP FB IN RESP TRACT, PART UNSP CAUSING OTH INJURY, INIT Qualifiers: Encounter type: initial encounter Qualified Code(s): T17.908A - Unspecified foreign body in respiratory tract, part unspecified causing other injury, initial encounter (3) Aspiration pneumonia Code(s): J69.0 - PNEUMONITIS DUE TO INHALATION OF FOOD AND VOMIT Qualifiers: Aspiration pneumonia type: unspecified Laterality: right Lung location: unspecified part of lung Qualified Code(s): J69.0 - Pneumonitis due to inhalation of food and vomit (4) Autonomic postural hypotension Code(s): I95.1 - ORTHOSTATIC HYPOTENSION (5) Benign prostatic hypertrophy Code(s): N40.0 - BENIGN PROSTATIC HYPERPLASIA WITHOUT LOWER URINRY TRACT SYMP (6) CAD (coronary artery disease) Code(s): I25.10 - ATHSCL HEART DISEASE OF [place] CORONARY ARTERY W/O ANG PCTRS Qualifiers: Coronary Disease-Associated Artery/Lesion type: [place] artery [place] vs. transplanted heart: [place] heart Associated angina: without angina Qualified Code(s): I25.10 - Atherosclerotic heart disease of [place] coronary artery without angina pectoris (7) HLD (hyperlipidemia) Code(s): E78.5 - HYPERLIPIDEMIA, UNSPECIFIED Qualifiers: Hyperlipidemia type: pure hypercholesterolemia Qualified Code(s): E78.00 - Pure hypercholesterolemia, unspecified; E78.0 - Pure hypercholesterolemia (8) HTN (hypertension) Code(s): I10 - ESSENTIAL (PRIMARY) HYPERTENSION Qualifiers: Hypertension type: essential hypertension Qualified Code(s): I10 - Essential (primary) hypertension (9) History of throat cancer Code(s): Z85.819 - PRSNL HX OF MALIG NEOPLM OF UNSP SITE LIP,ORAL CAV,& PHARYNX Assessment/Plan IMP BILATERAL PNEUMONIA LIKELY ASPIRATION HEMOPTYSIS SECONDARY TO PNEUMONIA IMPROVED COPD H/O ORAL PHARYNGEAL CA S/P RT H/O ASPIRATION S/P GT AUTONOMIC DYSFUNCTION DM BPH PLAN ABX PER ID O2 INHALED BRONCHODILATORS F/U CHEST X-RAY F/U CHEST CT IN 4-6 WKS TO CONFIRM RESOLUTION OF INFILTRATES DR UMANA Problem List - Problems (1) Hemoptysis Code(s): R04.2 - HEMOPTYSIS (2) Aspiration into respiratory tract Code(s): T17.908A - UNSP FB IN RESP TRACT, PART UNSP CAUSING OTH INJURY, INIT Qualifiers: Encounter type: initial encounter Qualified Code(s): T17.908A - Unspecified foreign body in respiratory tract, part unspecified causing other injury, initial encounter (3) Aspiration pneumonia Code(s): J69.0 - PNEUMONITIS DUE TO INHALATION OF FOOD AND VOMIT Qualifiers: Aspiration pneumonia type: unspecified Laterality: right Lung location: unspecified part of lung Qualified Code(s): J69.0 - Pneumonitis due to inhalation of food and vomit (4) Autonomic postural hypotension Code(s): I95.1 - ORTHOSTATIC HYPOTENSION (5) Benign prostatic hypertrophy Code(s): N40.0 - BENIGN PROSTATIC HYPERPLASIA WITHOUT LOWER URINRY TRACT SYMP (6) CAD (coronary artery disease) Code(s): I25.10 - ATHSCL HEART DISEASE OF [place] CORONARY ARTERY W/O ANG PCTRS Qualifiers: Coronary Disease-Associated Artery/Lesion type: [place] artery [place] vs. transplanted heart: [place] heart Associated angina: without angina Qualified Code(s): I25.10 - Atherosclerotic heart disease of [place] coronary artery without angina pectoris (7) HLD (hyperlipidemia) Code(s): E78.5 - HYPERLIPIDEMIA, UNSPECIFIED Qualifiers: Hyperlipidemia type: pure hypercholesterolemia Qualified Code(s): E78.00 - Pure hypercholesterolemia, unspecified; E78.0 - Pure hypercholesterolemia (8) HTN (hypertension) Code(s): I10 - ESSENTIAL (PRIMARY) HYPERTENSION Qualifiers: Hypertension type: essential hypertension Qualified Code(s): I10 - Essential (primary) hypertension (9) History of throat cancer Code(s): Z85.819 - PRSNL HX OF MALIG NEOPLM OF UNSP SITE LIP,ORAL CAV,& PHARYNX
[2018-09-25] MEDS: LIDOCAINE PATCH REMOVAL MC SCH (21:22)
[2018-09-26] MEDS: CEFEPIME 1 GM in DEXTROSE 5%-WATER 100 ML IVPB SCH ×3 (01:25→17:01)
[2018-09-26] MEDS ORDERED: PT OWN MED DRAWER 7, Y5N ONE (01:44)
[2018-09-26] MEDS: LEVOTHYROXINE NA 125 MCG TABLET (FP) PEG SCH (06:04)
[2018-09-26] MEDS: GABAPENTIN 250 MG/5 ML ORAL SOLUTION, 470 ML BOTTLE GT SCH ×3 (06:04→22:21)
[2018-09-26] MEDS ORDERED: CEFEPIME HCL 1 GM VIAL (RESTRICTED TO ID) ONE ×2 (08:44→16:33)
[2018-09-26] MEDS ORDERED: DEXTROSE 5%-WATER 100 ML IVPB ONE ×2 (08:44→16:33)
[2018-09-26] MEDS: LIDOCAINE 5% TOPICAL PATCH TP SCH (09:01)
[2018-09-26] MEDS: RANITIDINE HCL 150 MG/10 ML UNIT-DOSE PEG SCH ×2 (09:02→22:21)
[2018-09-26] MEDS: amLODIPine BESYLATE 5 MG TABLET (FP) PEG SCH (09:02)
--- NOTE | 2018-09-26 10:00 | PN ---
Progress Note, Physician Chief Complaint: AWAKE ALERT FEELS TIRED NO CP OR SOB - Current Medication List Current Medications: Active Medications Acetaminophen (Tylenol -) 650 mg PO Q6H PRN PRN Reason: PAIN LEVEL 6-10 Albuterol Sulfate (Ventolin 0.083% Nebulizer Soln -) 1 amp NEB PRN PRN PRN Reason: Dyspnea Albuterol/Ipratropium (Duoneb -) 1 amp NEB Q4H PRN PRN Reason: SHORTNESS OF BREATH Amlodipine Besylate (Norvasc -) 5 mg PEG DAILY [facility] Last Admin: 09/26/18 09:02 Dose: Not Given Diphenhydramine HCl (Benadryl Injection -) 12.5 mg IVPUSH Q4H PRN PRN Reason: FOR ITCHING Fluticasone Propionate (Flonase -) 2 spray NS DAILY PRN PRN Reason: NASAL CONGESTION Gabapentin (Neurontin Oral Liquid -) 100 mg GT TID [facility] Last Admin: 09/26/18 06:04 Dose: 100 mg Vancomycin HCl (Vancomycin (Pre-Docked)) 1,000 mg in 250 mls @ 166.667 mls/hr IVPB BID@0000,1200 [facility]; Protocol Last Admin: 09/25/18 23:49 Dose: 166.667 mls/hr Cefepime HCl 1 gm/ Dextrose 100 mls @ 200 mls/hr IVPB Q8H-IV [facility]; Protocol Last Admin: 09/26/18 09:02 Dose: 200 mls/hr [place] Sucrose 300 mg/ Sodium (Chloride) 250 mls @ 166.667 mls/hr IVPB ONCE ONE Stop: 09/26/18 12:29 Levothyroxine Sodium (Synthroid -) 125 mcg PEG AM [facility] [place] Last Admin: 09/26/18 06:04 Dose: 125 mcg Lidocaine (Lidoderm Patch -) 1 patch TP DAILY [facility] [place] Last Admin: 09/26/18 09:01 Dose: 1 patch Miscellaneous (Lidoderm Patch Removal) 1 each MC DAILY@2200 [facility] [place] Last Admin: 09/25/18 21:22 Dose: 1 each Ranitidine HCl (Zantac Oral Solution -) 150 mg PEG BID [facility] [place] Last Admin: 09/26/18 09:02 Dose: 150 mg Rosuvastatin Calcium (Crestor -) 10 mg PO [facility] - Objective Vital Signs: Vital Signs Temperature 97.6 F 07/20/19 09:57 Pulse Rate 72 09/26/18 09:57 Respiratory Rate 18 09/26/18 09:57 Blood Pressure 117/63 09/26/18 09:57 O2 Sat by Pulse Oximetry (%) 97 09/26/18 09:00 Constitutional: Yes: Mild Distress Eyes: Yes: WNL HENT: Yes: WNL Neck: Yes: WNL Cardiovascular: Yes: Regular Rate and Rhythm Respiratory: Yes: Diminished Gastrointestinal: Yes: Soft, Other (GTUBE) Genitourinary: Yes: WNL Musculoskeletal: Yes: Muscle Weakness Extremities: Yes: WNL Edema: No Peripheral Pulses WNL: Yes Integumentary: Yes: WNL Wound/Incision: Yes: Clean/Dry Neurological: Yes: Pre-Existing Deficit ...Motor Strength: LLE, RLE Psychiatric: Yes: Other Labs: CBC, BMP 09/22/18 07:46 09/22/18 07:46 INR, PTT INR 1.08 (0.83-1.09) 09/21/18 15:57 Problem List - Problems (1) Lumbago Code(s): M54.5 - LOW BACK PAIN (2) Aspiration into respiratory tract Code(s): T17.908A - UNSP FB IN RESP TRACT, PART UNSP CAUSING OTH INJURY, INIT Qualifiers: Encounter type: initial encounter Qualified Code(s): T17.908A - Unspecified foreign body in respiratory tract, part unspecified causing other injury, initial encounter (3) Aspiration pneumonia Code(s): J69.0 - PNEUMONITIS DUE TO INHALATION OF FOOD AND VOMIT Qualifiers: Aspiration pneumonia type: unspecified Laterality: right Lung location: unspecified part of lung Qualified Code(s): J69.0 - Pneumonitis due to inhalation of food and vomit (4) Benign prostatic hypertrophy Code(s): N40.0 - BENIGN PROSTATIC HYPERPLASIA WITHOUT LOWER URINRY TRACT SYMP (5) CAD (coronary artery disease) Code(s): I25.10 - ATHSCL HEART DISEASE OF [place] CORONARY ARTERY W/O ANG PCTRS Qualifiers: Coronary Disease-Associated Artery/Lesion type: [place] artery [place] vs. transplanted heart: [place] heart Associated angina: without angina Qualified Code(s): I25.10 - Atherosclerotic heart disease of [place] coronary artery without angina pectoris (6) Carotid stenosis Code(s): I65.29 - OCCLUSION AND STENOSIS OF UNSPECIFIED CAROTID ARTERY (7) Dizziness Code(s): R42 - DIZZINESS AND GIDDINESS (8) Dysautonomia orthostatic hypotension syndrome Code(s): G90.3 - MULTI-SYSTEM DEGENERATION OF THE AUTONOMIC NERVOUS SYSTEM (9) HLD (hyperlipidemia) Code(s): E78.5 - HYPERLIPIDEMIA, UNSPECIFIED Qualifiers: Hyperlipidemia type: pure hypercholesterolemia Qualified Code(s): E78.00 - Pure hypercholesterolemia, unspecified; E78.0 - Pure hypercholesterolemia (10) HTN (hypertension) Code(s): I10 - ESSENTIAL (PRIMARY) HYPERTENSION Qualifiers: Hypertension type: essential hypertension Qualified Code(s): I10 - Essential (primary) hypertension (11) History of throat cancer Code(s): Z85.819 - PRSNL HX OF MALIG NEOPLM OF UNSP SITE LIP,ORAL CAV,& PHARYNX Assessment/Plan IV ABX PER ID PULMONARY EVAL CHANGED FEEDS TO BOLUS TID NEBS LIDODERM PATCH TO BACK DVT PROPHYLAXIS PT EVAL ADDED VENOFER IV WITH BENADRYL PRN FOR ANY POSSIBLE REACTION WILL NEED 3 DOSES OF 300MG
[2018-09-26] MEDS ORDERED: IRON SUCROSE INJECTION 300 MG in SODIUM CHLORIDE 235 ML IVPB ONE (11:00)
[2018-09-26] MEDS: VANCOMYCIN 1 GRAM (PRE-DOCKED) 1,000 MG/250 ML BAG IVPB SCH (11:27)
--- NOTE | 2018-09-26 12:04 | PN ---
Progress Note (short form) - Note Progress Note: Feels overall better. Less SOB and resolved hemoptysis. No acute events overnight. Intake & Output 09/23/18 09/24/18 09/25/18 09/26/18 23:59 23:59 23:59 23:59 Intake Total 460 1400 850 Output Total 600 Balance 460 800 850 Weight 190 lb Last Vital Signs Temp Pulse Resp BP Pulse Ox 97.6 F 72 18 117/63 97 09/26/18 09:57 09/26/18 09:57 09/26/18 09:57 09/26/18 09:57 09/26/18 09:00 Active Medications Acetaminophen (Tylenol -) 650 mg PO Q6H PRN PRN Reason: PAIN LEVEL 6-10 Albuterol Sulfate (Ventolin 0.083% Nebulizer Soln -) 1 amp NEB PRN PRN PRN Reason: Dyspnea Albuterol/Ipratropium (Duoneb -) 1 amp NEB Q4H PRN PRN Reason: SHORTNESS OF BREATH Amlodipine Besylate (Norvasc -) 5 mg PEG DAILY [facility] Last Admin: 09/26/18 09:02 Dose: Not Given Diphenhydramine HCl (Benadryl Injection -) 12.5 mg IVPUSH Q4H PRN PRN Reason: FOR ITCHING Last Admin: 09/26/18 11:27 Dose: 12.5 mg Fluticasone Propionate (Flonase -) 2 spray NS DAILY PRN PRN Reason: NASAL CONGESTION Gabapentin (Neurontin Oral Liquid -) 100 mg GT TID [facility] Last Admin: 09/26/18 06:04 Dose: 100 mg Vancomycin HCl (Vancomycin (Pre-Docked)) 1,000 mg in 250 mls @ 166.667 mls/hr IVPB BID@0000,1200 [facility]; Protocol Last Admin: 09/26/18 11:27 Dose: 166.667 mls/hr Cefepime HCl 1 gm/ Dextrose 100 mls @ 200 mls/hr IVPB Q8H-IV [facility]; Protocol Last Admin: 09/26/18 09:02 Dose: 200 mls/hr Iron Sucrose 300 mg/ Sodium (Chloride) 250 mls @ 166.667 mls/hr IVPB ONCE ONE Stop: 09/26/18 12:29 Last Admin: 09/26/18 11:27 Dose: 166.667 mls/hr Levothyroxine Sodium (Synthroid -) 125 mcg PEG AM [facility] Last Admin: 09/26/18 06:04 Dose: 125 mcg Lidocaine (Lidoderm Patch -) 1 patch TP DAILY [facility] Last Admin: 09/26/18 09:01 Dose: 1 patch Miscellaneous (Lidoderm Patch Removal) 1 each MC DAILY@2200 [facility] Last Admin: 09/25/18 21:22 Dose: 1 each Ranitidine HCl (Zantac Oral Solution -) 150 mg PEG BID [facility] Last Admin: 09/26/18 09:02 Dose: 150 mg Rosuvastatin Calcium (Crestor -) 10 mg PO HS [facility] Constitutional: Yes: Well Nourished, Calm Eyes: Yes: WNL HENT: Yes: WNL Neck: Yes: WNL Cardiovascular: Yes: Regular Rate and Rhythm, S1, S2 Respiratory: Yes: Bilateral Rhonchi Gastrointestinal: Yes: Normal Bowel Sounds, Soft Extremities: Yes: WNL Edema: No Labs: Problem List - Problems (1) Hemoptysis Code(s): R04.2 - HEMOPTYSIS (2) Aspiration into respiratory tract Code(s): T17.908A - UNSP FB IN RESP TRACT, PART UNSP CAUSING OTH INJURY, INIT Qualifiers: Encounter type: initial encounter Qualified Code(s): T17.908A - Unspecified foreign body in respiratory tract, part unspecified causing other injury, initial encounter (3) Aspiration pneumonia Code(s): J69.0 - PNEUMONITIS DUE TO INHALATION OF FOOD AND VOMIT Qualifiers: Aspiration pneumonia type: unspecified Laterality: right Lung location: unspecified part of lung Qualified Code(s): J69.0 - Pneumonitis due to inhalation of food and vomit (4) Autonomic postural hypotension Code(s): I95.1 - ORTHOSTATIC HYPOTENSION (5) Benign prostatic hypertrophy Code(s): N40.0 - BENIGN PROSTATIC HYPERPLASIA WITHOUT LOWER URINRY TRACT SYMP (6) CAD (coronary artery disease) Code(s): I25.10 - ATHSCL HEART DISEASE OF [place] CORONARY ARTERY W/O ANG PCTRS Qualifiers: Coronary Disease-Associated Artery/Lesion type: [place] artery [place] vs. transplanted heart: [place] heart Associated angina: without angina Qualified Code(s): I25.10 - Atherosclerotic heart disease of [place] coronary artery without angina pectoris (7) HLD (hyperlipidemia) Code(s): E78.5 - HYPERLIPIDEMIA, UNSPECIFIED Qualifiers: Hyperlipidemia type: pure hypercholesterolemia Qualified Code(s): E78.00 - Pure hypercholesterolemia, unspecified; E78.0 - Pure hypercholesterolemia (8) HTN (hypertension) Code(s): I10 - ESSENTIAL (PRIMARY) HYPERTENSION Qualifiers: Hypertension type: essential hypertension Qualified Code(s): I10 - Essential (primary) hypertension (9) History of throat cancer Code(s): Z85.819 - PRSNL HX OF MALIG NEOPLM OF UNSP SITE LIP,ORAL CAV,& PHARYNX Assessment/Plan IMP BILATERAL PNEUMONIA LIKELY ASPIRATION HEMOPTYSIS SECONDARY TO PNEUMONIA IMPROVED COPD H/O ORAL PHARYNGEAL CA S/P RT H/O ASPIRATION S/P GT AUTONOMIC DYSFUNCTION DM BPH PLAN ABX PER ID O2 INHALED BRONCHODILATORS F/U CHEST CT IN 6 WKS TO CONFIRM RESOLUTION OF INFILTRATES Dr Powell
[2018-09-26] MEDS: ACETAMINOPHEN 325 MG TABLET (FP) PO PRN ×2 (17:05→22:28)
[2018-09-26] MEDS: LIDOCAINE PATCH REMOVAL MC SCH (22:21)
[2018-09-27] MEDS ORDERED: DEXTROSE 5%-WATER 100 ML IVPB ONE ×3 (01:53→17:28)
[2018-09-27] MEDS ORDERED: CEFEPIME HCL 1 GM VIAL (RESTRICTED TO ID) ONE ×3 (01:53→17:27)
[2018-09-27] MEDS: VANCOMYCIN 1 GRAM (PRE-DOCKED) 1,000 MG/250 ML BAG IVPB SCH ×2 (01:57→12:26)
[2018-09-27] MEDS: CEFEPIME 1 GM in DEXTROSE 5%-WATER 100 ML IVPB SCH ×3 (01:59→17:35)
[2018-09-27] MEDS: LEVOTHYROXINE NA 125 MCG TABLET (FP) PEG SCH (05:59)
[2018-09-27] MEDS: GABAPENTIN 250 MG/5 ML ORAL SOLUTION, 470 ML BOTTLE GT SCH ×3 (05:59→22:05)
[2018-09-27 07:27] LABS: HEMATOCRIT 32.2 % (35.4-49); HEMOGLOBIN 10.6 GM/dL (11.7-16.9); MCH 29.3 pg (25.7-33.7); MCHC 32.9 g/dl (32.0-35.9); PLATELET COUNT 245 K/MM3 (134-434); RBC 3.61 M/mm3 (4.00-5.60); WHITE BLOOD COUNT 7.8 K/mm3 (4.0-10.0)
--- NOTE | 2018-09-27 07:34 | PN ---
Progress Note, Physician Chief Complaint: AWAKE ALERT NAD UNEVENTFULT NIGHT TOLERATED VENOFER IV NAD - Current Medication List Current Medications: Active Medications Acetaminophen (Tylenol -) 650 mg PO Q6H PRN PRN Reason: PAIN LEVEL 6-10 Last Admin: 09/26/18 22:28 Dose: 650 mg Albuterol Sulfate (Ventolin 0.083% Nebulizer Soln -) 1 amp NEB PRN PRN PRN Reason: Dyspnea Albuterol/Ipratropium (Duoneb -) 1 amp NEB Q4H PRN PRN Reason: SHORTNESS OF BREATH Amlodipine Besylate (Norvasc -) [address] [facility] Last Admin: 09/26/18 09:02 Dose: Not Given Diphenhydramine HCl (Benadryl Injection -) 12.5 mg IVPUSH Q4H PRN PRN Reason: FOR ITCHING Last Admin: 09/26/18 11:27 Dose: 12.5 mg Fluticasone Propionate (Flonase -) 2 spray NS DAILY PRN PRN Reason: NASAL CONGESTION Gabapentin (Neurontin Oral Liquid -) [address] [facility] Last Admin: 09/27/18 05:59 Dose: 100 mg Vancomycin HCl (Vancomycin (Pre-Docked)) 1,000 mg in 250 mls @ 166.667 mls/hr IVPB BID@0000,1200 [facility]; Protocol Last Admin: 09/27/18 01:57 Dose: 166.667 mls/hr Cefepime HCl 1 gm/ Dextrose 100 mls @ 200 mls/hr IVPB Q8H-IV [facility]; Protocol Last Admin: 09/27/18 01:59 Dose: 200 mls/hr Levothyroxine Sodium (Synthroid -) [address] [facility] Last Admin: 09/27/18 05:59 Dose: 125 mcg Lidocaine (Lidoderm Patch -) [address] [facility] Last Admin: 09/26/18 09:01 Dose: 1 patch Miscellaneous (Lidoderm Patch Removal) 1 each MC DAILY@2200 [facility] Last Admin: 09/26/18 22:21 Dose: 1 each Ranitidine HCl (Zantac Oral Solution -) [address] [facility] Last Admin: 09/26/18 22:21 Dose: 150 mg Rosuvastatin Calcium (Crestor -) [address] [facility] - Objective Vital Signs: Vital Signs Temperature 98 F 09/27/18 06:00 Pulse Rate 71 09/27/18 06:00 Respiratory Rate 20 09/27/18 06:00 Blood Pressure 158/91 09/27/18 06:00 O2 Sat by Pulse Oximetry (%) 100 09/26/18 21:00 Constitutional: Yes: No Distress Eyes: Yes: WNL HENT: Yes: WNL Neck: Yes: WNL Cardiovascular: Yes: Regular Rate and Rhythm Respiratory: Yes: Diminished, On Nasal O2, Rales Gastrointestinal: Yes: Normal Bowel Sounds, Other (GTUBE) Genitourinary: Yes: WNL Musculoskeletal: Yes: Muscle Weakness Edema: No Peripheral Pulses WNL: Yes Integumentary: Yes: WNL Wound/Incision: Yes: Clean/Dry Neurological: Yes: WNL ...Motor Strength: WNL Psychiatric: Yes: WNL Labs: INR, PTT INR 1.08 (0.83-1.09) 09/21/18 15:57 Problem List - Problems (1) Lumbago Code(s): M54.5 - LOW BACK PAIN (2) Aspiration into respiratory tract Code(s): T17.908A - UNSP FB IN RESP TRACT, PART UNSP CAUSING OTH INJURY, INIT Qualifiers: Encounter type: initial encounter Qualified Code(s): T17.908A - Unspecified foreign body in respiratory tract, part unspecified causing other injury, initial encounter (3) Aspiration pneumonia Code(s): J69.0 - PNEUMONITIS DUE TO INHALATION OF FOOD AND VOMIT Qualifiers: Aspiration pneumonia type: unspecified Laterality: right Lung location: unspecified part of lung Qualified Code(s): J69.0 - Pneumonitis due to inhalation of food and vomit (4) Benign prostatic hypertrophy Code(s): N40.0 - BENIGN PROSTATIC HYPERPLASIA WITHOUT LOWER URINRY TRACT SYMP (5) CAD (coronary artery disease) Code(s): I25.10 - ATHSCL HEART DISEASE OF [place] CORONARY ARTERY W/O ANG PCTRS Qualifiers: Coronary Disease-Associated Artery/Lesion type: [place] artery [place] vs. transplanted heart: [place] heart Associated angina: without angina Qualified Code(s): I25.10 - Atherosclerotic heart disease of [place] coronary artery without angina pectoris (6) Carotid stenosis Code(s): I65.29 - OCCLUSION AND STENOSIS OF UNSPECIFIED CAROTID ARTERY (7) Dizziness Code(s): R42 - DIZZINESS AND GIDDINESS (8) Dysautonomia orthostatic hypotension syndrome Code(s): G90.3 - MULTI-SYSTEM DEGENERATION OF THE AUTONOMIC NERVOUS SYSTEM (9) HLD (hyperlipidemia) Code(s): E78.5 - HYPERLIPIDEMIA, UNSPECIFIED Qualifiers: Hyperlipidemia type: pure hypercholesterolemia Qualified Code(s): E78.00 - Pure hypercholesterolemia, unspecified; E78.0 - Pure hypercholesterolemia (10) HTN (hypertension) Code(s): I10 - ESSENTIAL (PRIMARY) HYPERTENSION Qualifiers: Hypertension type: essential hypertension Qualified Code(s): I10 - Essential (primary) hypertension (11) History of throat cancer Code(s): Z85.819 - PRSNL HX OF MALIG NEOPLM OF UNSP SITE LIP,ORAL CAV,& PHARYNX Assessment/Plan IV ABX PER ID PULM EVAL APPRECIATED 02 SUPPORT INJECTOFER IV 750MG FOR IRON DEF. OOB TO CHAIR AWAIT CX
[2018-09-27 08:02] LABS: BLOOD UREA NITROGEN 17.8 mg/dL (7-18); CREATININE 0.7 mg/dL (0.55-1.3); POTASSIUM 4.1 mmol/L (3.5-5.1)
[2018-09-27] MEDS ORDERED: FERRIC CARBOXYMALTOSE 750 MG in SODIUM CHLORIDE 250 ML IVPB ONE (09:30)
[2018-09-27] MEDS: RANITIDINE HCL 150 MG/10 ML UNIT-DOSE PEG SCH ×2 (10:26→22:02)
[2018-09-27] MEDS: LIDOCAINE 5% TOPICAL PATCH TP SCH (10:27)
[2018-09-27] MEDS: amLODIPine BESYLATE 5 MG TABLET (FP) PEG SCH (10:32)
--- NOTE | 2018-09-27 11:22 | PN ---
Progress Note (short form) - Note Progress Note: Feels overall better. Less SOB. Minimal hemoptysis mixed with sputum. No acute events overnight. Intake & Output 09/24/18 09/25/18 09/26/18 09/27/18 23:59 23:59 23:59 23:59 Intake Total 1400 850 535 Output Total 600 Balance 800 850 535 Last Vital Signs Temp Pulse Resp BP Pulse Ox 98 F 71 20 158/91 100 09/27/18 06:00 09/27/18 06:00 09/27/18 06:00 09/27/18 06:00 09/26/18 21:00 Active Medications Acetaminophen (Tylenol -) 650 mg PO Q6H PRN PRN Reason: PAIN LEVEL 6-10 Last Admin: 09/26/18 22:28 Dose: 650 mg Albuterol Sulfate (Ventolin 0.083% Nebulizer Soln -) 1 amp NEB PRN PRN PRN Reason: Dyspnea Albuterol/Ipratropium (Duoneb -) 1 amp NEB Q4H PRN PRN Reason: SHORTNESS OF BREATH Amlodipine Besylate (Norvasc -) 5 mg PEG DAILY [facility] Last Admin: 09/27/18 10:32 Dose: Not Given Diphenhydramine HCl (Benadryl Injection -) 12.5 mg IVPUSH Q4H PRN PRN Reason: FOR ITCHING Last Admin: 09/26/18 11:27 Dose: 12.5 mg Fluticasone Propionate (Flonase -) 2 spray NS DAILY PRN PRN Reason: NASAL CONGESTION Gabapentin (Neurontin Oral Liquid -) 100 mg GT TID [facility] Last Admin: 09/27/18 05:59 Dose: 100 mg Vancomycin HCl (Vancomycin (Pre-Docked)) 1,000 mg in 250 mls @ 166.667 mls/hr IVPB BID@0000,1200 [facility]; Protocol Last Admin: 09/27/18 01:57 Dose: 166.667 mls/hr Cefepime HCl 1 gm/ Dextrose 100 mls @ 200 mls/hr IVPB Q8H-IV [facility]; Protocol Last Admin: 09/27/18 10:26 Dose: 200 mls/hr Levothyroxine Sodium (Synthroid -) 125 mcg PEG AM [facility] Last Admin: 09/27/18 05:59 Dose: 125 mcg Lidocaine (Lidoderm Patch -) 1 patch TP DAILY [facility] Last Admin: 09/27/18 10:27 Dose: 1 patch Miscellaneous (Lidoderm Patch Removal) 1 each MC DAILY@2200 [facility] Last Admin: 09/26/18 22:21 Dose: 1 each Ranitidine HCl (Zantac Oral Solution -) 150 mg PEG BID [facility] Last Admin: 09/27/18 10:26 Dose: 150 mg Rosuvastatin Calcium (Crestor -) 10 mg PO [facility] Constitutional: Yes: Well Nourished, Calm Eyes: Yes: WNL HENT: Yes: WNL Neck: Yes: WNL Cardiovascular: Yes: Regular Rate and Rhythm, S1, S2 Respiratory: Yes: Bilateral Rhonchi Gastrointestinal: Yes: Normal Bowel Sounds, Soft Extremities: Yes: WNL Edema: No Labs: Laboratory Results - last 24 hr 09/27/18 09/27/18 06:30 06:30 WBC 7.8 RBC 3.61 L Hgb 10.6 L Hct 32.2 L MCV 89.0 MCH 29.3 MCHC 32.9 RDW 14.0 Plt Count 245 MPV 8.0 Sodium 139 Potassium 4.1 Chloride 99 Carbon Dioxide 37 H Anion Gap 3 L BUN 17.8 Creatinine 0.7 Est GFR (CKD-EPI)AfAm 109.27 Est GFR (CKD-EPI)NonAf 94.28 Random Glucose 144 H Calcium 9.0 Problem List - Problems (1) Hemoptysis Code(s): R04.2 - HEMOPTYSIS (2) Aspiration into respiratory tract Code(s): T17.908A - UNSP FB IN RESP TRACT, PART UNSP CAUSING OTH INJURY, INIT Qualifiers: Encounter type: initial encounter Qualified Code(s): T17.908A - Unspecified foreign body in respiratory tract, part unspecified causing other injury, initial encounter (3) Aspiration pneumonia Code(s): J69.0 - PNEUMONITIS DUE TO INHALATION OF FOOD AND VOMIT Qualifiers: Aspiration pneumonia type: unspecified Laterality: right Lung location: unspecified part of lung Qualified Code(s): J69.0 - Pneumonitis due to inhalation of food and vomit (4) Autonomic postural hypotension Code(s): I95.1 - ORTHOSTATIC HYPOTENSION (5) Benign prostatic hypertrophy Code(s): N40.0 - BENIGN PROSTATIC HYPERPLASIA WITHOUT LOWER URINRY TRACT SYMP (6) CAD (coronary artery disease) Code(s): I25.10 - ATHSCL HEART DISEASE OF [place] CORONARY ARTERY W/O ANG PCTRS Qualifiers: Coronary Disease-Associated Artery/Lesion type: [place] artery [place] vs. transplanted heart: [place] heart Associated angina: without angina Qualified Code(s): I25.10 - Atherosclerotic heart disease of [place] coronary artery without angina pectoris (7) HLD (hyperlipidemia) Code(s): E78.5 - HYPERLIPIDEMIA, UNSPECIFIED Qualifiers: Hyperlipidemia type: pure hypercholesterolemia Qualified Code(s): E78.00 - Pure hypercholesterolemia, unspecified; E78.0 - Pure hypercholesterolemia (8) HTN (hypertension) Code(s): I10 - ESSENTIAL (PRIMARY) HYPERTENSION Qualifiers: Hypertension type: essential hypertension Qualified Code(s): I10 - Essential (primary) hypertension (9) History of throat cancer Code(s): Z85.819 - PRSNL HX OF MALIG NEOPLM OF UNSP SITE LIP,ORAL CAV,& PHARYNX Assessment/Plan IMP BILATERAL PNEUMONIA LIKELY ASPIRATION HEMOPTYSIS SECONDARY TO PNEUMONIA IMPROVED COPD H/O ORAL PHARYNGEAL CA S/P RT H/O ASPIRATION S/P GT AUTONOMIC DYSFUNCTION DM BPH PLAN ABX PER ID O2 INHALED BRONCHODILATORS F/U CHEST CT IN 6 WKS TO CONFIRM RESOLUTION OF INFILTRATES Dr Powell
[2018-09-27] MEDS: LIDOCAINE PATCH REMOVAL MC SCH (22:04)
[2018-09-28] MEDS: VANCOMYCIN 1 GRAM (PRE-DOCKED) 1,000 MG/250 ML BAG IVPB SCH ×2 (00:52→13:35)
[2018-09-28] MEDS ORDERED: CEFEPIME HCL 1 GM VIAL (RESTRICTED TO ID) ONE ×3 (01:48→18:03)
[2018-09-28] MEDS ORDERED: DEXTROSE 5%-WATER 100 ML IVPB ONE ×3 (01:49→18:03)
[2018-09-28] MEDS: CEFEPIME 1 GM in DEXTROSE 5%-WATER 100 ML IVPB SCH ×3 (01:53→18:06)
[2018-09-28] MEDS ORDERED: PT OWN MED DRAWER 7, Y5N ONE ×4 (05:41→21:08)
[2018-09-28] MEDS: LEVOTHYROXINE NA 125 MCG TABLET (FP) PEG SCH (06:35)
[2018-09-28] MEDS: GABAPENTIN 250 MG/5 ML ORAL SOLUTION, 470 ML BOTTLE GT SCH ×3 (06:35→22:06)
--- NOTE | 2018-09-28 07:36 | PN ---
Progress Note, Physician - Current Medication List Current Medications: Active Medications Acetaminophen (Tylenol -) 650 mg PO Q6H PRN PRN Reason: PAIN LEVEL 6-10 Last Admin: 09/26/18 22:28 Dose: 650 mg Albuterol Sulfate (Ventolin 0.083% Nebulizer Soln -) 1 amp NEB PRN PRN PRN Reason: Dyspnea Albuterol/Ipratropium (Duoneb -) 1 amp NEB Q4H PRN PRN Reason: SHORTNESS OF BREATH Amlodipine Besylate (Norvasc -) 5 mg PEG DAILY [facility] Last Admin: 09/27/18 10:32 Dose: Not Given Diphenhydramine HCl (Benadryl Injection -) 12.5 mg IVPUSH Q4H PRN PRN Reason: FOR ITCHING Last Admin: 09/26/18 11:27 Dose: 12.5 mg Fluticasone Propionate (Flonase -) 2 spray NS DAILY PRN PRN Reason: NASAL CONGESTION Gabapentin (Neurontin Oral Liquid -) 100 mg GT TID [facility] Last Admin: 09/28/18 06:35 Dose: 100 mg Vancomycin HCl (Vancomycin (Pre-Docked)) 1,000 mg in 250 mls @ 166.667 mls/hr IVPB BID@0000,1200 [facility]; Protocol Last Admin: 09/28/18 00:52 Dose: 166.667 mls/hr Cefepime HCl 1 gm/ Dextrose 100 mls @ 200 mls/hr IVPB Q8H-IV [facility]; Protocol Last Admin: 09/28/18 01:53 Dose: 200 mls/hr Levothyroxine Sodium (Synthroid -) 125 mcg PEG AM [facility] Last Admin: 09/28/18 06:35 Dose: 125 mcg Lidocaine (Lidoderm Patch -) 1 patch TP DAILY [facility] Last Admin: 09/27/18 10:27 Dose: 1 patch Miscellaneous (Lidoderm Patch Removal) 1 each MC DAILY@2200 [facility] Last Admin: 09/27/18 22:04 Dose: 1 each Ranitidine HCl (Zantac Oral Solution -) 150 mg PEG BID [facility] Last Admin: 09/27/18 22:02 Dose: 150 mg Rosuvastatin Calcium (Crestor -) 10 mg PO HS [facility] - Objective Vital Signs: Vital Signs Temperature 98.8 F 09/28/18 05:57 Pulse Rate 72 09/28/18 05:57 Respiratory Rate 18 09/28/18 05:57 Blood Pressure 131/83 09/28/18 05:57 O2 Sat by Pulse Oximetry (%) 100 09/27/18 21:00 Cardiovascular: Yes: S1, S2 Respiratory: Yes: Regular, CTA Bilaterally Gastrointestinal: Yes: Normal Bowel Sounds, Soft Labs: CBC, BMP 09/27/18 06:30 09/27/18 06:30 INR, PTT INR 1.08 (0.83-1.09) 09/21/18 15:57 Problem List - Problems (1) Aspiration into respiratory tract Code(s): T17.908A - UNSP FB IN RESP TRACT, PART UNSP CAUSING OTH INJURY, INIT Qualifiers: Encounter type: initial encounter Qualified Code(s): T17.908A - Unspecified foreign body in respiratory tract, part unspecified causing other injury, initial encounter (2) Hemoptysis Code(s): R04.2 - HEMOPTYSIS (3) HLD (hyperlipidemia) Code(s): E78.5 - HYPERLIPIDEMIA, UNSPECIFIED Qualifiers: Hyperlipidemia type: pure hypercholesterolemia Qualified Code(s): E78.00 - Pure hypercholesterolemia, unspecified; E78.0 - Pure hypercholesterolemia (4) HTN (hypertension) Code(s): I10 - ESSENTIAL (PRIMARY) HYPERTENSION Qualifiers: Hypertension type: essential hypertension Qualified Code(s): I10 - Essential (primary) hypertension (5) History of throat cancer Code(s): Z85.819 - PRSNL HX OF MALIG NEOPLM OF [place] SITE LIP,ORAL CAV,& PHARYNX (6) Labile essential hypertension Code(s): I10 - ESSENTIAL (PRIMARY) HYPERTENSION (7) PNA (pneumonia) Code(s): J18.9 - PNEUMONIA, UNSPECIFIED ORGANISM Qualifiers: Pneumonia type: aspiration pneumonia Assessment/Plan - Problems (1) Hemoptysis Assessment/Plan: -Improved--minimal -Pulm on board -Chest CT shows B/L lower lobe patchy alveolar opacities could in part include hemorrhage, -f/u chest CT in 4-6 weeks -if hemoptysis persist will need bronchoscopy Code(s): R04.2 - HEMOPTYSIS (2) Aspiration pneumonia Assessment/Plan: -Pulm and ID on board -No leukocytosis -afebrile -Chest CT scan shows B/L lower lobe patchy alveolar opacities, small B/L upper and mid lung field opacities which may be persistent and/or recurrent in nature , probable minimal to mild bibasilar bronchiectasis , no pleural effusion -Cefepime and Vanco --ID follow up Code(s): J69.0 - PNEUMONITIS DUE TO INHALATION OF FOOD AND VOMIT Qualifiers: Aspiration pneumonia type: unspecified Laterality: right Lung location: unspecified part of lung Qualified Code(s): J69.0 - Pneumonitis due to inhalation of food and vomit (3) CAD (coronary artery disease) Assessment/Plan: -Crestor Code(s): I25.10 - ATHSCL HEART DISEASE OF [place] CORONARY ARTERY W/O ANG PCTRS Qualifiers: Coronary Disease-Associated Artery/Lesion type: [place] artery [place] vs. transplanted heart: [place] heart Associated angina: without angina Qualified Code(s): I25.10 - Atherosclerotic heart disease of [place] coronary artery without angina pectoris (4) HLD (hyperlipidemia) Assessment/Plan: -Crestor Code(s): E78.5 - HYPERLIPIDEMIA, UNSPECIFIED Qualifiers: Hyperlipidemia type: pure hypercholesterolemia Qualified Code(s): E78.00 - Pure hypercholesterolemia, unspecified; E78.0 - Pure hypercholesterolemia (5) HTN (hypertension) Assessment/Plan: -Norvasc -low Na diet Code(s): I10 - ESSENTIAL (PRIMARY) HYPERTENSION Qualifiers: Hypertension type: essential hypertension Qualified Code(s): I10 - Essential (primary) hypertension (6) History of throat cancer Code(s): Z85.819 - PRSNL HX OF MALIG NEOPLM OF [email or web address] SITE LIP,ORAL CAV,& PHARYNX (7) Hypothyroid Assessment/Plan: -Levothyroxine Code(s): E03.9 - HYPOTHYROIDISM, UNSPECIFIED Qualifiers: Hypothyroidism type: unspecified Qualified Code(s): E03.9 - Hypothyroidism , unspecified
[2018-09-28] MEDS: LIDOCAINE 5% TOPICAL PATCH TP SCH (09:43)
[2018-09-28] MEDS: RANITIDINE HCL 150 MG/10 ML UNIT-DOSE PEG SCH ×2 (09:45→22:06)
[2018-09-28] MEDS: amLODIPine BESYLATE 5 MG TABLET (FP) PEG SCH (09:45)
--- NOTE | 2018-09-28 14:04 | PN ---
Progress Note (short form) - Note Progress Note: Feels overall better. Less SOB. Minimal hemoptysis mixed with sputum x 1 episode this AM. No acute events overnight. Intake & Output 09/25/18 09/26/18 09/27/18 09/28/18 23:59 23:59 23:59 23:59 Intake Total 309 349 4010 0 Balance 170 404 8927 0 Last Vital Signs Temp Pulse Resp BP Pulse Ox 98.8 F 72 18 131/83 100 09/28/18 05:57 09/28/18 05:57 09/28/18 05:57 09/28/18 05:57 09/27/18 21:00 Active Medications Acetaminophen (Tylenol -) 650 mg PO Q6H PRN PRN Reason: PAIN LEVEL 6-10 Last Admin: 09/26/18 22:28 Dose: 650 mg Albuterol Sulfate (Ventolin 0.083% Nebulizer Soln -) 1 amp NEB PRN PRN PRN Reason: Dyspnea Albuterol/Ipratropium (Duoneb -) 1 amp NEB Q4H PRN PRN Reason: SHORTNESS OF BREATH Amlodipine Besylate (Norvasc -) 5 mg PEG DAILY [facility] Last Admin: 09/28/18 09:45 Dose: Not Given Diphenhydramine HCl (Benadryl Injection -) 12.5 mg IVPUSH Q4H PRN PRN Reason: FOR ITCHING Last Admin: 09/26/18 11:27 Dose: 12.5 mg Fluticasone Propionate (Flonase -) 2 spray NS DAILY PRN PRN Reason: NASAL CONGESTION Gabapentin (Neurontin Oral Liquid -) 100 mg GT TID [facility] Last Admin: 09/28/18 06:35 Dose: 100 mg Vancomycin HCl (Vancomycin (Pre-Docked)) 1,000 mg in 250 mls @ 166.667 mls/hr IVPB BID@0000,1200 [facility]; Protocol Last Admin: 09/28/18 13:35 Dose: 166.667 mls/hr Cefepime HCl 1 gm/ Dextrose 100 mls @ 200 mls/hr IVPB Q8H-IV [facility]; Protocol Last Admin: 09/28/18 09:44 Dose: 200 mls/hr Levothyroxine Sodium (Synthroid -) 125 mcg PEG AM [facility] Last Admin: 09/28/18 06:35 Dose: 125 mcg Lidocaine (Lidoderm Patch -) 1 patch TP DAILY [facility] Last Admin: 09/28/18 09:43 Dose: 1 patch Miscellaneous (Lidoderm Patch Removal) 1 each MC DAILY@2200 [facility] Last Admin: 09/27/18 22:04 Dose: 1 each Ranitidine HCl (Zantac Oral Solution -) 150 mg PEG BID [facility] Last Admin: 09/28/18 09:45 Dose: 150 mg Rosuvastatin Calcium (Crestor -) 10 mg PO [facility] Constitutional: Yes: Well Nourished, Calm Eyes: Yes: WNL HENT: Yes: WNL Neck: Yes: WNL Cardiovascular: Yes: Regular Rate and Rhythm, S1, S2 Respiratory: Yes: Bilateral Rhonchi Gastrointestinal: Yes: Normal Bowel Sounds, Soft Extremities: Yes: WNL Edema: No Labs: Problem List - Problems (1) Hemoptysis Code(s): R04.2 - HEMOPTYSIS (2) Aspiration into respiratory tract Code(s): T17.908A - UNSP FB IN RESP TRACT, PART UNSP CAUSING OTH INJURY, INIT Qualifiers: Encounter type: initial encounter Qualified Code(s): T17.908A - Unspecified foreign body in respiratory tract, part unspecified causing other injury, initial encounter (3) Aspiration pneumonia Code(s): J69.0 - PNEUMONITIS DUE TO INHALATION OF FOOD AND VOMIT Qualifiers: Aspiration pneumonia type: unspecified Laterality: right Lung location: unspecified part of lung Qualified Code(s): J69.0 - Pneumonitis due to inhalation of food and vomit (4) Autonomic postural hypotension Code(s): I95.1 - ORTHOSTATIC HYPOTENSION (5) Benign prostatic hypertrophy Code(s): N40.0 - BENIGN PROSTATIC HYPERPLASIA WITHOUT LOWER URINRY TRACT SYMP (6) CAD (coronary artery disease) Code(s): I25.10 - ATHSCL HEART DISEASE OF [place] CORONARY ARTERY W/O ANG PCTRS Qualifiers: Coronary Disease-Associated Artery/Lesion type: [place] artery [place] vs. transplanted heart: [place] heart Associated angina: without angina Qualified Code(s): I25.10 - Atherosclerotic heart disease of [place] coronary artery without angina pectoris (7) HLD (hyperlipidemia) Code(s): E78.5 - HYPERLIPIDEMIA, UNSPECIFIED Qualifiers: Hyperlipidemia type: pure hypercholesterolemia Qualified Code(s): E78.00 - Pure hypercholesterolemia, unspecified; E78.0 - Pure hypercholesterolemia (8) HTN (hypertension) Code(s): I10 - ESSENTIAL (PRIMARY) HYPERTENSION Qualifiers: Hypertension type: essential hypertension Qualified Code(s): I10 - Essential (primary) hypertension (9) History of throat cancer Code(s): Z85.819 - PRSNL HX OF MALIG NEOPLM OF UNSP SITE LIP,ORAL CAV,& PHARYNX Assessment/Plan IMP BILATERAL PNEUMONIA HEMOPTYSIS SECONDARY TO PNEUMONIA IMPROVING COPD H/O ORAL PHARYNGEAL CA S/P RT H/O ASPIRATION S/P GT AUTONOMIC DYSFUNCTION DM BPH BRONCHIECTASIS PLAN ABX PER ID O2 INHALED BRONCHODILATORS F/U CHEST CT IN 6 WKS TO CONFIRM RESOLUTION OF INFILTRATES Dr Powell
--- NOTE | 2018-09-28 15:06 | PN ---
Progress Note, Physician History of Present Illness: AWAKE, ALERT SEATED IN BED + SCANT AMT BLOOD-STREAKED SPUTUM NO C/O CHEST PAIN/ DYSPNEA AFEBRILE - Current Medication List Current Medications: Active Medications Acetaminophen (Tylenol -) 650 mg PO Q6H PRN PRN Reason: PAIN LEVEL 6-10 Last Admin: 09/26/18 22:28 Dose: 650 mg Albuterol Sulfate (Ventolin 0.083% Nebulizer Soln -) 1 amp NEB PRN PRN PRN Reason: Dyspnea Albuterol/Ipratropium (Duoneb -) 1 amp NEB Q4H PRN PRN Reason: SHORTNESS OF BREATH Amlodipine Besylate (Norvasc -) 5 mg PEG DAILY [facility] Last Admin: 09/28/18 09:45 Dose: Not Given Diphenhydramine HCl (Benadryl Injection -) 12.5 mg IVPUSH Q4H PRN PRN Reason: FOR ITCHING Last Admin: 09/26/18 11:27 Dose: 12.5 mg Fluticasone Propionate (Flonase -) 2 spray NS DAILY PRN PRN Reason: NASAL CONGESTION Gabapentin (Neurontin Oral Liquid -) 100 mg GT TID [facility] Last Admin: 09/28/18 06:35 Dose: 100 mg Vancomycin HCl (Vancomycin (Pre-Docked)) 1,000 mg in 250 mls @ 166.667 mls/hr IVPB BID@0000,1200 [facility]; Protocol Last Admin: 09/28/18 13:35 Dose: 166.667 mls/hr Cefepime HCl 1 gm/ Dextrose 100 mls @ 200 mls/hr IVPB Q8H-IV [facility]; Protocol Last Admin: 09/28/18 09:44 Dose: 200 mls/hr Levothyroxine Sodium (Synthroid -) 125 mcg PEG AM [facility] Last Admin: 09/28/18 06:35 Dose: 125 mcg Lidocaine (Lidoderm Patch -) 1 patch TP DAILY [facility] Last Admin: 09/28/18 09:43 Dose: 1 patch Miscellaneous (Lidoderm Patch Removal) 1 each MC DAILY@2200 [facility] Last Admin: 09/27/18 22:04 Dose: 1 each Ranitidine HCl (Zantac Oral Solution -) 150 mg PEG BID [facility] Last Admin: 09/28/18 09:45 Dose: 150 mg Rosuvastatin Calcium (Crestor -) 10 mg PO HS [facility] - Objective Vital Signs: Vital Signs Temperature 97.8 F 09/28/18 14:00 Pulse Rate 76 09/28/18 14:00 Respiratory Rate 20 09/28/18 14:00 Blood Pressure 149/82 09/28/18 14:00 O2 Sat by Pulse Oximetry (%) 100 09/27/18 21:00 Constitutional: Yes: No Distress Cardiovascular: Yes: Regular Rate and Rhythm, S1, S2 Respiratory: Yes: CTA Bilaterally Gastrointestinal: Yes: Normal Bowel Sounds, Soft. No: Tenderness Edema: No Labs: CBC, BMP 09/27/18 06:30 09/27/18 06:30 INR, PTT INR 1.08 (0.83-1.09) 09/21/18 15:57 Assessment/Plan BIBASILAR PNEUMONIA HEMOPTYSIS HX HEAD AND NECK CA HX MRSA/ [facility] GT BID X 7D NEXT 24H
[2018-09-28] MEDS: LIDOCAINE PATCH REMOVAL MC SCH (22:19)
[2018-09-29] MEDS ORDERED: CEFEPIME HCL 1 GM VIAL (RESTRICTED TO ID) ONE ×3 (00:43→18:02)
[2018-09-29] MEDS ORDERED: DEXTROSE 5%-WATER 100 ML IVPB ONE ×3 (00:43→18:02)
[2018-09-29] MEDS: VANCOMYCIN 1 GRAM (PRE-DOCKED) 1,000 MG/250 ML BAG IVPB SCH ×2 (00:47→14:51)
[2018-09-29] MEDS: CEFEPIME 1 GM in DEXTROSE 5%-WATER 100 ML IVPB SCH ×3 (02:20→20:45)
[2018-09-29] MEDS: GABAPENTIN 250 MG/5 ML ORAL SOLUTION, 470 ML BOTTLE GT SCH ×3 (06:19→21:44)
[2018-09-29] MEDS: LEVOTHYROXINE NA 125 MCG TABLET (FP) PEG SCH (06:19)
--- NOTE | 2018-09-29 08:26 | PN ---
Progress Note, Physician - Current Medication List Current Medications: Active Medications Acetaminophen (Tylenol -) 650 mg PO Q6H PRN PRN Reason: PAIN LEVEL 6-10 Last Admin: 09/26/18 22:28 Dose: 650 mg Albuterol Sulfate (Ventolin 0.083% Nebulizer Soln -) 1 amp NEB PRN PRN PRN Reason: Dyspnea Albuterol/Ipratropium (Duoneb -) 1 amp NEB Q4H PRN PRN Reason: SHORTNESS OF BREATH Amlodipine Besylate (Norvasc -) 5 mg PEG DAILY [facility] Last Admin: 09/28/18 09:45 Dose: Not Given Diphenhydramine HCl (Benadryl Injection -) 12.5 mg IVPUSH Q4H PRN PRN Reason: FOR ITCHING Last Admin: 09/26/18 11:27 Dose: 12.5 mg Fluticasone Propionate (Flonase -) 2 spray NS DAILY PRN PRN Reason: NASAL CONGESTION Gabapentin (Neurontin Oral Liquid -) 100 mg GT TID [facility] Last Admin: 09/29/18 06:19 Dose: 100 mg Vancomycin HCl (Vancomycin (Pre-Docked)) 1,000 mg in 250 mls @ 166.667 mls/hr IVPB BID@0000,1200 [facility]; Protocol Last Admin: 09/29/18 00:47 Dose: 166.667 mls/hr Cefepime HCl 1 gm/ Dextrose 100 mls @ 200 mls/hr IVPB Q8H-IV [facility]; Protocol Last Admin: 09/29/18 02:20 Dose: 200 mls/hr Levothyroxine Sodium (Synthroid -) 125 mcg PEG AM [facility] Last Admin: 09/29/18 06:19 Dose: 125 mcg Lidocaine (Lidoderm Patch -) 1 patch TP DAILY [facility] Last Admin: 09/28/18 09:43 Dose: 1 patch Miscellaneous (Lidoderm Patch Removal) 1 each MC DAILY@2200 [facility] Last Admin: 09/28/18 22:19 Dose: 1 each Ranitidine HCl (Zantac Oral Solution -) 150 mg PEG BID [facility] Last Admin: 09/28/18 22:06 Dose: 150 mg Rosuvastatin Calcium (Crestor -) 10 mg PO HS [facility] - Objective Vital Signs: Vital Signs Temperature 97.8 F 09/29/18 06:00 Pulse Rate 69 09/29/18 06:00 Respiratory Rate 20 09/29/18 06:00 Blood Pressure 121/73 09/29/18 06:00 O2 Sat by Pulse Oximetry (%) 100 09/28/18 21:00 Cardiovascular: Yes: Regular Rate and Rhythm Respiratory: Yes: Regular, CTA Bilaterally Gastrointestinal: Yes: Normal Bowel Sounds, Soft Labs: CBC, BMP 09/27/18 06:30 09/27/18 06:30 INR, PTT INR 1.08 (0.83-1.09) 09/21/18 15:57 Problem List - Problems (1) Aspiration into respiratory tract Code(s): T17.908A - UNSP FB IN RESP TRACT, PART UNSP CAUSING OTH INJURY, INIT Qualifiers: Encounter type: initial encounter Qualified Code(s): T17.908A - Unspecified foreign body in respiratory tract, part unspecified causing other injury, initial encounter (2) Hemoptysis Code(s): R04.2 - HEMOPTYSIS (3) HLD (hyperlipidemia) Code(s): E78.5 - HYPERLIPIDEMIA, UNSPECIFIED Qualifiers: Hyperlipidemia type: pure hypercholesterolemia Qualified Code(s): E78.00 - Pure hypercholesterolemia, unspecified; E78.0 - Pure hypercholesterolemia (4) HTN (hypertension) Code(s): I10 - ESSENTIAL (PRIMARY) HYPERTENSION Qualifiers: Hypertension type: essential hypertension Qualified Code(s): I10 - Essential (primary) hypertension (5) History of throat cancer Code(s): Z85.819 - PRSNL HX OF MALIG NEOPLM OF [place] SITE LIP,ORAL CAV,& PHARYNX (6) Labile essential hypertension Code(s): I10 - ESSENTIAL (PRIMARY) HYPERTENSION (7) PNA (pneumonia) Code(s): J18.9 - PNEUMONIA, UNSPECIFIED ORGANISM Qualifiers: Pneumonia type: aspiration pneumonia Assessment/Plan - Problems (1) Hemoptysis Assessment/Plan: -Improved--minimal -Pulm on board -Chest CT shows B/L lower lobe patchy alveolar opacities could in part include hemorrhage, -f/u chest CT in 4-6 weeks -if hemoptysis persist will need bronchoscopy Code(s): R04.2 - HEMOPTYSIS (2) Aspiration pneumonia Assessment/Plan: -Pulm and ID on board--D/W DR TURNER -No leukocytosis -afebrile -Chest CT scan shows B/L lower lobe patchy alveolar opacities, small B/L upper and mid lung field opacities which may be persistent and/or recurrent in nature , probable minimal to mild bibasilar bronchiectasis , no pleural effusion -Cefepime and Vanco --ID follow up Code(s): J69.0 - PNEUMONITIS DUE TO INHALATION OF FOOD AND VOMIT Qualifiers: Aspiration pneumonia type: unspecified Laterality: right Lung location: unspecified part of lung Qualified Code(s): J69.0 - Pneumonitis due to inhalation of food and vomit (3) CAD (coronary artery disease) Assessment/Plan: -Crestor Code(s): I25.10 - ATHSCL HEART DISEASE OF [place] CORONARY ARTERY W/O ANG PCTRS Qualifiers: Coronary Disease-Associated Artery/Lesion type: [place] artery [place] vs. transplanted heart: [place] heart Associated angina: without angina Qualified Code(s): I25.10 - Atherosclerotic heart disease of [place] coronary artery without angina pectoris (4) HLD (hyperlipidemia) Assessment/Plan: -Crestor Code(s): E78.5 - HYPERLIPIDEMIA, UNSPECIFIED Qualifiers: Hyperlipidemia type: pure hypercholesterolemia Qualified Code(s): E78.00 - Pure hypercholesterolemia, unspecified; E78.0 - Pure hypercholesterolemia (5) HTN (hypertension) Assessment/Plan: -Norvasc -low Na diet Code(s): I10 - ESSENTIAL (PRIMARY) HYPERTENSION Qualifiers: Hypertension type: essential hypertension Qualified Code(s): I10 - Essential (primary) hypertension (6) History of throat cancer Code(s): Z85.819 - PRSNL [facility] S[facility],ORAL CAV,& PHARYNX (7) Hypothyroid Assessment/Plan: -Levothyroxine Code(s): E03.9 - HYPOTHYROIDISM, UNSPECIFIED Qualifiers: Hypothyroidism type: unspecified Qualified Code(s): E03.9 - Hypothyroidism , unspecified
[2018-09-29] MEDS: RANITIDINE HCL 150 MG/10 ML UNIT-DOSE PEG SCH ×2 (09:50→21:44)
[2018-09-29] MEDS: LIDOCAINE 5% TOPICAL PATCH TP SCH (09:50)
[2018-09-29] MEDS: amLODIPine BESYLATE 5 MG TABLET (FP) PEG SCH (09:51)
[2018-09-29 13:34] LABS: BILIRUBIN,TOTAL 0.3 mg/dL (0.2-1); CALCIUM 8.9 mg/dL (8.5-10.1); CREATININE 0.6 mg/dL (0.55-1.3); POTASSIUM 4.4 mmol/L (3.5-5.1); TOT PROT 6.4 g/dl (6.4-8.2)
[2018-09-29 13:36] LABS: BASO % 0.6 % (0-2.0); EOS % 3.4 % (0-4.5); HEMATOCRIT 30.2 % (35.4-49); LYMPH % 10.8 % (8-40); MCH 29.6 pg (25.7-33.7); MEAN CELL VOLUME 89.8 fl (80-96); MEAN PLT VOLUME 8.3 fl (7.5-11.1); MONO % 13.8 % (3.8-10.2); NEUT % 71.4 % (42.8-82.8); PLATELET COUNT 263 K/MM3 (134-434); RBC 3.37 M/mm3 (4.00-5.60); RDW 13.7 % (11.9-15.9); WHITE BLOOD COUNT 4.5 K/mm3 (4.0-10.0)
--- NOTE | 2018-09-29 13:45 | PN ---
Progress Note, Physician History of Present Illness: pulmonary alert,no distress,-sob,less cough,trace heme - Current Medication List Current Medications: Active Medications Acetaminophen (Tylenol -) 650 mg PO Q6H PRN PRN Reason: PAIN LEVEL 6-10 Last Admin: 09/26/18 22:28 Dose: 650 mg Albuterol Sulfate (Ventolin 0.083% Nebulizer Soln -) 1 amp NEB PRN PRN PRN Reason: Dyspnea Albuterol/Ipratropium (Duoneb -) 1 amp NEB Q4H PRN PRN Reason: SHORTNESS OF BREATH Amlodipine Besylate (Norvasc -) 5 mg PEG DAILY [facility] Last Admin: 09/29/18 09:51 Dose: Not Given Diphenhydramine HCl (Benadryl Injection -) 12.5 mg IVPUSH Q4H PRN PRN Reason: FOR ITCHING Last Admin: 09/26/18 11:27 Dose: 12.5 mg Fluticasone Propionate (Flonase -) 2 spray NS DAILY PRN PRN Reason: NASAL CONGESTION Gabapentin (Neurontin Oral Liquid -) 100 mg GT TID [facility] Last Admin: 09/29/18 06:19 Dose: 100 mg Vancomycin HCl (Vancomycin (Pre-Docked)) 1,000 mg in 250 mls @ 166.667 mls/hr IVPB BID@0000,1200 [facility]; Protocol Last Admin: 09/29/18 00:47 Dose: 166.667 mls/hr Cefepime HCl 1 gm/ Dextrose 100 mls @ 200 mls/hr IVPB Q8H-IV [facility]; Protocol Last Admin: 09/29/18 09:50 Dose: 200 mls/hr Levothyroxine Sodium (Synthroid -) 125 mcg PEG AM [facility] Last Admin: 09/29/18 06:19 Dose: 125 mcg Lidocaine (Lidoderm Patch -) 1 patch TP DAILY [facility] Last Admin: 09/29/18 09:50 Dose: 1 patch Miscellaneous (Lidoderm Patch Removal) 1 each MC DAILY@2200 [facility] Last Admin: 09/28/18 22:19 Dose: 1 each Ranitidine HCl (Zantac Oral Solution -) 150 mg PEG BID [facility] Last Admin: 09/29/18 09:50 Dose: 150 mg Rosuvastatin Calcium (Crestor -) 10 mg PO HS [facility] - Objective Vital Signs: Vital Signs Temperature 98.1 F 09/29/18 08:00 Pulse Rate 81 09/29/18 08:00 Respiratory Rate 20 09/29/18 08:00 Blood Pressure 154/83 09/29/18 08:00 O2 Sat by Pulse Oximetry (%) 100 09/28/18 21:00 Constitutional: Yes: Well Nourished, Calm Eyes: Yes: WNL HENT: Yes: WNL Neck: Yes: WNL Cardiovascular: Yes: Regular Rate and Rhythm, S1, S2 Respiratory: Yes: Rales (few bibasilar rales) Gastrointestinal: Yes: Normal Bowel Sounds, Soft Extremities: Yes: WNL Edema: No Labs: CBC, BMP 09/29/18 12:22 09/29/18 12:22 INR, PTT INR 1.08 (0.83-1.09) 09/21/18 15:57 Problem List - Problems (1) Hemoptysis Code(s): R04.2 - HEMOPTYSIS (2) Aspiration into respiratory tract Code(s): T17.908A - UNSP FB IN RESP TRACT, PART UNSP CAUSING OTH INJURY, INIT Qualifiers: Encounter type: initial encounter Qualified Code(s): T17.908A - Unspecified foreign body in respiratory tract, part unspecified causing other injury, initial encounter (3) Aspiration pneumonia Code(s): J69.0 - PNEUMONITIS DUE TO INHALATION OF FOOD AND VOMIT Qualifiers: Aspiration pneumonia type: unspecified Laterality: right Lung location: unspecified part of lung Qualified Code(s): J69.0 - Pneumonitis due to inhalation of food and vomit (4) Autonomic postural hypotension Code(s): I95.1 - ORTHOSTATIC HYPOTENSION (5) Benign prostatic hypertrophy Code(s): N40.0 - BENIGN PROSTATIC HYPERPLASIA WITHOUT LOWER URINRY TRACT SYMP (6) CAD (coronary artery disease) Code(s): I25.10 - ATHSCL HEART DISEASE OF [place] CORONARY ARTERY W/O ANG PCTRS Qualifiers: Coronary Disease-Associated Artery/Lesion type: [place] artery [place] vs. transplanted heart: [place] heart Associated angina: without angina Qualified Code(s): I25.10 - Atherosclerotic heart disease of [place] coronary artery without angina pectoris (7) HLD (hyperlipidemia) Code(s): E78.5 - HYPERLIPIDEMIA, UNSPECIFIED Qualifiers: Hyperlipidemia type: pure hypercholesterolemia Qualified Code(s): E78.00 - Pure hypercholesterolemia, unspecified; E78.0 - Pure hypercholesterolemia (8) HTN (hypertension) Code(s): I10 - ESSENTIAL (PRIMARY) HYPERTENSION Qualifiers: Hypertension type: essential hypertension Qualified Code(s): I10 - Essential (primary) hypertension (9) History of throat cancer Code(s): Z85.819 - PRSNL HX OF MALIG NEOPLM OF UNSP SITE LIP,ORAL CAV,& PHARYNX Assessment/Plan IMP BILATERAL PNEUMONIA LIKELY ASPIRATION HEMOPTYSIS SECONDARY TO PNEUMONIA IMPROVING COPD H/O ORAL PHARYNGEAL CA S/P RT H/O ASPIRATION S/P GT AUTONOMIC DYSFUNCTION DM BPH PLAN ABX PER ID O2 INHALED BRONCHODILATORS F/U CHEST X-RAY TODAY F/U CHEST CT IN 4-6 WKS TO CONFIRM RESOLUTION OF INFILTRATES DR UMANA Problem List - Problems (1) Hemoptysis Code(s): R04.2 - HEMOPTYSIS (2) Aspiration into respiratory tract Code(s): T17.908A - UNSP FB IN RESP TRACT, PART UNSP CAUSING OTH INJURY, INIT Qualifiers: Encounter type: initial encounter Qualified Code(s): T17.908A - Unspecified foreign body in respiratory tract, part unspecified causing other injury, initial encounter (3) Aspiration pneumonia Code(s): J69.0 - PNEUMONITIS DUE TO INHALATION OF FOOD AND VOMIT Qualifiers: Aspiration pneumonia type: unspecified Laterality: right Lung location: unspecified part of lung Qualified Code(s): J69.0 - Pneumonitis due to inhalation of food and vomit (4) Autonomic postural hypotension Code(s): I95.1 - ORTHOSTATIC HYPOTENSION (5) Benign prostatic hypertrophy Code(s): N40.0 - BENIGN PROSTATIC HYPERPLASIA WITHOUT LOWER URINRY TRACT SYMP (6) CAD (coronary artery disease) Code(s): I25.10 - ATHSCL HEART DISEASE OF [place] CORONARY ARTERY W/O ANG PCTRS Qualifiers: Coronary Disease-Associated Artery/Lesion type: [place] artery [place] vs. transplanted heart: [place] heart Associated angina: without angina Qualified Code(s): I25.10 - Atherosclerotic heart disease of [place] coronary artery without angina pectoris (7) HLD (hyperlipidemia) Code(s): E78.5 - HYPERLIPIDEMIA, UNSPECIFIED Qualifiers: Hyperlipidemia type: pure hypercholesterolemia Qualified Code(s): E78.00 - Pure hypercholesterolemia, unspecified; E78.0 - Pure hypercholesterolemia (8) HTN (hypertension) Code(s): I10 - ESSENTIAL (PRIMARY) HYPERTENSION Qualifiers: Hypertension type: essential hypertension Qualified Code(s): I10 - Essential (primary) hypertension (9) History of throat cancer Code(s): Z85.819 - PRSNL HX OF IZAIAH GALO OF [facility] SITE LIP,ORAL CAV,& PHARYNX
[2018-09-29] MEDS ORDERED: PT OWN MED DRAWER 7, Y5N ONE (21:08)
[2018-09-29] MEDS: LIDOCAINE PATCH REMOVAL MC SCH (21:47)
[2018-09-30] MEDS ORDERED: CEFEPIME HCL 1 GM VIAL (RESTRICTED TO ID) ONE ×2 (02:59→09:34)
[2018-09-30] MEDS ORDERED: DEXTROSE 5%-WATER 100 ML IVPB ONE ×2 (03:00→09:34)
[2018-09-30] MEDS: CEFEPIME 1 GM in DEXTROSE 5%-WATER 100 ML IVPB SCH ×2 (03:04→11:03)
[2018-09-30] MEDS: GABAPENTIN 250 MG/5 ML ORAL SOLUTION, 470 ML BOTTLE GT SCH (06:28)
[2018-09-30] MEDS ORDERED: LEVOTHYROXINE NA 75 MCG TABLET (FP) ONE (06:35)
[2018-09-30] MEDS ORDERED: LEVOTHYROXINE NA 50 MCG TABLET (FP) ONE (06:36)
[2018-09-30] MEDS ORDERED: LEVOTHYROXINE PEG SCH (07:00)
[2018-09-30] MEDS ORDERED: VANCOMYCIN 1 GRAM (PRE-DOCKED) 1,000 MG/250 ML BAG IVPB SCH (08:00)
[2018-09-30] MEDS: amLODIPine BESYLATE 5 MG TABLET (FP) PEG SCH (11:03)
[2018-09-30] MEDS: LIDOCAINE 5% TOPICAL PATCH TP SCH (11:03)
[2018-09-30] MEDS: RANITIDINE HCL 150 MG/10 ML UNIT-DOSE PEG SCH (11:03)
[2018-09-30] MEDS ORDERED: PT OWN MED DRAWER 7, Y5N ONE (13:17)
--- NOTE | 2018-09-30 13:42 | PN ---
Progress Note, Physician History of Present Illness: pulmonary alert,feeling better,-resp distress,less cough trace heme - Current Medication List Current Medications: Active Medications Acetaminophen (Tylenol -) 650 mg PO Q6H PRN PRN Reason: PAIN LEVEL 6-10 Last Admin: 09/26/18 22:28 Dose: 650 mg Albuterol Sulfate (Ventolin 0.083% Nebulizer Soln -) 1 amp NEB PRN PRN PRN Reason: Dyspnea Albuterol/Ipratropium (Duoneb -) 1 amp NEB Q4H PRN PRN Reason: SHORTNESS OF BREATH Amlodipine Besylate (Norvasc -) 5 mg PEG DAILY [facility] Last Admin: 09/30/18 11:03 Dose: Not Given Diphenhydramine HCl (Benadryl Injection -) 12.5 mg IVPUSH Q4H PRN PRN Reason: FOR ITCHING Last Admin: 09/26/18 11:27 Dose: 12.5 mg Fluticasone Propionate (Flonase -) 2 spray NS DAILY PRN PRN Reason: NASAL CONGESTION Gabapentin (Neurontin Oral Liquid -) 100 mg GT TID [facility] Last Admin: 09/30/18 06:28 Dose: 100 mg Cefepime HCl 1 gm/ Dextrose 100 mls @ 200 mls/hr IVPB Q8H-IV [facility]; Protocol Last Admin: 09/30/18 11:03 Dose: 200 mls/hr Levothyroxine Sodium 75 mcg/ (Levothyroxine Sodium 50 mcg) 125 mcg PEG DAILY@ 0700 [facility] Last Admin: 09/30/18 06:38 Dose: 125 mcg Lidocaine (Lidoderm Patch -) 1 patch TP DAILY [facility] Last Admin: 09/30/18 11:03 Dose: 1 patch Miscellaneous (Lidoderm Patch Removal) 1 each MC DAILY@2200 [facility] Last Admin: 09/29/18 21:47 Dose: 1 each Ranitidine HCl (Zantac Oral Solution -) 150 mg PEG BID [facility] Last Admin: 09/30/18 11:03 Dose: 150 mg Rosuvastatin Calcium (Crestor -) 10 mg PO HS [facility] - Objective Vital Signs: Vital Signs Temperature 98.4 F 09/30/18 10:00 Pulse Rate 72 09/30/18 10:00 Respiratory Rate 20 09/30/18 10:00 Blood Pressure 134/68 09/30/18 10:00 O2 Sat by Pulse Oximetry (%) 100 09/29/18 23:34 Constitutional: Yes: Well Nourished, Calm Eyes: Yes: WNL HENT: Yes: WNL Neck: Yes: WNL Cardiovascular: Yes: Regular Rate and Rhythm, S1, S2 Respiratory: Yes: Rales (bibasilar crackles) Gastrointestinal: Yes: Normal Bowel Sounds, Soft Extremities: Yes: WNL Edema: No Labs: CBC, BMP - ....Imaging X-ray: Report Reviewed, Image Reviewed Problem List - Problems (1) Hemoptysis Code(s): R04.2 - HEMOPTYSIS (2) Aspiration into respiratory tract Code(s): T17.908A - UNSP FB IN RESP TRACT, PART UNSP CAUSING OTH INJURY, INIT Qualifiers: Encounter type: initial encounter Qualified Code(s): T17.908A - Unspecified foreign body in respiratory tract, part unspecified causing other injury, initial encounter (3) Aspiration pneumonia Code(s): J69.0 - PNEUMONITIS DUE TO INHALATION OF FOOD AND VOMIT Qualifiers: Aspiration pneumonia type: unspecified Laterality: right Lung location: unspecified part of lung Qualified Code(s): J69.0 - Pneumonitis due to inhalation of food and vomit (4) Autonomic postural hypotension Code(s): I95.1 - ORTHOSTATIC HYPOTENSION (5) Benign prostatic hypertrophy Code(s): N40.0 - BENIGN PROSTATIC HYPERPLASIA WITHOUT LOWER URINRY TRACT SYMP (6) CAD (coronary artery disease) Code(s): I25.10 - ATHSCL HEART DISEASE OF [place] CORONARY ARTERY W/O ANG PCTRS Qualifiers: Coronary Disease-Associated Artery/Lesion type: [place] artery [place] vs. transplanted heart: [place] heart Associated angina: without angina Qualified Code(s): I25.10 - Atherosclerotic heart disease of [place] coronary artery without angina pectoris (7) HLD (hyperlipidemia) Code(s): E78.5 - HYPERLIPIDEMIA, UNSPECIFIED Qualifiers: Hyperlipidemia type: pure hypercholesterolemia Qualified Code(s): E78.00 - Pure hypercholesterolemia, unspecified; E78.0 - Pure hypercholesterolemia (8) HTN (hypertension) Code(s): I10 - ESSENTIAL (PRIMARY) HYPERTENSION Qualifiers: Hypertension type: essential hypertension Qualified Code(s): I10 - Essential (primary) hypertension (9) History of throat cancer Code(s): Z85.819 - PRSNL HX OF MALIG NEOPLM OF UNSP SITE LIP,ORAL CAV,& PHARYNX Assessment/Plan IMP BILATERAL PNEUMONIA LIKELY ASPIRATION improving HEMOPTYSIS SECONDARY TO PNEUMONIA IMPROVING COPD H/O ORAL PHARYNGEAL CA S/P RT H/O ASPIRATION S/P GT AUTONOMIC DYSFUNCTION DM BPH PLAN ABX PER ID O2 INHALED BRONCHODILATORS F/U CHEST CT IN 4-6 WKS TO CONFIRM RESOLUTION OF INFILTRATES DR UMANA Problem List - Problems (1) Hemoptysis Code(s): R04.2 - HEMOPTYSIS (2) Aspiration into respiratory tract Code(s): T17.908A - UNSP FB IN RESP TRACT, PART UNSP CAUSING OTH INJURY, INIT Qualifiers: Encounter type: initial encounter Qualified Code(s): T17.908A - Unspecified foreign body in respiratory tract, part unspecified causing other injury, initial encounter (3) Aspiration pneumonia Code(s): J69.0 - PNEUMONITIS DUE TO INHALATION OF FOOD AND VOMIT Qualifiers: Aspiration pneumonia type: unspecified Laterality: right Lung location: unspecified part of lung Qualified Code(s): J69.0 - Pneumonitis due to inhalation of food and vomit (4) Autonomic postural hypotension Code(s): I95.1 - ORTHOSTATIC HYPOTENSION (5) Benign prostatic hypertrophy Code(s): N40.0 - BENIGN PROSTATIC HYPERPLASIA WITHOUT LOWER URINRY TRACT SYMP (6) CAD (coronary artery disease) Code(s): I25.10 - ATHSCL HEART DISEASE OF [place] CORONARY ARTERY W/O ANG PCTRS Qualifiers: Coronary Disease-Associated Artery/Lesion type: [place] artery [place] vs. transplanted heart: [place] heart Associated angina: without angina Qualified Code(s): I25.10 - Atherosclerotic heart disease of [place] coronary artery without angina pectoris (7) HLD (hyperlipidemia) Code(s): E78.5 - HYPERLIPIDEMIA, UNSPECIFIED Qualifiers: Hyperlipidemia type: pure hypercholesterolemia Qualified Code(s): E78.00 - Pure hypercholesterolemia, unspecified; E78.0 - Pure hypercholesterolemia (8) HTN (hypertension) Code(s): I10 - ESSENTIAL (PRIMARY) HYPERTENSION Qualifiers: Hypertension type: essential hypertension Qualified Code(s): I10 - Essential (primary) hypertension (9) History of throat cancer Code(s): Z85.819 - PRSNL HX OF MALIG NEOPLM OF UNSP SITE LIP,ORAL CAV,& PHARYNX
--- NOTE | 2018-09-30 14:19 | DS ---
Physical Examination Vital Signs: Vital Signs Temperature 98.4 F 09/30/18 10:00 Pulse Rate 72 09/30/18 10:00 Respiratory Rate 20 09/30/18 10:00 Blood Pressure 134/68 09/30/18 10:00 O2 Sat by Pulse Oximetry (%) 97 09/30/18 09:00 Findings/Remarks: Patient is 73 y/o male with past medical history of HTN, COPD (home O2 2L), HLD , autonomic dysfunction, hypothyroidism, anemia, DM, and pharyngeal cancer s/p radiation [phone] without surgical resection. Patient presented to ER after having hemoptysis x 2 weeks. Constitutional: Yes: No Distress, Calm Eyes: Yes: Conjunctiva Clear HENT: Yes: Atraumatic Cardiovascular: Yes: Regular Rate and Rhythm Respiratory: Yes: Regular, CTA Bilaterally, On Nasal O2 Gastrointestinal: Yes: Normal Bowel Sounds, Soft, Other (G tube) Musculoskeletal: Yes: WNL Extremities: Yes: WNL Edema: No Neurological: Yes: Alert, Oriented Psychiatric: Yes: Alert, Oriented Labs: CBC, BMP 09/29/18 12:22 09/29/18 12:22 Discharge Summary Reason For Visit: HEMOPTYSIS Current Active Problems Hemoptysis (Acute) Lumbago (Acute) Hospital Course: see progress notes Laboratory Tests 09/21/18 09/21/18 09/21/18 15:57 15:57 15:57 WBC 10.0 RBC 3.67 L Hgb 10.9 L Hct 32.6 L MCV 88.8 MCH 29.6 MCHC 33.3 RDW 13.7 Plt Count 217 MPV 8.2 Absolute Neuts (auto) 8.6 H Neutrophils % 85.7 H D Lymphocytes % 5.7 L D Monocytes % 7.6 Eosinophils % 0.8 D Basophils % 0.2 Nucleated RBC % 0 Retic Count PT with INR 12.80 INR 1.08 PTT (Actin FS) 33.3 Sodium 140 Potassium 3.7 Chloride 100 Carbon Dioxide 33 H Anion Gap 6 L BUN 29.9 H Creatinine 1.0 Est GFR (CKD-EPI)AfAm 86.76 Est GFR (CKD-EPI)NonAf 74.86 Random Glucose 144 H Calcium 9.0 Phosphorus Magnesium Iron TIBC Iron Saturation Unsaturated IBC Ferritin Total Bilirubin 0.7 AST 14 L ALT 21 Alkaline Phosphatase 71 Total Protein 7.1 Albumin 3.4 Triglycerides Cholesterol Total LDL Cholesterol HDL Cholesterol TSH Vancomycin Pre-Dose Blood Type Antibody Screen 09/21/18 09/22/18 09/22/18 15:57 07:46 07:46 WBC 7.0 RBC 3.84 L Hgb 11.5 L Hct 33.8 L MCV 88.0 MCH 30.1 MCHC 34.2 RDW 13.8 Plt Count 212 MPV 8.1 Absolute Neuts (auto) 5.5 Neutrophils % 78.6 Lymphocytes % 11.5 D Monocytes % 7.3 Eosinophils % 2.3 D Basophils % 0.3 Nucleated RBC % 0 Retic Count PT with INR INR PTT (Actin FS) Sodium 141 Potassium 3.7 Chloride 99 Carbon Dioxide 36 H Anion Gap 6 L BUN 20.9 H Creatinine 0.8 Est GFR (CKD-EPI)AfAm 103.44 Est GFR (CKD-EPI)NonAf 89.25 Random Glucose 131 H Calcium 9.1 Phosphorus 3.3 Magnesium 2.4 Iron TIBC Iron Saturation Unsaturated IBC Ferritin Total Bilirubin 0.7 AST 20 ALT 28 Alkaline Phosphatase 74 Total Protein 7.4 Albumin 3.5 Triglycerides 72 Cholesterol 108 Total LDL Cholesterol 41 HDL Cholesterol 56 TSH 3.06 D Vancomycin Pre-Dose Blood Type B POSITIVE Antibody Screen Negative 09/24/18 09/24/18 09/24/18 06:11 06:11 06:11 WBC RBC Hgb Hct MCV MCH MCHC RDW Plt Count MPV Absolute Neuts (auto) Neutrophils % Lymphocytes % Monocytes % Eosinophils % Basophils % Nucleated RBC % Retic Count 1.33 PT with INR INR PTT (Actin FS) Sodium Potassium Chloride Carbon Dioxide Anion Gap BUN Creatinine Est GFR (CKD-EPI)AfAm Est GFR (CKD-EPI)NonAf Random Glucose Calcium Phosphorus Magnesium Iron 34 L TIBC 254 Iron Saturation 13 L Unsaturated IBC 220 Ferritin 176.2 Total Bilirubin AST ALT Alkaline Phosphatase Total Protein Albumin Triglycerides Cholesterol Total LDL Cholesterol HDL Cholesterol TSH Vancomycin Pre-Dose Blood Type Antibody Screen 09/24/18 09/27/18 09/27/18 11:00 06:30 06:30 WBC 7.8 RBC 3.61 L Hgb 10.6 L Hct 32.2 L MCV 89.0 MCH 29.3 MCHC 32.9 RDW 14.0 Plt Count 245 MPV 8.0 Absolute Neuts (auto) Neutrophils % Lymphocytes % Monocytes % Eosinophils % Basophils % Nucleated RBC % Retic Count PT with INR INR PTT (Actin FS) Sodium 139 Potassium 4.1 Chloride 99 Carbon Dioxide 37 H Anion Gap 3 L BUN 17.8 Creatinine 0.7 Est GFR (CKD-EPI)AfAm 109.27 Est GFR (CKD-EPI)NonAf 94.28 Random Glucose 144 H Calcium 9.0 Phosphorus Magnesium Iron TIBC Iron Saturation Unsaturated IBC Ferritin Total Bilirubin AST ALT Alkaline Phosphatase Total Protein Albumin Triglycerides Cholesterol Total LDL Cholesterol HDL Cholesterol TSH Vancomycin Pre-Dose 15.5 L Blood Type Antibody Screen 09/29/18 09/29/18 12:22 12:22 WBC 4.5 RBC 3.37 L Hgb 10.0 L Hct 30.2 L MCV 89.8 MCH 29.6 MCHC 33.0 RDW 13.7 Plt Count 263 MPV 8.3 Absolute Neuts (auto) 3.2 Neutrophils % 71.4 Lymphocytes % 10.8 Monocytes % 13.8 H D Eosinophils % 3.4 Basophils % 0.6 Nucleated RBC % 0 Retic Count PT with INR INR PTT (Actin FS) Sodium 141 Potassium 4.4 Chloride 102 Carbon Dioxide 34 H Anion Gap 5 L BUN 19.0 H Creatinine 0.6 Est GFR (CKD-EPI)AfAm 116.42 Est GFR (CKD-EPI)NonAf 100.45 Random Glucose 102 Calcium 8.9 Phosphorus Magnesium Iron TIBC Iron Saturation Unsaturated IBC Ferritin Total Bilirubin 0.3 AST 15 ALT 22 Alkaline Phosphatase 66 Total Protein 6.4 Albumin 3.0 L Triglycerides Cholesterol Total LDL Cholesterol HDL Cholesterol TSH Vancomycin Pre-Dose Blood Type Antibody Screen Active Medications Generic Name Dose Route Start Last Admin Trade Name Freq PRN Reason Stop Dose Admin Acetaminophen 650 mg 09/21/18 20:20 09/26/18 22:28 Tylenol - PO 650 mg Q6H PRN Administration PAIN LEVEL 6-10 Albuterol Sulfate 1 amp 09/21/18 20:20 Ventolin 0.083% Nebulizer Soln - NEB PRN PRN Dyspnea Albuterol/Ipratropium 1 amp 09/21/18 20:20 Duoneb - NEB Q4H PRN SHORTNESS OF BREATH Amlodipine Besylate 5 mg 09/23/18 10:00 09/30/18 11:03 Norvasc - PEG Not Given DAILY [facility] Diphenhydramine HCl 12.5 mg 09/26/18 09:54 09/26/18 11:27 Benadryl Injection - IVPUSH 12.5 mg Q4H PRN Administration FOR ITCHING Fluticasone Propionate 2 spray 09/22/18 10:07 Flonase - NS DAILY PRN NASAL CONGESTION Gabapentin 100 mg 09/21/18 22:00 09/30/18 06:28 Neurontin Oral Liquid - GT 100 mg TID [facility] Administration Cefepime HCl 1 gm/ Dextrose 100 mls @ 200 mls/hr 09/22/18 12:30 09/30/18 11: 03 IVPB 200 mls/hr Q8H-IV [facility] Administration Protocol Levothyroxine Sodium 75 mcg/ 125 mcg 09/30/18 07:00 09/30/18 06:38 Levothyroxine Sodium 50 mcg PEG 125 mcg DAILY@0700 [facility] Administration Lidocaine 1 patch 09/23/18 10:00 09/30/18 11:03 Lidoderm Patch - TP 1 patch DAILY [facility] Administration Miscellaneous 1 each 09/23/18 22:00 09/29/18 21:47 Lidoderm Patch Removal MC 1 each DAILY@2200 [facility] Administration Ranitidine HCl 150 mg 09/22/18 22:00 09/30/18 11:03 Zantac Oral Solution - PEG 150 mg BID [facility] Administration Rosuvastatin Calcium 10 mg 09/22/18 22:00 Crestor - PO HS [facility] Baby's Blood Type, [place] Blood Type B POSITIVE 09/21/18 15:57 Microbiology 09/22/18 10:55 Blood - Peripheral Venous Blood Culture - Final NO GROWTH AFTER 5 DAYS INCUBATION 09/22/18 10:47 Blood - Peripheral Venous Blood Culture - Final NO GROWTH AFTER 5 DAYS INCUBATION 09/23/18 17:00 Sputum - Expectorated Gram Stain - Final Condition: Stable - Instructions Diet, Activity, Other Instructions: follow up with pmd in 1 week follow up with [facility] Dr Maki for repeat Chest CT in 4-6 weeks continue with antibiotics as prescribed continue with current medication regimen return to ER if develop fever, blood in sputum, altered mental status, respiratory distress, chest pain Referrals: Jj Maki MD [Staff Physician] - Disposition: HOME - Home Medications Comprehensive Discharge Medication List: Ambulatory Orders Aspirin [ASA -] 81 mg PO DAILY 10/20/15 Cholecalciferol (Vitamin D3) [Vitamin D3] 2,000 unit PO DAILY 10/20/15 Cyanocobalamin (Vitamin B-12) [Vitamin B-12] 1,000 mcg PO DAILY 10/20/15 Levothyroxine Sodium [Unithroid] 125 mcg PO DAILY 10/20/15 Rosuvastatin Calcium [Crestor] 10 mg PO HS 10/20/15 Acetaminophen [Tylenol .Regular Strength -] 650 mg PO Q6H PRN tablet 07/06/17 Midodrine HCl [Proamatine -] 5 mg PO BID-MID PRN #60 tablet 07/06/17 Albuterol 0.083% Nebulizer [place] [Ventolin 0.083% Nebulizer Soln -] 1 amp NEB PRN PRN 01/16/18 Amlodipine Besylate [Norvasc -] 5 mg PO DAILY 01/16/18 Fluticasone Prop 0.05% Nasal [Flonase -] 2 spray NS DAILY PRN 01/16/18 Sodium Chloride 1,000 mg MC DAILY 01/16/18 Acetaminophen [Tylenol .Regular Strength -] 650 mg PO Q4H PRN tablet 01/21/18 Albuterol 2.5/Ipratropium 0.5 [Duoneb -] 1 amp NEB Q4H PRN amp 01/21/18 Gabapentin Liquid [Neurontin Oral Liquid -] 100 mg GT TID #120 ml 02/19/18 Nystatin/Triamcinolone Top Cr [Mycolog II -] 1 applic TP BID #45 g 02/19/18 Amoxicillin/Potassium Clav [Augmentin ES Suspension] 600 mg PO BID #30 ml Amox-Tr/K Cl [Augmentin - 875Mg Tablet] 1 tab GT BID #14 tablet 09/30/18 Lidocaine 5% Patch [Lidoderm -] 1 patch TP DAILY #30 patch 09/30/18
[2018-09-30 15:03] VITALS: BP 156/97; PULSE 78; TEMP 97.9
== END 2018-09-30 16:24 | disposition home or self-care (01) | DRG 178 ==
LOC: JER 13:36 → JERBED 16:47 → J7W 09-23 02:31
PROVIDERS: ADMIT Family Medicine; ATTEND Family Medicine
DX: J69.0 Pneumonitis due to inhalation of food and vomit (principal); R04.2 Hemoptysis; E78.5 Hyperlipidemia, unspecified; I10 Essential (primary) hypertension; J44.9 Chronic obstructive pulmonary disease, unspecified; E11.9 Type 2 diabetes mellitus without complications; Z99.81 Dependence on supplemental oxygen; Z85.22 Personal history of malignant neoplasm of nasal cavities, middle ear, and accessory sinuses; Z85.810 Personal history of malignant neoplasm of tongue; Z85.818 Personal history of malignant neoplasm of other sites of lip, oral cavity, and pharynx; N40.0 Benign prostatic hyperplasia without lower urinary tract symptoms; K21.9 Gastro-esophageal reflux disease without esophagitis; Z85.3 Personal history of malignant neoplasm of breast; Z85.118 Personal history of other malignant neoplasm of bronchus and lung; I95.1 Orthostatic hypotension; I25.10 Atherosclerotic heart disease of native coronary artery without angina pectoris; E89.0 Postprocedural hypothyroidism; Z93.1 Gastrostomy status; D50.9 Iron deficiency anemia, unspecified; G90.8 Other disorders of autonomic nervous system
CPT/HCPCS: 36415; 70491-TC; 71046-TC-FY; 71260-TC; 80048; 80053; 80061; 82728; 83540; 83550; 83721; 83735; 84100; 84436; 84443; 85025; 85027; 85044; 85610; 85730; 86850; 86900; 86901; 87040; 87205; 93005; 93010; 97116-GP; 97161-GP; 99284-25; G0480; J1439; J1756

== ENCOUNTER 2018-11-16 21:17 | Emergency (ER) | payer OTHER, BC ==
[2018-11-16 21:25] VITALS: TEMP 98.5; BMI 26.7
--- NOTE | 2018-11-16 21:25 | PDOC ---
Rapid Medical Evaluation Medical Evaluation: Allergies Allergy/AdvReac Type Severity Reaction Status Date / Time tamsulosin HCl [From Flomax] AdvReac Intermediate dizziness Verified 02/14/18 06 :07 I have performed a brief in-person evaluation of this patient. The patient presents with a chief complaint of: history of HTN, COPD (home O2 2L ), HLD, autonomic dysfunction, hypothyroidism, anemia, DM, and pharyngeal cancer s/p radiation [phone]; c/o L foot injury today; had passed out today due to his autonomic dysfunction (was trying to get chair before he could pass out but fell); denies taking blood thinners Pertinent physical exam findings: In NAD, +swelling and tenderness along lateral aspect of L foot/ankle I have ordered the following: Xray, labs, EKG The patient will proceed to the ED for further evaluation. 11/16/18 21:20
[2018-11-16] MEDS ORDERED: IBUPROFEN 600 MG TABLET (FP) PO ONE ×2 (21:26→22:18)
[2018-11-16 22:36] LABS: BASO % 0.5 % (0-2.0); EOS % 1.9 % (0-4.5); HEMATOCRIT 34.3 % (35.4-49); HEMOGLOBIN 11.1 GM/dL (11.7-16.9); LYMPH % 7.5 % (8-40); MCH 29.6 pg (25.7-33.7); MCHC 32.5 g/dl (32.0-35.9); MEAN PLT VOLUME 8.1 fl (7.5-11.1); MONO % 6.3 % (3.8-10.2); NEUT % 83.8 % (42.8-82.8); PLATELET COUNT 251 K/MM3 (134-434); RBC 3.76 M/mm3 (4.00-5.60); RDW 14.4 % (11.9-15.9)
--- NOTE | 2018-11-16 22:58 | PDOC ---
Attending Attestation - Resident Resident Name: HarithabrayananJorge - ED Attending Attestation I have performed the following: I have examined & evaluated the patient, The case was reviewed & discussed with the resident, I agree w/resident's findings & plan - HPI HPI: 11/17/18 02:18 see resident hpi - Physicial Exam PE: 11/17/18 02:19 agree with resident exam - Medical Decision Making 11/17/18 02:19 73 yo male s/p fall with left ankle/leg and right elbow pain X-rays were obtained of the left foot/ankle/tib-fib and right elbow There is a small fragment lateral to the 5th metatarsal, possibly avulsio pt to be placed in a posterior splint, d/c with ortho follow up In regards to patient's syncope, patient states that he has had similar events 100s of times and does not want further evALUATION
[2018-11-16] MEDS ORDERED: IBUPROFEN 800 MG/8 ML IJ IVPB ONE (23:07)
[2018-11-16 23:13] LABS: ALBUMIN 3.6 g/dl (3.4-5.0); ALK PHOS 75 U/L (45-117); ANION GAP 8 MMOL/L (8-16); BILIRUBIN,TOTAL 0.3 mg/dL (0.2-1); CALCIUM 9.4 mg/dL (8.5-10.1); CHLORIDE 101 mmol/L (98-107); CO2 32 mmol/L (21-32); CREATININE 0.9 mg/dL (0.55-1.3); GLUCOSE,RANDOM 114 mg/dL (74-106); POTASSIUM 4.3 mmol/L (3.5-5.1); SGOT/AST 23 U/L (15-37); SGPT/ALT 21 U/L (13-61); SODIUM 141 mmol/L (136-145); TOT PROT 6.9 g/dl (6.4-8.2)
[2018-11-16] MEDS ORDERED: ACETAMINOPHEN 1000 MG/100 ML VIAL (NON FORMULARY) IVPB ONE (23:14)
[2018-11-16] MEDS ORDERED: ACETAMINOPHEN INJECTION 100 ML IVPB ONE (23:22)
--- NOTE | 2018-11-17 00:20 | PDOC ---
History of Present Illness - General Chief Complaint: Injury Stated Complaint: INJURY ON LT FOOT Time Seen by Provider: 11/16/18 21:20 History Source: Patient, Family - History of Present Illness Initial Comments: 11/17/18 06:36 Mr. Avila is a 73 y/o M with hx autonomic orthostatic hypotension, COPD on 2L home O2, HLD, hypothyroidism, DM presenting after a syncopal episode at home. He reports that due to his autonomic orthostatic hypotension he has approx 1-2 syncopal episodes per month. He is followed by Neurology (Dr. Rodriguez) for this and takes droxidopa to control symptoms. He reports that today at approx 1800 he was standing [place], when he began to feel his vision growing dark alongside lightheadedness. He reports that he typically sits down on the floor, but in an effort to avoid crashing into the curio, he attempted to walk several steps to a nearby chair. He reports that he was unable to reach the chair in time, and fell forward, rolling his L ankle and landing on his R elbow. He denies any head injury during the fall, and reports that he remembers catching himself on his hands and knees before entirely losing consciousness. He denies any palpitations, head or neck pain, chest pain, shortness of breath, abdominal pain, confusion after regaining consciousness, recent fevers, chills, dysuria, cough. Past History - Past Medical History Allergies/Adverse Reactions: Allergies Allergy/AdvReac Type Severity Reaction Status Date / Time tamsulosin HCl [From Flomax] AdvReac Intermediate dizziness Verified 11/16/18 21 :22 Home Medications: Ambulatory Orders Aspirin [ASA -] 81 mg PO DAILY 10/20/15 Cholecalciferol (Vitamin D3) [Vitamin D3] 2,000 unit PO DAILY 10/20/15 Cyanocobalamin (Vitamin B-12) [Vitamin B-12] 1,000 mcg PO DAILY 10/20/15 Levothyroxine Sodium [Unithroid] 125 mcg PO DAILY 10/20/15 Rosuvastatin Calcium [Crestor] 10 mg PO HS 10/20/15 Acetaminophen [Tylenol .Regular Strength -] 650 mg PO Q6H PRN tablet 07/06/17 Midodrine HCl [Proamatine -] 5 mg PO BID-MID PRN #60 tablet 07/06/17 Albuterol 0.083% Nebulizer Malissa [Ventolin 0.083% Nebulizer Soln -] 1 amp NEB PRN PRN 01/16/18 Amlodipine Besylate [Norvasc -] 5 mg PO DAILY 01/16/18 Fluticasone Prop 0.05% Nasal [Flonase -] 2 spray NS DAILY PRN 01/16/18 Sodium Chloride 1,000 mg MC DAILY 01/16/18 Acetaminophen [Tylenol .Regular Strength -] 650 mg PO Q4H PRN tablet 01/21/18 Albuterol 2.5/Ipratropium 0.5 [Duoneb -] 1 amp NEB Q4H PRN amp 01/21/18 Gabapentin Liquid [Neurontin Oral Liquid -] 100 mg GT TID #120 ml 02/19/18 Nystatin/Triamcinolone Top Cr [Mycolog II -] 1 applic TP BID #45 g 02/19/18 Amoxicillin/Potassium Clav [Augmentin ES Suspension] 600 mg PO BID #30 ml Amox-Tr/K Cl [Augmentin - 875Mg Tablet] 1 tab GT BID #14 tablet 09/30/18 Lidocaine 5% Patch [Lidoderm -] 1 patch TP DAILY #30 patch 09/30/18 Anemia: Yes Asthma: No Cancer: Yes (Tongue and throat CA 2010) Cardiac Disorders: Yes CVA: No COPD: No CHF: No Dementia: No Diabetes: No GI Disorders: Yes (GERD) Disorders: (BPH) HTN: Yes Hypercholesterolemia: Yes Liver Disease: No Seizures: No Thyroid Disease: Yes (hypo) - Surgical History Abdominal Surgery: No Appendectomy: No Cardiac Surgery: No Cholecystectomy: No GI Surgery: Yes (G tube) Lung Surgery: No Neurologic Surgery: No Orthopedic Surgery: Yes - Immunization History Immunization Up to Date: Yes - Suicide/Smoking/Psychosocial Hx Smoking History: Never smoked Have you smoked in the past 12 months: No Hx Alcohol Use: No Drug/Substance Use Hx: No Substance Use Type: None Hx Substance Use Treatment: No Review of Systems - Review of Systems Able to Perform ROS?: Yes Comments:: 11/17/18 05:03 ROS: GENERAL/CONSTITUTIONAL: No fever or chills. No weakness. HEAD, EYES, EARS, NOSE AND THROAT: No change in vision. No ear pain or discharge. No sore throat. CARDIOVASCULAR: No chest pain or shortness of breath RESPIRATORY: No cough, wheezing, or hemoptysis. GASTROINTESTINAL: No nausea, vomiting, diarrhea or constipation. GENITOURINARY: No dysuria, frequency, or change in urination. MUSCULOSKELETAL: L ankle muscle swelling, pain. Chronic back pain. No other joint or muscle swelling or pain. No neck. SKIN: No rash NEUROLOGIC: LOC. No headache, vertigo, or change in strength/sensation. ENDOCRINE: No increased thirst. No abnormal weight change HEMATOLOGIC/LYMPHATIC: No anemia, easy bleeding, or history of blood clots. ALLERGIC/IMMUNOLOGIC: No hives or skin allergy. *Physical Exam - Vital Signs Last Vital Signs Temp Pulse Resp BP Pulse Ox 98.5 F 89 18 166/93 96 11/16/18 21:22 11/16/18 21:22 11/16/18 21:22 11/16/18 21:22 11/16/18 21:22 - Physical Exam Comments: 11/17/18 05:22 PE: GENERAL: Awake, alert, and fully oriented, in no acute distress HEAD: No signs of trauma, normocephalic, atraumatic EYES: PERRLA, EOMI, sclera anicteric, conjunctiva clear ENT: Auricles normal inspection, hearing grossly normal, nares patent, oropharynx clear without exudates. Moist mucosa NECK: Normal ROM, supple, no lymphadenopathy, JVD, or masses LUNGS: No distress, speaks full sentences, clear to auscultation bilaterally HEART: Regular rate and rhythm, normal S1 and S2, no murmurs, rubs or gallops, peripheral pulses normal and equal bilaterally. ABDOMEN: Soft, nontender, normoactive bowel sounds. No guarding, no rebound. No masses EXTREMITIES : L ankle swelling, tenderness. ROM limited by pain. No obvious bony deformities noted. No contusions. Normal inspection, Normal range of motion , no edema. No clubbing or cyanosis NEUROLOGICAL: Cranial nerves II through XII grossly intact. Normal speech, no focal sensorimotor deficits SKIN: Warm, Dry, normal turgor, no rashes or lesions noted ED Treatment Course - LABORATORY CBC & Chemistry Diagram: 11/16/18 22:28 11/16/18 22:28 - ADDITIONAL ORDERS Additional order review: Laboratory Results 11/16/18 11/16/18 22:28 22:28 Sodium 141 Cancelled Potassium 4.3 Cancelled Chloride 101 Cancelled Carbon Dioxide 32 Cancelled Anion Gap 8 Cancelled BUN 24.0 H Cancelled Creatinine 0.9 Cancelled Est GFR (CKD-EPI)AfAm 98.55 Cancelled Est GFR (CKD-EPI)NonAf 85.03 Cancelled Random Glucose 114 H Cancelled Calcium 9.4 Cancelled Total Bilirubin 0.3 Cancelled AST 23 Cancelled ALT 21 Cancelled Alkaline Phosphatase 75 Cancelled Troponin I < 0.02 Total Protein 6.9 Cancelled Albumin 3.6 Cancelled 11/16/18 22:28 RBC 3.76 L MCV 91.0 MCHC 32.5 RDW 14.4 MPV 8.1 Neutrophils % 83.8 H Lymphocytes % 7.5 L D Monocytes % 6.3 Eosinophils % 1.9 Basophils % 0.5 - Medications Given in the ED: ED Medications Discontinued Medications Generic Name Dose Route Start Last Admin Trade Name Freq PRN Reason Stop Dose Admin Acetaminophen 1,000 mg 11/16/18 23:14 11/16/18 23:15 Ofirmev Injection - IVPB 11/16/18 23:15 1,000 mg ONCE ONE Administration Ibuprofen 600 mg 11/16/18 21:26 11/16/18 23:20 Motrin - PO 11/16/18 21:27 Not Given ONCE ONE Ibuprofen 800 mg 11/16/18 23:07 11/16/18 23:20 Caldolor Injection - IVPB 11/16/18 23:08 Not Given ONCE ONE Medical Decision Making - Medical Decision Making 73 M with autonomic orthostatic hypotension, COPD on home O2, HLD, DM, hypothyroidism, presenting s/p syncopal episode at home with injury to L ankle, R elbow. Episode reportedly identical to prior LOC due to autonomic othostasis. Denies head injury, headache, normal ROM of neck without pain. While similar to prior episodes, cannot r/o other causes of syncope. Plan: CBC CMP Cardiac profile EKG X ray: L ankle, L tib fib, L knee, R elbow Ofirmev for pain control Dispo: Pending labs, imaging --- CBC, CMP - wnl Troponin - negative Dispo pending imaging On reassessment, pain improved with ofirmev. --- X rays reviewed, no fracture noted. Plan for splinting, discharge home. 11/17/18 05:23 Splint applied. 10 min s/p splint application, motor function intact, capillary refil < 2s. At baseline he has no sensitivity of the bilateral lower extremities. Plan for discharge home with PCP follow up. *DC/Admit/Observation/Transfer Diagnosis at time of Disposition: Fall Qualifiers: Encounter type: initial encounter Qualified Code(s): W19.XXXA - Unspecified fall, initial encounter - Discharge Dispostion Disposition: HOME Condition at time of disposition: Stable Decision to Admit order: No - Referrals Referrals: Fern Murillo MD [Primary Care Provider] - - Patient Instructions Printed Discharge Instructions: How to Take Care of Your Splint Additional Instructions: You were seen in the emergency department after a fall with an ankle injury. Your blood work, EKG, and X rays were normal. Please follow up with your primary care provider as soon as possible, within the next seven days. We placed a splint on your left leg, please keep the splint dry. Cover that foot with a plastic bag to shower and try to keep it as dry as possible. - Post Discharge Activity
[2018-11-17 01:39] VITALS: BP 146/88; PULSE 76
--- NOTE | 2018-11-17 10:50 | EKG ---
Test Reason : Blood Pressure : / mmHG Vent. Rate : 085 BPM Atrial Rate : 085 BPM P-R Int : 178 ms QRS Dur : 090 ms QT Int : 384 ms P-R-T Axes : 054 003 054 degrees QTc Int : 456 ms NORMAL SINUS RHYTHM NORMAL ECG WHEN COMPARED WITH ECG OF 23-SEP-2018 11:45, NONSPECIFIC T WAVE ABNORMALITY NO LONGER EVIDENT IN LATERAL LEADS Confirmed by Beto Mg MD ([id number]) on 11/17/2018 10:50:10 AM Referred By: Confirmed By:Beto Mg MD
== END 2018-11-17 03:35 | disposition home or self-care (01) ==
LOC: JER 21:17
PROC: 3E033NZ Introduction of Analgesics, Hypnotics, Sedatives into Peripheral Vein, Percutaneous Approach (ICD-10-PCS; principal; 2018-11-16)
DX: R55 Syncope and collapse (principal); S99.822A Other specified injuries of left foot, initial encounter; S59.801A Other specified injuries of right elbow, initial encounter; W18.39XA Other fall on same level, initial encounter; Y93.89 Activity, other specified; Y92.018 Other place in single-family (private) house as the place of occurrence of the external cause; Y99.8 Other external cause status; G90.3 Multi-system degeneration of the autonomic nervous system; J44.9 Chronic obstructive pulmonary disease, unspecified; Z99.81 Dependence on supplemental oxygen; E78.5 Hyperlipidemia, unspecified; E03.9 Hypothyroidism, unspecified; E11.9 Type 2 diabetes mellitus without complications
CPT/HCPCS: 73070-TC-RT-FY; 73562-TC-LT-FY; 73590-TC-LT-FY; 73610-TC-LT-FY; 73630-TC-LT; 80053; 84484; 85025; 93005; 93010; 96374; 99283-25; J0131

== ENCOUNTER 2018-12-13 22:10 | Inpatient (IN) | payer OTHER, BC ==
[2018-12-13 22:32] VITALS: BMI 25.7
--- NOTE | 2018-12-14 00:44 | PDOC ---
Attending Attestation - Resident Resident Name: RajSoila - ED Attending Attestation I have performed the following: I have examined & evaluated the patient, The case was reviewed & discussed with the resident, I agree w/resident's findings & plan - HPI HPI: 12/14/18 00:57 Pt comes with SOB and fever and hyemoptysis. Ever since his head and neck radiation, he has had microaspiration of his food. He keeps getting aspiration pneumonias. - Physicial Exam PE: 12/14/18 03:08 Agree with resident exam. Pt has crackles in the bases of his lungs. Pt had a fever at home; fever is defervescing here. - Medical Decision Making 12/14/18 00:44 Pt comes with hemoptysis and sob. He has COPD and he recently drove to [place]; possibly DVT/PE/pneumonia/TB. Labs normal Pt will have CTA of his lungs. 12/14/18 00:57 12/15/18 22:29 ECG: NSR (HR 80, HI 172, QRS 92, QTc 456). No changes from prior ECG. Chest x-ray with worsened RML and RLL infiltrates compared to prior -- providing IV clindamycin for abx coverage Pt taken for CTA to r/o PE CTA chest: FINDINGS: Negative for pulmonary embolus. Negative for thoracic aortic aneurysm or dissection. Extensive infiltrates/pneumonia is noted in the right lower lobe and right middle lobe. There is also a milder infiltrate in the left lower lobe. Cardiomegaly and calcified coronary artery plaque. Gastrostomy tube noted. Right renal cyst. 12/14/18 02:57 Pt will be admitted for bilateral pneumonia Heart Score/ECG Review - ECG Intrepretation Rhythm: Regular Rhythm - Brilliant Brilliant: Normal - P and HI Delta Wave(s) Present: No WPW: No - QRS Poor R Wave Progression: No Q Wave Present: No - ST and T Early Repolarization: No Non Specific ST-T Wave changes: No Flattened T Waves: No Prolonged Q-T Interval: No - ECG Impressions Normal ECG: Yes Non-specific ST Elevation: No Ischemic Changes: No Bradycardia: No Torsades liz Pointes: No WPW: No
[2018-12-14] MEDS ORDERED: CLINDAMYCIN 600MG PREMIX IVPB 600 MG/50 ML BAG IVPB ONE ×2 (00:58→01:02)
[2018-12-14 01:11] LABS: BASO % 0.3 % (0-2.0); EOS % 3.6 % (0-4.5); HEMATOCRIT 32.4 % (35.4-49); HEMOGLOBIN 10.7 GM/dL (11.7-16.9); LYMPH % 14.1 % (8-40); MCH 29.9 pg (25.7-33.7); MCHC 33.1 g/dl (32.0-35.9); MEAN CELL VOLUME 90.4 fl (80-96); MEAN PLT VOLUME 7.7 fl (7.5-11.1); MONO % 9.3 % (3.8-10.2); NEUT % 72.7 % (42.8-82.8); PLATELET COUNT 242 K/MM3 (134-434); RBC 3.58 M/mm3 (4.00-5.60); RDW 14.5 % (11.9-15.9); WHITE BLOOD COUNT 5.4 K/mm3 (4.0-10.0)
[2018-12-14 01:12] LABS: VENOUS PC02 41.7 mmHg (38-52); VENOUS PH 7.47 (7.31-7.41); VENOUS PO2 71.3 mmHg (28-48)
[2018-12-14 01:21] LABS: INR 1.05 (0.83-1.09); PROTHROMBIN TIME (PATIENT) 12.4 SEC (9.7-13.0)
[2018-12-14] MEDS ORDERED: ALBUTEROL SO4 2.5/IPRATROPIUM 0.5 INH SOL 3 ML VIAL.NEB. NEB ONE (01:23)
[2018-12-14] MEDS ORDERED: LORATADINE 10 MG TABLET ONE (01:24)
[2018-12-14 01:28] LABS: ALBUMIN 3.3 g/dl (3.4-5.0); BILIRUBIN,TOTAL 0.5 mg/dL (0.2-1); BLOOD UREA NITROGEN 36.9 mg/dL (7-18); CREATININE 0.8 mg/dL (0.55-1.3); POTASSIUM 4.2 mmol/L (3.5-5.1)
[2018-12-14] MEDS ORDERED: SODIUM CHLORIDE 0.9% 500 ML INFUS.BAG IV ONE (01:44)
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
[2018-12-14 03:41] LABS: N-TERMINAL BNP 333.4 pg/ml (5-125)
--- NOTE | 2018-12-14 03:43 | HP ---
Admitting History and Physical - Primary Care Physician PCP: Dr. Murillo - Admission Chief Complaint: Hemoptysis, fever History of Present Illness: 73 year old male with PMH of HTN, HLD, COPD, 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 Patient stated he usually has mild hemoptysis, however it became very severe and brought him in to hospital for further evaluation. Patient denies eating, drinking anything, however when does oral care in am take a "bottle cap worth of water". Patient had fever 103 last night which resolved after taking Tylenol. Patient states he has been on a road trip to [place] before the start of his symptoms. Patient denies any headache, syncope, chest pain, SOB, nausea/ vomiting, urinary symptoms, diarrhea/constipation, or leg swelling. History Source: Patient Limitations to Obtaining History: No Limitations - Past Medical History Cardiovascular: Yes: HTN, Hyperlipdemia, Other (Autonomic dysfunction with orthostatic hypotension) Pulmonary: Yes: Cancer (pharyngeal CA (last radiation in 2011)), Pneumonia, Other (aspiration) Renal/: Yes: BPH Heme/Onc: Yes: Anemia ENT: Yes: Other (head and neck CA) Endocrine: Yes: Hypothyroidism - Past Surgical History Additional Past Surgical History: G - tube - Smoking History Smoking history: Never smoked Have you smoked in the past 12 months: No - Alcohol/Substance Use Hx Alcohol Use: No History of Substance Use: reports: None - Social History Usual Living Arrangement: Yes: With Spouse ADL: Independent 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, 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[employer] , [place] History of Recent Travel: No Home Medications - Allergies Allergies/Adverse Reactions: Allergies Allergy/AdvReac Type Severity Reaction Status Date / Time tamsulosin HCl [From Flomax] AdvReac Intermediate dizziness Verified 12/13/18 22 :30 - Home Medications Home Medications: Ambulatory Orders Aspirin [ASA -] 81 mg PO DAILY 10/20/15 Cholecalciferol (Vitamin D3) [Vitamin D3] 2,000 unit PO DAILY 10/20/15 Cyanocobalamin (Vitamin B-12) [Vitamin B-12] 1,000 mcg PO DAILY 10/20/15 Levothyroxine Sodium [Unithroid] 125 mcg PO DAILY 08/12/16 Rosuvastatin Calcium [Crestor] 10 mg PO HS 10/20/15 Acetaminophen [Tylenol .Regular Strength -] 650 mg PO Q6H PRN tablet 07/06/17 Midodrine HCl [Proamatine -] 5 mg PO BID-MID PRN #60 tablet 07/06/17 Albuterol 0.083% Nebulizer Malissa [Ventolin 0.083% Nebulizer Soln -] 1 amp NEB PRN PRN 01/16/18 Amlodipine Besylate [Norvasc -] 5 mg PO DAILY 01/16/18 Fluticasone Prop 0.05% Nasal [Flonase -] 2 spray NS DAILY PRN 01/16/18 Sodium Chloride 1,000 mg MC DAILY 01/16/18 Acetaminophen [Tylenol .Regular Strength -] 650 mg PO Q4H PRN tablet 01/21/18 Albuterol 2.5/Ipratropium 0.5 [Duoneb -] 1 amp NEB Q4H PRN amp 01/21/18 Gabapentin Liquid [Neurontin Oral Liquid -] 100 mg GT TID #120 ml 02/19/18 Nystatin/Triamcinolone Top Cr [Mycolog II -] 1 applic TP BID #45 g 02/19/18 Amoxicillin/Potassium Clav [Augmentin ES Suspension] 600 mg PO BID #30 ml Amox-Tr/K Cl [Augmentin - 875Mg Tablet] 1 tab GT BID #14 tablet 09/30/18 Lidocaine 5% Patch [Lidoderm -] 1 patch TP DAILY #30 patch 09/30/18 Family Medical History Family History: Denies Review of Systems - Review of Systems Constitutional: reports: Fever Eyes: reports: No Symptoms HENT: reports: No Symptoms Neck: reports: No Symptoms Cardiovascular: reports: No Symptoms Respiratory: reports: Cough, Hemoptysis Gastrointestinal: reports: No Symptoms Genitourinary: reports: No Symptoms Musculoskeletal: reports: No Symptoms Integumentary: reports: No Symptoms Neurological: reports: No Symptoms Endocrine: reports: No Symptoms Hematology/Lymphatic: reports: No Symptoms Psychiatric: reports: No Symptoms Physical Examination Vital Signs: Vital Signs Temperature 98.4 F 12/13/18 22:30 Pulse Rate 80 12/13/18 22:30 Respiratory Rate 20 12/13/18 22:30 Blood Pressure 136/81 12/13/18 22:30 O2 Sat by Pulse Oximetry (%) 95 12/13/18 22:30 Constitutional: Yes: No Distress, Calm Eyes: Yes: Conjunctiva Clear, EOM Intact HENT: Yes: Atraumatic, Normocephalic Neck: Yes: Supple, Trachea Midline Cardiovascular: Yes: Regular Rate and Rhythm Respiratory: Yes: CTA Bilaterally, Rales Gastrointestinal: Yes: Normal Bowel Sounds, Soft, Other (+ G-tube) Musculoskeletal: Yes: WNL Extremities: Yes: WNL Edema: No Neurological: Yes: Alert, Oriented Labs: CBC, BMP 12/14/18 00:45 12/14/18 00:45 Imaging - Results Cat Scan: Report Reviewed (CTA chest: Negative for pulmonary embolus and thoracic aortic aneurysm or dissection. Extensive infiltrates/pneumonia is noted in the right lower lobe and right middle lobe. There is also a milder infiltrate in the left lower lobe.) EKG: Report Reviewed (NSR, no acute changes) Other: Report Reviewed (CBC: no elevated WBC count CMP: BUN 36, Cr 0.8 Trop < .02, no EKG changes) Problem List - Problems (1) Aspiration pneumonia Code(s): J69.0 - PNEUMONITIS DUE TO INHALATION OF FOOD AND VOMIT Qualifiers: Aspiration pneumonia type: unspecified Laterality: bilateral Lung location: lower lobe of lung Qualified Code(s): J69.0 - Pneumonitis due to inhalation of food and vomit (2) Acute prerenal azotemia Code(s): R79.89 - OTHER SPECIFIED ABNORMAL FINDINGS OF BLOOD CHEMISTRY (3) COPD (chronic obstructive pulmonary disease) Code(s): J44.9 - CHRONIC OBSTRUCTIVE PULMONARY DISEASE, UNSPECIFIED (4) History of throat cancer Code(s): Z85.819 - PRSNL HX OF MALIG NEOPLM OF [facility] SITE LIP,ORAL CAV,& PHARYNX (5) HLD (hyperlipidemia) Code(s): E78.5 - HYPERLIPIDEMIA, UNSPECIFIED Qualifiers: Hyperlipidemia type: pure hypercholesterolemia Qualified Code(s): E78.00 - Pure hypercholesterolemia, unspecified; E78.0 - Pure hypercholesterolemia (6) HTN (hypertension) Code(s): I10 - ESSENTIAL (PRIMARY) HYPERTENSION Qualifiers: Hypertension type: essential hypertension Qualified Code(s): I10 - Essential (primary) hypertension (7) Hypothyroid Code(s): E03.9 - HYPOTHYROIDISM, UNSPECIFIED Qualifiers: Hypothyroidism type: unspecified Qualified Code(s): E03.9 - Hypothyroidism , unspecified Assessment/Plan 73 year old male with PMH of HTN, HLD, COPD, 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 # Aspiration Pneumonia CTA chest: Negative for pulmonary embolus and thoracic aortic aneurysm or dissection. Extensive infiltrates/pneumonia is noted in the right lower lobe and right middle lobe. There is also a milder infiltrate in the left lower lobe. CBC: no elevated WBC count Trop <.02, no EKG changes In Ed given Clindamycin x1 - continue with nebs - Tylenol 650mg q 4 hours - follow up ID consult in AM - will follow repeat cbc # Pre-renal Azotemia CMP: BUN 36, Cr 0.8 - In ED given 500 mL IVF - continue with IVF x 24 hours - follow up BMP in AM # COPD - continue with nebulizer - monitor spo2 - O2 via NC 2-3 L/min as needed #HTN - bp stable at this time, as per patient has episode of hypotension and hypertension - recently been off medication #HLD - continue with Rosuvastatin Calcium 10 mg PO HS #Hypothyrodism - Levothyroxine Sodium 125 mcg PO DAILY #Anemia - hgb: 10.7 baseline - monitor H/H trend Visit type - Emergency Visit Emergency Visit: Yes Care time: The patient presented to the Emergency Department on the above date and was hospitalized for further evaluation of their emergent condition. - New Patient This patient is new to me today: Yes Date on this admission: 12/14/18 - Critical Care Critical Care patient: No
[2018-12-14] MEDS ORDERED: ALBUTEROL SO4 0.083% IH SOL 2.5 MG/3 ML VIAL.NEB. NEB PRN (04:03)
[2018-12-14] MEDS ORDERED: ACETAMINOPHEN 325 MG TABLET (FP) PO PRN (04:03)
[2018-12-14] MEDS ORDERED: IPRATROPIUM BR 0.02% 0.5 MG/2.5 ML VIAL.NEB. NEB PRN (04:05)
[2018-12-14] MEDS ORDERED: SODIUM CHLORIDE 1,000 ML IV SCH (04:15)
[2018-12-14] MEDS: GABAPENTIN 250 MG/5 ML ORAL SOLUTION, 470 ML BOTTLE GT SCH ×3 (09:47→22:40)
[2018-12-14] MEDS: LEVOTHYROXINE NA 125 MCG TABLET (FP) PO SCH (09:48)
--- NOTE | 2018-12-14 10:15 | EKG ---
Test Reason : Blood Pressure : / mmHG Vent. Rate : 080 BPM Atrial Rate : 080 BPM P-R Int : 172 ms QRS Dur : 092 ms QT Int : 396 ms P-R-T Axes : 023 -07 042 degrees QTc Int : 456 ms NORMAL SINUS RHYTHM NORMAL ECG WHEN COMPARED WITH ECG OF 16-NOV-2018 21:49, NO SIGNIFICANT CHANGE WAS FOUND Confirmed by ROBEL VANEGAS MD ([id number]) on 12/14/2018 10:15:10 AM Referred By: Confirmed By:ROBEL VANEGAS MD
--- NOTE | 2018-12-14 10:18 | CONSULT ---
Consult Consult Specialty:: Infectious disease Referred by:: NURA Brady Reason for Consultation:: aspiration PNA - History of Present Illness Chief Complaint: Worsening hempotysis X10 days. Tmax 103 x 3 days History of Present Illness: Pt is a 73 yo M with PMHx of HTN, HLD, COPD, pharyngeal CA (last radiation in 2011), recurrent aspiration pneumonia with G tube, hypothyroidism, anemia presenting from home with 10 day hx of worsening hemoptysis and Tmax 103 noted 3 days ago. Pt has hemoptysis at baseline since his diagnosis of pharyngeal cancer and GT insertion June 2017, with ranges of clear sputum to yellow, green and bloody intermittently. About 10 days ago he noted more frequent hemoptysis sometimes with mucus, requiring use of up to 100 tissues per day. No chest pain, no shortness of breath. The hemoptysis worsened as pt arrived at the end of a road trip in [place] requiring a return to [place]. No leg swelling, no chest pain, no orthopnea. His oxygen demand has stayed at 2L. Pt has remained on jevity feeds since 06/25 and does his own oral care, with occasional bottle cap sips of water, with no cough or choking sensation. 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 [employer] Occ alcohol intake - History Source History Provided By: Patient, Medical Record - Past Medical History Cardio/Vascular: Yes: HTN, Hyperlipdemia, Other (Autonomic dysfunction with orthostatic hypotension) Pulmonary: Yes: Cancer (pharyngeal CA (last radiation in 2011)), Pneumonia, Other (aspiration) Renal/: Yes: BPH ENT: Yes: Other (head and neck CA) Endocrine: Yes: Hypothyroidism - Alcohol/Substance Use Hx Alcohol Use: No History of Substance Use: reports: None - Smoking History Smoking history: Never smoked Have you smoked in the past 12 months: No - Social History Usual Living Arrangement: With Spouse ADL: Independent 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, 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[employer] , [employer] History of Recent Travel: No Home Medications - Allergies Allergies/Adverse Reactions: Allergies Allergy/AdvReac Type Severity Reaction Status Date / Time tamsulosin HCl [From Flomax] AdvReac Intermediate dizziness Verified 12/13/18 22 :30 - Home Medications Home Medications: Ambulatory Orders Aspirin [ASA -] 81 mg PO DAILY 10/20/15 Cholecalciferol (Vitamin D3) [Vitamin D3] 2,000 unit PO DAILY 10/20/15 Cyanocobalamin (Vitamin B-12) [Vitamin B-12] 1,000 mcg PO DAILY 10/20/15 Levothyroxine Sodium [Unithroid] 135 mcg PO DAILY 10/20/15 Rosuvastatin Calcium [Crestor] 10 mg PO HS 10/20/15 Gabapentin Liquid [Neurontin Oral Liquid -] 100 mg GT TID #120 ml 02/19/18 Family Medical History Family Hx Cancer: Mother, Father Review of Systems - Review of Systems Constitutional: reports: Chills, Fever. denies: Lethargy, Loss of Appetite HENT: reports: Difficult Swallowing Cardiovascular: denies: Chest Pain, Edema, Palpitations, Shortness of Breath Respiratory: reports: Cough, Hemoptysis. denies: SOB, SOB on Exertion Genitourinary: denies: Burning, Dysuria Neurological: denies: Change in LOC, Change in Speech Physical Exam Vital Signs: Vital Signs Temperature 97.8 F 12/14/18 06:42 Pulse Rate 92 H 12/14/18 06:42 Respiratory Rate 20 12/14/18 06:42 Blood Pressure 150/99 12/14/18 06:50 O2 Sat by Pulse Oximetry (%) 95 12/14/18 05:31 Constitutional: Yes: No Distress, Calm Eyes: Yes: Conjunctiva Clear, EOM Intact, PERRL. No: Sclera Icterus HENT: Yes: Atraumatic. No: Thrush, Tonsillar Exudate Neck: Yes: Supple Cardiovascular: Yes: Regular Rate and Rhythm, S1, S2 Respiratory: Yes: Rales (L>R base) Gastrointestinal: Yes: Hypoactive Bowel Sounds, Other (GTube LUQ) Musculoskeletal: No: Joint Swelling Edema: No Peripheral Pulses WNL: Yes Neurological: Yes: Alert, Oriented ...Motor Strength: WNL Psychiatric: Yes: Alert, Oriented Labs: CBC, BMP 12/14/18 00:45 12/14/18 00:45 Imaging - Results Chest X-ray: Report Reviewed, Image Reviewed (New infiltrats R base, chronic scarring/atelectasis) Cat Scan: Image Reviewed (CTA- No PE, mild midsternal lymphadenopathy 1.5 pretracheal nodes, extensive R PNA (patchy consolidation.) Assessment/Plan Ambulatory Orders Aspirin [ASA -] 81 mg PO DAILY 10/20/15 Cholecalciferol (Vitamin D3) [Vitamin D3] 2,000 unit PO DAILY 10/20/15 Cyanocobalamin (Vitamin B-12) [Vitamin B-12] 1,000 mcg PO DAILY 10/20/15 Levothyroxine Sodium [Unithroid] 135 mcg PO DAILY 10/20/15 Rosuvastatin Calcium [Crestor] 10 mg PO HS 10/20/15 Gabapentin Liquid [Neurontin Oral Liquid -] 100 mg GT TID #120 ml 02/19/18 Current Medications Acetaminophen (Tylenol -) 650 mg PO Q4H PRN PRN Reason: FEVER Albuterol Sulfate (Ventolin 0.083% Nebulizer Soln -) 1 amp NEB PRN PRN PRN Reason: Dyspnea Gabapentin (Neurontin Oral Liquid -) 100 mg GT TID [facility] Last Admin: 12/14/18 09:47 Dose: Not Given Heparin Sodium (Porcine) (Heparin -) 5,000 unit SQ BID [facility] Sodium Chloride (Normal Saline -) 1,000 mls @ 50 mls/hr IV ASDIR [facility] Stop: 12/15/18 04:07 Last Admin: 12/14/18 04:59 Dose: 50 mls/hr Ampicillin Sodium/Sulbactam (Sodium 1.5 gm/ Sodium Chloride) 100 mls @ 200 mls/ hr IVPB Q6H-IV [facility] Last Admin: 12/14/18 13:17 Dose: 200 mls/hr Ipratropium Ranier (Atrovent 0.02% Nebulizer -) 1 amp NEB Q6H PRN PRN Reason: WHEEZING Levothyroxine Sodium (Synthroid -) 125 mcg PO DAILY@0700 [facility] Last Admin: 12/14/18 09:48 Dose: Not Given Rosuvastatin Calcium (Crestor -) [address] [facility] Assessment/Plan: Pt is a 73 yo M with PMHx of HTN, HLD, COPD, pharyngeal CA (last radiation in 2011), recurrent aspiration pneumonia with G tube, hypothyroidism, anemia presenting from home with 10 day hx of worsening hemoptysis and Tmax 103 noted 3 days ago. HTN, HLD, COPD, pharyngeal CA (last radiation in 2011), recurrent aspiration pneumonia with G tube, hypothyroidism, anemia worsening hemoptysis Tmax 103 Possible aspiration PNA Plan: IV unasyn 1.5g Q6H Stop clindamycin Follow cultures Sputum cx pending Legionella Ag Supplemental Oxygen Other mx per primary team Visit type - Emergency Visit Emergency Visit: Yes ED Registration Date: 12/14/18 Care time: The patient presented to the Emergency Department on the above date and was hospitalized for further evaluation of their emergent condition. - New Patient This patient is new to me today: Yes Date on this admission: 12/14/18 - Critical Care Critical Care patient: No ATTENDING PHYSICIAN STATEMENT I saw and evaluated the patient. I reviewed the resident's note and discussed the case with the resident. I agree with the resident's findings and plan as documented. SUBJECTIVE: OBJECTIVE: ASSESSMENT AND PLAN:
--- NOTE | 2018-12-14 10:22 | CONSULT ---
Admitting History and Physical - Primary Care Physician PCP: Fern Murillo - Admission History of Present Illness: Pt is a 73 yo M, with PMH of HTN, HLD, COPD (home 2L NC, frequent aspiration pneumonia with G tube), hypothyroidism, anemia, and pharyngeal CA (last radiation 2011), who is presenting with worsening sputum production and hemoptysis that is heavier and longer in duration than usual. Pt states he has been coughing up "globs" of blood, which is more than his usual "blood mixed into the sputum". Pt denies eating or drinking anything since his G-tube was placed. Pt took a long car ride to [place] just preceding the start of his symptoms. Pt also endorses fever of 103 last night, which resolved with tylenol. CTA chest: FINDINGS: Negative for pulmonary embolus. Negative for thoracic aortic aneurysm or dissection. Extensive infiltrates/pneumonia is noted in the right lower lobe and right middle lobe. There is also a milder infiltrate in the left lower lobe Last seen by me 01/19/18- Pt taking sips of water PO, AMA.He was told not to by [employer], but took a sip in front of me, saying his mouth was dry. Reviewed with him that he is likely aspirating silently on thin water, with greater risk if he is not performing frequent mouth care to reduce build up of oral bacteria. [facility] MBS reviewed. Voice is strong and not wet or gurgly. Suggest Mouth care TID Continuation of swallowing exercises to reduce risk of aspiration on secretions. NPO including PO medication and sips of water. Consider all Meds via PEG for now. Pt instructed again to Sip water/swish/spit- Do not swallow water. Recurrent PNA possibly sec to aspiration. Pt requires TF for total nutritional intake/hydration/medication at this time. Pt states he "only drinks a capful of water", no longer attends swallowing tx at [facility]. They continued to recommend strict NPO when he was d/c'd from tx. He reports a lot of phlegm from his TF. He's says he has had recurrent admissions, for PNA and a fall. He denies reclining for at least 2 hours after GT feedings, with feedings at 6/ 12/6 daily.He says if he doesnt wait 2 hours, the feeding comes out of his mouth. He sits up in a recliner and now SLEEPS FLAT ON THE FLOOR WITH A SMALL PILLOW since the fall. When he slept on a bed, he slept flat with a small pillow. I suggested a hospital bed to elevate his upper body but he said that would be uncomfortable. History Source: Patient Limitations to Obtaining History: No Limitations - Past Medical History Cardiovascular: Yes: HTN, Hyperlipdemia, Other (Autonomic dysfunction with orthostatic hypotension) Pulmonary: Yes: Cancer (pharyngeal CA (last radiation in 2011)), Pneumonia, Other (aspiration) Renal/: Yes: BPH Heme/Onc: Yes: Anemia ENT: Yes: Other (head and neck CA) Endocrine: Yes: Hypothyroidism - Past Surgical History Additional Past Surgical History: G - tube - Smoking History Smoking history: Never smoked Have you smoked in the past 12 months: No - Alcohol/Substance Use Hx Alcohol Use: No History of Substance Use: reports: None - Social History ADL: Independent 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 Negative for thoracic aortic aneurysm or dissection. Extensive infiltrates/ pneumonia is noted in the right lower lobe and right middle lobe. There is also a milder infiltrate in the left lower lobe) - General Mental Status: Alert and Oriented, Awake and Alert, Able to Follow Commands Attention: Intact Ability to Follow Directions: Good Head/Neck Control: Good - Hearing Hearing: Functional Speech Evaluation - Communication Primary Language: BELARUSIAN Communication: Yes: Within Normal Limits Oral Expression Ability: Yes: No Impairment - Speech Production Able to Make Needs Known: Yes: WNL Intelligibility: Yes: WNL - Speech Characteristics Voice Loudness: Normal Voice Pitch: Yes: Normal Voice Phonatory-based Quality: Yes: Normal Speech Pattern: Normal Speech Clarity: < 100% Nasal Resonance: Normal Articulation: Yes: Precise Rate of Speech: Intact - Language/Auditory Comprehension Follows: Yes: 1 Stage Simple Commands Observation: Able to respond to yes/no queries: Yes, Yes/No Confusion: No, Comprehends Conversational Speech: Yes - Language/Verbal Expression Able to Respond to Simple Queries: Yes: WNL Able to Communicate Wants and Needs: Yes: WNL Functional Communication Status: Yes: WNL - Swallow Evaluation/Bedside Assessment Current Nutritional Intake: NPO, G Tube Oral Secretions: Yes: WFL Dentition: Yes: Adequate Facial Symmetry at Rest: Symmetrical Facial Symmetry on Retraction: Symmetrical Facial Movement: Controlled Sensation: Normal Against Resistance Opening: Normal Against Resistance Closing: Normal Pucker Lips: Normal Smile: Normal Lingual Movement: Normal, Symmetric Lingual Speed of Movement: Normal Lingual Movement Strgth Against Opposition: Normal Lingual Movement Characteristics: Normal Velopharyngeal Movement: Normal Laryngeal Elevation: Impaired A-P Transit: WFL Recommendations - Speech Evaluation, Impression/Plan Impression: Pt well known to me with h/o Dysphagia, NPO, GT feedings, with repeat admission for PNA. CT- infiltrates.Voice is strong. Doubt aspirating saliva. When seen by Pulmonary in September 2018-. BILATERAL PNEUMONIA LIKELY ASPIRATION improving. HEMOPTYSIS SECONDARY TO PNEUMONIA IMPROVING. COPD. H/O ORAL PHARYNGEAL CA S/P RT. H/O ASPIRATION S/P GT. AUTONOMIC DYSFUNCTION. DM. BPH-Pending Pulmonary consult. Related to sleeping flat at home? Consider hospital bed, with consistent HOB elevation and continue to professor of counseling pt on eliminating "capfuls of water". Pt with poor compliance for me in the past. - Dysphagia Impressions/Plan Swallowing Skills: Impaired Dysphagia Impressions: Suspect Aspiration (retrograde from TF, anterograde fron "capfuls of water") *Silent aspiration: cannot be R/O at bedside Dysphagia Treatment Plan: Other (HOB elevated at all times) Recommendations: Other (Mouth care tid.)
[2018-12-14] MEDS ORDERED: AMPICILLIN NA/SULBACTAM NA 1.5 GM in SODIUM CHLORIDE 100 ML IVPB SCH (11:45)
[2018-12-14] MEDS: HEPARIN NA (PORCINE) 5,000 UNITS/ML 1ML VIAL SQ SCH ×3 (12:09→22:42)
[2018-12-14] MEDS ORDERED: SODIUM CHLORIDE 100 ML IVPB ONE ×3 (13:13→22:18)
[2018-12-14] MEDS ORDERED: AMPICILLIN NA/SULBACTAM NA 1.5 GM VIAL ONE ×3 (13:13→22:17)
[2018-12-14] MEDS: AMPICILLIN NA/SULBACTAM NA 1.5 GM in SODIUM CHLORIDE 100 ML IVPB SCH ×3 (13:17→22:39)
--- NOTE | 2018-12-14 13:25 | CON.PULM ---
Consult Consult Specialty:: PULMONARY Referred by:: Dr Murillo Reason for Consultation:: hemoptysis - History of Present Illness Chief Complaint: hemoptysis History of Present Illness: 73yo male with h/o HTN, hyperlipidemia, COPD, pharyngeal ca s/p RT, hypothyroidism, recurrent aspiration pneumonia s/p G tube placement, known from prior hospitalizations who was admitted with fevers and hemoptysis. Denies chest pain or palpitations. Reports compliance with NPO. Hemoptysis described as dark. He feeds himself via G tube 3x/day. Does report some cough and congestion after feeding himself. Reports good mouth care. - History Source History Provided By: Patient, Medical Record Limitations to Obtaining History: No Limitations - Past Medical History Cardio/Vascular: Yes: HTN, Hyperlipdemia, Other (Autonomic dysfunction with orthostatic hypotension) Pulmonary: Yes: Cancer (pharyngeal CA (last radiation in 2011)), Pneumonia, Other (aspiration) Renal/: Yes: BPH ENT: Yes: Other (head and neck CA) Endocrine: Yes: Hypothyroidism - Alcohol/Substance Use Hx Alcohol Use: No History of Substance Use: reports: None - Smoking History Smoking history: Never smoked Have you smoked in the past 12 months: No - Social History Usual Living Arrangement: With Spouse ADL: Independent 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, 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[employer] , [employer] History of Recent Travel: No Home Medications - Allergies Allergies/Adverse Reactions: Allergies Allergy/AdvReac Type Severity Reaction Status Date / Time tamsulosin HCl [From Flomax] AdvReac Intermediate dizziness Verified 12/13/18 22 :30 - Home Medications Home Medications: Ambulatory Orders Aspirin [ASA -] 81 mg PO DAILY 10/20/15 Cholecalciferol (Vitamin D3) [Vitamin D3] 2,000 unit PO DAILY 10/20/15 Cyanocobalamin (Vitamin B-12) [Vitamin B-12] 1,000 mcg PO DAILY 10/20/15 Levothyroxine Sodium [Unithroid] 135 mcg PO DAILY 10/20/15 Rosuvastatin Calcium [Crestor] 10 mg PO HS 10/20/15 Gabapentin Liquid [Neurontin Oral Liquid -] 100 mg GT TID #120 ml 02/19/18 Review of Systems - Review of Systems Constitutional: reports: Chills, Fever, Weakness Eyes: denies: Recent Change in Vision HENT: denies: Nasal Congestion, Throat Pain Neck: denies: Stiffness, Tenderness Cardiovascular: denies: Chest Pain, Shortness of Breath Respiratory: reports: Cough, Hemoptysis. denies: Wheezing Gastrointestinal: denies: Abdominal Pain, Nausea, Vomiting Genitourinary: denies: Dysuria, Hematuria Neurological: denies: Dizziness, Headache Endocrine: denies: Unexplained Weight Loss Physical Exam Vital Sings: Vital Signs Temperature 97.8 F 12/14/18 06:42 Pulse Rate 92 H 12/14/18 06:42 Respiratory Rate 20 12/14/18 06:42 Blood Pressure 150/99 12/14/18 06:50 O2 Sat by Pulse Oximetry (%) 95 12/14/18 05:31 Constitutional: Yes: No Distress, Calm Eyes: Yes: Conjunctiva Clear, EOM Intact HENT: Yes: Atraumatic, Normocephalic Neck: Yes: Supple, Trachea Midline Cardiovascular: Yes: Regular Rate and Rhythm Respiratory: Yes: Diminished (decreased breath sounds at the bases), Rales ...Clubbing: No Gastrointestinal: Yes: Normal Bowel Sounds, Soft. No: Tenderness Edema: No Neurological: Yes: Alert, Oriented Labs: CBC, BMP 12/14/18 00:45 12/14/18 00:45 Imaging - Results Chest X-ray: Report Reviewed, Image Reviewed Cat Scan: Report Reviewed, Image Reviewed (extensive right sided infiltrates) Problem List - Problems (1) Aspiration pneumonia Code(s): J69.0 - PNEUMONITIS DUE TO INHALATION OF FOOD AND VOMIT Qualifiers: Aspiration pneumonia type: unspecified Laterality: bilateral Lung location: lower lobe of lung Qualified Code(s): J69.0 - Pneumonitis due to inhalation of food and vomit (2) Hemoptysis Code(s): R04.2 - HEMOPTYSIS Assessment/Plan Pneumonia likely Aspiration Hemoptysis likely from above COPD h/o Pharyngeal Ca s/p RT HTN Hyperlipidemia - IV antibiotics - f/u cultures including sputum - quantify hemoptysis - inhaled bronchodilators - O2 to keep SpO2 >90% - can defer systemic steroids at this time - enteral feeds - aspiration precautions - mouth care - DVT prophylaxis Thank you for this consult Alexis Li MD
[2018-12-14 13:46] LABS: HEMATOCRIT 34.5 % (35.4-49); HEMOGLOBIN 11.3 GM/dL (11.7-16.9); MCH 29.6 pg (25.7-33.7); MCHC 32.8 g/dl (32.0-35.9); MEAN CELL VOLUME 90.4 fl (80-96); MEAN PLT VOLUME 7.8 fl (7.5-11.1); PLATELET COUNT 251 K/MM3 (134-434); RBC 3.82 M/mm3 (4.00-5.60); RDW 14.2 % (11.9-15.9); WHITE BLOOD COUNT 7.6 K/mm3 (4.0-10.0)
--- NOTE | 2018-12-14 13:52 | PN ---
Progress Note, Physician Chief Complaint: patient seen and examined admitted for hemoptysis - Current Medication List Current Medications: Active Medications Acetaminophen (Tylenol -) 650 mg PO Q4H PRN PRN Reason: FEVER Albuterol Sulfate (Ventolin 0.083% Nebulizer Soln -) 1 amp NEB PRN PRN PRN Reason: Dyspnea Gabapentin (Neurontin Oral Liquid -) 100 mg GT TID [facility] Last Admin: 12/14/18 09:47 Dose: Not Given Heparin Sodium (Porcine) (Heparin -) 5,000 unit SQ BID [facility] Sodium Chloride (Normal Saline -) 1,000 mls @ 50 mls/hr IV [facility] Stop: 12/15/18 04:07 Last Admin: 12/14/18 04:59 Dose: 50 mls/hr Ampicillin Sodium/Sulbactam (Sodium 1.5 gm/ Sodium Chloride) 100 mls @ 200 mls/ hr IVPB Q6H-IV [facility] Last Admin: 12/14/18 13:17 Dose: 200 mls/hr Ipratropium [place] (Atrovent 0.02% Nebulizer -) 1 amp NEB Q6H PRN PRN Reason: WHEEZING Levothyroxine Sodium (Synthroid -) 125 mcg PO DAILY@0700 [facility] Last Admin: 12/14/18 09:48 Dose: Not Given Rosuvastatin Calcium (Crestor -) 10 mg PO [facility] - Objective Vital Signs: Vital Signs Temperature 97.8 F 12/14/18 06:42 Pulse Rate 92 H 12/14/18 06:42 Respiratory Rate 20 12/14/18 06:42 Blood Pressure 150/99 12/14/18 06:50 O2 Sat by Pulse Oximetry (%) 95 12/14/18 05:31 Constitutional: Yes: Calm Neck: Yes: Trachea Midline Cardiovascular: Yes: Regular Rate and Rhythm, S1, S2 Respiratory: Yes: Diminished Gastrointestinal: Yes: Normal Bowel Sounds, Soft, Other (g tube) Edema: No Neurological: Yes: Alert, Oriented Labs: CBC, BMP 12/14/18 12:42 INR, PTT INR 1.05 (0.83-1.09) 12/14/18 00:45 Assessment/Plan hemoptysis monitor h/h pulm eval sputum culture iv abx ID on board chest cta no PE extensive right side pna hypothyroid synthroid check tsh
[2018-12-14 14:18] LABS: BLOOD UREA NITROGEN 22.5 mg/dL (7-18); CALCIUM 8.9 mg/dL (8.5-10.1); CREATININE 0.7 mg/dL (0.55-1.3)
[2018-12-14] MEDS: amLODIPine BESYLATE 10 MG TABLET (FP) PO ONE ×2 (14:35→15:58)
[2018-12-14] MEDS ORDERED: amLODIPine BESYLATE 2.5 MG TABLET (FP) PO ONE (15:50)
--- NOTE | 2018-12-14 15:50 | CON.CARD ---
Consult Consult Specialty:: Cardiology Referred by:: Fern Murillo MD Reason for Consultation:: Cardiac evaluation - History of Present Illness Chief Complaint: Hemoptysis History of Present Illness: Patient is a 73 year old male well known to our office (sees Dr. Kirstin Guardado ) with underlying history of CAD, nonobstructive on coronary angiography, angina pectoris, diastolic LV dysfunction with clinical class 0 NYHA classification LV failure, HTN, hypercholesterolemia, hypothyroidism, throat CA post radiation therapy and profound autonomic dysfunction with recurrent syncope and orthostatic hypotension, aspiration pneumonia and post PEG insertion who presents with hemoptysis. He is awake and alert. He denies chest pain, shortness of breath or palpitations. He denies paroxysmal nocturnal dyspnea or orthopnea. He denies fever or chills at this time, but he does state fever up to 103 over the weekend ad took Tylenol. He denies nausea, vomiting, diarrhea or abdominal pain. He denies headache or lightheadedness. - History Source History Provided By: Patient, Medical Record Limitations to Obtaining History: No Limitations - Past Medical History Cardio/Vascular: Yes: CAD, CHF, HTN, Hyperlipdemia, Other (Autonomic dysfunction with orthostatic hypotension) Pulmonary: Yes: Cancer (pharyngeal CA (last radiation in 2011)), Pneumonia, Other (aspiration) Renal/: Yes: BPH ENT: Yes: Other (head and neck CA) Endocrine: Yes: Hypothyroidism - Past Surgical History Additional Surgical History: PEG - Alcohol/Substance Use Hx Alcohol Use: No History of Substance Use: reports: None - Smoking History Smoking history: Never smoked Have you smoked in the past 12 months: No - Social History Usual Living Arrangement: With Spouse ADL: Independent 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, 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[email or web address] , [employer] History of Recent Travel: No Home Medications - Allergies Allergies/Adverse Reactions: Allergies Allergy/AdvReac Type Severity Reaction Status Date / Time tamsulosin HCl [From Flomax] AdvReac Intermediate dizziness Verified 12/13/18 22 :30 - Home Medications Home Medications: Ambulatory Orders Aspirin [ASA -] 81 mg PO DAILY 10/20/15 Cholecalciferol (Vitamin D3) [Vitamin D3] 2,000 unit PO DAILY 10/20/15 Cyanocobalamin (Vitamin B-12) [Vitamin B-12] 1,000 mcg PO DAILY 10/20/15 Levothyroxine Sodium [Unithroid] 135 mcg PO DAILY 10/20/15 Rosuvastatin Calcium [Crestor] 10 mg PO HS 10/20/15 Gabapentin Liquid [Neurontin Oral Liquid -] 100 mg GT TID #120 ml 02/19/18 Family Medical History Family History: Denies Review of Systems - Review of Systems Constitutional: reports: Fever. denies: Chills Cardiovascular: denies: Chest Pain, Palpitations, Shortness of Breath Respiratory: reports: Hemoptysis. denies: Cough, Orthopnea, PND, SOB, SOB on Exertion, Wheezing Gastrointestinal: denies: Abdominal Pain, Constipation, Diarrhea, Melena, Nausea , Rectal Bleeding, Vomiting Genitourinary: denies: Dysuria, Hematuria Musculoskeletal: denies: Back Pain, Joint Pain Neurological: denies: Dizziness, Headache, Seizure, Syncope Vital Signs: Vital Signs Temperature 97.8 F 12/14/18 06:42 Pulse Rate 92 H 12/14/18 06:42 Respiratory Rate 20 12/14/18 06:42 Blood Pressure 150/99 12/14/18 06:50 O2 Sat by Pulse Oximetry (%) 95 12/14/18 05:31 Eyes: Yes: PERRL Neck: Yes: Supple Respiratory: Yes: Diminished Gastrointestinal: Yes: Normal Bowel Sounds, Soft. No: Tenderness Cardiovascular: Yes: Regular Rate and Rhythm JVD: No PMI: Non-Displaced Heart Sounds: Yes: S1, S2. No: Gallop Murmur: No: Systolic Murmur Edema: No - Other Data Labs, Other Data: CBC, BMP 12/14/18 12:42 12/14/18 12:42 INR, PTT INR 1.05 (0.83-1.09) 12/14/18 00:45 Troponin, BNP 12/14/18 00:45 Troponin I < 0.02 B-Natriuretic Peptide 333.4 H Normal sinus rhythm with no ST-T abnormality Problem List - Problems (1) Aspiration pneumonia Code(s): J69.0 - PNEUMONITIS DUE TO INHALATION OF FOOD AND VOMIT Qualifiers: Aspiration pneumonia type: unspecified Laterality: bilateral Lung location: lower lobe of lung Qualified Code(s): J69.0 - Pneumonitis due to inhalation of food and vomit (2) COPD (chronic obstructive pulmonary disease) Code(s): J44.9 - CHRONIC OBSTRUCTIVE PULMONARY DISEASE, UNSPECIFIED (3) Hemoptysis Code(s): R04.2 - HEMOPTYSIS (4) History of throat cancer Code(s): Z85.819 - PRSNL HX OF MALIG NEOPLM OF UNSP SITE LIP,ORAL CAV,& PHARYNX (5) Aspiration into respiratory tract Code(s): T17.908A - UNSP FB IN RESP TRACT, PART UNSP CAUSING OTH INJURY, INIT Qualifiers: Encounter type: initial encounter Qualified Code(s): T17.908A - Unspecified foreign body in respiratory tract, part unspecified causing other injury, initial encounter (6) Autonomic postural hypotension Code(s): I95.1 - ORTHOSTATIC HYPOTENSION (7) Benign prostatic hypertrophy Code(s): N40.0 - BENIGN PROSTATIC HYPERPLASIA WITHOUT LOWER URINRY TRACT SYMP (8) CAD (coronary artery disease) Code(s): I25.10 - ATHSCL HEART DISEASE OF [place] CORONARY ARTERY W/O ANG PCTRS Qualifiers: Coronary Disease-Associated Artery/Lesion type: [place] artery [place] vs. transplanted heart: [place] heart Associated angina: without angina Qualified Code(s): I25.10 - Atherosclerotic heart disease of [place] coronary artery without angina pectoris (9) Carotid stenosis Code(s): I65.29 - OCCLUSION AND STENOSIS OF UNSPECIFIED CAROTID ARTERY (10) HLD (hyperlipidemia) Code(s): E78.5 - HYPERLIPIDEMIA, UNSPECIFIED Qualifiers: Hyperlipidemia type: pure hypercholesterolemia Qualified Code(s): E78.00 - Pure hypercholesterolemia, unspecified; E78.0 - Pure hypercholesterolemia (11) HTN (hypertension) Code(s): I10 - ESSENTIAL (PRIMARY) HYPERTENSION Qualifiers: Hypertension type: essential hypertension Qualified Code(s): I10 - Essential (primary) hypertension (12) Hypothyroid Code(s): E03.9 - HYPOTHYROIDISM, UNSPECIFIED Qualifiers: Hypothyroidism type: unspecified Qualified Code(s): E03.9 - Hypothyroidism , unspecified (13) Orthostatic hypotension Code(s): I95.1 - ORTHOSTATIC HYPOTENSION (14) PNA (pneumonia) Code(s): J18.9 - PNEUMONIA, UNSPECIFIED ORGANISM Qualifiers: Pneumonia type: aspiration pneumonia (15) Renal insufficiency Code(s): N28.9 - DISORDER OF KIDNEY AND URETER, UNSPECIFIED Assessment/Plan 1. Pneumonia 2. History of syncope, orthostatic hypotension and profound autonomic dysfunction 3. HTN with labile BP 4. CAD (non-obstructive), angina pectoris 5. Diastolic dysfunction with class 0 NYHA classification heart failure 6. Hypercholesterolemia 7. Hypothyroidism 8. Head and neck CA s/p radiation therapy 9. Post PEG PLAN: 1. May use Amlodipine 2.5 mg as needed if BP is severely high 2. Monitor BP closely 3. Patient is on Northera 4. Antibiotic coverage 5. Cautious with hydration 6. Continue statin therapy Further plans are to follow Gutierrez Acevedo MD
--- NOTE | 2018-12-14 21:18 | PN ---
Teaching Attending Note Name of Resident: Katja Booth ATTENDING PHYSICIAN STATEMENT I saw and evaluated the patient. I reviewed the resident's note and discussed the case with the resident. I agree with the resident's findings and plan as documented. SUBJECTIVE: OBJECTIVE: ASSESSMENT AND PLAN: 73 Y/O MALE WITH PMH HEAD AND NECK CA ADMITTED WITH RECURRENT HEMOPTYSIS PROBABLE ASPIRATION PNEUMONIA PENDING CULTURES EMPIRIC UNASYN
[2018-12-14] MEDS ORDERED: ROSUVASTATIN CA 10 MG TABLET (FP) PO SCH (22:00)
[2018-12-15] MEDS ORDERED: AMPICILLIN NA/SULBACTAM NA 1.5 GM VIAL ONE ×4 (02:16→21:30)
[2018-12-15] MEDS ORDERED: SODIUM CHLORIDE 100 ML IVPB ONE ×4 (02:17→21:30)
[2018-12-15] MEDS: AMPICILLIN NA/SULBACTAM NA 1.5 GM in SODIUM CHLORIDE 100 ML IVPB SCH ×3 (02:22→14:39)
[2018-12-15] MEDS: LEVOTHYROXINE NA 125 MCG TABLET (FP) PO SCH (06:45)
[2018-12-15] MEDS: GABAPENTIN 250 MG/5 ML ORAL SOLUTION, 470 ML BOTTLE GT SCH ×3 (06:45→21:40)
[2018-12-15 08:26] LABS: BASO % 0.1 % (0-2.0); EOS % 3.1 % (0-4.5); HEMATOCRIT 32.7 % (35.4-49); LYMPH % 8.9 % (8-40); MCH 30.3 pg (25.7-33.7); MCHC 33.6 g/dl (32.0-35.9); MEAN CELL VOLUME 90.2 fl (80-96); MEAN PLT VOLUME 7.8 fl (7.5-11.1); MONO % 7.5 % (3.8-10.2); NEUT % 80.4 % (42.8-82.8); PLATELET COUNT 244 K/MM3 (134-434); RBC 3.63 M/mm3 (4.00-5.60); RDW 14.4 % (11.9-15.9); WHITE BLOOD COUNT 6.4 K/mm3 (4.0-10.0)
--- NOTE | 2018-12-15 10:29 | PN ---
Progress Note, Physician Chief Complaint: Pneumonia History of Present Illness: NAD in bed Denies any SOB or pain - Current Medication List Current Medications: Active Medications Acetaminophen (Tylenol -) 650 mg PO Q4H PRN PRN Reason: FEVER Albuterol Sulfate (Ventolin 0.083% Nebulizer Soln -) 1 amp NEB RQID PRN PRN Reason: Dyspnea Amlodipine Besylate (Norvasc -) 10 mg PO DAILY [facility] Atorvastatin Calcium (Lipitor -) 20 mg PO HS [facility] Gabapentin (Neurontin Oral Liquid -) 100 mg GT TID [facility] Last Admin: 12/15/18 06:45 Dose: 100 mg Heparin Sodium (Porcine) (Heparin -) 5,000 unit SQ BID [facility] Last Admin: 12/14/18 22:42 Dose: Not Given Ampicillin Sodium/Sulbactam (Sodium 1.5 gm/ Sodium Chloride) 100 mls @ 200 mls/ hr IVPB Q6H-IV [facility] Last Admin: 12/15/18 09:34 Dose: 200 mls/hr Levothyroxine Sodium (Synthroid -) 125 mcg PO DAILY@0700 [facility] Last Admin: 12/15/18 06:45 Dose: 125 mcg - Objective Vital Signs: Vital Signs Temperature 98.4 F 12/15/18 06:00 Pulse Rate 97 H 12/15/18 06:00 Respiratory Rate 20 12/15/18 06:00 Blood Pressure 152/97 12/15/18 06:00 O2 Sat by Pulse Oximetry (%) 97 12/14/18 21:00 Constitutional: Yes: Well Nourished, No Distress, Calm Cardiovascular: Yes: Regular Rate and Rhythm Respiratory: Yes: Regular, On Nasal O2 Gastrointestinal: Yes: Normal Bowel Sounds, Soft Genitourinary: Yes: WNL Musculoskeletal: Yes: WNL Extremities: Yes: WNL Edema: No Peripheral Pulses WNL: Yes Neurological: Yes: Alert, Oriented Psychiatric: Yes: Alert, Oriented Labs: CBC, BMP 12/15/18 07:26 12/14/18 12:42 INR, PTT INR 1.05 (0.83-1.09) 12/14/18 00:45 Problem List - Problems (1) Aspiration pneumonia Assessment/Plan: -ID consult -Pulmonary consult -IV abx -CT chest reviewed-extensive right sided pneumonia -Nasal O 2 to maintain SpO2>90% -Bronchodilators -Acetaminophen PRn for fever >100.0F Problems reviewed: Yes Code(s): J69.0 - PNEUMONITIS DUE TO INHALATION OF FOOD AND VOMIT Qualifiers: Aspiration pneumonia type: unspecified Laterality: bilateral Lung location: lower lobe of lung Qualified Code(s): J69.0 - Pneumonitis due to inhalation of food and vomit (2) Hemoptysis Problems reviewed: Yes Code(s): R04.2 - HEMOPTYSIS (3) History of throat cancer Problems reviewed: Yes Code(s): Z85.819 - PRSNL HX OF MALIG NEOPLM OF UNSP SITE LIP,ORAL CAV,& PHARYNX (4) Dysautonomia orthostatic hypotension syndrome Assessment/Plan: -Cardiology on board -Maintains BP with Amlodipine -Restart Northera 600 mg po TID Problems reviewed: Yes Code(s): G90.3 - MULTI-SYSTEM DEGENERATION OF THE AUTONOMIC NERVOUS SYSTEM Assessment/Plan see problem list
[2018-12-15] MEDS: HEPARIN NA (PORCINE) 5,000 UNITS/ML 1ML VIAL SQ SCH ×2 (11:00→21:37)
[2018-12-15] MEDS: amLODIPine BESYLATE 10 MG TABLET (FP) PO SCH ×2 (11:00→11:55)
--- NOTE | 2018-12-15 11:36 | PN ---
Progress Note (short form) - Note Progress Note: PULMONARY States hemoptysis slightly less. No fevers recorded. Vital Signs Period Temp Pulse Resp BP Sys/Leblanc Pulse Ox Last 24 Hr 98.1 F-98.4 F 79-97 20-20 141-198/81-121 97 Gen: NAD at rest Heart: RRR Lung: decreased breath sounds at the bases Abd: soft, nontender Ext: no edema CBC, BMP 12/15/18 07:26 12/14/18 12:42 Active Medications Acetaminophen (Tylenol -) 650 mg PO Q4H PRN PRN Reason: FEVER Albuterol Sulfate (Ventolin 0.083% Nebulizer Soln -) 1 amp NEB RQID PRN PRN Reason: Dyspnea Amlodipine Besylate (Norvasc -) 10 mg PO DAILY [facility] Atorvastatin Calcium (Lipitor -) 20 mg PO HS [facility] Gabapentin (Neurontin Oral Liquid -) 100 mg GT TID [facility] Last Admin: 12/15/18 06:45 Dose: 100 mg Heparin Sodium (Porcine) (Heparin -) 5,000 unit SQ BID [facility] Last Admin: 12/14/18 22:42 Dose: Not Given Ampicillin Sodium/Sulbactam (Sodium 1.5 gm/ Sodium Chloride) 100 mls @ 200 mls/ hr IVPB Q6H-IV [facility] Last Admin: 12/15/18 09:34 Dose: 200 mls/hr Levothyroxine Sodium (Synthroid -) 125 mcg PO DAILY@0700 [facility] Last Admin: 12/15/18 06:45 Dose: 125 mcg A/P Pneumonia likely Aspiration Hemoptysis likely from above COPD h/o Pharyngeal Ca s/p RT HTN Hyperlipidemia - IV antibiotics - f/u cultures - quantify hemoptysis - inhaled bronchodilators - O2 to keep SpO2 >90% - can defer systemic steroids at this time - enteral feeds - aspiration precautions - mouth care - DVT prophylaxis Problem List - Problems (1) Aspiration pneumonia Code(s): J69.0 - PNEUMONITIS DUE TO INHALATION OF FOOD AND VOMIT Qualifiers: Aspiration pneumonia type: unspecified Laterality: bilateral Lung location: lower lobe of lung Qualified Code(s): J69.0 - Pneumonitis due to inhalation of food and vomit (2) Hemoptysis Code(s): R04.2 - HEMOPTYSIS
--- NOTE | 2018-12-15 12:03 | PN ---
Progress Note, MANAGER RELIABILITY - Note Progress Note: Selected Entries 12/14/18 12/14/18 12/14/18 06:42 11:08 15:58 Supper Temperature 97.8 F 98.3 F 98.3 F 12/14/18 12/14/18 12/15/18 18:00 22:00 02:00 Supper NPO Temperature 98.1 F 98.4 F 98.1 F 12/15/18 06:00 Supper Temperature 98.4 F Laboratory Tests 12/15/18 07:26 WBC 6.4 Pt aware of NPO rec and HOB elevation to avoid retrograde aspiration of feedings.
--- NOTE | 2018-12-15 12:24 | PN ---
Progress Note, Physician Chief Complaint: Not in distress History of Present Illness: Patient was seen and examined. Awake and alert. Chart was reviewed Denies chest pain, SOB or palpitations - Current Medication List Current Medications: Active Medications Acetaminophen (Tylenol -) 650 mg PO Q4H PRN PRN Reason: FEVER Albuterol Sulfate (Ventolin 0.083% Nebulizer Soln -) 1 amp NEB RQID PRN PRN Reason: Dyspnea Amlodipine Besylate (Norvasc -) 10 mg PO DAILY [facility] Last Admin: 12/15/18 11:00 Dose: Not Given Atorvastatin Calcium (Lipitor -) 20 mg PO HS [facility] Gabapentin (Neurontin Oral Liquid -) 100 mg GT TID [facility] Last Admin: 12/15/18 06:45 Dose: 100 mg Heparin Sodium (Porcine) (Heparin -) 5,000 unit SQ BID [facility] Last Admin: 12/15/18 11:00 Dose: 5,000 unit Ampicillin Sodium/Sulbactam (Sodium 1.5 gm/ Sodium Chloride) 100 mls @ 200 mls/ hr IVPB Q6H-IV [facility] Last Admin: 12/15/18 09:34 Dose: 200 mls/hr Levothyroxine Sodium (Synthroid -) 125 mcg PO DAILY@0700 [facility] Last Admin: 12/15/18 06:45 Dose: 125 mcg - Objective Vital Signs: Vital Signs Temperature 98.4 F 12/15/18 06:00 Pulse Rate 97 H 12/15/18 06:00 Respiratory Rate 20 12/15/18 06:00 Blood Pressure 152/97 12/15/18 06:00 O2 Sat by Pulse Oximetry (%) 97 12/14/18 21:00 Eyes: Yes: PERRL HENT: Yes: Atraumatic Neck: Yes: Supple Cardiovascular: Yes: Regular Rate and Rhythm, S1, S2 Respiratory: Yes: Diminished Gastrointestinal: Yes: Normal Bowel Sounds, Soft. No: Tenderness Edema: No Labs: CBC, BMP 12/15/18 07:26 12/14/18 12:42 INR, PTT INR 1.05 (0.83-1.09) 12/14/18 00:45 Problem List - Problems (1) Aspiration pneumonia Code(s): J69.0 - PNEUMONITIS DUE TO INHALATION OF FOOD AND VOMIT Qualifiers: Aspiration pneumonia type: unspecified Laterality: bilateral Lung location: lower lobe of lung Qualified Code(s): J69.0 - Pneumonitis due to inhalation of food and vomit (2) COPD (chronic obstructive pulmonary disease) Code(s): J44.9 - CHRONIC OBSTRUCTIVE PULMONARY DISEASE, UNSPECIFIED (3) Hemoptysis Code(s): R04.2 - HEMOPTYSIS (4) History of throat cancer Code(s): Z85.819 - PRSNL HX OF MALIG NEOPLM OF UNSP SITE LIP,ORAL CAV,& PHARYNX (5) Aspiration into respiratory tract Code(s): T17.908A - UNSP FB IN RESP TRACT, PART UNSP CAUSING OTH INJURY, INIT Qualifiers: Encounter type: initial encounter Qualified Code(s): T17.908A - Unspecified foreign body in respiratory tract, part unspecified causing other injury, initial encounter (6) Autonomic postural hypotension Code(s): I95.1 - ORTHOSTATIC HYPOTENSION (7) Benign prostatic hypertrophy Code(s): N40.0 - BENIGN PROSTATIC HYPERPLASIA WITHOUT LOWER URINRY TRACT SYMP (8) CAD (coronary artery disease) Code(s): I25.10 - ATHSCL HEART DISEASE OF [place] CORONARY ARTERY W/O ANG PCTRS Qualifiers: Coronary Disease-Associated Artery/Lesion type: [place] artery [place] vs. transplanted heart: [place] heart Associated angina: without angina Qualified Code(s): I25.10 - Atherosclerotic heart disease of [place] coronary artery without angina pectoris (9) Carotid stenosis Code(s): I65.29 - OCCLUSION AND STENOSIS OF UNSPECIFIED CAROTID ARTERY (10) HLD (hyperlipidemia) Code(s): E78.5 - HYPERLIPIDEMIA, UNSPECIFIED Qualifiers: Hyperlipidemia type: pure hypercholesterolemia Qualified Code(s): E78.00 - Pure hypercholesterolemia, unspecified; E78.0 - Pure hypercholesterolemia (11) HTN (hypertension) Code(s): I10 - ESSENTIAL (PRIMARY) HYPERTENSION Qualifiers: Hypertension type: essential hypertension Qualified Code(s): I10 - Essential (primary) hypertension (12) Hypothyroid Code(s): E03.9 - HYPOTHYROIDISM, UNSPECIFIED Qualifiers: Hypothyroidism type: unspecified Qualified Code(s): E03.9 - Hypothyroidism , unspecified (13) Orthostatic hypotension Code(s): I95.1 - ORTHOSTATIC HYPOTENSION (14) PNA (pneumonia) Code(s): J18.9 - PNEUMONIA, UNSPECIFIED ORGANISM Qualifiers: Pneumonia type: aspiration pneumonia (15) Renal insufficiency Code(s): N28.9 - DISORDER OF KIDNEY AND URETER, UNSPECIFIED Assessment/Plan 1. Pneumonia 2. History of syncope, orthostatic hypotension and profound autonomic dysfunction 3. HTN with labile BP 4. CAD (non-obstructive), angina pectoris 5. Diastolic dysfunction with class 0 NYHA classification heart failure 6. Hypercholesterolemia 7. Hypothyroidism 8. Head and neck CA s/p radiation therapy 9. Post PEG PLAN: 1. May use Amlodipine 2.5 mg as needed if BP is severely high 2. Monitor BP closely - better today 3. Patient is on Northera for orthostatic hypotension and autonomic dysfunction 4. Antibiotic coverage 5. Cautious with hydration 6. Continue statin therapy Further plans are to follow Gutierrez Acevedo MD
--- NOTE | 2018-12-15 18:33 | PN ---
Physical Exam: SUBJECTIVE: Patient seen and examined, now eating and with humidified oxygen. Reported a nose bleed from dryness yesterday. Still with bloody sputum, occasionally with yellowish and green sputum, but unable to still quantify. No fevers,no chest pain, no increased oxygen demand. Had elevated BP overnight, no hypotension. OBJECTIVE: Vital Signs Period Temp Pulse Resp BP Sys/Leblanc Pulse Ox Last 24 Hr 97.9 F-98.4 F 78-97 18-20 141-153/74-110 97-99 Vital Signs Temp 98.2 F 12/15/18 18:00 Pulse 75 12/15/18 18:00 Resp 20 12/15/18 18:00 BP 159/103 H 12/15/18 18:00 Pulse Ox 99 12/15/18 09:00 GENERAL: The patient is awake, alert, and fully oriented, in no acute distress. On humidified O2, via NC ENT: moist mucous membranes. LUNGS: L basal crackles HEART: Regular rate and rhythm, S1, S2 ABDOMEN: Soft, nontender, nondistended, normoactive bowel sounds, LUQ Gtube EXTREMITIES: 2+ pulses, warm, well-perfused, no edema. NEUROLOGICAL: Cranial nerves II through XII grossly intact. Normal speech, gait not observed. PSYCH: Normal mood, normal affect. CBC, BMP 12/15/18 07:26 12/14/18 12:42 Laboratory Results - last 24 hr 12/15/18 12/15/18 07:26 07:26 WBC 6.4 RBC 3.63 L Hgb 11.0 L Hct 32.7 L MCV 90.2 MCH 30.3 MCHC 33.6 RDW 14.4 Plt Count 244 MPV 7.8 Absolute Neuts (auto) 5.1 Neutrophils % 80.4 Lymphocytes % 8.9 D Monocytes % 7.5 Eosinophils % 3.1 Basophils % 0.1 Nucleated RBC % 0 TSH 2.22 D Active Medications Generic Name Dose Route Start Last Admin Trade Name Freq PRN Reason Stop Dose Admin Acetaminophen 650 mg 12/14/18 04:03 Tylenol - PO Q4H PRN FEVER Albuterol Sulfate 1 amp 12/14/18 04:03 Ventolin 0.083% Nebulizer Soln - NEB RQID PRN Dyspnea Amlodipine Besylate 10 mg 12/15/18 10:00 12/15/18 11:00 Norvasc - PO Not Given DAILY [facility] Atorvastatin Calcium 20 mg 12/15/18 22:00 Lipitor - PO HS L[facility]LE Gabapentin 100 mg 12/14/18 06:00 12/15/18 14:38 Neurontin Oral Liquid - GT 100 mg TID LITTLE Administration Heparin Sodium (Porcine) 5,000 unit 12/14/18 10:00 12/15/18 11:00 Heparin - SQ 5,000 unit BID LITTLE Administration Ampicillin Sodium/Sulbactam 100 mls @ 200 mls/hr 12/14/18 12:00 12/15/18 14: 39 Sodium 1.5 gm/ Sodium Chloride IVPB 200 mls/hr Q6H-IV [facility] Administration Levothyroxine Sodium 125 mcg 12/14/18 07:00 12/15/18 06:45 Synthroid - PO 125 mcg DAILY@0700 [facility] Administration (Non-Formulary) 2 each 12/15/18 18:26 Northera 300 Mg PO Capsule 0700,1300,1900 [facility] Ambulatory Orders Aspirin [ASA -] 81 mg PO DAILY 10/20/15 Cholecalciferol (Vitamin D3) [Vitamin D3] 2,000 unit PO DAILY 10/20/15 Cyanocobalamin (Vitamin B-12) [Vitamin B-12] 1,000 mcg PO DAILY 10/20/15 Levothyroxine Sodium [Unithroid] 135 mcg PO DAILY 10/20/15 Rosuvastatin Calcium [Crestor] 10 mg PO HS 10/20/15 Gabapentin Liquid [Neurontin Oral Liquid -] 100 mg GT TID #120 ml 02/19/18 Microbiology 12/14/18 14:30 Sputum - Expectorated Sputum Culture - Preliminary Non Lactose Fermenting Gnb 12/14/18 00:45 Blood - Peripheral Venous Blood Culture - Preliminary NO GROWTH OBTAINED AFTER 24 HOURS, INCUBATION TO CONTINUE FOR 4 DAYS. 12/14/18 00:45 Blood - Peripheral Venous Blood Culture - Preliminary NO GROWTH OBTAINED AFTER 24 HOURS, INCUBATION TO CONTINUE FOR 4 DAYS. 12/14/18 14:30 Urine For Antigen Detection Legionella Antigen - Final 12/14/18 14:30 Urine For Antigen Detection Streptococcus pneumoniae Antigen (M - Final ASSESSMENT/PLAN: Pt is a 73 yo M with PMHx of HTN, HLD, COPD, pharyngeal CA (last radiation in 2011), recurrent aspiration pneumonia with G tube, hypothyroidism, anemia presenting from home with 10 day hx of worsening hemoptysis and Tmax 103 noted 3 days prior to presentation HTN, HLD, COPD, pharyngeal CA (last radiation in 2011), recurrent aspiration pneumonia with G tube, hypothyroidism, anemia worsening hemoptysis Tmax 103 Possible aspiration PNA Plan: Cont IV unasyn 1.5g Q6H (12/14/18)- day 2 received dose of clindamycin bld cultures-ve Sputum cx prelim with non lactose fermenting G-ve, pending spp and sensitivities Legionella Ag--ve Supplemental Oxygen Other mx per primary team D/W Dr Jaquan Booth MD, PGY 3 Visit type - Emergency Visit Emergency Visit: Yes ED Registration Date: 12/14/18 Care time: The patient presented to the Emergency Department on the above date and was hospitalized for further evaluation of their emergent condition. - New Patient This patient is new to me today: Yes Date on this admission: 12/15/18 - Critical Care Critical Care patient: No - Discharge Referral Referred to [facility] Med P.C.: No ATTENDING PHYSICIAN STATEMENT I saw and evaluated the patient. I reviewed the resident's note and discussed the case with the resident. I agree with the resident's findings and plan as documented. SUBJECTIVE: OBJECTIVE: ASSESSMENT AND PLAN:
[2018-12-15] MEDS: ATORVASTATIN CA 20 MG TABLET (FP) PO SCH (21:55)
--- NOTE | 2018-12-15 21:59 | PN ---
Teaching Attending Note Name of Resident: Katja Booth ATTENDING PHYSICIAN STATEMENT I saw and evaluated the patient. I reviewed the resident's note and discussed the case with the resident. I agree with the resident's findings and plan as documented. SUBJECTIVE: OBJECTIVE: ASSESSMENT AND PLAN: PROBABLE ASPIRATION PNEUMONIA HEMOPTYSIS HX HEAD AND NECK CA AWAIT SPUTUM C/S CONTINUE EMPIRIC UNASYN
[2018-12-16] MEDS: AMPICILLIN NA/SULBACTAM NA 1.5 GM in SODIUM CHLORIDE 100 ML IVPB SCH ×5 (02:05→21:11)
[2018-12-16] MEDS ORDERED: SODIUM CHLORIDE 100 ML IVPB ONE ×4 (03:01→20:48)
[2018-12-16] MEDS ORDERED: AMPICILLIN NA/SULBACTAM NA 1.5 GM VIAL ONE ×4 (03:01→20:48)
[2018-12-16] MEDS: LEVOTHYROXINE NA 125 MCG TABLET (FP) PO SCH (06:09)
[2018-12-16] MEDS: GABAPENTIN 250 MG/5 ML ORAL SOLUTION, 470 ML BOTTLE GT SCH ×3 (06:09→21:10)
--- NOTE | 2018-12-16 07:19 | CONSULT ---
Consultation: REQUESTING PROVIDER: CONSULT REQUEST: We have been asked to medically evaluate this patient for ( specify). HISTORY OF PRESENT ILLNESS: REVIEW OF SYSTEMS: CONSTITUTIONAL: Absent: fever, chills, diaphoresis, generalized weakness, malaise, loss of appetite, weight change HEENT: Absent: rhinorrhea, nasal congestion, throat pain, throat swelling, difficulty swallowing, mouth swelling, ear pain, eye pain, visual changes CARDIOVASCULAR: Absent: chest pain, syncope, palpitations, irregular heart rate, lightheadedness , peripheral edema RESPIRATORY: Absent: cough, shortness of breath, dyspnea with exertion, orthopnea, wheezing, stridor, hemoptysis GASTROINTESTINAL: Absent: abdominal pain, abdominal distension, nausea, vomiting, diarrhea, constipation, melena, hematochezia GENITOURINARY: Absent: dysuria, frequency, urgency, hesitancy, hematuria, flank pain, genital pain MUSCULOSKELETAL: Absent: myalgia, arthralgia, joint swelling, back pain, neck pain SKIN: Absent: rash, itching, pallor HEMATOLOGIC/IMMUNOLOGIC: Absent: easy bleeding, easy bruising, lymphadenopathy, frequent infections ENDOCRINE: Absent: unexplained weight gain, unexplained weight loss, heat intolerance, cold intolerance NEUROLOGIC: Absent: headache, focal weakness or paresthesias, dizziness, unsteady gait, seizure, mental status changes, bladder or bowel incontinence PSYCHIATRIC: Absent: anxiety, depression, suicidal or homicidal ideation, hallucinations. PHYSICAL EXAMINATION Vital Signs - 24 hr 12/15/18 12/15/18 12/15/18 09:00 10:00 14:58 Temperature 98.3 F 97.9 F Pulse Rate 78 84 Respiratory 18 20 20 Rate Blood Pressure 153/80 141/74 O2 Sat by Pulse 99 Oximetry (%) 12/15/18 12/15/18 12/15/18 18:00 21:00 21:20 Temperature 98.2 F 98.6 F Pulse Rate 75 84 Respiratory 20 20 20 Rate Blood Pressure 159/103 H 192/111 H O2 Sat by Pulse 99 Oximetry (%) 12/16/18 01:00 Temperature 98.6 F Pulse Rate 69 Respiratory 20 Rate Blood Pressure 131/72 O2 Sat by Pulse Oximetry (%) GENERAL: Awake, alert, and fully oriented, in no acute distress. HEAD: Normal with no signs of trauma. EYES: Pupils equal, round and reactive to light, extraocular movements intact, sclera anicteric, conjunctiva clear. No lid lag. EARS, NOSE, THROAT: Ears normal, nares patent, oropharynx clear without exudates. Moist mucous membranes. NECK: Normal range of motion, supple without lymphadenopathy, JVD, or masses. LUNGS: Breath sounds equal, clear to auscultation bilaterally. No wheezes, and no crackles. No accessory muscle use. HEART: Regular rate and rhythm, normal S1 and S2 without murmur, rub or gallop. ABDOMEN: Soft, nontender, not distended, normoactive bowel sounds, no guarding, no rebound, no masses. No hepatomegaly or splenomegaly. MUSCULOSKELETAL: Normal range of motion at all joints. No bony deformities or tenderness. No CVA tenderness. UPPER EXTREMITIES: 2+ pulses, warm, well-perfused. No cyanosis. No clubbing. Cap refill <2 seconds. No peripheral edema. LOWER EXTREMITIES: 2+ pulses, warm, well-perfused. No calf tenderness. No peripheral edema. NEUROLOGICAL: Cranial nerves II-XII intact. Normal speech. Normal gait. PSYCHIATRIC: Cooperative. Good eye contact. Appropriate mood and affect. SKIN: Warm, dry, normal turgor, no rashes or lesions noted. Laboratory Results - last 24 hr 12/15/18 12/15/18 07:26 07:26 WBC 6.4 RBC 3.63 L Hgb 11.0 L Hct 32.7 L MCV 90.2 MCH 30.3 MCHC 33.6 RDW 14.4 Plt Count 244 MPV 7.8 Absolute Neuts (auto) 5.1 Neutrophils % 80.4 Lymphocytes % 8.9 D Monocytes % 7.5 Eosinophils % 3.1 Basophils % 0.1 Nucleated RBC % 0 TSH 2.22 D Active Medications Generic Name Dose Route Start Last Admin Trade Name Freq PRN Reason Stop Dose Admin Acetaminophen 650 mg 12/14/18 04:03 Tylenol - PO Q4H PRN FEVER Albuterol Sulfate 1 amp 12/14/18 04:03 Ventolin 0.083% Nebulizer Soln - NEB RQID PRN Dyspnea Amlodipine Besylate 10 mg 12/15/18 10:00 12/15/18 11:00 Norvasc - PO Not Given DAILY [facility] Atorvastatin Calcium 20 mg 12/15/18 22:00 12/15/18 21:55 Lipitor - PO 20 mg HS LITTLE Administration Gabapentin 100 mg 12/14/18 06:00 12/16/18 06:09 Neurontin Oral Liquid - GT 100 mg TID LITTLE Administration Heparin Sodium (Porcine) 5,000 unit 12/14/18 10:00 12/15/18 21:37 Heparin - SQ Not Given BID LITTLE Ampicillin Sodium/Sulbactam 100 mls @ 200 mls/hr 12/14/18 12:00 12/16/18 03: 36 Sodium 1.5 gm/ Sodium Chloride IVPB 200 mls/hr Q6H-IV L[facility]LE Administration Levothyroxine Sodium 125 mcg 12/14/18 07:00 12/16/18 06:09 Synthroid - PO 125 mcg DAILY@0700 LITT[facility] Administration (Non-Formulary) 2 each 12/15/18 18:26 12/16/18 06:10 Northera 300 Mg PO 2 each Capsule 0700,1300,1900 LITT[facility] Administration ASSESSMENT/PLAN: Dispo: We will continue to follow the patient. Thank you for this consultative opportunity. ATTENDING PHYSICIAN STATEMENT I saw and evaluated the patient. I reviewed the resident's note and discussed the case with the resident. I agree with the resident's findings and plan as documented. SUBJECTIVE: OBJECTIVE: ASSESSMENT AND PLAN:
--- NOTE | 2018-12-16 07:20 | PN ---
Physical Exam: SUBJECTIVE: Patient seen and examined. Still with elevated BP overnight. OBJECTIVE: Vital Signs Period Temp Pulse Resp BP Sys/Leblanc Pulse Ox Last 24 Hr 97.9 F-98.6 F 69-84 18-20 131-192/72-111 99-99 GENERAL: The patient is awake, alert, and fully oriented, in no acute distress. HEAD: Normal with no signs of trauma. EYES: PERRL, extraocular movements intact, sclera anicteric, conjunctiva clear. No ptosis. ENT: Ears normal, nares patent, oropharynx clear without exudates, moist mucous membranes. NECK: Trachea midline, full range of motion, supple. LUNGS: Breath sounds equal, clear to auscultation bilaterally, no wheezes, no crackles, no accessory muscle use. HEART: Regular rate and rhythm, S1, S2 without murmur, rub or gallop. ABDOMEN: Soft, nontender, nondistended, normoactive bowel sounds, no guarding, no rebound, no hepatosplenomegaly, no masses. EXTREMITIES: 2+ pulses, warm, well-perfused, no edema. NEUROLOGICAL: Cranial nerves II through XII grossly intact. Normal speech, gait not observed. PSYCH: Normal mood, normal affect. SKIN: Warm, dry, normal turgor, no rashes or lesions noted Laboratory Results - last 24 hr 12/15/18 12/15/18 07:26 07:26 WBC 6.4 RBC 3.63 L Hgb 11.0 L Hct 32.7 L MCV 90.2 MCH 30.3 MCHC 33.6 RDW 14.4 Plt Count 244 MPV 7.8 Absolute Neuts (auto) 5.1 Neutrophils % 80.4 Lymphocytes % 8.9 D Monocytes % 7.5 Eosinophils % 3.1 Basophils % 0.1 Nucleated RBC % 0 TSH 2.22 D Active Medications Generic Name Dose Route Start Last Admin Trade Name Freq PRN Reason Stop Dose Admin Acetaminophen 650 mg 12/14/18 04:03 Tylenol - PO Q4H PRN FEVER Albuterol Sulfate 1 amp 12/14/18 04:03 Ventolin 0.083% Nebulizer Soln - NEB RQID PRN Dyspnea Amlodipine Besylate 10 mg 12/15/18 10:00 12/15/18 11:00 Norvasc - PO Not Given DAILY [facility] Atorvastatin Calcium 20 mg 12/15/18 22:00 12/15/18 21:55 Lipitor - PO 20 mg HS LITTLE Administration Gabapentin 100 mg 12/14/18 06:00 12/16/18 06:09 Neurontin Oral Liquid - GT 100 mg TID LITTLE Administration Heparin Sodium (Porcine) 5,000 unit 12/14/18 10:00 12/15/18 21:37 Heparin - SQ Not Given BID LITTLE Ampicillin Sodium/Sulbactam 100 mls @ 200 mls/hr 12/14/18 12:00 12/16/18 03: 36 Sodium 1.5 gm/ Sodium Chloride IVPB 200 mls/hr Q6H-IV LITTLE Administration Levothyroxine Sodium 125 mcg 12/14/18 07:00 12/16/18 06:09 Synthroid - PO 125 mcg DAILY@0700 LITTLE Administration (Non-Formulary) 2 each 12/15/18 18:26 12/16/18 06:10 Northera 300 Mg PO 2 each Capsule 0700,1300,1900 LITTLE Administration ASSESSMENT/PLAN: ATTENDING PHYSICIAN STATEMENT I saw and evaluated the patient. I reviewed the resident's note and discussed the case with the resident. I agree with the resident's findings and plan as documented. SUBJECTIVE: OBJECTIVE: ASSESSMENT AND PLAN:
--- NOTE | 2018-12-16 08:29 | PN ---
Progress Note, Physician - Current Medication List Current Medications: Active Medications Acetaminophen (Tylenol -) 650 mg PO Q4H PRN PRN Reason: FEVER Albuterol Sulfate (Ventolin 0.083% Nebulizer Soln -) 1 amp NEB RQID PRN PRN Reason: Dyspnea Amlodipine Besylate (Norvasc -) 10 mg PO DAILY [facility] Last Admin: 12/15/18 11:00 Dose: Not Given Atorvastatin Calcium (Lipitor -) 20 mg PO HS [facility] Last Admin: 12/15/18 21:55 Dose: 20 mg Gabapentin (Neurontin Oral Liquid -) 100 mg GT TID [facility] Last Admin: 12/16/18 06:09 Dose: 100 mg Heparin Sodium (Porcine) (Heparin -) 5,000 unit SQ BID [facility] Last Admin: 12/15/18 21:37 Dose: Not Given Ampicillin Sodium/Sulbactam (Sodium 1.5 gm/ Sodium Chloride) 100 mls @ 200 mls/ hr IVPB Q6H-IV [facility] Last Admin: 12/16/18 03:36 Dose: 200 mls/hr Levothyroxine Sodium (Synthroid -) 125 mcg PO DAILY@0700 [facility] Last Admin: 12/16/18 06:09 Dose: 125 mcg (Non-Formulary) Northera 300 Mg Capsule 2 each PO 0700,1300,1900 [facility] Last Admin: 12/16/18 06:10 Dose: 2 each - Objective Vital Signs: Vital Signs Temperature 97.5 F L 12/16/18 05:00 Pulse Rate 71 12/16/18 05:00 Respiratory Rate 20 12/16/18 05:00 Blood Pressure 188/111 H 12/16/18 05:00 O2 Sat by Pulse Oximetry (%) 99 12/15/18 21:00 Cardiovascular: Yes: Regular Rate and Rhythm Respiratory: Yes: On Nasal O2, Rhonchi Gastrointestinal: Yes: Normal Bowel Sounds, Soft Labs: CBC, BMP 12/15/18 07:26 12/14/18 12:42 INR, PTT INR 1.05 (0.83-1.09) 12/14/18 00:45 Assessment/Plan - Problems (1) Aspiration pneumonia Assessment/Plan: -ID consult -Pulmonary consult -IV abx -CT chest reviewed-extensive right sided pneumonia -Nasal O 2 to maintain SpO2>90% -Bronchodilators -Acetaminophen PRn for fever >100.0F Problems reviewed: Yes Code(s): J69.0 - PNEUMONITIS DUE TO INHALATION OF FOOD AND VOMIT Qualifiers: Aspiration pneumonia type: unspecified Laterality: bilateral Lung location: lower lobe of lung Qualified Code(s): J69.0 - Pneumonitis due to inhalation of food and vomit (2) Hemoptysis Problems reviewed: Yes Code(s): R04.2 - HEMOPTYSIS (3) History of throat cancer Problems reviewed: Yes Code(s): Z85.819 - PRSNL HX OF MALIG NEOPLM OF UNSP SITE LIP,ORAL CAV,& PHARYNX (4) Dysautonomia orthostatic hypotension syndrome Assessment/Plan: -Cardiology on board -Maintains BP with Amlodipine Problems reviewed: Yes Code(s): G90.3 - MULTI-SYSTEM DEGENERATION OF THE AUTONOMIC NERVOUS SYSTEM
--- NOTE | 2018-12-16 09:09 | PN ---
Progress Note (short form) - Note Progress Note: Had some sputum with dark hemoptysis yesterday (picture on phone) None since midnight. No CP or SOB. Intake & Output 12/13/18 12/14/18 12/15/18 12/16/18 23:59 23:59 23:59 23:59 Intake Total 200 2390 110 Balance 200 2390 110 Weight 190 lb 190 lb Last Vital Signs Temp Pulse Resp BP Pulse Ox 97.5 F L 71 20 188/111 H 99 12/16/18 05:00 12/16/18 05:00 12/16/18 05:00 12/16/18 05:00 12/15/18 21:00 Active Medications Acetaminophen (Tylenol -) 650 mg PO Q4H PRN PRN Reason: FEVER Albuterol Sulfate (Ventolin 0.083% Nebulizer Soln -) 1 amp NEB RQID PRN PRN Reason: Dyspnea Amlodipine Besylate (Norvasc -) 10 mg PO DAILY [facility] Last Admin: 12/15/18 11:00 Dose: Not Given Atorvastatin Calcium (Lipitor -) 20 mg PO HS [facility] Last Admin: 12/15/18 21:55 Dose: 20 mg Gabapentin (Neurontin Oral Liquid -) 100 mg GT TID [facility] Last Admin: 12/16/18 06:09 Dose: 100 mg Heparin Sodium (Porcine) (Heparin -) 5,000 unit SQ BID [facility] Last Admin: 12/15/18 21:37 Dose: Not Given Ampicillin Sodium/Sulbactam (Sodium 1.5 gm/ Sodium Chloride) 100 mls @ 200 mls/ hr IVPB Q6H-IV [facility] Last Admin: 12/16/18 03:36 Dose: 200 mls/hr Levothyroxine Sodium (Synthroid -) 125 mcg PO DAILY@0700 [facility] Last Admin: 12/16/18 06:09 Dose: 125 mcg (Non-Formulary) Northera 300 Mg Capsule 2 each PO 0700,1300,1900 [facility] Last Admin: 12/16/18 06:10 Dose: 2 each Gen: NAD at rest Heart: RRR Lung: decreased breath sounds at the bases Abd: soft, nontender Ext: no edema Problem List - Problems (1) Aspiration pneumonia Code(s): J69.0 - PNEUMONITIS DUE TO INHALATION OF FOOD AND VOMIT Qualifiers: Aspiration pneumonia type: unspecified Laterality: bilateral Lung location: lower lobe of lung Qualified Code(s): J69.0 - Pneumonitis due to inhalation of food and vomit (2) Hemoptysis Code(s): R04.2 - HEMOPTYSIS A/P Pneumonia likely Aspiration Hemoptysis likely from above COPD h/o Pharyngeal Ca s/p RT HTN Hyperlipidemia - IV antibiotics - f/u cultures - quantify hemoptysis - inhaled bronchodilators - O2 to keep SpO2 >90% - can defer systemic steroids at this time - enteral feeds - aspiration precautions - mouth care - DVT prophylaxis Dr Powell
--- NOTE | 2018-12-16 10:27 | PN ---
Progress Note, Physician History of Present Illness: Dyspnea improved, some hemoptysis, afebrile. Orthostatic syncope much improved with Northera. - Current Medication List Current Medications: Active Medications Acetaminophen (Tylenol -) 650 mg PO Q4H PRN PRN Reason: FEVER Albuterol Sulfate (Ventolin 0.083% Nebulizer Soln -) 1 amp NEB RQID PRN PRN Reason: Dyspnea Amlodipine Besylate (Norvasc -) 10 mg PO DAILY [facility] Last Admin: 12/15/18 11:00 Dose: Not Given Atorvastatin Calcium (Lipitor -) 20 mg PO HS [facility] Last Admin: 12/15/18 21:55 Dose: 20 mg Gabapentin (Neurontin Oral Liquid -) 100 mg GT TID [facility] Last Admin: 12/16/18 06:09 Dose: 100 mg Heparin Sodium (Porcine) (Heparin -) 5,000 unit SQ BID [facility] Last Admin: 12/15/18 21:37 Dose: Not Given Ampicillin Sodium/Sulbactam (Sodium 1.5 gm/ Sodium Chloride) 100 mls @ 200 mls/ hr IVPB Q6H-IV [facility] Last Admin: 12/16/18 03:36 Dose: 200 mls/hr Levothyroxine Sodium (Synthroid -) 125 mcg PO DAILY@0700 [facility] Last Admin: 12/16/18 06:09 Dose: 125 mcg Lidocaine (Lidoderm Patch -) 1 patch TP DAILY [facility] Miscellaneous (Lidoderm Patch Removal) 1 each MC DAILY@2200 [facility] (Non-Formulary) Northera 300 Mg Capsule 2 each PO 0700,1300,1900 [facility] Last Admin: 12/16/18 06:10 Dose: 2 each - Objective Vital Signs: Vital Signs Temperature 97.5 F L 12/16/18 05:00 Pulse Rate 71 12/16/18 05:00 Respiratory Rate 20 12/16/18 05:00 Blood Pressure 188/111 H 12/16/18 05:00 O2 Sat by Pulse Oximetry (%) 99 12/15/18 21:00 Constitutional: Yes: No Distress, Calm, Thin Neck: Yes: Supple Cardiovascular: Yes: Regular Rate and Rhythm Respiratory: Yes: Regular, Diminished Gastrointestinal: Yes: Normal Bowel Sounds, Soft Edema: No Labs: CBC, BMP 12/15/18 07:26 12/14/18 12:42 INR, PTT INR 1.05 (0.83-1.09) 12/14/18 00:45 Problem List - Problems (1) Aspiration pneumonia Code(s): J69.0 - PNEUMONITIS DUE TO INHALATION OF FOOD AND VOMIT Qualifiers: Aspiration pneumonia type: unspecified Laterality: bilateral Lung location: lower lobe of lung Qualified Code(s): J69.0 - Pneumonitis due to inhalation of food and vomit (2) COPD (chronic obstructive pulmonary disease) Code(s): J44.9 - CHRONIC OBSTRUCTIVE PULMONARY DISEASE, UNSPECIFIED Qualifiers: COPD type: unspecified COPD Qualified Code(s): J44.9 - Chronic obstructive pulmonary disease, unspecified (3) Hemoptysis Code(s): R04.2 - HEMOPTYSIS (4) Autonomic postural hypotension Code(s): I95.1 - ORTHOSTATIC HYPOTENSION (5) CAD (coronary artery disease) Code(s): I25.10 - ATHSCL HEART DISEASE OF [place] CORONARY ARTERY W/O ANG PCTRS Qualifiers: Coronary Disease-Associated Artery/Lesion type: [place] artery [place] vs. transplanted heart: [place] heart Associated angina: without angina Qualified Code(s): I25.10 - Atherosclerotic heart disease of [place] coronary artery without angina pectoris (6) Dysautonomia orthostatic hypotension syndrome Code(s): G90.3 - MULTI-SYSTEM DEGENERATION OF THE AUTONOMIC NERVOUS SYSTEM (7) HLD (hyperlipidemia) Code(s): E78.5 - HYPERLIPIDEMIA, UNSPECIFIED Qualifiers: Hyperlipidemia type: pure hypercholesterolemia Qualified Code(s): E78.00 - Pure hypercholesterolemia, unspecified; E78.0 - Pure hypercholesterolemia (8) Hypothyroid Code(s): E03.9 - HYPOTHYROIDISM, UNSPECIFIED Qualifiers: Hypothyroidism type: unspecified Qualified Code(s): E03.9 - Hypothyroidism , unspecified (9) Labile essential hypertension Code(s): I10 - ESSENTIAL (PRIMARY) HYPERTENSION (10) Orthostatic hypotension Code(s): I95.1 - ORTHOSTATIC HYPOTENSION Assessment/Plan 1. Pneumonia likely Aspiration with hemoptysis and underlying COPD 2. History of syncope, orthostatic hypotension and profound autonomic dysfunction 3. HTN with labile BP 4. CAD (non-obstructive), angina pectoris 5. Diastolic dysfunction with class 0 NYHA classification heart failure 6. Hypercholesterolemia 7. Hypothyroidism 8. Head and neck CA s/p radiation therapy 9. Post PEG PLAN: 1. May use Amlodipine 2.5 mg as needed if BP is severely high 2. Monitor BP closely - better today 3. Patient is on Northera 600 tid for orthostatic hypotension and autonomic dysfunction 4. Empiric antibiotic coverage per C&S, BD and O2 to keep SpO2 >90% 5. Continue Lipitor 20 qhs 6. Enteral feeds, aspiration precautions, DVT prophylaxis
[2018-12-16] MEDS: LIDOCAINE 5% TOPICAL PATCH TP SCH (11:54)
[2018-12-16] MEDS: HEPARIN NA (PORCINE) 5,000 UNITS/ML 1ML VIAL SQ SCH ×2 (11:55→21:11)
[2018-12-16] MEDS: amLODIPine BESYLATE 10 MG TABLET (FP) PO SCH (12:01)
[2018-12-16] MEDS ORDERED: INSULIN (NOVOLOG) ASPART 100 UNITS/ML 10ML VIAL ONE (12:13)
[2018-12-16] MEDS ORDERED: amLODIPine BESYLATE 10 MG TABLET (FP) PO SCH (13:51)
[2018-12-16] MEDS ORDERED: PT OWN MED DRAWER 7, Y5N ONE (20:48)
[2018-12-16] MEDS: ATORVASTATIN CA 20 MG TABLET (FP) PO SCH (21:10)
[2018-12-16] MEDS: LIDOCAINE PATCH REMOVAL MC SCH (21:11)
[2018-12-17] MEDS ORDERED: AMPICILLIN NA/SULBACTAM NA 1.5 GM VIAL ONE ×3 (00:38→14:16)
[2018-12-17] MEDS ORDERED: SODIUM CHLORIDE 100 ML IVPB ONE ×3 (00:38→14:16)
[2018-12-17] MEDS: AMPICILLIN NA/SULBACTAM NA 1.5 GM in SODIUM CHLORIDE 100 ML IVPB SCH ×3 (02:33→14:39)
[2018-12-17] MEDS: GABAPENTIN 250 MG/5 ML ORAL SOLUTION, 470 ML BOTTLE GT SCH ×4 (06:31→21:43)
[2018-12-17] MEDS: LEVOTHYROXINE NA 125 MCG TABLET (FP) PO SCH (06:32)
--- NOTE | 2018-12-17 09:45 | PN ---
Progress Note, Physician History of Present Illness: Dyspnea improved, some hemoptysis, afebrile. Orthostatic syncope much improved with Northera. Labile BP. - Current Medication List Current Medications: Active Medications Acetaminophen (Tylenol -) 650 mg PO Q4H PRN PRN Reason: FEVER Albuterol Sulfate (Ventolin 0.083% Nebulizer Soln -) 1 amp NEB RQID PRN PRN Reason: Dyspnea Amlodipine Besylate (Norvasc -) 2.5 mg PEG DAILY [facility] Atorvastatin Calcium (Lipitor -) 20 mg PO HS [facility] Last Admin: 12/16/18 21:10 Dose: 20 mg Gabapentin (Neurontin Oral Liquid -) 100 mg GT TID [facility] Last Admin: 12/17/18 06:32 Dose: Not Given Heparin Sodium (Porcine) (Heparin -) 5,000 unit SQ BID [facility] Last Admin: 12/16/18 21:11 Dose: Not Given Ampicillin Sodium/Sulbactam (Sodium 1.5 gm/ Sodium Chloride) 100 mls @ 200 mls/ hr IVPB Q6H-IV [facility] Last Admin: 12/17/18 02:33 Dose: 200 mls/hr Levothyroxine Sodium (Synthroid -) 125 mcg PO DAILY@0700 [facility] Last Admin: 12/17/18 06:32 Dose: 125 mcg Lidocaine (Lidoderm Patch -) 1 patch TP DAILY [facility] Last Admin: 12/16/18 11:54 Dose: 1 patch Miscellaneous (Lidoderm Patch Removal) 1 each MC DAILY@2200 [facility] Last Admin: 12/16/18 21:11 Dose: 1 each (Non-Formulary) Northera 300 Mg Capsule 2 each PO 0700,1300,1900 [facility] Last Admin: 12/17/18 06:31 Dose: 2 each - Objective Vital Signs: Vital Signs Temperature 97.8 F 12/17/18 06:00 Pulse Rate 77 12/17/18 06:00 Respiratory Rate 20 12/17/18 09:00 Blood Pressure 184/106 H 12/17/18 06:00 O2 Sat by Pulse Oximetry (%) 98 12/17/18 09:00 Constitutional: Yes: No Distress, Calm, Thin Neck: Yes: Supple Cardiovascular: Yes: Regular Rate and Rhythm Respiratory: Yes: Regular, Diminished Gastrointestinal: Yes: Normal Bowel Sounds, Soft Edema: No Labs: CBC, BMP 12/15/18 07:26 12/14/18 12:42 INR, PTT INR 1.05 (0.83-1.09) 12/14/18 00:45 Problem List - Problems (1) Aspiration pneumonia Code(s): J69.0 - PNEUMONITIS DUE TO INHALATION OF FOOD AND VOMIT Qualifiers: Aspiration pneumonia type: unspecified Laterality: bilateral Lung location: lower lobe of lung Qualified Code(s): J69.0 - Pneumonitis due to inhalation of food and vomit (2) COPD (chronic obstructive pulmonary disease) Code(s): J44.9 - CHRONIC OBSTRUCTIVE PULMONARY DISEASE, UNSPECIFIED Qualifiers: COPD type: unspecified COPD Qualified Code(s): J44.9 - Chronic obstructive pulmonary disease, unspecified (3) Hemoptysis Code(s): R04.2 - HEMOPTYSIS (4) Autonomic postural hypotension Code(s): I95.1 - ORTHOSTATIC HYPOTENSION (5) CAD (coronary artery disease) Code(s): I25.10 - ATHSCL HEART DISEASE OF [place] CORONARY ARTERY W/O ANG PCTRS Qualifiers: Coronary Disease-Associated Artery/Lesion type: [place] artery [place] vs. transplanted heart: [place] heart Associated angina: without angina Qualified Code(s): I25.10 - Atherosclerotic heart disease of [place] coronary artery without angina pectoris (6) Dysautonomia orthostatic hypotension syndrome Code(s): G90.3 - MULTI-SYSTEM DEGENERATION OF THE AUTONOMIC NERVOUS SYSTEM (7) HLD (hyperlipidemia) Code(s): E78.5 - HYPERLIPIDEMIA, UNSPECIFIED Qualifiers: Hyperlipidemia type: pure hypercholesterolemia Qualified Code(s): E78.00 - Pure hypercholesterolemia, unspecified; E78.0 - Pure hypercholesterolemia (8) Hypothyroid Code(s): E03.9 - HYPOTHYROIDISM, UNSPECIFIED Qualifiers: Hypothyroidism type: unspecified Qualified Code(s): E03.9 - Hypothyroidism , unspecified (9) Labile essential hypertension Code(s): I10 - ESSENTIAL (PRIMARY) HYPERTENSION (10) Orthostatic hypotension Code(s): I95.1 - ORTHOSTATIC HYPOTENSION Assessment/Plan 1. Pneumonia likely Aspiration with hemoptysis and underlying COPD 2. History of syncope, orthostatic hypotension and profound autonomic dysfunction 3. HTN with labile BP 4. CAD (non-obstructive), angina pectoris 5. Diastolic dysfunction with class 0 NYHA classification heart failure 6. Hypercholesterolemia 7. Hypothyroidism 8. Head and neck CA s/p radiation therapy 9. Post PEG PLAN: 1. May use Amlodipine 2.5 mg qd as needed if BP is severely high 2. Patient is on Northera 600 tid for orthostatic hypotension and autonomic dysfunction 3. Empiric antibiotic coverage per C&S, BD and O2 to keep SpO2 >90% 4. Continue Lipitor 20 qhs 5. Enteral feeds, aspiration precautions, DVT prophylaxis
--- NOTE | 2018-12-17 10:47 | PN ---
Progress Note (short form) - Note Progress Note: PULMONARY Still some hemoptysis but overall improving. No fevers recorded. Vital Signs Period Temp Pulse Resp BP Sys/Leblanc Pulse Ox Last 24 Hr 97.8 F-98.2 F 70-84 20-20 130-194/82-118 98-98 Gen: NAD at rest Heart: RRR Lung: decreased breath sounds at the bases, scattered rales Abd: soft, nontender Ext: no edema CBC, BMP 12/15/18 07:26 12/14/18 12:42 Active Medications Acetaminophen (Tylenol -) 650 mg PO Q4H PRN PRN Reason: FEVER Albuterol Sulfate (Ventolin 0.083% Nebulizer Soln -) 1 amp NEB RQID PRN PRN Reason: Dyspnea Amlodipine Besylate (Norvasc -) 2.5 mg PEG DAILY [facility] Atorvastatin Calcium (Lipitor -) 20 mg PO HS [facility] Last Admin: 12/16/18 21:10 Dose: 20 mg Gabapentin (Neurontin Oral Liquid -) 100 mg GT TID [facility] Last Admin: 12/17/18 06:32 Dose: Not Given Heparin Sodium (Porcine) (Heparin -) 5,000 unit SQ BID [facility] Last Admin: 12/16/18 21:11 Dose: Not Given Ampicillin Sodium/Sulbactam (Sodium 1.5 gm/ Sodium Chloride) 100 mls @ 200 mls/ hr IVPB Q6H-IV [facility] Last Admin: 12/17/18 02:33 Dose: 200 mls/hr Levothyroxine Sodium (Synthroid -) 125 mcg PO DAILY@0700 [facility] Last Admin: 12/17/18 06:32 Dose: 125 mcg Lidocaine (Lidoderm Patch -) 1 patch TP DAILY [facility] Last Admin: 12/16/18 11:54 Dose: 1 patch Miscellaneous (Lidoderm Patch Removal) 1 each MC DAILY@2200 [facility] Last Admin: 12/16/18 21:11 Dose: 1 each (Non-Formulary) Northera 300 Mg Capsule 2 each PO 0700,1300,1900 [facility] Last Admin: 12/17/18 06:31 Dose: 2 each A/P Pneumonia likely Aspiration Hemoptysis likely from above COPD h/o Pharyngeal Ca s/p RT HTN Hyperlipidemia - continue antibiotics - f/u cultures - monitor/quantify hemoptysis - inhaled bronchodilators - O2 to keep SpO2 >90% - can defer systemic steroids at this time - enteral feeds - aspiration precautions - mouth care - DVT prophylaxis Problem List - Problems (1) Aspiration pneumonia Code(s): J69.0 - PNEUMONITIS DUE TO INHALATION OF FOOD AND VOMIT Qualifiers: Aspiration pneumonia type: unspecified Laterality: bilateral Lung location: lower lobe of lung Qualified Code(s): J69.0 - Pneumonitis due to inhalation of food and vomit (2) Hemoptysis Code(s): R04.2 - HEMOPTYSIS
[2018-12-17] MEDS: HEPARIN NA (PORCINE) 5,000 UNITS/ML 1ML VIAL SQ SCH ×2 (11:00→21:43)
[2018-12-17] MEDS: amLODIPine BESYLATE 5 MG TABLET (FP) PEG SCH (11:01)
[2018-12-17] MEDS: LIDOCAINE 5% TOPICAL PATCH TP SCH (11:46)
--- NOTE | 2018-12-17 12:31 | PN ---
Progress Note, Physician Chief Complaint: awake alert still with slight hemoptysis - Current Medication List Current Medications: Active Medications Acetaminophen (Tylenol -) 650 mg PO Q4H PRN PRN Reason: FEVER Albuterol Sulfate (Ventolin 0.083% Nebulizer Soln -) 1 amp NEB RQID PRN PRN Reason: Dyspnea Amlodipine Besylate (Norvasc -) 2.5 mg PEG DAILY [facility] Last Admin: 12/17/18 11:01 Dose: 2.5 mg Atorvastatin Calcium (Lipitor -) 20 mg PO HS [facility] Last Admin: 12/16/18 21:10 Dose: 20 mg Gabapentin (Neurontin Oral Liquid -) 100 mg GT TID [facility] Last Admin: 12/17/18 06:32 Dose: Not Given Heparin Sodium (Porcine) (Heparin -) 5,000 unit SQ BID [facility] Last Admin: 12/17/18 11:00 Dose: 5,000 unit Ampicillin Sodium/Sulbactam (Sodium 1.5 gm/ Sodium Chloride) 100 mls @ 200 mls/ hr IVPB Q6H-IV [facility] Last Admin: 12/17/18 11:01 Dose: 200 mls/hr Levothyroxine Sodium (Synthroid -) 125 mcg PO DAILY@0700 [facility] Last Admin: 12/17/18 06:32 Dose: 125 mcg Lidocaine (Lidoderm Patch -) 1 patch TP DAILY [facility] Last Admin: 12/16/18 11:54 Dose: 1 patch Miscellaneous (Lidoderm Patch Removal) 1 each MC DAILY@2200 [facility] Last Admin: 12/16/18 21:11 Dose: 1 each (Non-Formulary) Northera 300 Mg Capsule 2 each PO 0700,1300,1900 [facility] Last Admin: 12/17/18 06:31 Dose: 2 each - Objective Vital Signs: Vital Signs Temperature 97.8 F 12/17/18 06:00 Pulse Rate 77 12/17/18 06:00 Respiratory Rate 20 12/17/18 09:00 Blood Pressure 184/106 H 12/17/18 06:00 O2 Sat by Pulse Oximetry (%) 98 12/17/18 09:00 Constitutional: Yes: Calm Cardiovascular: Yes: Regular Rate and Rhythm, S1, S2 Respiratory: Yes: Diminished Gastrointestinal: Yes: Normal Bowel Sounds, Soft, Other (g tube) Edema: No Labs: CBC, BMP 12/15/18 07:26 12/14/18 12:42 INR, PTT INR 1.05 (0.83-1.09) 12/14/18 00:45 Problem List - Problems (1) Aspiration pneumonia Assessment/Plan: iv abx Microbiology 12/14/18 14:30 Sputum - Expectorated Gram Stain - Final 12/14/18 14:30 Sputum - Expectorated Sputum Culture - Preliminary Pseudo Fluorescens/[place] Mr S Aureus Pending Organism history of pharyngeal cancer chest ct reviewed extensive right sided infiltrated in lower level dietary recommendation noted Code(s): J69.0 - PNEUMONITIS DUE TO INHALATION OF FOOD AND VOMIT Qualifiers: Aspiration pneumonia type: unspecified Laterality: bilateral Lung location: lower lobe of lung Qualified Code(s): J69.0 - Pneumonitis due to inhalation of food and vomit (2) Hemoptysis Assessment/Plan: iv abx Code(s): R04.2 - HEMOPTYSIS (3) Hypothyroid Assessment/Plan: synthroid Code(s): E03.9 - HYPOTHYROIDISM, UNSPECIFIED Qualifiers: Hypothyroidism type: unspecified Qualified Code(s): E03.9 - Hypothyroidism , unspecified
--- NOTE | 2018-12-17 15:06 | PN ---
Progress Note (short form) - Note Progress Note: has no fever chest ct reviewed with radiology definitely worse then november- ?chronic aspiration Vital Signs Period Temp Pulse Resp BP Sys/Leblanc Pulse Ox Last 24 Hr 97.8 F-98.0 F 70-79 20-20 130-194/82-114 98-98 cor-rrr lungs clear abd soft,+GT ext no edema CBC, BMP 12/15/18 07:26 12/14/18 12:42 Microbiology 12/14/18 14:30 Sputum - Expectorated Gram Stain - Final 12/14/18 14:30 Sputum - Expectorated Sputum Culture - Preliminary Pseudo Fluorescens/[place] Mr S Aureus Pending Organism 12/14/18 00:45 Blood - Peripheral Venous Blood Culture - Preliminary NO GROWTH OBTAINED AFTER 72 HOURS, INCUBATION TO CONTINUE FOR 2 DAYS. 12/14/18 00:45 Blood - Peripheral Venous Blood Culture - Preliminary NO GROWTH OBTAINED AFTER 72 HOURS, INCUBATION TO CONTINUE FOR 2 DAYS. 12/14/18 14:30 Urine For Antigen Detection Legionella Antigen - Final 12/14/18 14:30 Urine For Antigen Detection Streptococcus pneumoniae Antigen (M - Final a/p aspiration pneumonia switch to vanco/cefepime with plans for po bactrim at discharge
[2018-12-17] MEDS ORDERED: DEXTROSE 5%-WATER 100 ML IVPB ONE ×2 (18:01→23:26)
[2018-12-17] MEDS ORDERED: CEFEPIME HCL 1 GM VIAL (RESTRICTED TO ID) ONE ×2 (18:01→23:26)
[2018-12-17] MEDS: CEFEPIME 1 GM in DEXTROSE 5%-WATER 100 ML IVPB SCH (18:04)
[2018-12-17] MEDS: CLINDAMYCIN 600MG PREMIX IVPB 600 MG/50 ML BAG IVPB SCH (19:02)
[2018-12-17] MEDS: ATORVASTATIN CA 20 MG TABLET (FP) PO SCH (21:43)
[2018-12-17] MEDS: LIDOCAINE PATCH REMOVAL MC SCH (21:43)
[2018-12-18] MEDS: CLINDAMYCIN 600MG PREMIX IVPB 600 MG/50 ML BAG IVPB SCH ×3 (01:22→17:18)
[2018-12-18] MEDS: CEFEPIME 1 GM in DEXTROSE 5%-WATER 100 ML IVPB SCH ×3 (01:23→17:18)
[2018-12-18] MEDS: GABAPENTIN 250 MG/5 ML ORAL SOLUTION, 470 ML BOTTLE GT SCH ×3 (06:36→22:11)
[2018-12-18] MEDS: LEVOTHYROXINE NA 125 MCG TABLET (FP) PO SCH (06:37)
[2018-12-18 09:02] LABS: BASO % 0.4 % (0-2.0); EOS % 4.2 % (0-4.5); HEMATOCRIT 32.7 % (35.4-49); HEMOGLOBIN 10.9 GM/dL (11.7-16.9); LYMPH % 11.7 % (8-40); MCH 30.2 pg (25.7-33.7); MCHC 33.4 g/dl (32.0-35.9); MEAN CELL VOLUME 90.4 fl (80-96); MEAN PLT VOLUME 7.8 fl (7.5-11.1); MONO % 8.6 % (3.8-10.2); NEUT % 75.1 % (42.8-82.8); PLATELET COUNT 256 K/MM3 (134-434); RBC 3.62 M/mm3 (4.00-5.60); RDW 14.3 % (11.9-15.9)
[2018-12-18 09:29] LABS: BILIRUBIN,TOTAL 0.6 mg/dL (0.2-1); BLOOD UREA NITROGEN 19.6 mg/dL (7-18); CALCIUM 9.2 mg/dL (8.5-10.1); CREATININE 0.8 mg/dL (0.55-1.3); POTASSIUM 3.9 mmol/L (3.5-5.1); TOT PROT 6.3 g/dl (6.4-8.2)
[2018-12-18] MEDS ORDERED: CEFEPIME HCL 1 GM VIAL (RESTRICTED TO ID) ONE ×2 (10:08→17:15)
[2018-12-18] MEDS ORDERED: DEXTROSE 5%-WATER 100 ML IVPB ONE ×2 (10:08→17:15)
[2018-12-18] MEDS: LIDOCAINE 5% TOPICAL PATCH TP SCH (10:17)
[2018-12-18] MEDS: HEPARIN NA (PORCINE) 5,000 UNITS/ML 1ML VIAL SQ SCH ×2 (10:18→22:10)
[2018-12-18] MEDS: amLODIPine BESYLATE 5 MG TABLET (FP) PEG SCH (10:19)
--- NOTE | 2018-12-18 10:39 | PN ---
Progress Note, Physician History of Present Illness: Dyspnea and hemoptysis improved, afebrile. Orthostatic syncope much improved with Northera. Labile BP. - Current Medication List Current Medications: Active Medications Acetaminophen (Tylenol -) 650 mg PO Q4H PRN PRN Reason: FEVER Albuterol Sulfate (Ventolin 0.083% Nebulizer Soln -) 1 amp NEB RQID PRN PRN Reason: Dyspnea Amlodipine Besylate (Norvasc -) 2.5 mg PEG DAILY [facility] Last Admin: 12/18/18 10:19 Dose: Not Given Atorvastatin Calcium (Lipitor -) 20 mg PO HS [facility] Last Admin: 12/17/18 21:43 Dose: 20 mg Gabapentin (Neurontin Oral Liquid -) 100 mg GT TID [facility] Last Admin: 12/18/18 06:36 Dose: 100 mg Heparin Sodium (Porcine) (Heparin -) 5,000 unit SQ BID [facility] Last Admin: 12/18/18 10:18 Dose: 5,000 unit Cefepime HCl 1 gm/ Dextrose 100 mls @ 100 mls/hr IVPB Q8H-IV [facility]; Protocol Last Admin: 12/18/18 10:18 Dose: 100 mls/hr Clindamycin Phosphate (Cleocin 600 Mg Premix Ivpb -) 600 mg in 50 mls @ 100 mls /hr IVPB Q8H-IV [facility]; Protocol Last Admin: 12/18/18 10:17 Dose: 100 mls/hr Levothyroxine Sodium (Synthroid -) 125 mcg PO DAILY@0700 [facility] Last Admin: 12/18/18 06:37 Dose: 125 mcg Lidocaine (Lidoderm Patch -) 1 patch TP DAILY [facility] Last Admin: 12/18/18 10:17 Dose: 1 patch Miscellaneous (Lidoderm Patch Removal) 1 each MC DAILY@2200 [facility] Last Admin: 12/17/18 21:43 Dose: 1 each (Non-Formulary) Northera 300 Mg Capsule 2 each PO 0700,1300,1900 [facility] Last Admin: 12/18/18 06:37 Dose: 2 each - Objective Vital Signs: Vital Signs Temperature 98.5 F 12/18/18 06:00 Pulse Rate 68 12/18/18 06:00 Respiratory Rate 18 12/18/18 08:40 Blood Pressure 120/78 12/18/18 06:00 O2 Sat by Pulse Oximetry (%) 100 12/18/18 08:40 Constitutional: Yes: No Distress, Calm, Thin Neck: Yes: Supple Cardiovascular: Yes: Regular Rate and Rhythm Respiratory: Yes: Regular, CTA Bilaterally Gastrointestinal: Yes: Normal Bowel Sounds, Soft, Other (PEG in place) Edema: No Labs: CBC, BMP 12/18/18 08:25 12/18/18 08:25 INR, PTT INR 1.05 (0.83-1.09) 12/14/18 00:45 Problem List - Problems (1) Aspiration pneumonia Code(s): J69.0 - PNEUMONITIS DUE TO INHALATION OF FOOD AND VOMIT Qualifiers: Aspiration pneumonia type: unspecified Laterality: bilateral Lung location: lower lobe of lung Qualified Code(s): J69.0 - Pneumonitis due to inhalation of food and vomit (2) COPD (chronic obstructive pulmonary disease) Code(s): J44.9 - CHRONIC OBSTRUCTIVE PULMONARY DISEASE, UNSPECIFIED Qualifiers: COPD type: unspecified COPD Qualified Code(s): J44.9 - Chronic obstructive pulmonary disease, unspecified (3) Hemoptysis Code(s): R04.2 - HEMOPTYSIS (4) Autonomic postural hypotension Code(s): I95.1 - ORTHOSTATIC HYPOTENSION (5) CAD (coronary artery disease) Code(s): I25.10 - ATHSCL HEART DISEASE OF [place] CORONARY ARTERY W/O ANG PCTRS Qualifiers: Coronary Disease-Associated Artery/Lesion type: [place] artery [place] vs. transplanted heart: [place] heart Associated angina: without angina Qualified Code(s): I25.10 - Atherosclerotic heart disease of [place] coronary artery without angina pectoris (6) Dysautonomia orthostatic hypotension syndrome Code(s): G90.3 - MULTI-SYSTEM DEGENERATION OF THE AUTONOMIC NERVOUS SYSTEM (7) HLD (hyperlipidemia) Code(s): E78.5 - HYPERLIPIDEMIA, UNSPECIFIED Qualifiers: Hyperlipidemia type: pure hypercholesterolemia Qualified Code(s): E78.00 - Pure hypercholesterolemia, unspecified; E78.0 - Pure hypercholesterolemia (8) Hypothyroid Code(s): E03.9 - HYPOTHYROIDISM, UNSPECIFIED Qualifiers: Hypothyroidism type: unspecified Qualified Code(s): E03.9 - Hypothyroidism , unspecified (9) Labile essential hypertension Code(s): I10 - ESSENTIAL (PRIMARY) HYPERTENSION (10) Orthostatic hypotension Code(s): I95.1 - ORTHOSTATIC HYPOTENSION Assessment/Plan 1. Pneumonia likely Aspiration with hemoptysis and underlying COPD 2. History of syncope, orthostatic hypotension and profound autonomic dysfunction 3. HTN with labile BP 4. CAD (non-obstructive), angina pectoris 5. Diastolic dysfunction with class 0 NYHA classification heart failure 6. Hypercholesterolemia 7. Hypothyroidism 8. Head and neck CA s/p radiation therapy 9. Post PEG PLAN: 1. May use Amlodipine 2.5 mg qd as needed if BP is severely high 2. Patient is on Northera 600 tid for orthostatic hypotension and autonomic dysfunction 3. Empiric antibiotic coverage per ID, BD and O2 to keep SpO2 >90% 4. Continue Lipitor 20 qhs 5. Enteral feeds, aspiration precautions, DVT prophylaxis
--- NOTE | 2018-12-18 12:25 | PN ---
Progress Note, Physician History of Present Illness: pulmonary alert,comfortable,still with minimal hemoptysis - Current Medication List Current Medications: Active Medications Acetaminophen (Tylenol -) 650 mg PO Q4H PRN PRN Reason: FEVER Albuterol Sulfate (Ventolin 0.083% Nebulizer Soln -) 1 amp NEB RQID PRN PRN Reason: Dyspnea Amlodipine Besylate (Norvasc -) 2.5 mg PEG DAILY [facility] Last Admin: 12/18/18 10:19 Dose: Not Given Atorvastatin Calcium (Lipitor -) 20 mg PO HS [facility] Last Admin: 12/17/18 21:43 Dose: 20 mg Gabapentin (Neurontin Oral Liquid -) 100 mg GT TID [facility] Last Admin: 12/18/18 06:36 Dose: 100 mg Heparin Sodium (Porcine) (Heparin -) 5,000 unit SQ BID [facility] Last Admin: 12/18/18 10:18 Dose: 5,000 unit Cefepime HCl 1 gm/ Dextrose 100 mls @ 100 mls/hr IVPB Q8H-IV [facility]; Protocol Last Admin: 12/18/18 10:18 Dose: 100 mls/hr Clindamycin Phosphate (Cleocin 600 Mg Premix Ivpb -) 600 mg in 50 mls @ 100 mls /hr IVPB Q8H-IV [facility]; Protocol Last Admin: 12/18/18 10:17 Dose: 100 mls/hr Levothyroxine Sodium (Synthroid -) 125 mcg PO DAILY@0700 [facility] Last Admin: 12/18/18 06:37 Dose: 125 mcg Lidocaine (Lidoderm Patch -) 1 patch TP DAILY [facility] Last Admin: 12/18/18 10:17 Dose: 1 patch Miscellaneous (Lidoderm Patch Removal) 1 each MC DAILY@2200 [facility] Last Admin: 12/17/18 21:43 Dose: 1 each (Non-Formulary) Northera 300 Mg Capsule 2 each PO 0700,1300,1900 [facility] Last Admin: 12/18/18 06:37 Dose: 2 each - Objective Vital Signs: Vital Signs Temperature 97.3 F L 12/18/18 10:00 Pulse Rate 66 12/18/18 10:00 Respiratory Rate 18 12/18/18 10:00 Blood Pressure 94/50 L 12/18/18 10:00 O2 Sat by Pulse Oximetry (%) 100 12/18/18 08:40 Constitutional: Yes: Well Nourished, Calm Eyes: Yes: WNL HENT: Yes: Nasal Congestion Neck: Yes: WNL Cardiovascular: Yes: Regular Rate and Rhythm, S1, S2 Respiratory: Yes: Rales (biateral crackles r>l) Gastrointestinal: Yes: Normal Bowel Sounds, Soft Extremities: Yes: WNL Edema: No Labs: CBC, BMP 12/18/18 08:25 12/18/18 08:25 INR, PTT INR 1.05 (0.83-1.09) 12/14/18 00:45 Assessment/Plan A/P Pneumonia likely Aspiration Hemoptysis likely from above COPD h/o Pharyngeal Ca s/p RT HTN Hyperlipidemia - abx as per ID - monitor/quantify hemoptysis - inhaled bronchodilators - O2 to keep SpO2 >90% - f/u chest x-rays - enteral feeds - aspiration precautions - mouth care - DVT prophylaxis Problem List - Problems (1) Aspiration pneumonia Code(s): J69.0 - PNEUMONITIS DUE TO INHALATION OF FOOD AND VOMIT Qualifiers: Aspiration pneumonia type: unspecified Laterality: bilateral Lung location: lower lobe of lung Qualified Code(s): J69.0 - Pneumonitis due to inhalation of food and vomit (2) Hemoptysis Code(s): R04.2 - HEMOPTYSIS
--- NOTE | 2018-12-18 15:42 | PN ---
Progress Note, Physician Chief Complaint: patient seen and examined had two episodes of hemoptysis today - Current Medication List Current Medications: Active Medications Acetaminophen (Tylenol -) 650 mg PO Q4H PRN PRN Reason: FEVER Albuterol Sulfate (Ventolin 0.083% Nebulizer Soln -) 1 amp NEB RQID PRN PRN Reason: Dyspnea Amlodipine Besylate (Norvasc -) 2.5 mg PEG DAILY [facility] Last Admin: 12/18/18 10:19 Dose: Not Given Atorvastatin Calcium (Lipitor -) 20 mg PO HS [facility] Last Admin: 12/17/18 21:43 Dose: 20 mg Gabapentin (Neurontin Oral Liquid -) 100 mg GT TID [facility] Last Admin: 12/18/18 14:29 Dose: 100 mg Heparin Sodium (Porcine) (Heparin -) 5,000 unit SQ BID [facility] Last Admin: 12/18/18 10:18 Dose: 5,000 unit Cefepime HCl 1 gm/ Dextrose 100 mls @ 100 mls/hr IVPB Q8H-[facility]; Protocol Last Admin: 12/18/18 10:18 Dose: 100 mls/hr Clindamycin Phosphate (Cleocin 600 Mg Premix Ivpb -) 600 mg in 50 mls @ 100 mls /hr IVPB Q8H-IV [facility]; Protocol Last Admin: 12/18/18 10:17 Dose: 100 mls/hr Levothyroxine Sodium (Synthroid -) 125 mcg PO DAILY@0700 [facility] Last Admin: 12/18/18 06:37 Dose: 125 mcg Lidocaine (Lidoderm Patch -) 1 patch TP DAILY [facility] Last Admin: 12/18/18 10:17 Dose: 1 patch Miscellaneous (Lidoderm Patch Removal) 1 each MC DAILY@2200 [facility] Last Admin: 12/17/18 21:43 Dose: 1 each (Non-Formulary) Northera 300 Mg Capsule 2 each PO 0700,1300,1900 [facility] Last Admin: 12/18/18 13:30 Dose: 2 each - Objective Vital Signs: Vital Signs Temperature 97.9 F 12/18/18 14:39 Pulse Rate 77 12/18/18 14:39 Respiratory Rate 18 12/18/18 14:39 Blood Pressure 166/97 12/18/18 14:39 O2 Sat by Pulse Oximetry (%) 100 12/18/18 08:40 Constitutional: Yes: Calm Cardiovascular: Yes: Regular Rate and Rhythm, S1, S2 Respiratory: Yes: CTA Bilaterally Gastrointestinal: Yes: Normal Bowel Sounds, Soft, Other (g tube) Edema: No Neurological: Yes: Alert, Oriented Labs: CBC, BMP 12/18/18 08:25 12/18/18 08:25 INR, PTT INR 1.05 (0.83-1.09) 12/14/18 00:45 Problem List - Problems (1) Aspiration pneumonia Assessment/Plan: iv abx cefepime and clindamycin Microbiology 12/14/18 14:30 Sputum - Expectorated Gram Stain - Final 12/14/18 14:30 Sputum - Expectorated Sputum Culture - Preliminary Pseudo Fluorescens/[place] Mr S Aureus Pending Organism history of pharyngeal cancer chest ct reviewed extensive right sided infiltrated in lower level dietary recommendation noted Code(s): J69.0 - PNEUMONITIS DUE TO INHALATION OF FOOD AND VOMIT Qualifiers: Aspiration pneumonia type: unspecified Laterality: bilateral Lung location: lower lobe of lung Qualified Code(s): J69.0 - Pneumonitis due to inhalation of food and vomit (2) Hemoptysis Assessment/Plan: iv abx Code(s): R04.2 - HEMOPTYSIS (3) Hypothyroid Assessment/Plan: synthroid Code(s): E03.9 - HYPOTHYROIDISM, UNSPECIFIED Qualifiers: Hypothyroidism type: unspecified Qualified Code(s): E03.9 - Hypothyroidism , unspecified
[2018-12-18] MEDS ORDERED: PT OWN MED DRAWER 7, Y5N ONE (21:37)
[2018-12-18] MEDS: ATORVASTATIN CA 20 MG TABLET (FP) PO SCH (22:11)
[2018-12-18] MEDS: LIDOCAINE PATCH REMOVAL MC SCH (22:11)
[2018-12-19] MEDS ORDERED: CEFEPIME HCL 1 GM VIAL (RESTRICTED TO ID) ONE ×3 (01:15→17:15)
[2018-12-19] MEDS ORDERED: DEXTROSE 5%-WATER 100 ML IVPB ONE ×3 (01:15→17:15)
[2018-12-19] MEDS: CLINDAMYCIN 600MG PREMIX IVPB 600 MG/50 ML BAG IVPB SCH ×3 (01:52→17:33)
[2018-12-19] MEDS: CEFEPIME 1 GM in DEXTROSE 5%-WATER 100 ML IVPB SCH ×3 (02:29→18:32)
[2018-12-19] MEDS: LEVOTHYROXINE NA 125 MCG TABLET (FP) PO SCH (06:52)
[2018-12-19] MEDS: GABAPENTIN 250 MG/5 ML ORAL SOLUTION, 470 ML BOTTLE GT SCH ×3 (06:52→22:14)
[2018-12-19] MEDS: HEPARIN NA (PORCINE) 5,000 UNITS/ML 1ML VIAL SQ SCH ×2 (09:12→22:14)
[2018-12-19] MEDS: LIDOCAINE 5% TOPICAL PATCH TP SCH (09:13)
[2018-12-19] MEDS: amLODIPine BESYLATE 5 MG TABLET (FP) PEG SCH (09:14)
--- NOTE | 2018-12-19 13:01 | PN ---
Progress Note (short form) - Note Progress Note: Feels comfortable. 1 episode of smaller volume dark hemoptysis since yesterday. Intake & Output 12/16/18 12/17/18 12/18/18 12/19/18 23:59 23:59 23:59 23:59 Intake Total 210 1450 810 550 Balance 210 1450 810 550 Last Vital Signs Temp Pulse Resp BP Pulse Ox 98.2 F 72 16 119/69 100 12/19/18 08:56 12/19/18 08:56 12/19/18 08:56 12/19/18 08:56 12/18/18 21:00 Active Medications Acetaminophen (Tylenol -) 650 mg PO Q4H PRN PRN Reason: FEVER Albuterol Sulfate (Ventolin 0.083% Nebulizer Soln -) 1 amp NEB RQID PRN PRN Reason: Dyspnea Amlodipine Besylate (Norvasc -) 2.[address] [facility] Last Admin: 12/19/18 09:14 Dose: Not Given Atorvastatin Calcium (Lipitor -) [address] [facility] Last Admin: 12/18/18 22:11 Dose: 20 mg Gabapentin (Neurontin Oral Liquid -) [address] [facility] Last Admin: 12/19/18 06:52 Dose: 100 mg Heparin Sodium (Porcine) (Heparin -) 5,[address] [facility] Last Admin: 12/19/18 09:12 Dose: 5,000 unit Cefepime HCl 1 gm/ Dextrose 100 mls @ 100 mls/hr IVPB Q8H-IV [facility]; Protocol Last Admin: 12/19/18 09:12 Dose: 100 mls/hr Clindamycin Phosphate (Cleocin 600 Mg Premix Ivpb -) 600 mg in 50 mls @ 100 mls /hr IVPB Q8H-IV [facility]; Protocol Last Admin: 12/19/18 09:12 Dose: 100 mls/hr Levothyroxine Sodium (Synthroid -) 125 mcg PO DAILY@0700 [facility] Last Admin: 12/19/18 06:52 Dose: 125 mcg Lidocaine (Lidoderm Patch -) [address] [facility] Last Admin: 12/19/18 09:13 Dose: 1 patch Miscellaneous (Lidoderm Patch Removal) 1 each MC DAILY@2200 [facility] Last Admin: 12/18/18 22:11 Dose: 1 each (Non-Formulary) Northera 300 Mg Capsule 2 each PO 0700,1300,1900 [facility] Last Admin: 12/19/18 12:44 Dose: 2 each Constitutional: Yes: Well Nourished, Calm Eyes: Yes: WNL HENT: Yes: Nasal Congestion Neck: Yes: WNL Cardiovascular: Yes: Regular Rate and Rhythm, S1, S2 Respiratory: Yes: Scattered rhonchi Gastrointestinal: Yes: Normal Bowel Sounds, Soft Extremities: Yes: WNL Edema: No Labs: Laboratory Results - last 24 hr 12/14/18 00:45 VBG pH 7.47 H POC VBG pCO2 41.7 POC VBG pO2 71.3 H VBG HCO3 29.8 H VBG O2 Sat ([place]) 95.3 H VBG Base Excess 5.9 H Problem List - Problems (1) Aspiration pneumonia Code(s): J69.0 - PNEUMONITIS DUE TO INHALATION OF FOOD AND VOMIT Qualifiers: Aspiration pneumonia type: unspecified Laterality: bilateral Lung location: lower lobe of lung Qualified Code(s): J69.0 - Pneumonitis due to inhalation of food and vomit (2) Hemoptysis Code(s): R04.2 - HEMOPTYSIS Assessment/Plan Pneumonia likely Aspiration Hemoptysis likely from above COPD h/o Pharyngeal Ca s/p RT HTN Hyperlipidemia - ABX per ID - monitor/quantify hemoptysis - inhaled bronchodilators - O2 to keep SpO2 >90% - f/u chest x-rays - enteral feeds - aspiration precautions - mouth care - DVT prophylaxis Dr Powell
--- NOTE | 2018-12-19 13:59 | PN ---
Progress Note, Physician History of Present Illness: Dyspnea and hemoptysis improved, afebrile. Orthostatic syncope much improved with Northera. Labile BP. - Current Medication List Current Medications: Active Medications Acetaminophen (Tylenol -) 650 mg PO Q4H PRN PRN Reason: FEVER Albuterol Sulfate (Ventolin 0.083% Nebulizer Soln -) 1 amp NEB RQID PRN PRN Reason: Dyspnea Amlodipine Besylate (Norvasc -) 2.5 mg PEG DAILY [facility] Last Admin: 12/19/18 09:14 Dose: Not Given Atorvastatin Calcium (Lipitor -) 20 mg PO HS [facility] Last Admin: 12/18/18 22:11 Dose: 20 mg Gabapentin (Neurontin Oral Liquid -) 100 mg GT TID [facility] Last Admin: 12/19/18 06:52 Dose: 100 mg Heparin Sodium (Porcine) (Heparin -) 5,000 unit SQ BID [facility] Last Admin: 12/19/18 09:12 Dose: 5,000 unit Cefepime HCl 1 gm/ Dextrose 100 mls @ 100 mls/hr IVPB Q8H-IV [facility]; Protocol Last Admin: 12/19/18 09:12 Dose: 100 mls/hr Clindamycin Phosphate (Cleocin 600 Mg Premix Ivpb -) 600 mg in 50 mls @ 100 mls /hr IVPB Q8H-IV [facility]; Protocol Last Admin: 12/19/18 09:12 Dose: 100 mls/hr Levothyroxine Sodium (Synthroid -) 125 mcg PO DAILY@0700 [facility] Last Admin: 12/19/18 06:52 Dose: 125 mcg Lidocaine (Lidoderm Patch -) 1 patch TP DAILY [facility] Last Admin: 12/19/18 09:13 Dose: 1 patch Miscellaneous (Lidoderm Patch Removal) 1 each MC DAILY@2200 [facility] Last Admin: 12/18/18 22:11 Dose: 1 each (Non-Formulary) Northera 300 Mg Capsule 2 each PO 0700,1300,1900 [facility] Last Admin: 12/19/18 12:44 Dose: 2 each - Objective Vital Signs: Vital Signs Temperature 98.2 F 12/19/18 08:56 Pulse Rate 72 12/19/18 08:56 Respiratory Rate 16 12/19/18 08:56 Blood Pressure 119/69 12/19/18 08:56 O2 Sat by Pulse Oximetry (%) 100 12/18/18 21:00 Constitutional: Yes: No Distress, Calm, Thin Neck: Yes: Supple Cardiovascular: Yes: Regular Rate and Rhythm Respiratory: Yes: Regular, CTA Bilaterally Gastrointestinal: Yes: Normal Bowel Sounds, Soft, Other (PEG in place) Edema: No Labs: CBC, BMP 12/18/18 08:25 12/18/18 08:25 INR, PTT INR 1.05 (0.83-1.09) 12/14/18 00:45 Problem List - Problems (1) Aspiration pneumonia Code(s): J69.0 - PNEUMONITIS DUE TO INHALATION OF FOOD AND VOMIT Qualifiers: Aspiration pneumonia type: unspecified Laterality: bilateral Lung location: lower lobe of lung Qualified Code(s): J69.0 - Pneumonitis due to inhalation of food and vomit (2) COPD (chronic obstructive pulmonary disease) Code(s): J44.9 - CHRONIC OBSTRUCTIVE PULMONARY DISEASE, UNSPECIFIED Qualifiers: COPD type: unspecified COPD Qualified Code(s): J44.9 - Chronic obstructive pulmonary disease, unspecified (3) Hemoptysis Code(s): R04.2 - HEMOPTYSIS (4) Autonomic postural hypotension Code(s): I95.1 - ORTHOSTATIC HYPOTENSION (5) CAD (coronary artery disease) Code(s): I25.10 - ATHSCL HEART DISEASE OF [place] CORONARY ARTERY W/O ANG PCTRS Qualifiers: Coronary Disease-Associated Artery/Lesion type: [place] artery [place] vs. transplanted heart: [place] heart Associated angina: without angina Qualified Code(s): I25.10 - Atherosclerotic heart disease of [place] coronary artery without angina pectoris (6) Dysautonomia orthostatic hypotension syndrome Code(s): G90.3 - MULTI-SYSTEM DEGENERATION OF THE AUTONOMIC NERVOUS SYSTEM (7) HLD (hyperlipidemia) Code(s): E78.5 - HYPERLIPIDEMIA, UNSPECIFIED Qualifiers: Hyperlipidemia type: pure hypercholesterolemia Qualified Code(s): E78.00 - Pure hypercholesterolemia, unspecified; E78.0 - Pure hypercholesterolemia (8) Hypothyroid Code(s): E03.9 - HYPOTHYROIDISM, UNSPECIFIED Qualifiers: Hypothyroidism type: unspecified Qualified Code(s): E03.9 - Hypothyroidism , unspecified (9) Labile essential hypertension Code(s): I10 - ESSENTIAL (PRIMARY) HYPERTENSION (10) Orthostatic hypotension Code(s): I95.1 - ORTHOSTATIC HYPOTENSION Assessment/Plan 1. Pneumonia likely Aspiration with hemoptysis and underlying COPD 2. History of syncope, orthostatic hypotension and profound autonomic dysfunction 3. HTN with labile BP 4. CAD (non-obstructive), angina pectoris 5. Diastolic dysfunction with class 0 NYHA classification heart failure 6. Hypercholesterolemia 7. Hypothyroidism 8. Head and neck CA s/p radiation therapy 9. Post PEG PLAN: 1. May use Amlodipine 2.5 mg qd as needed if BP is severely high 2. Patient is on Northera 600 tid for orthostatic hypotension and autonomic dysfunction 3. Empiric antibiotic coverage per ID, BD and O2 to keep SpO2 >90% 4. Continue Lipitor 20 qhs 5. Enteral feeds, aspiration precautions, DVT prophylaxis
--- NOTE | 2018-12-19 14:48 | PN ---
Progress Note, Physician Chief Complaint: AWAKE ALERT BEDSIDE +HEMOPTYSIS THIS AM NO FEVER - Current Medication List Current Medications: Active Medications Acetaminophen (Tylenol -) 650 mg PO Q4H PRN PRN Reason: FEVER Albuterol Sulfate (Ventolin 0.083% Nebulizer Soln -) 1 amp NEB RQID PRN PRN Reason: Dyspnea Amlodipine Besylate (Norvasc -) 2.5 mg PEG DAILY [facility] Last Admin: 12/19/18 09:14 Dose: Not Given Atorvastatin Calcium (Lipitor -) 20 mg PO HS [facility] Last Admin: 12/18/18 22:11 Dose: 20 mg Gabapentin (Neurontin Oral Liquid -) 100 mg GT TID [facility] Last Admin: 12/19/18 14:29 Dose: 100 mg Heparin Sodium (Porcine) (Heparin -) 5,000 unit SQ BID [facility] Last Admin: 12/19/18 09:12 Dose: 5,000 unit Cefepime HCl 1 gm/ Dextrose 100 mls @ 100 mls/hr IVPB Q8H-IV [facility]; Protocol Last Admin: 12/19/18 09:12 Dose: 100 mls/hr Clindamycin Phosphate (Cleocin 600 Mg Premix Ivpb -) 600 mg in 50 mls @ 100 mls /hr IVPB Q8H-IV [facility]; Protocol Last Admin: 12/19/18 09:12 Dose: 100 mls/hr Levothyroxine Sodium (Synthroid -) 125 mcg PO DAILY@0700 [facility] Last Admin: 12/19/18 06:52 Dose: 125 mcg Lidocaine (Lidoderm Patch -) 1 patch TP DAILY [facility] Last Admin: 12/19/18 09:13 Dose: 1 patch Miscellaneous (Lidoderm Patch Removal) 1 each MC DAILY@2200 [facility] Last Admin: 12/18/18 22:11 Dose: 1 each (Non-Formulary) Northera 300 Mg Capsule 2 each PO 0700,1300,1900 [facility] Last Admin: 12/19/18 12:44 Dose: 2 each - Objective Vital Signs: Vital Signs Temperature 98.2 F 12/19/18 08:56 Pulse Rate 72 12/19/18 08:56 Respiratory Rate 16 12/19/18 08:56 Blood Pressure 119/69 12/19/18 08:56 O2 Sat by Pulse Oximetry (%) 100 12/18/18 21:00 Constitutional: Yes: Mild Distress Cardiovascular: Yes: Regular Rate and Rhythm Respiratory: Yes: Diminished, On Nasal O2 Gastrointestinal: Yes: Soft Genitourinary: Yes: WNL Musculoskeletal: Yes: WNL Extremities: Yes: WNL Edema: No Integumentary: Yes: Other (LEFT SUBSCAPULAR SOFT MASS LIPOMA NON-TENDER) Neurological: Yes: WNL ...Motor Strength: WNL Psychiatric: Yes: WNL Labs: CBC, BMP 12/18/18 08:25 12/18/18 08:25 INR, PTT INR 1.05 (0.83-1.09) 12/14/18 00:45 Problem List - Problems (1) Aspiration pneumonia Code(s): J69.0 - PNEUMONITIS DUE TO INHALATION OF FOOD AND VOMIT Qualifiers: Aspiration pneumonia type: unspecified Laterality: bilateral Lung location: lower lobe of lung Qualified Code(s): J69.0 - Pneumonitis due to inhalation of food and vomit (2) COPD (chronic obstructive pulmonary disease) Code(s): J44.9 - CHRONIC OBSTRUCTIVE PULMONARY DISEASE, UNSPECIFIED Qualifiers: COPD type: unspecified COPD Qualified Code(s): J44.9 - Chronic obstructive pulmonary disease, unspecified (3) Hemoptysis Code(s): R04.2 - HEMOPTYSIS (4) History of throat cancer Code(s): Z85.819 - PRSNL HX OF MALIG NEOPLM OF UNSP SITE LIP,ORAL CAV,& PHARYNX (5) Aspiration into respiratory tract Code(s): T17.908A - UNSP FB IN RESP TRACT, PART UNSP CAUSING OTH INJURY, INIT Qualifiers: Encounter type: initial encounter Qualified Code(s): T17.908A - Unspecified foreign body in respiratory tract, part unspecified causing other injury, initial encounter (6) Autonomic postural hypotension Code(s): I95.1 - ORTHOSTATIC HYPOTENSION (7) Benign prostatic hypertrophy Code(s): N40.0 - BENIGN PROSTATIC HYPERPLASIA WITHOUT LOWER URINRY TRACT SYMP (8) CAD (coronary artery disease) Code(s): I25.10 - ATHSCL HEART DISEASE OF [place] CORONARY ARTERY W/O ANG PCTRS Qualifiers: Coronary Disease-Associated Artery/Lesion type: [place] artery [place] vs. transplanted heart: [place] heart Associated angina: without angina Qualified Code(s): I25.10 - Atherosclerotic heart disease of [place] coronary artery without angina pectoris Assessment/Plan IV ABX PER ID NEBS/02 SUPPORT PULMONARY F/U DVT PROPHYLAXIS HOLD HEPARIN WHILE ACTIVE HEMOPTYSIS OOB TO CHAIR [facility] VIA GTUBE
[2018-12-19] MEDS: ATORVASTATIN CA 20 MG TABLET (FP) PO SCH (22:14)
[2018-12-19] MEDS: LIDOCAINE PATCH REMOVAL MC SCH (22:15)
[2018-12-20] MEDS ORDERED: DEXTROSE 5%-WATER 100 ML IVPB ONE ×3 (00:38→17:48)
[2018-12-20] MEDS ORDERED: CEFEPIME HCL 1 GM VIAL (RESTRICTED TO ID) ONE ×3 (00:38→17:47)
[2018-12-20] MEDS: CLINDAMYCIN 600MG PREMIX IVPB 600 MG/50 ML BAG IVPB SCH ×3 (01:47→17:50)
[2018-12-20] MEDS: CEFEPIME 1 GM in DEXTROSE 5%-WATER 100 ML IVPB SCH ×3 (02:09→17:50)
[2018-12-20] MEDS: GABAPENTIN 250 MG/5 ML ORAL SOLUTION, 470 ML BOTTLE GT SCH ×3 (06:56→22:10)
[2018-12-20] MEDS: LEVOTHYROXINE NA 125 MCG TABLET (FP) PO SCH (06:56)
[2018-12-20] MEDS: HEPARIN NA (PORCINE) 5,000 UNITS/ML 1ML VIAL SQ SCH (09:03)
[2018-12-20] MEDS: LIDOCAINE 5% TOPICAL PATCH TP SCH (09:04)
[2018-12-20] MEDS: amLODIPine BESYLATE 5 MG TABLET (FP) PEG SCH (09:10)
--- NOTE | 2018-12-20 10:24 | PN ---
Progress Note, Physician Chief Complaint: AWAKE ALERT DENIES FEVER OR CHILLS HAD LOW BP THIS MORNING - Current Medication List Current Medications: Active Medications Acetaminophen (Tylenol -) 650 mg PO Q4H PRN PRN Reason: FEVER Albuterol Sulfate (Ventolin 0.083% Nebulizer Soln -) 1 amp NEB RQID PRN PRN Reason: Dyspnea Amlodipine Besylate (Norvasc -) 2.5 mg PEG DAILY [facility] Last Admin: 12/20/18 09:10 Dose: Not Given Atorvastatin Calcium (Lipitor -) 20 mg PO HS [facility] Last Admin: 12/19/18 22:14 Dose: 20 mg Gabapentin (Neurontin Oral Liquid -) 100 mg GT TID [facility] Last Admin: 12/20/18 06:56 Dose: 100 mg Heparin Sodium (Porcine) (Heparin -) 5,000 unit SQ BID [facility] Last Admin: 12/20/18 09:03 Dose: 5,000 unit Cefepime HCl 1 gm/ Dextrose 100 mls @ 100 mls/hr IVPB Q8H-IV [facility]; Protocol Last Admin: 12/20/18 09:04 Dose: 100 mls/hr Clindamycin Phosphate (Cleocin 600 Mg Premix Ivpb -) 600 mg in 50 mls @ 100 mls /hr IVPB Q8H-IV [facility]; Protocol Last Admin: 12/20/18 09:03 Dose: 100 mls/hr Levothyroxine Sodium (Synthroid -) 125 mcg PO DAILY@0700 [facility] Last Admin: 12/20/18 06:56 Dose: 125 mcg Lidocaine (Lidoderm Patch -) 1 patch TP DAILY [facility] Last Admin: 12/20/18 09:04 Dose: 1 patch Miscellaneous (Lidoderm Patch Removal) 1 each MC DAILY@2200 [facility] Last Admin: 12/19/18 22:15 Dose: 1 each (Non-Formulary) Northera 300 Mg Capsule 2 each PO 0700,1300,1900 [facility] Last Admin: 12/20/18 06:56 Dose: 2 each - Objective Vital Signs: Vital Signs Temperature 97.8 F 12/20/18 09:49 Pulse Rate 72 12/20/18 09:49 Respiratory Rate 18 12/20/18 09:49 Blood Pressure 106/62 12/20/18 09:49 O2 Sat by Pulse Oximetry (%) 98 12/19/18 21:00 Constitutional: Yes: No Distress HENT: Yes: Other Cardiovascular: Yes: Regular Rate and Rhythm Respiratory: Yes: Diminished, On Nasal O2 Gastrointestinal: Yes: Soft, Other (GTUBE) Musculoskeletal: Yes: Muscle Weakness Labs: CBC, BMP 12/18/18 08:25 12/18/18 08:25 INR, PTT INR 1.05 (0.83-1.09) 12/14/18 00:45 Problem List - Problems (1) Aspiration pneumonia Code(s): J69.0 - PNEUMONITIS DUE TO INHALATION OF FOOD AND VOMIT Qualifiers: Aspiration pneumonia type: unspecified Laterality: bilateral Lung location: lower lobe of lung Qualified Code(s): J69.0 - Pneumonitis due to inhalation of food and vomit (2) COPD (chronic obstructive pulmonary disease) Code(s): J44.9 - CHRONIC OBSTRUCTIVE PULMONARY DISEASE, UNSPECIFIED Qualifiers: COPD type: unspecified COPD Qualified Code(s): J44.9 - Chronic obstructive pulmonary disease, unspecified (3) Hemoptysis Code(s): R04.2 - HEMOPTYSIS (4) History of throat cancer Code(s): Z85.819 - PRSNL HX OF MALIG NEOPLM OF UNSP SITE LIP,ORAL CAV,& PHARYNX (5) Aspiration into respiratory tract Code(s): T17.908A - UNSP FB IN RESP TRACT, PART UNSP CAUSING OTH INJURY, INIT Qualifiers: Encounter type: initial encounter Qualified Code(s): T17.908A - Unspecified foreign body in respiratory tract, part unspecified causing other injury, initial encounter (6) Autonomic postural hypotension Code(s): I95.1 - ORTHOSTATIC HYPOTENSION (7) Benign prostatic hypertrophy Code(s): N40.0 - BENIGN PROSTATIC HYPERPLASIA WITHOUT LOWER URINRY TRACT SYMP (8) CAD (coronary artery disease) Code(s): I25.10 - ATHSCL HEART DISEASE OF [place] CORONARY ARTERY W/O ANG PCTRS Qualifiers: Coronary Disease-Associated Artery/Lesion type: [place] artery [place] vs. transplanted heart: [place] heart Associated angina: without angina Qualified Code(s): I25.10 - Atherosclerotic heart disease of [place] coronary artery without angina pectoris Assessment/Plan IV ABX PER ID ON CEFIPIME AND CLINDAMYCIN MONITOR BP ON AMLODIPINE NEBS/02 SUPPORT PULMONARY F/U DVT PROPHYLAXIS HOLD HEPARIN WHILE ACTIVE HEMOPTYSIS OOB TO CHAIR [facility] VIA GTUBE
--- NOTE | 2018-12-20 11:55 | PN ---
Progress Note (short form) - Note Progress Note: Feels comfortable. 1 episode of smaller volume dark hemoptysis since yesterday. Intake & Output 12/17/18 12/18/18 12/19/18 12/20/18 23:59 23:59 23:59 23:59 Intake Total 1303 615 0931 990 Balance 3677 043 9793 990 Last Vital Signs Temp Pulse Resp BP Pulse Ox 97.8 F 72 18 106/62 98 12/20/18 09:49 12/20/18 09:49 12/20/18 09:49 12/20/18 09:49 12/19/18 21:00 Active Medications Acetaminophen (Tylenol -) 650 mg PO Q4H PRN PRN Reason: FEVER Albuterol Sulfate (Ventolin 0.083% Nebulizer Soln -) 1 amp NEB RQID PRN PRN Reason: Dyspnea Amlodipine Besylate (Norvasc -) 2.5 mg PEG DAILY [facility] Last Admin: 12/20/18 09:10 Dose: Not Given Atorvastatin Calcium (Lipitor -) 20 mg PO HS [facility] Last Admin: 12/19/18 22:14 Dose: 20 mg Gabapentin (Neurontin Oral Liquid -) 100 mg GT TID [facility] Last Admin: 12/20/18 06:56 Dose: 100 mg Heparin Sodium (Porcine) (Heparin -) 5,000 unit SQ BID [facility] Last Admin: 12/20/18 09:03 Dose: 5,000 unit Cefepime HCl 1 gm/ Dextrose 100 mls @ 100 mls/hr IVPB Q8H-IV [facility]; Protocol Last Admin: 12/20/18 09:04 Dose: 100 mls/hr Clindamycin Phosphate (Cleocin 600 Mg Premix Ivpb -) 600 mg in 50 mls @ 100 mls /hr IVPB Q8H-IV [facility]; Protocol Last Admin: 12/20/18 09:03 Dose: 100 mls/hr Levothyroxine Sodium (Synthroid -) 125 mcg PO DAILY@0700 [facility] Last Admin: 12/20/18 06:56 Dose: 125 mcg Lidocaine (Lidoderm Patch -) 1 patch TP DAILY [facility] Last Admin: 12/20/18 09:04 Dose: 1 patch Miscellaneous (Lidoderm Patch Removal) 1 each MC DAILY@2200 [facility] Last Admin: 12/19/18 22:15 Dose: 1 each (Non-Formulary) Northera 300 Mg Capsule 2 each PO 0700,1300,1900 [facility] Last Admin: 12/20/18 06:56 Dose: 2 each Constitutional: Yes: Well Nourished, Calm Eyes: Yes: WNL HENT: Yes: Nasal Congestion Neck: Yes: WNL Cardiovascular: Yes: Regular Rate and Rhythm, S1, S2 Respiratory: Yes: Scattered rhonchi Gastrointestinal: Yes: Normal Bowel Sounds, Soft Extremities: Yes: WNL Edema: No Labs: Problem List - Problems (1) Aspiration pneumonia Code(s): J69.0 - PNEUMONITIS DUE TO INHALATION OF FOOD AND VOMIT Qualifiers: Aspiration pneumonia type: unspecified Laterality: bilateral Lung location: lower lobe of lung Qualified Code(s): J69.0 - Pneumonitis due to inhalation of food and vomit (2) Hemoptysis Code(s): R04.2 - HEMOPTYSIS Assessment/Plan Pneumonia likely Aspiration Hemoptysis likely from above COPD h/o Pharyngeal Ca s/p RT HTN Hyperlipidemia - ABX per ID - monitor/quantify hemoptysis - inhaled bronchodilators - O2 to keep SpO2 >90% - aspiration precautions - mouth care - DVT prophylaxis Dr Powell
--- NOTE | 2018-12-20 11:58 | PN ---
Progress Note (short form) - Note Progress Note: Chief Complaint: Events noted, notes reviewed, denies any fever or chills, denies any chest pain or dyspnea History of Present Illness: Seen and examined. Events noted, notes reviewed, denies any fever or chills, denies any chest pain or dyspnea Medications: Current Medications Acetaminophen (Tylenol -) 650 mg PO Q4H PRN PRN Reason: FEVER Albuterol Sulfate (Ventolin 0.083% Nebulizer Soln -) 1 amp NEB RQID PRN PRN Reason: Dyspnea Amlodipine Besylate (Norvasc -) 2.5 mg PEG DAILY [facility] Last Admin: 12/20/18 09:10 Dose: Not Given Atorvastatin Calcium (Lipitor -) 20 mg PO HS [facility] Last Admin: 12/19/18 22:14 Dose: 20 mg Gabapentin (Neurontin Oral Liquid -) 100 mg GT TID [facility] Last Admin: 12/20/18 06:56 Dose: 100 mg Heparin Sodium (Porcine) (Heparin -) 5,000 unit SQ BID [facility] Last Admin: 12/20/18 09:03 Dose: 5,000 unit Cefepime HCl 1 gm/ Dextrose 100 mls @ 100 mls/hr IVPB Q8H-IV [facility]; Protocol Last Admin: 12/20/18 09:04 Dose: 100 mls/hr Clindamycin Phosphate (Cleocin 600 Mg Premix Ivpb -) 600 mg in 50 mls @ 100 mls /hr IVPB Q8H-IV [facility]; Protocol Last Admin: 12/20/18 09:03 Dose: 100 mls/hr Levothyroxine Sodium (Synthroid -) 125 mcg PO DAILY@0700 [facility] Last Admin: 12/20/18 06:56 Dose: 125 mcg Lidocaine (Lidoderm Patch -) 1 patch TP DAILY [facility] Last Admin: 12/20/18 09:04 Dose: 1 patch Miscellaneous (Lidoderm Patch Removal) 1 each MC DAILY@2200 [facility] Last Admin: 12/19/18 22:15 Dose: 1 each (Non-Formulary) Northera 300 Mg Capsule 2 each PO 0700,1300,1900 [facility] Last Admin: 12/20/18 06:56 Dose: 2 each Vital Signs: Last Vital Signs Temp Pulse Resp BP Pulse Ox 97.8 F 72 18 106/62 98 12/20/18 09:49 12/20/18 09:49 10/13/19 09:49 12/20/18 09:49 12/19/18 21:00 Intake & Output 12/17/18 12/18/18 12/19/18 12/20/18 23:59 23:59 23:59 23:59 Intake Total 4643 423 4470 990 Balance 8891 637 4385 990 Neck: Supple Negative JVD Respiratory: Diminished Breath Sounds at the Bases Bilaterally Cardiovascular: S1 S2 Regular Rate and Rhythm Gastrointestinal: Soft Benign Normal Bowel Sounds Ext: Negative Edema Labs: CBC, BMP 12/18/18 08:25 12/18/18 08:25 Hepatic Panel Total Bilirubin 0.6 mg/dL (0.2-1) 12/18/18 08:25 AST 13 U/L (15-37) L 12/18/18 08:25 ALT 14 U/L (13-61) 12/18/18 08:25 Alkaline Phosphatase 61 U/L (45-117) 12/18/18 08:25 Albumin 3.0 g/dl (3.4-5.0) L 12/18/18 08:25 INR, PTT INR 1.05 (0.83-1.09) 12/14/18 00:45 Assessment/Plan ASSESSMENT: 1. Aspiration Pneumonia- hemoptysis, recurrent- resolving 2. Recurrent syncope related to postural hypotension referable to profound dysautonomia post head and neck radiation therapy 3. HTN, labile blood pressure 4. CAD non-obstructive CAD, angina pectoris 5. Diastolic LV dysfuntion with clinical class 0 NYHA classification LV failure 6. Hyperlipidemia 7. Hypothyroidism 8. 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 Benign prostatic hypertrophy PLAN: 1. Continue Norvasc at the above noted dosage with caution related to the above noted profound dysautonomia, only when blood pressure is severely elevated 2. Continue Northera at the above noted dosage 3. Continue Lipitor 4. Antibiotic as per the primary team Kirstin Guardado M.D.
[2018-12-20] MEDS: ATORVASTATIN CA 20 MG TABLET (FP) PO SCH (22:10)
[2018-12-20] MEDS: LIDOCAINE PATCH REMOVAL MC SCH (22:11)
[2018-12-21] MEDS ORDERED: CEFEPIME HCL 1 GM VIAL (RESTRICTED TO ID) ONE ×3 (02:12→17:37)
[2018-12-21] MEDS ORDERED: DEXTROSE 5%-WATER 100 ML IVPB ONE ×3 (02:12→17:37)
[2018-12-21] MEDS: CLINDAMYCIN 600MG PREMIX IVPB 600 MG/50 ML BAG IVPB SCH ×3 (02:40→17:43)
[2018-12-21] MEDS: CEFEPIME 1 GM in DEXTROSE 5%-WATER 100 ML IVPB SCH ×3 (02:40→17:43)
[2018-12-21] MEDS: LEVOTHYROXINE NA 125 MCG TABLET (FP) PO SCH (06:29)
[2018-12-21] MEDS: GABAPENTIN 250 MG/5 ML ORAL SOLUTION, 470 ML BOTTLE GT SCH ×3 (06:29→21:44)
[2018-12-21] MEDS: LIDOCAINE 5% TOPICAL PATCH TP SCH (10:36)
[2018-12-21] MEDS: amLODIPine BESYLATE 5 MG TABLET (FP) PEG SCH (10:44)
--- NOTE | 2018-12-21 10:59 | PN ---
Progress Note, Physician History of Present Illness: Dyspnea and hemoptysis improved, afebrile. Orthostatic syncope much improved with Northera. Labile BP. - Current Medication List Current Medications: Active Medications Acetaminophen (Tylenol -) 650 mg PO Q4H PRN PRN Reason: FEVER Albuterol Sulfate (Ventolin 0.083% Nebulizer Soln -) 1 amp NEB RQID PRN PRN Reason: Dyspnea Amlodipine Besylate (Norvasc -) 2.5 mg PEG DAILY [facility] Last Admin: 12/21/18 10:44 Dose: 2.5 mg Atorvastatin Calcium (Lipitor -) 20 mg PO HS [facility] Last Admin: 12/20/18 22:10 Dose: 20 mg Gabapentin (Neurontin Oral Liquid -) 100 mg GT TID [facility] Last Admin: 12/21/18 06:29 Dose: 100 mg Heparin Sodium (Porcine) (Heparin -) 5,000 unit SQ BID [facility] Last Admin: 12/20/18 09:03 Dose: 5,000 unit Cefepime HCl 1 gm/ Dextrose 100 mls @ 100 mls/hr IVPB Q8H-IV [facility]; Protocol Last Admin: 12/21/18 10:48 Dose: 100 mls/hr Clindamycin Phosphate (Cleocin 600 Mg Premix Ivpb -) 600 mg in 50 mls @ 100 mls /hr IVPB Q8H-IV [facility]; Protocol Last Admin: 12/21/18 10:48 Dose: 100 mls/hr Levothyroxine Sodium (Synthroid -) 125 mcg PO DAILY@0700 [facility] Last Admin: 12/21/18 06:29 Dose: 125 mcg Lidocaine (Lidoderm Patch -) 1 patch TP DAILY [facility] Last Admin: 12/20/18 09:04 Dose: 1 patch Miscellaneous (Lidoderm Patch Removal) 1 each MC DAILY@2200 [facility] Last Admin: 12/20/18 22:11 Dose: 1 each (Non-Formulary) Northera 300 Mg Capsule 2 each PO 0700,1300,1900 [facility] Last Admin: 12/21/18 06:29 Dose: 2 each - Objective Vital Signs: Vital Signs Temperature 97.8 F 12/21/18 10:00 Pulse Rate 67 12/21/18 10:00 Respiratory Rate 18 12/21/18 10:00 Blood Pressure 126/78 12/21/18 10:00 O2 Sat by Pulse Oximetry (%) 97 12/20/18 21:00 Constitutional: Yes: No Distress, Calm, Thin Neck: Yes: Supple Cardiovascular: Yes: Regular Rate and Rhythm Respiratory: Yes: Regular, CTA Bilaterally Gastrointestinal: Yes: Normal Bowel Sounds, Soft, Other (PEG in place) Edema: No Labs: CBC, BMP 12/18/18 08:25 12/18/18 08:25 INR, PTT INR 1.05 (0.83-1.09) 12/14/18 00:45 Problem List - Problems (1) Aspiration pneumonia Code(s): J69.0 - PNEUMONITIS DUE TO INHALATION OF FOOD AND VOMIT Qualifiers: Aspiration pneumonia type: unspecified Laterality: bilateral Lung location: lower lobe of lung Qualified Code(s): J69.0 - Pneumonitis due to inhalation of food and vomit (2) COPD (chronic obstructive pulmonary disease) Code(s): J44.9 - CHRONIC OBSTRUCTIVE PULMONARY DISEASE, UNSPECIFIED Qualifiers: COPD type: unspecified COPD Qualified Code(s): J44.9 - Chronic obstructive pulmonary disease, unspecified (3) Hemoptysis Code(s): R04.2 - HEMOPTYSIS (4) Autonomic postural hypotension Code(s): I95.1 - ORTHOSTATIC HYPOTENSION (5) CAD (coronary artery disease) Code(s): I25.10 - ATHSCL HEART DISEASE OF [place] CORONARY ARTERY W/O ANG PCTRS Qualifiers: Coronary Disease-Associated Artery/Lesion type: [place] artery [place] vs. transplanted heart: [place] heart Associated angina: without angina Qualified Code(s): I25.10 - Atherosclerotic heart disease of [place] coronary artery without angina pectoris (6) Dysautonomia orthostatic hypotension syndrome Code(s): G90.3 - MULTI-SYSTEM DEGENERATION OF THE AUTONOMIC NERVOUS SYSTEM (7) HLD (hyperlipidemia) Code(s): E78.5 - HYPERLIPIDEMIA, UNSPECIFIED Qualifiers: Hyperlipidemia type: pure hypercholesterolemia Qualified Code(s): E78.00 - Pure hypercholesterolemia, unspecified; E78.0 - Pure hypercholesterolemia (8) Hypothyroid Code(s): E03.9 - HYPOTHYROIDISM, UNSPECIFIED Qualifiers: Hypothyroidism type: unspecified Qualified Code(s): E03.9 - Hypothyroidism , unspecified (9) Labile essential hypertension Code(s): I10 - ESSENTIAL (PRIMARY) HYPERTENSION (10) Orthostatic hypotension Code(s): I95.1 - ORTHOSTATIC HYPOTENSION Assessment/Plan 1. Pneumonia likely Aspiration with hemoptysis and underlying COPD 2. History of syncope, orthostatic hypotension and profound autonomic dysfunction 3. HTN with labile BP 4. CAD (non-obstructive), angina pectoris 5. Diastolic dysfunction with class 0 NYHA classification heart failure 6. Hypercholesterolemia 7. Hypothyroidism 8. Head and neck CA s/p radiation therapy 9. Post PEG 10. BPH PLAN: 1. May use Amlodipine 2.5 mg qd as needed if BP is severely high 2. Patient is on Northera 600 tid for orthostatic hypotension and autonomic dysfunction 3. Empiric antibiotic coverage per ID, BD and O2 to keep SpO2 >90% 4. Continue Lipitor 20 qhs 5. Enteral feeds, aspiration precautions, DVT prophylaxis
--- NOTE | 2018-12-21 11:12 | PN ---
Progress Note (short form) - Note Progress Note: Feels comfortable. 1 episode of less volume dark hemoptysis since yesterday. Intake & Output 12/18/18 12/19/18 12/20/18 12/21/18 23:59 23:59 23:59 23:59 Intake Total 810 1700 2190 400 Balance 810 1700 2190 400 Last Vital Signs Temp Pulse Resp BP Pulse Ox 97.8 F 67 18 126/78 97 12/21/18 10:00 12/21/18 10:00 12/21/18 10:00 12/21/18 10:00 12/20/18 21:00 Active Medications Acetaminophen (Tylenol -) 650 mg PO Q4H PRN PRN Reason: FEVER Albuterol Sulfate (Ventolin 0.083% Nebulizer Soln -) 1 amp NEB RQID PRN PRN Reason: Dyspnea Amlodipine Besylate (Norvasc -) 2.5 mg PEG DAILY [facility] Last Admin: 12/21/18 10:44 Dose: 2.5 mg Atorvastatin Calcium (Lipitor -) 20 mg PO HS [facility] Last Admin: 12/20/18 22:10 Dose: 20 mg Gabapentin (Neurontin Oral Liquid -) 100 mg GT TID [facility] Last Admin: 12/21/18 06:29 Dose: 100 mg Heparin Sodium (Porcine) (Heparin -) 5,000 unit SQ BID [facility] Last Admin: 12/20/18 09:03 Dose: 5,000 unit Cefepime HCl 1 gm/ Dextrose 100 mls @ 100 mls/hr IVPB Q8H-[facility]; Protocol Last Admin: 12/21/18 10:48 Dose: 100 mls/hr Clindamycin Phosphate (Cleocin 600 Mg Premix Ivpb -) 600 mg in 50 mls @ 100 mls /hr IVPB Q8H-[facility]; Protocol Last Admin: 12/21/18 10:48 Dose: 100 mls/hr Levothyroxine Sodium (Synthroid -) 125 mcg PO DAILY@0700 [facility] Last Admin: 12/21/18 06:29 Dose: 125 mcg Lidocaine (Lidoderm Patch -) 1 patch TP DAILY [facility] Last Admin: 12/20/18 09:04 Dose: 1 patch Miscellaneous (Lidoderm Patch Removal) 1 each MC DAILY@2200 [facility] Last Admin: 12/20/18 22:11 Dose: 1 each (Non-Formulary) Northera 300 Mg Capsule 2 each PO 0700,1300,1900 [facility] Last Admin: 12/21/18 06:29 Dose: 2 each Constitutional: Yes: Well Nourished, Calm Eyes: Yes: WNL HENT: Yes: Nasal Congestion Neck: Yes: WNL Cardiovascular: Yes: Regular Rate and Rhythm, S1, S2 Respiratory: Yes: Scattered rhonchi Gastrointestinal: Yes: Normal Bowel Sounds, Soft Extremities: Yes: WNL Edema: No Labs: Problem List - Problems (1) Aspiration pneumonia Code(s): J69.0 - PNEUMONITIS DUE TO INHALATION OF FOOD AND VOMIT Qualifiers: Aspiration pneumonia type: unspecified Laterality: bilateral Lung location: lower lobe of lung Qualified Code(s): J69.0 - Pneumonitis due to inhalation of food and vomit (2) Hemoptysis Code(s): R04.2 - HEMOPTYSIS Assessment/Plan Pneumonia likely Aspiration Hemoptysis likely from above COPD h/o Pharyngeal Ca s/p RT HTN Hyperlipidemia - ABX per ID - monitor/quantify hemoptysis - inhaled bronchodilators - O2 to keep SpO2 >90% - aspiration precautions - mouth care - DVT prophylaxis Dr Powell
--- NOTE | 2018-12-21 11:23 | PN ---
Progress Note, Physician Chief Complaint: Hemoptysis Pharyngeal CA Pneumonia History of Present Illness: Previous notes and evens reviewed awake and alert NAD sts hemoptysis has improved and less blood noted in sputum BP has improved - Current Medication List Current Medications: Active Medications Acetaminophen (Tylenol -) 650 mg PO Q4H PRN PRN Reason: FEVER Albuterol Sulfate (Ventolin 0.083% Nebulizer Soln -) 1 amp NEB RQID PRN PRN Reason: Dyspnea Amlodipine Besylate (Norvasc -) 2.5 mg PEG DAILY [facility] Last Admin: 12/21/18 10:44 Dose: 2.5 mg Atorvastatin Calcium (Lipitor -) 20 mg PO HS [facility] Last Admin: 12/20/18 22:10 Dose: 20 mg Gabapentin (Neurontin Oral Liquid -) 100 mg GT TID [facility] Last Admin: 12/21/18 06:29 Dose: 100 mg Heparin Sodium (Porcine) (Heparin -) 5,000 unit SQ BID [facility] Last Admin: 12/20/18 09:03 Dose: 5,000 unit Cefepime HCl 1 gm/ Dextrose 100 mls @ 100 mls/hr IVPB Q8H-[facility]; Protocol Last Admin: 12/21/18 10:48 Dose: 100 mls/hr Clindamycin Phosphate (Cleocin 600 Mg Premix Ivpb -) 600 mg in 50 mls @ 100 mls /hr IVPB Q8H-[facility]; Protocol Last Admin: 12/21/18 10:48 Dose: 100 mls/hr Levothyroxine Sodium (Synthroid -) 125 mcg PO DAILY@0700 [facility] Last Admin: 12/21/18 06:29 Dose: 125 mcg Lidocaine (Lidoderm Patch -) 1 patch TP DAILY [facility] Last Admin: 12/20/18 09:04 Dose: 1 patch Miscellaneous (Lidoderm Patch Removal) 1 each MC DAILY@2200 [facility] Last Admin: 12/20/18 22:11 Dose: 1 each (Non-Formulary) Northera 300 Mg Capsule 2 each PO 0700,1300,1900 [facility] Last Admin: 12/21/18 06:29 Dose: 2 each - Objective Vital Signs: Vital Signs Temperature 97.8 F 12/21/18 10:00 Pulse Rate 67 12/21/18 10:00 Respiratory Rate 18 12/21/18 10:00 Blood Pressure 126/78 12/21/18 10:00 O2 Sat by Pulse Oximetry (%) 97 12/20/18 21:00 Constitutional: Yes: No Distress, Calm Eyes: Yes: Conjunctiva Clear HENT: Yes: Atraumatic Cardiovascular: Yes: Regular Rate and Rhythm Respiratory: Yes: Regular, On Nasal O2, Rhonchi Gastrointestinal: Yes: Normal Bowel Sounds, Soft, Other (G tube) Musculoskeletal: Yes: WNL Extremities: Yes: WNL Edema: No Neurological: Yes: Alert, Oriented Psychiatric: Yes: Alert, Oriented Labs: CBC, BMP 12/18/18 08:25 12/18/18 08:25 INR, PTT INR 1.05 (0.83-1.09) 12/14/18 00:45 Microbiology 12/14/18 00:45 Blood - Peripheral Venous Blood Culture - Final NO GROWTH AFTER 5 DAYS INCUBATION 12/14/18 00:45 Blood - Peripheral Venous Blood Culture - Final NO GROWTH AFTER 5 DAYS INCUBATION 12/14/18 14:30 Sputum - Expectorated Gram Stain - Final 12/14/18 14:30 Sputum - Expectorated Sputum Culture - Final Pseudo Fluorescens/[place] Mr S Aureus Haemophilus Parainfluenzae Ii 12/14/18 14:30 Urine For Antigen Detection Legionella Antigen - Final 12/14/18 14:30 Urine For Antigen Detection Streptococcus pneumoniae Antigen (M - Final Problem List - Problems (1) Acute prerenal azotemia Assessment/Plan: -improving -BUN/Cr 19.6/0.8 -monitor renal function Code(s): R79.89 - OTHER SPECIFIED ABNORMAL FINDINGS OF BLOOD CHEMISTRY (2) COPD (chronic obstructive pulmonary disease) Assessment/Plan: -Pulm on board -keep SpO2 >90% -O2 via [place] -Bronchodilators Code(s): J44.9 - CHRONIC OBSTRUCTIVE PULMONARY DISEASE, UNSPECIFIED Qualifiers: COPD type: unspecified COPD Qualified Code(s): J44.9 - Chronic obstructive pulmonary disease, unspecified (3) Hemoptysis Assessment/Plan: -Pulm on board -Cefepime and Clindamycin Code(s): R04.2 - HEMOPTYSIS (4) CAD (coronary artery disease) Assessment/Plan: -Atorvastatin Code(s): I25.10 - ATHSCL HEART DISEASE OF [place] CORONARY ARTERY W/O ANG PCTRS Qualifiers: Coronary Disease-Associated Artery/Lesion type: [place] artery [place] vs. transplanted heart: [place] heart Associated angina: without angina Qualified Code(s): I25.10 - Atherosclerotic heart disease of [place] coronary artery without angina pectoris (5) HLD (hyperlipidemia) Assessment/Plan: -Atrovastatin Code(s): E78.5 - HYPERLIPIDEMIA, UNSPECIFIED Qualifiers: Hyperlipidemia type: pure hypercholesterolemia Qualified Code(s): E78.00 - Pure hypercholesterolemia, unspecified; E78.0 - Pure hypercholesterolemia (6) HTN (hypertension) Assessment/Plan: -Amlodipine -low Na diet Code(s): I10 - ESSENTIAL (PRIMARY) HYPERTENSION Qualifiers: Hypertension type: essential hypertension Qualified Code(s): I10 - Essential (primary) hypertension (7) PNA (pneumonia) Assessment/Plan: -Pulm and ID on board -Cefepime and Clindamycin -keep SpO2 >90% -O2 via [place] -Bronchodilators -no leukocytosis -afebrile -Chest CTA shows extensive right sided pneumonia Code(s): J18.9 - PNEUMONIA, UNSPECIFIED ORGANISM Qualifiers: Pneumonia type: aspiration pneumonia Assessment/Plan see problem list dvt ppx
--- NOTE | 2018-12-21 14:58 | PN ---
Progress Note, Physician History of Present Illness: AWAKE, ALERT IN BED NO C/O CHEST PAIN/ DYSPNEA NO C/O FEVER/ CHILLS NO HEMOPTYSIS TODAY - Current Medication List Current Medications: Active Medications Acetaminophen (Tylenol -) 650 mg PO Q4H PRN PRN Reason: FEVER Albuterol Sulfate (Ventolin 0.083% Nebulizer Soln -) 1 amp NEB RQID PRN PRN Reason: Dyspnea Amlodipine Besylate (Norvasc -) 2.5 mg PEG DAILY [facility] Last Admin: 12/21/18 10:44 Dose: 2.5 mg Atorvastatin Calcium (Lipitor -) 20 mg PO HS [facility] Last Admin: 12/20/18 22:10 Dose: 20 mg Gabapentin (Neurontin Oral Liquid -) 100 mg GT TID [facility] Last Admin: 12/21/18 14:08 Dose: 100 mg Heparin Sodium (Porcine) (Heparin -) 5,000 unit SQ BID [facility] Last Admin: 12/20/18 09:03 Dose: 5,000 unit Cefepime HCl 1 gm/ Dextrose 100 mls @ 100 mls/hr IVPB Q8H-IV [facility]; Protocol Last Admin: 12/21/18 10:48 Dose: 100 mls/hr Clindamycin Phosphate (Cleocin 600 Mg Premix Ivpb -) 600 mg in 50 mls @ 100 mls /hr IVPB Q8H-IV [facility]; Protocol Last Admin: 12/21/18 10:48 Dose: 100 mls/hr Levothyroxine Sodium (Synthroid -) 125 mcg PO DAILY@0700 [facility] Last Admin: 12/21/18 06:29 Dose: 125 mcg Lidocaine (Lidoderm Patch -) 1 patch TP DAILY [facility] Last Admin: 12/20/18 09:04 Dose: 1 patch Miscellaneous (Lidoderm Patch Removal) 1 each MC DAILY@2200 [facility] Last Admin: 12/20/18 22:11 Dose: 1 each (Non-Formulary) Northera 300 Mg Capsule 2 each PO 0700,1300,1900 [facility] Last Admin: 12/21/18 14:08 Dose: 2 each - Objective Vital Signs: Vital Signs Temperature 97.8 F 12/21/18 10:00 Pulse Rate 67 12/21/18 10:00 Respiratory Rate 18 12/21/18 10:00 Blood Pressure 126/78 12/21/18 10:00 O2 Sat by Pulse Oximetry (%) 97 12/21/18 09:00 Constitutional: Yes: No Distress Eyes: Yes: Conjunctiva Clear Cardiovascular: Yes: Regular Rate and Rhythm, S1, S2 Respiratory: Yes: Other (+ CREPITATIONS BASES) Gastrointestinal: Yes: Normal Bowel Sounds, Soft. 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
[2018-12-21] MEDS: LIDOCAINE PATCH REMOVAL MC SCH (21:44)
[2018-12-21] MEDS: ATORVASTATIN CA 20 MG TABLET (FP) PO SCH (21:44)
[2018-12-21] MEDS: HEPARIN NA (PORCINE) 5,000 UNITS/ML 1ML VIAL SQ SCH (21:44)
[2018-12-22] MEDS ORDERED: DEXTROSE 5%-WATER 100 ML IVPB ONE ×2 (02:24→08:54)
[2018-12-22] MEDS ORDERED: CEFEPIME HCL 1 GM VIAL (RESTRICTED TO ID) ONE ×2 (02:24→08:53)
[2018-12-22] MEDS: CEFEPIME 1 GM in DEXTROSE 5%-WATER 100 ML IVPB SCH ×2 (02:35→09:07)
[2018-12-22] MEDS: CLINDAMYCIN 600MG PREMIX IVPB 600 MG/50 ML BAG IVPB SCH ×2 (02:35→10:27)
[2018-12-22] MEDS: GABAPENTIN 250 MG/5 ML ORAL SOLUTION, 470 ML BOTTLE GT SCH (06:25)
[2018-12-22] MEDS: LEVOTHYROXINE NA 125 MCG TABLET (FP) PO SCH (06:26)
[2018-12-22 07:31] VITALS: TEMP 98.4
[2018-12-22] MEDS: HEPARIN NA (PORCINE) 5,000 UNITS/ML 1ML VIAL SQ SCH (09:09)
[2018-12-22] MEDS: LIDOCAINE 5% TOPICAL PATCH TP SCH (09:10)
[2018-12-22] MEDS: amLODIPine BESYLATE 5 MG TABLET (FP) PEG SCH (09:10)
--- NOTE | 2018-12-22 09:17 | DS ---
Physical Examination Vital Signs: Vital Signs Temperature 98.4 F 12/22/18 06:00 Pulse Rate 71 12/22/18 06:00 Respiratory Rate 20 12/22/18 06:00 Blood Pressure 127/84 12/22/18 06:00 O2 Sat by Pulse Oximetry (%) 97 12/21/18 21:00 Cardiovascular: Yes: Regular Rate and Rhythm Respiratory: Yes: On Nasal O2, Rhonchi Gastrointestinal: Yes: Normal Bowel Sounds, Soft. No: Tenderness Labs: CBC, BMP 12/18/18 08:25 12/18/18 08:25 Discharge Summary Problems reviewed: Yes Reason For Visit: HEMOPTYSIS,PNEUMONIA Current Active Problems Acute prerenal azotemia (Acute) Aspiration pneumonia (Acute) COPD (chronic obstructive pulmonary disease) (Acute) Hemoptysis (Acute) History of throat cancer (Acute) Hospital Course: Problems (1) Acute prerenal azotemia Assessment/Plan: -improving -BUN/Cr 19.6/0.8 -monitor renal function Code(s): R79.89 - OTHER SPECIFIED ABNORMAL FINDINGS OF BLOOD CHEMISTRY (2) COPD (chronic obstructive pulmonary disease) Assessment/Plan: -Pulm on board -keep SpO2 >90% -O2 via [place] -Bronchodilators Code(s): J44.9 - CHRONIC OBSTRUCTIVE PULMONARY DISEASE, UNSPECIFIED Qualifiers: COPD type: unspecified COPD Qualified Code(s): J44.9 - Chronic obstructive pulmonary disease, unspecified (3) Hemoptysis Assessment/Plan: -Pulm on board -Cefepime and Clindamycin Code(s): R04.2 - HEMOPTYSIS (4) CAD (coronary artery disease) Assessment/Plan: -Atorvastatin Code(s): I25.10 - ATHSCL HEART DISEASE OF [place] CORONARY ARTERY W/O ANG PCTRS Qualifiers: Coronary Disease-Associated Artery/Lesion type: [place] artery [place] vs. transplanted heart: [place] heart Associated angina: without angina Qualified Code(s): I25.10 - Atherosclerotic heart disease of [place] coronary artery without angina pectoris (5) HLD (hyperlipidemia) Assessment/Plan: -Atrovastatin Code(s): E78.5 - HYPERLIPIDEMIA, UNSPECIFIED Qualifiers: Hyperlipidemia type: pure hypercholesterolemia Qualified Code(s): E78.00 - Pure hypercholesterolemia, unspecified; E78.0 - Pure hypercholesterolemia (6) HTN (hypertension) Assessment/Plan: -Amlodipine -low Na diet Code(s): I10 - ESSENTIAL (PRIMARY) HYPERTENSION Qualifiers: Hypertension type: essential hypertension Qualified Code(s): I10 - Essential (primary) hypertension (7) PNA (pneumonia) Assessment/Plan: -Pulm and ID on board -Cefepime and Clindamycin--to bacrim 20 ml bid -keep SpO2 >90% -O2 via NC -Bronchodilators -no leukocytosis -afebrile -Chest CTA shows extensive right sided pneumonia Code(s): J18.9 - PNEUMONIA, UNSPECIFIED ORGANISM Qualifiers: Pneumonia type: aspiration pneumonia Condition: Stable - Instructions Referrals: Fern Murillo MD [Primary Care Provider] - 1 Week - Home Medications Comprehensive Discharge Medication List: Ambulatory Orders Aspirin [ASA -] 81 mg PO DAILY 10/20/15 Cholecalciferol (Vitamin D3) [Vitamin D3] 2,000 unit PO DAILY 10/20/15 Cyanocobalamin (Vitamin B-12) [Vitamin B-12] 1,000 mcg PO DAILY 10/20/15 Levothyroxine Sodium [Unithroid] 135 mcg PO DAILY 10/20/15 Rosuvastatin Calcium [Crestor] 10 mg PO HS 10/20/15 Gabapentin Liquid [Neurontin Oral Liquid -] 100 mg GT TID #120 ml 02/19/18 Albuterol 0.083% Nebulizer [place] [Ventolin 0.083% Nebulizer Soln -] 1 amp NEB RQID PRN amp 12/22/18 Amlodipine Besylate [Norvasc -] 2.5 mg PEG DAILY tablet 12/22/18 Lidocaine 5% Patch [Lidoderm -] 1 patch TP DAILY #30 patch 12/22/18 Sulfamethoxazole/Trimethoprim [Bactrim Oral Suspension -] 20 ml PO BID #560 ml 12/22/18
[2018-12-22 10:31] VITALS: BP 103/65; PULSE 74
--- NOTE | 2018-12-22 12:18 | PN ---
Progress Note (short form) - Note Progress Note: Feels comfortable. Overall better. No hemoptysis Intake & Output 12/19/18 12/20/18 12/21/18 12/22/18 23:59 23:59 23:59 23:59 Intake Total 1700 2190 1400 200 Balance 1700 2190 1400 200 Last Vital Signs Temp Pulse Resp BP Pulse Ox 98.4 F 74 20 103/65 99 12/22/18 10:00 12/22/18 10:00 12/22/18 10:00 12/22/18 10:00 12/22/18 09:00 Constitutional: Yes: Well Nourished, Calm Eyes: Yes: WNL HENT: Yes: Nasal Congestion Neck: Yes: WNL Cardiovascular: Yes: Regular Rate and Rhythm, S1, S2 Respiratory: Yes: Scattered rhonchi Gastrointestinal: Yes: Normal Bowel Sounds, Soft Extremities: Yes: WNL Edema: No Labs: Problem List - Problems (1) Aspiration pneumonia Code(s): J69.0 - PNEUMONITIS DUE TO INHALATION OF FOOD AND VOMIT Qualifiers: Aspiration pneumonia type: unspecified Laterality: bilateral Lung location: lower lobe of lung Qualified Code(s): J69.0 - Pneumonitis due to inhalation of food and vomit (2) Hemoptysis Code(s): R04.2 - HEMOPTYSIS Assessment/Plan Pneumonia likely Aspiration Hemoptysis likely from above COPD h/o Pharyngeal Ca s/p RT HTN Hyperlipidemia - inhaled bronchodilators - aspiration precautions - mouth care - DC planning Dr Powell
== END 2018-12-22 12:13 | disposition home or self-care (01) | DRG 178 ==
LOC: JER 22:10 → JERBED 12-14 02:08 → J5S 12-14 06:27
PROVIDERS: ADMIT Family Medicine; ATTEND Family Medicine
DX: J69.0 Pneumonitis due to inhalation of food and vomit (principal); R04.2 Hemoptysis; G90.3 Multi-system degeneration of the autonomic nervous system; E03.9 Hypothyroidism, unspecified; J44.9 Chronic obstructive pulmonary disease, unspecified; I95.1 Orthostatic hypotension; E78.5 Hyperlipidemia, unspecified; I10 Essential (primary) hypertension; I25.119 Atherosclerotic heart disease of native coronary artery with unspecified angina pectoris; N40.0 Benign prostatic hyperplasia without lower urinary tract symptoms; D64.9 Anemia, unspecified
CPT/HCPCS: 36415; 71045-TC-FY; 71275-TC; 80048; 80053; 82803; 83880; 84443; 84484; 85025; 85027; 85610; 85730; 86850; 86900; 86901; 87040; 87070; 87186; 87205; 87807; 87899; 93005; 93010; 99284-25; J1644; J7030

== ENCOUNTER 2019-02-04 16:22 | Inpatient (IN) | payer OTHER, BC ==
[2019-02-04] MEDS ORDERED: ASPIRIN 81 MG CHEWABLE TABLETS PO ONE (16:25)
--- NOTE | 2019-02-04 16:26 | PDOC ---
Rapid Medical Evaluation Time Seen by Provider: 02/04/19 16:23 Medical Evaluation: Allergies Allergy/AdvReac Type Severity Reaction Status Date / Time tamsulosin HCl [From Flomax] AdvReac Intermediate dizziness Verified 12/13/18 22 :30 02/04/19 16:24 HPI: SOB and hempotosis 2 days PE: Pt on 2 L O2 no gross deficits ORDERS: Cardiac work up Discharge Disposition - Diagnosis Hemoptysis - Referrals - Patient Instructions - Post Discharge Activity
[2019-02-04] MEDS ORDERED: ASPIRIN 81 MG CHEWABLE TABLETS ONE (16:32)
[2019-02-04 17:21] LABS: BASO % 0.2 % (0-2.0); EOS % 1.9 % (0-4.5); HEMATOCRIT 36.3 % (35.4-49); LYMPH % 6.5 % (8-40); MCH 30.3 pg (25.7-33.7); MCHC 33.1 g/dl (32.0-35.9); MEAN CELL VOLUME 91.8 fl (80-96); MONO % 6.1 % (3.8-10.2); NEUT % 85.3 % (42.8-82.8); RBC 3.96 M/mm3 (4.00-5.60); RDW 14.3 % (11.9-15.9); WHITE BLOOD COUNT 8.8 K/mm3 (4.0-10.0)
--- NOTE | 2019-02-04 17:37 | PDOC ---
History of Present Illness - General Chief Complaint: Shortness of Breath Stated Complaint: COUGHING BLOOD/SHORTNESS OF BREATH Time Seen by Provider: 02/04/19 16:23 - History of Present Illness Initial Comments: 02/04/19 17:37 HPI: 73 y/o M with hx of autonomic orthostatic hypotension, COPD on 2L home O2, HLD, hypothyroidism, DM, COPD, pharyngeal CA s/p chemoradiation and GTube presenting with hemoptysis. Symptoms started last week initially with light blood mixed with sputum however symptoms worsened over the past 3 days. Patient reports increased volume of bright red blood and clots with cough occuring several times an hour. Also reports productive greenish/brown sputum. Patient feels sensation in his throat which he feels causes difficulty breathing. He also reports generalized weakness and a Tmax 103 at home that resolved with tylenol 2 days ago. Denies chest pain, n/v, PO intake, abd pain, dysuria, diarrhea, BPR. Of note, patient was on outpatient abx for pna 2 weeks ago PMHx: as noted above ROS: as noted SHx: Denies tobacco use; no alcohol use; no rec drugs Allergies: tamsulosin ROS: GENERAL/CONSTITUTIONAL: No fever or chills. +generalized weakness. HEAD, EYES, EARS, NOSE AND THROAT: No change in vision. No ear pain or discharge. No sore throat. CARDIOVASCULAR: No chest pain; +shortness of breath RESPIRATORY: +hemoptysis. GASTROINTESTINAL: No nausea, vomiting, diarrhea or constipation. GENITOURINARY: No dysuria, frequency, or change in urination. MUSCULOSKELETAL: No joint or muscle swelling or pain. No neck or back pain. SKIN: No rash NEUROLOGIC: No headache, vertigo, loss of consciousness, or change in strength/ sensation. ENDOCRINE: No increased thirst. No abnormal weight change HEMATOLOGIC/LYMPHATIC: No anemia, easy bleeding, or history of blood clots. ALLERGIC/IMMUNOLOGIC: No hives or skin allergy. PE: GENERAL: Awake, alert, and fully oriented, no acute distress HEAD: No signs of trauma, normocephalic, atraumatic EYES: EOMI, sclera anicteric, conjunctiva clear ENT: Auricles normal inspection, hearing grossly normal, nares patent and without bleeding or blood clots, oropharynx clear without exudates, no active bleeding, no sores, no blood clots. Moist mucosa NECK: Normal ROM, no lymphadenopathy LUNGS: No increased work of breathing, symmetrical chest rise, crackles in the right lower lung base HEART: Regular rate and rhythm, normal S1 and S2, no murmurs, peripheral pulses 2+ and equal bilaterally. ABDOMEN: G tube present with no signs of infection, soft, nondistended, nontender, normoactive bowel sounds. No guarding, no rebound. No masses. No CVAT EXTREMITIES: Normal inspection, Normal range of motion, no edema. No clubbing or cyanosis. NEUROLOGICAL: Cranial nerves II through XII grossly intact. Normal speech, normal gait, no focal sensorimotor deficits SKIN: Warm, Dry, normal turgor, no rashes or lesions noted Past History - Past Medical History Allergies/Adverse Reactions: Allergies Allergy/AdvReac Type Severity Reaction Status Date / Time tamsulosin HCl [From Flomax] AdvReac Intermediate dizziness Verified 02/04/19 16 :27 Home Medications: Ambulatory Orders Aspirin [ASA -] 81 mg PO DAILY 10/20/15 Cholecalciferol (Vitamin D3) [Vitamin D3] 2,000 unit PO DAILY 10/20/15 Cyanocobalamin (Vitamin B-12) [Vitamin B-12] 1,000 mcg PO DAILY 10/20/15 Levothyroxine Sodium [Unithroid] 135 mcg PO DAILY 10/20/15 Rosuvastatin Calcium [Crestor] 10 mg PO HS 10/20/15 Gabapentin Liquid [Neurontin Oral Liquid -] 100 mg GT TID #120 ml 02/19/18 Albuterol 0.083% Nebulizer Malissa [Ventolin 0.083% Nebulizer Soln -] 1 amp NEB RQID PRN amp 12/22/18 Amlodipine Besylate [Norvasc -] 2.5 mg PEG DAILY tablet 12/22/18 Lidocaine 5% Patch [Lidoderm -] 1 patch TP DAILY #30 patch 12/22/18 Sulfamethoxazole/Trimethoprim [Bactrim Oral Suspension -] 20 ml PO BID #560 ml 12/22/18 Anemia: Yes Asthma: No Cancer: Yes (Tongue and throat CA 2010) Cardiac Disorders: No CVA: No COPD: No CHF: No Dementia: No Diabetes: No GI Disorders: Yes (GERD) Disorders: Yes (BPH) HTN: Yes Hypercholesterolemia: Yes Liver Disease: No Seizures: No Thyroid Disease: Yes (hypo) Other medical history: aspirating pneumonia now has feeding tube - Surgical History Abdominal Surgery: Yes (feeding tube) Appendectomy: No Cardiac Surgery: No Cholecystectomy: No GI Surgery: Yes (G tube) Lung Surgery: No Neurologic Surgery: No Orthopedic Surgery: Yes (lft hand) - Immunization History Immunization Up to Date: Yes - Psycho Social/Smoking Cessation Hx Smoking History: Never smoked Have you smoked in the past 12 months: No Information on smoking cessation initiated: No Hx Alcohol Use: No Drug/Substance Use Hx: No Substance Use Type: None Hx Substance Use Treatment: No *Physical Exam - Vital Signs Last Vital Signs Temp Pulse Resp BP Pulse Ox 97.8 F 94 H 19 165/96 91 L 02/04/19 16:25 02/04/19 16:25 02/04/19 16:25 02/04/19 16:25 02/04/19 16:25 ED Treatment Course - LABORATORY CBC & Chemistry Diagram: 02/04/19 17:00 02/04/19 17:15 - ADDITIONAL ORDERS Additional order review: 02/04/19 17:00 RBC 3.96 L MCV 91.8 MCHC 33.1 RDW 14.3 Neutrophils % 85.3 H Lymphocytes % 6.5 L D Monocytes % 6.1 Eosinophils % 1.9 Basophils % 0.2 - RADIOLOGY Radiology Studies Ordered: Category Date Time Status CHEST X-RAY PORTABLE* [RAD] Stat Radiology 02/04/19 17:02 Ordered - Medications Given in the ED: ED Medications Discontinued Medications Generic Name Dose Route Start Last Admin Trade Name Freq PRN Reason Stop Dose Admin Aspirin 162 mg 02/04/19 16:25 02/04/19 16:30 Asa - PO 02/04/19 16:26 162 mg ONCE ONE Administration Medical Decision Making - Medical Decision Making 02/04/19 18:07 73 y/o M with hx of autonomic orthostatic hypotension, COPD on 2L home O2, HLD, hypothyroidism, DM, COPD, pharyngeal CA s/p chemoradiation and GTube presenting with hemoptysis and productive sputum associated with Tmax 103. Initial sats 91 % improved to 97% on 2LNC, HR 94. PE significant for right lower lung crackles. -sepsis order set, cxr -ivf, vanc/zosyn, orfirmev -will treat for HCAP and admit for pna given has been treated for pna 2 weeks ago on outpatient basis as well as was hospitalized 6 weeks ago for pna 02/04/19 18:31 wbc wnl cxr with possible right lower lobe infiltrate along right heart border; pending final read will proceed to CTA given hemoptysis may occur 2/2 PE or malignancy; patient also states was due for repeat CTA per Dr Murillo's instructions 02/04/19 18:[address] Sanam Patterson med surg for pna Discharge - Discharge Information Problems reviewed: Yes Clinical Impression/Diagnosis: Hemoptysis Pneumonia Qualifiers: Pneumonia type: due to unspecified organism Laterality: right Lung location: lower lobe of lung Qualified Code(s): J18.9 - Pneumonia, unspecified organism - Admission Yes - Follow up/Referral - Patient Discharge Instructions - Post Discharge Activity
[2019-02-04 17:58] LABS: MEAN PLT VOLUME 8.9 fl (7.5-11.1); PLATELET COUNT 124 K/MM3 (134-434)
[2019-02-04 17:59] LABS: INR 1.02 (0.83-1.09)
[2019-02-04 18:02] LABS: ACTIVATED PTT 30.6 SECONDS (25.2-36.5); VENOUS PC02 66.8 mmHg (38-52); VENOUS PH 7.34 (7.31-7.41); VENOUS PO2 < 49 mmHg (28-48)
[2019-02-04] MEDS ORDERED: LIDOCAINE 5% TOPICAL PATCH TP ONE (18:19)
[2019-02-04] MEDS ORDERED: PIPERACILLIN/TAZOB 3.375 GM 3.375 GM in DEXTROSE 5%-WATER - 50 ML IVPB ONE (18:22)
[2019-02-04] MEDS ORDERED: VANCOMYCIN 1 GM PREMIX - 1 GM/200 ML BAG IVPB ONE (18:22)
[2019-02-04] MEDS ORDERED: SODIUM CHLORIDE 1,000 ML IV STA (18:22)
[2019-02-04] MEDS ORDERED: VANCOMYCIN 1 GRAM (PRE-DOCKED) 1,000 MG/250 ML BAG IVPB ONE (18:38)
[2019-02-04] MEDS ORDERED: LIDOCAINE 5% TOPICAL PATCH ONE (18:38)
[2019-02-04] MEDS ORDERED: PIPERACILLIN/TAZOB 3.375 GM 3.375 GM/50 ML BAG IVPB ONE (18:39)
[2019-02-04 18:41] LABS: ALBUMIN 3.4 g/dl (3.4-5.0); ALK PHOS 73 U/L (45-117); ANION GAP 4 MMOL/L (8-16); BILIRUBIN,TOTAL 0.7 mg/dL (0.2-1); BLOOD UREA NITROGEN 33.6 mg/dL (7-18); CALCIUM 9.3 mg/dL (8.5-10.1); CHLORIDE 100 mmol/L (98-107); CO2 36 mmol/L (21-32); CREATININE 0.8 mg/dL (0.55-1.3); GLUCOSE,RANDOM 105 mg/dL (74-106); SGOT/AST 44 U/L (15-37); SGPT/ALT 16 U/L (13-61); SODIUM 140 mmol/L (136-145); TOT PROT 7.7 g/dl (6.4-8.2)
[2019-02-04] MEDS ORDERED: ACETAMINOPHEN INJECTION 100 ML IVPB ONE (18:48)
[2019-02-04 18:54] LABS: URINE APPEARANCE TURBID; URINE BILIRUBIN NEGATIVE (NEGATIVE); URINE COLOR YELLOW; URINE GLUCOSE (UA) NEGATIVE (NEGATIVE); URINE KETONE NEGATIVE (NEGATIVE); URINE LEUK ESTERASE NEGATIVE (NEGATIVE); URINE NITRITE NEGATIVE (NEGATIVE); URINE PROTEIN NEGATIVE (NEGATIVE)
[2019-02-04] MEDS ORDERED: ACETAMINOPHEN 1000 MG/100 ML VIAL (NON FORMULARY) IVPB ONE (19:03)
[2019-02-04] MEDS ORDERED: ALBUTEROL SO4 0.083% IH SOL 2.5 MG/3 ML VIAL.NEB. NEB PRN (20:25)
--- NOTE | 2019-02-04 21:31 | HP ---
CHIEF COMPLAINT: hemoptysis and fever PCP:Dr. Murillo HISTORY OF PRESENT ILLNESS: This is a 73 year old male with history of pharyngeal cancer treated with radiation and chemotherpay in 2011, PEG placement in June 2017 (follows with Hematology/Oncologist -Dr. Qureshi at [facility]) and labilr blood pressures(sees Dr. Rodriguez for autonomic dysfunction, SBP 60-250, on who presents reporting a fever of 103 2 days ago and significant hemoptysis. He dneid shortness of breath, chest pain, dizziness ER course was notable for: (1)CXR - right sided pneumonia, received IV Vancomycin and Pippercillin Recent Travel: denies PAST MEDICAL HISTORY: pharyngeal cancer PAST SURGICAL HISTORY: denies Social History: Smoking:no Alcohol:no Drugs: no Allergies tamsulosin HCl [From Flomax] Adverse Reaction (Intermediate, Verified 02/04/19 16:27) dizziness HOME MEDICATIONS: Home Medications Medication Instructions Recorded Aspirin [ASA -] 81 mg PO DAILY 10/20/15 Cholecalciferol (Vitamin D3) 2,000 unit PO DAILY 10/20/15 [Vitamin D3] Cyanocobalamin (Vitamin B-12) 1,000 mcg PO DAILY 10/20/15 [Vitamin B-12] Levothyroxine Sodium [Unithroid] 135 mcg PO DAILY 10/20/15 Rosuvastatin Calcium [Crestor] 10 mg PO HS 10/20/15 Gabapentin Liquid [Neurontin Oral 100 mg GT TID #120 ml 02/19/18 Liquid -] Albuterol 0.083% Nebulizer Malissa 1 amp NEB RQID PRN amp 12/22/18 [Ventolin 0.083% Nebulizer Soln -] Amlodipine Besylate [Norvasc -] 2.5 mg PEG DAILY tablet 12/22/18 Lidocaine 5% Patch [Lidoderm -] 1 patch TP DAILY #30 patch 12/22/18 Sulfamethoxazole/Trimethoprim 20 ml PO BID #560 ml 12/22/18 [Bactrim Oral Suspension -] REVIEW OF SYSTEMS CONSTITUTIONAL: Absent: fever, chills, diaphoresis, generalized weakness, malaise, loss of appetite, weight change HEENT: Absent: rhinorrhea, nasal congestion, throat pain, throat swelling, difficulty swallowing, mouth swelling, ear pain, eye pain, visual changes CARDIOVASCULAR: Absent: chest pain, syncope, palpitations, irregular heart rate, lightheadedness , peripheral edema RESPIRATORY: Absent: cough, shortness of breath, dyspnea with exertion, orthopnea, wheezing, stridor, hemoptysis GASTROINTESTINAL: Absent: abdominal pain, abdominal distension, nausea, vomiting, diarrhea, constipation, melena, hematochezia GENITOURINARY: Absent: dysuria, frequency, urgency, hesitancy, hematuria, flank pain, genital pain MUSCULOSKELETAL: Absent: myalgia, arthralgia, joint swelling, back pain, neck pain SKIN: Absent: rash, itching, pallor HEMATOLOGIC/IMMUNOLOGIC: Absent: easy bleeding, easy bruising, lymphadenopathy, frequent infections ENDOCRINE: Absent: unexplained weight gain, unexplained weight loss, heat intolerance, cold intolerance NEUROLOGIC: Absent: headache, focal weakness or paresthesias, dizziness, unsteady gait, seizure, mental status changes, bladder or bowel incontinence PSYCHIATRIC: Absent: anxiety, depression, suicidal or homicidal ideation, hallucinations. PHYSICAL EXAMINATION Vital Signs - 24 hr 02/04/19 02/04/19 02/04/19 16:25 17:02 17:35 Temperature 97.8 F 99.3 F Pulse Rate 94 H 90 Pulse Rate [ Left Radial] Respiratory 19 16 Rate Blood Pressure 165/96 180/96 H Blood Pressure [Left Arm] O2 Sat by Pulse 91 L 97 97 Oximetry (%) 02/04/19 02/04/19 02/04/19 18:51 19:21 20:21 Temperature Pulse Rate Pulse Rate [ 98 H 94 H Left Radial] Respiratory 16 18 Rate Blood Pressure Blood Pressure 202/102 H 179/92 H 161/93 [Left Arm] O2 Sat by Pulse 90 L 95 Oximetry (%) GENERAL: awake alert and fully oriented no acute distress HEAD: normal EYES: pupils equal round and reactive to light EARS, NOSE, THROAT: ears normal nares patent oropharynx clear without exudates NECK: normal LUNGS:congestion and crackles present to auscultation no accessory muscle use nonlabored breathing effort HEART: regular rate and rhythm normal S1 and S2 ABDOMEN: nontender PEG tube in place, nonerythematous site no guarding MUSCULOSKELETAL: normal range of motion at all joints no bony deformities or tenderness UPPER EXTREMITIES: 2+ pulses warm well-perfused LOWER EXTREMITIES: 2+ pulses, warm well-perfused no pitting edema NEUROLOGICAL: no neuro focal deficits PSYCHIATRIC: cooperative good eye contact appropriate mood and affect SKIN: warm dry normal turgor no rashes or lesions noted normal capillary refill. Laboratory Results - last 24 hr 02/04/19 02/04/19 02/04/19 17:00 17:15 17:15 WBC 8.8 RBC 3.96 L Hgb 12.0 Hct 36.3 MCV 91.8 MCH 30.3 MCHC 33.1 RDW 14.3 Plt Count 124 L D MPV 8.9 D Absolute Neuts (auto) 7.5 Neutrophils % 85.3 H Lymphocytes % 6.5 L D Monocytes % 6.1 Eosinophils % 1.9 Basophils % 0.2 Nucleated RBC % 0 PT with INR INR PTT (Actin FS) VBG pH POC VBG pCO2 POC VBG pO2 VBG HCO3 VBG O2 Sat (Fabby) VBG Base Excess Sodium 140 Potassium 5.0 Chloride 100 Carbon Dioxide 36 H Anion Gap 4 L BUN 33.6 H Creatinine 0.8 Est GFR (CKD-EPI)AfAm 103.44 Est GFR (CKD-EPI)NonAf 89.25 Random Glucose 105 Lactic Acid Calcium 9.3 Magnesium 2.3 Total Bilirubin 0.7 AST 44 H ALT 16 Alkaline Phosphatase 73 Creatine Kinase 115 Troponin I < 0.02 Total Protein 7.7 Albumin 3.4 Urine Color Urine Appearance Urine pH Ur Specific [place] Urine Protein Urine Glucose (UA) Urine Ketones Urine Blood Urine Nitrite Urine Bilirubin Urine Urobilinogen Ur Leukocyte Esterase 02/04/19 02/04/19 02/04/19 17:19 17:19 17:19 WBC RBC Hgb Hct MCV MCH MCHC RDW Plt Count MPV Absolute Neuts (auto) Neutrophils % Lymphocytes % Monocytes % Eosinophils % Basophils % Nucleated RBC % PT with INR 12.00 INR 1.02 PTT (Actin FS) 30.6 VBG pH 7.34 POC VBG pCO2 66.8 H POC VBG pO2 < 49 H VBG HCO3 35.5 H VBG O2 Sat (Fabby) 27.3 L VBG Base Excess 8.0 H Sodium Potassium Chloride Carbon Dioxide Anion Gap BUN Creatinine Est GFR (CKD-EPI)AfAm Est GFR (CKD-EPI)NonAf Random Glucose Lactic Acid 1.3 Calcium Magnesium Total Bilirubin AST ALT Alkaline Phosphatase Creatine Kinase Troponin I Total Protein Albumin Urine Color Urine Appearance Urine pH Ur Specific [place] Urine Protein Urine Glucose (UA) Urine Ketones Urine Blood Urine Nitrite Urine Bilirubin Urine Urobilinogen Ur Leukocyte Esterase 02/04/19 17:47 WBC RBC Hgb Hct MCV MCH MCHC RDW Plt Count MPV Absolute Neuts (auto) Neutrophils % Lymphocytes % Monocytes % Eosinophils % Basophils % Nucleated RBC % PT with INR INR PTT (Actin FS) VBG pH POC VBG pCO2 POC VBG pO2 VBG HCO3 VBG O2 Sat (Fabby) VBG Base Excess Sodium Potassium Chloride Carbon Dioxide Anion Gap BUN Creatinine Est GFR (CKD-EPI)AfAm Est GFR (CKD-EPI)NonAf Random Glucose Lactic Acid Calcium Magnesium Total Bilirubin AST ALT Alkaline Phosphatase Creatine Kinase Troponin I Total Protein Albumin Urine Color Yellow Urine Appearance Turbid Urine pH 8.0 Ur Specific [place] 1.020 Urine Protein Negative Urine Glucose (UA) Negative Urine Ketones Negative Urine Blood Negative Urine Nitrite Negative Urine Bilirubin Negative Urine Urobilinogen 1.0 Ur Leukocyte Esterase Negative ASSESSMENT/PLAN: Mr. Avila is a 73 year old male with history of pharyngeal cancer treated with radiation and chemotherapy in 2011, PEG placement in June 2017 (follows with Hematology/Oncologist -Dr. Qureshi at [facility]) and labile blood pressures(sees Dr. Rodriguez for autonomic dysfunction, SBP 60-250) who presents reporting a fever and significant hemoptysis. #1 Fever/Community Acquired Pneumonia Workup with normal WBC and elevated lactic acid of 2.5 currently afebrile. In ER received one dosage of IV Vancomycin and Pipercillin Continue with IV Pipercillin 3.125mg q8hr Continue with IVF NS at 60cc/hr #2 Hemoptysis/ Hx of Pharygeal Cancer Hgb 12.0, hct 36.3, platelets 124,000, no pancytopenia, calcium level CTA of chest pending Aspirin placed on hold Dr. Maki consulted of Pulmonary #3 Hypertension(Hx with labile blood pressures/autonomic dysfunction) Continue with amlodipine and home medication - Nothare(NF) for blood pressure control as ordered by Dr. Rodriguez #4 Hypothyroidism Continue with synthroid #5 Hyperlipidemia Continue with statin therapy FEN IVF NS at 60cc/hr Monitor electrolytes closely Jevity feeding by PEG DVT Prophylaxsis TEDS and SCD's Visit type - Emergency Visit Emergency Visit: Yes ED Registration Date: 02/04/19 Care time: The patient presented to the Emergency Department on the above date and was hospitalized for further evaluation of their emergent condition. - New Patient This patient is new to me today: Yes Date on this admission: 02/04/19 - Critical Care Critical Care patient: No
[2019-02-04] MEDS: SODIUM CHLORIDE 1,000 ML IV SCH (23:02)
[2019-02-05] MEDS ORDERED: LIDOCAINE 5% TOPICAL PATCH ONE (00:25)
[2019-02-05] MEDS: GABAPENTIN 250 MG/5 ML ORAL SOLUTION, 470 ML BOTTLE GT SCH ×4 (00:31→21:33)
[2019-02-05] MEDS: LIDOCAINE PATCH REMOVAL MC SCH ×2 (00:31→21:33)
[2019-02-05] MEDS: ROSUVASTATIN CA 10 MG TABLET (FP) PO SCH ×2 (00:40→21:33)
[2019-02-05] MEDS ORDERED: PIPERACILLIN/TAZOB 2.25 GM 2.25 GM in DEXTROSE 5%-WATER - 50 ML IVPB SCH (02:00)
[2019-02-05] MEDS ORDERED: PIPERACILLIN/TAZOB 3.375 GM 3.375 GM/50 ML BAG IVPB ONE ×2 (02:36→10:10)
[2019-02-05] MEDS: PIPERACILLIN/TAZOB 3.375 GM 3.375 GM in DEXTROSE 5%-WATER - 50 ML IVPB SCH ×3 (03:04→19:31)
[2019-02-05 06:35] LABS: HEMATOCRIT 30.2 % (35.4-49); HEMOGLOBIN 10.3 GM/dL (11.7-16.9); MCH 30.7 pg (25.7-33.7); MEAN CELL VOLUME 90.1 fl (80-96); MEAN PLT VOLUME 8.7 fl (7.5-11.1); PLATELET COUNT 169 K/MM3 (134-434); RBC 3.35 M/mm3 (4.00-5.60); WHITE BLOOD COUNT 8.7 K/mm3 (4.0-10.0)
[2019-02-05 06:57] LABS: BLOOD UREA NITROGEN 24.9 mg/dL (7-18); CALCIUM 8.7 mg/dL (8.5-10.1); CREATININE 0.9 mg/dL (0.55-1.3)
[2019-02-05] MEDS: LEVOTHYROXINE NA 125 MCG TABLET (FP) PO SCH (08:00)
--- NOTE | 2019-02-05 09:09 | PDOC ---
Attending Attestation - Resident Resident Name: Nicole Hamlin - ED Attending Attestation I have performed the following: I have examined & evaluated the patient, The case was reviewed & discussed with the resident, I agree w/resident's findings & plan, Exceptions are as noted - HPI HPI: 02/05/19 09:03 73 yo male with h/0 pharyngeal cancer s/p treatment, resection and radiation many years ago copd, dm htn peg. currently with radiation causes of inabiity to tolerate po. currently gets all feeds via a peg tube. here today c/;o hemoptysis. pt states started sweveral days ago did have subjective fevers. coughing bright red blood, and some clots. states had similar one monteh ago when admitted to hospital for pneumonia has had a bronchoscopy in the last year to r/;o mass as another cause of hemoptysis in last year ( june) and has had cta one monthe ago . no n/v no cp does feel mild sob states feels he cant get his pleghm up when he coughs. pt states was discharge from hospital on abx one month ago, and was again started on abx on 01/[address] Murillo. 02/05/19 09:12 - Physicial Exam PE: 02/05/19 09:09 awake alert lungs with crackles bilat bases, worse on the right. normal effort. no wheezing. abd soft nt nd ext wwp no edema. no calf tendernes. nuero alert oreinted x 3 - Medical Decision Making 02/05/19 09:10 73 yo male ho pharngeal ca, resection and radiation with radiation changes. autonomic intability here with hemoptysis cough and sob. differentia included pe, recurrent CA mass, pneumonia chf. plan cta labs cxr pt cxr wtih infiltrate. was given abx for hcap vanco zosyn. cta performe. negative for cta. given duoneb in ED. pt to be admitted .
[2019-02-05] MEDS: LIDOCAINE 5% TOPICAL PATCH TP SCH (10:32)
[2019-02-05] MEDS: CHOLECALCIFEROL (VIT D3) 1,000 UNIT (25 MCG) TABLET GT SCH (10:33)
[2019-02-05] MEDS: CYANOCOBALAMIN 1,000 MCG TABLET (FP) GT SCH (10:33)
[2019-02-05] MEDS: amLODIPine BESYLATE 2.5 MG TABLET (FP) PEG SCH (10:33)
[2019-02-05] MEDS ORDERED: ACETAMINOPHEN 325 MG TABLET (FP) ONE (11:43)
--- NOTE | 2019-02-05 12:06 | PN ---
Progress Note, Physician Chief Complaint: patient admitted for hemoptysis and fever - Current Medication List Current Medications: Active Medications Albuterol Sulfate (Ventolin 0.083% Nebulizer Soln -) 1 amp NEB Q6H PRN PRN Reason: Dyspnea Amlodipine Besylate (Norvasc -) 2.5 mg PEG DAILY [facility] Last Admin: 02/05/19 10:33 Dose: Not Given Cholecalciferol (Vitamin D3 -) 2,000 unit GT DAILY [facility] Last Admin: 02/05/19 10:33 Dose: 2,000 unit Cyanocobalamin (Vitamin B12 -) 1,000 mcg GT DAILY [facility] Last Admin: 02/05/19 10:33 Dose: 1,000 mcg Gabapentin (Neurontin Oral Liquid -) 100 mg GT TID [facility] Last Admin: 02/05/19 08:00 Dose: 100 mg Piperacillin Sod/Tazobactam (Sod 3.375 gm/ Dextrose) 50 mls @ 100 mls/hr IVPB Q8H-IV LITTLE; Protocol Piperacillin Sod/Tazobactam (Sod 3.375 gm/ Dextrose) 50 mls @ 100 mls/hr IVPB Q8H-IV LITTLE Stop: 02/05/19 18:29 Last Admin: 02/05/19 10:32 Dose: 100 mls/hr Sodium Chloride (Normal Saline -) 1,000 mls @ 60 mls/hr IV ASDIR [facility] Last Admin: 02/04/19 23:02 Dose: 60 mls/hr Vancomycin HCl 1,000 mg/ (Dextrose) 250 mls @ 166.667 mls/hr IVPB ONCE ONE; Protocol Stop: 02/05/19 13:31 Levothyroxine Sodium (Synthroid -) 125 mcg PO DAILY@0700 [facility] Last Admin: 02/05/19 08:00 Dose: 125 mcg Lidocaine (Lidoderm Patch -) 1 patch TP DAILY [facility] Last Admin: 02/05/19 10:32 Dose: Not Given Miscellaneous (Lidoderm Patch Removal) 1 each MC DAILY@2200 [facility] Last Admin: 02/05/19 00:31 Dose: Not Given Rosuvastatin Calcium (Crestor -) 10 mg PO HS [facility] Last Admin: 02/05/19 00:40 Dose: 10 mg - Objective Vital Signs: Vital Signs Temperature 100.1 F H 02/05/19 04:54 Pulse Rate 89 02/05/19 06:50 Respiratory Rate 18 02/05/19 06:50 Blood Pressure 123/72 02/05/19 06:50 O2 Sat by Pulse Oximetry (%) 95 02/05/19 06:50 Constitutional: Yes: Calm Cardiovascular: Yes: Regular Rate and Rhythm, S1, S2 Respiratory: Yes: CTA Bilaterally, Diminished (in lower lobes) Gastrointestinal: Yes: Normal Bowel Sounds, Soft, Other (g tube) Edema: No Neurological: Yes: Alert, Oriented Labs: CBC, BMP 02/05/19 05:45 02/05/19 05:45 INR, PTT INR 1.02 (0.83-1.09) 02/04/19 17:19 Problem List - Problems (1) Hemoptysis Assessment/Plan: possibly aspiration pna vancomycin and zosyn for now ID eval pulm eval lactic acidosis resolved delonte fay- NPO cta no PE Chest CT extensive consolidation in both lungs more marked in right lung Code(s): R04.2 - HEMOPTYSIS (2) Hypothyroid Assessment/Plan: synthroid Code(s): E03.9 - HYPOTHYROIDISM, UNSPECIFIED Qualifiers: Hypothyroidism type: unspecified Qualified Code(s): E03.9 - Hypothyroidism , unspecified
--- NOTE | 2019-02-05 12:22 | CON.PULM ---
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 PATIENT STATES HE HAD A FEVER OF 102 AND FELT WEAK. HE DECIDED TO COME TO ED FOR EVALUATION. OF NOTE IS THAT HIS HEMOPTYSIS WHICH IS RECURRENT IS USUALLY CAUSED BY ASPIRATION PNEUMONIA. 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 Cardio/Vascular: Yes: CAD, CHF, HTN, Hyperlipdemia, Other (Autonomic dysfunction with orthostatic hypotension) Pulmonary: Yes: Cancer (pharyngeal CA (last radiation in 2011)), Pneumonia, Other (aspiration) Renal/: Yes: BPH Heme/Onc: Yes: Anemia Infectious Disease: No: AIDS Psych: No: Addictions ENT: Yes: Other (head and neck CA) Endocrine: Yes: Hypothyroidism - Alcohol/Substance Use Hx Alcohol Use: No History of Substance Use: reports: None - Smoking History Smoking history: Never smoked Have you smoked in the past 12 months: No - Social History Usual Living Arrangement: With Spouse ADL: Independent 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, 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[employer] , [employer] History of Recent Travel: No Home Medications - Allergies Allergies/Adverse Reactions: Allergies Allergy/AdvReac Type Severity Reaction Status Date / Time No Known Drug Allergies Allergy Verified 02/05/19 12:20 tamsulosin HCl [From Flomax] AdvReac Intermediate dizziness Verified 02/04/19 16 :27 - Home Medications Home Medications: Ambulatory Orders Aspirin [ASA -] 81 mg PO DAILY 10/20/15 Cholecalciferol (Vitamin D3) [Vitamin D3] 2,000 unit PO DAILY 10/20/15 Cyanocobalamin (Vitamin B-12) [Vitamin B-12] 1,000 mcg PO DAILY 10/20/15 Levothyroxine Sodium [Unithroid] 135 mcg PO DAILY 10/20/15 Rosuvastatin Calcium [Crestor] 10 mg PO HS 10/20/15 Gabapentin Liquid [Neurontin Oral Liquid -] 100 mg GT TID #120 ml 02/19/18 Albuterol 0.083% Nebulizer Malissa [Ventolin 0.083% Nebulizer Soln -] 1 amp NEB RQID PRN amp 12/22/18 Amlodipine Besylate [Norvasc -] 2.5 mg PEG DAILY tablet 12/22/18 Lidocaine 5% Patch [Lidoderm -] 1 patch TP DAILY #30 patch 12/22/18 Sulfamethoxazole/Trimethoprim [Bactrim Oral Suspension -] 20 ml PO BID #560 ml 12/22/18 Family Medical History Family History: Unremarkable Review of Systems - Review of Systems Constitutional: reports: Fever, Lethargy, Loss of Appetite Eyes: denies: Blurred Vision HENT: reports: No Symptoms, Difficult Swallowing Neck: denies: Decreased ROM Cardiovascular: denies: Chest Pain, Palpitations Respiratory: reports: Cough, Exercise Intolerance, Hemoptysis Gastrointestinal: denies: Abdominal Pain Genitourinary: denies: Burning Physical Exam Vital Sings: Vital Signs Temperature 100.1 F H 02/05/19 04:54 Pulse Rate 89 02/05/19 06:50 Respiratory Rate 18 02/05/19 06:50 Blood Pressure 123/72 02/05/19 06:50 O2 Sat by Pulse Oximetry (%) 95 02/05/19 06:50 Constitutional: Yes: Calm Eyes: Yes: EOM Intact HENT: Yes: Normocephalic Neck: Yes: Trachea Midline Cardiovascular: Yes: Regular Rate and Rhythm, S1, S2 Respiratory: Yes: Rales (BILATERALLY AT BASES), Rhonchi Gastrointestinal: Yes: Normal Bowel Sounds Renal/: Yes: WNL Extremities: Yes: WNL Labs: CBC, BMP 02/05/19 05:45 02/05/19 05:45 Imaging - Results Chest X-ray: Report Reviewed, Image Reviewed Cat Scan: Report Reviewed, Image Reviewed Problem List - Problems (1) Hemoptysis Code(s): R04.2 - HEMOPTYSIS (2) PNA (pneumonia) Code(s): J18.9 - PNEUMONIA, UNSPECIFIED ORGANISM Qualifiers: Pneumonia type: due to unspecified organism Laterality: right Lung location: lower lobe of lung Qualified Code(s): J18.9 - Pneumonia, unspecified organism (3) Aspiration into respiratory tract Code(s): T17.908A - UNSP FB IN RESP TRACT, PART UNSP CAUSING OTH INJURY, INIT Qualifiers: Encounter type: initial encounter Qualified Code(s): T17.908A - Unspecified foreign body in respiratory tract, part unspecified causing other injury, initial encounter (4) Aspiration pneumonia Code(s): J69.0 - PNEUMONITIS DUE TO INHALATION OF FOOD AND VOMIT Qualifiers: Aspiration pneumonia type: unspecified Laterality: bilateral Lung location: lower lobe of lung Qualified Code(s): J69.0 - Pneumonitis due to inhalation of food and vomit (5) Autonomic postural hypotension Code(s): I95.1 - ORTHOSTATIC HYPOTENSION (6) Dysautonomia orthostatic hypotension syndrome Code(s): G90.3 - MULTI-SYSTEM DEGENERATION OF THE AUTONOMIC NERVOUS SYSTEM (7) HLD (hyperlipidemia) Code(s): E78.5 - HYPERLIPIDEMIA, UNSPECIFIED Qualifiers: Hyperlipidemia type: pure hypercholesterolemia Qualified Code(s): E78.00 - Pure hypercholesterolemia, unspecified; E78.0 - Pure hypercholesterolemia Assessment/Plan PANCULTURE O2 PRN CHEST PT/BRONCHODILATORS ANTIBIOTICS ID EVALUATION QUANTIFY HEMOPTYSIS AVOID ANTICOAGULATION WILL FOLLOW Haley MATTSON MD
[2019-02-05] MEDS ORDERED: VANCOMYCIN 1 GRAM (PRE-DOCKED) 1,000 MG/250 ML BAG IVPB ONE ×2 (13:00→18:20)
--- NOTE | 2019-02-05 14:18 | EKG ---
Test Reason : Blood Pressure : / mmHG Vent. Rate : 092 BPM Atrial Rate : 092 BPM P-R Int : 204 ms QRS Dur : 088 ms QT Int : 360 ms P-R-T Axes : 112 004 061 degrees QTc Int : 445 ms SINUS RHYTHM WITH PREMATURE SUPRAVENTRICULAR COMPLEXES WHEN COMPARED WITH ECG OF 14-DEC-2018 00:13, PREMATURE SUPRAVENTRICULAR COMPLEXES ARE NOW PRESENT Confirmed by ANDREW LAI MD ([id number]) on 02/05/2019 2:18:11 PM Referred By: Confirmed By:ANDREW LAI MD
[2019-02-05] MEDS ORDERED: VANCOMYCIN 1 GRAM (PRE-DOCKED) 1,000 MG/250 ML BAG IVPB SCH (17:30)
--- NOTE | 2019-02-05 18:03 | CON.ID ---
Consult Referred by:: dr cohen - History of Present Illness Chief Complaint: hemoptysis History of Present Illness: 73 yo man with pharyngeal cancer s/p rt and chemo 2011, Gt doesn't eat by mouth with intermittent hemoptysis over the last 7 days 2 days ago he developed fever to 103, couldn't get out of bed to use the bathroom due to generalized weakness, eventually went to the bathroom and sat on the floor didnt get up for 10 hours due to weakness, then managed to stand and get back to bed noted the hemoptysis got worse so he came to ED never called his doctor in the interim history of recurrent aspiration pneumonia- usually get hemooptysis with it last admission had mrsa- was discharged on po bactrim for 2 weeks which he states he completed after that he took another course of antibiotics prescribed by his PMD recently no antibiotics no diarrhea no vomiting nochest pain or abdominal pain - History Source History Provided By: Patient Limitations to Obtaining History: No Limitations - 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 No: Alzheimer's Cardio/Vascular: Yes: CAD, CHF, HTN, Hyperlipdemia, Other (Autonomic dysfunction with orthostatic hypotension) Pulmonary: Yes: Cancer (pharyngeal CA (last radiation in 2011)), Pneumonia, Other (aspiration) Renal/: Yes: BPH Infectious Disease: No: AIDS Psych: No: Addictions ENT: Yes: Other (head and neck CA) Endocrine: Yes: Hypothyroidism - Alcohol/Substance Use Hx Alcohol Use: No History of Substance Use: reports: None - Smoking History Smoking history: Never smoked Have you smoked in the past 12 months: No - Social History Usual Living Arrangement: With Spouse ADL: Independent 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, 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[employer] , [employer] History of Recent Travel: No Home Medications - Allergies Allergies/Adverse Reactions: Allergies Allergy/AdvReac Type Severity Reaction Status Date / Time No Known Drug Allergies Allergy Verified 02/05/19 12:20 tamsulosin HCl [From Flomax] AdvReac Intermediate dizziness Verified 02/04/19 16 :27 - Home Medications Home Medications: Ambulatory Orders Aspirin [ASA -] 81 mg PO DAILY 10/20/15 Cholecalciferol (Vitamin D3) [Vitamin D3] 2,000 unit PO DAILY 10/20/15 Cyanocobalamin (Vitamin B-12) [Vitamin B-12] 1,000 mcg PO DAILY 10/20/15 Levothyroxine Sodium [Unithroid] 135 mcg PO DAILY 10/20/15 Rosuvastatin Calcium [Crestor] 10 mg PO HS 10/20/15 Gabapentin Liquid [Neurontin Oral Liquid -] 100 mg GT TID #120 ml 02/19/18 Albuterol 0.083% Nebulizer Malissa [Ventolin 0.083% Nebulizer Soln -] 1 amp NEB RQID PRN amp 12/22/18 Amlodipine Besylate [Norvasc -] 2.5 mg PEG DAILY tablet 12/22/18 Lidocaine 5% Patch [Lidoderm -] 1 patch TP DAILY #30 patch 12/22/18 Sulfamethoxazole/Trimethoprim [Bactrim Oral Suspension -] 20 ml PO BID #560 ml 12/22/18 Family Medical History Family History: Unremarkable Review of Systems - Review of Systems Constitutional: reports: Chills, Fever Eyes: reports: No Symptoms HENT: reports: No Symptoms Neck: reports: No Symptoms Cardiovascular: reports: No Symptoms. denies: Chest Pain, Edema, Palpitations, Shortness of Breath Respiratory: reports: Cough, Hemoptysis Gastrointestinal: reports: No Symptoms Genitourinary: reports: No Symptoms Musculoskeletal: reports: No Symptoms Integumentary: reports: No Symptoms Physical Exam Vital Signs: Vital Signs Temperature 97.8 F 02/05/19 08:00 Pulse Rate 91 H 02/05/19 08:00 Respiratory Rate 18 02/05/19 08:00 Blood Pressure 106/64 02/05/19 08:00 O2 Sat by Pulse Oximetry (%) 93 L 02/05/19 08:00 Constitutional: Yes: Well Nourished, No Distress, Calm Eyes: Yes: Conjunctiva Clear HENT: Yes: Atraumatic, Normocephalic. No: Thrush, Tonsillar Exudate Neck: Yes: Supple, Trachea Midline Cardiovascular: Yes: Regular Rate and Rhythm Respiratory: Yes: Regular, Other (crackels both bases left greater then right) Gastrointestinal: Yes: Normal Bowel Sounds, Soft ...Rectal Exam: Yes: Deferred Musculoskeletal: Yes: WNL Extremities: Yes: WNL Edema: No Integumentary: Yes: WNL Psychiatric: Yes: Alert Labs: CBC, BMP 02/05/19 05:45 02/05/19 05:45 Imaging - Results Chest X-ray: Report Reviewed, Image Reviewed Cat Scan: Report Reviewed, Image Reviewed Problem List - Problems (1) Hemoptysis Code(s): R04.2 - HEMOPTYSIS (2) PNA (pneumonia) Code(s): J18.9 - PNEUMONIA, UNSPECIFIED ORGANISM Qualifiers: Pneumonia type: due to unspecified organism Laterality: right Lung location: lower lobe of lung Qualified Code(s): J18.9 - Pneumonia, unspecified organism (3) History of throat cancer Code(s): Z85.819 - PRSNL HX OF MALIG NEOPLM OF UNSP SITE LIP,ORAL CAV,& PHARYNX (4) MRSA (methicillin resistant staph aureus) culture positive Code(s): Z22.322 - CARRIER OR SUSPECTED CARRIER OF METHICILLIN RESIS STAPH Assessment/Plan contact isolation vanco/zosyn f/u cultures
[2019-02-05] MEDS: PIPERACILLIN/TAZOB 4.5 GM 4.5 GM in DEXTROSE 5%-WATER 100 ML IVPB SCH (19:26)
[2019-02-06] MEDS: ACETAMINOPHEN 325 MG TABLET (FP) PO PRN (00:13)
[2019-02-06] MEDS ORDERED: PIPERACILLIN/TAZOBACTAM 4.5 GM VIAL IVPB ONE ×3 (01:02→17:22)
[2019-02-06] MEDS ORDERED: DEXTROSE 5%-WATER 100 ML IVPB ONE ×3 (01:02→17:22)
[2019-02-06] MEDS: PIPERACILLIN/TAZOB 4.5 GM 4.5 GM in DEXTROSE 5%-WATER 100 ML IVPB SCH ×3 (01:36→17:23)
[2019-02-06] MEDS ORDERED: PIPERACILLIN/TAZOB 4.5 GM 4.5 GM in DEXTROSE 5%-WATER 100 ML IVPB SCH (02:00)
[2019-02-06] MEDS: GABAPENTIN 250 MG/5 ML ORAL SOLUTION, 470 ML BOTTLE GT SCH ×3 (06:16→22:32)
[2019-02-06] MEDS: SODIUM CHLORIDE 1,000 ML IV SCH (06:16)
[2019-02-06] MEDS: LEVOTHYROXINE NA 125 MCG TABLET (FP) PO SCH (06:16)
[2019-02-06 08:52] LABS: BASO % 0.1 % (0-2.0); EOS % 2.6 % (0-4.5); HEMATOCRIT 32.5 % (35.4-49); HEMOGLOBIN 10.6 GM/dL (11.7-16.9); LYMPH % 9.4 % (8-40); MCHC 32.6 g/dl (32.0-35.9); MEAN CELL VOLUME 91.9 fl (80-96); MEAN PLT VOLUME 8.8 fl (7.5-11.1); MONO % 6.3 % (3.8-10.2); NEUT % 81.6 % (42.8-82.8); PLATELET COUNT 168 K/MM3 (134-434); RBC 3.53 M/mm3 (4.00-5.60); RDW 13.8 % (11.9-15.9); WHITE BLOOD COUNT 5.6 K/mm3 (4.0-10.0)
[2019-02-06 09:17] LABS: BLOOD UREA NITROGEN 15.1 mg/dL (7-18); CALCIUM 9.2 mg/dL (8.5-10.1); CREATININE 0.9 mg/dL (0.55-1.3); POTASSIUM 3.5 mmol/L (3.5-5.1); TOT PROT 6.8 g/dl (6.4-8.2)
[2019-02-06] MEDS: CYANOCOBALAMIN 1,000 MCG TABLET (FP) GT SCH (10:26)
[2019-02-06] MEDS: CHOLECALCIFEROL (VIT D3) 1,000 UNIT (25 MCG) TABLET GT SCH (10:26)
[2019-02-06] MEDS: LIDOCAINE 5% TOPICAL PATCH TP SCH (10:30)
[2019-02-06] MEDS: amLODIPine BESYLATE 2.5 MG TABLET (FP) PEG SCH (10:36)
--- NOTE | 2019-02-06 11:14 | PN ---
Progress Note, Physician - Current Medication List Current Medications: Active Medications Acetaminophen (Tylenol -) 650 mg PO Q6H PRN PRN Reason: PAIN LEVEL 1-5 Last Admin: 02/06/19 00:13 Dose: 650 mg Albuterol Sulfate (Ventolin 0.083% Nebulizer Soln -) 1 amp NEB Q6H PRN PRN Reason: Dyspnea Amlodipine Besylate (Norvasc -) 2.5 mg PEG DAILY COUNT INCLUDES THE [facility] Last Admin: 02/06/19 10:36 Dose: Not Given Cholecalciferol (Vitamin D3 -) 2,000 unit GT DAILY COUNT INCLUDES THE [facility] Last Admin: 02/06/19 10:26 Dose: 2,000 unit Cyanocobalamin (Vitamin B12 -) 1,000 mcg GT DAILY COUNT INCLUDES THE [facility] Last Admin: 02/06/19 10:26 Dose: 1,000 mcg Gabapentin (Neurontin Oral Liquid -) 100 mg GT TID COUNT INCLUDES THE [facility] Last Admin: 02/06/19 06:16 Dose: 100 mg Sodium Chloride (Normal Saline -) 1,000 mls @ 60 mls/hr IV ASDIR [facility] Last Admin: 02/06/19 06:16 Dose: 60 mls/hr Vancomycin HCl (Vancomycin (Pre-Docked)) 1,000 mg in 250 mls @ 166.667 mls/hr IVPB Q24H [facility]; Protocol Last Admin: 02/05/19 18:15 Dose: 166.667 mls/hr Piperacillin Sod/Tazobactam (Sod 4.5 gm/ Dextrose) 100 mls @ 200 mls/hr IVPB Q8H-IV [facility]; Protocol Last Admin: 02/06/19 10:26 Dose: 200 mls/hr Levothyroxine Sodium (Synthroid -) 125 mcg PO DAILY@0700 COUNT INCLUDES THE [facility] Last Admin: 02/06/19 06:16 Dose: 125 mcg Lidocaine (Lidoderm Patch -) 1 patch TP DAILY COUNT INCLUDES THE [facility] Last Admin: 02/05/19 10:32 Dose: Not Given Miscellaneous (Lidoderm Patch Removal) 1 each MC DAILY@2200 COUNT INCLUDES THE [facility] Last Admin: 02/05/19 21:33 Dose: Not Given Rosuvastatin Calcium (Crestor -) 10 mg PO HS COUNT INCLUDES THE [facility] Last Admin: 02/05/19 21:33 Dose: 10 mg - Objective Vital Signs: Vital Signs Temperature 97.8 F 02/06/19 10:00 Pulse Rate 76 02/06/19 10:00 Respiratory Rate 18 02/06/19 10:00 Blood Pressure 121/72 02/06/19 10:00 O2 Sat by Pulse Oximetry (%) 95 02/05/19 19:30 Cardiovascular: Yes: S1, S2 Respiratory: Yes: On Nasal O2, Rhonchi Gastrointestinal: Yes: Normal Bowel Sounds, Soft Labs: CBC, BMP 02/06/19 07:25 02/06/19 07:25 INR, PTT INR 1.02 (0.83-1.09) 02/04/19 17:19 Problem List - Problems (1) Hemoptysis Assessment/Plan: possibly aspiration pna vancomycin and zosyn for now ID eval pulm eval lactic acidosis resolved delonte fay- NPO cta no PE Chest CT extensive consolidation in both lungs more marked in right lung Code(s): R04.2 - HEMOPTYSIS (2) PNA (pneumonia) Assessment/Plan: as above Code(s): J18.9 - PNEUMONIA, UNSPECIFIED ORGANISM Qualifiers: Pneumonia type: due to unspecified organism Laterality: right Lung location: lower lobe of lung Qualified Code(s): J18.9 - Pneumonia, unspecified organism (3) Aspiration pneumonia Code(s): J69.0 - PNEUMONITIS DUE TO INHALATION OF FOOD AND VOMIT Qualifiers: Aspiration pneumonia type: unspecified Laterality: bilateral Lung location: lower lobe of lung Qualified Code(s): J69.0 - Pneumonitis due to inhalation of food and vomit (4) COPD (chronic obstructive pulmonary disease) Assessment/Plan: Nebs Code(s): J44.9 - CHRONIC OBSTRUCTIVE PULMONARY DISEASE, UNSPECIFIED Qualifiers: COPD type: unspecified COPD Qualified Code(s): J44.9 - Chronic obstructive pulmonary disease, unspecified (5) HTN (hypertension) Code(s): I10 - ESSENTIAL (PRIMARY) HYPERTENSION Qualifiers: Hypertension type: essential hypertension Qualified Code(s): I10 - Essential (primary) hypertension
--- NOTE | 2019-02-06 15:45 | PN ---
Progress Note (short form) - Note Progress Note: hemoptysis resolved unable to expectorate sputum for culture specimen resting comfortably Vital Signs Period Temp Pulse Resp BP Sys/Leblanc Pulse Ox Last 24 Hr 0.9 F-98.6 F 71-100 18-20 121-164/72-96 93-95 cor-rrr lungs decreased bs at bases with crackles abd soft, +gt ext no edema CBC, BMP 02/06/19 07:25 02/06/19 07:25 Microbiology 02/04/19 17:47 Urine - Urine Clean Catch Urine Culture - Final NO GROWTH OBTAINED 02/04/19 17:19 Blood - Peripheral Venous Blood Culture - Preliminary NO GROWTH OBTAINED AFTER 24 HOURS, INCUBATION TO CONTINUE FOR 4 DAYS. 02/04/19 17:19 Blood - Peripheral Venous Blood Culture - Preliminary NO GROWTH OBTAINED AFTER 24 HOURS, INCUBATION TO CONTINUE FOR 4 DAYS. a/p hemoptysis likely aspiration pneumonia history of head and neck cancer prior MRSA continue vanco/zosyn check vanco trough Problem List - Problems (1) Hemoptysis Code(s): R04.2 - HEMOPTYSIS (2) PNA (pneumonia) Code(s): J18.9 - PNEUMONIA, UNSPECIFIED ORGANISM Qualifiers: Pneumonia type: due to unspecified organism Laterality: right Lung location: lower lobe of lung Qualified Code(s): J18.9 - Pneumonia, unspecified organism (3) History of throat cancer Code(s): Z85.819 - PRSNL HX OF MALIG NEOPLM OF UNSP SITE LIP,ORAL CAV,& PHARYNX (4) MRSA (methicillin resistant staph aureus) culture positive Code(s): Z22.322 - CARRIER OR SUSPECTED CARRIER OF METHICILLIN RESIS STAPH
[2019-02-06 15:53] VITALS: BMI 25.7
[2019-02-06] MEDS: VANCOMYCIN 1 GRAM (PRE-DOCKED) 1,000 MG/250 ML BAG IVPB SCH (16:06)
[2019-02-06] MEDS: ROSUVASTATIN CA 10 MG TABLET (FP) PO SCH (22:32)
[2019-02-06] MEDS: LIDOCAINE PATCH REMOVAL MC SCH (22:42)
[2019-02-07] MEDS ORDERED: PIPERACILLIN/TAZOBACTAM 4.5 GM VIAL IVPB ONE ×3 (01:46→16:54)
[2019-02-07] MEDS ORDERED: DEXTROSE 5%-WATER 100 ML IVPB ONE ×3 (01:47→16:54)
[2019-02-07] MEDS: PIPERACILLIN/TAZOB 4.5 GM 4.5 GM in DEXTROSE 5%-WATER 100 ML IVPB SCH ×3 (01:48→17:04)
[2019-02-07] MEDS: ACETAMINOPHEN 325 MG TABLET (FP) PO PRN ×2 (01:51→11:04)
[2019-02-07] MEDS ORDERED: PT OWN MED DRAWER 7, Y5N ONE ×3 (03:06→20:29)
[2019-02-07] MEDS: VANCOMYCIN 1 GRAM (PRE-DOCKED) 1,000 MG/250 ML BAG IVPB SCH ×2 (04:43→17:57)
[2019-02-07] MEDS: GABAPENTIN 250 MG/5 ML ORAL SOLUTION, 470 ML BOTTLE GT SCH ×3 (06:33→21:34)
[2019-02-07] MEDS: LEVOTHYROXINE NA 125 MCG TABLET (FP) PO SCH (06:36)
[2019-02-07] MEDS: CHOLECALCIFEROL (VIT D3) 1,000 UNIT (25 MCG) TABLET GT SCH (10:57)
[2019-02-07] MEDS: CYANOCOBALAMIN 1,000 MCG TABLET (FP) GT SCH (10:57)
[2019-02-07] MEDS: LIDOCAINE 5% TOPICAL PATCH TP SCH (10:58)
[2019-02-07] MEDS: amLODIPine BESYLATE 2.5 MG TABLET (FP) PEG SCH (10:59)
--- NOTE | 2019-02-07 12:31 | PN ---
Progress Note, Physician History of Present Illness: BACK PAIN - Current Medication List Current Medications: Active Medications Acetaminophen (Tylenol -) 650 mg PO Q6H PRN PRN Reason: PAIN LEVEL 1-5 Last Admin: 02/07/19 11:04 Dose: 650 mg Albuterol Sulfate (Ventolin 0.083% Nebulizer Soln -) 1 amp NEB Q6H PRN PRN Reason: Dyspnea Amlodipine Besylate (Norvasc -) 2.5 mg PEG DAILY [facility] Last Admin: 02/07/19 10:59 Dose: Not Given Cholecalciferol (Vitamin D3 -) 2,000 unit GT DAILY [facility] Last Admin: 02/07/19 10:57 Dose: 2,000 unit Cyanocobalamin (Vitamin B12 -) 1,000 mcg GT DAILY [facility] Last Admin: 02/07/19 10:57 Dose: 1,000 mcg Gabapentin (Neurontin Oral Liquid -) 100 mg GT TID [facility] Last Admin: 02/07/19 06:33 Dose: 100 mg Piperacillin Sod/Tazobactam (Sod 4.5 gm/ Dextrose) 100 mls @ 200 mls/hr IVPB Q8H-IV [facility]; Protocol Last Admin: 02/07/19 10:56 Dose: 200 mls/hr Vancomycin HCl (Vancomycin (Pre-Docked)) 1,000 mg in 250 mls @ 166.667 mls/hr IVPB Q12H [facility]; Protocol Last Admin: 02/07/19 04:43 Dose: 166.667 mls/hr Levothyroxine Sodium (Synthroid -) 125 mcg PO DAILY@0700 [facility] Last Admin: 02/07/19 06:36 Dose: 125 mcg Lidocaine (Lidoderm Patch -) 1 patch TP DAILY [facility] Last Admin: 02/07/19 10:58 Dose: 1 patch Miscellaneous (Lidoderm Patch Removal) 1 each MC DAILY@2200 [facility] Last Admin: 02/06/19 22:42 Dose: Not Given Rosuvastatin Calcium (Crestor -) 10 mg PO HS [facility] Last Admin: 02/06/19 22:32 Dose: 10 mg - Objective Vital Signs: Vital Signs Temperature 97.4 F L 02/07/19 06:00 Pulse Rate 103 H 02/06/19 22:00 Respiratory Rate 17 02/07/19 06:30 Blood Pressure 154/89 02/07/19 06:30 O2 Sat by Pulse Oximetry (%) 96 02/06/19 21:00 Cardiovascular: Yes: S1, S2 Respiratory: Yes: On Nasal O2, Rhonchi Gastrointestinal: Yes: Normal Bowel Sounds, Soft. No: Tenderness Musculoskeletal: Yes: Muscle Pain Labs: CBC, BMP 02/06/19 07:25 02/06/19 07:25 INR, PTT INR 1.02 (0.83-1.09) 02/04/19 17:19 Problem List - Problems (1) Hemoptysis Assessment/Plan: possibly aspiration pna vancomycin and zosyn for now ID eval pulm eval lactic acidosis resolved delonte fay- NPO cta no PE Chest CT extensive consolidation in both lungs more marked in right lung Code(s): R04.2 - HEMOPTYSIS (2) PNA (pneumonia) Assessment/Plan: as above Code(s): J18.9 - PNEUMONIA, UNSPECIFIED ORGANISM Qualifiers: Pneumonia type: due to unspecified organism Laterality: right Lung location: lower lobe of lung Qualified Code(s): J18.9 - Pneumonia, unspecified organism (3) Aspiration pneumonia Code(s): J69.0 - PNEUMONITIS DUE TO INHALATION OF FOOD AND VOMIT Qualifiers: Aspiration pneumonia type: unspecified Laterality: bilateral Lung location: lower lobe of lung Qualified Code(s): J69.0 - Pneumonitis due to inhalation of food and vomit (4) COPD (chronic obstructive pulmonary disease) Assessment/Plan: Nebs Code(s): J44.9 - CHRONIC OBSTRUCTIVE PULMONARY DISEASE, UNSPECIFIED Qualifiers: COPD type: unspecified COPD Qualified Code(s): J44.9 - Chronic obstructive pulmonary disease, unspecified (5) HTN (hypertension) Code(s): I10 - ESSENTIAL (PRIMARY) HYPERTENSION Qualifiers: Hypertension type: essential hypertension Qualified Code(s): I10 - Essential (primary) hypertension (6) Back pain Assessment/Plan: ADD TRAMADOL Code(s): M54.9 - DORSALGIA, UNSPECIFIED
--- NOTE | 2019-02-07 13:15 | PN ---
Progress Note (short form) - Note Progress Note: PULMONARY AWAKE/ALERT/AFEBRILE HEMOPTYSIS IS SPORADIC VSS ANICTERIC B/L BASILAR RHONCHI S1S2 BS+ NO EDEMA LABS/MEDS/NOTES/IMAGES/ID CONSULT REVIEWED PNEUMONIA/HEMOPTYSIS AUTONOMIC DYSFUNCTION CONTINUE CURRENT LINE OF TREATMENT ANTIBIOTICS/O2/CHEST PT/BRONCHODILATORS Haley MATTSON MD Problem List - Problems (1) Hemoptysis Code(s): R04.2 - HEMOPTYSIS (2) PNA (pneumonia) Code(s): J18.9 - PNEUMONIA, UNSPECIFIED ORGANISM Qualifiers: Pneumonia type: due to unspecified organism Laterality: right Lung location: lower lobe of lung Qualified Code(s): J18.9 - Pneumonia, unspecified organism (3) Aspiration into respiratory tract Code(s): T17.908A - UNSP FB IN RESP TRACT, PART UNSP CAUSING OTH INJURY, INIT Qualifiers: Encounter type: initial encounter Qualified Code(s): T17.908A - Unspecified foreign body in respiratory tract, part unspecified causing other injury, initial encounter (4) Aspiration pneumonia Code(s): J69.0 - PNEUMONITIS DUE TO INHALATION OF FOOD AND VOMIT Qualifiers: Aspiration pneumonia type: unspecified Laterality: bilateral Lung location: lower lobe of lung Qualified Code(s): J69.0 - Pneumonitis due to inhalation of food and vomit (5) Autonomic postural hypotension Code(s): I95.1 - ORTHOSTATIC HYPOTENSION (6) Dysautonomia orthostatic hypotension syndrome Code(s): G90.3 - MULTI-SYSTEM DEGENERATION OF THE AUTONOMIC NERVOUS SYSTEM (7) HLD (hyperlipidemia) Code(s): E78.5 - HYPERLIPIDEMIA, UNSPECIFIED Qualifiers: Hyperlipidemia type: pure hypercholesterolemia Qualified Code(s): E78.00 - Pure hypercholesterolemia, unspecified; E78.0 - Pure hypercholesterolemia
[2019-02-07] MEDS: traMADol HCL 50 MG TABLET PO PRN (15:58)
[2019-02-07] MEDS: ROSUVASTATIN CA 10 MG TABLET (FP) PO SCH (21:36)
[2019-02-07] MEDS: LIDOCAINE PATCH REMOVAL MC SCH (21:38)
[2019-02-08] MEDS ORDERED: DEXTROSE 5%-WATER 100 ML IVPB ONE ×3 (01:04→17:39)
[2019-02-08] MEDS ORDERED: PIPERACILLIN/TAZOBACTAM 4.5 GM VIAL IVPB ONE ×3 (01:04→17:39)
[2019-02-08] MEDS: PIPERACILLIN/TAZOB 4.5 GM 4.5 GM in DEXTROSE 5%-WATER 100 ML IVPB SCH ×3 (01:49→20:30)
[2019-02-08] MEDS: VANCOMYCIN 1 GRAM (PRE-DOCKED) 1,000 MG/250 ML BAG IVPB SCH ×2 (03:33→16:45)
[2019-02-08] MEDS: GABAPENTIN 250 MG/5 ML ORAL SOLUTION, 470 ML BOTTLE GT SCH ×3 (06:47→21:42)
[2019-02-08] MEDS: LEVOTHYROXINE NA 125 MCG TABLET (FP) PO SCH (06:48)
[2019-02-08 08:24] LABS: BASO % 0.3 % (0-2.0); EOS % 4.8 % (0-4.5); HEMATOCRIT 33.8 % (35.4-49); HEMOGLOBIN 11.1 GM/dL (11.7-16.9); LYMPH % 14.2 % (8-40); MCH 29.8 pg (25.7-33.7); MCHC 32.8 g/dl (32.0-35.9); MEAN PLT VOLUME 8.7 fl (7.5-11.1); MONO % 11.5 % (3.8-10.2); NEUT % 69.2 % (42.8-82.8); PLATELET COUNT 229 K/MM3 (134-434); RBC 3.72 M/mm3 (4.00-5.60); WHITE BLOOD COUNT 5.4 K/mm3 (4.0-10.0)
[2019-02-08 08:40] LABS: ALBUMIN 2.9 g/dl (3.4-5.0); BILIRUBIN,TOTAL 0.5 mg/dL (0.2-1); BLOOD UREA NITROGEN 14.4 mg/dL (7-18); CALCIUM 9.5 mg/dL (8.5-10.1); CREATININE 0.9 mg/dL (0.55-1.3); POTASSIUM 4.1 mmol/L (3.5-5.1); TOT PROT 6.9 g/dl (6.4-8.2)
[2019-02-08] MEDS ORDERED: PT OWN MED DRAWER 7, Y5N ONE (09:36)
[2019-02-08] MEDS: LIDOCAINE 5% TOPICAL PATCH TP SCH (10:51)
[2019-02-08] MEDS: CHOLECALCIFEROL (VIT D3) 1,000 UNIT (25 MCG) TABLET GT SCH (10:53)
[2019-02-08] MEDS: CYANOCOBALAMIN 1,000 MCG TABLET (FP) GT SCH (10:53)
[2019-02-08] MEDS: amLODIPine BESYLATE 2.5 MG TABLET (FP) PEG SCH (10:58)
--- NOTE | 2019-02-08 11:02 | PN ---
Progress Note, Physician Chief Complaint: Hemoptysis Pneumonia History of Present Illness: Previous notes and events reviewed awake and alert NAD sts having productive cough denies hemoptysis - Current Medication List Current Medications: Active Medications Acetaminophen (Tylenol -) 650 mg PO Q6H PRN PRN Reason: PAIN LEVEL 1-5 Last Admin: 02/07/19 11:04 Dose: 650 mg Albuterol Sulfate (Ventolin 0.083% Nebulizer Soln -) 1 amp NEB Q6H PRN PRN Reason: Dyspnea Amlodipine Besylate (Norvasc -) 2.5 mg PEG DAILY [facility] Last Admin: 02/08/19 10:58 Dose: Not Given Cholecalciferol (Vitamin D3 -) 2,000 unit GT DAILY [facility] Last Admin: 02/08/19 10:53 Dose: 2,000 unit Cyanocobalamin (Vitamin B12 -) 1,000 mcg GT DAILY [facility] Last Admin: 02/08/19 10:53 Dose: 1,000 mcg Gabapentin (Neurontin Oral Liquid -) 100 mg GT TID [facility] Last Admin: 02/08/19 06:47 Dose: 100 mg Piperacillin Sod/Tazobactam (Sod 4.5 gm/ Dextrose) 100 mls @ 200 mls/hr IVPB Q8H-IV [facility]; Protocol Last Admin: 02/08/19 10:50 Dose: 200 mls/hr Vancomycin HCl (Vancomycin (Pre-Docked)) 1,000 mg in 250 mls @ 166.667 mls/hr IVPB Q12H [facility]; Protocol Last Admin: 02/08/19 03:33 Dose: 166.667 mls/hr Levothyroxine Sodium (Synthroid -) 125 mcg PO DAILY@0700 [facility] Last Admin: 02/08/19 06:48 Dose: 125 mcg Lidocaine (Lidoderm Patch -) 1 patch TP DAILY [facility] Last Admin: 02/08/19 10:51 Dose: 1 patch Miscellaneous (Lidoderm Patch Removal) 1 each MC DAILY@2200 [facility] Last Admin: 02/07/19 21:38 Dose: 1 each Rosuvastatin Calcium (Crestor -) 10 mg PO HS [facility] Last Admin: 02/07/19 21:36 Dose: 10 mg Tramadol HCl (Ultram -) 50 mg PO Q6H PRN PRN Reason: PAIN LEVEL 6-10 Last Admin: 02/07/19 15:58 Dose: 50 mg - Objective Vital Signs: Vital Signs Temperature 97.9 F 02/08/19 06:00 Pulse Rate 79 02/08/19 06:00 Respiratory Rate 18 02/08/19 06:00 Blood Pressure 135/90 02/08/19 06:00 O2 Sat by Pulse Oximetry (%) 98 02/07/19 21:00 Constitutional: Yes: No Distress, Calm Eyes: Yes: Conjunctiva Clear HENT: Yes: Atraumatic Cardiovascular: Yes: Regular Rate and Rhythm Respiratory: Yes: Regular, Rhonchi Gastrointestinal: Yes: Normal Bowel Sounds, Soft, Other (G tube) Musculoskeletal: Yes: WNL Extremities: Yes: WNL Edema: No Neurological: Yes: Alert, Oriented Psychiatric: Yes: Alert, Oriented Labs: CBC, BMP 02/08/19 06:35 02/08/19 06:35 INR, PTT INR 1.02 (0.83-1.09) 02/04/19 17:19 Microbiology 02/04/19 17:19 Blood - Peripheral Venous Blood Culture - Preliminary NO GROWTH OBTAINED AFTER 72 HOURS, INCUBATION TO CONTINUE FOR 2 DAYS. 02/04/19 17:19 Blood - Peripheral Venous Blood Culture - Preliminary NO GROWTH OBTAINED AFTER 72 HOURS, INCUBATION TO CONTINUE FOR 2 DAYS. 02/04/19 17:47 Urine - Urine Clean Catch Urine Culture - Final NO GROWTH OBTAINED Problem List - Problems (1) Back pain Assessment/Plan: -pain control Code(s): M54.9 - DORSALGIA, UNSPECIFIED (2) Hemoptysis Assessment/Plan: -Pulm on board -ID on board -Chest CTA shows no evidence of PE, extensive consolidation throughout both lungs, most marked within RLL concerning for acute pneumonia, mediastinal and hilar adenopathy -no leukocytosis -afebrile -Zosyn, Vancomycin -BC neg Code(s): R04.2 - HEMOPTYSIS (3) MRSA (methicillin resistant staph aureus) culture positive Assessment/Plan: -contact precaution Code(s): Z22.322 - CARRIER OR SUSPECTED CARRIER OF METHICILLIN RESIS STAPH (4) PNA (pneumonia) Assessment/Plan: -Pulm on board -ID on board -Chest CTA shows no evidence of PE, extensive consolidation throughout both lungs, most marked within RLL concerning for acute pneumonia, mediastinal and hilar adenopathy -no leukocytosis -afebrile -Zosyn, Vancomycin -BC neg -bronchodilators -tylenol prn for temp >100F -O2 via NC -kkeep SpO2 >90% Code(s): J18.9 - PNEUMONIA, UNSPECIFIED ORGANISM Qualifiers: Pneumonia type: due to unspecified organism Laterality: right Lung location: lower lobe of lung Qualified Code(s): J18.9 - Pneumonia, unspecified organism (5) Aspiration pneumonia Assessment/Plan: Pulm on board -ID on board -Chest CTA shows no evidence of PE, extensive consolidation throughout both lungs, most marked within RLL concerning for acute pneumonia, mediastinal and hilar adenopathy -no leukocytosis -afebrile -Zosyn, Vancomycin -BC neg -bronchodilators -tylenol for temp >100F Code(s): J69.0 - PNEUMONITIS DUE TO INHALATION OF FOOD AND VOMIT Qualifiers: Aspiration pneumonia type: unspecified Laterality: bilateral Lung location: lower lobe of lung Qualified Code(s): J69.0 - Pneumonitis due to inhalation of food and vomit (6) CAD (coronary artery disease) Assessment/Plan: -aspirin on hold due to hemoptysis Code(s): I25.10 - ATHSCL HEART DISEASE OF [place] CORONARY ARTERY W/O ANG PCTRS Qualifiers: Coronary Disease-Associated Artery/Lesion type: [place] artery [place] vs. transplanted heart: [place] heart Associated angina: without angina Qualified Code(s): I25.10 - Atherosclerotic heart disease of [place] coronary artery without angina pectoris (7) COPD (chronic obstructive pulmonary disease) Assessment/Plan: -Pulm on board -keep SpO2 >90% -O2 via NC -bronchodilators Code(s): J44.9 - CHRONIC OBSTRUCTIVE PULMONARY DISEASE, UNSPECIFIED Qualifiers: COPD type: unspecified COPD Qualified Code(s): J44.9 - Chronic obstructive pulmonary disease, unspecified (8) HLD (hyperlipidemia) Assessment/Plan: -Crestor Code(s): E78.5 - HYPERLIPIDEMIA, UNSPECIFIED Qualifiers: Hyperlipidemia type: pure hypercholesterolemia Qualified Code(s): E78.00 - Pure hypercholesterolemia, unspecified; E78.0 - Pure hypercholesterolemia (9) HTN (hypertension) Assessment/Plan: -monitor BP Code(s): I10 - ESSENTIAL (PRIMARY) HYPERTENSION Qualifiers: Hypertension type: essential hypertension Qualified Code(s): I10 - Essential (primary) hypertension (10) History of throat cancer Code(s): Z85.819 - PRSNL HX OF MALIG NEOPLM OF [facility] SITE LIP,ORAL CAV,& PHARYNX (11) Hypothyroid Assessment/Plan: -Levothyroxine Code(s): E03.9 - HYPOTHYROIDISM, UNSPECIFIED Qualifiers: Hypothyroidism type: unspecified Qualified Code(s): E03.9 - Hypothyroidism , unspecified Assessment/Plan see problem list
--- NOTE | 2019-02-08 11:07 | PN ---
Progress Note (short form) - Note Progress Note: PULMONARY States he is feeling better. Less cough. No fevers recorded. Vital Signs Period Temp Pulse Resp BP Sys/Leblanc Pulse Ox Last 24 Hr 97.5 F-98.0 F 72-83 18-20 102-160/60-112 98 Gen: NAD at rest Heart: RRR Lung: basilar rales Abd: soft, nontender Ext: no edema CBC, BMP 02/08/19 06:35 02/08/19 06:35 Active Medications Acetaminophen (Tylenol -) 650 mg PO Q6H PRN PRN Reason: PAIN LEVEL 1-5 Last Admin: 02/07/19 11:04 Dose: 650 mg Albuterol Sulfate (Ventolin 0.083% Nebulizer Soln -) 1 amp NEB Q6H PRN PRN Reason: Dyspnea Amlodipine Besylate (Norvasc -) 2.5 mg PEG DAILY [facility] Last Admin: 02/08/19 10:58 Dose: Not Given Cholecalciferol (Vitamin D3 -) 2,000 unit GT DAILY [facility] Last Admin: 02/08/19 10:53 Dose: 2,000 unit Cyanocobalamin (Vitamin B12 -) 1,000 mcg GT DAILY [facility] Last Admin: 02/08/19 10:53 Dose: 1,000 mcg Gabapentin (Neurontin Oral Liquid -) 100 mg GT TID [facility] Last Admin: 02/08/19 06:47 Dose: 100 mg Piperacillin Sod/Tazobactam (Sod 4.5 gm/ Dextrose) 100 mls @ 200 mls/hr IVPB Q8H-IV [facility]; Protocol Last Admin: 02/08/19 10:50 Dose: 200 mls/hr Vancomycin HCl (Vancomycin (Pre-Docked)) 1,000 mg in 250 mls @ 166.667 mls/hr IVPB Q12H [facility]; Protocol Last Admin: 02/08/19 03:33 Dose: 166.667 mls/hr Levothyroxine Sodium (Synthroid -) 125 mcg PO DAILY@0700 [facility] Last Admin: 02/08/19 06:48 Dose: 125 mcg Lidocaine (Lidoderm Patch -) 1 patch TP DAILY [facility] Last Admin: 02/08/19 10:51 Dose: 1 patch Miscellaneous (Lidoderm Patch Removal) 1 each MC DAILY@2200 [facility] Last Admin: 02/07/19 21:38 Dose: 1 each Rosuvastatin Calcium (Crestor -) 10 mg PO HS [facility] Last Admin: 02/07/19 21:36 Dose: 10 mg Tramadol HCl (Ultram -) 50 mg PO Q6H PRN PRN Reason: PAIN LEVEL 6-10 Last Admin: 02/07/19 15:58 Dose: 50 mg A/P Hemoptysis Pneumonia likely recurrent Aspiration Sepsis Lactic Acidosis improved h/o Pharyngeal Ca s/p chemo/RT HTN Hyperlipidemia Hypothyroidism - monitor/quantify hemoptysis - continue antibiotics per ID - f/u cultures - aspiration precautions - inhaled bronchodilators - DVT prophylaxis
--- NOTE | 2019-02-08 12:09 | CONSULT ---
Admitting History and Physical - Primary Care Physician PCP: Fern Murillo - Admission History of Present Illness: Per EMR- Pulmonary-4 DAYS [employer] INS[employer]OR WITH GREEN/YELLOW MUCOUS WITH BLOOD STREAKING WHICH PROGRESSED TO BENJI HEMOPTYSIS. PATIENT STATES HE HAD A FEVER OF 102 AND FELT WEAK. HE DECIDED TO COME TO ED FOR EVALUATION. OF NOTE IS THAT HIS HEMOPTYSIS WHICH IS RECURRENT IS USUALLY CAUSED BY ASPIRATION PNEUMONIA. Seen last by me in Dec 2018- Speech Evaluation, Impression/Plan Impression: Pt well known to me with h/o Dysphagia, NPO, GT feedings, with repeat admission for PNA. CT- infiltrates.Voice is strong. Doubt aspirating saliva. When seen by Pulmonary in September 2018-. BILATERAL PNEUMONIA LIKELY ASPIRATION improving. HEMOPTYSIS SECONDARY TO PNEUMONIA IMPROVING. COPD. H/O ORAL PHARYNGEAL CA S/P RT. H/O ASPIRATION S/P GT. AUTONOMIC DYSFUNCTION. DM. BPH-Pending Pulmonary consult. Related to sleeping flat at home? Consider hospital bed, with consistent HOB elevation and continue to chromosomal disorders counselor pt on eliminating "capfuls of water". Pt with poor compliance for me in the past. - Dysphagia Impressions/Plan Swallowing Skills: Impaired Dysphagia Impressions: Suspect Aspiration (retrograde from TF, anterograde fron "capfuls of water") *Silent aspiration: cannot be R/O at bedside Dysphagia Treatment Plan: Other (HOB elevated at all times) Recommendations: Other (Mouth care tid.) Pt counseled on NPO rec and HOB elevation to avoid retrograde aspiration of feedings. Since last admission,pt reports that he has been strictly NPO, and purchased a wedge pillow to maintain elevated HOB to reduce aspiration risks. 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, 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[employer] , 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 History of Recent Travel: No History - Admission Reason For Visit: HEMOPTYSIS,PNEUMONIA - Diagnostics X-ray: Report Reviewed - General Mental Status: Alert and Oriented, Awake and Alert, Able to Follow Commands Attention: Intact Ability to Follow Directions: Excellent Head/Neck Control: WFL - Hearing Hearing: Normal Speech Evaluation - Communication Primary Language: ARMENIAN Communication: Yes: Within Normal Limits Oral Expression Ability: Yes: No Impairment - Speech Production Able to Make Needs Known: Yes: WNL Intelligibility: Yes: WNL - Speech Characteristics Voice Loudness: Normal Voice Pitch: Yes: Normal Voice Phonatory-based Quality: Yes: Normal Speech Pattern: Normal Nasal Resonance: Normal Articulation: Yes: Precise Rate of Speech: Intact - Language/Auditory Comprehension Follows: Yes: 2 Stage Simple Commands Observation: Comprehends Conversational Speech: Yes - Language/Verbal Expression Able to Communicate Wants and Needs: Yes: WNL - 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 Independent in GT usage. Good vocal quality. Tolerating saliva without overt signs of aspiration. - Disposition Discharge to: Home with Assist - Dysphagia Impressions/Plan Swallowing Skills: Impaired Recommendations: Other (Consider Deep breathing exercises/incxentive spirometry/ Flutter equipment to reduce risk of recurrent PNA?) - Recommendations Diet Consistency: NPO
--- NOTE | 2019-02-08 13:18 | PN ---
Progress Note (short form) - Note Progress Note: hemoptysis resolved minimal cough Vital Signs Period Temp Pulse Resp BP Sys/Leblanc Pulse Ox Last 24 Hr 97.5 F-98.0 F 72-89 18-20 102-175/60-112 97-98 cor-rrr lungs bibasilar rhonchi abd soft, nt ext no edema CBC, BMP 02/08/19 06:35 02/08/19 06:35 Microbiology 02/04/19 17:19 Blood - Peripheral Venous Blood Culture - Preliminary NO GROWTH OBTAINED AFTER 72 HOURS, INCUBATION TO CONTINUE FOR 2 DAYS. 02/04/19 17:19 Blood - Peripheral Venous Blood Culture - Preliminary NO GROWTH OBTAINED AFTER 72 HOURS, INCUBATION TO CONTINUE FOR 2 DAYS. 02/04/19 17:47 Urine - Urine Clean Catch Urine Culture - Final NO GROWTH OBTAINED a/p hemoptysis likely aspiration pneumonia history of head and neck cancer prior MRSA continue vanco/zosyn check vanco trough ordered for today Problem List - Problems (1) Hemoptysis Code(s): R04.2 - HEMOPTYSIS (2) PNA (pneumonia) Code(s): J18.9 - PNEUMONIA, UNSPECIFIED ORGANISM Qualifiers: Pneumonia type: due to unspecified organism Laterality: right Lung location: lower lobe of lung Qualified Code(s): J18.9 - Pneumonia, unspecified organism (3) History of throat cancer Code(s): Z85.819 - PRSNL HX OF MALIG NEOPLM OF [place] SITE LIP,ORAL CAV,& PHARYNX (4) MRSA (methicillin resistant staph aureus) culture positive Code(s): Z22.322 - CARRIER OR SUSPECTED CARRIER OF METHICILLIN RESIS STAPH
[2019-02-08] MEDS: traMADol HCL 50 MG TABLET PO PRN (19:17)
[2019-02-08] MEDS: LIDOCAINE PATCH REMOVAL MC SCH (21:42)
[2019-02-08] MEDS: ROSUVASTATIN CA 10 MG TABLET (FP) PO SCH (21:42)
[2019-02-09] MEDS ORDERED: PIPERACILLIN/TAZOBACTAM 4.5 GM VIAL IVPB ONE ×3 (02:17→17:35)
[2019-02-09] MEDS ORDERED: DEXTROSE 5%-WATER 100 ML IVPB ONE ×3 (02:17→17:35)
[2019-02-09] MEDS: PIPERACILLIN/TAZOB 4.5 GM 4.5 GM in DEXTROSE 5%-WATER 100 ML IVPB SCH ×3 (02:22→18:22)
[2019-02-09] MEDS: VANCOMYCIN 1 GRAM (PRE-DOCKED) 1,000 MG/250 ML BAG IVPB SCH ×2 (03:52→15:10)
[2019-02-09] MEDS: GABAPENTIN 250 MG/5 ML ORAL SOLUTION, 470 ML BOTTLE GT SCH ×3 (05:54→21:48)
[2019-02-09] MEDS: LEVOTHYROXINE NA 125 MCG TABLET (FP) PO SCH (06:17)
[2019-02-09 09:06] LABS: HEMATOCRIT 28.8 % (35.4-49); HEMOGLOBIN 9.7 GM/dL (11.7-16.9); MCH 30.4 pg (25.7-33.7); MCHC 33.8 g/dl (32.0-35.9); MEAN CELL VOLUME 89.8 fl (80-96); MEAN PLT VOLUME 8.4 fl (7.5-11.1); PLATELET COUNT 218 K/MM3 (134-434); RBC 3.21 M/mm3 (4.00-5.60); WHITE BLOOD COUNT 4.1 K/mm3 (4.0-10.0)
[2019-02-09 09:43] LABS: ALBUMIN 2.5 g/dl (3.4-5.0); BILIRUBIN,TOTAL 0.4 mg/dL (0.2-1); BLOOD UREA NITROGEN 15.1 mg/dL (7-18); CALCIUM 8.6 mg/dL (8.5-10.1); CREATININE 0.8 mg/dL (0.55-1.3); POTASSIUM 3.7 mmol/L (3.5-5.1)
--- NOTE | 2019-02-09 10:08 | PN ---
Progress Note, Physician - Current Medication List Current Medications: Active Medications Acetaminophen (Tylenol -) 650 mg PO Q6H PRN PRN Reason: PAIN LEVEL 1-5 Last Admin: 02/07/19 11:04 Dose: 650 mg Albuterol Sulfate (Ventolin 0.083% Nebulizer Soln -) 1 amp NEB Q6H PRN PRN Reason: Dyspnea Amlodipine Besylate (Norvasc -) 2.5 mg PEG DAILY [facility] Last Admin: 02/08/19 10:58 Dose: Not Given Cholecalciferol (Vitamin D3 -) 2,000 unit GT DAILY [facility] Last Admin: 02/08/19 10:53 Dose: 2,000 unit Cyanocobalamin (Vitamin B12 -) 1,000 mcg GT DAILY [facility] Last Admin: 02/08/19 10:53 Dose: 1,000 mcg Gabapentin (Neurontin Oral Liquid -) 100 mg GT TID [facility] Last Admin: 02/09/19 05:54 Dose: 100 mg Piperacillin Sod/Tazobactam (Sod 4.5 gm/ Dextrose) 100 mls @ 200 mls/hr IVPB Q8H-IV [facility]; Protocol Last Admin: 02/09/19 02:22 Dose: 200 mls/hr Vancomycin HCl (Vancomycin (Pre-Docked)) 1,000 mg in 250 mls @ 166.667 mls/hr IVPB Q12H [facility]; Protocol Last Admin: 02/09/19 03:52 Dose: 166.667 mls/hr Levothyroxine Sodium (Synthroid -) 125 mcg PO DAILY@0700 [facility] Last Admin: 02/09/19 06:17 Dose: 125 mcg Lidocaine (Lidoderm Patch -) 1 patch TP DAILY [facility] Last Admin: 02/08/19 10:51 Dose: 1 patch Miscellaneous (Lidoderm Patch Removal) 1 each MC DAILY@2200 [facility] Last Admin: 02/08/19 21:42 Dose: 1 each Rosuvastatin Calcium (Crestor -) 10 mg PO HS [facility] Last Admin: 02/08/19 21:42 Dose: 10 mg Tramadol HCl (Ultram -) 50 mg PO Q6H PRN PRN Reason: PAIN LEVEL 6-10 Last Admin: 02/08/19 19:17 Dose: 50 mg - Objective Vital Signs: Vital Signs Temperature 98.1 F 02/09/19 06:00 Pulse Rate 76 02/09/19 06:00 Respiratory Rate 18 02/09/19 06:00 Blood Pressure 181/98 H 02/09/19 06:00 O2 Sat by Pulse Oximetry (%) 98 02/08/19 21:00 Cardiovascular: Yes: S1, S2 Respiratory: Yes: Rhonchi Gastrointestinal: Yes: Normal Bowel Sounds, Soft Labs: CBC, BMP 02/09/19 07:43 02/09/19 07:43 INR, PTT INR 1.02 (0.83-1.09) 02/04/19 17:19 Problem List - Problems (1) Hemoptysis Assessment/Plan: possibly aspiration pna vancomycin and zosyn for now ID eval pulm eval lactic acidosis resolved [place] fay- NPO cta no PE Chest CT extensive consolidation in both lungs more marked in right lung Code(s): R04.2 - HEMOPTYSIS (2) PNA (pneumonia) Assessment/Plan: as above Code(s): J18.9 - PNEUMONIA, UNSPECIFIED ORGANISM Qualifiers: Pneumonia type: due to unspecified organism Laterality: right Lung location: lower lobe of lung Qualified Code(s): J18.9 - Pneumonia, unspecified organism (3) Aspiration pneumonia Code(s): J69.0 - PNEUMONITIS DUE TO INHALATION OF FOOD AND VOMIT Qualifiers: Aspiration pneumonia type: unspecified Laterality: bilateral Lung location: lower lobe of lung Qualified Code(s): J69.0 - Pneumonitis due to inhalation of food and vomit (4) COPD (chronic obstructive pulmonary disease) Assessment/Plan: Nebs Code(s): J44.9 - CHRONIC OBSTRUCTIVE PULMONARY DISEASE, UNSPECIFIED Qualifiers: COPD type: unspecified COPD Qualified Code(s): J44.9 - Chronic obstructive pulmonary disease, unspecified (5) HTN (hypertension) Code(s): I10 - ESSENTIAL (PRIMARY) HYPERTENSION Qualifiers: Hypertension type: essential hypertension Qualified Code(s): I10 - Essential (primary) hypertension (6) Back pain Assessment/Plan: ADD TRAMADOL Code(s): M54.9 - DORSALGIA, UNSPECIFIED
[2019-02-09] MEDS: LIDOCAINE 5% TOPICAL PATCH TP SCH (10:11)
[2019-02-09] MEDS: amLODIPine BESYLATE 2.5 MG TABLET (FP) PEG SCH (10:13)
[2019-02-09] MEDS: traMADol HCL 50 MG TABLET PO PRN (10:13)
[2019-02-09] MEDS: CHOLECALCIFEROL (VIT D3) 1,000 UNIT (25 MCG) TABLET GT SCH (10:13)
[2019-02-09] MEDS: CYANOCOBALAMIN 1,000 MCG TABLET (FP) GT SCH (10:13)
--- NOTE | 2019-02-09 12:03 | PN ---
Progress Note (short form) - Note Progress Note: PULMONARY No further hemoptysis. No fevers recorded. Vital Signs Period Temp Pulse Resp BP Sys/Leblanc Pulse Ox Last 24 Hr 98.1 F-98.3 F 76-84 18-18 100-181/62-106 98 Gen: NAD at rest Heart: RRR Lung: basilar rales Abd: soft, nontender Ext: no edema CBC, BMP 02/09/19 07:43 02/09/19 07:43 Active Medications Acetaminophen (Tylenol -) 650 mg PO Q6H PRN PRN Reason: PAIN LEVEL 1-5 Last Admin: 02/07/19 11:04 Dose: 650 mg Albuterol Sulfate (Ventolin 0.083% Nebulizer Soln -) 1 amp NEB Q6H PRN PRN Reason: Dyspnea Amlodipine Besylate (Norvasc -) 2.5 mg PEG DAILY [facility] Last Admin: 02/09/19 10:13 Dose: Not Given Cholecalciferol (Vitamin D3 -) 2,000 unit GT DAILY [facility] Last Admin: 02/09/19 10:13 Dose: 2,000 unit Cyanocobalamin (Vitamin B12 -) 1,000 mcg GT DAILY [facility] Last Admin: 02/09/19 10:13 Dose: 1,000 mcg Gabapentin (Neurontin Oral Liquid -) 100 mg GT TID [facility] Last Admin: 02/09/19 05:54 Dose: 100 mg Piperacillin Sod/Tazobactam (Sod 4.5 gm/ Dextrose) 100 mls @ 200 mls/hr IVPB Q8H-IV [facility]; Protocol Last Admin: 02/09/19 10:15 Dose: 200 mls/hr Vancomycin HCl (Vancomycin (Pre-Docked)) 1,000 mg in 250 mls @ 166.667 mls/hr IVPB Q12H [facility]; Protocol Last Admin: 02/09/19 03:52 Dose: 166.667 mls/hr Levothyroxine Sodium (Synthroid -) 125 mcg PO DAILY@0700 [facility] Last Admin: 02/09/19 06:17 Dose: 125 mcg Lidocaine (Lidoderm Patch -) 1 patch TP DAILY [facility] Last Admin: 02/09/19 10:11 Dose: 1 patch Miscellaneous (Lidoderm Patch Removal) 1 each MC DAILY@2200 [facility] Last Admin: 02/08/19 21:42 Dose: 1 each Rosuvastatin Calcium (Crestor -) 10 mg PO HS [facility] Last Admin: 02/08/19 21:42 Dose: 10 mg Tramadol HCl (Ultram -) 50 mg PO Q6H PRN PRN Reason: PAIN LEVEL 6-10 Last Admin: 02/09/19 10:13 Dose: 50 mg A/P Hemoptysis Pneumonia likely recurrent Aspiration Sepsis Lactic Acidosis improved h/o Pharyngeal Ca s/p chemo/RT HTN Hyperlipidemia Hypothyroidism - monitor/quantify hemoptysis - continue antibiotics per ID - aspiration precautions - inhaled bronchodilators - DVT prophylaxis
--- NOTE | 2019-02-09 16:29 | PN ---
Progress Note (short form) - Note Progress Note: hemoptysis resolved minimal cough Vital Signs Period Temp Pulse Resp BP Sys/Leblanc Pulse Ox Last 24 Hr 98.1 F-98.2 F 76-84 18-18 144-181/76-106 98 cor-rrr lungs bibasilar crackles abd soft,nt +GT ext no edema 02/09/19 07:43 02/09/19 07:43 Microbiology 02/04/19 17:19 Blood - Peripheral Venous Blood Culture - Preliminary NO GROWTH OBTAINED AFTER 96 HOURS, INCUBATION TO CONTINUE FOR 1 DAYS. 02/04/19 17:19 Blood - Peripheral Venous Blood Culture - Preliminary NO GROWTH OBTAINED AFTER 96 HOURS, INCUBATION TO CONTINUE FOR 1 DAYS. 02/04/19 17:47 Urine - Urine Clean Catch Urine Culture - Final NO GROWTH OBTAINED Laboratory Tests 02/08/19 14:45 Vancomycin Pre-Dose 14.3 L a/p hemoptysis likely aspiration pneumonia history of head and neck cancer prior MRSA continue vanco/zosyn day #5 add chest PT Problem List - Problems (1) Hemoptysis Code(s): R04.2 - HEMOPTYSIS (2) PNA (pneumonia) Code(s): J18.9 - PNEUMONIA, UNSPECIFIED ORGANISM Qualifiers: Pneumonia type: due to unspecified organism Laterality: right Lung location: lower lobe of lung Qualified Code(s): J18.9 - Pneumonia, unspecified organism (3) History of throat cancer Code(s): Z85.819 - PRSNL HX OF MALIG NEOPLM OF [place] SITE LIP,ORAL CAV,& PHARYNX (4) MRSA (methicillin resistant staph aureus) culture positive Code(s): Z22.322 - CARRIER OR SUSPECTED CARRIER OF METHICILLIN RESIS STAPH
[2019-02-09] MEDS ORDERED: ALBUTEROL SO4 0.083% IH SOL 2.5 MG/3 ML VIAL.NEB. NEB PRN ×2 (20:26→20:31)
[2019-02-09] MEDS: ROSUVASTATIN CA 10 MG TABLET (FP) PO SCH (21:47)
[2019-02-09] MEDS: LIDOCAINE PATCH REMOVAL MC SCH (21:50)
[2019-02-10] MEDS: PIPERACILLIN/TAZOB 4.5 GM 4.5 GM in DEXTROSE 5%-WATER 100 ML IVPB SCH ×3 (03:58→17:54)
[2019-02-10] MEDS: VANCOMYCIN 1 GRAM (PRE-DOCKED) 1,000 MG/250 ML BAG IVPB SCH ×2 (04:53→15:29)
[2019-02-10] MEDS: LEVOTHYROXINE NA 125 MCG TABLET (FP) PO SCH (06:57)
[2019-02-10] MEDS: GABAPENTIN 250 MG/5 ML ORAL SOLUTION, 470 ML BOTTLE GT SCH ×3 (06:58→22:46)
[2019-02-10] MEDS ORDERED: PIPERACILLIN/TAZOBACTAM 4.5 GM VIAL IVPB ONE ×2 (09:31→17:03)
[2019-02-10] MEDS ORDERED: DEXTROSE 5%-WATER 100 ML IVPB ONE ×2 (09:32→17:04)
[2019-02-10] MEDS: CHOLECALCIFEROL (VIT D3) 1,000 UNIT (25 MCG) TABLET GT SCH (10:03)
[2019-02-10] MEDS: amLODIPine BESYLATE 2.5 MG TABLET (FP) PEG SCH ×2 (10:04→10:14)
[2019-02-10] MEDS: CYANOCOBALAMIN 1,000 MCG TABLET (FP) GT SCH (10:04)
[2019-02-10] MEDS: LIDOCAINE 5% TOPICAL PATCH TP SCH (10:05)
--- NOTE | 2019-02-10 11:12 | PN ---
Progress Note, Physician Chief Complaint: Hemoptysis Pneumonia History of Present Illness: Previous notes and events reviewed awake and alert NAD sts having productive cough denies hemoptysis no leukocytosis afebrile - Current Medication List Current Medications: Active Medications Acetaminophen (Tylenol -) 650 mg PO Q6H PRN PRN Reason: PAIN LEVEL 1-5 Last Admin: 02/07/19 11:04 Dose: 650 mg Albuterol Sulfate (Ventolin 0.083% Nebulizer Soln -) 1 amp NEB Q6H PRN PRN Reason: SHORT OF BREATH/WHEEZING Amlodipine Besylate (Norvasc -) 2.5 mg PEG DAILY [facility] Last Admin: 02/10/19 10:14 Dose: Not Given Cholecalciferol (Vitamin D3 -) 2,000 unit GT DAILY [facility] Last Admin: 02/10/19 10:03 Dose: 2,000 unit Cyanocobalamin (Vitamin B12 -) 1,000 mcg GT DAILY [facility] Last Admin: 02/10/19 10:04 Dose: 1,000 mcg Gabapentin (Neurontin Oral Liquid -) 100 mg GT TID [facility] Last Admin: 02/10/19 06:58 Dose: 100 mg Piperacillin Sod/Tazobactam (Sod 4.5 gm/ Dextrose) 100 mls @ 200 mls/hr IVPB Q8H-IV [facility]; Protocol Last Admin: 02/10/19 10:03 Dose: 200 mls/hr Vancomycin HCl (Vancomycin (Pre-Docked)) 1,000 mg in 250 mls @ 166.667 mls/hr IVPB Q12H [facility]; Protocol Last Admin: 02/10/19 04:53 Dose: 166.667 mls/hr Levothyroxine Sodium (Synthroid -) 125 mcg PO DAILY@0700 [facility] Last Admin: 02/10/19 06:57 Dose: 125 mcg Lidocaine (Lidoderm Patch -) 1 patch TP DAILY [facility] Last Admin: 02/10/19 10:05 Dose: 1 patch Miscellaneous (Lidoderm Patch Removal) 1 each MC DAILY@2200 [facility] Last Admin: 02/09/19 21:50 Dose: 1 each Rosuvastatin Calcium (Crestor -) 10 mg PO HS [facility] Last Admin: 02/09/19 21:47 Dose: 10 mg Tramadol HCl (Ultram -) 50 mg PO Q6H PRN PRN Reason: PAIN LEVEL 6-10 Last Admin: 12/03/19 10:13 Dose: 50 mg - Objective Vital Signs: Vital Signs Temperature 98.1 F 02/10/19 06:42 Pulse Rate 74 02/10/19 06:42 Respiratory Rate 18 02/10/19 09:00 Blood Pressure 113/63 02/10/19 06:42 O2 Sat by Pulse Oximetry (%) 96 02/10/19 09:00 Constitutional: Yes: No Distress, Calm Eyes: Yes: Conjunctiva Clear HENT: Yes: Atraumatic Cardiovascular: Yes: Regular Rate and Rhythm Respiratory: Yes: Regular, Diminished Gastrointestinal: Yes: Normal Bowel Sounds, Soft, Other (G tube) Musculoskeletal: Yes: WNL Extremities: Yes: WNL Edema: No Neurological: Yes: Alert, Oriented Psychiatric: Yes: Alert, Oriented Labs: CBC, BMP 02/09/19 07:43 02/09/19 07:43 INR, PTT INR 1.02 (0.83-1.09) 02/04/19 17:19 Microbiology 02/04/19 17:19 Blood - Peripheral Venous Blood Culture - Final NO GROWTH AFTER 5 DAYS INCUBATION 02/04/19 17:19 Blood - Peripheral Venous Blood Culture - Final NO GROWTH AFTER 5 DAYS INCUBATION 02/04/19 17:47 Urine - Urine Clean Catch Urine Culture - Final NO GROWTH OBTAINED Problem List - Problems (1) Back pain Assessment/Plan: -pain control Code(s): M54.9 - DORSALGIA, UNSPECIFIED (2) Hemoptysis Assessment/Plan: -Pulm on board -ID on board -Chest CTA shows no evidence of PE, extensive consolidation throughout both lungs, most marked within RLL concerning for acute pneumonia, mediastinal and hilar adenopathy -no leukocytosis -afebrile -Zosyn, Vancomycin -BC neg -Chest PT Code(s): R04.2 - HEMOPTYSIS (3) MRSA (methicillin resistant staph aureus) culture positive Assessment/Plan: -contact precaution Code(s): Z22.322 - CARRIER OR SUSPECTED CARRIER OF METHICILLIN RESIS STAPH (4) PNA (pneumonia) Assessment/Plan: -Pulm on board -ID on board -Chest CTA shows no evidence of PE, extensive consolidation throughout both lungs, most marked within RLL concerning for acute pneumonia, mediastinal and hilar adenopathy -no leukocytosis -afebrile -Zosyn, Vancomycin -BC neg -bronchodilators -tylenol prn for temp >100F -O2 via NC -kkeep SpO2 >90% -Chest PT Code(s): J18.9 - PNEUMONIA, UNSPECIFIED ORGANISM Qualifiers: Pneumonia type: due to unspecified organism Laterality: right Lung location: lower lobe of lung Qualified Code(s): J18.9 - Pneumonia, unspecified organism (5) Aspiration pneumonia Assessment/Plan: Pulm on board -ID on board -Chest CTA shows no evidence of PE, extensive consolidation throughout both lungs, most marked within RLL concerning for acute pneumonia, mediastinal and hilar adenopathy -no leukocytosis -afebrile -Zosyn, Vancomycin -BC neg -bronchodilators -tylenol for temp >100F -Chest PT Code(s): J69.0 - PNEUMONITIS DUE TO INHALATION OF FOOD AND VOMIT Qualifiers: Aspiration pneumonia type: unspecified Laterality: bilateral Lung location: lower lobe of lung Qualified Code(s): J69.0 - Pneumonitis due to inhalation of food and vomit (6) CAD (coronary artery disease) Assessment/Plan: -aspirin on hold due to hemoptysis Code(s): I25.10 - ATHSCL HEART DISEASE OF [place] CORONARY ARTERY W/O ANG PCTRS Qualifiers: Coronary Disease-Associated Artery/Lesion type: [place] artery [place] vs. transplanted heart: [place] heart Associated angina: without angina Qualified Code(s): I25.10 - Atherosclerotic heart disease of [place] coronary artery without angina pectoris (7) COPD (chronic obstructive pulmonary disease) Assessment/Plan: -Pulm on board -keep SpO2 >90% -O2 via NC -bronchodilators Code(s): J44.9 - CHRONIC OBSTRUCTIVE PULMONARY DISEASE, UNSPECIFIED Qualifiers: COPD type: unspecified COPD Qualified Code(s): J44.9 - Chronic obstructive pulmonary disease, unspecified (8) HLD (hyperlipidemia) Assessment/Plan: -Crestor Code(s): E78.5 - HYPERLIPIDEMIA, UNSPECIFIED Qualifiers: Hyperlipidemia type: pure hypercholesterolemia Qualified Code(s): E78.00 - Pure hypercholesterolemia, unspecified; E78.0 - Pure hypercholesterolemia (9) HTN (hypertension) Assessment/Plan: -monitor BP -Amlodipine Code(s): I10 - ESSENTIAL (PRIMARY) HYPERTENSION Qualifiers: Hypertension type: essential hypertension Qualified Code(s): I10 - Essential (primary) hypertension (10) History of throat cancer Code(s): Z85.819 - PRSNL HX OF IZAIAH GALO OF UNSP SITE LIP,ORAL CAV,& PHARYNX (11) Hypothyroid Assessment/Plan: -Levothyroxine Code(s): E03.9 - HYPOTHYROIDISM, UNSPECIFIED Qualifiers: Hypothyroidism type: unspecified Qualified Code(s): E03.9 - Hypothyroidism , unspecified Assessment/Plan see problem list
--- NOTE | 2019-02-10 13:34 | PN ---
Progress Note, Physician History of Present Illness: pulmonary alert,feeling better,-hemoptysis,-sob - Current Medication List Current Medications: Active Medications Acetaminophen (Tylenol -) 650 mg PO Q6H PRN PRN Reason: PAIN LEVEL 1-5 Last Admin: 02/07/19 11:04 Dose: 650 mg Albuterol Sulfate (Ventolin 0.083% Nebulizer Soln -) 1 amp NEB Q6H PRN PRN Reason: SHORT OF BREATH/WHEEZING Amlodipine Besylate (Norvasc -) 2.5 mg PEG DAILY [facility] Last Admin: 02/10/19 10:14 Dose: Not Given Cholecalciferol (Vitamin D3 -) 2,000 unit GT DAILY [facility] Last Admin: 02/10/19 10:03 Dose: 2,000 unit Cyanocobalamin (Vitamin B12 -) 1,000 mcg GT DAILY [facility] Last Admin: 02/10/19 10:04 Dose: 1,000 mcg Gabapentin (Neurontin Oral Liquid -) 100 mg GT TID [facility] Last Admin: 02/10/19 06:58 Dose: 100 mg Piperacillin Sod/Tazobactam (Sod 4.5 gm/ Dextrose) 100 mls @ 200 mls/hr IVPB Q8H-IV [facility]; Protocol Last Admin: 02/10/19 10:03 Dose: 200 mls/hr Vancomycin HCl (Vancomycin (Pre-Docked)) 1,000 mg in 250 mls @ 166.667 mls/hr IVPB Q12H [facility]; Protocol Last Admin: 02/10/19 04:53 Dose: 166.667 mls/hr Levothyroxine Sodium (Synthroid -) 125 mcg PO DAILY@0700 [facility] Last Admin: 02/10/19 06:57 Dose: 125 mcg Lidocaine (Lidoderm Patch -) 1 patch TP DAILY [facility] Last Admin: 02/10/19 10:05 Dose: 1 patch Miscellaneous (Lidoderm Patch Removal) 1 each MC DAILY@2200 [facility] Last Admin: 02/09/19 21:50 Dose: 1 each Rosuvastatin Calcium (Crestor -) 10 mg PO HS [facility] Last Admin: 02/09/19 21:47 Dose: 10 mg - Objective Vital Signs: Vital Signs Temperature 98.4 F 02/10/19 10:00 Pulse Rate 78 02/10/19 10:00 Respiratory Rate 18 02/10/19 10:00 Blood Pressure 145/83 12/04/19 10:00 O2 Sat by Pulse Oximetry (%) 96 02/10/19 09:00 Constitutional: Yes: Well Nourished, Calm Eyes: Yes: WNL HENT: Yes: WNL Neck: Yes: WNL Cardiovascular: Yes: Regular Rate and Rhythm, S1, S2 Respiratory: Yes: Rales (bibasilar rales) Gastrointestinal: Yes: Normal Bowel Sounds, Soft, Other (+ gt) Extremities: Yes: WNL Edema: No Labs: CBC, BMP 02/09/19 07:43 Problem List - Problems (1) Hemoptysis Code(s): R04.2 - HEMOPTYSIS (2) PNA (pneumonia) Code(s): J18.9 - PNEUMONIA, UNSPECIFIED ORGANISM Qualifiers: Pneumonia type: due to unspecified organism Laterality: right Lung location: lower lobe of lung Qualified Code(s): J18.9 - Pneumonia, unspecified organism (3) Aspiration pneumonia Code(s): J69.0 - PNEUMONITIS DUE TO INHALATION OF FOOD AND VOMIT Qualifiers: Aspiration pneumonia type: unspecified Laterality: bilateral Lung location: lower lobe of lung Qualified Code(s): J69.0 - Pneumonitis due to inhalation of food and vomit (4) Autonomic postural hypotension Code(s): I95.1 - ORTHOSTATIC HYPOTENSION (5) CAD (coronary artery disease) Code(s): I25.10 - ATHSCL HEART DISEASE OF [place] CORONARY ARTERY W/O ANG PCTRS Qualifiers: Coronary Disease-Associated Artery/Lesion type: [place] artery [place] vs. transplanted heart: [place] heart Associated angina: without angina Qualified Code(s): I25.10 - Atherosclerotic heart disease of [place] coronary artery without angina pectoris (6) COPD (chronic obstructive pulmonary disease) Code(s): J44.9 - CHRONIC OBSTRUCTIVE PULMONARY DISEASE, UNSPECIFIED Qualifiers: COPD type: unspecified COPD Qualified Code(s): J44.9 - Chronic obstructive pulmonary disease, unspecified (7) Dysautonomia orthostatic hypotension syndrome Code(s): G90.3 - MULTI-SYSTEM DEGENERATION OF THE AUTONOMIC NERVOUS SYSTEM (8) HTN (hypertension) Code(s): I10 - ESSENTIAL (PRIMARY) HYPERTENSION Qualifiers: Hypertension type: essential hypertension Qualified Code(s): I10 - Essential (primary) hypertension (9) History of throat cancer Code(s): Z85.819 - PRSNL HX OF MALIG NEOPLM OF UNSP SITE LIP,ORAL CAV,& PHARYNX (10) Orthostatic hypotension Code(s): I95.1 - ORTHOSTATIC HYPOTENSION Assessment/Plan A/P Hemoptysis resolved Pneumonia likely recurrent Aspiration Sepsis Lactic Acidosis improved h/o Pharyngeal Ca s/p chemo/RT HTN Hyperlipidemia Hypothyroidism - monitor/quantify hemoptysis - continue antibiotics per ID - aspiration precautions - inhaled bronchodilators - DVT prophylaxis - chest x-ray today DR UMANA
[2019-02-10] MEDS: LIDOCAINE PATCH REMOVAL MC SCH (22:46)
[2019-02-10] MEDS: ROSUVASTATIN CA 10 MG TABLET (FP) PO SCH (22:46)
[2019-02-11] MEDS ORDERED: PIPERACILLIN/TAZOBACTAM 4.5 GM VIAL IVPB ONE ×2 (01:20→09:48)
[2019-02-11] MEDS ORDERED: DEXTROSE 5%-WATER 100 ML IVPB ONE ×2 (01:21→09:49)
[2019-02-11] MEDS: PIPERACILLIN/TAZOB 4.5 GM 4.5 GM in DEXTROSE 5%-WATER 100 ML IVPB SCH ×2 (01:51→10:40)
[2019-02-11] MEDS: VANCOMYCIN 1 GRAM (PRE-DOCKED) 1,000 MG/250 ML BAG IVPB SCH ×2 (03:28→17:58)
[2019-02-11] MEDS: GABAPENTIN 250 MG/5 ML ORAL SOLUTION, 470 ML BOTTLE GT SCH ×3 (06:07→21:28)
[2019-02-11] MEDS: LEVOTHYROXINE NA 125 MCG TABLET (FP) PO SCH (06:07)
[2019-02-11 09:19] LABS: HEMATOCRIT 31.7 % (35.4-49); HEMOGLOBIN 10.4 GM/dL (11.7-16.9); MCH 29.6 pg (25.7-33.7); MCHC 32.6 g/dl (32.0-35.9); MEAN CELL VOLUME 90.7 fl (80-96); MEAN PLT VOLUME 8.2 fl (7.5-11.1); PLATELET COUNT 240 K/MM3 (134-434); RDW 13.9 % (11.9-15.9); WHITE BLOOD COUNT 4.9 K/mm3 (4.0-10.0)
[2019-02-11 09:47] LABS: ALBUMIN 2.7 g/dl (3.4-5.0); BILIRUBIN,TOTAL 0.3 mg/dL (0.2-1); BLOOD UREA NITROGEN 16.6 mg/dL (7-18); CALCIUM 8.7 mg/dL (8.5-10.1); CREATININE 0.8 mg/dL (0.55-1.3); POTASSIUM 3.9 mmol/L (3.5-5.1); TOT PROT 6.3 g/dl (6.4-8.2)
[2019-02-11] MEDS ORDERED: PT OWN MED DRAWER 7, Y5N ONE (09:48)
[2019-02-11] MEDS: amLODIPine BESYLATE 2.5 MG TABLET (FP) PEG SCH (10:39)
[2019-02-11] MEDS: CYANOCOBALAMIN 1,000 MCG TABLET (FP) GT SCH (10:40)
[2019-02-11] MEDS: CHOLECALCIFEROL (VIT D3) 1,000 UNIT (25 MCG) TABLET GT SCH (10:40)
[2019-02-11] MEDS: LIDOCAINE 5% TOPICAL PATCH TP SCH (10:40)
--- NOTE | 2019-02-11 12:48 | PN ---
Progress Note, Physician Chief Complaint: patient seen and examined feeling better coughing is better slight blood tinged sputum - Current Medication List Current Medications: Active Medications Acetaminophen (Tylenol -) 650 mg PO Q6H PRN PRN Reason: PAIN LEVEL 1-5 Last Admin: 02/07/19 11:04 Dose: 650 mg Albuterol Sulfate (Ventolin 0.083% Nebulizer Soln -) 1 amp NEB Q6H PRN PRN Reason: SHORT OF BREATH/WHEEZING Amlodipine Besylate (Norvasc -) 2.5 mg PEG DAILY [facility] Last Admin: 02/11/19 10:39 Dose: Not Given Cholecalciferol (Vitamin D3 -) 2,000 unit GT DAILY [facility] Last Admin: 02/11/19 10:40 Dose: 2,000 unit Cyanocobalamin (Vitamin B12 -) 1,000 mcg GT DAILY [facility] Last Admin: 02/11/19 10:40 Dose: 1,000 mcg Gabapentin (Neurontin Oral Liquid -) 100 mg GT TID [facility] Last Admin: 02/11/19 06:07 Dose: 100 mg Piperacillin Sod/Tazobactam (Sod 4.5 gm/ Dextrose) 100 mls @ 200 mls/hr IVPB Q8H-IV [facility]; Protocol Last Admin: 02/11/19 10:40 Dose: 200 mls/hr Vancomycin HCl (Vancomycin (Pre-Docked)) 1,000 mg in 250 mls @ 166.667 mls/hr IVPB Q12H [facility]; Protocol Last Admin: 02/11/19 03:28 Dose: 166.667 mls/hr Levothyroxine Sodium (Synthroid -) 125 mcg PO DAILY@0700 [facility] Last Admin: 02/11/19 06:07 Dose: 125 mcg Lidocaine (Lidoderm Patch -) 1 patch TP DAILY [facility] Last Admin: 02/11/19 10:40 Dose: 1 patch Miscellaneous (Lidoderm Patch Removal) 1 each MC DAILY@2200 [facility] Last Admin: 02/10/19 22:46 Dose: 1 each Rosuvastatin Calcium (Crestor -) 10 mg PO HS [facility] Last Admin: 02/10/19 22:46 Dose: 10 mg - Objective Vital Signs: Vital Signs Temperature 98.3 F 02/11/19 06:00 Pulse Rate 76 02/11/19 06:00 Respiratory Rate 18 02/11/19 06:00 Blood Pressure 169/100 12/05/19 06:00 O2 Sat by Pulse Oximetry (%) 96 02/10/19 21:00 Constitutional: Yes: Calm Cardiovascular: Yes: Regular Rate and Rhythm, S1, S2 Respiratory: Yes: CTA Bilaterally Gastrointestinal: Yes: Normal Bowel Sounds, Soft, Other (g tube) Edema: No Neurological: Yes: Alert, Oriented Labs: CBC, BMP 02/11/19 08:00 02/11/19 08:00 INR, PTT INR 1.02 (0.83-1.09) 02/04/19 17:19 Problem List - Problems (1) Hemoptysis Assessment/Plan: possibly aspiration pna vancomycin and zosyn for now lactic acidosis resolved [place] fay- NPO cta no PE Chest CT extensive consolidation in both lungs more marked in right lung Code(s): R04.2 - HEMOPTYSIS (2) Hypothyroid Assessment/Plan: synthroid Code(s): E03.9 - HYPOTHYROIDISM, UNSPECIFIED Qualifiers: Hypothyroidism type: unspecified Qualified Code(s): E03.9 - Hypothyroidism , unspecified
--- NOTE | 2019-02-11 13:47 | PN ---
Progress Note (short form) - Note Progress Note: PULMONARY No further hemoptysis. No fevers recorded. Minimal cough. Vital Signs Period Temp Pulse Resp BP Sys/Leblanc Pulse Ox Last 24 Hr 98.2 F-98.5 F 76-81 18-20 139-169/84-100 96 Gen: NAD at rest Heart: RRR Lung: basilar rales Abd: soft, nontender Ext: no edema CBC, BMP 02/11/19 08:00 02/11/19 08:00 Active Medications Acetaminophen (Tylenol -) 650 mg PO Q6H PRN PRN Reason: PAIN LEVEL 1-5 Last Admin: 02/07/19 11:04 Dose: 650 mg Albuterol Sulfate (Ventolin 0.083% Nebulizer Soln -) 1 amp NEB Q6H PRN PRN Reason: SHORT OF BREATH/WHEEZING Amlodipine Besylate (Norvasc -) 2.5 mg PEG DAILY [facility] Last Admin: 02/11/19 10:39 Dose: Not Given Cholecalciferol (Vitamin D3 -) 2,000 unit GT DAILY [facility] Last Admin: 02/11/19 10:40 Dose: 2,000 unit Cyanocobalamin (Vitamin B12 -) 1,000 mcg GT DAILY [facility] Last Admin: 02/11/19 10:40 Dose: 1,000 mcg Gabapentin (Neurontin Oral Liquid -) 100 mg GT TID [facility] Last Admin: 02/11/19 13:08 Dose: 100 mg Piperacillin Sod/Tazobactam (Sod 4.5 gm/ Dextrose) 100 mls @ 200 mls/hr IVPB Q8H-IV [facility]; Protocol Last Admin: 02/11/19 10:40 Dose: 200 mls/hr Vancomycin HCl (Vancomycin (Pre-Docked)) 1,000 mg in 250 mls @ 166.667 mls/hr IVPB Q12H [facility]; Protocol Last Admin: 02/11/19 03:28 Dose: 166.667 mls/hr Levothyroxine Sodium (Synthroid -) 125 mcg PO DAILY@0700 [facility] Last Admin: 02/11/19 06:07 Dose: 125 mcg Lidocaine (Lidoderm Patch -) 1 patch TP DAILY [facility] Last Admin: 02/11/19 10:40 Dose: 1 patch Miscellaneous (Lidoderm Patch Removal) 1 each MC DAILY@2200 [facility] Last Admin: 02/10/19 22:46 Dose: 1 each Rosuvastatin Calcium (Crestor -) 10 mg PO HS [facility] Last Admin: 02/10/19 22:46 Dose: 10 mg A/P Hemoptysis Pneumonia likely recurrent Aspiration Sepsis Lactic Acidosis improved h/o Pharyngeal Ca s/p chemo/RT HTN Hyperlipidemia Hypothyroidism - monitor/quantify hemoptysis - continue antibiotics - ID f/u for length of course - aspiration precautions - inhaled bronchodilators - DVT prophylaxis
--- NOTE | 2019-02-11 17:40 | PN ---
Progress Note (short form) - Note Progress Note: hemoptysis resolved minimal cough Vital Signs Period Temp Pulse Resp BP Sys/Leblanc Pulse Ox Last 24 Hr 97.3 F-98.3 F 76-80 18-20 109-169/62-100 96-96 cor rrr lungs decreased bs at bases abd soft,nt ext no edema +GT CBC, BMP 02/11/19 08:00 02/11/19 08:00 Microbiology 02/04/19 17:19 Blood - Peripheral Venous Blood Culture - Final NO GROWTH AFTER 5 DAYS INCUBATION 02/04/19 17:19 Blood - Peripheral Venous Blood Culture - Final NO GROWTH AFTER 5 DAYS INCUBATION 02/04/19 17:47 Urine - Urine Clean Catch Urine Culture - Final NO GROWTH OBTAINED a/p hemoptysis likely aspiration pneumonia history of head and neck cancer prior MRSA day #7 antibiotics vanco/zosyn switch to empiric bactrim given prior history of MRSA chest pt Problem List - Problems (1) Hemoptysis Code(s): R04.2 - HEMOPTYSIS (2) PNA (pneumonia) Code(s): J18.9 - PNEUMONIA, UNSPECIFIED ORGANISM Qualifiers: Pneumonia type: due to unspecified organism Laterality: right Lung location: lower lobe of lung Qualified Code(s): J18.9 - Pneumonia, unspecified organism (3) History of throat cancer Code(s): Z85.819 - PRSNL HX OF MALIG NEOPLM OF [place] SITE LIP,ORAL CAV,& PHARYNX (4) MRSA (methicillin resistant staph aureus) culture positive Code(s): Z22.322 - CARRIER OR SUSPECTED CARRIER OF METHICILLIN RESIS STAPH
[2019-02-11] MEDS: LIDOCAINE PATCH REMOVAL MC SCH (21:28)
[2019-02-11] MEDS: SULFAMETHOXAZOLE/TRIMETHOPRIM 800MG/160MG D.S. TABLET PO SCH (21:28)
[2019-02-11] MEDS: ROSUVASTATIN CA 10 MG TABLET (FP) PO SCH (21:28)
[2019-02-12] MEDS: LEVOTHYROXINE NA 125 MCG TABLET (FP) PO SCH (06:11)
[2019-02-12] MEDS: GABAPENTIN 250 MG/5 ML ORAL SOLUTION, 470 ML BOTTLE GT SCH ×2 (06:11→14:12)
--- NOTE | 2019-02-12 08:53 | PN ---
Progress Note (short form) - Note Progress Note: No further hemoptysis. No fevers recorded. Minimal cough. Feels overall better. Intake & Output 02/09/19 02/10/19 02/11/19 02/12/19 23:59 23:59 23:59 23:59 Intake Total 0 2470 350 200 Output Total 300 Balance -300 2470 350 200 Last Vital Signs Temp Pulse Resp BP Pulse Ox 97.9 F 71 20 107/55 L 96 02/12/19 06:03 02/12/19 06:03 02/11/19 22:00 02/12/19 06:03 02/11/19 21:00 Active Medications Acetaminophen (Tylenol -) 650 mg PO Q6H PRN PRN Reason: PAIN LEVEL 1-5 Last Admin: 02/07/19 11:04 Dose: 650 mg Albuterol Sulfate (Ventolin 0.083% Nebulizer Soln -) 1 amp NEB Q6H PRN PRN Reason: SHORT OF BREATH/WHEEZING Amlodipine Besylate (Norvasc -) 2.5 mg PEG DAILY [facility] Last Admin: 02/11/19 10:39 Dose: Not Given Cholecalciferol (Vitamin D3 -) 2,000 unit GT DAILY [facility] Last Admin: 02/11/19 10:40 Dose: 2,000 unit Cyanocobalamin (Vitamin B12 -) 1,000 mcg GT DAILY [facility] Last Admin: 02/11/19 10:40 Dose: 1,000 mcg Gabapentin (Neurontin Oral Liquid -) 100 mg GT TID [facility] Last Admin: 02/12/19 06:11 Dose: 100 mg Levothyroxine Sodium (Synthroid -) 125 mcg PO DAILY@0700 [facility] Last Admin: 02/12/19 06:11 Dose: 125 mcg Lidocaine (Lidoderm Patch -) 1 patch TP DAILY [facility] Last Admin: 02/11/19 10:40 Dose: 1 patch Miscellaneous (Lidoderm Patch Removal) 1 each MC DAILY@2200 [facility] Last Admin: 02/11/19 21:28 Dose: 1 each Rosuvastatin Calcium (Crestor -) 10 mg PO HS [facility] Last Admin: 02/11/19 21:28 Dose: 10 mg Trimethoprim/Sulfamethoxazole (Bactrim Ds -) 1 each PO BID [facility] Last Admin: 02/11/19 21:28 Dose: 1 each Gen: NAD at rest Heart: RRR Lung: few basilar rhonchi Abd: soft, nontender Ext: no edema Laboratory Results - last 24 hr 02/11/19 02/11/19 08:00 08:00 WBC 4.9 RBC 3.50 L Hgb 10.4 L Hct 31.7 L MCV 90.7 MCH 29.6 MCHC 32.6 RDW 13.9 Plt Count 240 MPV 8.2 Sodium 139 Potassium 3.9 Chloride 101 Carbon Dioxide 33 H Anion Gap 5 L BUN 16.6 Creatinine 0.8 Est GFR (CKD-EPI)AfAm 103.44 Est GFR (CKD-EPI)NonAf 89.25 Random Glucose 180 H Calcium 8.7 Total Bilirubin 0.3 AST 13 L ALT 19 Alkaline Phosphatase 68 Total Protein 6.3 L Albumin 2.7 L A/P Hemoptysis Pneumonia likely recurrent Aspiration Sepsis Lactic Acidosis improved h/o Pharyngeal Ca s/p chemo/RT HTN Hyperlipidemia Hypothyroidism - PO Bactrim - Repeat Chest imaging in 4 to 6 weeks - Aspiration precautions - Inhaled bronchodilators DC Home Dr Powell
[2019-02-12 09:34] LABS: ALBUMIN 2.8 g/dl (3.4-5.0); BILIRUBIN,TOTAL 0.3 mg/dL (0.2-1); BLOOD UREA NITROGEN 19.8 mg/dL (7-18); CALCIUM 9.2 mg/dL (8.5-10.1); CREATININE 0.8 mg/dL (0.55-1.3); POTASSIUM 3.9 mmol/L (3.5-5.1); TOT PROT 6.5 g/dl (6.4-8.2)
[2019-02-12] MEDS: CHOLECALCIFEROL (VIT D3) 1,000 UNIT (25 MCG) TABLET GT SCH (10:15)
[2019-02-12] MEDS: CYANOCOBALAMIN 1,000 MCG TABLET (FP) GT SCH (10:15)
[2019-02-12] MEDS: SULFAMETHOXAZOLE/TRIMETHOPRIM 800MG/160MG D.S. TABLET PO SCH (10:15)
[2019-02-12] MEDS: amLODIPine BESYLATE 2.5 MG TABLET (FP) PEG SCH (10:17)
[2019-02-12] MEDS: LIDOCAINE 5% TOPICAL PATCH TP SCH (10:17)
[2019-02-12 15:33] VITALS: BP 129/72; PULSE 74; TEMP 98.5
--- NOTE | 2019-02-12 16:06 | DS ---
Physical Examination Vital Signs: Vital Signs Temperature 98.5 F 02/12/19 15:31 Pulse Rate 74 02/12/19 15:31 Respiratory Rate 20 02/12/19 15:31 Blood Pressure 129/72 02/12/19 15:31 O2 Sat by Pulse Oximetry (%) 95 02/12/19 09:00 Constitutional: Yes: Calm Cardiovascular: Yes: S1, S2 Respiratory: Yes: CTA Bilaterally Gastrointestinal: Yes: Normal Bowel Sounds, Soft, Other ( g tube) Edema: No Neurological: Yes: Alert, Oriented Labs: CBC, BMP 02/11/19 08:00 02/12/19 07:10 Discharge Summary Problems reviewed: Yes Reason For Visit: HEMOPTYSIS,PNEUMONIA Current Active Problems Back pain (Acute) Hemoptysis (Acute) MRSA (methicillin resistant staph aureus) culture positive (Acute) PNA (pneumonia) (Acute) Hospital Course: HIEF COMPLAINT: hemoptysis and fever PCP:Dr. Murillo HISTORY OF PRESENT ILLNESS: This is a 73 year old male with history of pharyngeal cancer treated with radiation and chemotherpay in 2011, PEG placement in June 2017 (follows with Hematology/Oncologist -Dr. Qureshi at [facility]) and labilr blood pressures(sees Dr. Rodriguez for autonomic dysfunction, SBP 60-250, on who presents reporting a fever of 103 2 days ago and significant hemoptysis. He dneid shortness of breath, chest pain, dizziness ER course was notable for: (1)CXR - right sided pneumonia, received IV Vancomycin and Pippercillin cxr improved repeat CT scan in a few weeks patient to go home on po bactrim 7 days Condition: Improved - Instructions Referrals: Fern Murillo MD [Primary Care Provider] - - Home Medications Comprehensive Discharge Medication List: Ambulatory Orders Aspirin [ASA -] 81 mg PO DAILY 10/20/15 Cholecalciferol (Vitamin D3) [Vitamin D3] 2,000 unit PO DAILY 10/20/15 Cyanocobalamin (Vitamin B-12) [Vitamin B-12] 1,000 mcg PO DAILY 10/20/15 Levothyroxine Sodium [Unithroid] 135 mcg PO DAILY 10/20/15 Rosuvastatin Calcium [Crestor] 10 mg PO HS 10/20/15 Gabapentin Liquid [Neurontin Oral Liquid -] 100 mg GT TID #120 ml 02/19/18 Albuterol 0.083% Nebulizer [place] [Ventolin 0.083% Nebulizer Soln -] 1 amp NEB RQID PRN amp 12/22/18 Amlodipine Besylate [Norvasc -] 2.5 mg PEG DAILY tablet 12/22/18 Lidocaine 5% Patch [Lidoderm -] 1 patch TP DAILY #30 patch 12/22/18 Sulfamethoxazole/Trimethoprim [Bactrim Oral Suspension -] 20 ml PO BID #560 ml 12/22/18
== END 2019-02-12 17:18 | disposition home or self-care (01) | DRG 178 ==
LOC: JER 16:22 → JERBED 18:56 → J7W 02-05 18:35 → J5S 02-08 16:54
PROVIDERS: ADMIT Internal Medicine; ATTEND Family Medicine
DX: J69.0 Pneumonitis due to inhalation of food and vomit (principal); G90.3 Multi-system degeneration of the autonomic nervous system; E87.2 Acidosis; I95.1 Orthostatic hypotension; J44.9 Chronic obstructive pulmonary disease, unspecified; E03.9 Hypothyroidism, unspecified; E78.5 Hyperlipidemia, unspecified; E11.9 Type 2 diabetes mellitus without complications; K21.9 Gastro-esophageal reflux disease without esophagitis; N40.0 Benign prostatic hyperplasia without lower urinary tract symptoms; I10 Essential (primary) hypertension; I25.10 Atherosclerotic heart disease of native coronary artery without angina pectoris; D64.9 Anemia, unspecified; R50.9 Fever, unspecified; M54.9 Dorsalgia, unspecified; Z22.322 Carrier or suspected carrier of Methicillin resistant Staphylococcus aureus; Z85.819 Personal history of malignant neoplasm of unspecified site of lip, oral cavity, and pharynx; Z93.1 Gastrostomy status; Z99.81 Dependence on supplemental oxygen
CPT/HCPCS: 36415; 71045-TC-FY; 71275-TC; 80048; 80053; 81003; 82550; 82803; 83605; 83735; 84443; 84484; 85025; 85027; 85610; 85730; 87040; 87070; 87077; 87086; 87186; 87205; 93005; 93010; 99285-25; G0480; J0131; J7030; Q9967

== ENCOUNTER 2019-03-01 14:03 | Emergency (ER) | payer OTHER, BC ==
[2019-03-01 14:10] VITALS: TEMP 98.3; BMI 26.4
--- NOTE | 2019-03-01 14:25 | PDOC ---
History of Present Illness - General Chief Complaint: Revisit,Radiology Variance Stated Complaint: SPITTING UP BLOOD Time Seen by Provider: 03/01/19 14:20 History Source: Patient, Old Records - History of Present Illness Initial Comments: 03/01/19 14:24 73y M with PMH of Pharyngeal Ca (s/p chemotherapy and radiation 2011), COPD (2L O2), Autonomic orthostatic hypotension, HLD, Hypothyroidism, DM, G-Tube presenting to ED for hemoptysis. Patient states that he was had multiple episodes of hemoptysis and was diagnosed with pna during those times. He was recently discharged from the hospital on 02/12 for pna. He says since he has been home, he was fine until yesterday. He describes the sputum as blood tinged and "not a deep red color". Denies SOB, chest pain, fevers, chills, night sweats , leg swelling, throat pain, neck pain, headache. He was told by his PMD to come to the ER. Is not on AC or immunomodulators. PMD: Chidi Pulm: Shanthi PMH: see hpi PSH: Meds: see med rec Allergies: Flomax Past History - Past Medical History Allergies/Adverse Reactions: Allergies Allergy/AdvReac Type Severity Reaction Status Date / Time tamsulosin HCl [From Flomax] AdvReac Intermediate dizziness Verified 03/01/19 14 :05 Home Medications: Ambulatory Orders Aspirin [ASA -] 81 mg PO DAILY 10/20/15 Cholecalciferol (Vitamin D3) [Vitamin D3] 2,000 unit PO DAILY 10/20/15 Cyanocobalamin (Vitamin B-12) [Vitamin B-12] 1,000 mcg PO DAILY 10/20/15 Rosuvastatin Calcium [Crestor] 10 mg PO HS 10/20/15 Gabapentin Liquid [Neurontin Oral Liquid -] 100 mg GT TID #120 ml 02/19/18 Albuterol 0.083% Nebulizer Malissa [Ventolin 0.083% Nebulizer Soln -] 1 amp NEB RQID PRN amp 12/22/18 Amlodipine Besylate [Norvasc -] 2.5 mg PEG DAILY tablet 12/22/18 Lidocaine 5% Patch [Lidoderm -] 1 patch TP DAILY #30 patch 12/22/18 Levothyroxine [Synthroid -] 125 mcg PO DAILY@0700 tablet 02/12/19 Sulfamethoxazole/Trimethoprim [Bactrim Oral Suspension -] 20 ml PO BID #560 ml 02/12/19 Cefuroxime Axetil [Ceftin -] 500 mg PO Q12H #14 tablet 03/01/19 Anemia: Yes Asthma: No Cancer: Yes (Tongue and throat CA 2010) Cardiac Disorders: No CVA: No COPD: No CHF: No Dementia: No Diabetes: No GI Disorders: Yes (GERD) Disorders: Yes (BPH) HTN: Yes Hypercholesterolemia: Yes Liver Disease: No Seizures: No Thyroid Disease: Yes (hypo) - Surgical History Abdominal Surgery: Yes (feeding tube/PEG) Appendectomy: No Cardiac Surgery: No Cholecystectomy: No GI Surgery: Yes (G tube) Lung Surgery: No Neurologic Surgery: No Orthopedic Surgery: Yes (left hand) - Immunization History Immunization Up to Date: Yes - Psycho Social/Smoking Cessation Hx Smoking History: Never smoked Have you smoked in the past 12 months: No Hx Alcohol Use: No Drug/Substance Use Hx: No Substance Use Type: None Hx Substance Use Treatment: No Review of Systems - Review of Systems Constitutional: No: Symptoms Reported HEENTM: No: Symptoms Reported Respiratory: Yes: See HPI, Hemoptysis Cardiac (ROS): No: Symptoms Reported ABD/GI: No: Symptoms Reported : No: Symptoms Reported Musculoskeletal: No: Symptoms Reported Integumentary: No: Symptoms Reported Neurological: No: Symptoms reported *Physical Exam - Vital Signs Last Vital Signs Temp Pulse Resp BP Pulse Ox 98.3 F 88 1 L 98/52 L 92 L 03/01/19 14:05 03/01/19 14:05 03/01/19 14:05 03/01/19 14:05 03/01/19 14:05 - Physical Exam General Appearance: Yes: Nourished, Appropriately Dressed. No: Apparent Distress HEENT: positive: EOMI, JOSE, Normal ENT Inspection Neck: positive: Trachea midline, Supple Respiratory/Chest: positive: Lungs Clear, Normal Breath Sounds. negative: Crackles, Rales, Rhonchi, Stridor, Wheezing Cardiovascular: positive: Regular Rhythm, Regular Rate. negative: S1, S2, Edema , JVD, Murmur Vascular Pulses: Dorsalis-Pedis (R): 2+, Doralis-Pedis (L): 2+ Gastrointestinal/Abdominal: positive: Normal Bowel Sounds, Soft. negative: Tender Musculoskeletal: negative: CVA Tenderness Extremity: positive: Normal Capillary Refill. negative: Swelling, Calf Tenderness, Erythema Integumentary: positive: Normal Color, Dry, Warm Neurologic: positive: identification and records commander II-XII NML intact, Fully Oriented, Alert, Normal Mood/ Affect, Normal Response, Motor Strength 07/12 ED Treatment Course - LABORATORY CBC & Chemistry Diagram: 03/01/19 14:45 03/01/19 14:45 - RADIOLOGY Radiology Studies Ordered: Category Date Time Status CHEST X-RAY PORTABLE* [RAD] Stat Radiology 03/01/19 14:22 Ordered Medical Decision Making - Medical Decision Making 03/02/19 00:52 73y M presenting for hemoptysis. vitals wnl ddx: pe, acs, bronchitis, pleural effusion, mass/malignancy, fistula, pna, tb low suspicion for tb: pt is not immunocompromised. will obtain baslic labs, cardiac labs and cxr labs wnl, neggative trop. cxr does not show any pathology: no consolidation or infiltrates; compared to prior xray appears as if infiltrates have resolved. ekg: no maryse or depressions. very low suspicion for pe. discussed case with PMD. he is worried pt may have pna however given no white count and normal xray, pt does not need to be admitted. PMD recommended cefdinir 500 bid x7 days and outpt follow up. upon walking patient, he did not desaturate. will dc home. given return precautions Discharge - Discharge Information Problems reviewed: Yes Clinical Impression/Diagnosis: Hemoptysis Condition: Good Disposition: HOME - Admission No - Additional Discharge Information Prescriptions: Cefuroxime Axetil [Ceftin -] 500 mg PO Q12H #14 tablet - Follow up/Referral Referrals: Fern Murillo MD [Primary Care Provider] - - Patient Discharge Instructions Patient Printed Discharge Instructions: DI for Hemoptysis Additional Instructions: You were seen in the emergency room today for hemoptysis. The blood work is normal, and the xray does not show signs of pneumonia. Your doctor recommended you take a new antibiotic which was sent to your pharmacy. Take it twice a day for 7 days. Please make an appointment with Dr. Murillo this week if you can or early next week. Come back to the emergency room if you develop fever, worsening cough, shortness of breath, chest pain or if any new or concerning symptom develops. Thank you - Post Discharge Activity
[2019-03-01 15:00] LABS: VENOUS PC02 60.7 mmHg (38-52); VENOUS PH 7.37 (7.31-7.41)
[2019-03-01 15:01] LABS: VENOUS PO2 < 49 mmHg (28-48)
[2019-03-01 15:07] LABS: BASO % 0.2 % (0-2.0); EOS % 3.9 % (0-4.5); HEMATOCRIT 36.4 % (35.4-49); HEMOGLOBIN 11.7 GM/dL (11.7-16.9); LYMPH % 13.5 % (8-40); MCH 29.4 pg (25.7-33.7); MCHC 32.3 g/dl (32.0-35.9); MEAN CELL VOLUME 91.1 fl (80-96); MEAN PLT VOLUME 8.7 fl (7.5-11.1); MONO % 11.3 % (3.8-10.2); NEUT % 71.1 % (42.8-82.8); PLATELET COUNT 156 K/MM3 (134-434); RDW 14.3 % (11.9-15.9); WHITE BLOOD COUNT 4.2 K/mm3 (4.0-10.0)
--- NOTE | 2019-03-01 15:28 | PDOC ---
Attending Attestation - Resident Resident Name: Georgina Zhang - ED Attending Attestation I have performed the following: I have examined & evaluated the patient, The case was reviewed & discussed with the resident, I agree w/resident's findings & plan, Exceptions are as noted - HPI HPI: 03/01/19 15:27 73y M hx of copd (2L of O2), layrngeal CA (sp chemo, radiation 2011), autonomic orthostatic hypotension, hld, hyptothyroidism, dm, G tub dependent presents with complaint of hemoptysis since yesterday. Patient states that he was in his usual state of health after being discharged has been having his chronic cough that is productive of whitish to greenish sputum however since yesterday he noticed some redness in the hemoptysis. He denies any associated chest pain , dyspnea on exertion, shortness of breath, increased oxygen requirement. He does note that his hemoptysis seems to come with pneumonias. He notes multiple episodes of hemoptysis which were subsequently diagnosed as pneumonia. Patient denies any associated fever, chills, increased leg swelling, nausea, vomiting, diaphoresis, sore throat. Patient was sent to the ED by Dr. Murillo for his hemoptysis for evaluation physicial exam: GENERAL: The patient is awake, alert, and fully oriented, Nontoxic - in no acute distress. HEAD: Normocephalic, atraumatic. EYES: extraocular movements intact, sclera anicteric, conjunctiva clear. ENT: Normal voice, Moist mucous membranes. NECK: Normal range of motion, supple LUNGS: Breath sounds equal, clear to auscultation bilaterally. No wheezes, no rhonchi, no rales. HEART: Regular rate and rhythm, normal S1 and S2 without murmur, rub or gallop. ABDOMEN: Soft, g tube in place, nontender, No guarding, no rebound. No CVA tenderness EXTREMITIES: Normal range of motion, no edema, neg homans, no calf tenderness NEUROLOGICAL: No facial assymetry, Normal speech, PSYCH: Normal mood, normal affect. SKIN: Warm, Dry, normal turgor, - Physicial Exam PE: 03/05/19 11:01 see above - Medical Decision Making 03/01/19 16:15 Differential for the patient's symptoms includes possible pneumonia, bronchitis, The patient's chest x-ray is unremarkable without signs of pneumonia, patient also lacks any clinical findings suggestive of pneumonia. Also considered but do not think he is I am a pulmonary embolism as he has no increased dyspnea exertion, chest pain. Discussed with Dr. Murillo will ambulate the patient if he is at his baseline ambulation without change in his oxygen requirement or dyspnea will discharge with outpatient antibiotics and outpatient fu Heart Score/ECG Review - ECG Impressions Comment:: 03/01/19 16:16 Twelve-lead EKG was performed and reviewed by me. There is normal sinus rhythm with a normal rate. rate of 76 The axis is normal. The intervals are normal. There is normal R wave progression There are no ST or T wave abnormalities. Impression: Normal twelve-lead EKG
[2019-03-01 15:33] LABS: ALBUMIN 3.4 g/dl (3.4-5.0); BILIRUBIN,TOTAL 0.3 mg/dL (0.2-1); BLOOD UREA NITROGEN 25.2 mg/dL (7-18); CALCIUM 9.2 mg/dL (8.5-10.1); CREATININE 0.9 mg/dL (0.55-1.3); POTASSIUM 4.1 mmol/L (3.5-5.1); TOT PROT 7.1 g/dl (6.4-8.2)
[2019-03-01 16:51] VITALS: BP 118/73; PULSE 72
--- NOTE | 2019-03-02 10:16 | EKG ---
Test Reason : Blood Pressure : / mmHG Vent. Rate : 076 BPM Atrial Rate : 076 BPM P-R Int : 186 ms QRS Dur : 088 ms QT Int : 406 ms P-R-T Axes : 028 -17 031 degrees QTc Int : 456 ms NORMAL SINUS RHYTHM NORMAL ECG WHEN COMPARED WITH ECG OF 04-FEB-2019 16:41, PREMATURE SUPRAVENTRICULAR COMPLEXES ARE NO LONGER PRESENT Confirmed by Beto Mg MD ([id number]) on 03/02/2019 10:15:28 AM Referred By: Confirmed By:Beto Mg MD
== END 2019-03-01 16:52 | disposition home or self-care (01) ==
LOC: JER 14:03
DX: R04.2 Hemoptysis (principal); Z87.01 Personal history of pneumonia (recurrent); J44.9 Chronic obstructive pulmonary disease, unspecified; I10 Essential (primary) hypertension; Z99.81 Dependence on supplemental oxygen; E78.5 Hyperlipidemia, unspecified; I95.1 Orthostatic hypotension; N40.0 Benign prostatic hyperplasia without lower urinary tract symptoms; E03.9 Hypothyroidism, unspecified; Z85.818 Personal history of malignant neoplasm of other sites of lip, oral cavity, and pharynx; Z85.810 Personal history of malignant neoplasm of tongue; Z92.3 Personal history of irradiation; Z93.1 Gastrostomy status
CPT/HCPCS: 36415; 71045-TC-FY; 80053; 82803; 83605; 84484; 85025; 93005; 93010; 99283-25

== ENCOUNTER 2019-03-25 13:09 | Inpatient (IN) | payer OTHER, BC ==
--- NOTE | 2019-03-25 13:56 | PDOC ---
History of Present Illness - General Chief Complaint: Syncope/Near Syncope Stated Complaint: Syncope/Near Syncope Time Seen by Provider: 03/25/19 13:44 - History of Present Illness Initial Comments: Mr. Avila is a 73 y/o male with PMH significant for Pharyngeal Ca (s/p chemotherapy and radiation 2011), COPD (2L O2), Autonomic orthostatic hypotension, HLD, Hypothyroidism, DM, G-Tube presenting to ED for syncope. Reports that he syncopized twice today, at 7am and at 11am. Reports that he was walking to the bathroom (not on the toilet yet) when he started passing out. He reached for the door frame but was not able to hold on and fell onto the ground and hit the back of his head. Denies dizziness or heart palpitations prior to fall. Denies change in vision. Reports fever of 103 yesterday but has resolved today. Denies chest pain/shortness of breath. Denies abdominal pain. Reports that he has had numerous syncopal episodes in the past before. Reports that he was started on Northera (droxidopa) 1 year ago which keeps his blood pressure elevated and has greatly reduced the number of syncopal episodes. He does not present after every syncopal episode, but presents today because he was not able to get up on his own for several hours and had to be helped up by EMS. Past History - Past Medical History Allergies/Adverse Reactions: Allergies Allergy/AdvReac Type Severity Reaction Status Date / Time tamsulosin HCl [From Flomax] Allergy Intermediate dizziness Verified 03/25/19 20 :33 Home Medications: Ambulatory Orders Aspirin [ASA -] 81 mg PO DAILY 10/20/15 Cholecalciferol (Vitamin D3) [Vitamin D3] 2,000 unit PO DAILY 10/20/15 Cyanocobalamin (Vitamin B-12) [Vitamin B-12] 1,000 mcg PO DAILY 10/20/15 Rosuvastatin Calcium [Crestor] 10 mg PO HS 10/20/15 Gabapentin Liquid [Neurontin Oral Liquid -] 100 mg GT TID #120 ml 02/19/18 Albuterol 0.083% Nebulizer Malissa [Ventolin 0.083% Nebulizer Soln -] 1 amp NEB RQID PRN amp 12/22/18 Amlodipine Besylate [Norvasc -] 2.5 mg PEG DAILY tablet 12/22/18 Lidocaine 5% Patch [Lidoderm -] 1 patch TP DAILY #30 patch 12/22/18 Levothyroxine [Synthroid -] 125 mcg PO DAILY@0700 tablet 02/12/19 Sulfamethoxazole/Trimethoprim [Bactrim Oral Suspension -] 20 ml PO BID #560 ml 02/12/19 Cefuroxime Axetil [Ceftin -] 500 mg PO Q12H #14 tablet 03/01/19 Anemia: Yes Asthma: No Cancer: Yes (Tongue and throat CA 2010) Cardiac Disorders: No CVA: No COPD: No CHF: No Dementia: No Diabetes: No GI Disorders: Yes (GERD) Disorders: Yes (BPH) HTN: Yes Hypercholesterolemia: Yes Liver Disease: No Seizures: No Thyroid Disease: Yes (hypo) - Surgical History Abdominal Surgery: Yes (feeding tube/PEG) Appendectomy: No Cardiac Surgery: No Cholecystectomy: No GI Surgery: Yes (G tube) Lung Surgery: No Neurologic Surgery: No Orthopedic Surgery: Yes (left hand) - Immunization History Immunization Up to Date: Yes - Psycho Social/Smoking Cessation Hx Smoking History: Former smoker Have you smoked in the past 12 months: No Information on smoking cessation initiated: No Hx Alcohol Use: No Drug/Substance Use Hx: No Substance Use Type: None Hx Substance Use Treatment: No Cardiac Specific PMH - Complaint Specific PMHX Angina: No Pacemaker: No Pulmonary Embolus: No Review of Systems - Review of Systems Comments:: GENERAL/CONSTITUTIONAL: Reports fever. Reports generalized weakness. HEAD, EYES, EARS, NOSE AND THROAT: No change in vision. No change in hearing. No sore throat._ CARDIOVASCULAR: No chest pain or shortness of breath_ RESPIRATORY: Denies cough, hemoptysis_ GASTROINTESTINAL: No nausea, vomiting, diarrhea or constipation._ GENITOURINARY: No dysuria, frequency, or change in urination._ MUSCULOSKELETAL: No joint or muscle swelling or pain. No neck or back pain._ SKIN: No rash_ NEUROLOGIC: Reports headache. Reports syncope and loss of consciousness. ENDOCRINE: No increased thirst. No abnormal weight change_ HEMATOLOGIC/LYMPHATIC: No anemia, easy bleeding, or history of blood clots._ ALLERGIC/IMMUNOLOGIC: No hives or skin allergy._ *Physical Exam - Vital Signs Last Vital Signs Temp Pulse Resp BP Pulse Ox 98.1 F 83 18 135/61 96 03/25/19 13:33 03/25/19 19:44 03/25/19 19:44 03/25/19 19:44 03/25/19 19:44 - Physical Exam GENERAL: Awake, alert, and oriented to person/place/time, in no acute distress_ HEAD: No signs of trauma, normocephalic, atraumatic. No bruising. No racoon's eyes or vyas signs. EYES: PERRLA, EOMI, sclera anicteric, conjunctiva clear_ ENT: Hearing grossly normal, nares patent, oropharynx clear without exudates. No uvular deviation. Moist mucosa_ NECK: Normal ROM, supple, no lymphadenopathy, JVD, or masses_ LUNGS: On 2L NC. No distress, speaks in full sentences, clear to auscultation bilaterally _ HEART: Regular rate and rhythm, normal S1 and S2, no murmurs appreciated, peripheral pulses normal and equal bilaterally._ ABDOMEN: Soft, nontender, normoactive bowel sounds. No guarding, no rebound. No masses. G-tube in place. EXTREMITIES: Normal inspection, Normal range of motion, no edema. No clubbing or cyanosis_ NEUROLOGICAL: Cranial nerves II through XII grossly intact. Normal speech, normal gait, no focal sensorimotor deficits _ SKIN: Warm, Dry, normal turgor, no rashes or lesions noted_ ED Treatment Course - LABORATORY CBC & Chemistry Diagram: 03/25/19 14:34 03/25/19 14:34 - ADDITIONAL ORDERS Additional order review: Laboratory Results 03/25/19 03/25/19 16:00 14:34 Sodium 140 Potassium 4.1 Chloride 102 Carbon Dioxide 33 H Anion Gap 5 L BUN 28.9 H Creatinine 1.0 Est GFR (CKD-EPI)AfAm 86.76 Est GFR (CKD-EPI)NonAf 74.86 Random Glucose 113 H Calcium 9.0 Total Bilirubin 0.6 AST 15 ALT 16 Alkaline Phosphatase 84 Creatine Kinase 54 Troponin I < 0.02 Total Protein 7.2 Albumin 3.4 Urine Color Yellow Urine Appearance Turbid Urine pH 8.5 H Ur Specific [place] 1.018 Urine Protein Trace Urine Glucose (UA) Negative Urine Ketones Negative Urine Blood Negative Urine Nitrite Negative Urine Bilirubin Negative Urine Urobilinogen 0.2 Ur Leukocyte Esterase Negative 03/25/19 14:34 RBC 4.05 MCV 89.2 MCHC 33.8 RDW 13.8 MPV 8.9 Neutrophils % 91.5 H D Lymphocytes % 4.5 L D Monocytes % 3.7 L Eosinophils % 0.1 D Basophils % 0.2 - RADIOLOGY Radiology Studies Ordered: Category Date Time Status CERVICAL SPINE CT W/O CONTR [CT] Stat CT Scan 03/25/19 14:[address] WITHOUT CONTRAST [CT] Stat CT Scan 03/25/19 14:14 Completed CHEST X-RAY PORTABLE* [RAD] Stat Radiology 03/25/19 14:15 Completed Medical Decision Making - Medical Decision Making 03/25/19 14:13 73M presenting s/p syncopal episode and subsequent fall and head injury. -cbc, cmp -cxr, ekg, trop -ua -ct head/neck 03/25/19 14:14 EKG shows NSR, 85 bpm, no ST elevation/depression, no axis deviation, Qtc 456. 03/25/19 14:29 Pt reassessed. Able to ambulate but with vertigo. Labile BP, 95/55 on initial exam, 155/85 on reeval. 03/25/19 17:54 CT head and neck show no acute intracranial pathology and no fracture. CXR shows some atelectic changes in right mid/lower lung field otherwise no pneumothorax or consolidation. Labs reviewed. Laboratory Last Values WBC 10.3 K/mm3 (4.0-10.0) H 03/25/19 14:34 RBC 4.05 M/mm3 (4.00-5.60) 03/25/19 14:34 Hgb 12.2 GM/dL (11.7-16.9) 03/25/19 14:34 Hct 36.1 % (35.4-49) 03/25/19 14:34 MCV 89.2 fl (80-96) 03/25/19 14:34 MCH 30.1 pg (25.7-33.7) 03/25/19 14:34 MCHC 33.8 g/dl (32.0-35.9) 03/25/19 14:34 RDW 13.8 % (11.9-15.9) 03/25/19 14:34 Plt Count 192 K/MM3 (134-434) D 03/25/19 14:34 MPV 8.9 fl (7.5-11.1) 03/25/19 14:34 Absolute Neuts (auto) 9.4 K/mm3 (1.5-8.0) H 03/25/19 14:34 Neutrophils % 91.5 % (42.8-82.8) H D 03/25/19 14:34 Neutrophils % (Manual) 92.9 % (42.8-82.8) H 03/25/19 14:34 Band Neutrophils % 0.0 % 03/25/19 14:34 Lymphocytes % 4.5 % (8-40) L D 03/25/19 14:34 Lymphocytes % (Manual) 2.0 % (8-40) L 03/25/19 14:34 Monocytes % 3.7 % (3.8-10.2) L 03/25/19 14:34 Monocytes % (Manual) 3 % (3.8-10.2) L 03/25/19 14:34 Eosinophils % 0.1 % (0-4.5) D 03/25/19 14:34 Eosinophils % (Manual) 0.0 % (0-4.5) 03/25/19 14:34 Basophils % 0.2 % (0-2.0) 03/25/19 14:34 Basophils % (Manual) 0.0 % (0-2.0) 03/25/19 14:34 Myelocytes % (Man) 0 % (0-2) 03/25/19 14:34 Promyelocytes % (Man) 0 % (0-2) 03/25/19 14:34 Blast Cells % (Manual) 0 % (0-0) 03/25/19 14:34 Nucleated RBC % 0 % (0-0) 03/25/19 14:34 Metamyelocytes 0 % (0-2) 03/25/19 14:34 Hypochromia 1+ 03/25/19 14:34 Platelet Estimate Normal 03/25/19 14:34 Polychromasia 0 03/25/19 14:34 Poikilocytosis 0 03/25/19 14:34 Anisocytosis 3+ 03/25/19 14:34 Microcytosis 1+ 03/25/19 14:34 Macrocytosis 1+ 03/25/19 14:34 Ovalocytes 1+ 03/25/19 14:34 Sodium 140 mmol/L (136-145) 03/25/19 14:34 Potassium 4.1 mmol/L (3.5-5.1) 03/25/19 14:34 Chloride 102 mmol/L (98-107) 03/25/19 14:34 Carbon Dioxide 33 mmol/L (21-32) H 03/25/19 14:34 Anion Gap 5 MMOL/L (8-16) L 03/25/19 14:34 BUN 28.9 mg/dL (7-18) H 03/25/19 14:34 Creatinine 1.0 mg/dL (0.55-1.3) 03/25/19 14:34 Est GFR (CKD-EPI)AfAm 86.76 03/25/19 14:34 Est GFR (CKD-EPI)NonAf 74.86 03/25/19 14:34 Random Glucose 113 mg/dL (74-106) H 03/25/19 14:34 Calcium 9.0 mg/dL (8.5-10.1) 03/25/19 14:34 Total Bilirubin 0.6 mg/dL (0.2-1) 03/25/19 14:34 AST 15 U/L (15-37) 03/25/19 14:34 ALT 16 U/L (13-61) 03/25/19 14:34 Alkaline Phosphatase 84 U/L (45-117) 03/25/19 14:34 Creatine Kinase 54 U/L (26-308) 03/25/19 14:34 Troponin I < 0.02 ng/ml (0.00-0.05) 03/25/19 14:34 Total Protein 7.2 g/dl (6.4-8.2) 03/25/19 14:34 Albumin 3.4 g/dl (3.4-5.0) 03/25/19 14:34 Urine Color Yellow 03/25/19 16:00 Urine Appearance Turbid 03/25/19 16:00 Urine pH 8.5 (5.0-8.0) H 03/25/19 16:00 Ur Specific [place] 1.018 (1.010-1.035) 03/25/19 16:00 Urine Protein Trace (NEGATIVE) 03/25/19 16:00 Urine Glucose (UA) Negative (NEGATIVE) 03/25/19 16:00 Urine Ketones Negative (NEGATIVE) 03/25/19 16:00 Urine Blood Negative (NEGATIVE) 03/25/19 16:00 Urine Nitrite Negative (NEGATIVE) 03/25/19 16:00 Urine Bilirubin Negative (NEGATIVE) 03/25/19 16:00 Urine Urobilinogen 0.2 mg/dL (0.2-1.0) 03/25/19 16:00 Ur Leukocyte Esterase Negative (NEGATIVE) 03/25/19 16:[address] Murillo. Discharge - Discharge Information Problems reviewed: Yes Clinical Impression/Diagnosis: Syncope Qualifiers: Syncope type: unspecified Qualified Code(s): R55 - Syncope and collapse Condition: Stable - Admission Yes - Follow up/Referral - Patient Discharge Instructions - Post Discharge Activity
[2019-03-25 15:03] LABS: BASO % 0.2 % (0-2.0); EOS % 0.1 % (0-4.5); HEMATOCRIT 36.1 % (35.4-49); HEMOGLOBIN 12.2 GM/dL (11.7-16.9); LYMPH % 4.5 % (8-40); MCH 30.1 pg (25.7-33.7); MCHC 33.8 g/dl (32.0-35.9); MEAN CELL VOLUME 89.2 fl (80-96); MEAN PLT VOLUME 8.9 fl (7.5-11.1); MONO % 3.7 % (3.8-10.2); NEUT % 91.5 % (42.8-82.8); PLATELET COUNT 192 K/MM3 (134-434); RBC 4.05 M/mm3 (4.00-5.60); RDW 13.8 % (11.9-15.9); WHITE BLOOD COUNT 10.3 K/mm3 (4.0-10.0)
[2019-03-25 15:48] LABS: ALBUMIN 3.4 g/dl (3.4-5.0); ALK PHOS 84 U/L (45-117); ANION GAP 5 MMOL/L (8-16); BILIRUBIN,TOTAL 0.6 mg/dL (0.2-1); BLOOD UREA NITROGEN 28.9 mg/dL (7-18); CHLORIDE 102 mmol/L (98-107); CO2 33 mmol/L (21-32); GLUCOSE,RANDOM 113 mg/dL (74-106); POTASSIUM 4.1 mmol/L (3.5-5.1); SGOT/AST 15 U/L (15-37); SGPT/ALT 16 U/L (13-61); SODIUM 140 mmol/L (136-145); TOT PROT 7.2 g/dl (6.4-8.2)
[2019-03-25 16:41] LABS: ANISOCYTOSIS 3+; MACROCYTOSIS 1+; OVALOCYTE 1+; PLATELET ESTIMATE NORMAL
[2019-03-25 16:58] LABS: PH,URINE 8.5 (5.0-8.0); URINE APPEARANCE TURBID; URINE BILIRUBIN NEGATIVE (NEGATIVE); URINE COLOR YELLOW; URINE GLUCOSE (UA) NEGATIVE (NEGATIVE); URINE KETONE NEGATIVE (NEGATIVE); URINE LEUK ESTERASE NEGATIVE (NEGATIVE); URINE NITRITE NEGATIVE (NEGATIVE); URINE PROTEIN TRACE (NEGATIVE); URINE UROBILINOGEN 0.2 mg/dL (0.2-1.0)
--- NOTE | 2019-03-25 19:44 | HP ---
CHIEF COMPLAINT: fell to the floor hitting his head PCP:Dr. Murillo [employer] Specialist: Dr. Maki Technical Publications Manager:Dr. Rhoda Dennis Neurologist: Dr. Rodriguez Oncologist: Dr. Qureshi at [facility] HISTORY OF PRESENT ILLNESS: 73 year old male with history of tongue and throat cancer treatment with chemotherapy and radiation therapy, follows with Oncology with Dr. Qureshi at [facility], has GT tube, currently cancer free, COPD, home oxygen dependent, hyperlipidemia, hypothyroidism, nonobstructive CAD, diastolic congestive heart failure, and orthostatic hypotension/dysautonomia secondary from radiation therapy who presents to the ER after a fall versus syncopal episode. Patient is unable to tell me if there was LOC. He reports he was going to the bathroom and he started to feel dizzy, grabbed the door and then he fell to the floor hitting the back side of his head. He reports he had fever of 103.3 this morning associated with chills. He reports he has had multiple prior syncopal episodes secondary to dysautonomia post radiation therapy. He denied chest pain or shortness of breath. Upon evaluation in the ER EKG with a normal sinus rhythm, troponin is negative. Head and CT spine is negative. UA negative. Labs notable for WBC 10.3, normal electrolytes, hgb/hct, and renal studies. Recent Travel: denies PAST MEDICAL HISTORY: throat and neck carcinoma nonobstructive CAD hyperlipidemia diastolic congestive heart failure COPD hypothyroidism PAST SURGICAL HISTORY: denies Social History: Smoking:no Alcohol:no Drugs: no Allergies tamsulosin HCl [From Flomax] Adverse Reaction (Intermediate, Verified 03/25/19 13:32) dizziness HOME MEDICATIONS: Home Medications Medication Instructions Recorded Aspirin [ASA -] 81 mg PO DAILY 10/20/15 Cholecalciferol (Vitamin D3) 2,000 unit PO DAILY 10/20/15 [Vitamin D3] Cyanocobalamin (Vitamin B-12) 1,000 mcg PO DAILY 10/20/15 [Vitamin B-12] Rosuvastatin Calcium [Crestor] 10 mg PO HS 10/20/15 Gabapentin Liquid [Neurontin Oral 100 mg GT TID #120 ml 02/19/18 Liquid -] Albuterol 0.083% Nebulizer Malissa 1 amp NEB RQID PRN amp 12/22/18 [Ventolin 0.083% Nebulizer Soln -] Amlodipine Besylate [Norvasc -] 2.5 mg PEG DAILY tablet 12/22/18 Lidocaine 5% Patch [Lidoderm -] 1 patch TP DAILY #30 patch 12/22/18 Levothyroxine [Synthroid -] 125 mcg PO DAILY@0700 tablet 02/12/19 Sulfamethoxazole/Trimethoprim 20 ml PO BID #560 ml 02/12/19 [Bactrim Oral Suspension -] Cefuroxime Axetil [Ceftin -] 500 mg PO Q12H #14 tablet 03/01/19 REVIEW OF SYSTEMS CONSTITUTIONAL: Absent: fever, chills, diaphoresis, generalized weakness, malaise, loss of appetite, weight change HEENT: Absent: rhinorrhea, nasal congestion, throat pain, throat swelling, difficulty swallowing, mouth swelling, ear pain, eye pain, visual changes CARDIOVASCULAR: Absent: chest pain, syncopy, palpitations, irregular heart rate, lightheadedness , peripheral edema, +dizziness RESPIRATORY: Absent: cough, shortness of breath, dyspnea with exertion, orthopnea, wheezing, stridor, hemoptysis GASTROINTESTINAL: Absent: abdominal pain, abdominal distension, nausea, vomiting, diarrhea, constipation, melena, hematochezia GENITOURINARY: Absent: dysuria, frequency, urgency, hesitancy, hematuria, flank pain, genital pain MUSCULOSKELETAL: Absent: myalgia, arthralgia, joint swelling, back pain, neck pain SKIN: Absent: rash, itching, pallor HEMATOLOGIC/IMMUNOLOGIC: Absent: easy bleeding, easy bruising, lymphadenopathy, frequent infections ENDOCRINE: Absent: unexplained weight gain, unexplained weight loss, heat intolerance, cold intolerance NEUROLOGIC: Absent: headache, focal weakness or paresthesias, dizziness, unsteady gait, seizure, mental status changes, bladder or bowel incontinence PSYCHIATRIC: Absent: anxiety, depression, suicidal or homicidal ideation, hallucinations. PHYSICAL EXAMINATION Vital Signs - 24 hr 03/25/19 03/25/19 13:16 13:33 Temperature 98.1 F Pulse Rate 86 Respiratory 20 Rate Blood Pressure 154/82 O2 Sat by Pulse 94 L 94 L Oximetry (%) GENERAL: awake alert and fully oriented no acute distress HEAD: normal EYES: pupils equal round and reactive to light EARS, NOSE, THROAT: ears normal nares patent NECK: normal range of motion LUNGS: breath sounds clear to auscultation bilaterally no wheeze no rales nonlabored breathing effort no use of accessory muscles HEART: regular rate and rhythm normal S1 and S2 without murmur ABDOMEN: soft nontender not distended normoactive bowel sounds GT tube in place with no odor drainage or erythema MUSCULOSKELETAL: normal range of motion UPPER EXTREMITIES: 2+ pulses warm well-perfused LOWER EXTREMITIES: 2+ pulses warm well-perfused no pitting edema NEUROLOGICAL: normal speech no facial grimace no slurred speech PSYCHIATRIC: cooperative good eye contact appropriate mood and affect SKIN: warm dry normal turgor no rashes or lesions Laboratory Results - last 24 hr 03/25/19 03/25/19 03/25/19 14:34 14:34 16:00 WBC 10.3 H RBC 4.05 Hgb 12.2 Hct 36.1 MCV 89.2 MCH 30.1 MCHC 33.8 RDW 13.8 Plt Count 192 D MPV 8.9 Absolute Neuts (auto) 9.4 H Neutrophils % 91.5 H D Neutrophils % (Manual) 92.9 H Band Neutrophils % 0.0 Lymphocytes % 4.5 L D Lymphocytes % (Manual) 2.0 L Monocytes % 3.7 L Monocytes % (Manual) 3 L Eosinophils % 0.1 D Eosinophils % (Manual) 0.0 Basophils % 0.2 Basophils % (Manual) 0.0 Myelocytes % (Man) 0 Promyelocytes % (Man) 0 Blast Cells % (Manual) 0 Nucleated RBC % 0 Metamyelocytes 0 Hypochromia 1+ Platelet Estimate Normal Polychromasia 0 Poikilocytosis 0 Anisocytosis 3+ Microcytosis 1+ Macrocytosis 1+ Ovalocytes 1+ Sodium 140 Potassium 4.1 Chloride 102 Carbon Dioxide 33 H Anion Gap 5 L BUN 28.9 H Creatinine 1.0 Est GFR (CKD-EPI)AfAm 86.76 Est GFR (CKD-EPI)NonAf 74.86 Random Glucose 113 H Calcium 9.0 Total Bilirubin 0.6 AST 15 ALT 16 Alkaline Phosphatase 84 Creatine Kinase 54 Troponin I < 0.02 Total Protein 7.2 Albumin 3.4 Urine Color Yellow Urine Appearance Turbid Urine pH 8.5 H Ur Specific [place] 1.018 Urine Protein Trace Urine Glucose (UA) Negative Urine Ketones Negative Urine Blood Negative Urine Nitrite Negative Urine Bilirubin Negative Urine Urobilinogen 0.2 Ur Leukocyte Esterase Negative ASSESSMENT/PLAN: Mr. Avila is a 73 year old male with history of tongue and throat cancer treated with chemotherapy and radiation therapy, follows with Oncology with Dr. Qureshi at [facility], has GT tube, and currently cancer free, COPD, home oxygen dependent, nonobstructive CAD, diastolic congestive heart failure, and orthostatic hypotension/dysautonomia who presented with a fall versus recurrent syncopal episode. ER workup is negative. He reported having a fever of 103.3 and chills. Admit to Observation/Telemetry 1. Syncopy (hx orthostatic hypotension/dysautonomia) Currently asymptomatic, blood pressure normal Workup-EKG normal sinus rhythm, troponin negative, hHead and CT spine negative , neurological exam unremarkable CXR with no infiltrate or fluid UA negative, electroltyes, hgb/hct and renal studies normal --Will hold amlodipine,no evidence of hypotension --Start IVF NS @75cc/hr --Check echocardiogram --Check D-Dimer --Continue to trend troponins --Cardiology consulted-Dr. Asa Dennis --Check urine culture and blood cultures --ID consulted- Dr. Partida (WBC 10,300, had fever of 103.3 and chills, currently afebrile, on ceftin and bactrim on home regimen) --Check US carotid doppler --Neuro checks q6hr --Neurology consulted- Dr. Rodriguez 2.Nonobstructive CAD Troponin negative, EKG w/ no signs of acute ischemia --Continue with aspirin and statin therapy 3.Diastolic Congestive Heart Failure He is euvolemic on clinical exam --Echocardiogram ordered to evaluate LV function and exclude 4. Hyperlipidemia LFT's normal --Continue with crestor 5. Hypothyroidism --Check TSH --Continue with synthroid 6. COPD no acute exacerbation Albuterol nebulizers prn --Continue with oxygen therapy DVT Prophylaxsis OOB with assistance TEDS, SCD's and lovenox 30mg BID FEN IVF NS at 75cc/hr Jevity 1.5 bolus feeds by GT tube RD consulted for Jevity feeds calculation Visit type - Emergency Visit Emergency Visit: Yes ED Registration Date: 03/25/19 Care time: The patient presented to the Emergency Department on the above date and was hospitalized for further evaluation of their emergent condition. - New Patient This patient is new to me today: Yes Date on this admission: 03/25/19 - Critical Care Critical Care patient: No
[2019-03-25] MEDS ORDERED: SODIUM CHLORIDE 1,000 ML IV SCH (19:45)
[2019-03-25] MEDS ORDERED: ALBUTEROL SO4 0.083% IH SOL 2.5 MG/3 ML VIAL.NEB. NEB PRN (20:26)
[2019-03-25] MEDS: GABAPENTIN 250 MG/5 ML ORAL SOLUTION, 470 ML BOTTLE GT SCH (23:06)
[2019-03-25] MEDS: ROSUVASTATIN CA 10 MG TABLET (FP) PO SCH (23:06)
[2019-03-25] MEDS: LIDOCAINE PATCH REMOVAL MC SCH (23:07)
[2019-03-25] MEDS: ENOXAPARIN NA (PORCINE) 30 MG/0.3 ML DISP.SYRIN SQ SCH (23:07)
[2019-03-26] MEDS ORDERED: amLODIPine BESYLATE 2.5 MG TABLET (FP) PEG ONE (00:06)
[2019-03-26] MEDS ORDERED: NITROGLYCERIN 2% OINTMENT - 1GM PACKET TD ONE (02:16)
[2019-03-26] MEDS ORDERED: LABETALOL HCL 5 MG/1 ML (100MG/20 ML VIAL) IVPUSH ONE (02:51)
[2019-03-26] MEDS: LEVOTHYROXINE NA 125 MCG TABLET (FP) PO SCH (06:13)
[2019-03-26] MEDS: GABAPENTIN 250 MG/5 ML ORAL SOLUTION, 470 ML BOTTLE GT SCH ×3 (06:13→22:37)
[2019-03-26 06:47] LABS: BASO % 0.1 % (0-2.0); EOS % 0.2 % (0-4.5); HEMATOCRIT 33.7 % (35.4-49); HEMOGLOBIN 11.6 GM/dL (11.7-16.9); LYMPH % 4.7 % (8-40); MCH 30.5 pg (25.7-33.7); MCHC 34.5 g/dl (32.0-35.9); MEAN CELL VOLUME 88.5 fl (80-96); MEAN PLT VOLUME 9.3 fl (7.5-11.1); MONO % 3.8 % (3.8-10.2); NEUT % 91.2 % (42.8-82.8); PLATELET COUNT 166 K/MM3 (134-434); RBC 3.81 M/mm3 (4.00-5.60); RDW 13.9 % (11.9-15.9); WHITE BLOOD COUNT 8.5 K/mm3 (4.0-10.0)
[2019-03-26] MEDS ORDERED: PT OWN MED DRAWER 7, Y5N ONE ×3 (06:48→22:30)
[2019-03-26] MEDS ORDERED: INSULIN (NOVOLOG) ASPART 100 UNITS/ML 10ML VIAL ONE (06:48)
[2019-03-26 07:21] LABS: BLOOD UREA NITROGEN 29.8 mg/dL (7-18); CALCIUM 9.1 mg/dL (8.5-10.1); CREATININE 0.8 mg/dL (0.55-1.3); MAGNESIUM 2.5 mg/dL (1.8-2.4); PHOSPHOROUS 2.8 mg/dL (2.5-4.9); POTASSIUM 3.7 mmol/L (3.5-5.1)
[2019-03-26 09:18] LABS: ANISOCYTOSIS 2+; MACROCYTOSIS 0; PLATELET ESTIMATE DECREASED
[2019-03-26] MEDS: amLODIPine BESYLATE 2.5 MG TABLET (FP) PEG SCH (09:25)
--- NOTE | 2019-03-26 10:12 | CON.CARD ---
Consult Consult Specialty:: Cardiology Referred by:: THADDEUS Lerma Reason for Consultation:: Labile BP, chronic orthostasis, recurrent syncope - History of Present Illness Chief Complaint: Recurrent syncope History of Present Illness: Patient is a 73 year old male with underlying history of CAD, nonobstructive on coronary angiography, angina pectoris, diastolic LV dysfunction with clinical class 0 NYHA classification LV failure, HTN, hypercholesterolemia, hypothyroidism, throat CA post chemotherapy and radiation therapy 2011, home O2 dependent COPD (2L0 and profound autonomic dysfunction with recurrent syncope and orthostatic hypotension, aspiration pneumonia and post PEG insertion who presents with recurrent syncope twice, subjective fevers. Reports that he was walking to the bathroom (not on the toilet yet) when he started passing out. He reached for the door frame but was not able to hold on and fell onto the ground and hit the back of his head. Denies dizziness or heart palpitations prior to fall. Denies change in vision. Denies chest pain/shortness of breath. Denies abdominal pain. He was unable to get up, even with the help of his , prompting them to call EMS. He notes various syncopal episodes in the past. He notes being started on Northera which has lowered his syncope frequency. Last seen in office 02/17/2019. - History Source History Provided By: Patient Limitations to Obtaining History: No Limitations - Past Medical History HAND CARVER: Yes: Other (autonomic dysfunction). 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[employer] , 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 History of Recent Travel: No Home Medications - Allergies Allergies/Adverse Reactions: Allergies Allergy/AdvReac Type Severity Reaction Status Date / Time tamsulosin HCl [From Flomax] Allergy Intermediate dizziness Verified 03/25/19 20 :33 - Home Medications Home Medications: Ambulatory Orders Aspirin [ASA -] 81 mg PO DAILY 10/20/15 Cholecalciferol (Vitamin D3) [Vitamin D3] 2,000 unit PO DAILY 10/20/15 Cyanocobalamin (Vitamin B-12) [Vitamin B-12] 1,000 mcg PO DAILY 10/20/15 Rosuvastatin Calcium [Crestor] 10 mg PO HS 10/20/15 Gabapentin Liquid [Neurontin Oral Liquid -] 100 mg GT TID #120 ml 02/19/18 Albuterol 0.083% Nebulizer Malissa [Ventolin 0.083% Nebulizer Soln -] 1 amp NEB RQID PRN amp 12/22/18 Amlodipine Besylate [Norvasc -] 2.5 mg PEG DAILY tablet 12/22/18 Lidocaine 5% Patch [Lidoderm -] 1 patch TP DAILY #30 patch 12/22/18 Levothyroxine [Synthroid -] 125 mcg PO DAILY@0700 tablet 02/12/19 Sulfamethoxazole/Trimethoprim [Bactrim Oral Suspension -] 20 ml PO BID #560 ml 02/12/19 Cefuroxime Axetil [Ceftin -] 500 mg PO Q12H #14 tablet 03/01/19 Review of Systems - Review of Systems Constitutional: reports: Fever Neurological: reports: Syncope Vital Signs: Vital Signs Temperature 98 F 03/26/19 09:36 Pulse Rate 80 03/26/19 09:36 Respiratory Rate 18 03/26/19 09:36 Blood Pressure 199/113 H 03/26/19 09:36 O2 Sat by Pulse Oximetry (%) 99 03/25/19 22:31 Constitutional: Yes: No Distress, Calm Neck: Yes: Supple Respiratory: Yes: Regular, CTA Bilaterally Gastrointestinal: Yes: Normal Bowel Sounds, Soft Cardiovascular: Yes: Regular Rate and Rhythm JVD: No Carotid Bruit: No Heart Sounds: Yes: S1, S2 Edema: No - Other Data Labs, Other Data: CBC, BMP 03/26/19 05:15 03/26/19 05:15 Troponin, BNP 03/25/19 03/26/19 14:34 00:10 Troponin I < 0.02 < 0.02 Troponin, BNP 03/25/19 03/26/19 14:34 00:10 Troponin I < 0.02 < 0.02 NSR @ [address]-T changes similar to previous Echo: Pending Ejection Fraction %: LVEF > or = 40 % Imaging - Results Chest X-ray: Report Reviewed (CT head and neck show no acute intracranial pathology and no fracture. CXR shows some atelectic changes in right mid/lower lung field otherwise no pneumothorax or consolidation.) Ultrasound: Report Reviewed (No sig stenosis) Problem List - Problems (1) Syncope Code(s): R55 - SYNCOPE AND COLLAPSE Qualifiers: Syncope type: unspecified Qualified Code(s): R55 - Syncope and collapse (2) Autonomic postural hypotension Code(s): I95.1 - ORTHOSTATIC HYPOTENSION (3) CAD (coronary artery disease) Code(s): I25.10 - ATHSCL HEART DISEASE OF [place] CORONARY ARTERY W/O ANG PCTRS Qualifiers: Coronary Disease-Associated Artery/Lesion type: [place] artery [place] vs. transplanted heart: [place] heart Associated angina: without angina Qualified Code(s): I25.10 - Atherosclerotic heart disease of [place] coronary artery without angina pectoris (4) COPD (chronic obstructive pulmonary disease) Code(s): J44.9 - CHRONIC OBSTRUCTIVE PULMONARY DISEASE, UNSPECIFIED Qualifiers: COPD type: unspecified COPD Qualified Code(s): J44.9 - Chronic obstructive pulmonary disease, unspecified (5) Dysautonomia orthostatic hypotension syndrome Code(s): G90.3 - MULTI-SYSTEM DEGENERATION OF THE AUTONOMIC NERVOUS SYSTEM (6) HLD (hyperlipidemia) Code(s): E78.5 - HYPERLIPIDEMIA, UNSPECIFIED Qualifiers: Hyperlipidemia type: pure hypercholesterolemia Qualified Code(s): E78.00 - Pure hypercholesterolemia, unspecified; E78.0 - Pure hypercholesterolemia (7) History of throat cancer Code(s): Z85.819 - PRSNL HX OF MALIG NEOPLM OF UNSP SITE LIP,ORAL CAV,& PHARYNX (8) Hypothyroid Code(s): E03.9 - HYPOTHYROIDISM, UNSPECIFIED Qualifiers: Hypothyroidism type: unspecified Qualified Code(s): E03.9 - Hypothyroidism , unspecified (9) Labile hypertension Code(s): I10 - ESSENTIAL (PRIMARY) HYPERTENSION (10) Orthostatic hypotension Code(s): I95.1 - ORTHOSTATIC HYPOTENSION Assessment/Plan 07/04/2017 Normal LV size and fxn LVEF 55-60%, normal RV size and fxn, mild LAE , mild AR 01/31/2016 Lexiscan Myoview: No ischemia, normal LVEF 67% 1. Recurrent syncope, orthostatic hypotension, profound autonomic dysfunction with post-concussive syndrome 2. Fevers and chills, h/o recurrent aspiration pneumonia with underlying COPD 3. HTN with labile BP 4. CAD (non-obstructive), angina pectoris 5. Diastolic dysfunction with class 0 NYHA classification heart failure 6. Hypercholesterolemia 7. Hypothyroidism 8. Head and neck CA s/p chemotherapy and radiation therapy 9. Post PEG 10. BPH PLAN: 1. May use Amlodipine 2.5 mg qd as needed if BP is severely high 2. Patient is on Northera 600 tid for orthostatic hypotension and autonomic dysfunction 3. Continue empiric antibiotic coverage per C&S, BD and O2 to keep SpO2 >90% 4. Continue Crestor 5 qhs, ASA 81 qd 5. Enteral feeds, aspiration precautions, DVT prophylaxis 6. F/u repeat echocardiogram, ruled out for UT 7. Thank you for consultative opportunity
[2019-03-26] MEDS: ENOXAPARIN NA (PORCINE) 30 MG/0.3 ML DISP.SYRIN SQ SCH ×2 (11:01→22:35)
[2019-03-26] MEDS: CHOLECALCIFEROL (VIT D3) 1,000 UNIT (25 MCG) TABLET PO SCH (11:01)
[2019-03-26] MEDS: ASPIRIN 81 MG CHEWABLE TABLETS PO SCH (11:02)
[2019-03-26] MEDS: LIDOCAINE 5% TOPICAL PATCH TP SCH (11:02)
[2019-03-26] MEDS: CYANOCOBALAMIN 1,000 MCG TABLET (FP) PO SCH (11:02)
[2019-03-26] MEDS ORDERED: MECLIZINE HCL 25 MG TABLET (FP) PO PRN (11:44)
--- NOTE | 2019-03-26 11:51 | PN ---
Progress Note, Physician Chief Complaint: AWAKE ROOM SPINNING PER PT WITH N/V - Current Medication List Current Medications: Active Medications Albuterol Sulfate (Ventolin 0.083% Nebulizer Soln -) 1 amp NEB Q6H PRN PRN Reason: Dyspnea Amlodipine Besylate (Norvasc -) 2.5 mg PEG DAILY [facility] Last Admin: 03/26/19 09:25 Dose: 2.5 mg Aspirin (Asa -) 81 mg PO DAILY [facility] Last Admin: 03/26/19 11:02 Dose: 81 mg Cholecalciferol (Vitamin D3 -) 2,000 unit PO DAILY [facility] Last Admin: 03/26/19 11:01 Dose: 2,000 unit Cyanocobalamin (Vitamin B12 -) 1,000 mcg PO DAILY [facility] Last Admin: 03/26/19 11:02 Dose: 1,000 mcg Enoxaparin Sodium (Lovenox -) 30 mg SQ BID [facility] Last Admin: 03/26/19 11:01 Dose: 30 mg Gabapentin (Neurontin Oral Liquid -) 100 mg GT TID [facility] Last Admin: 03/26/19 06:13 Dose: 100 mg Sodium Chloride (Normal Saline -) 1,000 mls @ 75 mls/hr IV ASDIR [facility] Last Admin: 03/25/19 20:55 Dose: 75 mls/hr Levothyroxine Sodium (Synthroid -) 125 mcg PO DAILY@0700 [facility] Last Admin: 03/26/19 06:13 Dose: 125 mcg Lidocaine (Lidoderm Patch -) 1 patch TP DAILY [facility] Last Admin: 03/26/19 11:02 Dose: Not Given Meclizine HCl (Antivert -) 25 mg PO TID PRN PRN Reason: VERTIGO Miscellaneous (Lidoderm Patch Removal) 1 each MC DAILY@2200 [facility] Last Admin: 03/25/19 23:07 Dose: Not Given Rosuvastatin Calcium (Crestor -) 10 mg PO HS [facility] Last Admin: 03/25/19 23:06 Dose: 10 mg - Objective Vital Signs: Vital Signs Temperature 98 F 03/26/19 09:36 Pulse Rate 70 03/26/19 10:59 Respiratory Rate 18 03/26/19 09:36 Blood Pressure 122/84 03/26/19 10:59 O2 Sat by Pulse Oximetry (%) 99 03/25/19 22:31 Constitutional: Yes: Mild Distress Cardiovascular: Yes: Regular Rate and Rhythm Respiratory: Yes: WNL Gastrointestinal: Yes: Other Genitourinary: Yes: WNL Musculoskeletal: Yes: Muscle Weakness Extremities: Yes: Other Edema: No Peripheral Pulses WNL: Yes Integumentary: Yes: WNL Neurological: Yes: Weakness Labs: CBC, BMP 03/26/19 05:15 03/26/19 05:15 Problem List - Problems (1) Vertigo Code(s): R42 - DIZZINESS AND GIDDINESS (2) Syncope Code(s): R55 - SYNCOPE AND COLLAPSE Qualifiers: Syncope type: unspecified Qualified Code(s): R55 - Syncope and collapse (3) Acute prerenal azotemia Code(s): R79.89 - OTHER SPECIFIED ABNORMAL FINDINGS OF BLOOD CHEMISTRY (4) Aspiration pneumonia Code(s): J69.0 - PNEUMONITIS DUE TO INHALATION OF FOOD AND VOMIT Qualifiers: Aspiration pneumonia type: unspecified Laterality: bilateral Lung location: lower lobe of lung Qualified Code(s): J69.0 - Pneumonitis due to inhalation of food and vomit (5) Autonomic postural hypotension Code(s): I95.1 - ORTHOSTATIC HYPOTENSION (6) Dizziness Code(s): R42 - DIZZINESS AND GIDDINESS Assessment/Plan MECLIZINE STARTED ON TELE CARDIO CONSULT NEUROLOGY CONSULT IV FLUIDS MONITOR BUN/CREAT PT EVAL FALL RISKS
--- NOTE | 2019-03-26 12:13 | ECHO ---
Name: LAUREN ARGUELLO Exam:Adult Echocardiogram Study Date: 03/26/2019 08:07 AM Age: 73 yrs Reason For Study: syncopy Height: 72 in Weight: 194 lb BSA: 2.1 m2 MMode/2D Measurements & Calculations IVSd: 1.1 cm Ao root diam: 3.8 cm LVIDd: 6.0 cm LA dimension: 4.5 cm LVIDs: 3.6 cm ACS: 1.6 cm LVPWd: 0.97 cm IVSs: 1.3 cm LVPWs: 1.0 cm EDV(Teich): 180.6 ml ESV(Teich): 54.1 ml Doppler Measurements & Calculations MV E max martin: 72.1 cm/sec Ao V2 max: 174.9 cm/sec MV A max martin: 84.4 cm/sec Ao max P.2 mmHg MV E/A: 0.85 Ao V2 mean: 126.9 cm/sec Ao mean P.1 mmHg Ao V2 VTI: 38.9 cm AI P1/2t: 339.1 msec AI max martin: 483.7 cm/sec MR max martin: 533.6 cm/sec AI max P.6 mmHg MR max P.0 mmHg AI dec slope: 417.8 cm/sec2 TR max martin: 302.2 cm/sec PI end-d martin: 136.4 cm/sec TR max P.6 mmHg Med Peak E' Martin: 2.7 cm/sec Med E/e': 26.3 Lat Peak E' Martin: 4.8 cm/sec Lat E/e': 14.9 Left Ventricle Left ventricular systolic function is normal. Ejection Fraction = 55-60%. Right Ventricle The right ventricle is normal in size and function. Atria The left atrium is moderately dilated. Mitral Valve The mitral valve is normal in structure and function. There is no mitral valve stenosis. There is mil d mitral regurgitation. Tricuspid Valve The tricuspid valve is normal in structure and function. There is mild tricuspid regurgitation. Right ventricular systolic pressure is elevated at 40-50mmHg. Aortic Valve There is mild aortic sclerosis.;. No hemodynamically significant valvular aortic stenosis. Mild to mo derate aortic regurgitation. Pulmonic Valve The pulmonic valve is not well seen, but is grossly normal. There is no pulmonic valvular stenosis. M ild pulmonic valvular regurgitation. Great Vessels The aortic root is mildly dilated (3.9cm); the ascending aorta is moderately dilated (4.5cm). Pericardium/Pleura There is no pericardial effusion. Interpretation Summary Left ventricular systolic function is normal. Ejection Fraction = 55-60%. The left atrium is moderately dilated. There is mild mitral regurgitation. There is mild tricuspid regurgitation. Right ventricular systolic pressure is elevated at 40-50mmHg. There is mild aortic sclerosis.; Mild to moderate aortic regurgitation. The aortic root is mildly dilated (3.9cm); the ascending aorta is moderately dilated (4.5cm). There is no pericardial effusion. MD Singleton *Debbie 03/26/2019 12:13 PM
--- NOTE | 2019-03-26 12:47 | PN ---
Progress Note (short form) - Note Progress Note: ID CONSULT DICTATED ADMITTED WITH SYNCOPE REPORTS FEVER 103+ AT HOME NO KNOWN ILL CONTACTS HX + MRSA/ PSEUDOMONAS IN SPUTUM AWAIT BC INFLUENZA SWAB EMPIRIC CEPEPIME + STAT DOSE VANCOMYCIN
--- NOTE | 2019-03-26 13:43 | CONS ---
DATE OF CONSULTATION: DATE OF DICTATION: 03/26/2019 REASON FOR CONSULTATION: Patient evaluated for fever. HISTORY OF PRESENT ILLNESS: The patient is a 73-year-old, male with a history of head and neck CA, status post chemotherapy and radiation therapy in 2011, history of autonomic orthostatic hypotension, evaluated for fever. He was admitted to the hospital, on March 25, 2019, after syncopal episodes at home. He was taken to the emergency room, where he was evaluated. A CAT scan of the head was negative for acute pathology. He was noted to be hypertensive. His hospital course has been complicated by elevated blood pressure. The patient reports that subsequent to his syncopal episodes, he had a fever to 103. He has no focal complaint, at this time. He complains of vertigo. He denies any recent febrile illness or ill contacts and no recent pulmonary symptoms. Denies chest pain, shortness of breath, cough or sputum production. No vomiting. Denies diarrhea. No dysuria or hematuria. PAST MEDICAL HISTORY: Positive for pharyngeal CA, status post chemotherapy and radiation; autonomic orthostatic hypotension; COPD; hyperlipidemia; hypertension; hypothyroidism; diabetes mellitus. ALLERGIES: TAMSULOSIN. MEDICATIONS: Include albuterol, amlodipine, aspirin, Neurontin, labetalol, Synthroid, lidocaine, meclizine, Crestor. SOCIAL HISTORY: Lives at home with his significant other. No tobacco or alcohol use. SYSTEMS REVIEW: Neurologic: As per HPI. Cardiac: As per HPI. Respiratory: Negative cough or sputum production. Gastrointestinal: Positive for feeding gastrostomy. Genitourinary: Negative for urinary tract infection. LABORATORY DATA: White count 10.3, hematocrit 33.7, platelets 166. Creatinine 0.8. Urinalysis: Negative leukocyte esterase. Blood and urine cultures pending. IMAGING: Chest x-ray negative for acute infiltrate. PHYSICAL EXAMINATION: General: On physical examination, he is awake. He is in moderate distress, secondary to vertigo. Vital Signs: Temperature 98, blood pressure 122/84, pulse 70 regular, respirations 18 per minute. Eyes: Sclerae are anicteric. Heart: Heart sounds S1, S2. Lungs: Clear bilaterally. No rhonchi, rales or wheezing. Abdomen: Soft and nontender. Feeding gastrostomy tube site: No erythema or drainage. Extremities: Negative for edema. Negative Homans sign. IMPRESSION: A 73-year-old, male with a history of pharyngeal CA, history of autonomic orthostatic hypotension, admitted, status post syncopal episode. Patient reports fever to 103 at home. No known ill contacts. Will obtain influenza swab. Await sepsis workup. Empiric antibiotic coverage with cefepime and stat-dose vancomycin. Previous sputum cultures in the past have grown MRSA and pseudomonas. Aspiration precautions. Will follow. Thank you for the kind referral. ANDREW TURNER M.D. AUGIE/[id number]
--- NOTE | 2019-03-26 13:49 | EKG ---
Test Reason : Blood Pressure : / mmHG Vent. Rate : 085 BPM Atrial Rate : 085 BPM P-R Int : 174 ms QRS Dur : 084 ms QT Int : 384 ms P-R-T Axes : 038 -11 049 degrees QTc Int : 456 ms POOR DATA QUALITY, INTERPRETATION MAY BE ADVERSELY AFFECTED NORMAL SINUS RHYTHM WHEN COMPARED WITH ECG OF 01-MAR-2019 15:48, NONSPECIFIC T WAVE ABNORMALITY NOW EVIDENT IN LATERAL LEADS Confirmed by ANDREW LAI MD ([id number]) on 03/26/2019 1:49:16 PM Referred By: Confirmed By:ANDREW LAI MD
[2019-03-26 16:58] VITALS: BMI 25.7
[2019-03-26] MEDS: ROSUVASTATIN CA 10 MG TABLET (FP) PO SCH (22:35)
[2019-03-26] MEDS: LIDOCAINE PATCH REMOVAL MC SCH (22:37)
--- NOTE | 2019-03-27 00:10 | PDOC ---
Documentation entered by Maira Turner SCRIBE, acting as scribe for Debbie Ma MD. Debbie Ma MD: This documentation has been prepared by the Yue michael Brenda, SCRIBE, under my direction and personally reviewed by me in its entirety. I confirm that the documentation accurately reflects all work, treatment, procedures, and medical decision making performed by me. Attending Attestation - Resident Resident Name: Beto Mariscal - ED Attending Attestation I have performed the following: I have examined & evaluated the patient, The case was reviewed & discussed with the resident, I agree w/resident's findings & plan, Exceptions are as noted - HPI HPI: 03/25/19 14:35 The patient is a 73 year old male with a significnat PMH of Pharyngeal cancer (s /p chemotherapy and radiation in 2011), COPD (2 liters O2), Autonomic orthostatic hypotension, hyperlipodemia, hypothyroidism, Diabetes Mellitus and a G-Tube in place who presents to the Emergency Department for 2 syncopal episodes this morning. As per patient, he was walking towards the bathroom around 7:00am, at which time he passed out. Patient reports he tried reaching for the door frame however was unable to hold on and fell, hitting the back of his head. Patient reports then having another syncopal episode around 11:00am, however this time he was unable to get up, even with the help of his , prompting them to call EMS. He notes various syncopal episodes in the past. He notes being started on Northera which has dropped the frequency of his syncopal episodes. The patient denies chest pain, shortness of breath, palpitations. Denies headache, focal weakness/numbness and dizziness. Denies fever, chills, nausea, vomiting, diarrhea and constipation. Denies dysuria, frequency, urgency and hematuria. Allergies: Tamsulosin HCl PCP: Fern Murillo - Physicial Exam PE: 03/25/19 14:34 Agree with resident exam - Medical Decision Making 73yo M MMP including autonomic dysfunction presents to the ED with 2 syncopal episodes today, with head trauma and inability to stand after second episode. Pt reports compliance with northera, no recent changes in dose. Plan for trauma imaging, labs, admission
[2019-03-27] MEDS: LEVOTHYROXINE NA 125 MCG TABLET (FP) PO SCH (06:39)
[2019-03-27] MEDS: GABAPENTIN 250 MG/5 ML ORAL SOLUTION, 470 ML BOTTLE GT SCH ×3 (06:39→23:14)
[2019-03-27 07:53] LABS: HEMATOCRIT 33.5 % (35.4-49); HEMOGLOBIN 11.4 GM/dL (11.7-16.9); MCH 30.1 pg (25.7-33.7); MCHC 33.9 g/dl (32.0-35.9); MEAN CELL VOLUME 88.7 fl (80-96); MEAN PLT VOLUME 9.3 fl (7.5-11.1); PLATELET COUNT 164 K/MM3 (134-434); RBC 3.78 M/mm3 (4.00-5.60); RDW 13.9 % (11.9-15.9); WHITE BLOOD COUNT 4.8 K/mm3 (4.0-10.0)
[2019-03-27 08:22] LABS: BLOOD UREA NITROGEN 24.9 mg/dL (7-18); CALCIUM 9.2 mg/dL (8.5-10.1); CREATININE 0.7 mg/dL (0.55-1.3); POTASSIUM 3.4 mmol/L (3.5-5.1)
--- NOTE | 2019-03-27 10:10 | PN ---
Progress Note, Physician Chief Complaint: Pt lying in bed; A&Ox3; asymptomatic. History of Present Illness: Patient is a 73 year old male with underlying history of CAD, nonobstructive on coronary angiography, angina pectoris, diastolic LV dysfunction with clinical class 0 NYHA classification LV failure, HTN, hypercholesterolemia, hypothyroidism, throat CA post chemotherapy and radiation therapy 2011, home O2 dependent COPD ([id number], and profound autonomic dysfunction with recurrent syncope and orthostatic hypotension, aspiration pneumonia) and post PEG insertion, who presents with recurrent syncope twice, subjective fevers. Reports that he was walking to the bathroom (not on the toilet yet) when he started passing out. He reached for the door frame but was not able to hold on and fell onto the ground and hit the back of his head. Denies dizziness or heart palpitations prior to fall. Denies change in vision. Denies chest pain/ shortness of breath. Denies abdominal pain. He was unable to get up, even with the help of his , prompting them to call EMS. He notes various syncopal episodes in the past. He notes being started on Northera which has lowered his syncope frequency. Last seen in office 02/17/2019. - Current Medication List Current Medications: Active Medications Albuterol Sulfate (Ventolin 0.083% Nebulizer Soln -) 1 amp NEB Q6H PRN PRN Reason: Dyspnea Amlodipine Besylate (Norvasc -) 2.5 mg PEG DAILY [facility] Last Admin: 03/26/19 09:25 Dose: 2.5 mg Aspirin (Asa -) 81 mg PO DAILY [facility] Last Admin: 03/26/19 11:02 Dose: 81 mg Cholecalciferol (Vitamin D3 -) 2,000 unit PO DAILY [facility] Last Admin: 03/26/19 11:01 Dose: 2,000 unit Cyanocobalamin (Vitamin B12 -) 1,000 mcg PO DAILY [facility] Last Admin: 03/26/19 11:02 Dose: 1,000 mcg Enoxaparin Sodium (Lovenox -) 30 mg SQ BID [facility] Last Admin: 03/26/19 22:35 Dose: 30 mg Gabapentin (Neurontin Oral Liquid -) 100 mg GT TID [facility] Last Admin: 03/27/19 06:39 Dose: 100 mg Levothyroxine Sodium (Synthroid -) 125 mcg PO DAILY@0700 [facility] Last Admin: 03/27/19 06:39 Dose: 125 mcg Lidocaine (Lidoderm Patch -) 1 patch TP DAILY [facility] Last Admin: 03/26/19 11:02 Dose: Not Given Meclizine HCl (Antivert -) 25 mg PO TID PRN PRN Reason: VERTIGO Miscellaneous (Lidoderm Patch Removal) 1 each MC DAILY@2200 [facility] Last Admin: 03/26/19 22:37 Dose: Not Given Rosuvastatin Calcium (Crestor -) 10 mg PO HS [facility] Last Admin: 03/26/19 22:35 Dose: 10 mg - Objective Vital Signs: Vital Signs Temperature 98 F 03/27/19 02:00 Pulse Rate 64 03/27/19 06:00 Respiratory Rate 20 03/27/19 08:36 Blood Pressure 96/48 L 03/27/19 06:00 O2 Sat by Pulse Oximetry (%) 99 03/26/19 09:00 Constitutional: Yes: Calm Eyes: Yes: WNL HENT: Yes: WNL Neck: Yes: WNL Cardiovascular: Yes: S1, S2 Respiratory: Yes: WNL Gastrointestinal: Yes: Other (PEG feeding) ...Rectal Exam: Yes: Deferred Genitourinary: No: Anuria Breast(s): Yes: WNL Musculoskeletal: Yes: Muscle Weakness Extremities: Yes: WNL Edema: No Peripheral Pulses WNL: Yes Integumentary: Yes: WNL Neurological: Yes: Alert, Oriented, Weakness Psychiatric: Yes: Alert, Oriented Labs: CBC, BMP 03/27/19 05:45 03/27/19 05:45 Abnormal Lab Results 03/27/19 03/27/19 05:45 05:45 RBC 3.78 L Hgb 11.4 L Hct 33.5 L Potassium 3.4 L Carbon Dioxide 34 H Anion Gap 4 L BUN 24.9 H Random Glucose 113 H - ....Imaging Chest X-ray: Image Reviewed (no acute infiltrate) EKG: Image Reviewed (NSR; nonspecific T wave changes) Problem List - Problems (1) Syncope Code(s): R55 - SYNCOPE AND COLLAPSE Qualifiers: Syncope type: unspecified Qualified Code(s): R55 - Syncope and collapse (2) Vertigo Assessment/Plan: on meclizine Code(s): R42 - DIZZINESS AND GIDDINESS (3) Aspiration pneumonia Code(s): J69.0 - PNEUMONITIS DUE TO INHALATION OF FOOD AND VOMIT Qualifiers: Aspiration pneumonia type: unspecified Laterality: bilateral Lung location: lower lobe of lung Qualified Code(s): J69.0 - Pneumonitis due to inhalation of food and vomit (4) Autonomic postural hypotension Assessment/Plan: F/u orthostatic vital signs. Avoid dehydration. F/u with neurology. Code(s): I95.1 - ORTHOSTATIC HYPOTENSION (5) Carotid stenosis Code(s): I65.29 - OCCLUSION AND STENOSIS OF UNSPECIFIED CAROTID ARTERY (6) Dysautonomia orthostatic hypotension syndrome Code(s): G90.3 - MULTI-SYSTEM DEGENERATION OF THE AUTONOMIC NERVOUS SYSTEM (7) Fall Code(s): W19.XXXA - UNSPECIFIED FALL, INITIAL ENCOUNTER Qualifiers: Encounter type: initial encounter Qualified Code(s): W19.XXXA - Unspecified fall, initial encounter (8) HLD (hyperlipidemia) Code(s): E78.5 - HYPERLIPIDEMIA, UNSPECIFIED Qualifiers: Hyperlipidemia type: pure hypercholesterolemia Qualified Code(s): E78.00 - Pure hypercholesterolemia, unspecified; E78.0 - Pure hypercholesterolemia (9) HTN (hypertension) Assessment/Plan: on amlodipine. Code(s): I10 - ESSENTIAL (PRIMARY) HYPERTENSION Qualifiers: Hypertension type: essential hypertension Qualified Code(s): I10 - Essential (primary) hypertension (10) History of throat cancer Assessment/Plan: s/p radiatin Rx. Code(s): Z85.819 - PRSNL HX OF MALIG NEOPLM OF UNSP SITE LIP,ORAL CAV,& PHARYNX (11) Labile hypertension Code(s): I10 - ESSENTIAL (PRIMARY) HYPERTENSION (12) Orthostatic hypotension Code(s): I95.1 - ORTHOSTATIC HYPOTENSION (13) Hypokalemia Assessment/Plan: replete, and keep K+ at 4.0-4.5 Code(s): E87.6 - HYPOKALEMIA (14) PEG (percutaneous endoscopic gastrostomy) status Assessment/Plan: Pt lost >100 lbs in the past two years (since being on PEG feeding). He is unable to take any solids or liquids PO (hx aspiration pneumonia). Code(s): Z93.1 - GASTROSTOMY STATUS (15) Carotid artery disease Assessment/Plan: US results noted: moderate plaque without stenosis. On rosuvastatin; f/u lipid panel. Code(s): I73.9 - PERIPHERAL VASCULAR DISEASE, UNSPECIFIED
[2019-03-27] MEDS ORDERED: POTASSIUM CHLORIDE ORAL LIQUID 20 MEQ/15 ML PO ONE (10:41)
[2019-03-27] MEDS: CYANOCOBALAMIN 1,000 MCG TABLET (FP) PO SCH (10:59)
[2019-03-27] MEDS: ASPIRIN 81 MG CHEWABLE TABLETS PO SCH (10:59)
[2019-03-27] MEDS: LIDOCAINE 5% TOPICAL PATCH TP SCH (10:59)
[2019-03-27] MEDS: ENOXAPARIN NA (PORCINE) 30 MG/0.3 ML DISP.SYRIN SQ SCH ×2 (10:59→23:13)
[2019-03-27] MEDS: amLODIPine BESYLATE 2.5 MG TABLET (FP) PEG SCH (10:59)
[2019-03-27] MEDS: CHOLECALCIFEROL (VIT D3) 1,000 UNIT (25 MCG) TABLET PO SCH (11:00)
--- NOTE | 2019-03-27 15:05 | PN ---
Progress Note, Physician Chief Complaint: Syncope History of Present Illness: U/S carotid:BL plaques without stenosis Echo reviewed Seen by Cardiology On Meclizine prn for vertigo - Current Medication List Current Medications: Active Medications Albuterol Sulfate (Ventolin 0.083% Nebulizer Soln -) 1 amp NEB Q6H PRN PRN Reason: Dyspnea Amlodipine Besylate (Norvasc -) 2.5 mg PEG DAILY [facility] Last Admin: 03/27/19 10:59 Dose: Not Given Aspirin (Asa -) 81 mg PO DAILY [facility] Last Admin: 03/27/19 10:59 Dose: 81 mg Cholecalciferol (Vitamin D3 -) 2,000 unit PO DAILY [facility] Last Admin: 03/27/19 11:00 Dose: 2,000 unit Cyanocobalamin (Vitamin B12 -) 1,000 mcg PO DAILY [facility] Last Admin: 03/27/19 10:59 Dose: 1,000 mcg Enoxaparin Sodium (Lovenox -) 30 mg SQ BID [facility] Last Admin: 03/27/19 10:59 Dose: 30 mg Gabapentin (Neurontin Oral Liquid -) 100 mg GT TID [facility] Last Admin: 03/27/19 14:30 Dose: 100 mg Levothyroxine Sodium (Synthroid -) 125 mcg PO DAILY@0700 [facility] Last Admin: 03/27/19 06:39 Dose: 125 mcg Lidocaine (Lidoderm Patch -) 1 patch TP DAILY [facility] Last Admin: 03/27/19 10:59 Dose: Not Given Meclizine HCl (Antivert -) 25 mg PO TID PRN PRN Reason: VERTIGO Miscellaneous (Lidoderm Patch Removal) 1 each MC DAILY@2200 [facility] Last Admin: 03/26/19 22:37 Dose: Not Given Rosuvastatin Calcium (Crestor -) 10 mg PO HS [facility] Last Admin: 03/26/19 22:35 Dose: 10 mg - Objective Vital Signs: Vital Signs Temperature 98 F 03/27/19 10:00 Pulse Rate 72 03/27/19 10:00 Respiratory Rate 18 03/27/19 10:00 Blood Pressure 143/99 03/27/19 10:00 O2 Sat by Pulse Oximetry (%) 99 03/26/19 09:00 Constitutional: Yes: Well Nourished, No Distress, Calm Cardiovascular: Yes: Regular Rate and Rhythm Respiratory: Yes: Regular Gastrointestinal: Yes: Normal Bowel Sounds, Soft Genitourinary: Yes: WNL Musculoskeletal: Yes: WNL Extremities: Yes: WNL Edema: No Peripheral Pulses WNL: Yes Neurological: Yes: Alert, Oriented Psychiatric: Yes: Alert, Oriented Labs: CBC, BMP 03/27/19 05:45 03/27/19 05:45 Problem List - Problems (1) PEG (percutaneous endoscopic gastrostomy) status Problems reviewed: Yes Code(s): Z93.1 - GASTROSTOMY STATUS (2) Syncope Assessment/Plan: -Fall precautions -Neurology Consult pending -Cardiology consult Problems reviewed: Yes Code(s): R55 - SYNCOPE AND COLLAPSE Qualifiers: Syncope type: unspecified Qualified Code(s): R55 - Syncope and collapse (3) Vertigo Assessment/Plan: -Improved on Meclizine Problems reviewed: Yes Code(s): R42 - DIZZINESS AND GIDDINESS (4) Autonomic postural hypotension Assessment/Plan: -Neurology consult -[facility] on hold 22 to Hypertensive crisis initially Problems reviewed: Yes Code(s): I95.1 - ORTHOSTATIC HYPOTENSION (5) Dysautonomia orthostatic hypotension syndrome Assessment/Plan: -Neurology consult -[facility] on hold 2/2 to Hypertensive crisis initially Problems reviewed: Yes Code(s): G90.3 - MULTI-SYSTEM DEGENERATION OF THE AUTONOMIC NERVOUS SYSTEM (6) Peripheral neuropathy Assessment/Plan: -BLLE -Change gabapentin to 100 mg B+L and 2300 mg HS Problems reviewed: Yes Code(s): G62.9 - POLYNEUROPATHY, UNSPECIFIED Assessment/Plan see problem list
[2019-03-27] MEDS: ROSUVASTATIN CA 10 MG TABLET (FP) PO SCH (23:14)
[2019-03-27] MEDS: LIDOCAINE PATCH REMOVAL MC SCH (23:14)
[2019-03-28] MEDS: GABAPENTIN 250 MG/5 ML ORAL SOLUTION, 470 ML BOTTLE GT SCH ×3 (06:33→21:23)
[2019-03-28] MEDS: LEVOTHYROXINE NA 125 MCG TABLET (FP) PO SCH (06:33)
[2019-03-28] MEDS ORDERED: ACETAMINOPHEN 160 MG/5 ML *Children Solution PO PRN (09:41)
--- NOTE | 2019-03-28 09:47 | PN ---
Progress Note, Physician Chief Complaint: Syncope History of Present Illness: U/S carotid:BL plaques without stenosis Echo reviewed Seen by Cardiology On Meclizine prn for vertigo - Current Medication List Current Medications: Active Medications Acetaminophen (Tylenol *Children Solution* -) 650 mg PO Q4H PRN PRN Reason: PAIN Albuterol Sulfate (Ventolin 0.083% Nebulizer Soln -) 1 amp NEB Q6H PRN PRN Reason: Dyspnea Amlodipine Besylate (Norvasc -) 2.5 mg PEG DAILY [facility] Last Admin: 03/27/19 10:59 Dose: Not Given Aspirin (Asa -) 81 mg PO DAILY [facility] Last Admin: 03/27/19 10:59 Dose: 81 mg Cholecalciferol (Vitamin D3 -) 2,000 unit PO DAILY [facility] Last Admin: 03/27/19 11:00 Dose: 2,000 unit Cyanocobalamin (Vitamin B12 -) 1,000 mcg PO DAILY [facility] Last Admin: 03/27/19 10:59 Dose: 1,000 mcg Enoxaparin Sodium (Lovenox -) 30 mg SQ BID [facility] Last Admin: 03/27/19 23:13 Dose: 30 mg Gabapentin (Neurontin Oral Liquid -) 100 mg GT TID [facility] Levothyroxine Sodium (Synthroid -) 125 mcg PO DAILY@0700 [facility] Last Admin: 03/28/19 06:33 Dose: 125 mcg Lidocaine (Lidoderm Patch -) 1 patch TP DAILY [facility] Last Admin: 03/27/19 10:59 Dose: Not Given Meclizine HCl (Antivert -) 25 mg PO TID PRN PRN Reason: VERTIGO Miscellaneous (Lidoderm Patch Removal) 1 each MC DAILY@2200 [facility] Last Admin: 03/27/19 23:14 Dose: Not Given Rosuvastatin Calcium (Crestor -) 10 mg PO HS [facility] Last Admin: 03/27/19 23:14 Dose: 10 mg - Objective Vital Signs: Vital Signs Temperature 98.1 F 03/28/19 01:30 Pulse Rate 84 03/28/19 05:44 Respiratory Rate 03/28/19 08:44 Blood Pressure 142/91 03/28/19 05:44 O2 Sat by Pulse Oximetry (%) 99 03/28/19 08:44 Constitutional: Yes: Well Nourished, No Distress, Calm Cardiovascular: Yes: Regular Rate and Rhythm Respiratory: Yes: Regular, On Nasal O2 Gastrointestinal: Yes: WNL, Other (PEG) Genitourinary: Yes: WNL Musculoskeletal: Yes: WNL Extremities: Yes: WNL Edema: No Peripheral Pulses WNL: Yes Neurological: Yes: Alert, Oriented Psychiatric: Yes: Alert, Oriented Labs: CBC, BMP 03/27/19 05:45 03/27/19 05:45 Problem List - Problems (1) PEG (percutaneous endoscopic gastrostomy) status Problems reviewed: Yes Code(s): Z93.1 - GASTROSTOMY STATUS (2) Syncope Assessment/Plan: -Fall precautions -Neurology Consult pending -Cardiology consult Problems reviewed: Yes Code(s): R55 - SYNCOPE AND COLLAPSE Qualifiers: Syncope type: unspecified Qualified Code(s): R55 - Syncope and collapse (3) Vertigo Assessment/Plan: -Improved on Meclizine Problems reviewed: Yes Code(s): R42 - DIZZINESS AND GIDDINESS (4) Autonomic postural hypotension Assessment/Plan: -Neurology consult -[facility] on hold 22 to Hypertensive crisis initially Problems reviewed: Yes Code(s): I95.1 - ORTHOSTATIC HYPOTENSION (5) Dysautonomia orthostatic hypotension syndrome Assessment/Plan: -Neurology consult -[place] on hold 2/2 to Hypertensive crisis initially Problems reviewed: Yes Code(s): G90.3 - MULTI-SYSTEM DEGENERATION OF THE AUTONOMIC NERVOUS SYSTEM (6) Peripheral neuropathy Assessment/Plan: -BLLE -Change gabapentin to 100 mg B+L and 2300 mg HS Problems reviewed: Yes Code(s): G62.9 - POLYNEUROPATHY, UNSPECIFIED Assessment/Plan see problem list
--- NOTE | 2019-03-28 10:40 | CONSULT ---
Consult - text type - Consultation Consultation Note: Neurology CHIEF COMPLAINT: fell to the floor hitting his head PCP:Dr. Murillo Judge Clerk: Dr. Maki Swimming Pool Servicer:Dr. Rhoda Dennis Neurologist: Dr. Rodriguez Oncologist: Dr. 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 Qureshi at [facility], has GT tube, currently cancer free, COPD, home oxygen dependent, hyperlipidemia, hypothyroidism, nonobstructive CAD, diastolic congestive heart failure, and orthostatic hypotension/dysautonomia secondary from radiation therapy who presented to the ER after a fall versus syncopal episode. Patient was unable to tell if there was LOC. He reported he was going to the bathroom and he started to feel dizzy, grabbed the door and then he fell to the floor hitting the back side of his head. He reported he had fever of 103.3 on day of admission associated with chills. He reported he has had multiple prior syncopal episodes secondary to dysautonomia post radiation therapy. He denied chest pain or shortness of breath. Ct of head reviewed and showed no evidence of acute intracranial pathology. Ct of cervical spine also performed and no fracture where identified. Carotid ultrasound reviewed and demonstrated moderate size plaque at right CCA bifurcation as well as intimal thickening and likely small soft plaque in left ICA without HD significant stenosis. CT of the thorax did not show any evidence of pulmonary embolus. Patient's blood pressures have been labile and uncharacteristically hypertensive. The question of blood pressure management and Northera which he was on as outpatient for hypotension, I would suggest that if bp readings are hypotensive for 2 successive readings then may be appropriate to restartthe medication. We'll defer to cardiology regarding blood pressure management. Describes generalized fatigue, denies any focal deficits. Recent Travel: denies PAST MEDICAL HISTORY: throat and neck carcinoma nonobstructive CAD hyperlipidemia diastolic congestive heart failure COPD hypothyroidism Family History HTN PAST SURGICAL HISTORY: denies Social History: Smoking:no Alcohol:no Drugs: no REVIEW OF SYSTEMS CONSTITUTIONAL: Absent: fever, chills, diaphoresis, generalized weakness, malaise, loss of appetite, weight change HEENT: Absent: rhinorrhea, nasal congestion, throat pain, throat swelling, difficulty swallowing, mouth swelling, ear pain, eye pain, visual changes CARDIOVASCULAR: Absent: chest pain, syncopy, palpitations, irregular heart rate, lightheadedness , peripheral edema, +dizziness RESPIRATORY: Absent: cough, shortness of breath, dyspnea with exertion, orthopnea, wheezing, stridor, hemoptysis GASTROINTESTINAL: Absent: abdominal pain, abdominal distension, nausea, vomiting, diarrhea, constipation, melena, hematochezia GENITOURINARY: Absent: dysuria, frequency, urgency, hesitancy, hematuria, flank pain, genital pain MUSCULOSKELETAL: Absent: myalgia, arthralgia, joint swelling, back pain, neck pain SKIN: Absent: rash, itching, pallor HEMATOLOGIC/IMMUNOLOGIC: Absent: easy bleeding, easy bruising, lymphadenopathy, frequent infections ENDOCRINE: Absent: unexplained weight gain, unexplained weight loss, heat intolerance, cold intolerance NEUROLOGIC: Absent: headache, focal weakness or paresthesias, dizziness, unsteady gait, seizure, mental status changes, bladder or bowel incontinence PSYCHIATRIC: Absent: anxiety, depression, suicidal or homicidal ideation, hallucinations. Allergies tamsulosin HCl [From Flomax] Adverse Reaction (Intermediate, Verified 03/25/19 13:32) dizziness HOME MEDICATIONS: Home Medications Medication Instructions Recorded Aspirin [ASA -] 81 mg PO DAILY 10/20/15 Cholecalciferol (Vitamin D3) 2,000 unit PO DAILY 10/20/15 [Vitamin D3] Cyanocobalamin (Vitamin B-12) 1,000 mcg PO DAILY 10/20/15 [Vitamin B-12] Rosuvastatin Calcium [Crestor] 10 mg PO HS 10/20/15 Gabapentin Liquid [Neurontin Oral 100 mg GT TID #120 ml 02/19/18 Liquid -] Albuterol 0.083% Nebulizer Malissa 1 amp NEB RQID PRN amp 12/22/18 [Ventolin 0.083% Nebulizer Soln -] Amlodipine Besylate [Norvasc -] 2.5 mg PEG DAILY tablet 12/22/18 Lidocaine 5% Patch [Lidoderm -] 1 patch TP DAILY #30 patch 12/22/18 Levothyroxine [Synthroid -] 125 mcg PO DAILY@0700 tablet 02/12/19 Sulfamethoxazole/Trimethoprim 20 ml PO BID #560 ml 02/12/19 [Bactrim Oral Suspension -] Cefuroxime Axetil [Ceftin -] 500 mg PO Q12H #14 tablet 03/01/19 Active Medications Acetaminophen (Tylenol *Children Solution* -) 650 mg PO Q4H PRN PRN Reason: PAIN Albuterol Sulfate (Ventolin 0.083% Nebulizer Soln -) 1 amp NEB Q6H PRN PRN Reason: Dyspnea Amlodipine Besylate (Norvasc -) 2.5 mg PEG DAILY [facility] Last Admin: 03/27/19 10:59 Dose: Not Given Aspirin (Asa -) 81 mg PO DAILY [facility] Last Admin: 03/27/19 10:59 Dose: 81 mg Cholecalciferol (Vitamin D3 -) 2,000 unit PO DAILY [facility] Last Admin: 03/27/19 11:00 Dose: 2,000 unit Cyanocobalamin (Vitamin B12 -) 1,000 mcg PO DAILY [facility] Last Admin: 03/27/19 10:59 Dose: 1,000 mcg Enoxaparin Sodium (Lovenox -) 30 mg SQ BID [facility] Last Admin: 03/27/19 23:13 Dose: 30 mg Gabapentin (Neurontin Oral Liquid -) 100 mg GT BID@0700,1200 [facility] Gabapentin (Neurontin Oral Liquid -) 200 mg GT [facility] Levothyroxine Sodium (Synthroid -) 125 mcg PO DAILY@0700 [facility] Last Admin: 03/28/19 06:33 Dose: 125 mcg Lidocaine (Lidoderm Patch -) 1 patch TP DAILY [facility] Last Admin: 03/27/19 10:59 Dose: Not Given Meclizine HCl (Antivert -) 25 mg PO TID PRN PRN Reason: VERTIGO Miscellaneous (Lidoderm Patch Removal) 1 each MC DAILY@2200 [facility] Last Admin: 03/27/19 23:14 Dose: Not Given Rosuvastatin Calcium (Crestor -) 10 mg PO [facility] Last Admin: 03/27/19 23:14 Dose: 10 mg PHYSICAL EXAMINATION Vital Signs Period Temp Pulse Resp BP Sys/Leblanc Pulse Ox Last 24 Hr 97.8 F-98.2 F 79-88 18-20 70-156/46-103 95-99 GENERAL: awake alert and fully oriented no acute distress HEAD: normal EYES: pupils equal round and reactive to light EARS, NOSE, THROAT: ears normal nares patent NECK: normal range of motion LUNGS: breath sounds clear to auscultation bilaterally no wheeze no rales nonlabored breathing effort no use of accessory muscles HEART: regular rate and rhythm normal S1 and S2 without murmur ABDOMEN: soft nontender not distended normoactive bowel sounds GT tube in place with no odor drainage or erythema MUSCULOSKELETAL: normal range of motion UPPER EXTREMITIES: 2+ pulses warm well-perfused LOWER EXTREMITIES: 2+ pulses warm well-perfused no pitting edema NEUROLOGICAL: awake, alert, interactive,, moves all extremities equally full strength bilaterally in upper and lower extremities, sensory intact PSYCHIATRIC: cooperative good eye contact appropriate mood and affect SKIN: warm dry normal turgor no rashes or lesions CBCD WBC 4.8 K/mm3 (4.0-10.0) 03/27/19 05:45 RBC 3.78 M/mm3 (4.00-5.60) L 03/27/19 05:45 Hgb 11.4 GM/dL (11.7-16.9) L 03/27/19 05:45 Hct 33.5 % (35.4-49) L 03/27/19 05:45 MCV 88.7 fl (80-96) 03/27/19 05:45 MCHC 33.9 g/dl (32.0-35.9) 03/27/19 05:45 RDW 13.9 % (11.9-15.9) 03/27/19 05:45 Plt Count 164 K/MM3 (134-434) 03/27/19 05:45 MPV 9.3 fl (7.5-11.1) 03/27/19 05:45 CMP Sodium 142 mmol/L (136-145) 03/27/19 05:45 Potassium 3.4 mmol/L (3.5-5.1) L 03/27/19 05:45 Chloride 104 mmol/L (98-107) 03/27/19 05:45 Carbon Dioxide 34 mmol/L (21-32) H 03/27/19 05:45 Anion Gap 4 MMOL/L (8-16) L 03/27/19 05:45 BUN 24.9 mg/dL (7-18) H 03/27/19 05:45 Creatinine 0.7 mg/dL (0.55-1.3) 03/27/19 05:45 Random Glucose 113 mg/dL (74-106) H 03/27/19 05:45 Calcium 9.2 mg/dL (8.5-10.1) 03/27/19 05:45 Total Bilirubin 0.6 mg/dL (0.2-1) 03/25/19 14:34 AST 15 U/L (15-37) 03/25/19 14:34 ALT 16 U/L (13-61) 03/25/19 14:34 Alkaline Phosphatase 84 U/L (45-117) 03/25/19 14:34 Total Protein 7.2 g/dl (6.4-8.2) 03/25/19 14:34 Albumin 3.4 g/dl (3.4-5.0) 03/25/19 14:34 CARDIAC ENZYMES Creatine Kinase 54 U/L (26-308) 03/25/19 14:34 Troponin I < 0.02 ng/ml (0.00-0.05) 03/26/19 00:10 ASSESSMENT/PLAN: 73 year old male with history of tongue and throat cancer treatment with chemotherapy and radiation therapy, follows with Oncology with Dr. Qureshi at [facility], has GT tube, currently cancer free, COPD, home oxygen dependent, hyperlipidemia, hypothyroidism, nonobstructive CAD, diastolic congestive heart failure, and orthostatic hypotension/dysautonomia secondary from radiation therapy who presented to the ER after a fall versus syncopal episode. Patient was unable to tell if there was LOC. He reported he was going to the bathroom and he started to feel dizzy, grabbed the door and then he fell to the floor hitting the back side of his head. He reported he had fever of 103.3 on day of admission associated with chills. He reported he has had multiple prior syncopal episodes secondary to dysautonomia post radiation therapy. He denied chest pain or shortness of breath. Ct of head reviewed and showed no evidence of acute intracranial pathology. Ct of cervical spine also performed and no fracture where identified. Carotid ultrasound reviewed and demonstrated moderate size plaque at right CCA bifurcation as well as intimal thickening and likely small soft plaque in left ICA without HD significant stenosis. CT of the thorax did not show any evidence of pulmonary embolus. Patient's blood pressures have been labile and uncharacteristically hypertensive. The question of blood pressure management and Northera which he was on as outpatient for hypotension, I would suggest that if bp readings are hypotensive for 2 successive readings then may be appropriate to restartthe medication. We'll defer to cardiology regarding blood pressure management. Describes generalized fatigue, denies any focal deficits. Monitor for infectious etiology although currently afebrile and does not have a white count , mmental status is at baseline without any cognitive difficulties.
[2019-03-28] MEDS: CHOLECALCIFEROL (VIT D3) 1,000 UNIT (25 MCG) TABLET PO SCH (10:53)
[2019-03-28] MEDS: ENOXAPARIN NA (PORCINE) 30 MG/0.3 ML DISP.SYRIN SQ SCH ×2 (10:54→21:23)
[2019-03-28] MEDS: CYANOCOBALAMIN 1,000 MCG TABLET (FP) PO SCH (10:54)
[2019-03-28] MEDS: LIDOCAINE 5% TOPICAL PATCH TP SCH (10:57)
[2019-03-28] MEDS: ASPIRIN 81 MG CHEWABLE TABLETS PO SCH (10:57)
[2019-03-28] MEDS: amLODIPine BESYLATE 2.5 MG TABLET (FP) PEG SCH (10:58)
--- NOTE | 2019-03-28 19:49 | PN ---
Progress Note, Physician History of Present Illness: AWAKE,ALERT IN BED PT REPORTS VERTIGO IMPROVED EPISODE OF HEMOPTYSIS NO C/O CHEST PAIN/ DYSPNEA NO FEVER/ CHILLS CT CHEST NO NEW INFILTRATE - Current Medication List Current Medications: Active Medications Acetaminophen (Tylenol *Children Solution* -) 650 mg PO Q4H PRN PRN Reason: PAIN Albuterol Sulfate (Ventolin 0.083% Nebulizer Soln -) 1 amp NEB Q6H PRN PRN Reason: Dyspnea Amlodipine Besylate (Norvasc -) 2.5 mg PEG DAILY [facility] Last Admin: 03/28/19 10:58 Dose: Not Given Aspirin (Asa -) 81 mg PO DAILY [facility] Last Admin: 03/28/19 10:57 Dose: 81 mg Cholecalciferol (Vitamin D3 -) 2,000 unit PO DAILY [facility] Last Admin: 03/28/19 10:53 Dose: 2,000 unit Cyanocobalamin (Vitamin B12 -) 1,000 mcg PO DAILY [facility] Last Admin: 03/28/19 10:54 Dose: 1,000 mcg Enoxaparin Sodium (Lovenox -) 30 mg SQ BID [facility] Last Admin: 03/28/19 10:54 Dose: 30 mg Gabapentin (Neurontin Oral Liquid -) 100 mg GT BID@0700,1200 [facility] Last Admin: 03/28/19 12:49 Dose: 100 mg Gabapentin (Neurontin Oral Liquid -) 200 mg GT [facility] Levothyroxine Sodium (Synthroid -) 125 mcg PO DAILY@0700 [facility] Last Admin: 03/28/19 06:33 Dose: 125 mcg Lidocaine (Lidoderm Patch -) 1 patch TP DAILY [facility] Last Admin: 03/28/19 10:57 Dose: Not Given Meclizine HCl (Antivert -) 25 mg PO TID PRN PRN Reason: VERTIGO Miscellaneous (Lidoderm Patch Removal) 1 each MC DAILY@2200 [facility] Last Admin: 03/27/19 23:14 Dose: Not Given Rosuvastatin Calcium (Crestor -) 10 mg PO HS [facility] Last Admin: 03/27/19 23:14 Dose: 10 mg - Objective Vital Signs: Vital Signs Temperature 97.3 F L 03/28/19 18:00 Pulse Rate 70 03/28/19 18:00 Respiratory Rate 18 03/28/19 18:00 Blood Pressure 138/92 03/28/19 18:00 O2 Sat by Pulse Oximetry (%) 99 03/28/19 08:44 Constitutional: Yes: No Distress Cardiovascular: Yes: Regular Rate and Rhythm, S1, S2 Respiratory: Yes: CTA Bilaterally Gastrointestinal: Yes: Normal Bowel Sounds, Soft Edema: No Labs: CBC, BMP 03/27/19 05:45 03/27/19 05:45 Assessment/Plan S/P SYCOPE S/P HIGH GRADE FEVER AT HOME HX + SPUTUM C/S MRSA, PSEUDOMONAS CONTINUE CEFEPIME
[2019-03-28] MEDS: LIDOCAINE PATCH REMOVAL MC SCH (21:18)
[2019-03-28] MEDS: ROSUVASTATIN CA 10 MG TABLET (FP) PO SCH (21:23)
[2019-03-29] MEDS: GABAPENTIN 250 MG/5 ML ORAL SOLUTION, 470 ML BOTTLE GT SCH ×3 (06:26→21:30)
[2019-03-29] MEDS: LEVOTHYROXINE NA 125 MCG TABLET (FP) PO SCH (06:26)
--- NOTE | 2019-03-29 07:07 | PN ---
Progress Note, Physician - Current Medication List Current Medications: Active Medications Acetaminophen (Tylenol *Children Solution* -) 650 mg PO Q4H PRN PRN Reason: PAIN Albuterol Sulfate (Ventolin 0.083% Nebulizer Soln -) 1 amp NEB Q6H PRN PRN Reason: Dyspnea Amlodipine Besylate (Norvasc -) 2.5 mg PEG DAILY [facility] Last Admin: 03/28/19 10:58 Dose: Not Given Aspirin (Asa -) 81 mg PO DAILY [facility] Last Admin: 03/28/19 10:57 Dose: 81 mg Cholecalciferol (Vitamin D3 -) 2,000 unit PO DAILY [facility] Last Admin: 03/28/19 10:53 Dose: 2,000 unit Cyanocobalamin (Vitamin B12 -) 1,000 mcg PO DAILY [facility] Last Admin: 03/28/19 10:54 Dose: 1,000 mcg Enoxaparin Sodium (Lovenox -) 30 mg SQ BID [facility] Last Admin: 03/28/19 21:23 Dose: 30 mg Gabapentin (Neurontin Oral Liquid -) 100 mg GT BID@0700,1200 [facility] Last Admin: 03/29/19 06:26 Dose: 100 mg Gabapentin (Neurontin Oral Liquid -) 200 mg GT [facility] Last Admin: 03/28/19 21:23 Dose: 200 mg Levothyroxine Sodium (Synthroid -) 125 mcg PO DAILY@0700 [facility] Last Admin: 03/29/19 06:26 Dose: 125 mcg Meclizine HCl (Antivert -) 25 mg PO TID PRN PRN Reason: VERTIGO Miscellaneous (Lidoderm Patch Removal) 1 each MC DAILY@2200 [facility] Last Admin: 03/28/19 21:18 Dose: Not Given Rosuvastatin Calcium (Crestor -) 10 mg PO [facility] Last Admin: 03/28/19 21:23 Dose: 10 mg - Objective Vital Signs: Vital Signs Temperature 97.5 F L 03/29/19 01:54 Pulse Rate 66 03/29/19 06:00 Respiratory Rate 20 03/29/19 06:00 Blood Pressure 132/90 03/29/19 06:00 O2 Sat by Pulse Oximetry (%) 99 03/28/19 08:44 Labs: CBC, BMP 03/27/19 05:45 03/27/19 05:45 Problem List - Problems (1) Syncope Code(s): R55 - SYNCOPE AND COLLAPSE Qualifiers: Syncope type: unspecified Qualified Code(s): R55 - Syncope and collapse (2) Vertigo Assessment/Plan: on meclizine Code(s): R42 - DIZZINESS AND GIDDINESS (3) Aspiration pneumonia Code(s): J69.0 - PNEUMONITIS DUE TO INHALATION OF FOOD AND VOMIT Qualifiers: Aspiration pneumonia type: unspecified Laterality: bilateral Lung location: lower lobe of lung Qualified Code(s): J69.0 - Pneumonitis due to inhalation of food and vomit (4) Autonomic postural hypotension Assessment/Plan: F/u orthostatic vital signs. Avoid dehydration. Now with periods of hypertension; on amlodipine (increased as necessary). F/u with neurology. Code(s): I95.1 - ORTHOSTATIC HYPOTENSION (5) Carotid stenosis Code(s): I65.29 - OCCLUSION AND STENOSIS OF UNSPECIFIED CAROTID ARTERY (6) Dysautonomia orthostatic hypotension syndrome Code(s): G90.3 - MULTI-SYSTEM DEGENERATION OF THE AUTONOMIC NERVOUS SYSTEM (7) Fall Code(s): W19.XXXA - UNSPECIFIED FALL, INITIAL ENCOUNTER Qualifiers: Encounter type: initial encounter Qualified Code(s): W19.XXXA - Unspecified fall, initial encounter (8) HLD (hyperlipidemia) Code(s): E78.5 - HYPERLIPIDEMIA, UNSPECIFIED Qualifiers: Hyperlipidemia type: pure hypercholesterolemia Qualified Code(s): E78.00 - Pure hypercholesterolemia, unspecified; E78.0 - Pure hypercholesterolemia (9) HTN (hypertension) Code(s): I10 - ESSENTIAL (PRIMARY) HYPERTENSION Qualifiers: Hypertension type: essential hypertension Qualified Code(s): I10 - Essential (primary) hypertension (10) History of throat cancer Code(s): Z85.819 - PRSNL HX OF MALIG NEOPLM OF UNSP SITE LIP,ORAL CAV,& PHARYNX (11) Labile hypertension Code(s): I10 - ESSENTIAL (PRIMARY) HYPERTENSION (12) Orthostatic hypotension Code(s): I95.1 - ORTHOSTATIC HYPOTENSION (13) Hypokalemia Assessment/Plan: replete, and keep K+ at 4.0-4.5 Code(s): E87.6 - HYPOKALEMIA (14) PEG (percutaneous endoscopic gastrostomy) status Assessment/Plan: Pt lost >100 lbs in the past two years (since being on PEG feeding). He is unable to take any solids or liquids PO (hx aspiration pneumonia). Code(s): Z93.1 - GASTROSTOMY STATUS (15) Carotid artery disease Assessment/Plan: US results noted: moderate plaque without stenosis. On rosuvastatin; f/u lipid panel. Code(s): I73.9 - PERIPHERAL VASCULAR DISEASE, UNSPECIFIED (16) Ascending aorta dilatation Assessment/Plan: CTA chest done: "aneurysmal dilatation (4.1) considered stable". Mild-moderate aortic regurgitation on ECHO. Code(s): I77.810 - THORACIC AORTIC ECTASIA
--- NOTE | 2019-03-29 09:33 | PN ---
Progress Note, Physician - Current Medication List Current Medications: Active Medications Acetaminophen (Tylenol *Children Solution* -) 650 mg PO Q4H PRN PRN Reason: PAIN Albuterol Sulfate (Ventolin 0.083% Nebulizer Soln -) 1 amp NEB Q6H PRN PRN Reason: Dyspnea Amlodipine Besylate (Norvasc -) 2.5 mg PEG DAILY [facility] Last Admin: 03/28/19 10:58 Dose: Not Given Aspirin (Asa -) 81 mg PO DAILY [facility] Last Admin: 03/28/19 10:57 Dose: 81 mg Cholecalciferol (Vitamin D3 -) 2,000 unit PO DAILY [facility] Last Admin: 03/28/19 10:53 Dose: 2,000 unit Cyanocobalamin (Vitamin B12 -) 1,000 mcg PO DAILY [facility] Last Admin: 03/28/19 10:54 Dose: 1,000 mcg Enoxaparin Sodium (Lovenox -) 30 mg SQ BID [facility] Last Admin: 03/28/19 21:23 Dose: 30 mg Gabapentin (Neurontin Oral Liquid -) 100 mg GT BID@0700,1200 [facility] Last Admin: 03/29/19 06:26 Dose: 100 mg Gabapentin (Neurontin Oral Liquid -) 200 mg GT [facility] Last Admin: 03/28/19 21:23 Dose: 200 mg Levothyroxine Sodium (Synthroid -) 125 mcg PO DAILY@0700 [facility] Last Admin: 03/29/19 06:26 Dose: 125 mcg Meclizine HCl (Antivert -) 25 mg PO TID PRN PRN Reason: VERTIGO Miscellaneous (Lidoderm Patch Removal) 1 each MC DAILY@2200 [facility] Last Admin: 03/28/19 21:18 Dose: Not Given Rosuvastatin Calcium (Crestor -) 10 mg PO [facility] Last Admin: 03/28/19 21:23 Dose: 10 mg - Objective Vital Signs: Vital Signs Temperature 97.5 F L 03/29/19 01:54 Pulse Rate 66 03/29/19 06:00 Respiratory Rate 20 03/29/19 06:00 Blood Pressure 132/90 03/29/19 06:00 O2 Sat by Pulse Oximetry (%) 99 03/28/19 08:44 Cardiovascular: Yes: S1, S2 Respiratory: Yes: On Nasal O2, Rhonchi Gastrointestinal: Yes: Normal Bowel Sounds, Soft Labs: CBC, BMP 03/27/19 05:45 03/27/19 05:45 Assessment/Plan - Problems (1) PEG (percutaneous endoscopic gastrostomy) status Problems reviewed: Yes Code(s): Z93.1 - GASTROSTOMY STATUS (2) Syncope Assessment/Plan: -Fall precautions -Neurology Consult pending -Cardiology consult Problems reviewed: Yes Code(s): R55 - SYNCOPE AND COLLAPSE Qualifiers: Syncope type: unspecified Qualified Code(s): R55 - Syncope and collapse (3) Vertigo Assessment/Plan: -Improved on Meclizine Problems reviewed: Yes Code(s): R42 - DIZZINESS AND GIDDINESS (4) Autonomic postural hypotension Assessment/Plan: -Neurology consult -[facility] on hold 2/2 to Hypertensive crisis initially Problems reviewed: Yes Code(s): I95.1 - ORTHOSTATIC HYPOTENSION (5) Dysautonomia orthostatic hypotension syndrome Assessment/Plan: -Neurology consult -[facility] on hold 2/2 to Hypertensive crisis initially Problems reviewed: Yes Code(s): G90.3 - MULTI-SYSTEM DEGENERATION OF THE AUTONOMIC NERVOUS SYSTEM (6) Peripheral neuropathy Assessment/Plan: -BLLE -Change gabapentin to 100 mg B+L and 2300 mg HS Problems reviewed: Yes Code(s): G62.9 - POLYNEUROPATHY, UNSPECIFIED
--- NOTE | 2019-03-29 09:54 | PN ---
Progress Note, Physician History of Present Illness: Denies recurrent near or true syncope, no events on monitor, occasional recurrent hemoptysis w/o recurrent fevers, Northera resumed. - Current Medication List Current Medications: Active Medications Acetaminophen (Tylenol *Children Solution* -) 650 mg PO Q4H PRN PRN Reason: PAIN Albuterol Sulfate (Ventolin 0.083% Nebulizer Soln -) 1 amp NEB Q6H PRN PRN Reason: Dyspnea Amlodipine Besylate (Norvasc -) 2.5 mg PEG DAILY [facility] Last Admin: 03/28/19 10:58 Dose: Not Given Aspirin (Asa -) 81 mg PO DAILY [facility] Last Admin: 03/28/19 10:57 Dose: 81 mg Cholecalciferol (Vitamin D3 -) 2,000 unit PO DAILY [facility] Last Admin: 03/28/19 10:53 Dose: 2,000 unit Cyanocobalamin (Vitamin B12 -) 1,000 mcg PO DAILY [facility] Last Admin: 03/28/19 10:54 Dose: 1,000 mcg Enoxaparin Sodium (Lovenox -) 30 mg SQ BID [facility] Last Admin: 03/28/19 21:23 Dose: 30 mg Gabapentin (Neurontin Oral Liquid -) 100 mg GT BID@0700,1200 [facility] Last Admin: 03/29/19 06:26 Dose: 100 mg Gabapentin (Neurontin Oral Liquid -) 200 mg GT [facility] Last Admin: 03/28/19 21:23 Dose: 200 mg Levothyroxine Sodium (Synthroid -) 125 mcg PO DAILY@0700 [facility] Last Admin: 03/29/19 06:26 Dose: 125 mcg Meclizine HCl (Antivert -) 25 mg PO TID PRN PRN Reason: VERTIGO Miscellaneous (Lidoderm Patch Removal) 1 each MC DAILY@2200 [facility] Last Admin: 03/28/19 21:18 Dose: Not Given Rosuvastatin Calcium (Crestor -) 10 mg PO HS [facility] Last Admin: 03/28/19 21:23 Dose: 10 mg - Objective Vital Signs: Vital Signs Temperature 97.5 F L 03/29/19 01:54 Pulse Rate 66 03/29/19 06:00 Respiratory Rate 20 03/29/19 06:00 Blood Pressure 132/90 03/29/19 06:00 O2 Sat by Pulse Oximetry (%) 99 03/28/19 08:44 Constitutional: Yes: No Distress, Calm, Thin Neck: Yes: Supple Cardiovascular: Yes: Regular Rate and Rhythm Respiratory: Yes: Regular, CTA Bilaterally Gastrointestinal: Yes: Normal Bowel Sounds, Soft Edema: No Labs: CBC, BMP 03/27/19 05:45 03/27/19 05:45 - ....Imaging EKG: Report Reviewed (Tele: NSR) Problem List - Problems (1) Syncope Code(s): R55 - SYNCOPE AND COLLAPSE Qualifiers: Syncope type: unspecified Qualified Code(s): R55 - Syncope and collapse (2) Autonomic postural hypotension Code(s): I95.1 - ORTHOSTATIC HYPOTENSION (3) CAD (coronary artery disease) Code(s): I25.10 - ATHSCL HEART DISEASE OF [place] CORONARY ARTERY W/O ANG PCTRS Qualifiers: Coronary Disease-Associated Artery/Lesion type: [place] artery [place] vs. transplanted heart: [place] heart Associated angina: without angina Qualified Code(s): I25.10 - Atherosclerotic heart disease of [place] coronary artery without angina pectoris (4) COPD (chronic obstructive pulmonary disease) Code(s): J44.9 - CHRONIC OBSTRUCTIVE PULMONARY DISEASE, UNSPECIFIED Qualifiers: COPD type: unspecified COPD Qualified Code(s): J44.9 - Chronic obstructive pulmonary disease, unspecified (5) Dysautonomia orthostatic hypotension syndrome Code(s): G90.3 - MULTI-SYSTEM DEGENERATION OF THE AUTONOMIC NERVOUS SYSTEM (6) HLD (hyperlipidemia) Code(s): E78.5 - HYPERLIPIDEMIA, UNSPECIFIED Qualifiers: Hyperlipidemia type: pure hypercholesterolemia Qualified Code(s): E78.00 - Pure hypercholesterolemia, unspecified; E78.0 - Pure hypercholesterolemia (7) History of throat cancer Code(s): Z85.819 - PRSNL HX OF MALIG NEOPLM OF UNSP SITE LIP,ORAL CAV,& PHARYNX (8) Hypothyroid Code(s): E03.9 - HYPOTHYROIDISM, UNSPECIFIED Qualifiers: Hypothyroidism type: unspecified Qualified Code(s): E03.9 - Hypothyroidism , unspecified (9) Labile hypertension Code(s): I10 - ESSENTIAL (PRIMARY) HYPERTENSION (10) Orthostatic hypotension Code(s): I95.1 - ORTHOSTATIC HYPOTENSION Assessment/Plan 03/27/2019 Chest CTA: No PE or new infiltrates, dilated ascending aorta 4.1 cm 03/26/2018 Echo: Normal LV size and fxn, mild LAE, mild MR, TR RVSP 40-50 mmHg, mild-mod AR, mild dilated ao 07/04/2017 Normal LV size and fxn LVEF 55-60%, normal RV size and fxn, mild LAE , mild AR 01/31/2016 Lexiscan Myoview: No ischemia, normal LVEF 67% 1. Recurrent syncope, orthostatic hypotension, profound autonomic dysfunction with post-concussive syndrome 2. Fevers and chills, h/o recurrent aspiration pneumonia with underlying COPD 3. HTN with labile BP 4. CAD (non-obstructive), angina pectoris 5. Diastolic dysfunction with class 0 NYHA classification heart failure 6. Hypercholesterolemia 7. Hypothyroidism 8. Head and neck CA s/p chemotherapy and radiation therapy 9. Post PEG 10. BPH PLAN: 1. May use Amlodipine 2.5 mg qd as needed if BP is severely high 2. Patient resumed Northera 600 tid for orthostatic hypotension and autonomic dysfunction 3. Observing off empiric antibiotic coverage per C&S, BD and O2 to keep SpO2 >90 % 4. Continue Crestor 5 qhs, ASA 81 qd 5. Enteral feeds, aspiration precautions, DVT prophylaxis 6. D/c planning with f/u with Dr. Guardado
[2019-03-29] MEDS: amLODIPine BESYLATE 2.5 MG TABLET (FP) PEG SCH (09:56)
[2019-03-29] MEDS: ASPIRIN 81 MG CHEWABLE TABLETS PO SCH (09:57)
[2019-03-29] MEDS: CYANOCOBALAMIN 1,000 MCG TABLET (FP) PO SCH (09:57)
[2019-03-29] MEDS: CHOLECALCIFEROL (VIT D3) 1,000 UNIT (25 MCG) TABLET PO SCH (09:57)
[2019-03-29] MEDS: ENOXAPARIN NA (PORCINE) 30 MG/0.3 ML DISP.SYRIN SQ SCH ×2 (10:01→21:30)
--- NOTE | 2019-03-29 11:07 | PN ---
Progress Note (short form) - Note Progress Note: Neurology CHIEF COMPLAINT: fell to the floor hitting his head PCP:Dr. Murillo Ob Gyn: Dr. Maki Caustic Loader:Dr. Rhoda Dennis Neurologist: Dr. Rodriguez Oncologist: Dr. Qureshi at [facility] HISTORY OF PRESENT ILLNESS: 73 year old male with history of tongue and throat cancer treatment with chemotherapy and radiation therapy, follows with Oncology with Dr. Qureshi at [facility], has GT tube, currently cancer free, COPD, home oxygen dependent, hyperlipidemia, hypothyroidism, nonobstructive CAD, diastolic congestive heart failure, and orthostatic hypotension/dysautonomia secondary from radiation therapy who presented to the ER after a fall versus syncopal episode. Patient was unable to tell if there was LOC. He reported he was going to the bathroom and he started to feel dizzy, grabbed the door and then he fell to the floor hitting the back side of his head. He reported he had fever of 103.3 on day of admission associated with chills. He reported he has had multiple prior syncopal episodes secondary to dysautonomia post radiation therapy. He denied chest pain or shortness of breath. Ct of head reviewed and showed no evidence of acute intracranial pathology. Ct of cervical spine also performed and no fracture where identified. Carotid ultrasound reviewed and demonstrated moderate size plaque at right CCA bifurcation as well as intimal thickening and likely small soft plaque in left ICA without HD significant stenosis. CT of the thorax did not show any evidence of pulmonary embolus. Patient's blood pressures have been labile and uncharacteristically hypertensive. The question of blood pressure management and Northera which he was on as outpatient for hypotension, was restarted and patient denies any issues. Cardiology note reviewed. Active Medications Acetaminophen (Tylenol *Children Solution* -) 650 mg PO Q4H PRN PRN Reason: PAIN Albuterol Sulfate (Ventolin 0.083% Nebulizer Soln -) 1 amp NEB Q6H PRN PRN Reason: Dyspnea Amlodipine Besylate (Norvasc -) 2.5 mg PEG DAILY [facility] Last Admin: 03/29/19 09:56 Dose: Not Given Aspirin (Asa -) 81 mg PO DAILY [facility] Last Admin: 03/29/19 09:57 Dose: 81 mg Cholecalciferol (Vitamin D3 -) 2,000 unit PO DAILY [facility] Last Admin: 03/29/19 09:57 Dose: 2,000 unit Cyanocobalamin (Vitamin B12 -) 1,000 mcg PO DAILY [facility] Last Admin: 03/29/19 09:57 Dose: 1,000 mcg Enoxaparin Sodium (Lovenox -) 30 mg SQ BID [facility] Last Admin: 03/29/19 10:01 Dose: 30 mg Gabapentin (Neurontin Oral Liquid -) 100 mg GT BID@0700,1200 [facility] Last Admin: 03/29/19 06:26 Dose: 100 mg Gabapentin (Neurontin Oral Liquid -) 200 mg GT [facility] Last Admin: 03/28/19 21:23 Dose: 200 mg Levothyroxine Sodium (Synthroid -) 125 mcg PO DAILY@0700 [facility] Last Admin: 03/29/19 06:26 Dose: 125 mcg Meclizine HCl (Antivert -) 25 mg PO TID PRN PRN Reason: VERTIGO Miscellaneous (Lidoderm Patch Removal) 1 each MC DAILY@2200 [facility] Last Admin: 03/28/19 21:18 Dose: Not Given Pt Own Med (Northera (- Droxodopa 300 Mg)) 2 each PO TID [facility] Rosuvastatin Calcium (Crestor -) 10 mg PO [facility] Last Admin: 03/28/19 21:23 Dose: 10 mg PHYSICAL EXAMINATION Vital Signs Period Temp Pulse Resp BP Sys/Leblanc Pulse Ox Last 24 Hr 97.3 F-98.2 F 66-78 16-20 107-166/68-109 GENERAL: awake alert and fully oriented no acute distress HEAD: normal EYES: pupils equal round and reactive to light EARS, NOSE, THROAT: ears normal nares patent NECK: normal range of motion LUNGS: breath sounds clear to auscultation bilaterally no wheeze no rales nonlabored breathing effort no use of accessory muscles HEART: regular rate and rhythm normal S1 and S2 without murmur ABDOMEN: soft nontender not distended normoactive bowel sounds GT tube in place with no odor drainage or erythema MUSCULOSKELETAL: normal range of motion UPPER EXTREMITIES: 2+ pulses warm well-perfused LOWER EXTREMITIES: 2+ pulses warm well-perfused no pitting edema NEUROLOGICAL: awake, alert, interactive,, moves all extremities equally full strength bilaterally in upper and lower extremities, sensory intact PSYCHIATRIC: cooperative good eye contact appropriate mood and affect SKIN: warm dry normal turgor no rashes or lesions CBCD WBC 4.8 K/mm3 (4.0-10.0) 03/27/19 05:45 RBC 3.78 M/mm3 (4.00-5.60) L 03/27/19 05:45 Hgb 11.4 GM/dL (11.7-16.9) L 03/27/19 05:45 Hct 33.5 % (35.4-49) L 03/27/19 05:45 MCV 88.7 fl (80-96) 03/27/19 05:45 MCHC 33.9 g/dl (32.0-35.9) 03/27/19 05:45 RDW 13.9 % (11.9-15.9) 03/27/19 05:45 Plt Count 164 K/MM3 (134-434) 03/27/19 05:45 MPV 9.3 fl (7.5-11.1) 03/27/19 05:45 CMP Sodium 142 mmol/L (136-145) 03/27/19 05:45 Potassium 3.4 mmol/L (3.5-5.1) L 03/27/19 05:45 Chloride 104 mmol/L (98-107) 03/27/19 05:45 Carbon Dioxide 34 mmol/L (21-32) H 03/27/19 05:45 Anion Gap 4 MMOL/L (8-16) L 03/27/19 05:45 BUN 24.9 mg/dL (7-18) H 03/27/19 05:45 Creatinine 0.7 mg/dL (0.55-1.3) 03/27/19 05:45 Random Glucose 113 mg/dL (74-106) H 03/27/19 05:45 Calcium 9.2 mg/dL (8.5-10.1) 03/27/19 05:45 Total Bilirubin 0.6 mg/dL (0.2-1) 03/25/19 14:34 AST 15 U/L (15-37) 03/25/19 14:34 ALT 16 U/L (13-61) 03/25/19 14:34 Alkaline Phosphatase 84 U/L (45-117) 03/25/19 14:34 Total Protein 7.2 g/dl (6.4-8.2) 03/25/19 14:34 Albumin 3.4 g/dl (3.4-5.0) 03/25/19 14:34 CARDIAC ENZYMES Creatine Kinase 54 U/L (26-308) 03/25/19 14:34 Troponin I < 0.02 ng/ml (0.00-0.05) 03/26/19 00:10 ASSESSMENT/PLAN: 73 year old male with history of tongue and throat cancer treatment with chemotherapy and radiation therapy, follows with Oncology with Dr. Qureshi at [facility], has GT tube, currently cancer free, COPD, home oxygen dependent, hyperlipidemia, hypothyroidism, nonobstructive CAD, diastolic congestive heart failure, and orthostatic hypotension/dysautonomia secondary from radiation therapy who presented to the ER after a fall versus syncopal episode. Patient was unable to tell if there was LOC. He reported he was going to the bathroom and he started to feel dizzy, grabbed the door and then he fell to the floor hitting the back side of his head. He reported he had fever of 103.3 on day of admission associated with chills. He reported he has had multiple prior syncopal episodes secondary to dysautonomia post radiation therapy. He denied chest pain or shortness of breath. Ct of head reviewed and showed no evidence of acute intracranial pathology. Ct of cervical spine also performed and no fracture where identified. Carotid ultrasound reviewed and demonstrated moderate size plaque at right CCA bifurcation as well as intimal thickening and likely small soft plaque in left ICA without HD significant stenosis. CT of the thorax did not show any evidence of pulmonary embolus. Patient's blood pressures have been labile and uncharacteristically hypertensive. The question of blood pressure management and Northera which he was on as outpatient for hypotension, was restarted and patient denies any issues. Cardiology note reviewed. Describes generalized fatigue, denies any focal deficits. Monitor for infectious etiology although currently afebrile and does not have a white count, mmental status is at baseline without any cognitive difficulties. No further rec'd at this time.
[2019-03-29] MEDS ORDERED: PT OWN MED DRAWER 7, Y5N ONE ×2 (12:47→12:53)
[2019-03-29] MEDS: DROXIDOPA PO SCH ×2 (13:06→21:48)
--- NOTE | 2019-03-29 14:16 | PN ---
Progress Note, Physician History of Present Illness: AWAKE,ALERT IN BED PT REPORTS VERTIGO IMPROVED NO FURTHER EPISODES OF HEMOPTYSIS NO C/O CHEST PAIN/ DYSPNEA NO FEVER/ CHILLS CT CHEST NO NEW INFILTRATE - Current Medication List Current Medications: Active Medications Acetaminophen (Tylenol *Children Solution* -) 650 mg PO Q4H PRN PRN Reason: PAIN Albuterol Sulfate (Ventolin 0.083% Nebulizer Soln -) 1 amp NEB Q6H PRN PRN Reason: Dyspnea Amlodipine Besylate (Norvasc -) 2.5 mg PEG DAILY [facility] Last Admin: 03/29/19 09:56 Dose: Not Given Aspirin (Asa -) 81 mg PO DAILY [facility] Last Admin: 03/29/19 09:57 Dose: 81 mg Cholecalciferol (Vitamin D3 -) 2,000 unit PO DAILY [facility] Last Admin: 03/29/19 09:57 Dose: 2,000 unit Cyanocobalamin (Vitamin B12 -) 1,000 mcg PO DAILY [facility] Last Admin: 03/29/19 09:57 Dose: 1,000 mcg Enoxaparin Sodium (Lovenox -) 30 mg SQ BID [facility] Last Admin: 03/29/19 10:01 Dose: 30 mg Gabapentin (Neurontin Oral Liquid -) 100 mg GT BID@0700,1200 [facility] Last Admin: 03/29/19 12:54 Dose: 100 mg Gabapentin (Neurontin Oral Liquid -) 200 mg GT [facility] Last Admin: 03/28/19 21:23 Dose: 200 mg Levothyroxine Sodium (Synthroid -) 125 mcg PO DAILY@0700 [facility] Last Admin: 03/29/19 06:26 Dose: 125 mcg Meclizine HCl (Antivert -) 25 mg PO TID PRN PRN Reason: VERTIGO Miscellaneous (Lidoderm Patch Removal) 1 each MC DAILY@2200 [facility] Last Admin: 03/28/19 21:18 Dose: Not Given Pt Own Med (Northera (- Droxodopa 300 Mg)) 2 each PO TID [facility] Last Admin: 03/29/19 13:06 Dose: 2 each Rosuvastatin Calcium (Crestor -) 10 mg PO [facility] Last Admin: 03/28/19 21:23 Dose: 10 mg - Objective Vital Signs: Vital Signs Temperature 98 F 03/29/19 10:24 Pulse Rate 78 03/29/19 10:24 Respiratory Rate 18 03/29/19 10:24 Blood Pressure 140/94 03/29/19 10:24 O2 Sat by Pulse Oximetry (%) 99 03/28/19 08:44 Constitutional: Yes: No Distress Eyes: Yes: Conjunctiva Clear Cardiovascular: Yes: Regular Rate and Rhythm, S1, S2 Respiratory: Yes: Diminished Gastrointestinal: Yes: Normal Bowel Sounds, Soft. No: Tenderness Edema: No Labs: CBC, BMP 03/27/19 05:45 03/27/19 05:45 Assessment/Plan S/P SYCOPE S/P HIGH GRADE FEVER AT HOME RESOLVED HX + SPUTUM C/S MRSA, PSEUDOMONAS OBSERVE OFF ANTIBIOTICS NO OBJECTION TO OUTPATIENT FOLLOW UP
[2019-03-29] MEDS: ROSUVASTATIN CA 10 MG TABLET (FP) PO SCH (21:29)
[2019-03-29] MEDS: LIDOCAINE PATCH REMOVAL MC SCH (21:30)
[2019-03-30] MEDS: GABAPENTIN 250 MG/5 ML ORAL SOLUTION, 470 ML BOTTLE GT SCH (06:07)
[2019-03-30] MEDS: LEVOTHYROXINE NA 125 MCG TABLET (FP) PO SCH (06:07)
[2019-03-30] MEDS: DROXIDOPA PO SCH (06:09)
--- NOTE | 2019-03-30 08:25 | DS ---
Physical Examination Vital Signs: Vital Signs Temperature 97.7 F 03/30/19 02:00 Pulse Rate 66 03/30/19 06:00 Respiratory Rate 20 03/30/19 06:00 Blood Pressure 121/76 03/30/19 06:00 O2 Sat by Pulse Oximetry (%) 99 03/28/19 08:44 Cardiovascular: Yes: Regular Rate and Rhythm Respiratory: Yes: Regular, CTA Bilaterally Gastrointestinal: Yes: Normal Bowel Sounds, Soft Labs: CBC, BMP 03/27/19 05:45 03/27/19 05:45 Discharge Summary Problems reviewed: Yes Reason For Visit: LABILE HYPERTENSION SYNCOPE Current Active Problems Ascending aorta dilatation (Acute) Carotid artery disease (Acute) PEG (percutaneous endoscopic gastrostomy) status (Acute) Peripheral neuropathy (Acute) Syncope (Acute) Vertigo (Acute) Hospital Course: - Problems (1) PEG (percutaneous endoscopic gastrostomy) status Problems reviewed: Yes Code(s): Z93.1 - GASTROSTOMY STATUS (2) Syncope Assessment/Plan: -Fall precautions -Neurology Consult pending -Cardiology consult Problems reviewed: Yes Code(s): R55 - SYNCOPE AND COLLAPSE Qualifiers: Syncope type: unspecified Qualified Code(s): R55 - Syncope and collapse (3) Vertigo Assessment/Plan: -Improved on Meclizine Problems reviewed: Yes Code(s): R42 - DIZZINESS AND GIDDINESS (4) Heomptysis Assessment/Plan: -CT noted no new infiltrates -OFF abx (5) Dysautonomia orthostatic hypotension syndrome Assessment/Plan: -Neurology consult -Northera resumed Problems reviewed: Yes Code(s): G90.3 - MULTI-SYSTEM DEGENERATION OF THE AUTONOMIC NERVOUS SYSTEM (6) Peripheral neuropathy Assessment/Plan: -BLLE -Change gabapentin to 100 mg B+L and 2300 mg HS Problems reviewed: Yes Code(s): G62.9 - POLYNEUROPATHY, UNSPECIFIED Condition: Stable - Instructions Referrals: Fern Murillo MD [Primary Care Provider] - - Home Medications Comprehensive Discharge Medication List: Ambulatory Orders Aspirin [ASA -] 81 mg PO DAILY 10/20/15 Cholecalciferol (Vitamin D3) [Vitamin D3] 2,000 unit PO DAILY 10/20/15 Cyanocobalamin (Vitamin B-12) [Vitamin B-12] 1,000 mcg PO DAILY 10/20/15 Rosuvastatin Calcium [Crestor] 10 mg PO HS 10/20/15 Gabapentin Liquid [Neurontin Oral Liquid -] 100 mg GT TID #120 ml 02/19/18 Albuterol 0.083% Nebulizer [place] [Ventolin 0.083% Nebulizer Soln -] 1 amp NEB RQID PRN amp 12/22/18 Amlodipine Besylate [Norvasc -] 2.5 mg PEG DAILY tablet 12/22/18 Lidocaine 5% Patch [Lidoderm -] 1 patch TP DAILY #30 patch 12/22/18 Levothyroxine [Synthroid -] 125 mcg PO DAILY@0700 tablet 02/12/19 Meclizine HCl [Antivert -] 25 mg PO TID PRN #90 tablet 03/30/19
[2019-03-30 09:34] VITALS: BP 144/87; PULSE 78; TEMP 98
[2019-03-30] MEDS: amLODIPine BESYLATE 2.5 MG TABLET (FP) PEG SCH (09:34)
[2019-03-30] MEDS: CHOLECALCIFEROL (VIT D3) 1,000 UNIT (25 MCG) TABLET PO SCH (09:37)
[2019-03-30] MEDS: ASPIRIN 81 MG CHEWABLE TABLETS PO SCH (09:37)
[2019-03-30] MEDS: ENOXAPARIN NA (PORCINE) 30 MG/0.3 ML DISP.SYRIN SQ SCH (09:37)
[2019-03-30] MEDS: CYANOCOBALAMIN 1,000 MCG TABLET (FP) PO SCH (09:37)
[2019-03-30 10:13] LABS: CALCIUM 9.2 mg/dL (8.5-10.1); CREATININE 0.8 mg/dL (0.55-1.3); MAGNESIUM 2.5 mg/dL (1.8-2.4); POTASSIUM 3.7 mmol/L (3.5-5.1)
== END 2019-03-30 10:18 | disposition home or self-care (01) | DRG 57 ==
LOC: JER 13:09 → INTOOBSV 17:47 → JERBED 17:47 → UNDOADMOB 17:47 → JERBED 19:36 → J4W 21:47 → OBSVTOIN 03-26 10:11
PROVIDERS: ADMIT Family Medicine; ATTEND Family Medicine
DX: G90.3 Multi-system degeneration of the autonomic nervous system (principal); I50.32 Chronic diastolic (congestive) heart failure; R04.2 Hemoptysis; J44.9 Chronic obstructive pulmonary disease, unspecified; R55 Syncope and collapse; Z93.1 Gastrostomy status; I25.10 Atherosclerotic heart disease of native coronary artery without angina pectoris; I95.1 Orthostatic hypotension; G62.9 Polyneuropathy, unspecified; E78.5 Hyperlipidemia, unspecified; E03.9 Hypothyroidism, unspecified; N40.0 Benign prostatic hyperplasia without lower urinary tract symptoms; I11.0 Hypertensive heart disease with heart failure
CPT/HCPCS: 36415; 70450-TC; 71045-TC-FY; 71275-TC; 72125-TC; 80048; 80053; 80061; 81003; 82550; 83721; 83735; 84100; 84443; 84484; 85025; 85027; 85379; 87040; 87086; 87804; 93005; 93010; 93306-TC; 93880-TC; 97116-GP; 97161-GP; 99284-25; G0378; J7030; Q9967

== ENCOUNTER 2019-04-19 11:26 | Day surgery (SDC) | payer OTHER, BC ==
[2019-04-16 15:42] VITALS: BMI 25.7
[2019-04-19] MEDS ORDERED: MIDAZOLAM HCL 2 MG/2 ML SINGLE DOSE VIAL ONE ×2 (13:07)
[2019-04-19 13:52] VITALS: TEMP 98.2
[2019-04-19 14:10] VITALS: BP 140/86; PULSE 75
--- NOTE | 2019-04-19 21:57 | OP ---
DATE OF OPERATION: 04/19/2019 TYPE OF PROCEDURE: Percutaneous endoscopic gastrostomy tube exchange. REASON FOR THE PROCEDURE: For deteriorated PEG tube. FINDINGS: The PEG site was noted to have minimal amount of granulation tissue which was removed manually. There was minimal amount of bleeding noted. This was cleansed with Betadine solution. A [place] 20 PEG tube was pulled out successfully. This was replaced with a replacement tube. A total of 6 mL of normal saline was injected to inflate the balloon. The procedure was terminated, and patient tolerated the procedure well. RECOMMENDATION: Bedside Gastrografin study. If the tube is in place, we will discharge the patient today. EZRA CARVER M.D. OLAMIDE/[id number]
== END 2019-04-19 15:26 | disposition home or self-care (01) ==
LOC: JASU-ENDO 11:26
PROVIDERS: ATTEND Internal Medicine Gastroenterology
PROC: 0D20XUZ Change Feeding Device in Upper Intestinal Tract, External Approach (ICD-10-PCS; principal; 2019-04-19 13:00)
DX: K94.23 Gastrostomy malfunction (principal)
CPT/HCPCS: 74019-TC-FY

== ENCOUNTER 2020-05-15 06:34 | Emergency (ER) | payer OTHER, BC ==
[2020-05-15 07:34] VITALS: TEMP 98.1; BMI 26.6
[2020-05-15] MEDS ORDERED: SODIUM CHLORIDE 0.9% 500 ML INFUS.BAG IV ONE (08:30)
[2020-05-15 10:08] LABS: BASO % 0.3 % (0-2.0); EOS % 1.3 % (0-4.5); HEMATOCRIT 36.5 % (35.4-49); HEMOGLOBIN 12.5 GM/dL (11.7-16.9); LYMPH % 8.3 % (8-40); MCH 30.6 pg (25.7-33.7); MCHC 34.1 g/dl (32.0-35.9); MEAN CELL VOLUME 89.7 fl (80-96); MONO % 7.8 % (3.8-10.2); NEUT % 82.3 % (42.8-82.8); PLATELET COUNT 243 K/MM3 (134-434); RBC 4.07 M/mm3 (4.00-5.60); RDW 13.2 % (11.9-15.9); WHITE BLOOD COUNT 8.7 K/mm3 (4.0-10.0)
[2020-05-15 10:13] VITALS: BP 150/91; PULSE 84
[2020-05-15 10:33] LABS: POTASSIUM 4.2 mmol/L (3.5-5.1)
[2020-05-15 10:36] LABS: ALBUMIN 3.6 g/dl (3.4-5.0); BLOOD UREA NITROGEN 21.9 mg/dL (7-18)
[2020-05-15 10:39] LABS: CREATININE 0.7 mg/dL (0.55-1.3)
[2020-05-15 10:41] LABS: BILIRUBIN,TOTAL 0.3 mg/dL (0.2-1); TOT PROT 7.4 g/dl (6.4-8.2)
[2020-05-15 10:49] LABS: CALCIUM 9.4 mg/dL (8.5-10.1)
== END 2020-05-15 11:08 | disposition home or self-care (01) ==
LOC: JER 06:34
DX: R04.0 Epistaxis (principal)
CPT/HCPCS: 36415; 80053; 85025; 99284-25

== ENCOUNTER 2020-09-08 19:31 | Emergency (ER) | payer OTHER, BC ==
[2020-09-08 19:39] VITALS: BP 165/99; PULSE 89; TEMP 97; BMI 26.4
[2020-09-08 22:00] LABS: BASO % 0.3 % (0-2.0); EOS % 0.9 % (0-4.5); HEMATOCRIT 40.8 % (35.4-49); HEMOGLOBIN 13.4 GM/dL (11.7-16.9); MCH 29.2 pg (25.7-33.7); MCHC 32.8 g/dl (32.0-35.9); MEAN CELL VOLUME 88.9 fl (80-96); MEAN PLT VOLUME 8.8 fl (7.5-11.1); MONO % 9.4 % (3.8-10.2); NEUT % 82.4 % (42.8-82.8); PLATELET COUNT 214 10^3/uL (134-434); RDW 13.2 % (11.9-15.9); WHITE BLOOD COUNT 8.6 K/mm3 (4.0-10.0)
[2020-09-08 22:11] LABS: INR 0.93 (0.83-1.09); PROTHROMBIN TIME (PATIENT) 11.3 SEC (9.7-13.0)
[2020-09-08 22:14] LABS: ACTIVATED PTT 28.4 SECONDS (25.2-36.5)
[2020-09-08 22:21] LABS: CHLORIDE 98 mmol/L (98-107); SODIUM 139 mmol/L (136-145)
[2020-09-08 22:23] LABS: ALBUMIN 3.8 g/dl (3.4-5.0); ANION GAP 6 MMOL/L (8-16); CALCIUM 9.3 mg/dL (8.5-10.1); CO2 35 mmol/L (21-32)
[2020-09-08 22:24] LABS: BLOOD UREA NITROGEN 22.9 mg/dL (7-18); GLUCOSE,RANDOM 124 mg/dL (74-106); MAGNESIUM 2.6 mg/dL (1.8-2.4)
[2020-09-08 22:26] LABS: SGPT/ALT 22 U/L (13-61)
[2020-09-08 22:27] LABS: CREATININE 0.8 mg/dL (0.55-1.3); PHOSPHOROUS 3.6 mg/dL (2.5-4.9); SGOT/AST 27 U/L (15-37)
[2020-09-08 22:28] LABS: BILIRUBIN,TOTAL 0.5 mg/dL (0.2-1); TOT PROT 7.5 g/dl (6.4-8.2)
[2020-09-08 22:29] LABS: ALK PHOS 89 U/L (45-117)
== END 2020-09-09 01:11 | disposition left against medical advice (07) ==
LOC: JER 19:31
DX: R42 Dizziness and giddiness (principal); I95.1 Orthostatic hypotension; R55 Syncope and collapse
CPT/HCPCS: 36415; 71045-TC-FY; 73610-TC-LT-FY; 73630-TC-LT; 80053; 82550; 83735; 84100; 84484; 85025; 85610; 85730; 86850; 86900; 86901; 93005; 93010; 99285-25; C9803; U0003; U0005

== ENCOUNTER 2020-12-29 22:18 | Inpatient (IN) | payer OTHER, BC ==
[2020-12-29 22:23] VITALS: BMI 25.7
[2020-12-29 23:17] LABS: BASO % 0.6 % (0-2.0); EOS % 4.4 % (0-4.5); HEMATOCRIT 37.1 % (35.4-49); HEMOGLOBIN 12.5 GM/dL (11.7-16.9); LYMPH % 15.8 % (8-40); MCH 29.7 pg (25.7-33.7); MCHC 33.6 g/dl (32.0-35.9); MEAN CELL VOLUME 88.5 fl (80-96); MEAN PLT VOLUME 8.3 fl (7.5-11.1); MONO % 8.2 % (3.8-10.2); PLATELET COUNT 256 10^3/uL (134-434); RBC 4.19 M/mm3 (4.00-5.60); RDW 13.9 % (11.9-15.9); WHITE BLOOD COUNT 7.3 K/mm3 (4.0-10.0)
[2020-12-29 23:24] LABS: INR 0.92 (0.83-1.09); PROTHROMBIN TIME (PATIENT) 10.7 SEC (9.7-13.0)
[2020-12-29 23:40] LABS: CALCIUM 9.5 mg/dL (8.5-10.1)
[2020-12-29 23:41] LABS: ALBUMIN 3.6 g/dl (3.4-5.0); BLOOD UREA NITROGEN 19.2 mg/dL (7-18)
[2020-12-29 23:45] LABS: BILIRUBIN,TOTAL 0.4 mg/dL (0.2-1); TOT PROT 7.2 g/dl (6.4-8.2)
[2020-12-30] MEDS ORDERED: SODIUM CHLORIDE 0.9% 500 ML INFUS.BAG IV ONE (02:17)
[2020-12-30 07:07] LABS: BASO % 0.2 % (0-2.0); EOS % 2.3 % (0-4.5); HEMATOCRIT 34.2 % (35.4-49); HEMOGLOBIN 11.6 GM/dL (11.7-16.9); LYMPH % 15.9 % (8-40); MCH 30.1 pg (25.7-33.7); MCHC 33.9 g/dl (32.0-35.9); MEAN CELL VOLUME 88.6 fl (80-96); MONO % 9.6 % (3.8-10.2); PLATELET COUNT 214 10^3/uL (134-434); RBC 3.86 M/mm3 (4.00-5.60); RDW 13.6 % (11.9-15.9); WHITE BLOOD COUNT 5.7 K/mm3 (4.0-10.0)
[2020-12-30] MEDS: DEXTROSE 5%-0.45% SALINE 1,000 ML IV SCH (08:31)
[2020-12-30 11:44] LABS: HEMATOCRIT 35.2 % (35.4-49); HEMOGLOBIN 11.7 GM/dL (11.7-16.9); MCH 29.7 pg (25.7-33.7); MCHC 33.4 g/dl (32.0-35.9); MEAN CELL VOLUME 89.1 fl (80-96); MEAN PLT VOLUME 8.2 fl (7.5-11.1); PLATELET COUNT 204 10^3/uL (134-434); RBC 3.95 M/mm3 (4.00-5.60); WHITE BLOOD COUNT 5.1 K/mm3 (4.0-10.0)
[2020-12-30 12:06] LABS: BLOOD UREA NITROGEN 17.4 mg/dL (7-18)
[2020-12-30 12:10] LABS: BILIRUBIN,TOTAL 0.5 mg/dL (0.2-1); TOT PROT 6.4 g/dl (6.4-8.2)
[2020-12-30 12:11] LABS: CREATININE 0.7 mg/dL (0.55-1.3)
[2020-12-31] MEDS ORDERED: LEVOTHYROXINE 25 MCG, LEVOTHYROXINE 112 MCG PO SCH (07:00)
[2020-12-31 07:55] LABS: HEMATOCRIT 31.4 % (35.4-49); HEMOGLOBIN 10.7 GM/dL (11.7-16.9); MCH 30.2 pg (25.7-33.7); MCHC 34.2 g/dl (32.0-35.9); MEAN CELL VOLUME 88.5 fl (80-96); MEAN PLT VOLUME 8.3 fl (7.5-11.1); PLATELET COUNT 200 10^3/uL (134-434); RBC 3.55 M/mm3 (4.00-5.60); RDW 13.7 % (11.9-15.9); WHITE BLOOD COUNT 5.1 K/mm3 (4.0-10.0)
[2020-12-31] MEDS ORDERED: LEVOTHYROXINE NA 25 MCG TABLET (FP) ONE (09:55)
[2020-12-31] MEDS ORDERED: LEVOTHYROXINE NA 112 MCG TABLET (FP) ONE (09:55)
[2020-12-31] MEDS ORDERED: PATIENT'S OWN MEDICATION (NON-FORMULARY) (Levothyroxine Sodium [Levothyroxine] 137 MCG Cap GT SCH (10:00)
[2020-12-31] MEDS: LEVOTHYROXINE 25 MCG, LEVOTHYROXINE 112 MCG GT SCH (10:07)
[2020-12-31] MEDS: DROXIDOPA 300 MG GT SCH ×3 (13:37→22:01)
[2020-12-31] MEDS: ROSUVASTATIN CA 5 MG TABLET (FP) PO SCH (18:59)
[2020-12-31] MEDS: DEXTROSE 5%-0.45% SALINE 1,000 ML IV SCH (22:01)
[2021-01-01] MEDS ORDERED: LEVOTHYROXINE NA 25 MCG TABLET (FP) ONE (06:13)
[2021-01-01] MEDS ORDERED: LEVOTHYROXINE NA 112 MCG TABLET (FP) ONE (06:13)
[2021-01-01] MEDS: LEVOTHYROXINE 25 MCG, LEVOTHYROXINE 112 MCG GT SCH (06:21)
[2021-01-01] MEDS: DROXIDOPA 300 MG GT SCH ×3 (06:22→21:39)
[2021-01-01 11:09] LABS: HEMATOCRIT 33.8 % (35.4-49); HEMOGLOBIN 11.4 GM/dL (11.7-16.9); MCH 29.9 pg (25.7-33.7); MCHC 33.8 g/dl (32.0-35.9); MEAN CELL VOLUME 88.5 fl (80-96); MEAN PLT VOLUME 8.5 fl (7.5-11.1); PLATELET COUNT 222 10^3/uL (134-434); RBC 3.82 M/mm3 (4.00-5.60); RDW 13.7 % (11.9-15.9); WHITE BLOOD COUNT 5.5 K/mm3 (4.0-10.0)
[2021-01-01] MEDS: ROSUVASTATIN CA 5 MG TABLET (FP) PO SCH (16:48)
[2021-01-02] MEDS ORDERED: METOPROLOL TARTRATE 5 MG/5 ML VIAL ONE (05:35)
[2021-01-02] MEDS: METOPROLOL TARTRATE 5 MG/5 ML VIAL IVPUSH PRN ×2 (05:50→13:29)
[2021-01-02] MEDS ORDERED: SODIUM CHLORIDE 250 ML IV STA ×2 (06:17→06:46)
[2021-01-02] MEDS ORDERED: LEVOTHYROXINE NA 112 MCG TABLET (FP) ONE (06:24)
[2021-01-02] MEDS ORDERED: LEVOTHYROXINE NA 25 MCG TABLET (FP) ONE (06:24)
[2021-01-02] MEDS: DROXIDOPA 300 MG GT SCH ×3 (06:32→21:21)
[2021-01-02] MEDS: LEVOTHYROXINE 25 MCG, LEVOTHYROXINE 112 MCG GT SCH (06:34)
[2021-01-02] MEDS ORDERED: AMIODARONE HCL 150 MG/3 ML VIAL IVPUSH ONE ×2 (07:35→14:10)
[2021-01-02 08:48] LABS: BASO % 0.7 % (0-2.0); EOS % 1.9 % (0-4.5); HEMATOCRIT 34.2 % (35.4-49); HEMOGLOBIN 11.5 GM/dL (11.7-16.9); LYMPH % 10.1 % (8-40); MCH 29.6 pg (25.7-33.7); MCHC 33.5 g/dl (32.0-35.9); MEAN CELL VOLUME 88.4 fl (80-96); MEAN PLT VOLUME 8.3 fl (7.5-11.1); MONO % 7.7 % (3.8-10.2); NEUT % 79.6 % (42.8-82.8); PLATELET COUNT 213 10^3/uL (134-434); RBC 3.87 M/mm3 (4.00-5.60); RDW 13.6 % (11.9-15.9); WHITE BLOOD COUNT 6.6 K/mm3 (4.0-10.0)
[2021-01-02 09:16] LABS: CALCIUM 8.8 mg/dL (8.5-10.1)
[2021-01-02 09:17] LABS: ALBUMIN 2.8 g/dl (3.4-5.0)
[2021-01-02 09:20] LABS: CREATININE 0.8 mg/dL (0.55-1.3)
[2021-01-02 09:21] LABS: BILIRUBIN,TOTAL 0.5 mg/dL (0.2-1); TOT PROT 6.1 g/dl (6.4-8.2)
[2021-01-02] MEDS: AMIODARONE HCL 200 MG TABLET PO SCH ×2 (14:35→21:21)
[2021-01-02] MEDS: ROSUVASTATIN CA 5 MG TABLET (FP) PO SCH (18:21)
[2021-01-03] MEDS ORDERED: LEVOTHYROXINE NA 25 MCG TABLET (FP) ONE (05:14)
[2021-01-03] MEDS ORDERED: LEVOTHYROXINE NA 112 MCG TABLET (FP) ONE (05:15)
[2021-01-03] MEDS: DROXIDOPA 300 MG GT SCH ×3 (06:11→22:39)
[2021-01-03] MEDS: LEVOTHYROXINE 25 MCG, LEVOTHYROXINE 112 MCG GT SCH (06:11)
[2021-01-03 08:53] LABS: BASO % 0.6 % (0-2.0); HEMATOCRIT 30.1 % (35.4-49); HEMOGLOBIN 10.4 GM/dL (11.7-16.9); LYMPH % 11.8 % (8-40); MCHC 34.4 g/dl (32.0-35.9); MEAN CELL VOLUME 87.3 fl (80-96); NEUT % 75.6 % (42.8-82.8); PLATELET COUNT 212 10^3/uL (134-434); RBC 3.45 M/mm3 (4.00-5.60); RDW 13.7 % (11.9-15.9); WHITE BLOOD COUNT 5.4 K/mm3 (4.0-10.0)
[2021-01-03 09:13] LABS: BLOOD UREA NITROGEN 16.5 mg/dL (7-18); CALCIUM 8.6 mg/dL (8.5-10.1)
[2021-01-03] MEDS: AMIODARONE HCL 200 MG TABLET PO SCH ×2 (09:54→22:31)
[2021-01-03] MEDS: ROSUVASTATIN CA 5 MG TABLET (FP) PO SCH (22:39)
[2021-01-04] MEDS ORDERED: LEVOTHYROXINE NA 25 MCG TABLET (FP) ONE (06:01)
[2021-01-04] MEDS ORDERED: LEVOTHYROXINE NA 112 MCG TABLET (FP) ONE (06:01)
[2021-01-04] MEDS: LEVOTHYROXINE 25 MCG, LEVOTHYROXINE 112 MCG GT SCH (06:05)
[2021-01-04] MEDS: DROXIDOPA 300 MG GT SCH ×2 (06:06→13:10)
[2021-01-04 06:32] VITALS: TEMP 97.6
[2021-01-04] MEDS: AMIODARONE HCL 200 MG TABLET PO SCH (09:04)
[2021-01-04 15:25] VITALS: BP 112/60; PULSE 77
== END 2021-01-04 15:33 | disposition home or self-care (01) | DRG 920 ==
LOC: JER 22:18 → JERBED 12-30 02:35 → OBSVTOIN 12-30 03:20 → J4W 12-30 15:21
PROVIDERS: ADMIT Internal Medicine; ATTEND Family Medicine
DX: K91.840 Postprocedural hemorrhage of a digestive system organ or structure following a digestive system procedure (principal); K92.2 Gastrointestinal hemorrhage, unspecified; D12.6 Benign neoplasm of colon, unspecified; E03.9 Hypothyroidism, unspecified; I50.9 Heart failure, unspecified; E78.5 Hyperlipidemia, unspecified; Z93.1 Gastrostomy status; K86.89 Other specified diseases of pancreas; I25.119 Atherosclerotic heart disease of native coronary artery with unspecified angina pectoris; E78.00 Pure hypercholesterolemia, unspecified; I11.0 Hypertensive heart disease with heart failure; J44.9 Chronic obstructive pulmonary disease, unspecified; I95.1 Orthostatic hypotension; K62.1 Rectal polyp; I48.0 Paroxysmal atrial fibrillation; E66.9 Obesity, unspecified; Z68.25 Body mass index [BMI] 25.0-25.9, adult; N40.0 Benign prostatic hyperplasia without lower urinary tract symptoms; M89.9 Disorder of bone, unspecified; Y83.9 Surgical procedure, unspecified as the cause of abnormal reaction of the patient, or of later complication, without mention of misadventure at the time of the procedure
CPT/HCPCS: 36415; 72158-TC; 74174-TC; 80048; 80053; 82272; 82378; 82728; 83540; 83550; 83735; 84443; 85025; 85027; 85610; 85730; 86140; 86850; 86900; 86901; 87081; 93005; 93010; 99285-25; C9803; G0378; U0003; U0005

== ENCOUNTER 2021-12-11 16:48 | Inpatient (IN) | payer OTHER, BC ==
[2021-12-11 17:39] VITALS: RESP 18
[2021-12-11 19:07] LABS: BASO % 1.1 % (0-2.0); HEMATOCRIT 36.2 % (35.4-49); HEMOGLOBIN 11.5 GM/dL (11.7-16.9); MCH 28.8 pg (25.7-33.7); MCHC 31.7 g/dl (32.0-35.9); MEAN CELL VOLUME 90.6 fl (80-96); MEAN PLT VOLUME 8.9 fl (7.5-11.1); MONO % 3.4 % (3.8-10.2); NEUT % 94.5 % (42.8-82.8); PLATELET COUNT 225 10^3/uL (134-434); RDW 13.7 % (11.9-15.9); WHITE BLOOD COUNT 23.6 K/mm3 (4.0-10.0)
[2021-12-11 19:27] LABS: CALCIUM 9.1 mg/dL (8.5-10.1)
[2021-12-11 19:28] LABS: BLOOD UREA NITROGEN 27.9 mg/dL (7-18)
[2021-12-11 19:32] LABS: BILIRUBIN,TOTAL 0.8 mg/dL (0.2-1); TOT PROT 6.1 g/dl (6.4-8.2)
[2021-12-11 21:01] LABS: ANISOCYTOSIS 1+; MACROCYTOSIS 0
[2021-12-11] MEDS ORDERED: CEFTRIAXONE 1 GM in DEXTROSE 5%-WATER - 100 ML IVPB ONE (21:07)
[2021-12-11] MEDS ORDERED: AZITHROMYCIN IVPB 500 MG in DEXTROSE 5%-WATER - 250 ML IVPB ONE (21:07)
[2021-12-11] MEDS ORDERED: AZITHROMYCIN IVPB 500 MG/250 ML BAG IVPB ONE (21:21)
[2021-12-11] MEDS ORDERED: CEFTRIAXONE 1 GM/50 ML BAG ONE (21:21)
[2021-12-11] MEDS ORDERED: morphine SULFATE 4 MG/ML VIAL IVPUSH ONE (21:34)
[2021-12-11] MEDS ORDERED: DOCUSATE SODIUM 100 MG CAPSULE (FP) PO PRN (22:30)
[2021-12-11] MEDS ORDERED: ACETAMINOPHEN 1000 MG/100 ML BAG IVPB PRN (22:38)
[2021-12-12 01:09] LABS: EPI CELLS 17 /uL (0-25.1); HYALINE CASTS 6 /uL (0-3.1); URINE APPEARANCE CLEAR; URINE BACTERIA 11 /uL (0-1359); URINE BILIRUBIN NEGATIVE (NEGATIVE); URINE COLOR YELLOW; URINE GLUCOSE (UA) NEGATIVE (NEGATIVE); URINE KETONE TRACE (NEGATIVE); URINE LEUK ESTERASE TRACE (NEGATIVE); URINE NITRITE NEGATIVE (NEGATIVE); URINE PROTEIN 1+ (NEGATIVE); URINE RBC 53 /uL (0-23.9); URINE WBC 18 /uL (0-25.8)
[2021-12-12] MEDS: DEXTROSE 5%-NORMAL SALINE 1,000 ML IV SCH ×2 (01:30→21:43)
[2021-12-12 04:56] LABS: URINE CRYSTALS MANY /hpf
[2021-12-12] MEDS ORDERED: ALBUTEROL SO4 2.5/IPRATROPIUM 0.5 INH SOL 3 ML VIAL.NEB. NEB PRN (05:59)
[2021-12-12] MEDS: LEVOTHYROXINE 25 MCG, LEVOTHYROXINE 112 MCG GT SCH (06:37)
[2021-12-12] MEDS ORDERED: LEVOTHYROXINE NA 112 MCG TABLET (FP) PO SCH (07:00)
[2021-12-12] MEDS ORDERED: LEVOTHYROXINE NA 25 MCG TABLET (FP) PO SCH (07:00)
[2021-12-12] MEDS ORDERED: LEVOTHYROXINE 25 MCG, LEVOTHYROXINE 112 MCG PO SCH (07:00)
[2021-12-12] MEDS: ALBUTEROL SO4 2.5/IPRATROPIUM 0.5 INH SOL 3 ML VIAL.NEB. NEB SCH ×4 (08:15→19:49)
[2021-12-12 08:23] LABS: HEMATOCRIT 32.6 % (35.4-49); MCH 30.3 pg (25.7-33.7); MCHC 33.6 g/dl (32.0-35.9); MEAN CELL VOLUME 90.1 fl (80-96); MEAN PLT VOLUME 8.3 fl (7.5-11.1); PLATELET COUNT 194 10^3/uL (134-434); RBC 3.62 M/mm3 (4.00-5.60); RDW 13.5 % (11.9-15.9); WHITE BLOOD COUNT 18.5 K/mm3 (4.0-10.0)
[2021-12-12 08:51] LABS: BLOOD UREA NITROGEN 27.8 mg/dL (7-18); CALCIUM 8.8 mg/dL (8.5-10.1); MAGNESIUM 2.3 mg/dL (1.8-2.4)
[2021-12-12 08:54] LABS: PHOSPHOROUS 2.7 mg/dL (2.5-4.9)
[2021-12-12 08:55] LABS: CREATININE 0.7 mg/dL (0.55-1.3)
[2021-12-12 09:59] LABS: ANISOCYTOSIS 0; HELMET CELLS 0; HOWELL-JOLLY BODIES 0; MACROCYTOSIS 0; OVALOCYTE 0; ROULEAU 0; SICKELED CELLS 0; TARGET CELLS 0; TEAR DROP CELLS 0; TOXIC GRANULATION 0
[2021-12-12] MEDS ORDERED: AMIODARONE HCL 200 MG TABLET PO SCH (10:00)
[2021-12-12 15:27] VITALS: BMI 25.4
[2021-12-12] MEDS: CEFTRIAXONE 2 GM in DEXTROSE 5%-WATER 100 ML IVPB SCH (16:51)
[2021-12-12] MEDS ORDERED: CEFTRIAXONE 1 GM in DEXTROSE 5%-WATER - 50 ML IVPB SCH (21:00)
[2021-12-12] MEDS: ROSUVASTATIN CA 20 MG TABLET NGT SCH (21:37)
[2021-12-12] MEDS ORDERED: ROSUVASTATIN CA 20 MG TABLET PO SCH (22:00)
[2021-12-12] MEDS ORDERED: AZITHROMYCIN IVPB 500 MG/250 ML BAG IVPB SCH (22:00)
[2021-12-13] MEDS: LEVOTHYROXINE 25 MCG, LEVOTHYROXINE 112 MCG GT SCH (06:14)
[2021-12-13] MEDS: ALBUTEROL SO4 2.5/IPRATROPIUM 0.5 INH SOL 3 ML VIAL.NEB. NEB SCH ×4 (07:36→20:00)
[2021-12-13] MEDS ORDERED: TAMSULOSIN HCL 0.4 MG CAP PO ONE (08:49)
[2021-12-13] MEDS: CEFTRIAXONE 2 GM in DEXTROSE 5%-WATER 100 ML IVPB SCH (10:27)
[2021-12-13] MEDS: AMIODARONE HCL 200 MG TABLET PO SCH (10:28)
[2021-12-13] MEDS: DEXTROSE 5%-NORMAL SALINE 1,000 ML IV SCH (10:30)
[2021-12-13 16:26] LABS: HEMATOCRIT 30.7 % (35.4-49); MCH 29.4 pg (25.7-33.7); MCHC 32.5 g/dl (32.0-35.9); MEAN CELL VOLUME 90.3 fl (80-96); PLATELET COUNT 192 10^3/uL (134-434); RDW 13.3 % (11.9-15.9); WHITE BLOOD COUNT 9.4 K/mm3 (4.0-10.0)
[2021-12-13] MEDS: ROSUVASTATIN CA 20 MG TABLET NGT SCH (21:49)
[2021-12-14] MEDS: DROXIDOPA 300 MG GT SCH ×2 (02:55→02:56)
[2021-12-14] MEDS: LEVOTHYROXINE 25 MCG, LEVOTHYROXINE 112 MCG GT SCH (06:07)
[2021-12-14 06:40] VITALS: TEMP 98.3
[2021-12-14] MEDS: ALBUTEROL SO4 2.5/IPRATROPIUM 0.5 INH SOL 3 ML VIAL.NEB. NEB SCH ×2 (07:39→11:37)
[2021-12-14] MEDS ORDERED: TAMSULOSIN HCL 0.4 MG CAP PO SCH (08:30)
[2021-12-14 09:00] VITALS: BP 151/91; PULSE 90
[2021-12-14] MEDS: AMIODARONE HCL 200 MG TABLET PO SCH (10:43)
[2021-12-14] MEDS: CEFTRIAXONE 2 GM in DEXTROSE 5%-WATER 100 ML IVPB SCH (11:17)
== END 2021-12-14 14:17 | disposition home or self-care (01) | DRG 178 ==
LOC: JER 16:48 → JERBED 19:47 → J4S 12-12 00:16
PROVIDERS: ADMIT Internal Medicine; ATTEND Family Medicine
PROC: 3E0G76Z Introduction of Nutritional Substance into Upper GI, Via Natural or Artificial Opening (ICD-10-PCS; principal; 2021-12-11)
DX: J15.212 Pneumonia due to Methicillin resistant Staphylococcus aureus (principal); J98.11 Atelectasis; S22.42XA Multiple fractures of ribs, left side, initial encounter for closed fracture; E78.5 Hyperlipidemia, unspecified; E03.9 Hypothyroidism, unspecified; W19.XXXA Unspecified fall, initial encounter; Y93.89 Activity, other specified; Y92.002 Bathroom of unspecified non-institutional (private) residence as the place of occurrence of the external cause; Y99.8 Other external cause status; I25.10 Atherosclerotic heart disease of native coronary artery without angina pectoris; I27.20 Pulmonary hypertension, unspecified; I11.0 Hypertensive heart disease with heart failure; I50.9 Heart failure, unspecified; J44.9 Chronic obstructive pulmonary disease, unspecified; Z93.1 Gastrostomy status; D64.9 Anemia, unspecified; N40.0 Benign prostatic hyperplasia without lower urinary tract symptoms; R04.0 Epistaxis; I48.0 Paroxysmal atrial fibrillation; N20.0 Calculus of kidney; I95.1 Orthostatic hypotension; Z85.819 Personal history of malignant neoplasm of unspecified site of lip, oral cavity, and pharynx; I77.810 Thoracic aortic ectasia
CPT/HCPCS: 36415; 70450-TC; 70486-TC; 71046-TC-FY; 71250-TC; 72125-TC; 80048; 80053; 81003; 83735; 84100; 84443; 84484; 85025; 85027; 87040; 87070; 87086; 87186; 87205; 87899; 93005; 93010; 94640; 97116-GP; 97161-GP; 99285-25; C9803-CS; U0003; U0005

== ENCOUNTER 2022-02-25 04:33 | Day surgery (SDC) | payer OTHER, BC ==
[2022-02-22 09:25] VITALS: BMI 25.0
[2022-02-25 10:07] VITALS: TEMP 98
[2022-02-25 10:40] VITALS: PULSE 83
[2022-02-25 10:53] VITALS: BP 195/91; RESP 20
== END 2022-02-25 10:53 | disposition home or self-care (01) ==
LOC: JASU-ENDO 04:33
PROVIDERS: ATTEND Internal Medicine Gastroenterology
PROC: 0DBL8ZX Excision of Transverse Colon, Via Natural or Artificial Opening Endoscopic, Diagnostic (ICD-10-PCS; 2022-02-25)
PROC: 0DBP8ZX Excision of Rectum, Via Natural or Artificial Opening Endoscopic, Diagnostic (ICD-10-PCS; principal; 2022-02-25 09:30)
DX: Z12.11 Encounter for screening for malignant neoplasm of colon (principal); Z86.010 Personal history of colon polyps; D12.3 Benign neoplasm of transverse colon; K57.30 Diverticulosis of large intestine without perforation or abscess without bleeding; K63.5 Polyp of colon; Q43.8 Other specified congenital malformations of intestine; K64.8 Other hemorrhoids
CPT/HCPCS: 88305-TC

== ENCOUNTER 2022-04-17 02:15 | Emergency (ER) | payer OTHER, BC ==
[2022-04-17 02:26] VITALS: BP 178/80; PULSE 93; RESP 20; TEMP 98.1; BMI 25.0
[2022-04-17] MEDS ORDERED: LIDOCAINE HCL 2% JELLY 10 ML CARTRIDGE UR ONE (02:57)
[2022-04-17] MEDS ORDERED: LIDOCAINE HCL 2% JELLY 11 ML TP ONE (03:11)
== END 2022-04-17 04:05 | disposition home or self-care (01) ==
LOC: JER 02:15
DX: K94.23 Gastrostomy malfunction (principal)
CPT/HCPCS: 99282-25

== ENCOUNTER 2022-07-08 04:30 | Day surgery (SDC) | payer OTHER, BC ==
[2022-07-05 13:18] VITALS: BMI 25.2
[2022-07-08] MEDS ORDERED: PROPOFOL 20 ML ONE (07:35)
[2022-07-08] MEDS ORDERED: ONDANSETRON 4 MG/2 ML VIAL ONE (07:36)
[2022-07-08] MEDS ORDERED: MIDAZOLAM HCL 2 MG/2 ML SINGLE DOSE VIAL ONE ×2 (07:36→08:25)
[2022-07-08] MEDS ORDERED: PHENYLEPHRINE HCL 10 MG/1 ML SINGLE DOSE VIAL ONE (07:37)
[2022-07-08] MEDS ORDERED: BENZOIN/ALOE VERA/STORAX/TOLU 58 ML BOTTLE ONE (10:04)
[2022-07-08] MEDS ORDERED: ONDANSETRON 4 MG/2 ML VIAL IVPUSH PRN (10:16)
[2022-07-08] MEDS ORDERED: oxyCODONE HCL 5 MG TABLET PO PRN (10:16)
[2022-07-08] MEDS ORDERED: LABETALOL HCL 5 MG/1 ML (100MG/20 ML VIAL) IVPUSH ONE (10:19)
[2022-07-08] MEDS ORDERED: LABETALOL HCL 20 MG/4 ML VIAL ONE (10:21)
[2022-07-08] MEDS ORDERED: LACTATED RINGERS SOLUTION 1,000 ML IV SCH (10:30)
[2022-07-08] MEDS ORDERED: hydrALAZINE HCL 20 MG/ML VIAL ONE (11:12)
[2022-07-08] MEDS ORDERED: hydrALAZINE HCL 20 MG/ML VIAL IVPUSH ONE (12:41)
[2022-07-08 12:57] VITALS: RESP 18
[2022-07-08 14:09] VITALS: BP 130/70; PULSE 78; TEMP 98
== END 2022-07-08 13:35 | disposition home or self-care (01) ==
LOC: JASU-SURG 04:30
PROVIDERS: ATTEND Urology
PROC: 0VT08ZZ Resection of Prostate, Via Natural or Artificial Opening Endoscopic (ICD-10-PCS; principal; 2022-07-08 08:00)
DX: N40.1 Benign prostatic hyperplasia with lower urinary tract symptoms (principal); R33.8 Other retention of urine
CPT/HCPCS: 88305-TC; 94760

== ENCOUNTER 2022-10-07 03:35 | Emergency (ER) | payer OTHER, BC ==
[2022-10-07 03:42] VITALS: BP 178/100; PULSE 92; RESP 18; TEMP 97.8; BMI 25.0
== END 2022-10-07 06:01 | disposition home or self-care (01) ==
LOC: JER 03:35
PROC: 0D20XUZ Change Feeding Device in Upper Intestinal Tract, External Approach (ICD-10-PCS; principal; 2022-10-07)
DX: Z43.1 Encounter for attention to gastrostomy (principal)
CPT/HCPCS: 74018-TC-FY; 99284-25

== ENCOUNTER 2022-10-07 17:11 | Emergency (ER) | payer OTHER, BC ==
[2022-10-07 17:27] VITALS: BP 189/110; PULSE 94; RESP 16; TEMP 98.1; BMI 24.4
[2022-10-07 20:40] LABS: BASO % 0.4 % (0-2.0); EOS % 1.8 % (0-4.5); HEMATOCRIT 36.1 % (35.4-49); HEMOGLOBIN 12.1 GM/dL (11.7-16.9); LYMPH % 12.7 % (8-40); MCH 28.6 pg (25.7-33.7); MCHC 33.4 g/dl (32.0-35.9); MEAN CELL VOLUME 85.5 fl (80-96); MEAN PLT VOLUME 8.3 fl (7.5-11.1); MONO % 7.4 % (3.8-10.2); NEUT % 77.7 % (42.8-82.8); PLATELET COUNT 241 10^3/uL (134-434); RBC 4.22 M/mm3 (4.00-5.60); RDW 14.5 % (11.9-15.9); WHITE BLOOD COUNT 9.8 K/mm3 (4.0-10.0)
[2022-10-07 21:04] LABS: PLATELET ESTIMATE ADEQUATE
[2022-10-07 21:59] LABS: CALCIUM 9.1 mg/dL (8.5-10.1)
[2022-10-07 22:00] LABS: ALBUMIN 3.1 g/dl (3.4-5.0); POTASSIUM 4.8 mmol/L (3.5-5.1)
[2022-10-07 22:03] LABS: CREATININE 0.6 mg/dL (0.55-1.3)
[2022-10-07 22:05] LABS: TOT PROT 6.6 g/dl (6.4-8.2)
[2022-10-07 22:06] LABS: BILIRUBIN,TOTAL 0.4 mg/dL (0.2-1)
== END 2022-10-07 22:01 | disposition home or self-care (01) ==
LOC: JER 17:11
PROC: 0D20XUZ Change Feeding Device in Upper Intestinal Tract, External Approach (ICD-10-PCS; principal; 2022-10-07)
DX: T85.528A Displacement of other gastrointestinal prosthetic devices, implants and grafts, initial encounter (principal); Y83.1 Surgical operation with implant of artificial internal device as the cause of abnormal reaction of the patient, or of later complication, without mention of misadventure at the time of the procedure
CPT/HCPCS: 74018-TC-FY; 80053; 85025; 86850; 86900; 86901; 93005; 93010; 99285-25

== ENCOUNTER 2022-11-15 12:50 | Inpatient (IN) | payer OTHER, BC ==
[2022-11-15] MEDS ORDERED: dilTIAZem HCL 50 MG/10 ML - 10 ML VIAL IVPUSH ONE ×2 (13:37→15:16)
[2022-11-15] MEDS ORDERED: dilTIAZem HCL 125 MG/25 ML - 25 ML VIAL ONE ×2 (13:46→15:14)
[2022-11-15 14:05] LABS: BASO % 0.2 % (0-2.0); EOS % 0.3 % (0-4.5); HEMATOCRIT 38.5 % (35.4-49); HEMOGLOBIN 12.5 GM/dL (11.7-16.9); LYMPH % 7.5 % (8-40); MCH 28.6 pg (25.7-33.7); MCHC 32.4 g/dl (32.0-35.9); MEAN CELL VOLUME 88.4 fl (80-96); MEAN PLT VOLUME 9.2 fl (7.5-11.1); MONO % 7.4 % (3.8-10.2); NEUT % 84.6 % (42.8-82.8); PLATELET COUNT 201 10^3/uL (134-434); RBC 4.36 M/mm3 (4.00-5.60); RDW 14.3 % (11.9-15.9); WHITE BLOOD COUNT 13.3 K/mm3 (4.0-10.0)
[2022-11-15 14:14] LABS: INR 1.04 (0.83-1.09); PROTHROMBIN TIME (PATIENT) 12.1 SEC (9.7-13.0)
[2022-11-15 14:17] LABS: ACTIVATED PTT 29.1 SECONDS (25.2-36.5)
[2022-11-15] MEDS ORDERED: SODIUM CHLORIDE 0.9% 500 ML INFUS.BAG IV ONE (14:27)
[2022-11-15 14:37] LABS: POTASSIUM 4.5 mmol/L (3.5-5.1)
[2022-11-15 14:38] LABS: LACTIC ACID 3.3 mmol/L (0.4-2.0)
[2022-11-15 14:40] LABS: ALBUMIN 3.6 g/dl (3.4-5.0); BLOOD UREA NITROGEN 33.5 mg/dL (7-18); CALCIUM 9.4 mg/dL (8.5-10.1); MAGNESIUM 2.6 mg/dL (1.8-2.4)
[2022-11-15 14:43] LABS: CREATININE 1.1 mg/dL (0.55-1.3)
[2022-11-15 14:44] LABS: BILIRUBIN,TOTAL 0.8 mg/dL (0.2-1); TOT PROT 6.8 g/dl (6.4-8.2)
[2022-11-15 15:24] LABS: EPI CELLS >36 /uL (0-25.1); HYALINE CASTS 10 /uL (0-3.1); URINE APPEARANCE CLOUDY; URINE BACTERIA 60 /uL (0-1359); URINE BILIRUBIN NEGATIVE (NEGATIVE); URINE COLOR YELLOW; URINE GLUCOSE (UA) NEGATIVE (NEGATIVE); URINE KETONE TRACE (NEGATIVE); URINE LEUK ESTERASE 2+ (NEGATIVE); URINE NITRITE NEGATIVE (NEGATIVE); URINE PROTEIN 1+ (NEGATIVE); URINE RBC 16 /uL (0-23.9); URINE UROBILINOGEN 0.2 mg/dL (0.2-1.0); URINE WBC 349 /uL (0-25.8)
[2022-11-15 15:32] LABS: URINE CRYSTALS CA OXALATE /hpf
[2022-11-15] MEDS ORDERED: CEFTRIAXONE 1,000 MG in DEXTROSE 5%-WATER - 50 ML IVPB ONE (15:44)
[2022-11-15] MEDS ORDERED: CEFTRIAXONE 1 GM/50 ML BAG ONE (15:52)
[2022-11-15] MEDS ORDERED: ALBUTEROL SO4 2.5/IPRATROPIUM 0.5 INH SOL 3 ML VIAL.NEB. NEB PRN (16:02)
[2022-11-15] MEDS: D5-1/2NS+20 MEQ KCL - 20 MEQ/1,000 ML INFUS.BAG IV SCH (16:32)
[2022-11-15] MEDS: METOPROLOL TARTRATE 5 MG/5 ML VIAL IVPUSH PRN (20:19)
[2022-11-15] MEDS ORDERED: METOPROLOL TARTRATE 5 MG/5 ML VIAL IVPUSH ONE (20:24)
[2022-11-15] MEDS: HEPARIN NA (PORCINE) 5,000 UNITS/ML 1ML VIAL SQ SCH (21:46)
[2022-11-16] MEDS: LEVOTHYROXINE 112 MCG, LEVOTHYROXINE 25 MCG PEG SCH (06:39)
[2022-11-16] MEDS: D5-1/2NS+20 MEQ KCL - 20 MEQ/1,000 ML INFUS.BAG IV SCH ×2 (06:39→18:36)
[2022-11-16 08:24] LABS: BASO % 0.2 % (0-2.0); EOS % 1.4 % (0-4.5); HEMATOCRIT 34.9 % (35.4-49); HEMOGLOBIN 11.5 GM/dL (11.7-16.9); LYMPH % 8.8 % (8-40); MCH 29.2 pg (25.7-33.7); MEAN CELL VOLUME 88.3 fl (80-96); MEAN PLT VOLUME 9.1 fl (7.5-11.1); MONO % 8.6 % (3.8-10.2); PLATELET COUNT 175 10^3/uL (134-434); RBC 3.96 M/mm3 (4.00-5.60); RDW 14.5 % (11.9-15.9); WHITE BLOOD COUNT 8.6 K/mm3 (4.0-10.0)
[2022-11-16 08:41] LABS: CALCIUM 8.6 mg/dL (8.5-10.1)
[2022-11-16 08:42] LABS: BLOOD UREA NITROGEN 22.1 mg/dL (7-18)
[2022-11-16 08:43] LABS: MAGNESIUM 2.1 mg/dL (1.8-2.4)
[2022-11-16 08:44] LABS: CREATININE 0.7 mg/dL (0.55-1.3)
[2022-11-16 08:46] LABS: BILIRUBIN,TOTAL 0.6 mg/dL (0.2-1); TOT PROT 5.7 g/dl (6.4-8.2)
[2022-11-16 09:16] LABS: ALBUMIN 2.8 g/dl (3.4-5.0)
[2022-11-16] MEDS: CEFTRIAXONE 1 GM in DEXTROSE 5%-WATER - 50 ML IVPB SCH (09:55)
[2022-11-16] MEDS: METOPROLOL TARTRATE 50 MG TABLET (FP) GT SCH (09:56)
[2022-11-16] MEDS: ASPIRIN 81 MG CHEWABLE TABLETS PEG SCH (09:56)
[2022-11-16] MEDS: HEPARIN NA (PORCINE) 5,000 UNITS/ML 1ML VIAL SQ SCH ×2 (09:56→21:35)
[2022-11-16] MEDS ORDERED: PATIENT'S OWN MEDICATION (NON-FORMULARY) (Levothyroxine Sodium [Levothyroxine] 137 MCG Cap GT SCH (10:00)
[2022-11-16] MEDS ORDERED: MIDODRINE HCL 2.5 MG TABLET PO PRN (12:17)
[2022-11-16] MEDS: AMIODARONE HCL 200 MG TABLET PO SCH (21:34)
[2022-11-16] MEDS: METOPROLOL TARTRATE 5 MG/5 ML VIAL IVPUSH PRN (23:03)
[2022-11-17] MEDS: LEVOTHYROXINE 112 MCG, LEVOTHYROXINE 25 MCG PEG SCH (06:15)
[2022-11-17] MEDS: D5-1/2NS+20 MEQ KCL - 20 MEQ/1,000 ML INFUS.BAG IV SCH ×2 (08:20→22:33)
[2022-11-17] MEDS: HEPARIN NA (PORCINE) 5,000 UNITS/ML 1ML VIAL SQ SCH ×2 (10:05→22:33)
[2022-11-17] MEDS: AMIODARONE HCL 200 MG TABLET PO SCH ×2 (10:05→22:33)
[2022-11-17] MEDS: ASPIRIN 81 MG CHEWABLE TABLETS PEG SCH (10:05)
[2022-11-17] MEDS: CEFTRIAXONE 1 GM in DEXTROSE 5%-WATER - 50 ML IVPB SCH (10:06)
[2022-11-17] MEDS: METOPROLOL TARTRATE 50 MG TABLET (FP) GT SCH (10:07)
[2022-11-18] MEDS: LEVOTHYROXINE 112 MCG, LEVOTHYROXINE 25 MCG PEG SCH (06:31)
[2022-11-18 09:09] LABS: BASO % 0.2 % (0-2.0); EOS % 1.9 % (0-4.5); HEMATOCRIT 32.3 % (35.4-49); HEMOGLOBIN 10.8 GM/dL (11.7-16.9); LYMPH % 10.7 % (8-40); MCH 29.2 pg (25.7-33.7); MCHC 33.6 g/dl (32.0-35.9); MEAN CELL VOLUME 86.9 fl (80-96); MEAN PLT VOLUME 8.9 fl (7.5-11.1); MONO % 8.8 % (3.8-10.2); NEUT % 78.4 % (42.8-82.8); PLATELET COUNT 178 10^3/uL (134-434); RBC 3.72 M/mm3 (4.00-5.60); RDW 14.4 % (11.9-15.9); WHITE BLOOD COUNT 6.5 K/mm3 (4.0-10.0)
[2022-11-18] MEDS: METOPROLOL TARTRATE 25 MG TABLET (FP) GT SCH ×2 (09:55→21:52)
[2022-11-18] MEDS: ASPIRIN 81 MG CHEWABLE TABLETS PEG SCH (09:56)
[2022-11-18] MEDS: AMIODARONE HCL 200 MG TABLET PO SCH ×2 (09:56→21:51)
[2022-11-18] MEDS: CEFTRIAXONE 1 GM in DEXTROSE 5%-WATER - 50 ML IVPB SCH (09:58)
[2022-11-18] MEDS: METOPROLOL TARTRATE 5 MG/5 ML VIAL IVPUSH PRN (10:33)
[2022-11-18] MEDS: HEPARIN NA (PORCINE) 5,000 UNITS/ML 1ML VIAL SQ SCH ×2 (10:41→21:52)
[2022-11-18] MEDS ORDERED: dilTIAZem HCL 25 MG/5 ML - 5 ML VIAL IVPUSH PRN (15:18)
[2022-11-18] MEDS ORDERED: dilTIAZem HCL 25 MG/5 ML - 5 ML VIAL IVPUSH ONE ×2 (16:25→19:15)
[2022-11-18] MEDS: D5-1/2NS+20 MEQ KCL - 20 MEQ/1,000 ML INFUS.BAG IV SCH (16:52)
[2022-11-18] MEDS ORDERED: dilTIAZem HCL 30 MG TABLET PO SCH (17:08)
[2022-11-19] MEDS: METOPROLOL TARTRATE 5 MG/5 ML VIAL IVPUSH PRN (01:37)
[2022-11-19] MEDS: LEVOTHYROXINE 112 MCG, LEVOTHYROXINE 25 MCG PEG SCH (06:17)
[2022-11-19] MEDS ORDERED: METOPROLOL TARTRATE 50 MG TABLET (FP) GT SCH ×2 (07:30→22:00)
[2022-11-19] MEDS: CEFTRIAXONE 1 GM in DEXTROSE 5%-WATER - 50 ML IVPB SCH (09:06)
[2022-11-19] MEDS: HEPARIN NA (PORCINE) 5,000 UNITS/ML 1ML VIAL SQ SCH (09:06)
[2022-11-19] MEDS: ASPIRIN 81 MG CHEWABLE TABLETS PEG SCH (09:07)
[2022-11-19] MEDS: AMIODARONE HCL 200 MG TABLET PO SCH ×2 (09:07→22:32)
[2022-11-19] MEDS ORDERED: METOPROLOL TARTRATE 5 MG/5 ML VIAL IVPUSH PRN ×2 (14:02→21:56)
[2022-11-19] MEDS ORDERED: ALBUTEROL SO4 2.5/IPRATROPIUM 0.5 INH SOL 3 ML VIAL.NEB. NEB PRN ×2 (14:02→21:56)
[2022-11-19] MEDS ORDERED: MIDODRINE HCL 2.5 MG TABLET PO PRN ×2 (14:02→21:56)
[2022-11-19] MEDS ORDERED: METOPROLOL TARTRATE 5 MG/5 ML VIAL IVPUSH ONE ×3 (14:46→18:02)
[2022-11-19 15:54] VITALS: BMI 26.2
[2022-11-19] MEDS: guaiFENesin 200 MG/10 ML 10 ML UNIT-DOSE CUPS PO PRN (18:07)
[2022-11-19] MEDS: MUPIROCIN 2% TOPICAL OINTMENT FOR DECOLONIZATION NS SCH (21:15)
[2022-11-19] MEDS: CHLORHEXIDINE GLUCONATE 4% CLEANSER FOR DECOLONIZATION TP SCH (21:15)
[2022-11-19] MEDS ORDERED: HEPARIN NA (PORCINE) 5,000 UNITS/ML 1ML VIAL SQ SCH ×2 (22:00)
[2022-11-19] MEDS ORDERED: MUPIROCIN 2% TOPICAL OINTMENT FOR DECOLONIZATION NS SCH (22:00)
[2022-11-19] MEDS ORDERED: CHLORHEXIDINE GLUCONATE 4% CLEANSER FOR DECOLONIZATION TP SCH (22:00)
[2022-11-19] MEDS ORDERED: AMIODARONE HCL 200 MG TABLET PO SCH (22:00)
[2022-11-19 22:17] LABS: BASO % 0.2 % (0-2.0); HEMATOCRIT 32.5 % (35.4-49); HEMOGLOBIN 10.8 GM/dL (11.7-16.9); LYMPH % 9.5 % (8-40); MCH 28.8 pg (25.7-33.7); MCHC 33.3 g/dl (32.0-35.9); MEAN CELL VOLUME 86.4 fl (80-96); MEAN PLT VOLUME 7.8 fl (7.5-11.1); MONO % 10.5 % (3.8-10.2); NEUT % 78.8 % (42.8-82.8); PLATELET COUNT 211 10^3/uL (134-434); RBC 3.76 M/mm3 (4.00-5.60); RDW 14.2 % (11.9-15.9); WHITE BLOOD COUNT 7.9 K/mm3 (4.0-10.0)
[2022-11-19 22:26] LABS: INR 1.09 (0.83-1.09); PROTHROMBIN TIME (PATIENT) 12.6 SEC (9.7-13.0)
[2022-11-19] MEDS: METOPROLOL TARTRATE 50 MG TABLET (FP) GT SCH (22:33)
[2022-11-19 22:36] LABS: POTASSIUM 4.8 mmol/L (3.5-5.1)
[2022-11-19 22:38] LABS: ALBUMIN 2.6 g/dl (3.4-5.0); BLOOD UREA NITROGEN 13.1 mg/dL (7-18); CALCIUM 8.7 mg/dL (8.5-10.1); MAGNESIUM 2.1 mg/dL (1.8-2.4)
[2022-11-19 22:41] LABS: CREATININE 0.6 mg/dL (0.55-1.3); PHOSPHOROUS 3.2 mg/dL (2.5-4.9)
[2022-11-19 22:43] LABS: BILIRUBIN,TOTAL 0.3 mg/dL (0.2-1); TOT PROT 5.9 g/dl (6.4-8.2)
[2022-11-19] MEDS ORDERED: LACTATED RINGERS SOLUTION 1000 ML INFUS.BAG IV ONE (22:56)
[2022-11-20] MEDS ORDERED: AMIODARONE IN DEXTROSE,ISO-OSM 150 MG/100 ML BAG ONE (06:34)
[2022-11-20] MEDS: LEVOTHYROXINE 112 MCG, LEVOTHYROXINE 25 MCG PEG SCH (06:45)
[2022-11-20] MEDS ORDERED: AMIODARONE IN DEXTROSE,ISO-OSM 150 MG/100 ML BAG IVPB ONE (06:45)
[2022-11-20] MEDS ORDERED: LEVOTHYROXINE 112 MCG, LEVOTHYROXINE 25 MCG PEG SCH (07:00)
[2022-11-20 07:39] LABS: BASO % 0.2 % (0-2.0); EOS % 1.3 % (0-4.5); HEMATOCRIT 34.3 % (35.4-49); HEMOGLOBIN 11.2 GM/dL (11.7-16.9); LYMPH % 8.5 % (8-40); MCH 28.8 pg (25.7-33.7); MCHC 32.7 g/dl (32.0-35.9); MEAN CELL VOLUME 87.9 fl (80-96); MEAN PLT VOLUME 8.3 fl (7.5-11.1); MONO % 10.2 % (3.8-10.2); NEUT % 79.8 % (42.8-82.8); PLATELET COUNT 227 10^3/uL (134-434)
[2022-11-20 08:39] LABS: ALBUMIN 2.8 g/dl (3.4-5.0); CALCIUM 8.5 mg/dL (8.5-10.1)
[2022-11-20 08:41] LABS: CREATININE 0.6 mg/dL (0.55-1.3); PHOSPHOROUS 3.1 mg/dL (2.5-4.9)
[2022-11-20 08:44] LABS: BILIRUBIN,TOTAL 0.4 mg/dL (0.2-1)
[2022-11-20] MEDS: ASPIRIN 81 MG CHEWABLE TABLETS PEG SCH (09:13)
[2022-11-20] MEDS: METOPROLOL TARTRATE 50 MG TABLET (FP) GT SCH ×3 (09:13→21:20)
[2022-11-20] MEDS: AMIODARONE HCL 200 MG TABLET PO SCH ×2 (09:13→21:20)
[2022-11-20] MEDS: MUPIROCIN 2% TOPICAL OINTMENT FOR DECOLONIZATION NS SCH ×2 (09:14→21:20)
[2022-11-20] MEDS ORDERED: DIGOXIN 0.5 MG/2 ML AMPUL IVPUSH ONE ×3 (09:32→21:30)
[2022-11-20] MEDS ORDERED: CEFTRIAXONE 1 GM in DEXTROSE 5%-WATER - 50 ML IVPB SCH ×2 (10:00)
[2022-11-20] MEDS ORDERED: ASPIRIN 81 MG CHEWABLE TABLETS PEG SCH (10:00)
[2022-11-20] MEDS ORDERED: FUROSEMIDE 40 MG/4 ML INJECTABLE VIAL IVPUSH ONE (10:58)
[2022-11-20] MEDS: PANTOPRAZOLE 40 MG TABLET PO SCH (13:48)
[2022-11-20] MEDS ORDERED: METOPROLOL TARTRATE 50 MG TABLET (FP) GT SCH (18:00)
[2022-11-20] MEDS: CHLORHEXIDINE GLUCONATE 4% CLEANSER FOR DECOLONIZATION TP SCH (21:20)
[2022-11-20] MEDS ORDERED: ROSUVASTATIN CA 5 MG TABLET PO SCH (22:00)
[2022-11-21] MEDS: METOPROLOL TARTRATE 50 MG TABLET (FP) GT SCH ×4 (04:00→21:23)
[2022-11-21] MEDS: LEVOTHYROXINE 112 MCG, LEVOTHYROXINE 25 MCG PEG SCH (06:17)
[2022-11-21 07:39] LABS: BASO % 0.1 % (0-2.0); EOS % 0.3 % (0-4.5); HEMATOCRIT 35.1 % (35.4-49); HEMOGLOBIN 11.6 GM/dL (11.7-16.9); LYMPH % 4.2 % (8-40); MCH 28.8 pg (25.7-33.7); MCHC 32.9 g/dl (32.0-35.9); MEAN CELL VOLUME 87.4 fl (80-96); MEAN PLT VOLUME 8.4 fl (7.5-11.1); MONO % 10.9 % (3.8-10.2); NEUT % 84.5 % (42.8-82.8); PLATELET COUNT 244 10^3/uL (134-434); RBC 4.02 M/mm3 (4.00-5.60); RDW 13.7 % (11.9-15.9); WHITE BLOOD COUNT 10.7 K/mm3 (4.0-10.0)
[2022-11-21 08:05] LABS: POTASSIUM 4.1 mmol/L (3.5-5.1)
[2022-11-21 08:06] LABS: BLOOD UREA NITROGEN 11.3 mg/dL (7-18); CALCIUM 8.4 mg/dL (8.5-10.1)
[2022-11-21 08:08] LABS: ALBUMIN 2.5 g/dl (3.4-5.0); MAGNESIUM 1.8 mg/dL (1.8-2.4)
[2022-11-21 08:09] LABS: CREATININE 0.7 mg/dL (0.55-1.3)
[2022-11-21 08:11] LABS: PHOSPHOROUS 2.8 mg/dL (2.5-4.9)
[2022-11-21 08:12] LABS: BILIRUBIN,TOTAL 0.8 mg/dL (0.2-1)
[2022-11-21] MEDS: PANTOPRAZOLE 40 MG TABLET PO SCH (10:00)
[2022-11-21] MEDS: ASPIRIN 81 MG CHEWABLE TABLETS PEG SCH (10:00)
[2022-11-21] MEDS: AMIODARONE HCL 200 MG TABLET PO SCH ×2 (10:00→21:23)
[2022-11-21] MEDS: MUPIROCIN 2% TOPICAL OINTMENT FOR DECOLONIZATION NS SCH ×2 (10:00→21:22)
[2022-11-21] MEDS: CHLORHEXIDINE GLUCONATE 4% CLEANSER FOR DECOLONIZATION TP SCH (21:23)
[2022-11-22] MEDS: METOPROLOL TARTRATE 50 MG TABLET (FP) GT SCH ×4 (04:27→21:25)
[2022-11-22] MEDS: LEVOTHYROXINE 112 MCG, LEVOTHYROXINE 25 MCG PEG SCH (06:22)
[2022-11-22 07:40] LABS: BASO % 0.2 % (0-2.0); EOS % 1.3 % (0-4.5); HEMATOCRIT 33.1 % (35.4-49); HEMOGLOBIN 10.9 GM/dL (11.7-16.9); LYMPH % 5.6 % (8-40); MCH 28.8 pg (25.7-33.7); MCHC 33.1 g/dl (32.0-35.9); MEAN PLT VOLUME 8.3 fl (7.5-11.1); MONO % 12.6 % (3.8-10.2); NEUT % 80.3 % (42.8-82.8); PLATELET COUNT 254 10^3/uL (134-434); RDW 13.7 % (11.9-15.9); WHITE BLOOD COUNT 7.9 K/mm3 (4.0-10.0)
[2022-11-22 08:01] LABS: POTASSIUM 4.5 mmol/L (3.5-5.1)
[2022-11-22 08:06] LABS: ALBUMIN 2.3 g/dl (3.4-5.0); BLOOD UREA NITROGEN 13.1 mg/dL (7-18); CALCIUM 8.4 mg/dL (8.5-10.1); MAGNESIUM 1.9 mg/dL (1.8-2.4)
[2022-11-22 08:10] LABS: CREATININE 0.6 mg/dL (0.55-1.3); PHOSPHOROUS 2.6 mg/dL (2.5-4.9)
[2022-11-22 08:11] LABS: BILIRUBIN,TOTAL 0.4 mg/dL (0.2-1); TOT PROT 5.6 g/dl (6.4-8.2)
[2022-11-22] MEDS: PANTOPRAZOLE 40 MG TABLET PO SCH (09:07)
[2022-11-22] MEDS: guaiFENesin 200 MG/10 ML 10 ML UNIT-DOSE CUPS PO PRN ×3 (09:07→21:25)
[2022-11-22] MEDS: AMIODARONE HCL 200 MG TABLET PO SCH ×2 (09:07→21:25)
[2022-11-22] MEDS: ASPIRIN 81 MG CHEWABLE TABLETS PEG SCH (09:08)
[2022-11-22] MEDS: MUPIROCIN 2% TOPICAL OINTMENT FOR DECOLONIZATION NS SCH ×2 (09:12→21:25)
[2022-11-22] MEDS: CHLORHEXIDINE GLUCONATE 4% CLEANSER FOR DECOLONIZATION TP SCH (21:25)
[2022-11-22] MEDS ORDERED: ALBUTEROL SO4 2.5/IPRATROPIUM 0.5 INH SOL 3 ML VIAL.NEB. NEB PRN (23:19)
[2022-11-22] MEDS ORDERED: guaiFENesin 200 MG/10 ML 10 ML UNIT-DOSE CUPS PEG PRN (23:19)
[2022-11-22] MEDS ORDERED: MIDODRINE HCL 2.5 MG TABLET PEG PRN (23:19)
[2022-11-23] MEDS: METOPROLOL TARTRATE 50 MG TABLET (FP) PEG SCH ×2 (06:16→12:19)
[2022-11-23 06:34] VITALS: TEMP 98
[2022-11-23] MEDS ORDERED: LEVOTHYROXINE 112 MCG, LEVOTHYROXINE 25 MCG PEG SCH (07:00)
[2022-11-23] MEDS ORDERED: MUPIROCIN 2% TOPICAL OINTMENT FOR DECOLONIZATION NS SCH ×2 (10:00)
[2022-11-23] MEDS ORDERED: FAMOTIDINE 20 MG TABLET PO SCH (10:00)
[2022-11-23] MEDS ORDERED: ASPIRIN 81 MG CHEWABLE TABLETS PEG SCH (10:00)
[2022-11-23] MEDS ORDERED: AMIODARONE HCL 200 MG TABLET PEG SCH (10:00)
[2022-11-23 15:22] VITALS: BP 133/86; PULSE 98; RESP 17
[2022-11-23] MEDS ORDERED: CHLORHEXIDINE GLUCONATE 4% CLEANSER FOR DECOLONIZATION TP SCH ×2 (22:00)
== END 2022-11-23 16:00 | disposition home or self-care (01) | DRG 309 ==
LOC: JER 12:50 → JERBED 14:25 → J4S 20:12 → JICU 11-19 13:52 → J2W 11-22 18:40
PROVIDERS: ADMIT Family Medicine; ATTEND Family Medicine
DX: I48.92 Unspecified atrial flutter (principal); E87.20 Acidosis, unspecified; G90.3 Multi-system degeneration of the autonomic nervous system; N39.0 Urinary tract infection, site not specified; I48.0 Paroxysmal atrial fibrillation; E03.9 Hypothyroidism, unspecified; Z93.1 Gastrostomy status; I95.9 Hypotension, unspecified; I25.119 Atherosclerotic heart disease of native coronary artery with unspecified angina pectoris; E78.5 Hyperlipidemia, unspecified; N40.0 Benign prostatic hyperplasia without lower urinary tract symptoms
CPT/HCPCS: 0241U-QW; 36415; 71045-TC-FY; 80053; 80162; 81003; 83605; 83735; 84100; 84443; 84484; 85025; 85610; 85730; 87040; 87086; 93005; 93010; 97116-GP; 97162-GP; 99285-25; J0282; J1644

== ENCOUNTER 2022-12-23 05:21 | Day surgery (SDC) | payer OTHER, BC ==
[2022-12-19 12:50] VITALS: BMI 24.4
[2022-12-23] MEDS ORDERED: FENTANYL CITRATE/PF 50 MCG/ML VIAL ONE ×3 (12:00→14:51)
[2022-12-23] MEDS ORDERED: MIDAZOLAM HCL 2 MG/2 ML SINGLE DOSE VIAL ONE (12:00)
[2022-12-23] MEDS ORDERED: BUPIVACAINE HCL/PF 0.5% (5MG/ML) 10 ML VIAL ONE (12:02)
[2022-12-23] MEDS ORDERED: GENTAMICIN SO4 80 MG/2 ML VIAL IVPB ONE (12:15)
[2022-12-23] MEDS ORDERED: ceFAZolin SODIUM 1 GM VIAL IVPB ONE (12:17)
[2022-12-23] MEDS ORDERED: ceFAZolin SODIUM 1 GM VIAL ONE (12:18)
[2022-12-23] MEDS ORDERED: GENTAMICIN SO4 80 MG/2 ML VIAL ONE (12:21)
[2022-12-23] MEDS ORDERED: PROPOFOL 20 ML ONE (12:38)
[2022-12-23] MEDS ORDERED: LACTATED RINGERS SOLUTION 1,000 ML IV SCH (13:45)
[2022-12-23] MEDS: AMIODARONE HCL 200 MG TABLET GT ONE ×2 (16:36→16:57)
[2022-12-23] MEDS ORDERED: AMIODARONE HCL 200 MG TABLET ONE (16:45)
[2022-12-23 18:29] VITALS: BP 159/83; PULSE 60; RESP 18; TEMP 97.7
== END 2022-12-23 18:25 | disposition home or self-care (01) ==
LOC: JASU-SURG 05:21
PROVIDERS: ATTEND Urology
PROC: 0VT08ZZ Resection of Prostate, Via Natural or Artificial Opening Endoscopic (ICD-10-PCS; principal; 2022-12-23 12:30)
PROC: 0TND8ZZ Release Urethra, Via Natural or Artificial Opening Endoscopic (ICD-10-PCS; 2022-12-23 12:30)
DX: N40.1 Benign prostatic hyperplasia with lower urinary tract symptoms (principal); R33.9 Retention of urine, unspecified; N35.919 Unspecified urethral stricture, male, unspecified site; N13.8 Other obstructive and reflux uropathy
CPT/HCPCS: 76000-TC-FY; 88305-TC; 88312-TC; 94760

== ENCOUNTER 2023-01-24 19:36 | Emergency (ER) | payer OTHER, BC ==
[2023-01-24 19:40] VITALS: TEMP 97.9; BMI 24.4
[2023-01-24] MEDS ORDERED: SODIUM CHLORIDE 0.9% 500 ML INFUS.BAG IV ONE (20:12)
[2023-01-24 21:00] LABS: EPI CELLS 9 /uL (0-25.1); HYALINE CASTS 7 /uL (0-3.1); URINE APPEARANCE CLEAR; URINE BACTERIA 17 /uL (0-1359); URINE BILIRUBIN NEGATIVE (NEGATIVE); URINE COLOR YELLOW; URINE GLUCOSE (UA) NEGATIVE (NEGATIVE); URINE KETONE NEGATIVE (NEGATIVE); URINE LEUK ESTERASE 1+ (NEGATIVE); URINE NITRITE NEGATIVE (NEGATIVE); URINE PROTEIN 3+ (NEGATIVE); URINE WBC 487 /uL (0-25.8)
[2023-01-24 21:03] LABS: BASO % 0.3 % (0-2.0); EOS % 3.4 % (0-4.5); HEMATOCRIT 36.9 % (35.4-49); HEMOGLOBIN 12.6 GM/dL (11.7-16.9); LYMPH % 7.4 % (8-40); MCH 28.8 pg (25.7-33.7); MEAN CELL VOLUME 84.6 fl (80-96); MEAN PLT VOLUME 7.6 fl (7.5-11.1); MONO % 10.8 % (3.8-10.2); NEUT % 78.1 % (42.8-82.8); PLATELET COUNT 306 10^3/uL (134-434); RBC 4.36 M/mm3 (4.00-5.60); RDW 13.9 % (11.9-15.9); WHITE BLOOD COUNT 6.9 K/mm3 (4.0-10.0)
[2023-01-24] MEDS ORDERED: CEFTRIAXONE 1 GM/50 ML BAG ONE (21:24)
[2023-01-24 21:42] LABS: POTASSIUM 4.6 mmol/L (3.5-5.1)
[2023-01-24 21:44] LABS: CALCIUM 9.1 mg/dL (8.5-10.1)
[2023-01-24 21:45] LABS: ALBUMIN 3.4 g/dl (3.4-5.0); BLOOD UREA NITROGEN 25.8 mg/dL (7-18)
[2023-01-24 21:48] LABS: CREATININE 0.9 mg/dL (0.55-1.3)
[2023-01-24 21:49] LABS: BILIRUBIN,TOTAL 0.5 mg/dL (0.2-1); TOT PROT 7.5 g/dl (6.4-8.2)
[2023-01-24 22:40] VITALS: BP 155/83; PULSE 86; RESP 16
== END 2023-01-24 23:06 | disposition home or self-care (01) ==
LOC: JER 19:36
PROC: 3E033NZ Introduction of Analgesics, Hypnotics, Sedatives into Peripheral Vein, Percutaneous Approach (ICD-10-PCS; principal; 2023-01-24)
DX: R30.0 Dysuria (principal); R35.0 Frequency of micturition; N39.0 Urinary tract infection, site not specified; N41.0 Acute prostatitis
CPT/HCPCS: 36415; 80053; 81003; 84153; 85025; 87086; 93005; 93010; 99284-25

== ENCOUNTER 2023-02-03 14:04 | Observation (INO) | payer OTHER, BC ==
[2023-02-03 15:43] LABS: URINE COLOR RED
[2023-02-03 15:44] LABS: URINE APPEARANCE CLOUDY
[2023-02-03 15:54] LABS: URINE RBC >100 /uL (0-23.9)
[2023-02-03 15:57] LABS: EPI CELLS 3+ /uL (0-25.1); URINE BACTERIA 2+ /uL (0-1359)
[2023-02-03 18:28] LABS: BASO % 0.4 % (0-2.0); EOS % 2.6 % (0-4.5); HEMATOCRIT 34.3 % (35.4-49); HEMOGLOBIN 11.4 GM/dL (11.7-16.9); LYMPH % 12.1 % (8-40); MCH 28.1 pg (25.7-33.7); MCHC 33.3 g/dl (32.0-35.9); MEAN CELL VOLUME 84.4 fl (80-96); MEAN PLT VOLUME 7.6 fl (7.5-11.1); MONO % 8.5 % (3.8-10.2); NEUT % 76.4 % (42.8-82.8); PLATELET COUNT 284 10^3/uL (134-434); RBC 4.06 M/mm3 (4.00-5.60); RDW 14.3 % (11.9-15.9); WHITE BLOOD COUNT 6.2 K/mm3 (4.0-10.0)
[2023-02-03 18:34] LABS: PROTHROMBIN TIME (PATIENT) 11.6 SEC (9.7-13.0)
[2023-02-03 18:36] LABS: ACTIVATED PTT 30.3 SECONDS (25.2-36.5)
[2023-02-03 18:53] LABS: POTASSIUM 4.7 mmol/L (3.5-5.1)
[2023-02-03 18:55] LABS: ALBUMIN 3.2 g/dl (3.4-5.0); CALCIUM 8.8 mg/dL (8.5-10.1)
[2023-02-03 18:56] LABS: BLOOD UREA NITROGEN 27.1 mg/dL (7-18)
[2023-02-03 18:58] LABS: CREATININE 0.8 mg/dL (0.55-1.3)
[2023-02-03 19:00] LABS: BILIRUBIN,TOTAL 0.3 mg/dL (0.2-1); TOT PROT 6.4 g/dl (6.4-8.2)
[2023-02-03] MEDS ORDERED: LIDOCAINE HCL 2% JELLY 11 ML TP ONE (20:08)
[2023-02-03] MEDS ORDERED: ACETAMINOPHEN 325 MG TABLET (FP) PO PRN (21:57)
[2023-02-03] MEDS ORDERED: DOCUSATE SODIUM 100 MG CAPSULE (FP) PO PRN (21:57)
[2023-02-03 22:29] LABS: EPI CELLS 14 /uL (0-25.1); HYALINE CASTS 0 /uL (0-3.1); URINE APPEARANCE TURBID; URINE BACTERIA 0 /uL (0-1359); URINE BILIRUBIN 1+ (NEGATIVE); URINE COLOR RED; URINE GLUCOSE (UA) NEGATIVE (NEGATIVE); URINE KETONE NEGATIVE (NEGATIVE); URINE LEUK ESTERASE 2+ (NEGATIVE); URINE NITRITE NEGATIVE (NEGATIVE); URINE PROTEIN 2+ (NEGATIVE); URINE RBC 14065 /uL (0-23.9); URINE UROBILINOGEN 0.2 mg/dL (0.2-1.0); URINE WBC 142 /uL (0-25.8)
[2023-02-04] MEDS ORDERED: METOPROLOL TARTRATE 50 MG TABLET (FP) PEG ONE (03:55)
[2023-02-04] MEDS ORDERED: ALBUTEROL SO4 2.5/IPRATROPIUM 0.5 INH SOL 3 ML VIAL.NEB. NEB PRN (03:58)
[2023-02-04] MEDS ORDERED: MIDODRINE HCL 2.5 MG TABLET PEG PRN (03:58)
[2023-02-04 05:50] VITALS: BMI 23.2
[2023-02-04] MEDS ORDERED: LEVOTHYROXINE NA 150 MCG TABLET PO SCH (07:00)
[2023-02-04] MEDS ORDERED: DOCUSATE NA 100 MG/10 ML UNIT-DOSE CUPS GT PRN (09:08)
[2023-02-04] MEDS ORDERED: TAMSULOSIN HCL 0.4 MG CAP PO SCH (09:15)
[2023-02-04 09:37] LABS: BASO % 0.5 % (0-2.0); HEMATOCRIT 33.8 % (35.4-49); LYMPH % 14.5 % (8-40); MCHC 32.6 g/dl (32.0-35.9); MEAN CELL VOLUME 85.9 fl (80-96); MEAN PLT VOLUME 7.9 fl (7.5-11.1); MONO % 10.6 % (3.8-10.2); NEUT % 72.4 % (42.8-82.8); PLATELET COUNT 279 10^3/uL (134-434); RBC 3.93 M/mm3 (4.00-5.60); RDW 13.6 % (11.9-15.9); WHITE BLOOD COUNT 5.6 K/mm3 (4.0-10.0)
[2023-02-04 09:50] LABS: POTASSIUM 3.8 mmol/L (3.5-5.1)
[2023-02-04 09:52] LABS: BLOOD UREA NITROGEN 20.6 mg/dL (7-18); CALCIUM 8.9 mg/dL (8.5-10.1)
[2023-02-04 09:56] LABS: CREATININE 0.9 mg/dL (0.55-1.3)
[2023-02-04] MEDS ORDERED: METOPROLOL TARTRATE 50 MG TABLET (FP) GT SCH ×3 (10:00→18:00)
[2023-02-04] MEDS ORDERED: AMIODARONE HCL 200 MG TABLET PEG SCH ×2 (10:00→12:00)
[2023-02-04 14:35] VITALS: BP 132/72; PULSE 68; RESP 16; TEMP 98.1
[2023-02-04] MEDS ORDERED: ROSUVASTATIN CA 5 MG TABLET NR SCH (22:00)
[2023-02-05] MEDS ORDERED: TAMSULOSIN HCL 0.4 MG CAP PO SCH (08:30)
== END 2023-02-04 11:40 | disposition home or self-care (01) ==
LOC: JER 14:04 → JERBED 21:42 → J8W 02-04 02:36
PROVIDERS: ADMIT Internal Medicine; ATTEND Family Medicine
PROC: 0TWB70Z Revision of Drainage Device in Bladder, Via Natural or Artificial Opening (ICD-10-PCS; principal; 2023-02-03)
DX: R31.9 Hematuria, unspecified (principal); N40.0 Benign prostatic hyperplasia without lower urinary tract symptoms; G90.4 Autonomic dysreflexia; I95.1 Orthostatic hypotension; I48.91 Unspecified atrial fibrillation; Z93.1 Gastrostomy status; E78.5 Hyperlipidemia, unspecified; I50.9 Heart failure, unspecified; K57.90 Diverticulosis of intestine, part unspecified, without perforation or abscess without bleeding; E03.9 Hypothyroidism, unspecified; G89.29 Other chronic pain; M54.50 Low back pain, unspecified; C80.1 Malignant (primary) neoplasm, unspecified; N28.1 Cyst of kidney, acquired
CPT/HCPCS: 36415; 51702; 74176-TC; 76857; 80048; 80053; 81003; 84443; 85025; 85610; 85730; 87086; 93005; 93010; 99285-25; G0378

== ENCOUNTER 2023-02-16 06:41 | Observation (INO) | payer OTHER, BC ==
[2023-02-16 06:47] VITALS: BMI 23.7
[2023-02-16] MEDS ORDERED: SODIUM CHLORIDE 1,000 ML IV STA (07:34)
[2023-02-16] MEDS ORDERED: DEXTROSE 5%-NORMAL SALINE 1,000 ML IV SCH (08:15)
[2023-02-16 08:16] LABS: BASO % 0.2 % (0-2.0); EOS % 1.7 % (0-4.5); HEMATOCRIT 35.4 % (35.4-49); HEMOGLOBIN 11.8 GM/dL (11.7-16.9); LYMPH % 11.8 % (8-40); MCH 28.6 pg (25.7-33.7); MCHC 33.3 g/dl (32.0-35.9); MEAN CELL VOLUME 85.9 fl (80-96); MEAN PLT VOLUME 8.2 fl (7.5-11.1); MONO % 11.3 % (3.8-10.2); PLATELET COUNT 340 10^3/uL (134-434); RBC 4.13 M/mm3 (4.00-5.60); RDW 15.1 % (11.9-15.9); WHITE BLOOD COUNT 5.7 K/mm3 (4.0-10.0)
[2023-02-16 08:24] LABS: INR 0.96 (0.83-1.09); PROTHROMBIN TIME (PATIENT) 11.1 SEC (9.7-13.0)
[2023-02-16 08:26] LABS: ACTIVATED PTT 20.6 SECONDS (25.2-36.5)
[2023-02-16 08:32] LABS: POTASSIUM 5.8 mmol/L (3.5-5.1)
[2023-02-16 08:34] LABS: ALBUMIN 3.1 g/dl (3.4-5.0); BLOOD UREA NITROGEN 19.4 mg/dL (7-18); CALCIUM 9.2 mg/dL (8.5-10.1)
[2023-02-16 08:37] LABS: CREATININE 0.8 mg/dL (0.55-1.3)
[2023-02-16 08:39] LABS: BILIRUBIN,TOTAL 0.6 mg/dL (0.2-1); TOT PROT 6.9 g/dl (6.4-8.2)
[2023-02-16 10:40] LABS: POTASSIUM 4.6 mmol/L (3.5-5.1)
[2023-02-16 10:42] LABS: CALCIUM 8.7 mg/dL (8.5-10.1)
[2023-02-16 10:43] LABS: BLOOD UREA NITROGEN 18.8 mg/dL (7-18)
[2023-02-16 10:47] LABS: CREATININE 0.7 mg/dL (0.55-1.3)
[2023-02-16] MEDS ORDERED: D5-1/2NS+10 MEQ KCL - 10 MEQ/1,000 ML INFUS.BAG IV SCH (11:00)
[2023-02-16] MEDS ORDERED: METOPROLOL TARTRATE 5 MG/5 ML VIAL ONE ×2 (11:13→18:19)
[2023-02-16] MEDS: METOPROLOL TARTRATE 5 MG/5 ML VIAL IVPUSH SCH ×2 (11:17→18:36)
[2023-02-16] MEDS ORDERED: AMPICILLIN NA/SULBACTAM NA 3 GM VIAL ONE ×2 (11:26→18:19)
[2023-02-16] MEDS: AMPICILLIN NA/SULBACTAM NA 3 GM in SODIUM CHLORIDE 100 ML IVPB SCH ×2 (11:37→18:36)
[2023-02-16] MEDS ORDERED: DEXTROSE 5%-WATER - 1,000 ML IV SCH (12:45)
[2023-02-16] MEDS ORDERED: ALBUTEROL SO4 2.5/IPRATROPIUM 0.5 INH SOL 3 ML VIAL.NEB. NEB PRN (19:17)
[2023-02-17] MEDS ORDERED: AMPICILLIN NA/SULBACTAM NA 3 GM VIAL ONE ×3 (02:19→11:32)
[2023-02-17] MEDS ORDERED: METOPROLOL TARTRATE 5 MG/5 ML VIAL ONE ×2 (02:20→11:33)
[2023-02-17] MEDS ORDERED: ACETAMINOPHEN 1000 MG/100 ML BAG IVPB ONE (02:48)
[2023-02-17] MEDS: METOPROLOL TARTRATE 5 MG/5 ML VIAL IVPUSH SCH ×2 (02:59→11:55)
[2023-02-17] MEDS: AMPICILLIN NA/SULBACTAM NA 3 GM in SODIUM CHLORIDE 100 ML IVPB SCH ×2 (03:03→12:03)
[2023-02-17] MEDS ORDERED: ACETAMINOPHEN INJECTION 100 ML IVPB ONE (03:07)
[2023-02-17 06:16] VITALS: RESP 18; TEMP 97.9
[2023-02-17 06:57] LABS: BASO % 0.4 % (0-2.0); EOS % 1.3 % (0-4.5); HEMATOCRIT 33.6 % (35.4-49); LYMPH % 10.5 % (8-40); MCH 28.4 pg (25.7-33.7); MCHC 32.9 g/dl (32.0-35.9); MEAN CELL VOLUME 86.3 fl (80-96); MEAN PLT VOLUME 7.6 fl (7.5-11.1); MONO % 8.2 % (3.8-10.2); NEUT % 79.6 % (42.8-82.8); PLATELET COUNT 264 10^3/uL (134-434); RDW 14.8 % (11.9-15.9); WHITE BLOOD COUNT 5.5 K/mm3 (4.0-10.0)
[2023-02-17] MEDS ORDERED: LEVOTHYROXINE NA 150 MCG TABLET GT SCH (07:00)
[2023-02-17 07:06] LABS: POTASSIUM 4.1 mmol/L (3.5-5.1)
[2023-02-17 07:09] LABS: CALCIUM 8.7 mg/dL (8.5-10.1)
[2023-02-17 07:11] LABS: BLOOD UREA NITROGEN 11.2 mg/dL (7-18)
[2023-02-17 07:13] LABS: CREATININE 0.6 mg/dL (0.55-1.3)
[2023-02-17] MEDS ORDERED: AMIODARONE HCL 200 MG TABLET PEG SCH ×2 (12:00→12:07)
[2023-02-17 13:24] VITALS: BP 154/93; PULSE 69
[2023-02-18] MEDS ORDERED: LEVOTHYROXINE NA 150 MCG TABLET GT SCH (07:00)
[2023-02-18] MEDS ORDERED: AMIODARONE HCL 200 MG TABLET PEG SCH (10:00)
== END 2023-02-17 13:27 | disposition home or self-care (01) ==
LOC: JER 06:41 → JERBED 07:31
PROVIDERS: ADMIT Family Medicine; ATTEND Family Medicine
PROC: 0DW68UZ Revision of Feeding Device in Stomach, Via Natural or Artificial Opening Endoscopic (ICD-10-PCS; principal; 2023-02-16)
PROC: 3E033NZ Introduction of Analgesics, Hypnotics, Sedatives into Peripheral Vein, Percutaneous Approach (ICD-10-PCS; 2023-02-16)
PROC: 3E03329 Introduction of Other Anti-infective into Peripheral Vein, Percutaneous Approach (ICD-10-PCS; 2023-02-16)
PROC: 3E0337Z Introduction of Electrolytic and Water Balance Substance into Peripheral Vein, Percutaneous Approach (ICD-10-PCS; 2023-02-16)
PROC: 3E033GC Introduction of Other Therapeutic Substance into Peripheral Vein, Percutaneous Approach (ICD-10-PCS; 2023-02-16)
DX: K94.23 Gastrostomy malfunction (principal); E78.5 Hyperlipidemia, unspecified; I25.10 Atherosclerotic heart disease of native coronary artery without angina pectoris; I11.0 Hypertensive heart disease with heart failure; J44.9 Chronic obstructive pulmonary disease, unspecified; I48.91 Unspecified atrial fibrillation; Z85.819 Personal history of malignant neoplasm of unspecified site of lip, oral cavity, and pharynx; I50.9 Heart failure, unspecified; N40.0 Benign prostatic hyperplasia without lower urinary tract symptoms; D64.9 Anemia, unspecified; E07.9 Disorder of thyroid, unspecified
CPT/HCPCS: 36415; 49440; 80048; 80053; 85025; 85610; 85730; 86850; 86900; 86901; 96361; 96365; 96375; 99285-25; G0378

== ENCOUNTER 2023-03-06 11:37 | Inpatient (IN) | payer OTHER, BC ==
[2023-03-06 12:31] VITALS: BMI 23.0
[2023-03-06] MEDS ORDERED: SODIUM CHLORIDE 1,000 ML IV STA (12:41)
[2023-03-06] MEDS ORDERED: HYDROmorphone HCl 2 MG/ML VIAL IVPUSH STA (13:03)
[2023-03-06] MEDS ORDERED: HYDROmorphone HCl 2 MG/ML VIAL ONE ×2 (13:46→17:24)
[2023-03-06 14:27] LABS: BASO % 0.4 % (0-2.0); EOS % 0.4 % (0-4.5); HEMATOCRIT 36.6 % (35.4-49); LYMPH % 3.9 % (8-40); MCHC 32.6 g/dl (32.0-35.9); MEAN CELL VOLUME 85.8 fl (80-96); MEAN PLT VOLUME 7.4 fl (7.5-11.1); NEUT % 88.3 % (42.8-82.8); PLATELET COUNT 325 10^3/uL (134-434); RBC 4.27 M/mm3 (4.00-5.60); RDW 16.3 % (11.9-15.9); WHITE BLOOD COUNT 12.9 K/mm3 (4.0-10.0)
[2023-03-06 14:51] LABS: CHLORIDE 94 mmol/L (98-107); POTASSIUM 4.3 mmol/L (3.5-5.1); SODIUM 134 mmol/L (136-145)
[2023-03-06 14:53] LABS: ALBUMIN 2.8 g/dl (3.4-5.0); ANION GAP 7 mmol/L (4-13); CALCIUM 9.1 mg/dL (8.5-10.1); CO2 33 mmol/L (21-32); GLUCOSE,RANDOM 114 mg/dL (74-106); MAGNESIUM 2.4 mg/dL (1.8-2.4)
[2023-03-06 14:54] LABS: BLOOD UREA NITROGEN 15.9 mg/dL (7-18)
[2023-03-06 14:57] LABS: CREATININE 0.7 mg/dL (0.55-1.3); SGOT/AST 19 U/L (15-37); SGPT/ALT 15 U/L (13-61)
[2023-03-06 14:59] LABS: ALK PHOS 93 U/L (45-117); BILIRUBIN,TOTAL 0.6 mg/dL (0.2-1)
[2023-03-06] MEDS ORDERED: AZITHROMYCIN IVPB 500 MG in DEXTROSE 5%-WATER - 250 ML IVPB ONE (16:53)
[2023-03-06] MEDS ORDERED: HYDROmorphone HCl 2 MG/ML VIAL IVPUSH ONE (17:04)
[2023-03-06] MEDS ORDERED: CEFTRIAXONE 1 GM/50 ML BAG ONE (17:24)
[2023-03-06] MEDS ORDERED: AZITHROMYCIN IVPB 500 MG/250 ML BAG IVPB ONE (17:24)
[2023-03-07] MEDS ORDERED: HYDROmorphone HCL 2 MG TABLET PO ONE (04:57)
[2023-03-07] MEDS ORDERED: HYDROmorphone HCl 2 MG/ML VIAL IVPUSH ONE (05:30)
[2023-03-07] MEDS ORDERED: HYDROmorphone HCL 2 MG TABLET ONE (05:33)
[2023-03-07] MEDS ORDERED: HYDROmorphone HCl 2 MG/ML VIAL ONE (05:53)
[2023-03-07] MEDS ORDERED: MIDODRINE HCL 2.5 MG TABLET PEG PRN (07:27)
[2023-03-07] MEDS ORDERED: ALBUTEROL SO4 2.5/IPRATROPIUM 0.5 INH SOL 3 ML VIAL.NEB. NEB PRN (08:00)
[2023-03-07] MEDS ORDERED: METOPROLOL TARTRATE 50 MG TABLET (FP) ONE (09:18)
[2023-03-07] MEDS ORDERED: ASPIRIN 81 MG CHEWABLE TABLETS ONE (09:18)
[2023-03-07] MEDS ORDERED: AMIODARONE HCL 200 MG TABLET ONE ×2 (09:18→21:13)
[2023-03-07] MEDS ORDERED: methylPREDNISolone NA SUCC 40 MG/1 ML VIAL ONE ×2 (09:19→17:01)
[2023-03-07] MEDS ORDERED: CEFTRIAXONE 1 GM/50 ML BAG ONE (09:34)
[2023-03-07] MEDS ORDERED: AZITHROMYCIN IVPB 500 MG/250 ML BAG IVPB ONE (09:47)
[2023-03-07] MEDS: AZITHROMYCIN IVPB 500 MG/250 ML BAG IVPB SCH (09:56)
[2023-03-07] MEDS: ASPIRIN 81 MG CHEWABLE TABLETS PEG SCH (09:56)
[2023-03-07] MEDS: AMIODARONE HCL 200 MG TABLET PEG SCH ×2 (09:56→22:50)
[2023-03-07] MEDS: METOPROLOL TARTRATE 50 MG TABLET (FP) GT SCH (09:56)
[2023-03-07] MEDS: methylPREDNISolone NA SUCC 40 MG/1 ML VIAL IVPUSH SCH ×2 (09:56→17:09)
[2023-03-07] MEDS ORDERED: REMDESIVIR 200 MG in SODIUM CHLORIDE 250 ML IVPB ONE (10:00)
[2023-03-07] MEDS ORDERED: CEFTRIAXONE 1 GM in DEXTROSE 5%-WATER - 50 ML IVPB SCH (10:00)
[2023-03-07 10:01] LABS: HEMOGLOBIN 11.5 GM/dL (11.7-16.9); MCHC 32.9 g/dl (32.0-35.9); MEAN CELL VOLUME 85.2 fl (80-96); MEAN PLT VOLUME 7.9 fl (7.5-11.1); PLATELET COUNT 344 10^3/uL (134-434); RBC 4.11 M/mm3 (4.00-5.60); RDW 16.1 % (11.9-15.9); WHITE BLOOD COUNT 16.2 K/mm3 (4.0-10.0)
[2023-03-07 10:03] LABS: INR 1.31 (0.83-1.09); PROTHROMBIN TIME (PATIENT) 15.1 SEC (9.7-13.0)
[2023-03-07 10:06] LABS: ACTIVATED PTT 30.3 SECONDS (25.2-36.5)
[2023-03-07] MEDS ORDERED: LIDOCAINE 4% PATCH TP ONE (10:37)
[2023-03-07] MEDS: LIDOCAINE 4% PATCH TP SCH (10:42)
[2023-03-07 10:47] LABS: POTASSIUM 4.2 mmol/L (3.5-5.1)
[2023-03-07 10:52] LABS: BLOOD UREA NITROGEN 15.6 mg/dL (7-18); CALCIUM 8.6 mg/dL (8.5-10.1)
[2023-03-07 10:54] LABS: CREATININE 0.8 mg/dL (0.55-1.3)
[2023-03-07 11:13] LABS: ANISOCYTOSIS 0; MACROCYTOSIS 0
[2023-03-07] MEDS ORDERED: ALBUTEROL SO4 0.083% IH SOL 2.5 MG/3 ML VIAL.NEB. NEB PRN (14:43)
[2023-03-07] MEDS ORDERED: ALBUTEROL SO4 2.5/IPRATROPIUM 0.5 INH SOL 3 ML VIAL.NEB. NEB ONE (17:01)
[2023-03-07] MEDS: ALBUTEROL SO4 2.5/IPRATROPIUM 0.5 INH SOL 3 ML VIAL.NEB. NEB SCH ×2 (17:09→21:00)
[2023-03-07] MEDS: PIPERACILLIN/TAZOB 3.375 GM 3.375 GM in DEXTROSE 5%-WATER - 50 ML IVPB SCH (19:25)
[2023-03-07] MEDS ORDERED: ACETAMINOPHEN INJECTION 100 ML IVPB ONE (20:34)
[2023-03-07] MEDS: ACETAMINOPHEN 1000 MG/100 ML BAG IVPB PRN (20:56)
[2023-03-07] MEDS: LIDOCAINE PATCH REMOVAL MC SCH (21:47)
[2023-03-08] MEDS: PIPERACILLIN/TAZOB 3.375 GM 3.375 GM in DEXTROSE 5%-WATER - 50 ML IVPB SCH ×3 (02:33→17:33)
[2023-03-08] MEDS: methylPREDNISolone NA SUCC 40 MG/1 ML VIAL IVPUSH SCH ×3 (02:33→17:32)
[2023-03-08] MEDS: LEVOTHYROXINE NA 25 MCG TABLET (FP) PO SCH (06:36)
[2023-03-08] MEDS: LEVOTHYROXINE NA 112 MCG TABLET (FP) PEG SCH (06:36)
[2023-03-08] MEDS: ACETAMINOPHEN 1000 MG/100 ML BAG IVPB PRN (06:39)
[2023-03-08] MEDS: ALBUTEROL SO4 2.5/IPRATROPIUM 0.5 INH SOL 3 ML VIAL.NEB. NEB SCH ×4 (08:07→20:49)
[2023-03-08] MEDS: LIDOCAINE 4% PATCH TP SCH (10:24)
[2023-03-08] MEDS: ASPIRIN 81 MG CHEWABLE TABLETS PEG SCH (10:25)
[2023-03-08] MEDS: AMIODARONE HCL 200 MG TABLET PEG SCH ×2 (10:25→21:45)
[2023-03-08] MEDS: METOPROLOL TARTRATE 50 MG TABLET (FP) GT SCH (10:25)
[2023-03-08] MEDS: AZITHROMYCIN IVPB 500 MG/250 ML BAG IVPB SCH (10:32)
[2023-03-08 13:54] LABS: HEMATOCRIT 35.7 % (35.4-49); HEMOGLOBIN 11.8 GM/dL (11.7-16.9); MCH 28.1 pg (25.7-33.7); MCHC 33.1 g/dl (32.0-35.9); MEAN PLT VOLUME 7.5 fl (7.5-11.1); PLATELET COUNT 346 10^3/uL (134-434); WHITE BLOOD COUNT 22.8 K/mm3 (4.0-10.0)
[2023-03-08 14:23] LABS: ANISOCYTOSIS 1+; MACROCYTOSIS 0
[2023-03-08] MEDS: ENOXAPARIN NA (PORCINE) 40 MG/0.4 ML DISP.SYRIN SQ SCH ×2 (14:36→14:44)
[2023-03-08] MEDS ORDERED: REMDESIVIR 200 MG in SODIUM CHLORIDE 250 ML IVPB ONE (16:00)
[2023-03-08] MEDS: LIDOCAINE PATCH REMOVAL MC SCH (21:45)
[2023-03-09] MEDS: PIPERACILLIN/TAZOB 3.375 GM 3.375 GM in DEXTROSE 5%-WATER - 50 ML IVPB SCH ×3 (01:03→17:11)
[2023-03-09] MEDS: methylPREDNISolone NA SUCC 40 MG/1 ML VIAL IVPUSH SCH ×3 (01:03→17:14)
[2023-03-09] MEDS ORDERED: PIPERACILLIN/TAZOBACTAM 3.375 GM VIAL IVPB ONE (04:51)
[2023-03-09] MEDS: LEVOTHYROXINE NA 112 MCG TABLET (FP) PEG SCH (06:00)
[2023-03-09] MEDS: LEVOTHYROXINE NA 25 MCG TABLET (FP) PO SCH (06:00)
[2023-03-09 07:50] LABS: HEMATOCRIT 30.3 % (35.4-49); HEMOGLOBIN 10.1 GM/dL (11.7-16.9); MCH 28.2 pg (25.7-33.7); MCHC 33.5 g/dl (32.0-35.9); MEAN CELL VOLUME 84.1 fl (80-96); MEAN PLT VOLUME 7.7 fl (7.5-11.1); PLATELET COUNT 335 10^3/uL (134-434); RDW 16.2 % (11.9-15.9); WHITE BLOOD COUNT 25.5 K/mm3 (4.0-10.0)
[2023-03-09] MEDS: ALBUTEROL SO4 2.5/IPRATROPIUM 0.5 INH SOL 3 ML VIAL.NEB. NEB SCH ×4 (07:54→19:32)
[2023-03-09 08:59] LABS: ANISOCYTOSIS 3+; MACROCYTOSIS 0
[2023-03-09 09:24] LABS: BLOOD UREA NITROGEN 39.2 mg/dL (7-18); CALCIUM 9.3 mg/dL (8.5-10.1)
[2023-03-09 09:27] LABS: CREATININE 0.7 mg/dL (0.55-1.3)
[2023-03-09 09:28] LABS: BILIRUBIN,TOTAL 0.3 mg/dL (0.2-1); TOT PROT 5.7 g/dl (6.4-8.2)
[2023-03-09 09:31] LABS: ALBUMIN 2.1 g/dl (3.4-5.0)
[2023-03-09] MEDS: AZITHROMYCIN IVPB 500 MG/250 ML BAG IVPB SCH (11:01)
[2023-03-09] MEDS: LIDOCAINE 4% PATCH TP SCH (11:02)
[2023-03-09] MEDS: ASPIRIN 81 MG CHEWABLE TABLETS PEG SCH (11:02)
[2023-03-09] MEDS: AMIODARONE HCL 200 MG TABLET PEG SCH ×2 (11:02→21:22)
[2023-03-09] MEDS: METOPROLOL TARTRATE 50 MG TABLET (FP) GT SCH (11:03)
[2023-03-09] MEDS: ENOXAPARIN NA (PORCINE) 40 MG/0.4 ML DISP.SYRIN SQ SCH (11:04)
[2023-03-09] MEDS: REMDESIVIR 100 MG in SODIUM CHLORIDE 250 ML IVPB SCH (17:12)
[2023-03-09] MEDS: LIDOCAINE PATCH REMOVAL MC SCH (21:22)
[2023-03-10] MEDS: PIPERACILLIN/TAZOB 3.375 GM 3.375 GM in DEXTROSE 5%-WATER - 50 ML IVPB SCH ×3 (01:24→17:13)
[2023-03-10] MEDS: methylPREDNISolone NA SUCC 40 MG/1 ML VIAL IVPUSH SCH ×3 (02:06→17:13)
[2023-03-10] MEDS: LEVOTHYROXINE NA 25 MCG TABLET (FP) PO SCH (06:02)
[2023-03-10] MEDS: LEVOTHYROXINE NA 112 MCG TABLET (FP) PEG SCH (06:02)
[2023-03-10] MEDS: ALBUTEROL SO4 2.5/IPRATROPIUM 0.5 INH SOL 3 ML VIAL.NEB. NEB SCH ×4 (07:42→20:30)
[2023-03-10] MEDS ORDERED: PIPERACILLIN/TAZOBACTAM 3.375 GM VIAL IVPB ONE (09:51)
[2023-03-10] MEDS: METOPROLOL TARTRATE 50 MG TABLET (FP) GT SCH (09:56)
[2023-03-10] MEDS: ASPIRIN 81 MG CHEWABLE TABLETS PEG SCH ×2 (09:56→10:11)
[2023-03-10] MEDS: ENOXAPARIN NA (PORCINE) 40 MG/0.4 ML DISP.SYRIN SQ SCH ×2 (09:56→10:16)
[2023-03-10] MEDS: AMIODARONE HCL 200 MG TABLET PEG SCH ×2 (09:56→21:55)
[2023-03-10] MEDS: LIDOCAINE 4% PATCH TP SCH (09:57)
[2023-03-10] MEDS: AZITHROMYCIN IVPB 500 MG/250 ML BAG IVPB SCH (09:58)
[2023-03-10] MEDS: REMDESIVIR 100 MG in SODIUM CHLORIDE 250 ML IVPB SCH (15:33)
[2023-03-10] MEDS: ACETAMINOPHEN 1000 MG/100 ML BAG IVPB PRN ×2 (15:59→21:54)
[2023-03-10] MEDS: LIDOCAINE PATCH REMOVAL MC SCH (22:00)
[2023-03-11] MEDS: PIPERACILLIN/TAZOB 3.375 GM 3.375 GM in DEXTROSE 5%-WATER - 50 ML IVPB SCH ×3 (01:21→17:14)
[2023-03-11] MEDS: methylPREDNISolone NA SUCC 40 MG/1 ML VIAL IVPUSH SCH ×3 (01:21→17:57)
[2023-03-11] MEDS: LEVOTHYROXINE NA 112 MCG TABLET (FP) PEG SCH (06:09)
[2023-03-11] MEDS: LEVOTHYROXINE NA 25 MCG TABLET (FP) PO SCH (06:09)
[2023-03-11] MEDS: ACETAMINOPHEN 1000 MG/100 ML BAG IVPB PRN (06:16)
[2023-03-11 08:51] LABS: HEMATOCRIT 31.5 % (35.4-49); HEMOGLOBIN 10.4 GM/dL (11.7-16.9); MCH 27.5 pg (25.7-33.7); MCHC 32.8 g/dl (32.0-35.9); MEAN CELL VOLUME 83.9 fl (80-96); MEAN PLT VOLUME 7.6 fl (7.5-11.1); PLATELET COUNT 329 10^3/uL (134-434); RBC 3.76 M/mm3 (4.00-5.60); RDW 16.5 % (11.9-15.9); WHITE BLOOD COUNT 6.5 K/mm3 (4.0-10.0)
[2023-03-11] MEDS: ALBUTEROL SO4 2.5/IPRATROPIUM 0.5 INH SOL 3 ML VIAL.NEB. NEB SCH ×4 (09:03→20:05)
[2023-03-11] MEDS: METOPROLOL TARTRATE 50 MG TABLET (FP) GT SCH (09:15)
[2023-03-11] MEDS: LIDOCAINE 4% PATCH TP SCH (09:15)
[2023-03-11] MEDS: ASPIRIN 81 MG CHEWABLE TABLETS PEG SCH (09:15)
[2023-03-11] MEDS: AMIODARONE HCL 200 MG TABLET PEG SCH ×2 (09:15→21:17)
[2023-03-11] MEDS: ENOXAPARIN NA (PORCINE) 40 MG/0.4 ML DISP.SYRIN SQ SCH (09:16)
[2023-03-11] MEDS: AZITHROMYCIN IVPB 500 MG/250 ML BAG IVPB SCH (09:22)
[2023-03-11 10:00] LABS: POTASSIUM 4.8 mmol/L (3.5-5.1)
[2023-03-11 10:08] LABS: CALCIUM 8.7 mg/dL (8.5-10.1)
[2023-03-11 10:13] LABS: ALBUMIN 1.8 g/dl (3.4-5.0)
[2023-03-11 10:14] LABS: BLOOD UREA NITROGEN 31.4 mg/dL (7-18)
[2023-03-11 10:16] LABS: CREATININE 0.6 mg/dL (0.55-1.3)
[2023-03-11 10:18] LABS: BILIRUBIN,TOTAL 0.3 mg/dL (0.2-1); TOT PROT 5.1 g/dl (6.4-8.2)
[2023-03-11] MEDS: morphine SULFATE 4 MG/ML VIAL IVPUSH PRN ×2 (12:02→21:16)
[2023-03-11] MEDS: REMDESIVIR 100 MG in SODIUM CHLORIDE 250 ML IVPB SCH (17:13)
[2023-03-11] MEDS: LIDOCAINE PATCH REMOVAL MC SCH (21:18)
[2023-03-12] MEDS: methylPREDNISolone NA SUCC 40 MG/1 ML VIAL IVPUSH SCH ×3 (02:04→17:51)
[2023-03-12] MEDS: PIPERACILLIN/TAZOB 3.375 GM 3.375 GM in DEXTROSE 5%-WATER - 50 ML IVPB SCH ×3 (02:06→17:50)
[2023-03-12] MEDS: LEVOTHYROXINE NA 112 MCG TABLET (FP) PEG SCH (06:40)
[2023-03-12] MEDS: LEVOTHYROXINE NA 25 MCG TABLET (FP) PO SCH (06:40)
[2023-03-12] MEDS: morphine SULFATE 4 MG/ML VIAL IVPUSH PRN ×3 (06:54→21:26)
[2023-03-12] MEDS: ALBUTEROL SO4 2.5/IPRATROPIUM 0.5 INH SOL 3 ML VIAL.NEB. NEB SCH ×2 (07:35→11:40)
[2023-03-12 09:27] LABS: POTASSIUM 4.8 mmol/L (3.5-5.1)
[2023-03-12 09:29] LABS: ALBUMIN 1.9 g/dl (3.4-5.0); CALCIUM 9.2 mg/dL (8.5-10.1)
[2023-03-12 09:30] LABS: BLOOD UREA NITROGEN 28.2 mg/dL (7-18)
[2023-03-12 09:32] LABS: CREATININE 0.7 mg/dL (0.55-1.3)
[2023-03-12 09:34] LABS: BILIRUBIN,TOTAL 0.3 mg/dL (0.2-1); TOT PROT 5.1 g/dl (6.4-8.2)
[2023-03-12] MEDS: AZITHROMYCIN IVPB 500 MG/250 ML BAG IVPB SCH (09:35)
[2023-03-12] MEDS: LIDOCAINE 4% PATCH TP SCH (09:44)
[2023-03-12] MEDS: AMIODARONE HCL 200 MG TABLET PEG SCH ×2 (09:45→21:27)
[2023-03-12] MEDS: ENOXAPARIN NA (PORCINE) 40 MG/0.4 ML DISP.SYRIN SQ SCH (09:45)
[2023-03-12] MEDS: METOPROLOL TARTRATE 50 MG TABLET (FP) GT SCH (09:46)
[2023-03-12] MEDS: ASPIRIN 81 MG CHEWABLE TABLETS PEG SCH (09:46)
[2023-03-12] MEDS: REMDESIVIR 100 MG in SODIUM CHLORIDE 250 ML IVPB SCH (17:51)
[2023-03-12] MEDS: LIDOCAINE PATCH REMOVAL MC SCH (21:27)
[2023-03-13] MEDS: methylPREDNISolone NA SUCC 40 MG/1 ML VIAL IVPUSH SCH ×3 (02:46→18:17)
[2023-03-13] MEDS: PIPERACILLIN/TAZOB 3.375 GM 3.375 GM in DEXTROSE 5%-WATER - 50 ML IVPB SCH ×3 (02:46→18:17)
[2023-03-13] MEDS: LEVOTHYROXINE NA 112 MCG TABLET (FP) PEG SCH (06:06)
[2023-03-13] MEDS: LEVOTHYROXINE NA 25 MCG TABLET (FP) PO SCH (06:06)
[2023-03-13] MEDS: morphine SULFATE 4 MG/ML VIAL IVPUSH PRN (06:12)
[2023-03-13] MEDS: AZITHROMYCIN IVPB 500 MG/250 ML BAG IVPB SCH (11:20)
[2023-03-13] MEDS: ASPIRIN 81 MG CHEWABLE TABLETS PEG SCH (11:21)
[2023-03-13] MEDS: ENOXAPARIN NA (PORCINE) 40 MG/0.4 ML DISP.SYRIN SQ SCH (11:21)
[2023-03-13] MEDS: METOPROLOL TARTRATE 50 MG TABLET (FP) GT SCH (11:21)
[2023-03-13] MEDS: AMIODARONE HCL 200 MG TABLET PEG SCH ×2 (11:21→23:06)
[2023-03-13] MEDS: LIDOCAINE 4% PATCH TP SCH (11:22)
[2023-03-13] MEDS: oxyCODONE HCL 5 MG TABLET PO PRN ×2 (12:22→18:17)
[2023-03-14] MEDS: LIDOCAINE PATCH REMOVAL MC SCH ×2 (00:42→21:38)
[2023-03-14] MEDS: oxyCODONE HCL 5 MG TABLET PO PRN ×4 (00:42→21:45)
[2023-03-14] MEDS: methylPREDNISolone NA SUCC 40 MG/1 ML VIAL IVPUSH SCH ×3 (03:02→17:57)
[2023-03-14] MEDS: PIPERACILLIN/TAZOB 3.375 GM 3.375 GM in DEXTROSE 5%-WATER - 50 ML IVPB SCH ×3 (03:03→17:56)
[2023-03-14] MEDS: LEVOTHYROXINE NA 112 MCG TABLET (FP) PEG SCH (06:52)
[2023-03-14] MEDS: LEVOTHYROXINE NA 25 MCG TABLET (FP) PO SCH (06:52)
[2023-03-14 08:14] LABS: HEMOGLOBIN 10.6 GM/dL (11.7-16.9); MCH 27.1 pg (25.7-33.7); MCHC 32.1 g/dl (32.0-35.9); MEAN CELL VOLUME 84.4 fl (80-96); MEAN PLT VOLUME 7.5 fl (7.5-11.1); PLATELET COUNT 381 10^3/uL (134-434); RDW 16.5 % (11.9-15.9); WHITE BLOOD COUNT 11.9 K/mm3 (4.0-10.0)
[2023-03-14 08:40] LABS: POTASSIUM 4.8 mmol/L (3.5-5.1)
[2023-03-14 08:49] LABS: CALCIUM 8.4 mg/dL (8.5-10.1)
[2023-03-14 08:50] LABS: BLOOD UREA NITROGEN 32.4 mg/dL (7-18)
[2023-03-14 08:53] LABS: CREATININE 0.6 mg/dL (0.55-1.3)
[2023-03-14] MEDS: LIDOCAINE 4% PATCH TP SCH (10:59)
[2023-03-14] MEDS: ENOXAPARIN NA (PORCINE) 40 MG/0.4 ML DISP.SYRIN SQ SCH (10:59)
[2023-03-14] MEDS: AMIODARONE HCL 200 MG TABLET PEG SCH ×2 (11:00→21:38)
[2023-03-14] MEDS: AZITHROMYCIN IVPB 500 MG/250 ML BAG IVPB SCH (11:00)
[2023-03-14] MEDS: ASPIRIN 81 MG CHEWABLE TABLETS PEG SCH ×2 (11:00→11:20)
[2023-03-14] MEDS: METOPROLOL TARTRATE 50 MG TABLET (FP) GT SCH (11:00)
[2023-03-15] MEDS: methylPREDNISolone NA SUCC 40 MG/1 ML VIAL IVPUSH SCH ×3 (01:30→17:04)
[2023-03-15] MEDS: PIPERACILLIN/TAZOB 3.375 GM 3.375 GM in DEXTROSE 5%-WATER - 50 ML IVPB SCH ×3 (01:35→17:04)
[2023-03-15] MEDS: oxyCODONE HCL 5 MG TABLET PO PRN ×4 (04:53→20:58)
[2023-03-15] MEDS: LEVOTHYROXINE NA 112 MCG TABLET (FP) PEG SCH (06:06)
[2023-03-15] MEDS: LEVOTHYROXINE NA 25 MCG TABLET (FP) PO SCH (06:06)
[2023-03-15] MEDS: ENOXAPARIN NA (PORCINE) 40 MG/0.4 ML DISP.SYRIN SQ SCH (10:43)
[2023-03-15] MEDS: AMIODARONE HCL 200 MG TABLET PEG SCH ×2 (10:43→21:01)
[2023-03-15] MEDS: METOPROLOL TARTRATE 50 MG TABLET (FP) GT SCH (10:43)
[2023-03-15] MEDS: LIDOCAINE 4% PATCH TP SCH (10:43)
[2023-03-15] MEDS: ASPIRIN 81 MG CHEWABLE TABLETS PEG SCH (10:44)
[2023-03-15] MEDS: AZITHROMYCIN IVPB 500 MG/250 ML BAG IVPB SCH (10:44)
[2023-03-15] MEDS: guaiFENesin/D-METHORPHAN HB 10 ML UNIT-DOSE CUPS PEG PRN ×2 (11:16→20:57)
[2023-03-15] MEDS: LIDOCAINE PATCH REMOVAL MC SCH (21:01)
[2023-03-16] MEDS: PIPERACILLIN/TAZOB 3.375 GM 3.375 GM in DEXTROSE 5%-WATER - 50 ML IVPB SCH ×3 (01:39→19:08)
[2023-03-16] MEDS: methylPREDNISolone NA SUCC 40 MG/1 ML VIAL IVPUSH SCH ×2 (01:39→10:26)
[2023-03-16] MEDS: oxyCODONE HCL 5 MG TABLET PO PRN ×5 (02:05→19:50)
[2023-03-16] MEDS: LEVOTHYROXINE NA 25 MCG TABLET (FP) PO SCH (06:05)
[2023-03-16] MEDS: guaiFENesin/D-METHORPHAN HB 10 ML UNIT-DOSE CUPS PEG PRN ×3 (06:05→21:56)
[2023-03-16] MEDS: LEVOTHYROXINE NA 112 MCG TABLET (FP) PEG SCH (06:05)
[2023-03-16 08:24] LABS: HEMATOCRIT 33.3 % (35.4-49); HEMOGLOBIN 10.7 GM/dL (11.7-16.9); MCH 27.2 pg (25.7-33.7); MCHC 32.2 g/dl (32.0-35.9); MEAN CELL VOLUME 84.4 fl (80-96); MEAN PLT VOLUME 7.4 fl (7.5-11.1); PLATELET COUNT 374 10^3/uL (134-434); RBC 3.95 M/mm3 (4.00-5.60); RDW 16.5 % (11.9-15.9); WHITE BLOOD COUNT 12.5 K/mm3 (4.0-10.0)
[2023-03-16 08:47] LABS: POTASSIUM 4.7 mmol/L (3.5-5.1)
[2023-03-16 08:50] LABS: CALCIUM 8.2 mg/dL (8.5-10.1)
[2023-03-16 08:51] LABS: ALBUMIN 1.7 g/dl (3.4-5.0); BLOOD UREA NITROGEN 32.9 mg/dL (7-18)
[2023-03-16 08:54] LABS: CREATININE 0.7 mg/dL (0.55-1.3)
[2023-03-16 08:55] LABS: BILIRUBIN,TOTAL 0.4 mg/dL (0.2-1); TOT PROT 4.7 g/dl (6.4-8.2)
[2023-03-16 09:01] LABS: ANISOCYTOSIS 0; HELMET CELLS 0; HOWELL-JOLLY BODIES 0; MACROCYTOSIS 0; OVALOCYTE 0; ROULEAU 0; SICKELED CELLS 0; TARGET CELLS 0; TEAR DROP CELLS 0; TOXIC GRANULATION 0
[2023-03-16] MEDS: ENOXAPARIN NA (PORCINE) 40 MG/0.4 ML DISP.SYRIN SQ SCH ×2 (10:26→12:51)
[2023-03-16] MEDS: METOPROLOL TARTRATE 50 MG TABLET (FP) GT SCH (10:26)
[2023-03-16] MEDS: AMIODARONE HCL 200 MG TABLET PEG SCH ×2 (10:27→21:57)
[2023-03-16] MEDS: ASPIRIN 81 MG CHEWABLE TABLETS PEG SCH (10:27)
[2023-03-16] MEDS: AMINO ACIDS/PROTEIN HYDROLYS 30 ML LIQUID.PKT PO SCH (10:28)
[2023-03-16] MEDS: LIDOCAINE 4% PATCH TP SCH (10:28)
[2023-03-16] MEDS: AZITHROMYCIN IVPB 500 MG/250 ML BAG IVPB SCH (10:29)
[2023-03-16] MEDS: predniSONE 20 MG TABLET (UD) PO SCH (21:57)
[2023-03-16] MEDS: LIDOCAINE PATCH REMOVAL MC SCH (22:07)
[2023-03-17] MEDS: oxyCODONE HCL 5 MG TABLET PO PRN ×6 (00:40→22:41)
[2023-03-17] MEDS: PIPERACILLIN/TAZOB 3.375 GM 3.375 GM in DEXTROSE 5%-WATER - 50 ML IVPB SCH ×3 (01:34→18:40)
[2023-03-17] MEDS: LEVOTHYROXINE NA 112 MCG TABLET (FP) PEG SCH (06:02)
[2023-03-17] MEDS: LEVOTHYROXINE NA 25 MCG TABLET (FP) PO SCH (06:02)
[2023-03-17] MEDS: AMINO ACIDS/PROTEIN HYDROLYS 30 ML LIQUID.PKT PO SCH (09:14)
[2023-03-17] MEDS: predniSONE 20 MG TABLET (UD) PO SCH ×2 (09:15→21:52)
[2023-03-17] MEDS: AMIODARONE HCL 200 MG TABLET PEG SCH ×2 (09:15→21:52)
[2023-03-17] MEDS: ENOXAPARIN NA (PORCINE) 40 MG/0.4 ML DISP.SYRIN SQ SCH (09:15)
[2023-03-17] MEDS: METOPROLOL TARTRATE 50 MG TABLET (FP) GT SCH (09:15)
[2023-03-17] MEDS: AZITHROMYCIN IVPB 500 MG/250 ML BAG IVPB SCH (09:16)
[2023-03-17] MEDS: LIDOCAINE 4% PATCH TP SCH (09:16)
[2023-03-17] MEDS: ASPIRIN 81 MG CHEWABLE TABLETS PEG SCH (09:16)
[2023-03-17] MEDS: LIDOCAINE PATCH REMOVAL MC SCH (21:51)
[2023-03-18] MEDS: ACETAMINOPHEN 1000 MG/100 ML BAG IVPB PRN (00:29)
[2023-03-18] MEDS: PIPERACILLIN/TAZOB 3.375 GM 3.375 GM in DEXTROSE 5%-WATER - 50 ML IVPB SCH ×3 (01:37→17:24)
[2023-03-18] MEDS: LEVOTHYROXINE NA 112 MCG TABLET (FP) PEG SCH (06:05)
[2023-03-18] MEDS: LEVOTHYROXINE NA 25 MCG TABLET (FP) PO SCH (06:05)
[2023-03-18] MEDS: oxyCODONE HCL 5 MG TABLET PO PRN ×3 (06:05→17:24)
[2023-03-18 07:34] VITALS: RESP 18
[2023-03-18] MEDS: ASPIRIN 81 MG CHEWABLE TABLETS PEG SCH (09:16)
[2023-03-18] MEDS: METOPROLOL TARTRATE 50 MG TABLET (FP) GT SCH (09:16)
[2023-03-18] MEDS: AMIODARONE HCL 200 MG TABLET PEG SCH (09:16)
[2023-03-18] MEDS: AMINO ACIDS/PROTEIN HYDROLYS 30 ML LIQUID.PKT PO SCH (09:16)
[2023-03-18] MEDS: LIDOCAINE 4% PATCH TP SCH (09:17)
[2023-03-18] MEDS: predniSONE 20 MG TABLET (UD) PO SCH (09:17)
[2023-03-18] MEDS: ENOXAPARIN NA (PORCINE) 40 MG/0.4 ML DISP.SYRIN SQ SCH ×2 (09:20→09:47)
[2023-03-18] MEDS: AZITHROMYCIN IVPB 500 MG/250 ML BAG IVPB SCH (09:20)
[2023-03-18] MEDS ORDERED: ACETAMINOPHEN 1000 MG/100 ML BAG IVPB PRN (12:34)
[2023-03-18 15:56] VITALS: BP 115/65; PULSE 62; TEMP 97.3
[2023-03-18] MEDS ORDERED: ALBUTEROL SO4 2.5/IPRATROPIUM 0.5 INH SOL 3 ML VIAL.NEB. NEB SCH (16:00)
== END 2023-03-18 19:10 | DRG 177 ==
LOC: JER 11:37 → JERBED 16:55 → J4S 03-08 00:08
PROVIDERS: ADMIT Internal Medicine; ATTEND Family Medicine
PROC: XW033E5 Introduction of Remdesivir Anti-infective into Peripheral Vein, Percutaneous Approach, New Technology Group 5 (ICD-10-PCS; principal; 2023-03-06)
DX: U07.1 COVID-19 (principal); J18.9 Pneumonia, unspecified organism; S22.39XA Fracture of one rib, unspecified side, initial encounter for closed fracture; J44.1 Chronic obstructive pulmonary disease with (acute) exacerbation; E46 Unspecified protein-calorie malnutrition; J44.9 Chronic obstructive pulmonary disease, unspecified; I11.0 Hypertensive heart disease with heart failure; E78.5 Hyperlipidemia, unspecified; E03.9 Hypothyroidism, unspecified; Z68.23 Body mass index [BMI] 23.0-23.9, adult; W19.XXXA Unspecified fall, initial encounter; Y93.9 Activity, unspecified; Y92.89 Other specified places as the place of occurrence of the external cause; I48.91 Unspecified atrial fibrillation; N40.0 Benign prostatic hyperplasia without lower urinary tract symptoms; I50.9 Heart failure, unspecified
CPT/HCPCS: 0241U-QW; 36415; 70450-TC; 71045-TC-FY; 71250-TC; 80048; 80053; 82436; 82533; 82550; 82553; 82962; 83735; 83880; 83930; 83935; 84133; 84300; 84443; 84484; 85025; 85027; 85610; 85730; 86140; 87040; 87070; 87186; 87205; 93005; 93010; 94640; 94660; 97116-GP; 97161-GP; 99285-25; G0277; J0248

== ENCOUNTER 2023-03-27 09:00 | Inpatient (IN) | payer OTHER, BC ==
[2023-03-27] MEDS ORDERED: SODIUM CHLORIDE 0.9% 500 ML INFUS.BAG IV ONE ×2 (09:08→09:53)
[2023-03-27] MEDS ORDERED: ACETAMINOPHEN 1000 MG/100 ML BAG IVPB ONE (09:08)
[2023-03-27] MEDS ORDERED: ACETAMINOPHEN INJECTION 100 ML IVPB ONE (09:15)
[2023-03-27 09:59] LABS: HEMATOCRIT 25.1 % (35.4-49); HEMOGLOBIN 8.1 GM/dL (11.7-16.9); MCHC 32.3 g/dl (32.0-35.9); MEAN CELL VOLUME 86.6 fl (80-96); PLATELET COUNT 189 10^3/uL (134-434); RBC 2.89 M/mm3 (4.00-5.60); RDW 17.9 % (11.9-15.9); WHITE BLOOD COUNT 10.3 K/mm3 (4.0-10.0)
[2023-03-27] MEDS ORDERED: PIPERACILLIN/TAZOB 2.25 GM 2.25 GM in DEXTROSE 5%-WATER - 50 ML IVPB ONE (10:02)
[2023-03-27] MEDS ORDERED: VANCOMYCIN 1,000 MG in DEXTROSE 5%-WATER - 250 ML IVPB ONE (10:02)
[2023-03-27 10:09] LABS: INR 1.37 (0.83-1.09); PROTHROMBIN TIME (PATIENT) 15.8 SEC (9.7-13.0)
[2023-03-27 10:12] LABS: ACTIVATED PTT 29.8 SECONDS (25.2-36.5)
[2023-03-27 10:13] LABS: POTASSIUM 4.4 mmol/L (3.5-5.1)
[2023-03-27 10:15] LABS: CALCIUM 8.7 mg/dL (8.5-10.1)
[2023-03-27 10:16] LABS: ALBUMIN 1.6 g/dl (3.4-5.0); BLOOD UREA NITROGEN 43.3 mg/dL (7-18)
[2023-03-27 10:20] LABS: BILIRUBIN,TOTAL 0.7 mg/dL (0.2-1); TOT PROT 5.4 g/dl (6.4-8.2)
[2023-03-27 10:26] LABS: VENOUS BASE EXCESS 7.9 mmol/L (-2-2); VENOUS O2 SATURATION 86.1 % (70-80); VENOUS PCO2 48.1 mmHg (38-52); VENOUS PH 7.451 (7.310-7.410)
[2023-03-27] MEDS ORDERED: PIPERACILLIN/TAZOB 2.25 GM 2.25 GM/50 ML BAG IVPB ONE (10:31)
[2023-03-27] MEDS ORDERED: VANCOMYCIN 1 GRAM (PRE-DOCKED) 1,000 MG/250 ML BAG IVPB ONE (10:31)
[2023-03-27 10:52] LABS: LACTIC ACID 2.1 mmol/L (0.4-2.0)
[2023-03-27 11:02] LABS: N-TERMINAL BNP 14179.5 pg/ml (5-450)
[2023-03-27 11:03] LABS: EPI CELLS >36 /uL (0-25.1); HYALINE CASTS 6 /uL (0-3.1); URINE APPEARANCE TURBID; URINE BILIRUBIN 1+ (NEGATIVE); URINE COLOR DK YELLOW; URINE GLUCOSE (UA) NEGATIVE (NEGATIVE); URINE KETONE TRACE (NEGATIVE); URINE LEUK ESTERASE TRACE (NEGATIVE); URINE NITRITE NEGATIVE (NEGATIVE); URINE PROTEIN 2+ (NEGATIVE); URINE RBC 32 /uL (0-23.9); URINE WBC 341 /uL (0-25.8)
[2023-03-27 11:06] LABS: ANISOCYTOSIS 1+; MACROCYTOSIS 0
[2023-03-27 13:43] LABS: LACTIC ACID 2.2 mmol/L (0.4-2.0)
[2023-03-27] MEDS ORDERED: ALBUTEROL SO4 0.083% IH SOL 2.5 MG/3 ML VIAL.NEB. NEB PRN (17:28)
[2023-03-27] MEDS ORDERED: PIPERACILLIN/TAZOB 3.375 GM 3.375 GM in DEXTROSE 5%-WATER - 50 ML IVPB SCH (18:00)
[2023-03-27] MEDS: PIPERACILLIN/TAZOB 3.375 GM 3.375 GM in DEXTROSE 5%-WATER - 50 ML IVPB SCH (18:09)
[2023-03-27] MEDS: ALBUTEROL SO4 2.5/IPRATROPIUM 0.5 INH SOL 3 ML VIAL.NEB. NEB SCH (20:35)
[2023-03-27] MEDS ORDERED: PIPERACILLIN/TAZOB 2.25 GM 2.25 GM in DEXTROSE 5%-WATER - 50 ML IVPB SCH (21:00)
[2023-03-27] MEDS ORDERED: LABETALOL HCL 5 MG/1 ML (100MG/20 ML VIAL) IVPUSH ONE (21:38)
[2023-03-27] MEDS ORDERED: FUROSEMIDE 40 MG/4 ML INJECTABLE VIAL IVPUSH ONE (22:09)
[2023-03-27] MEDS: VANCOMYCIN/WATER FOR INJ (PEG) 1,000 MG/200 ML BAG IVPB SCH (22:34)
[2023-03-27] MEDS: METOPROLOL TARTRATE 50 MG TABLET (FP) PO SCH (22:59)
[2023-03-28] MEDS: PIPERACILLIN/TAZOB 3.375 GM 3.375 GM in DEXTROSE 5%-WATER - 50 ML IVPB SCH ×3 (01:01→17:00)
[2023-03-28] MEDS: ALBUTEROL SO4 2.5/IPRATROPIUM 0.5 INH SOL 3 ML VIAL.NEB. NEB SCH ×3 (06:11→15:58)
[2023-03-28] MEDS ORDERED: METOPROLOL TARTRATE 50 MG TABLET (FP) PO ONE (06:54)
[2023-03-28] MEDS ORDERED: LEVOTHYROXINE NA 112 MCG TABLET (FP) PO SCH (07:00)
[2023-03-28] MEDS ORDERED: LEVOTHYROXINE 112 MCG, LEVOTHYROXINE 25 MCG PO SCH (07:00)
[2023-03-28] MEDS ORDERED: LEVOTHYROXINE NA 150 MCG TABLET PO SCH (07:00)
[2023-03-28 07:14] LABS: HEMATOCRIT 25.7 % (35.4-49); HEMOGLOBIN 8.6 GM/dL (11.7-16.9); MCH 28.7 pg (25.7-33.7); MCHC 33.4 g/dl (32.0-35.9); PLATELET COUNT 188 10^3/uL (134-434); RBC 2.99 M/mm3 (4.00-5.60); RDW 17.7 % (11.9-15.9); RETICULOCYTES 1.53 % (0.5-1.5); WHITE BLOOD COUNT 10.6 K/mm3 (4.0-10.0)
[2023-03-28 07:26] LABS: POTASSIUM 3.5 mmol/L (3.5-5.1)
[2023-03-28 07:29] LABS: BLOOD UREA NITROGEN 44.3 mg/dL (7-18); CALCIUM 8.9 mg/dL (8.5-10.1)
[2023-03-28 07:30] LABS: ALBUMIN 1.7 g/dl (3.4-5.0)
[2023-03-28 07:34] LABS: BILIRUBIN,TOTAL 0.6 mg/dL (0.2-1); TOT PROT 5.5 g/dl (6.4-8.2)
[2023-03-28] MEDS: METOPROLOL TARTRATE 50 MG TABLET (FP) PO SCH (09:11)
[2023-03-28 09:57] LABS: ANISOCYTOSIS 2+; MACROCYTOSIS 0
[2023-03-28] MEDS: VANCOMYCIN/WATER FOR INJ (PEG) 1,000 MG/200 ML BAG IVPB SCH (10:04)
[2023-03-28] MEDS ORDERED: VANCOMYCIN/WATER FOR INJ (PEG) 1,000 MG/200 ML BAG IVPB SCH (11:00)
[2023-03-28] MEDS ORDERED: hydrALAZINE HCL 20 MG/ML VIAL IVPUSH ONE (12:40)
[2023-03-28] MEDS ORDERED: VANCOMYCIN IVPB SCH (13:00)
[2023-03-28] MEDS ORDERED: VANCOMYCIN 750 MG in DEXTROSE 5%-WATER - 150 ML IVPB SCH (13:00)
[2023-03-28] MEDS ORDERED: DEXTROSE 5% IVPB SCH (13:00)
[2023-03-28] MEDS ORDERED: WATER IVPB SCH (13:00)
[2023-03-28] MEDS: hydrALAZINE HCL 10 MG TABLET PO SCH ×2 (13:23→21:46)
[2023-03-28] MEDS ORDERED: methylPREDNISolone NA SUCC 40 MG/1 ML VIAL IVPUSH SCH (13:30)
[2023-03-28 17:23] VITALS: BMI 23.4
[2023-03-29] MEDS: hydrALAZINE HCL 10 MG TABLET PO SCH ×2 (05:55→13:10)
[2023-03-29] MEDS ORDERED: LEVOTHYROXINE NA 150 MCG TABLET PO SCH (07:00)
[2023-03-29] MEDS ORDERED: ACETAMINOPHEN 1000 MG/100 ML BAG IVPB PRN (10:36)
[2023-03-29] MEDS ORDERED: IBUPROFEN 800 MG/8 ML IJ IVPB PRN (10:36)
[2023-03-29 13:09] VITALS: TEMP 99.7
[2023-03-29 16:47] VITALS: BP 65/43; PULSE 92; RESP 16
== END 2023-03-29 16:55 | disposition expired | DRG 177 ==
LOC: JER 09:00 → JERBED 11:19 → J2W 16:38
PROVIDERS: ADMIT Internal Medicine; ATTEND Internal Medicine
DX: J69.0 Pneumonitis due to inhalation of food and vomit (principal); J96.01 Acute respiratory failure with hypoxia; I16.1 Hypertensive emergency; E87.20 Acidosis, unspecified; I48.91 Unspecified atrial fibrillation; I25.10 Atherosclerotic heart disease of native coronary artery without angina pectoris; E03.9 Hypothyroidism, unspecified; I27.20 Pulmonary hypertension, unspecified; D64.9 Anemia, unspecified; J44.9 Chronic obstructive pulmonary disease, unspecified; I11.0 Hypertensive heart disease with heart failure; I50.9 Heart failure, unspecified; N40.0 Benign prostatic hyperplasia without lower urinary tract symptoms; R79.89 Other specified abnormal findings of blood chemistry
CPT/HCPCS: 0241U-QW; 36415; 71045-TC-FY; 71260-TC; 74177-TC; 76604; 76705-TC; 80053; 80307; 81003; 82010; 82272; 82550; 82728; 82803; 82962; 83540; 83550; 83605; 83880; 84443; 84466; 84484; 85025; 85045; 85610; 85730; 86705; 86707; 86850; 86900; 86901; 87040; 87086; 87517; 87522; 93005; 93010; 93308; 94640; 94660; 99285-25; Q9967